=== PATIENT | female | born 1955 | race Caucasian/White ===

== ENCOUNTER → 2017-03-25 | Outpatient (CLI) | payer BC ==
--- NOTE | 2017-03-25 08:15 | US ---
EXAMINATION TYPE: US abdomen complete DATE OF EXAM: 03/25/2017 COMPARISON: NONE CLINICAL HISTORY: Abd pain R10.9. Intermittent RUQ/epigastric pain, worse with fatty food. Nausea and vomiting for 3 months EXAM MEASUREMENTS: Liver Length: 14.0 cm Gallbladder Wall: 0.2 cm CBD: 0.3 cm Spleen: 10.7 cm Right Kidney: 9.9 x 4.6 x 4.9 cm Left Kidney: 11.0 x 4.6 x 4.1 cm *Technical limitations due to large amount of overlying bowel content Pancreas: visualized portions appear wnl Liver: appears wnl Gallbladder: mobile stones Evidence for sonographic Tijerina's sign: No CBD: wnl Spleen: wnl Right Kidney: no evidence of hydronephrosis Left Kidney: no evidence of hydronephrosis Upper IVC: wnl Abd Aorta: wnl The liver is homogenous. The intrahepatic portion of the IVC and proximal abdominal aorta are within normal limits. Common bile duct is unremarkable. The visualized portions of the pancreas are homoge nous. The spleen is unremarkable. Kidneys are symmetric and free of hydronephrosis. No renal lesio ns are seen. IMPRESSION: Cholelithiasis without sonographic evidence of acute cholecystitis. HIDA with CCK scan co uld be performed to evaluate for biliary dyskinesia and/or chronic cholecystitis.
== END | disposition home or self-care (01) ==
LOC: RADUSWWP 06:57
PROVIDERS: ATTEND Internal Medicine Geriatric Medicine
DX: K80.20 Calculus of gallbladder without cholecystitis without obstruction (principal)
CPT/HCPCS: 76700

== ENCOUNTER → 2017-06-23 | Outpatient (CLI) | payer BC ==
--- NOTE | 2017-06-23 16:34 | BD ---
EXAMINATION TYPE: MG DEXA axial skeleton. DATE OF EXAM: 06/23/2017 COMPARISON: NONE CLINICAL HISTORY: 61-year-old female postmenopausal screening without HRT Height: 5 FT 7 1/2 IN Weight: 168 FRAX RISK QUESTIONS: Secondary Osteoporosis: 3. Menopause before 45: AGE 45 Current Tobacco Use: YES RISK FACTORS HISTORY OF: Active: YES Postmenopausal woman: AGE 45 MEDICATIONS: Additional Medications: LISINOPRIL Additional History: EXAM MEASUREMENTS: Bone mineral densitometry was performed using the Revee System. Bone mineral density as measured about the Lumbar spine is: ----- L1-L4(G/cm2): 1.303 T Score Values are as follows: ----- L2: 0.9 ----- L3: 1.6 ----- L4: 0.2 ----- L1-L4: 1.0 BASELINE Bone mineral density about the R hip (g/cm2): 1.085 Bone mineral density about the L hip (g/cm2): 1.171 T Score values are as follows: -----R Neck: 0.3 -----L Neck: 1.0 -----R Total: 0.7 -----L Total: 1.0 BASELINE IMPRESSION: Normal (Values between +1 and -1 indicate normal bone mass). Consider repeating this study in 5 year s or sooner if there is some new clinical indication. NOTE: T-SCORE=SD OF THE YOUNG ADULT MEAN.
--- NOTE | 2017-06-24 11:06 | MM ---
Reason for exam: screening (asymptomatic). History: Patient is postmenopausal. Physical Findings: A clinical breast exam by your physician is recommended on an annual basis and results should be correlated with mammographic findings. MG Screening Mammo w CAD Bilateral CC and MLO view(s) were taken. No prior studies available for comparison. The breast tissue is heterogeneously dense. This may lower the sensitivity of mammography. There are two masses on the left, the first at anterior depth in the upper outer quadrant measuring 4mm. The second in the upper outer quadrant at middle depth measuring 5-6mm. There are regional calcifications in the right upper central, slightly inner breast at 12:30-1:00. There is a 2mm group of calcifications in the upper left breast central or medial on CC view. ASSESSMENT: Incomplete: need additional imaging evaluation, BI-RAD 0 RECOMMENDATION: Special view mammogram of both breasts. If lesion persists on supplemental views, image directed ultrasound is recommended. [facility] will attempt to contact patient to return for supplemental views and ultrasound if indicated.
== END | disposition home or self-care (01) ==
LOC: RADMAMWWP 08:31
PROVIDERS: ATTEND Family Medicine
DX: Z12.31 Encounter for screening mammogram for malignant neoplasm of breast (principal); M89.9 Disorder of bone, unspecified; Z78.0 Asymptomatic menopausal state
CPT/HCPCS: 77067; 77080

== ENCOUNTER → 2017-06-26 | Outpatient (CLI) | payer BC ==
--- NOTE | 2017-06-30 08:52 | MM ---
Reason for exam: additional evaluation requested from abnormal screening. Last mammogram was performed less than 1 month ago. History: Patient is postmenopausal. Physical Findings: Nurse Summary: 1.5cm nodule in the right breast at 1 o'clock and a 0.5cm nodule in the left breast at 1 o'clock (nurse mj). MG Work Up Mamm w CAD BILAT Bilateral ML, CC with magnification, and ML with magnification view(s) were taken. Spot compression MLO and spot compression CC view(s) were taken of the left breast. Prior study comparison: June 23, 2017, bilateral MG screening mammo w CAD. Right: large area of pleomorphic calcifications upper central right breast 10.5cm from nipple. Left: multiple grouped foci of pleomorphic microcalcifications upper central and outer breast. These results were verbally communicated with the patient and result sheet given to the patient on 06/26/17. ASSESSMENT: Incomplete: need additional imaging evaluation, BI-RAD 0 RECOMMENDATION: Ultrasound of both breasts.
--- NOTE | 2017-06-30 08:55 | USB ---
Reason for exam: additional evaluation requested from abnormal screening. History: Patient is postmenopausal. US Breast Workup Limited JERAMIE Left limited breast ultrasound including focal area of concern, retroareolar and axilla demonstrates a 0.3 x 0.4 x 0.4cm cystic, benign lesion at 3 o'clock and a 0.7 x 0.6 x 0.4cm cystic, benign lesion at 3 o'clock. Right limited breast ultrasound including focal area of concern, retroareolar and axilla demonstrates dense tissue is seen at 12 o'clock possibly correlating to the focal asymmetry. These results were verbally communicated with the patient and result sheet given to the patient on 06/26/17. ASSESSMENT: Suspicious, BI-RAD 4 RECOMMENDATION: Stereotactic core biopsy of both breasts. (for calcifications) Called Dr. Asif with mammographic findings and has scheduled an appointment for the patient for 07/07/17 at 3:[address] Love. PRELIMINARY REPORT CALLED AND FAXED TO DR. LOVE ON 06/30/17.
== END | disposition home or self-care (01) ==
LOC: RADMAMWWP 14:56
PROVIDERS: ATTEND Family Medicine
DX: R92.8 Other abnormal and inconclusive findings on diagnostic imaging of breast (principal)
CPT/HCPCS: 77066

== ENCOUNTER → 2017-07-16 | Day surgery (SDC) | payer BC ==
[2017-07-16 09:14] VITALS: RESP 16; BMI 25.4
[2017-07-16 11:28] VITALS: BP 153/83; PULSE 80; TEMP 98
--- NOTE | 2017-07-16 13:51 | MM ---
EXAMINATION TYPE: MG stereo VAD BX LT, MG stereo VAD BX RT DATE OF EXAM: 07/16/2017 COMPARISON: 06/26/2017 CLINICAL HISTORY: Bilateral indeterminate breast calcifications for which stereotactic guided biopsy was recommended. TECHNIQUE: Stereotactic guided core biopsy of both breast. FINDINGS: The procedure of stereotactic guided core biopsy was explained to the patient. Benefits, alternatives, and risks were discussed. An informed consent was then obtained. Preprocedural timeout was performed. Site A (right breast regional calcifications spanning approximately 4.5 cm of the upper inner quadrant): The shortness pathway for biopsy was chosen. Shortness pathway was CC from above approach. Sampling of the most suspicious area within the region of calcifications in the upper inner quadrant was performed. 10 cc of lidocaine without epinephrine was utilized to anesthetize the skin surface and subcutaneous tissues. Prefire images were obtained demonstrating appropriate localization of the targeted calcifications. 10 cc of lidocaine with epinephrine was used to anesthetize the tissues at the site of biopsy after postfire. A vacuum assisted biopsy gun was used to obtain 9 core samples. Postprocedural biopsy marker was placed and appears in appropriate position on post procedural LM and CC mammograms. Site B (left breast loosely grouped calcifications spanning 2 cm upper inner quadrant): The shortness pathway for biopsy was chosen. Shortness pathway was CC from above approach. Sampling of the most suspicious area within the loosely grouped calcifications in the upper inner quadrant was performed. 10 cc of lidocaine without epinephrine was utilized to anesthetize the skin surface and subcutaneous tissues. Prefire images were obtained demonstrating appropriate localization of the targeted calcifications. 10 cc of lidocaine with epinephrine was used to anesthetize the tissues at the site of biopsy after postfire. A vacuum assisted biopsy gun was used to obtain 9 core samples. Postprocedural biopsy marker was placed and appears in appropriate position on post procedural LM and CC mammograms. The patient tolerated the procedure well without any immediate complication. The patient was kept in the radiology department for short stay after the procedure and then discharged home in stable condition. Targeted calcifications are identified in specimen mammogram. IMPRESSION: SUCCESSFUL, UNCOMPLICATED STEREOTACTIC GUIDED CORE BIOPSY OF BILATERAL BREAST CALCIFICATIONS DESCRIBED ABOVE, FULL PATHOLOGY RESULTS TO FOLLOW. RECOMMENDATIONS FOR THE REMAINING CALCIFICATIONS OVERLY MADE ON RADIOLOGIC/ PATHOLOGIC CORRELATION. Pathology Results: High Risk A. BREAST, RIGHT, STEREOTACTIC CORE BIOPSY: Fibrocystic changes including cysts , fibrosis, focal usual type ductal hyperplasia and calcifications. B. BREAST, LEFT, STEREOTACTIC CORE BIOPSY: Focal atypical lobular hyperplasia ( ALH). Fibrocystic changes including cysts, fibrosis, usual type ductal hyperplasia including focal papillary usual ductal hyperplasia, apocrine metaplasia and calcifications. See note. Recommendation Surgical consult. Increased risk left breast. MTDD
== END | disposition home or self-care (01) ==
LOC: RADMAMWWP 08:51
PROVIDERS: ATTEND Surgery
DX: N60.32 Fibrosclerosis of left breast (principal); N60.31 Fibrosclerosis of right breast; N60.02 Solitary cyst of left breast; N60.01 Solitary cyst of right breast; N60.92 Unspecified benign mammary dysplasia of left breast; N60.82 Other benign mammary dysplasias of left breast
CPT/HCPCS: 88305; 88342; 88341; 19081; 19082; A4648; J2001

== ENCOUNTER 2017-08-12 06:32 | Day surgery (SDC) | payer BC ==
[2017-08-07 11:55] VITALS: BMI 24.7
[~2017-08-12 06:32] MED LIST: HEPARIN SODIUM,PORCINE 5,000 UNIT/ML 1 ML VIAL SQ ONE; Pre Op ABX Message 1 EACH MISC MISCELLANE ONE
[2017-08-12] MEDS ORDERED: LIDOCAINE 1% 20 ML VIAL (10MG/ML) FOR IV START INTRADERMA ONE (07:00)
[2017-08-12] MEDS ORDERED: ALPRAZolam 0.5 MG TAB PO ONE (07:05)
[2017-08-12] MEDS ORDERED: SODIUM BICARB 4% 5 ML VIAL (0.48 MEQ/ML) MISCELLANE ONE (08:32)
[2017-08-12] MEDS ORDERED: LIDOCAINE 1% INJ 10MG/ML (20 ML MDV) SQ ONE (08:32)
[2017-08-12] MEDS ORDERED: SUCCINYLCHOLINE CHLORIDE 100 MG/5 ML SYR IV ONE (09:09)
[2017-08-12] MEDS ORDERED: LIDOCAINE 1% INJ 10MG/ML (20 ML MDV) ONE (09:09)
[2017-08-12] MEDS ORDERED: fentaNYL (PF) 50 MCG/ML 2 ML AMP ONE (09:09)
[2017-08-12] MEDS ORDERED: KETOROLAC 30 MG/ML 1 ML VIAL ONE (09:09)
[2017-08-12] MEDS ORDERED: MIDAZOLAM 2 MG/2 ML VIAL ONE (09:09)
[2017-08-12] MEDS ORDERED: PROPOFOL 10 MG/ML 20 ML VIAL IV ONE (09:09)
[2017-08-12] MEDS ORDERED: LACTATED RINGERS 1,000 ML IV ONE (10:48)
[2017-08-12] MEDS ORDERED: DEXAMETHASONE SOD PHOSPHATE 10 MG/ML 1 ML VIAL IV ONE (11:13)
[2017-08-12] MEDS ORDERED: LACTATED RINGERS 1,000 ML IV SCH (11:13)
[2017-08-12] MEDS ORDERED: ALPRAZolam 0.25 MG TAB PO PRN (11:13)
[2017-08-12] MEDS ORDERED: ONDANSETRON 4 MG/2 ML VIAL IVP ONE (11:13)
[2017-08-12] MEDS ORDERED: HYDROmorphone 0.5 MG/0.5 ML SYRINGE IVP PRN (11:13)
[2017-08-12] MEDS ORDERED: HYDROcodone/APAP 7.5-325MG 1 EACH TAB PO ONE (11:35)
[2017-08-12 11:37] VITALS: RESP 16
[2017-08-12] MEDS: LACTATED RINGERS 1,000 ML IV ONE ×2 (11:53→13:25)
[2017-08-12 14:34] VITALS: TEMP 98.2
[2017-08-12 14:42] VITALS: BP 149/80; PULSE 74
--- NOTE | 2017-08-12 15:26 | MM ---
EXAMINATION TYPE: MG pre op needle loc LT, MG surgical specimen LT DATE OF EXAM: 08/12/2017 COMPARISON: Stereotactic guided core biopsies July 16, 2017 and older studies CLINICAL HISTORY: Abnormal left breast biopsy with focal atypical lobular hyperplasia TECHNIQUE: Needle localization with wire placement and surgical excision of area of concern in the left breast. FINDINGS: The procedure of needle localization with wire placement and than surgical excision was explained to the patient. Benefits, alternatives, and risks were discussed. An informed consent was then obtained. The shortest pathway for procedure was chosen. Shortest pathway was medial approach. The overlying skin was prepped and draped in usual sterile fashion. Lidocaine buffered with bicarbonate was used as anesthetic into the skin and subcutaneous tissue up to the level of area of concern. A 7 cm needle was used. It was placed via a medial approach under mammographic guidance. Subsequent 90 degrees mammogram show the needle to be in satisfactory position relative to the targeted area. At this point, wire was placed and the needle was withdrawn. The wire was fixed to patient's skin. Images were marked for surgeon. The patient tolerated the procedure well without any immediate complication. The patient was kept in the radiology department for short stay after the procedure and then taken to surgery for surgical excision. Targeted biopsy clip and wire are identified in specimen mammogram. The patient was kept in hospital for short stay after the procedure and then discharged home in stable condition. IMPRESSION: Successful, uncomplicated needle localization with wire placement and surgical excision of targeted biopsy clip in the left breast, full pathology results to follow. 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 Focal atypical lobular hyperplasia (ALH). Proliferative fibrocystic changes including fibrosis, cysts, florid usual type ductal hyperplasia, columnar cell hyperplasia with focal flat epithelial atypia, and calcifications. Previous biopsy site. Recommendation Surgical consult of the left breast. DEND
--- NOTE | 2017-08-12 16:02 | P.OP ---
Date of Procedure: 08/12/17 Preoperative Diagnosis: Abnormal left mammogram Postoperative Diagnosis: Abnormal left mammogram Defer to pathology Procedure(s) Performed: Left breast biopsy with needle localization Anesthesia: URIEL Surgeon: Nick Love Estimated Blood Loss (ml): 5 Pathology: other (Left breast lumpectomy) Condition: stable Disposition: PACU Description of Procedure: The patient's placed on the operative table in the supine position. She received general anesthesia. Her left breast was prepped and draped in usual sterile fashion. The patient had been previously needle localized. A skin incision was made at the wire site and then using the Harmonic scissors a core of tissue around the wire was excised. There was no bleeding seen. Specimen sent to mammography. The skin was closed interrupted 3-0 Monocryl suture. Dermabond was applied. Patient top procedure well and was sent to recovery in stable condition.
== END 2017-08-12 12:10 | disposition home or self-care (01) ==
LOC: OR 06:32
PROVIDERS: ATTEND Surgery
DX: D05.12 Intraductal carcinoma in situ of left breast (principal); N62 Hypertrophy of breast; N60.32 Fibrosclerosis of left breast; N60.92 Unspecified benign mammary dysplasia of left breast; R92.1 Mammographic calcification found on diagnostic imaging of breast; I10 Essential (primary) hypertension; K21.9 Gastro-esophageal reflux disease without esophagitis; Z79.82 Long term (current) use of aspirin; Z79.899 Other long term (current) drug therapy
CPT/HCPCS: 88342; 88307; 88341; 76098; 19281; 19125; J2250; J2001; J3010; J1885; J0330; J2704

== ENCOUNTER → 2017-12-04 | Outpatient (CLI) | payer BC ==
--- NOTE | 2017-12-14 17:10 | ECHOF ---
Referral Reason:Cardiac Murmur R01.1 MEASUREMENTS -------- HEIGHT: 170.2 cm WEIGHT: 59.0 kg BP: IVSd: 0.9 cm (0.6 - 1.1) LVIDd: 4.5 cm (3.9 - 5.3) LVPWd: 0.9 cm (0.6 - 1.1) IVSs: 1.0 cm LVIDs: 3.1 cm LVPWs: 1.1 cm LAESV Index (A-L): 33.43 ml/m Ao Diam: 3.1 cm (2.0 - 3.7) AV Cusp: 1.7 cm (1.5 - 2.6) LA Diam: 2.9 cm (2.7 - 3.8) MV EXCURSION: 16.399 mm (> 18.000) MV EF SLOPE: 94 mm/s (70 - 150) EPSS: 0.3 cm MV E Jasen: 1.05 m/s MV DecT: 212 ms MV A Jasen: 0.99 m/s MV E/A Ratio: 1.05 RAP: 5.00 mmHg RVSP: 13.80 mmHg FINDINGS -------- Sinus rhythm. This was a technically good study. The left ventricular size is normal. Left ventricular wall thickness is normal. Overall left vent ricular systolic function is normal with, an EF between 55 - 60 %. The right ventricle is normal in size and function. LA is midly dilated 29-33ml/m2. The right atrium is normal in size. Aortic valve is trileaflet and is mildly thickened. There is no evidence of aortic regurgitation. There is no evidence of aortic stenosis. The mitral valve leaflets are mildly thickened. There is trace to mild mitral regurgitation. Trace tricuspid regurgitation present. Right ventricular systolic pressure is normal at < 35 mmHg. There is no evidence of pulmonary hypertension. Trace/mild (physiologic) pulmonic regurgitation. The aortic root size is normal. Normal inferior vena cava with normal inspiratory collapse consistent with estimated right atrial pre ssure of 5 mmHg. There is no pericardial effusion. CONCLUSIONS -------- 1. Sinus rhythm. 2. This was a technically good study. 3. The left ventricular size is normal. 4. Left ventricular wall thickness is normal. 5. Overall left ventricular systolic function is normal with, an EF between 55 - 60 %. 6. LA is midly dilated 29-33ml/m2. 7. Aortic valve is trileaflet and is mildly thickened. 8. The mitral valve leaflets are mildly thickened. 9. There is trace to mild mitral regurgitation. 10. Trace tricuspid regurgitation present. 11. Right ventricular systolic pressure is normal at < 35 mmHg. 12. There is no evidence of pulmonary hypertension. 13. Trace/mild (physiologic) pulmonic regurgitation. 14. The aortic root size is normal. 15. There is no pericardial effusion. BEARING MACHINE OPERATOR: Gómez Lyons RDCS
== END | disposition home or self-care (01) ==
LOC: RADECHMAIN 14:42
PROVIDERS: ATTEND Family Medicine
DX: I34.0 Nonrheumatic mitral (valve) insufficiency (principal); I37.1 Nonrheumatic pulmonary valve insufficiency; I35.8 Other nonrheumatic aortic valve disorders
CPT/HCPCS: 93306

== ENCOUNTER → 2017-12-22 | Outpatient (CLI) | payer BC ==
--- NOTE | 2017-12-22 16:29 | CT ---
EXAMINATION TYPE: CT abdomen pelvis w con DATE OF EXAM: 12/22/2017 HISTORY: recent abnormal colonoscopy, hx of breast ca CT DLP: 388mGycm Automated Exposure Control for Dose Reduction was Utilized. CONTRAST: CT scan of the abdomen and pelvis is performed with oral and with IV Contrast, patient injected with 100 mL of Isovue 300. COMPARISON: None FINDINGS: LUNG BASES: No significant abnormality is appreciated. LIVER/GB: No significant abnormality is appreciated. PANCREAS: No significant abnormality is seen. SPLEEN: No significant abnormality is seen. ADRENALS: Low dense thickening to both adrenal glands is consistent with benign hyperplasia. KIDNEYS: Symmetric cortical medullary uptake and excretion from both kidneys is seen with subcentimet er low dense lesion medial left kidney coronal image 48 consistent with simple cysts noted. There is mild right-sided pyelocaliectasis without obstructing calculus clearly identified. No significant hyd roureter is noted. BOWEL: The oral contrast reaches level of the cecum. There is mild to moderate dilatation of the dist al ileum through terminal ileum measuring up to 3.9 cm diameter coronal image 33. Mild wall thickenin g is present. There is mild wall thickening in the cecum. Normal-appearing appendix from base of cecu m is identified. Evaluation of distal bowel is suboptimal due to lack of enteric contrast. There is e ccentric thickening in the rectum, correlate clinically. UTERUS/ADNEXA: Anteverted uterus is present. Occasional pelvic phleboliths are seen. LYMPH NODES: No greater than 1cm abdominal or pelvic lymph nodes are appreciated. OSSEOUS STRUCTURES: Mild to moderate multilevel spurring in the lumbar spine is present. OTHER: There is 3.8 cm low dense probable cystic lesion in the posterior lower abdominal soft tissue axial image 38 favoring benign dermatologic lesion such as sebaceous cyst. There is mild to moderate calcified plaque of the abdominal aorta extending into branch vessels. IMPRESSION: No suspicious mass or adenopathy to suggest metastatic disease.
== END | disposition home or self-care (01) ==
LOC: RADCTMAIN 14:16
PROVIDERS: ATTEND Internal Medicine Gastroenterology
DX: R19.09 Other intra-abdominal and pelvic swelling, mass and lump (principal)
CPT/HCPCS: 74177; Q9967

== ENCOUNTER → 2017-12-23 | Outpatient (CLI) | payer BC ==
--- NOTE | 2017-12-23 08:39 | XR ---
EXAMINATION TYPE: XR chest 2V DATE OF EXAM: 12/23/2017 COMPARISON: NONE HISTORY: Presurgical study. TECHNIQUE: Frontal and lateral views of the chest are obtained. FINDINGS: There is no focal air space opacity, pleural effusion, or pneumothorax seen. The cardiac silhouette size is within normal limits. Fairly moderate multilevel lateral spurring in the lower tho racic spine is present. IMPRESSION: No acute cardiopulmonary process.
== END | disposition home or self-care (01) ==
LOC: RADXRMAIN 08:17
PROVIDERS: ATTEND Family Medicine
DX: Z01.818 Encounter for other preprocedural examination (principal)
CPT/HCPCS: 71046

== ENCOUNTER → 2018-03-08 | Outpatient (CLI) | payer BC ==
--- NOTE | 2018-03-09 15:26 | MM ---
Reason for exam: follow-up at short interval from prior study. Last mammogram was performed 8 months ago. History: Patient is postmenopausal, has history of breast cancer at age 62, has history of high-risk lesion on a previous biopsy at age 62, and has history of colon cancer at age 62. Family history of breast cancer in paternal grandmother. Malignant MG pre op needle loc LT of the left breast, August 12, 2017. High risk MG stereo VAD BX addl LT of the left breast, July 16, 2017. High risk MG stereo VAD BX RT of the right breast, July 16, 2017. Taking antineoplastic beginning at age 62. Physical Findings: Nurse did not find any significant physical abnormalities on exam. MG Diagnostic Mammo w CAD JERAMIE Bilateral CC and MLO view(s) were taken. Prior study comparison: June 26, 2017, bilateral MG work up mamm w CAD BILAT. June 23, 2017, bilateral MG screening mammo w CAD. The breast tissue is heterogeneously dense. This may lower the sensitivity of mammography. Regional calcifications at biopsy clip redemonstrated on the right . Post surgical changes on the left for path. proven DCIS. Nodular asymmetric density posterior central right MLO view disperses on true lateral. Precautionary 6 month follow up is recommended. These results were verbally communicated with the patient and result sheet given to the patient on 03/08/18. ASSESSMENT: Probably benign, BI-RAD 3 RECOMMENDATION: Follow-up diagnostic mammogram of the right breast in 6 months.
== END | disposition home or self-care (01) ==
LOC: RADMAMWWP 09:18
PROVIDERS: ATTEND Surgery
DX: Z08 Encounter for follow-up examination after completed treatment for malignant neoplasm (principal); Z85.3 Personal history of malignant neoplasm of breast
CPT/HCPCS: 77066

== ENCOUNTER 2018-04-05 11:05 | Inpatient (IN) | payer BC ==
[2018-04-05] MEDS ORDERED: SODIUM CHLORIDE 0.9% 1,000 ML IV STA (11:48)
--- NOTE | 2018-04-05 11:53 | ED ---
General Adult HPI - General Chief complaint: Nausea/Vomiting/Diarrhea Stated complaint: POSS MED REACTION, Ca PATIENT, POSS DEHYDRATION Time Seen by Provider: 04/05/18 11:29 Source: patient, RN notes reviewed, old records reviewed Mode of arrival: ambulatory Limitations: no limitations - History of Present Illness Initial comments: 62-year-old female patient past medical history of hypertension, colon cancer, rest cancer, currently undergoing chemotherapy. Patient just completed her second round of chemotherapy approximately 1 week ago. Patient complains of constant diarrhea, intermittent nausea and vomiting for the last week. Patient was seen by her oncologist on Thursday, who gave her IV fluids and prescribed doxycycline for suspected urinary tract infection. Patient currently denies any dysuria. Patient has been taking Imodium without relief from the diarrhea. Patient has not had any emesis today, had 1 episode of emesis yesterday. Patient denies any blood in her stools. Patient denies any abdominal pain. Patient denies any chest pain or shortness of breath. Patient denies any fevers at home. Systemic: Pt denies myalgia, fever/chills, rash. Pt denies weakness, night sweats, weight loss. Neuro: Pt denies headache, visual disturbances, syncope or pre-syncope. HEENT: Pt denies ocular discharge or irritation, otalgia, rhinorrhea, pharyngitis or notable lymphadenopathy. Cardiopulmonary: Pt denies chest pain, SOB, heart palpitations, dyspnea on exertion. Abdominal/GI: Pt denies abdominal pain. : Pt denies dysuria, burning w/ urination, frequency/urgency. Denies new onset urinary or bowel incontinence. MSK: Pt denies myalgia, loss of strength or function in extremities. Neuro: Pt denies new onset weakness, paresthesias. - Related Data Home Medications Medication Instructions Recorded Confirmed Aspirin [Adult Low Dose Aspirin EC] 81 mg PO DAILY 07/10/17 04/05/18 Cholecalciferol (Vitamin D3) 2,000 unit PO DAILY 07/10/17 04/05/18 [Vitamin D3] Cyanocobalamin [Vitamin B-12] 500 mcg PO DAILY 07/10/17 04/05/18 Lisinopril [Zestril] 10 mg PO DAILY 07/10/17 04/05/18 Multivitamins, Thera [Multivitamin 1 tab PO DAILY 07/10/17 04/05/18 (formulary)] Tamoxifen Citrate 20 mg PO DAILY 12/16/17 04/05/18 Biotin 5 mg PO DAILY 04/05/18 04/05/18 Capecitabine [Xeloda] 750 mg PO BID 04/05/18 04/05/18 Doxycycline Hyclate [Vibramycin] 100 mg PO BID 04/05/18 04/05/18 Ferrous Sulfate [Feosol] 325 mg PO DAILY 04/05/18 04/05/18 Loperamide [Imodium] 2 mg PO QID PRN 04/05/18 04/05/18 Prochlorperazine [Compazine] 10 mg PO Q6H PRN 04/05/18 04/05/18 Allergies Allergy/AdvReac Type Severity Reaction Status Date / Time No Known Allergies Allergy Verified 04/05/18 11:30 Review of Systems ROS Statement: Those systems with pertinent positive or pertinent negative responses have been documented in the HPI. ROS Other: All systems not noted in ROS Statement are negative. Past Medical History Past Medical History: Cancer, GERD/Reflux, Hypertension Additional Past Medical History / Comment(s): LT BREAST CANCER History of Any Multi-Drug Resistant Organisms: None Reported Past Surgical History: No Surgical Hx Reported Additional Past Surgical History / Comment(s): LT BREAST LUMPECTOMY-RADIATION Past Anesthesia/Blood Transfusion Reactions: No Reported Reaction Past Psychological History: No Psychological Hx Reported Smoking Status: Current every day smoker - Past Family History Mother Family Medical History: No Reported History General Exam - General Exam Comments Initial Comments: Constitutional: NAD, AOX3, Pt has pleasant affect. HEENT: NC/AT, trachea midline, neck supple, no lymphadenopathy. Posterior pharynx non erythematous, without exudates. External ears appear normal, without discharge. Mucous membranes moist. Eyes PERRLA, EOM intact. There is no scleral icterus. No pallor noted. Cardiopulmonary: RRR, no murmurs, rubs or gallops, no JVD noted. Lungs CTAB in anterior and posterior ferreira. No peripheral edema. Abdominal exam: Abdomen soft and non-distended. Abdomen non-tender to palpation in all 4 quadrants. Bowel sounds active in LLQ. No hepatosplenomegaly. No ecchymosis Neuro: CN II-XII grossly intact. No nuchal rigidity. MSK: No posterior calf tenderness bilaterally, homans sign negative bilaterally. Posterior tibialis and radial pulse +2 bilaterally. Sensation intact in upper and lower extremities. Full active ROM in upper and lower extremities, 5/5 stregnth. Limitations: no limitations Course Vital Signs 04/05/18 04/05/18 04/05/18 11:19 12:44 13:19 Temperature 97.7 F Pulse Rate 128 H 101 H 108 H Respiratory 22 Rate Blood Pressure 119/86 O2 Sat by Pulse 97 99 100 Oximetry 04/05/18 04/05/18 15:28 16:51 Temperature 97.1 F L 97.1 F L Pulse Rate 99 101 H Respiratory 18 18 Rate Blood Pressure 125/94 135/84 O2 Sat by Pulse 100 100 Oximetry Medical Decision Making - Medical Decision Making 62-year-old female patient past medical history of hypertension, colon cancer, rest cancer, currently undergoing chemotherapy. Patient just completed her second round of chemotherapy approximately 1 week ago. Patient complains of constant diarrhea, intermittent nausea and vomiting for the last week. Patient was seen by her oncologist on Thursday, who gave her IV fluids and prescribed doxycycline for suspected urinary tract infection. Patient currently denies any dysuria. Patient has been taking Imodium without relief from the diarrhea. Patient has not had any emesis today, had 1 episode of emesis yesterday. Patient denies any abdominal pain. Patient denies any chest pain or shortness of breath. Pt vital signs displayed mild tachycardia with imprved with fluids. Pt blood pressure stable, afebrile. Physical exam displayed a nontender abdomen , no other pathologic findings noted. Laboratory was gave revealed non- impressive CBC. CMP revealed mild hyponatremia, mild RUKHSANA of 1.48. KUB displayed no evidence of bowel obstruction or free intraperitoneal air. Generalized colonic air fluid levels suggest colonic ileus or liquid stools related to colitis/enteritis. Case discussed in depth with Dr. Galaviz. Pt to be admitted for rukhsana and further evaluation of diarrhea. Stool samples pending. - Lab Data Result diagrams: 04/05/18 11:32 04/05/18 11:32 Lab Results 04/05/18 04/05/18 04/05/18 Range/Units 11:32 11:32 11:55 WBC 8.6 (3.8-10.6) k/uL RBC 4.12 (3.80-5.40) m/uL Hgb 14.1 (11.4-16.0) gm/dL Hct 40.5 (34.0-46.0) % MCV 98.2 (80.0-100.0) fL MCH 34.2 (25.0-35.0) pg MCHC 34.8 (31.0-37.0) g/dL RDW 18.7 H (11.5-15.5) % Plt Count 432 (150-450) k/uL Neutrophils % (Manual) 18 % Band Neutrophils % 51 % Lymphocytes % (Manual) 18 % Monocytes % (Manual) 14 % Neutrophils # (Manual) 5.90 (1.3-7.7) k/uL Lymphocytes # (Manual) 1.55 (1.0-4.8) k/uL Monocytes # (Manual) 1.20 H (0-1.0) k/uL Nucleated RBCs 0 (0-0) /100 WBC Poikilocytosis (manual Present Anisocytosis Slight Macrocytosis Slight Sodium 128 L (137-145) mmol/L Potassium 3.9 (3.5-5.1) mmol/L Chloride 95 L (98-107) mmol/L Carbon Dioxide 20 L (22-30) mmol/L Anion Gap 13 mmol/L BUN 34 H (7-17) mg/dL Creatinine 1.48 H (0.52-1.04) mg/dL Est GFR (CKD-EPI)AfAm 44 (>60 ml/min/1.73 sqM) Est GFR (CKD-EPI)NonAf 38 (>60 ml/min/1.73 sqM) Glucose 134 H (74-99) mg/dL Calcium 9.5 (8.4-10.2) mg/dL Total Bilirubin 0.6 (0.2-1.3) mg/dL AST 18 (14-36) U/L ALT 19 (9-52) U/L Alkaline Phosphatase 62 (38-126) U/L Total Protein 5.5 L (6.3-8.2) g/dL Albumin 2.9 L (3.5-5.0) g/dL Stool Occult Blood Positive H (Negative) Disposition Clinical Impression: Diarrhea, Breast cancer, Colon cancer Disposition: ADMITTED IP TO THIS HOSP Condition: Serious Is patient prescribed a controlled substance at d/c from ED?: No
[2018-04-05 12:14] LABS: Anisocytosis Slight; HCT 40.5 % (34.0-46.0); HGB 14.1 gm/dL (11.4-16.0); MCH 34.2 pg (25.0-35.0); MCHC 34.8 g/dL (31.0-37.0); MCV 98.2 fL (80.0-100.0); Macrocytosis Slight; Mean Platelet Volume 6.8; Platelet Count 432 k/uL (150-450); RBC 4.12 m/uL (3.80-5.40); RDW 18.7 % (11.5-15.5); WBC 8.6 k/uL (3.8-10.6)
[2018-04-05 12:15] LABS: Albumin 2.9 g/dL (3.5-5.0); Calcium 9.5 mg/dL (8.4-10.2); Potassium 3.9 mmol/L (3.5-5.1); Total Bilirubin 0.6 mg/dL (0.2-1.3); Total Protein 5.5 g/dL (6.3-8.2)
[2018-04-05 12:50] LABS: Band Neutrophils % 51 %; Lymphocytes # (M) 1.55 k/uL (1.0-4.8); Neutrophils % (M) 18 %; Nucleated Red Blood Cells 0 /100 WBC (0-0); Total Cells Counted 200
[2018-04-05 12:52] LABS: Poikilocytosis (M) Present
[2018-04-05] MEDS ORDERED: SODIUM CHLORIDE 0.9% 500 ML 500 ML IV STA (13:13)
--- NOTE | 2018-04-05 13:47 | XR ---
EXAMINATION TYPE: XR KUB DATE OF EXAM: 04/05/2018 CLINICAL DATA: 62-year-old female nausea, vomiting, diarrhea, pain, PHH COMPARISON: None FINDINGS: Lung bases are clear. No evidence for free intraperitoneal air. No dilated small bowel or small bowel air-fluid levels. Numerous air-fluid levels throughout the colo n without significant stool material seen. Air-fluid levels extending distally to the rectum. No suspicious calcifications identified. IMPRESSION: 1. No evidence of bowel obstruction or free intraperitoneal air. 2. Generalized colonic air-fluid levels suggest colonic ileus or liquid stool related to colitis/ente ritis.
[2018-04-05] MEDS ORDERED: NALOXONE 0.4 MG/ML 1 ML VIAL IV PRN (15:17)
[2018-04-05] MEDS ORDERED: IBUPROFEN 400 MG TAB PO PRN (15:17)
[2018-04-05] MEDS: ONDANSETRON 4 MG/2 ML VIAL IVP PRN (19:45)
[2018-04-05] MEDS: SODIUM CHLORIDE 0.9% 1,000 ML IV SCH (19:50)
[2018-04-05] MEDS: LOPERAMIDE 2 MG CAP PO PRN (19:51)
[2018-04-05 22:10] LABS: Appearance,Urine Cloudy (Clear); Bacteria,Urine Rare /hpf; Bilirubin,Urine Negative (Negative); Blood,Urine Small (Negative); Color,Urine Yellow; Glucose,Urine (UA) Negative (Negative); Hyaline Casts,Urine 68 /lpf (0-2); Ketones,Urine 1+ (Negative); Leukocyte Esterase,Urine Large (Negative); Mucus,Urine Few /hpf; Nitrite,Urine Negative (Negative); PH, Urine 5.5 (5.0-8.0); Protein,Urine 2+ (Negative); RBC,Urine 4 /hpf (0-5); Specific Gravity,Urine 1.021 (1.001-1.035); Squamous Epithelial Cell,Urine 5 /hpf (0-4); Urobilinogen,Urine <2.0 mg/dL (<2.0)
[2018-04-06] MEDS: ONDANSETRON 4 MG/2 ML VIAL IVP PRN ×4 (01:44→21:16)
[2018-04-06] MEDS: LOPERAMIDE 2 MG CAP PO PRN ×4 (01:47→21:16)
[2018-04-06] MEDS: SODIUM CHLORIDE 0.9% 1,000 ML IV SCH ×3 (03:50→12:51)
[2018-04-06] MEDS ORDERED: LISINOPRIL 10 MG TAB PO SCH (09:00)
[2018-04-06 09:11] LABS: Albumin 2.2 g/dL (3.5-5.0); Calcium 8.2 mg/dL (8.4-10.2); Potassium 3.2 mmol/L (3.5-5.1); Total Bilirubin 0.4 mg/dL (0.2-1.3); Total Protein 4.4 g/dL (6.3-8.2)
[2018-04-06 09:19] LABS: Anisocytosis Slight; HCT 32.3 % (34.0-46.0); HGB 11.3 gm/dL (11.4-16.0); MCH 34.9 pg (25.0-35.0); MCHC 34.9 g/dL (31.0-37.0); MCV 100.1 fL (80.0-100.0); Macrocytosis Moderate; Mean Platelet Volume 6.5; Platelet Count 321 k/uL (150-450); RBC 3.23 m/uL (3.80-5.40); RDW 18.8 % (11.5-15.5); WBC 6.4 k/uL (3.8-10.6)
[2018-04-06] MEDS: CHOLESTYRAMINE (WITH SUGAR) 4 GM PACKET PO SCH ×3 (10:07→18:00)
[2018-04-06] MEDS: ASPIRIN 81 MG PO SCH (10:37)
[2018-04-06] MEDS: TAMOXIFEN 10 MG TAB PO SCH (10:37)
[2018-04-06 10:45] LABS: Band Neutrophils % 11 %; Lymphocytes # (M) 1.28 k/uL (1.0-4.8); Monocytes # (M) 2.05 k/uL (0-1.0); Neutrophils % (M) 39 %; Nucleated Red Blood Cells 0 /100 WBC (0-0); Total Cells Counted 200
--- NOTE | 2018-04-06 11:34 | P.HPIM ---
History of Present Illness H&P Date: 04/06/18 Chief Complaint: Vomiting and diarrhea This is a 62-year-old female patient of Dr. Asif with past medical history of hypertension, breast cancer, colon cancer. Regarding colon cancer, patient underwent a right colectomy done with Dr. Kulkarni on 12/31/2017, she has now completed her second round of chemotherapy and developed severe diarrhea, vomiting and couldn't keep anything down. She has had loose diarrhea almost every half hour up to 20 times per day. She denies having any history of DVT since diagnosed with cancer. She has had weight loss over the past year both intentional and from the colon cancer. She states she saw Dr. James on Thursday and there is concern that it could be related to a urinary tract infection and she was started on doxycycline. Patient tried taking Imodium without any improvement of her loose stools. She is currently on Xeloda orally twice daily for colon cancer and tamoxifen 20 mg daily for breast cancer. She is status post left breast lumpectomy and radiation treatment. Patient came into [facility] emergency center for evaluation. Patient was afebrile, heart rate in the low 100s. WBD, hemoglobin and platelets within normal limits. Sodium 128, potassium 3.9, chloride 95, CO2 20 , BUN 34 and creatinine 1.48, blood sugar 134. Patient denies history of diabetes. Liver function tests within normal limits, albumin 2.9. Stool for occult blood and WBC positive. C. difficile toxin negative. Urinalysis was cloudy, leukoesterase large, nitrate negative, bacteria rare, squamous cell 5, hyalin casts 68. Urine and stool cultures in progress. KUB reveals no evidence of bowel obstruction or free intraperitoneal air. Generalized colonic air-fluid levels suggest colonic ileus or liquid stool related to colitis or enteritis Review of Systems All systems: negative Constitutional: Reports fatigue, Reports poor appetite, Reports weight loss, Denies anorexia, Denies chills, Denies fever, Denies weakness Eyes: denies blurred vision, denies pain Ears, nose, mouth and throat: Denies dysphagia, Denies headache, Denies hoarseness, Denies sore throat, Denies vertigo Cardiovascular: Denies chest pain, Denies dyspnea on exertion, Denies edema, Denies leg edema, Denies lightheadedness, Denies shortness of breath, Denies syncope Respiratory: Denies cough, Denies cough with sputum, Denies dyspnea, Denies excessive sputum, Denies hemoptysis, Denies home oxygen, Denies wheezing Gastrointestinal: Reports abdominal pain, Reports diarrhea, Reports loss of appetite, Reports nausea, Reports vomiting Genitourinary: Denies dysuria, Denies hematuria Musculoskeletal: Denies frequent falls, Denies gait dysfunction, Denies myalgias Integumentary: Denies pruritus, Denies rash, Denies wounds Neurological: Denies aphasia, Denies change in mentation, Denies change in smell /taste, Denies gait dysfunction, Denies head injury, Denies headaches, Denies numbness, Denies seizures, Denies vertigo, Denies weakness Psychiatric: Denies anxiety, Denies depression Endocrine: Denies fatigue, Denies weight change Past Medical History Past Medical History: Cancer, GERD/Reflux, Hypertension Additional Past Medical History / Comment(s): LT BREAST CANCER, colon cancer stage II status post right colectomy History of Any Multi-Drug Resistant Organisms: None Reported Past Surgical History: No Surgical Hx Reported Additional Past Surgical History / Comment(s): LT BREAST LUMPECTOMY-RADIATION Past Anesthesia/Blood Transfusion Reactions: No Reported Reaction Past Psychological History: No Psychological Hx Reported Smoking Status: Former smoker Additional Past Alcohol Use History / Comment(s): Patient was a smoker and quit in December 2017. She denies any alcohol use. Patient lives alone, . - Past Family History Mother Family Medical History: No Reported History Additional Family Medical History / Comment(s): Mother is in her 80s with history of COPD and dementia. Father Additional Family Medical History / Comment(s): Father is in his 80s with history of atrial fibrillation. Sister(s) Additional Family Medical History / Comment(s): Patient has 1 sister with no major medical problems. Patient does not have any brothers. Patient has 2 daughters with no major medical problems. Medications and Allergies Home Medications Medication Instructions Recorded Confirmed Type Aspirin [Adult Low Dose Aspirin EC] 81 mg PO DAILY 07/10/17 04/05/18 History Cholecalciferol (Vitamin D3) 2,000 unit PO DAILY 07/10/17 04/05/18 History [Vitamin D3] Cyanocobalamin [Vitamin B-12] 500 mcg PO DAILY 07/10/17 04/05/18 History Lisinopril [Zestril] 10 mg PO DAILY 07/10/17 04/05/18 History Multivitamins, Thera [Multivitamin 1 tab PO DAILY 07/10/17 04/05/18 History (formulary)] Tamoxifen Citrate 20 mg PO DAILY 12/16/17 04/05/18 History Biotin 5 mg PO DAILY 04/05/18 04/05/18 History Capecitabine [Xeloda] 750 mg PO BID 04/05/18 04/05/18 History Doxycycline Hyclate [Vibramycin] 100 mg PO BID 04/05/18 04/05/18 History Ferrous Sulfate [Feosol] 325 mg PO DAILY 04/05/18 04/05/18 History Loperamide [Imodium] 2 mg PO QID PRN 04/05/18 04/05/18 History Prochlorperazine [Compazine] 10 mg PO Q6H PRN 04/05/18 04/05/18 History Allergies Allergy/AdvReac Type Severity Reaction Status Date / Time No Known Allergies Allergy Verified 04/05/18 11:30 Physical Exam Vitals: Vital Signs Temp Pulse Pulse Resp BP BP Pulse Ox 04/06/18 08:00 109 H 04/06/18 07:44 98.0 F 109 H 15 112/62 97 04/06/18 05:00 97.6 F 103 H 18 133/73 97 04/05/18 23:30 102 H 17 04/05/18 20:53 97.6 F 102 H 17 146/78 100 04/05/18 16:51 97.1 F L 101 H 18 135/84 100 04/05/18 15:28 97.1 F L 99 18 125/94 100 04/05/18 13:19 108 H 100 04/05/18 12:44 101 H 99 04/05/18 11:19 97.7 F 128 H 22 119/86 97 Intake and Output 04/05/18 04/06/18 04/06/18 22:59 06:59 14:59 Intake Total 1600 Output Total 250 Balance 1350 Intake: Intake, IV Titration 400 Amount Sodium Chloride 0.9% 1, 400 000 ml @ 100 mls/hr IV . Q10H [facility]ME Rx#:[id number] Oral 1200 Output: Oral Regurgitation 250 Other: # Voids 3 2 # Bowel Movements 5 3 Gen: This is a thin 62-year-old female. She is sitting up in bed and appears to be comfortable and in no acute distress. HEENT: Head is atraumatic, normocephalic. Pupils equal, round. Sclerae is anicteric. NECK: Supple. No JVD. No lymphadenopathy. No thyromegaly. LUNGS: Clear to auscultation. No wheezes or rhonchi. No intercostal retractions. HEART: Regular rate and rhythm. No murmur. ABDOMEN: Soft. Bowel sounds are present. No masses. No tenderness. No hepatosplenomegaly. EXTREMITIES: No pedal edema. No calf tenderness. Dorsalis pedis +2 bilaterally. NEUROLOGICAL: Patient is awake, alert and oriented x3. Cranial nerves 2 through 12 are grossly intact. Results CBC & Chem 7: 04/06/18 08:20 04/06/18 08:20 Labs: Abnormal Lab Results - Last 24 Hours (Table) 04/05/18 04/05/18 04/05/18 Range/Units 11:32 11:32 11:55 RBC (3.80-5.40) m/uL Hgb (11.4-16.0) gm/dL Hct (34.0-46.0) % MCV (80.0-100.0) fL RDW 18.7 H (11.5-15.5) % Monocytes # (Manual) 1.20 H (0-1.0) k/uL Sodium 128 L (137-145) mmol/L Potassium (3.5-5.1) mmol/L Chloride 95 L (98-107) mmol/L Carbon Dioxide 20 L (22-30) mmol/L BUN 34 H (7-17) mg/dL Creatinine 1.48 H (0.52-1.04) mg/dL Glucose 134 H (74-99) mg/dL Calcium (8.4-10.2) mg/dL Total Protein 5.5 L (6.3-8.2) g/dL Albumin 2.9 L (3.5-5.0) g/dL Urine Appearance (Clear) Urine Protein (Negative) Urine Ketones (Negative) Urine Blood (Negative) Ur Leukocyte Esterase (Negative) Urine WBC (0-5) /hpf Ur Squamous Epith Cells (0-4) /hpf Urine Bacteria (None) /hpf Hyaline Casts (0-2) /lpf Urine Mucus (None) /hpf Stool Occult Blood Positive H (Negative) Stool Lactoferrin (NEGATIVE) 04/05/18 04/05/18 04/06/18 Range/Units 11:55 21:40 08:20 RBC 3.23 L (3.80-5.40) m/uL Hgb 11.3 L (11.4-16.0) gm/dL Hct 32.3 L (34.0-46.0) % MCV 100.1 H (80.0-100.0) fL RDW 18.8 H (11.5-15.5) % Monocytes # (Manual) (0-1.0) k/uL Sodium (137-145) mmol/L Potassium (3.5-5.1) mmol/L Chloride (98-107) mmol/L Carbon Dioxide (22-30) mmol/L BUN (7-17) mg/dL Creatinine (0.52-1.04) mg/dL Glucose (74-99) mg/dL Calcium (8.4-10.2) mg/dL Total Protein (6.3-8.2) g/dL Albumin (3.5-5.0) g/dL Urine Appearance Cloudy H (Clear) Urine Protein 2+ H (Negative) Urine Ketones 1+ H (Negative) Urine Blood Small H (Negative) Ur Leukocyte Esterase Large H (Negative) Urine WBC 12 H (0-5) /hpf Ur Squamous Epith Cells 5 H (0-4) /hpf Urine Bacteria Rare H (None) /hpf Hyaline Casts 68 H (0-2) /lpf Urine Mucus Few H (None) /hpf Stool Occult Blood (Negative) Stool Lactoferrin POSITIVE H (NEGATIVE) 04/06/18 Range/Units 08:20 RBC (3.80-5.40) m/uL Hgb (11.4-16.0) gm/dL Hct (34.0-46.0) % MCV (80.0-100.0) fL RDW (11.5-15.5) % Monocytes # (Manual) (0-1.0) k/uL Sodium 129 L (137-145) mmol/L Potassium 3.2 L (3.5-5.1) mmol/L Chloride (98-107) mmol/L Carbon Dioxide 17 L (22-30) mmol/L BUN 38 H (7-17) mg/dL Creatinine 1.15 H (0.52-1.04) mg/dL Glucose 106 H (74-99) mg/dL Calcium 8.2 L (8.4-10.2) mg/dL Total Protein 4.4 L (6.3-8.2) g/dL Albumin 2.2 L (3.5-5.0) g/dL Urine Appearance (Clear) Urine Protein (Negative) Urine Ketones (Negative) Urine Blood (Negative) Ur Leukocyte Esterase (Negative) Urine WBC (0-5) /hpf Ur Squamous Epith Cells (0-4) /hpf Urine Bacteria (None) /hpf Hyaline Casts (0-2) /lpf Urine Mucus (None) /hpf Stool Occult Blood (Negative) Stool Lactoferrin (NEGATIVE) Microbiology - Last 24 Hours (Table) 04/05/18 21:40 Urine Culture - Preliminary Urine,Voided 04/05/18 11:55 Stool Culture - Preliminary Stool Thrombosis Risk Factor Assmnt - DVT/VTE Prophylaxis DVT/VTE Prophylaxis: Pharmacologic Prophylaxis ordered - Choose All That Apply Each Factor Represents 1 point: Age 41-60 years Each Risk Factor Represents 2 Points: Malignancy Thrombosis Risk Factor Assessment Total Risk Factor Score: 3 Thrombosis Risk Factor Assessment Level: Moderate Risk Assessment and Plan Plan: 1. Acute kidney injury and dehydration secondary to nausea, vomiting and diarrhea. Patient is status post 2 L of IV fluid currently on 100 mL per hour. Continue Imodium for diarrhea, Zofran for nausea. Consult with nephrology. 2. History of colon cancer status post right colectomy and chemotherapy. Consult with Dr. James. Patient has been on Xeloda. 3. History of breast cancer status post lumpectomy and radiation. Continue tamoxifen. 4. Nausea, vomiting, diarrhea secondary to chemotherapy. Consult with Dr. James. Continue IV fluids, Questran, Imodium. 5. Hypertension. Continue lisinopril 10 mg daily will be resumed. 6. Acute urinary tract infection treated with doxycycline as an outpatient. Antibiotics will be switched to ceftriaxone until cultures returned. 7. Hyponatremia secondary to dehydration. Continue IV fluids. 8. DVT prophylaxis. Lovenox daily. 9. GI prophylaxis. Protonix. Patient will be admitted to the hospital for a minimum of 2 night stay. Discharge plan: Return home Impression and plan of care have been directed as dictated by the signing physician. Opal Moreno nurse practitioner acting as scribe for signing physician.
[2018-04-06] MEDS: PANTOPRAZOLE 40 MG/10 ML VIAL IVP SCH (12:42)
[2018-04-06] MEDS ORDERED: SODIUM CHLORIDE 0.9% 1,000 ML with POTASSIUM CHLORIDE 20 MEQ IV SCH ×2 (12:45)
[2018-04-06] MEDS ORDERED: DIPHENOX-ATROP 2.5-0.025 MG 1 EACH TAB PO SCH (13:00)
[2018-04-06] MEDS ORDERED: DIPHENOX-ATROP 2.5-0.025 MG 1 EACH TAB PO PRN (13:00)
[2018-04-06] MEDS: MULTIVITAMINS, THERA 1 EACH TAB PO SCH (13:16)
[2018-04-06] MEDS: CHOLECALCIFEROL 1,000 UNIT TAB PO SCH (13:16)
[2018-04-06] MEDS: CYANOCOBALAMIN 500 MCG TAB PO SCH (13:16)
[2018-04-06] MEDS: LISINOPRIL 10 MG TAB PO SCH (13:22)
[2018-04-06] MEDS: MAG HYDROX/AL HYDROX/SIMETH 30 ML, LIDOCAINE VISCOUS 30 ML, diphenhydrAMINE ELIXIR 75 M... PO SCH ×12 (13:23→22:26)
[2018-04-06] MEDS: HYDROCORTISONE 1% CREAM 454 GM JAR TOPICAL SCH ×3 (13:23→21:16)
[2018-04-06] MEDS: PETROLATUM, WHITE OINT 50 GM TUBE TOPICAL SCH ×3 (13:23→21:16)
--- NOTE | 2018-04-06 13:31 | P.CONS ---
History of Present Illness - Reason for Consult Consult date: 04/06/18 on treatment for colon cancer, chemoprophylaxis for breast cancer Requesting physician: Opal Moreno - Chief Complaint intractable N,V,D - History of Present Illness Carito Friend is a very pleasant female with 2 malignancies who is otherwise healthy. 06/23/17 she had routine mammo, noted to have 2 masses on the left, confirmatory imaging was done on 06/26/17, revealing large area of pleomorphic calcification in the upper central right breast about 10.5 cm from the nipple and multiple foci of pleomorphic microcalcifications in the upper central and outer breast on the left, US of bilateral breasts was felt to be overall benign other then the right breast, focal area of concern in the retro- areolar region. Bilateral stereotactic core biopsies on 07/16/17 showed fibrocystic changes on the right and focal atypical lobular hyperplasia on the left, she proceeded to left breast biopsy with needle localization on 08/12/17. Path positive for low-grade DCIS, 7 mm by direct measurement, less than 1 mm from the inked margin, strongly ER/IA positive. She was treated with XRT, completed on 10/30/17 and then started tamoxifen. She had an elective colonoscopy on 12/18/17 revealing a partially obstructing lesion in the mid ascending colons, beyond which the scope could not be passed, path positive for adenocarcinoma. She had a rt hemicolectomy on 01/06/18, final path 4 cm, grade II, T3 tumor with 0/23 nodes positive. Oncotype colon revealed a score of 22, with a 14% chance of 3 year recurrence and 5 % reduction with 5FU/LV and 7% with 5FU/Oxali. After review of options patient decided to take Xeloda. She started 02/23/17, and is s/p 2 cycles. She was seen in the office for follow-up ate last week. Her symptoms were mild to moderate,she was trying to treat, told if persistent or progressive to go to ER. She had increased oral irritation, progressive soreness of the hands and feet with moderate to severe redness and drying with few cracks, diarrhea progressed to grade 3-4, watery bowel movements about every 15 minutes, patient is having to wear a brief as she is unable to control. Patient's appetite is reduced due to nausea, few episodes of vomiting. She denies fevers, painful swallowing, indigestion, heartburn, difficulty in breathing, cough, she has mild abdominal discomfort which is generalized, mild perirectal irritation, denies visible blood in the stool but, stool was positive for occult. The skin on her hands and feet is a little less irritated today. Review of Systems 14 point review of systems is negative except as stated in HPI Past Medical History Past Medical History: Cancer, GERD/Reflux, Hypertension Additional Past Medical History / Comment(s): LT BREAST CANCER, colon cancer stage II status post right colectomy History of Any Multi-Drug Resistant Organisms: None Reported Past Surgical History: No Surgical Hx Reported Additional Past Surgical History / Comment(s): LT BREAST LUMPECTOMY-RADIATION Past Anesthesia/Blood Transfusion Reactions: No Reported Reaction Past Psychological History: No Psychological Hx Reported Smoking Status: Former smoker Past Alcohol Use History: None Reported Additional Past Alcohol Use History / Comment(s): Patient was a smoker and quit in December 2017. She denies any alcohol use. Patient lives alone, . Past Drug Use History: None Reported - Past Family History Mother Family Medical History: No Reported History Additional Family Medical History / Comment(s): Mother is in her 80s with history of COPD and dementia. Father Additional Family Medical History / Comment(s): Father is in his 80s with history of atrial fibrillation. Sister(s) Additional Family Medical History / Comment(s): Patient has 1 sister with no major medical problems. Patient does not have any brothers. Patient has 2 daughters with no major medical problems. Medications and Allergies Home Medications Medication Instructions Recorded Confirmed Type Aspirin [Adult Low Dose Aspirin EC] 81 mg PO DAILY 07/10/17 04/05/18 History Cholecalciferol (Vitamin D3) 2,000 unit PO DAILY 07/10/17 04/05/18 History [Vitamin D3] Cyanocobalamin [Vitamin B-12] 500 mcg PO DAILY 07/10/17 04/05/18 History Lisinopril [Zestril] 10 mg PO DAILY 07/10/17 04/05/18 History Multivitamins, Thera [Multivitamin 1 tab PO DAILY 07/10/17 04/05/18 History (formulary)] Tamoxifen Citrate 20 mg PO DAILY 12/16/17 04/05/18 History Biotin 5 mg PO DAILY 04/05/18 04/05/18 History Capecitabine [Xeloda] 750 mg PO BID 04/05/18 04/05/18 History Doxycycline Hyclate [Vibramycin] 100 mg PO BID 04/05/18 04/05/18 History Ferrous Sulfate [Feosol] 325 mg PO DAILY 04/05/18 04/05/18 History Loperamide [Imodium] 2 mg PO QID PRN 04/05/18 04/05/18 History Prochlorperazine [Compazine] 10 mg PO Q6H PRN 04/05/18 04/05/18 History Allergies Allergy/AdvReac Type Severity Reaction Status Date / Time No Known Allergies Allergy Verified 04/05/18 11:30 Physical Exam Vitals: Vital Signs Temp Pulse Pulse Resp BP BP Pulse Ox 04/06/18 11:02 97.8 F 104 H 18 142/67 99 04/06/18 08:00 109 H 04/06/18 07:44 98.0 F 109 H 15 112/62 97 04/06/18 05:00 97.6 F 103 H 18 133/73 97 04/05/18 23:30 102 H 17 04/05/18 20:53 97.6 F 102 H 17 146/78 100 04/05/18 16:51 97.1 F L 101 H 18 135/84 100 04/05/18 15:28 97.1 F L 99 18 125/94 100 04/05/18 13:19 108 H 100 04/05/18 12:44 101 H 99 Intake and Output 04/05/18 04/06/18 04/06/18 22:59 06:59 14:59 Intake Total 1600 Output Total 250 Balance 1350 Intake: Intake, IV Titration 400 Amount Sodium Chloride 0.9% 1, 400 000 ml @ 100 mls/hr IV . Q10H [facility] Rx#:[id number] Oral 1200 Output: Oral Regurgitation 250 Other: # Voids 3 2 # Bowel Movements 5 3 - Constitutional General appearance: average body habitus, cooperative, no acute distress - EENT ulcerations noted on tongue, bilaterally, tongue is smooth, reddened Eyes: anicteric sclerae, EOMI ENT: no hard of hearing, hearing grossly normal, no NA/AT, no other, no pharyngeal erythema, no thrush, no tonsillar exudates, no tonsillar swelling - Neck Neck: no lymphadenopathy - Respiratory Respiratory: bilateral: CTA - Cardiovascular Rhythm: regular Heart sounds: normal: S1, S2 Abnormal Heart Sounds: no systolic murmur, no diastolic murmur, no rub, no S3 Gallop, no S4 Gallop, no click, no other leg Peripheral Edema: bilateral: None - Gastrointestinal slightly hyperactive BS, mild generalized tenderness with deeper palpation, no mass, organomegaly General gastrointestinal: no absent bowel sounds, no decreased bowel sounds, no distended, no hepatomegaly, no hyperactive bowel sounds, normal bowel sounds, no organomegaly, no rigid, no scaphoid, soft, no splenomegaly, tenderness, no umbilical hernia, no ventral hernia - Integumentary Grade 2 PPE on hands, feet 0-1 - Neurologic Neurologic: CNII-XII intact - Musculoskeletal Musculoskeletal: strength equal bilaterally - Psychiatric Psychiatric: A&O x's 3, appropriate affect, intact judgment & insight Results CBC & Chem 7: 04/06/18 08:20 04/06/18 08:20 Labs: Abnormal Lab Results - Last 24 Hours (Table) 04/05/18 04/05/18 04/05/18 Range/Units 11:32 11:55 11:55 RBC (3.80-5.40) m/uL Hgb (11.4-16.0) gm/dL Hct (34.0-46.0) % MCV (80.0-100.0) fL RDW (11.5-15.5) % Monocytes # (Manual) 1.20 H (0-1.0) k/uL Sodium (137-145) mmol/L Potassium (3.5-5.1) mmol/L Carbon Dioxide (22-30) mmol/L BUN (7-17) mg/dL Creatinine (0.52-1.04) mg/dL Glucose (74-99) mg/dL Calcium (8.4-10.2) mg/dL Total Protein (6.3-8.2) g/dL Albumin (3.5-5.0) g/dL Urine Appearance (Clear) Urine Protein (Negative) Urine Ketones (Negative) Urine Blood (Negative) Ur Leukocyte Esterase (Negative) Urine WBC (0-5) /hpf Ur Squamous Epith Cells (0-4) /hpf Urine Bacteria (None) /hpf Hyaline Casts (0-2) /lpf Urine Mucus (None) /hpf Stool Occult Blood Positive H (Negative) Stool Lactoferrin POSITIVE H (NEGATIVE) 04/05/18 04/06/18 04/06/18 Range/Units 21:40 08:20 08:20 RBC 3.23 L (3.80-5.40) m/uL Hgb 11.3 L (11.4-16.0) gm/dL Hct 32.3 L (34.0-46.0) % MCV 100.1 H (80.0-100.0) fL RDW 18.8 H (11.5-15.5) % Monocytes # (Manual) 2.05 H (0-1.0) k/uL Sodium 129 L (137-145) mmol/L Potassium 3.2 L (3.5-5.1) mmol/L Carbon Dioxide 17 L (22-30) mmol/L BUN 38 H (7-17) mg/dL Creatinine 1.15 H (0.52-1.04) mg/dL Glucose 106 H (74-99) mg/dL Calcium 8.2 L (8.4-10.2) mg/dL Total Protein 4.4 L (6.3-8.2) g/dL Albumin 2.2 L (3.5-5.0) g/dL Urine Appearance Cloudy H (Clear) Urine Protein 2+ H (Negative) Urine Ketones 1+ H (Negative) Urine Blood Small H (Negative) Ur Leukocyte Esterase Large H (Negative) Urine WBC 12 H (0-5) /hpf Ur Squamous Epith Cells 5 H (0-4) /hpf Urine Bacteria Rare H (None) /hpf Hyaline Casts 68 H (0-2) /lpf Urine Mucus Few H (None) /hpf Stool Occult Blood (Negative) Stool Lactoferrin (NEGATIVE) Microbiology - Last 24 Hours (Table) 04/05/18 21:40 Urine Culture - Preliminary Urine,Voided 04/05/18 11:55 Stool Culture - Preliminary Stool Abdominal x-ray: report reviewed Assessment and Plan (1) Drug-induced diarrhea Narrative/Plan: Cont IV fluids, added potassium. Clear liquids for now, diet will be advanced based on pt symptoms C-diff negative. Pt on imodium, had trouble tolerating questran so added lomotil. Added probiotic Current Visit: Yes Status: Acute Priority: High Code(s): K52.1 - TOXIC GASTROENTERITIS AND COLITIS SNOMED Code(s): 700146798 (2) Drug-induced mucositis Narrative/Plan: Kools solution and salt and soda Current Visit: Yes Status: Acute Priority: High Code(s): K12.32 - ORAL MUCOSITIS (ULCERATIVE) DUE TO OTHER DRUGS SNOMED Code(s): 573149710 (3) Palmar plantar erythrodysaesthesia due to cytotoxic therapy Narrative/Plan: Aquaphor with topical steroid Current Visit: Yes Status: Acute Priority: High Code(s): L27.1 - LOC SKIN ERUPTION DUE TO DRUGS AND MEDS TAKEN INTERNALLY; T45.1X5A - ADVERSE EFFECT OF ANTINEOPLASTIC AND IMMUNOSUP DRUGS, INIT SNOMED Code(s): 819821481 (4) Breast cancer Narrative/Plan: Cont tamoxifen Current Visit: No Status: Chronic Priority: Medium Code(s): C50.919 - MALIGNANT NEOPLASM OF UNSP SITE OF UNSPECIFIED FEMALE BREAST SNOMED Code(s): 963747567 (5) Colon cancer Narrative/Plan: Pt is s/p 2nd 14 day cycle of Xeloda with drug toxicities diarrhea, mucositis and PPE. Drug will be held until resolution of SE to grade 1. Dose will be reduced for cycle 3. Typically, it can take at least 3-5 days on discontinuation of xeloda for SE to resolve. Supportive treatments ordered Current Visit: Yes Status: Acute Priority: High Code(s): C18.9 - MALIGNANT NEOPLASM OF COLON, UNSPECIFIED SNOMED Code(s): 550032953 (6) Dehydration Narrative/Plan: IVF and clear liquids ordered for now, K+ added to IVF. Current Visit: Yes Status: Acute Priority: High Code(s): E86.0 - DEHYDRATION SNOMED Code(s): 32593020 (7) Electrolyte depletion Current Visit: Yes Status: Acute Code(s): E87.8 - OTH DISORDERS OF ELECTROLYTE AND FLUID BALANCE, NEC SNOMED Code(s): 00820869
[2018-04-06] MEDS: DIPHENOX-ATROP 2.5-0.025 MG 1 EACH TAB PO SCH ×2 (13:49→18:01)
[2018-04-06] MEDS: 0.9% NACL WITH KCL 20 MEQ/L 1,000 ML IV SCH ×2 (13:49→22:27)
[2018-04-06] MEDS: LACTATED RINGERS 1,000 ML IV SCH (18:01)
--- NOTE | 2018-04-06 23:51 | CONS ---
CONSULTATION REASON FOR CONSULT: Renal failure, hyponatremia. HISTORY OF PRESENT ILLNESS: The patient is a 62-year-old female who was admitted to the hospital with complaints of nausea, vomiting and diarrhea after recent chemotherapy. Patient was recently diagnosed with colon cancer and is status post right colectomy in December. This is her second round of chemotherapy. Patient denies any prior history of kidney diseases. Her serum creatinine was 1.4. It is down to 1.15. Patient is maintained on IV fluids. She also stated that she has been voiding much more than previously. PAST MEDICAL HISTORY: 1. Colon cancer. 2. Gastroesophageal reflux disease. 3. Hypertension. 4. History of left breast cancer. PAST SURGICAL HISTORY: 1. Left breast lumpectomy. 2. Radiation therapy. 3. Right colectomy. SOCIAL HISTORY: Patient is a former smoker. No history of drug abuse or alcohol abuse. MEDICATIONS: Medications prior to admission included: 1. Aspirin. 2. Vitamin D3. 3. Zestril. 4. Xeloda. 5. Biotene. 6. Tamoxifen. 7. Vibramycin. 8. Iron. 9. Imodium. 10.Compazine. ALLERGIES: NONE. REVIEW OF SYSTEMS: As per HPI. Other systems negative. PHYSICAL EXAMINATION: Patient is comfortable, awake, alert, oriented x3. She is not in any acute distress. Blood pressure is 142/67, heart rate 104 per minute. Patient is afebrile. EXAMINATION OF THE HEART: S1 and S2. EXAMINATION OF LUNGS: Bilateral breath sounds are heard. ABDOMEN: Soft, non-tender. Examination of lower extremities shows no evidence of edema. [employer] exam is grossly intact. LABS: Sodium 129, potassium 3.2, BUN 38, serum creatinine 1.15. UA shows 2+ protein, small ketone, blood small, bacteria rare, WBCs 12. C difficile toxin was negative. ASSESSMENT: 1. Acute kidney injury, prerenal, currently significantly improved with IV hydration. 2. Pyuria. Doubt significant urinary tract infection. However, patient does have 2+ protein. This will need to be repeated to rule out any underlying GN. 3. Hyponatremia which was mainly hypovolemic, currently improving with IV normal saline, which I will continue. 4. Hypokalemia associated with gastrointestinal fluid loss. Continue to replace. 5. Non-gap metabolic acidosis secondary to diarrhea and gastrointestinal fluid loss. Will continue with the fluids and repeat labs in a.m. 6. History of colon cancer, status post chemotherapy. PLAN: Continue with aggressive IV hydration. Avoid NSAIDs. Hold off on HOLDEN inhibitors, particularly if blood pressure remains low. Continue with empiric antibiotics. Thank you for this consultation. Will continue to follow the patient with you during her hospitalization. MMODL / IJN: [id number] /
[2018-04-07] MEDS: LACTATED RINGERS 1,000 ML IV SCH ×3 (00:05→23:29)
[2018-04-07] MEDS: DIPHENOX-ATROP 2.5-0.025 MG 1 EACH TAB PO SCH ×4 (00:05→17:45)
[2018-04-07] MEDS: LOPERAMIDE 2 MG CAP PO PRN ×4 (03:17→21:19)
[2018-04-07] MEDS: ONDANSETRON 4 MG/2 ML VIAL IVP PRN ×4 (03:18→21:19)
[2018-04-07] MEDS: 0.9% NACL WITH KCL 20 MEQ/L 1,000 ML IV SCH (07:24)
[2018-04-07] MEDS: PANTOPRAZOLE 40 MG/10 ML VIAL IVP SCH (08:56)
[2018-04-07] MEDS: CHOLESTYRAMINE (WITH SUGAR) 4 GM PACKET PO SCH ×3 (08:59→17:45)
[2018-04-07] MEDS: TAMOXIFEN 10 MG TAB PO SCH (09:00)
[2018-04-07] MEDS: ASPIRIN 81 MG PO SCH (09:00)
[2018-04-07] MEDS: FERROUS SULFATE 325 MG TAB PO SCH (09:00)
[2018-04-07] MEDS: ENOXAPARIN 40 MG/0.4 ML SYRINGE SQ SCH (09:00)
[2018-04-07] MEDS: LISINOPRIL 10 MG TAB PO SCH (09:00)
[2018-04-07] MEDS: MAG HYDROX/AL HYDROX/SIMETH 30 ML, LIDOCAINE VISCOUS 30 ML, diphenhydrAMINE ELIXIR 75 M... PO SCH ×12 (09:00→21:56)
[2018-04-07] MEDS: PETROLATUM, WHITE OINT 50 GM TUBE TOPICAL SCH ×4 (09:01→21:56)
[2018-04-07] MEDS: HYDROCORTISONE 1% CREAM 454 GM JAR TOPICAL SCH ×4 (09:01→21:56)
[2018-04-07 10:24] LABS: Calcium 8.2 mg/dL (8.4-10.2); Potassium 2.8 mmol/L (3.5-5.1)
[2018-04-07] MEDS: CYANOCOBALAMIN 500 MCG TAB PO SCH (11:55)
[2018-04-07] MEDS: CHOLECALCIFEROL 1,000 UNIT TAB PO SCH (11:55)
[2018-04-07] MEDS: MULTIVITAMINS, THERA 1 EACH TAB PO SCH (11:55)
--- NOTE | 2018-04-07 14:51 | P.PN ---
Subjective Progress Note Date: 04/07/18 This is a 62-year-old female patient of Dr. Asif with past medical history of hypertension, breast cancer, colon cancer. Regarding colon cancer, patient underwent a right colectomy done with Dr. Kulkarni on 12/31/2017, she has now completed her second round of chemotherapy and developed severe diarrhea, vomiting and couldn't keep anything down. She has had loose diarrhea almost every half hour up to 20 times per day. She denies having any history of DVT since diagnosed with cancer. She has had weight loss over the past year both intentional and from the colon cancer. She states she saw Dr. James on Thursday and there is concern that it could be related to a urinary tract infection and she was started on doxycycline. Patient tried taking Imodium without any improvement of her loose stools. She is currently on Xeloda orally twice daily for colon cancer and tamoxifen 20 mg daily for breast cancer. She is status post left breast lumpectomy and radiation treatment. Patient came into [facility] emergency center for evaluation. Patient was afebrile, heart rate in the low 100s. WBD, hemoglobin and platelets within normal limits. Sodium 128, potassium 3.9, chloride 95, CO2 20 , BUN 34 and creatinine 1.48, blood sugar 134. Patient denies history of diabetes. Liver function tests within normal limits, albumin 2.9. Stool for occult blood and WBC positive. C. difficile toxin negative. Urinalysis was cloudy, leukoesterase large, nitrate negative, bacteria rare, squamous cell 5, hyalin casts 68. Urine and stool cultures in progress. KUB reveals no evidence of bowel obstruction or free intraperitoneal air. Generalized colonic air-fluid levels suggest colonic ileus or liquid stool related to colitis or enteritis 04/07: Patient is followed by nephrology and oncology. She states she is finally feeling improved from yesterday. Case discussed with Dr. James and he recommends monitoring for another day and have not significantly improved, consider nothing by mouth and TPN for bowel rest. No antibiotics are recommended at this time. She has been afebrile, heart rate running in the 70s and 80s, blood pressure 103/63 and pulse ox 99% on room air. Sodium is up to 120, potassium 2.8, chloride 105 and CO2 18, BUN 26 and creatinine 0.97. Patient is currently on a clear liquid diet. Review of Systems All systems: negative Constitutional: Reports fatigue, Reports poor appetite, Reports weight loss, Denies anorexia, Denies chills, Denies fever, Denies weakness Eyes: denies blurred vision, denies pain Ears, nose, mouth and throat: Denies dysphagia, Denies headache, Denies hoarseness, Denies sore throat, Denies vertigo Cardiovascular: Denies chest pain, Denies dyspnea on exertion, Denies edema, Denies leg edema, Denies lightheadedness, Denies shortness of breath, Denies syncope Respiratory: Denies cough, Denies cough with sputum, Denies dyspnea, Denies excessive sputum, Denies hemoptysis, Denies home oxygen, Denies wheezing Gastrointestinal: Reports abdominal pain, Reports diarrhea, Reports loss of appetite, Reports nausea, Reports vomiting Genitourinary: Denies dysuria, Denies hematuria Musculoskeletal: Denies frequent falls, Denies gait dysfunction, Denies myalgias Integumentary: Denies pruritus, Denies rash, Denies wounds Neurological: Denies aphasia, Denies change in mentation, Denies change in smell /taste, Denies gait dysfunction, Denies head injury, Denies headaches, Denies numbness, Denies seizures, Denies vertigo, Denies weakness Psychiatric: Denies anxiety, Denies depression Endocrine: Denies fatigue, Denies weight change Objective - Vital Signs Vital signs: Vital Signs Temp 97.5 F L 04/07/18 07:21 Pulse 85 04/07/18 07:21 Resp 16 04/07/18 07:21 BP 112/63 04/07/18 07:21 Pulse Ox 97 04/07/18 07:21 Intake & Output 04/06/18 04/07/18 04/07/18 18:59 06:59 18:59 Intake Total 800 2210 Balance 800 2210 Intake: Intake, IV Titration 800 1200 Amount 0.9% NaCl with KCl 20 Meq 800 /l 1,000 ml @ 100 mls/hr IV .Q10H [facility] Rx#: [id number] Lactated Ringers 1,000 ml 1200 @ 100 mls/hr IV .Q10H [facility] Rx#:[id number] Oral 1010 Other: # Voids 2 - Exam Gen: This is a thin 62-year-old female. She is sitting up in bed in no acute distress. HEENT: Head is atraumatic, normocephalic. Pupils equal, round. Sclerae is anicteric. NECK: Supple. No JVD. No lymphadenopathy. No thyromegaly. LUNGS: Clear to auscultation. No wheezes or rhonchi. No intercostal retractions. HEART: Regular rate and rhythm. No murmur. ABDOMEN: Soft. Bowel sounds are present. No masses. No tenderness. No hepatosplenomegaly. EXTREMITIES: No pedal edema. No calf tenderness. Dorsalis pedis +2 bilaterally. NEUROLOGICAL: Patient is awake, alert and oriented x3. Cranial nerves 2 through 12 are grossly intact. - Labs CBC & Chem 7: 04/06/18 08:20 04/07/18 09:56 Labs: Abnormal Lab Results - Last 24 Hours (Table) 04/06/18 04/06/18 Range/Units 08:20 08:20 RBC 3.23 L (3.80-5.40) m/uL Hgb 11.3 L (11.4-16.0) gm/dL Hct 32.3 L (34.0-46.0) % MCV 100.1 H (80.0-100.0) fL RDW 18.8 H (11.5-15.5) % Monocytes # (Manual) 2.05 H (0-1.0) k/uL Sodium 129 L (137-145) mmol/L Potassium 3.2 L (3.5-5.1) mmol/L Carbon Dioxide 17 L (22-30) mmol/L BUN 38 H (7-17) mg/dL Creatinine 1.15 H (0.52-1.04) mg/dL Glucose 106 H (74-99) mg/dL Calcium 8.2 L (8.4-10.2) mg/dL Total Protein 4.4 L (6.3-8.2) g/dL Albumin 2.2 L (3.5-5.0) g/dL Assessment and Plan Plan: 1. Acute kidney injury and dehydration secondary to nausea, vomiting and diarrhea. Patient is status post 2 L of IV fluid currently on 100 mL per hour. Continue Imodium for diarrhea, Zofran for nausea. Consult with nephrology. 2. History of colon cancer status post right colectomy and chemotherapy. Consult with Dr. James. Patient has been on Xeloda. 3. History of breast cancer status post lumpectomy and radiation. Continue tamoxifen. 4. Nausea, vomiting, diarrhea secondary to colitis from Xeloda. Consult with Dr. James. Continue IV fluids, Questran, Imodium. 5. Hypertension. Continue lisinopril 10 mg daily will be resumed. 6. Acute urinary tract infection treated with doxycycline as an outpatient. Antibiotics will be switched to ceftriaxone until cultures returned. 7. Hyponatremia secondary to dehydration. Continue IV fluids. 8. DVT prophylaxis. Lovenox daily. 9. GI prophylaxis. Protonix. Discharge plan: Return home Impression and plan of care have been directed as dictated by the signing physician. Opal Moreno nurse practitioner acting as scribe for signing physician.
--- NOTE | 2018-04-07 17:36 | P.PN ---
Subjective Progress Note Date: 04/07/18 Principal diagnosis: Diarrhea on Xeloda She feels the diarrhea has mildly improved, although still greater than 4-5 times overnight, could not tolerate Questran, emesis after Objective - Vital Signs Vital signs: Vital Signs Temp 97.5 F L 04/07/18 12:15 Pulse 78 04/07/18 12:15 Resp 16 04/07/18 12:15 BP 104/63 04/07/18 12:15 Pulse Ox 99 04/07/18 12:15 Intake & Output 04/06/18 04/07/18 04/07/18 18:59 06:59 18:59 Intake Total 800 2210 Balance 800 2210 Intake: Intake, IV Titration 800 1200 Amount 0.9% NaCl with KCl 20 Meq 800 /l 1,000 ml @ 100 mls/hr IV .Q10H [facility] Rx#: [id number] Lactated Ringers 1,000 ml 1200 @ 100 mls/hr IV .Q10H [facility] Rx#:[id number] Oral 1010 Other: # Voids 2 3 - Exam - Constitutional General appearance: average body habitus, cooperative, no acute distress - EENT ulcerations noted on tongue, bilaterally, tongue is smooth, reddened Eyes: anicteric sclerae, EOMI ENT: no hard of hearing, hearing grossly normal, no NA/AT, no other, no pharyngeal erythema, no thrush, no tonsillar exudates, no tonsillar swelling - Neck Neck: no lymphadenopathy - Respiratory Respiratory: bilateral: CTA - Cardiovascular Rhythm: regular Heart sounds: normal: S1, S2 Abnormal Heart Sounds: no systolic murmur, no diastolic murmur, no rub, no S3 Gallop, no S4 Gallop, no click, no other leg Peripheral Edema: bilateral: None - Gastrointestinal slightly hyperactive BS, mild generalized tenderness with deeper palpation, no mass, organomegaly General gastrointestinal: no absent bowel sounds, no decreased bowel sounds, no distended, no hepatomegaly, no hyperactive bowel sounds, normal bowel sounds, no organomegaly, no rigid, no scaphoid, soft, no splenomegaly, tenderness, no umbilical hernia, no ventral hernia - Integumentary Grade 2 PPE on hands, feet 0-1 - Neurologic Neurologic: CNII-XII intact - Musculoskeletal Musculoskeletal: strength equal bilaterally - Psychiatric Psychiatric: A&O x's 3, appropriate affect, intact judgment & insight - Labs CBC & Chem 7: 04/06/18 08:20 04/07/18 09:56 Labs: Abnormal Lab Results - Last 24 Hours (Table) 04/07/18 Range/Units 09:56 Sodium 130 L (137-145) mmol/L Potassium 2.8 L (3.5-5.1) mmol/L Carbon Dioxide 18 L (22-30) mmol/L BUN 26 H (7-17) mg/dL Calcium 8.2 L (8.4-10.2) mg/dL Assessment and Plan Plan: Assessment and Plan (1) Drug-induced diarrhea - Cont IV fluids, with added potassium. - Clear liquids for now, diet will be advanced based on pt symptoms - If no improvements tomorrow will add PPM or TPN for short interval and NPO to allow complete bowel rest, discussed with Dr. Garza - C-diff negative. 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 Drug will be held until resolution of SE to grade 1. Dose will be reduced for cycle 3. Typically, it can take at least 3-5 days on discontinuation of xeloda for SE to resolve. Supportive treatments ordered - Likely will need to switch therapy as not tolerating (6) Dehydration - IVF and clear liquids ordered for now, K+ added to IVF. (7) Electrolyte depletion - Potassium decreased more today 2.8, Check Mag, Check and supp both daily. May require more than the protocol, will recheck today - [facility] Physician Attestation: I have completed the fullhistory and physical and devloped the complete impression and plan and agree with above by Mia Colmenares NP, Dictated as a scribe
[2018-04-07 18:50] LABS: Albumin 2.1 g/dL (3.5-5.0); Calcium 8.5 mg/dL (8.4-10.2); Total Bilirubin 0.3 mg/dL (0.2-1.3); Total Protein 4.2 g/dL (6.3-8.2)
[2018-04-07 18:59] LABS: Potassium 2.7 mmol/L (3.5-5.1)
[2018-04-07] MEDS ORDERED: Potassium Replacement Protocol 1 EACH MISC MISCELLANE PRN ×2 (19:23→21:12)
[2018-04-07] MEDS: POTASSIUM CHLORIDE ER 20 MEQ TAB.ER PO SCH ×2 (21:55→23:31)
--- NOTE | 2018-04-07 23:29 | PN ---
PROGRESS NOTE Patient is seen for followup for acute kidney injury which was mainly prerenal. She is currently maintained on IV fluids. Renal function has improved significantly, with serum creatinine down to 0.87 from 1.48 on admission. Patient was also hyponatremic, which was mainly hypovolemic. Serum sodium has improved to 130. Diarrhea has slowed somewhat, although patient is still having quite frequent bowel movements. On examination this morning, blood pressure was 112/63, heart rate 85 per minute. She was afebrile. EXAMINATION OF THE HEART: S1 and S2. EXAMINATION OF LUNGS: Bilateral breath sounds are heard. ABDOMEN: Soft, non-tender. Examination of lower extremities shows no evidence of edema. [employer] exam is grossly intact. Labs show sodium 130, potassium 2.7, chloride 102, BUN of 21, serum creatinine 0.87. ASSESSMENT: 1. Acute kidney injury, prerenal, currently improved. 2. Hypokalemia secondary to gastrointestinal fluid loss, being replaced. 3. Hypovolemic hyponatremia, slowly improving, maintained on normal saline. 4. Non-gap metabolic acidosis secondary to diarrhea and gastrointestinal fluid loss, somewhat improved. 5. Hypertension. Patient is maintained on lisinopril. Her blood pressure is on the lower side. I will hold off on the lisinopril for now, and we can resume if blood pressure is elevated. 6. Diarrhea post chemotherapy, slowly improving. C difficile toxin is negative. 7. Colon cancer, status post right colectomy and maintained on chemotherapy. 8. Pyuria. Urine culture is in progress. PLAN: Replace potassium. Continue current IV fluids. Discontinue lisinopril, as blood pressure remains low. Repeat labs in a.m. MMODL / IJN: [id number] /
[2018-04-08] MEDS: DIPHENOX-ATROP 2.5-0.025 MG 1 EACH TAB PO SCH ×5 (01:26→23:30)
[2018-04-08] MEDS: POTASSIUM CHLORIDE ER 20 MEQ TAB.ER PO SCH ×7 (01:26→23:30)
[2018-04-08 02:02] LABS: Potassium 2.7 mmol/L (3.5-5.1)
[2018-04-08 02:17] LABS: Magnesium 2.1 mg/dL (1.6-2.3)
[2018-04-08] MEDS: ONDANSETRON 4 MG/2 ML VIAL IVP PRN ×3 (03:33→18:18)
[2018-04-08] MEDS: LOPERAMIDE 2 MG CAP PO PRN ×2 (03:33→09:34)
[2018-04-08] MEDS ORDERED: Potassium Replacement Protocol 1 EACH MISC MISCELLANE PRN (03:36)
[2018-04-08 09:02] LABS: Anisocytosis Slight; Basophils % (A) 0 %; Eosinophils # (A) 0.1 k/uL (0-0.7); Eosinophils % (A) 1 %; HCT 32.5 % (34.0-46.0); HGB 10.8 gm/dL (11.4-16.0); Lymphocytes # (A) 1.1 k/uL (1.0-4.8); Lymphocytes % (A) 16 %; MCHC 33.4 g/dL (31.0-37.0); MCV 101.6 fL (80.0-100.0); Macrocytosis Moderate; Mean Platelet Volume 6.5; Monocytes # (A) 0.4 k/uL (0-1.0); Monocytes % (A) 5 %; Neutrophils # (A) 5.2 k/uL (1.3-7.7); Neutrophils % (A) 75 %; Platelet Count 314 k/uL (150-450); RBC 3.19 m/uL (3.80-5.40); RDW 18.4 % (11.5-15.5); WBC 6.9 k/uL (3.8-10.6)
[2018-04-08 09:19] LABS: Albumin 2.1 g/dL (3.5-5.0); Calcium 8.9 mg/dL (8.4-10.2); Potassium 2.7 mmol/L (3.5-5.1); Total Bilirubin 0.5 mg/dL (0.2-1.3); Total Protein 4.2 g/dL (6.3-8.2)
[2018-04-08] MEDS: CHOLECALCIFEROL 1,000 UNIT TAB PO SCH (09:30)
[2018-04-08] MEDS: FERROUS SULFATE 325 MG TAB PO SCH (09:30)
[2018-04-08] MEDS: CYANOCOBALAMIN 500 MCG TAB PO SCH (09:30)
[2018-04-08] MEDS: HYDROCORTISONE 1% CREAM 454 GM JAR TOPICAL SCH ×4 (09:30→21:06)
[2018-04-08] MEDS: MULTIVITAMINS, THERA 1 EACH TAB PO SCH (09:30)
[2018-04-08] MEDS: ASPIRIN 81 MG PO SCH (09:31)
[2018-04-08] MEDS: LISINOPRIL 10 MG TAB PO SCH (09:31)
[2018-04-08] MEDS: PANTOPRAZOLE 40 MG TABLET PO SCH (09:31)
[2018-04-08] MEDS: CHOLESTYRAMINE (WITH SUGAR) 4 GM PACKET PO SCH ×3 (09:31→18:15)
[2018-04-08] MEDS: LACTATED RINGERS 1,000 ML IV SCH (09:31)
[2018-04-08] MEDS: ENOXAPARIN 40 MG/0.4 ML SYRINGE SQ SCH (09:32)
[2018-04-08] MEDS: TAMOXIFEN 10 MG TAB PO SCH (09:32)
[2018-04-08] MEDS: PETROLATUM, WHITE OINT 50 GM TUBE TOPICAL SCH ×4 (09:32→21:06)
[2018-04-08] MEDS: MAG HYDROX/AL HYDROX/SIMETH 30 ML, LIDOCAINE VISCOUS 30 ML, diphenhydrAMINE ELIXIR 75 M... PO SCH ×12 (09:36→21:07)
[2018-04-08 10:38] LABS: Poikilocytosis (M) Present
[2018-04-08] MEDS ORDERED: POTASSIUM CHLORIDE 20 MEQ in WATER FOR INJECTION 1 100ML.BAG IVPB STA (11:10)
--- NOTE | 2018-04-08 11:41 | P.PN ---
Subjective Progress Note Date: 04/08/18 This is a 62-year-old female patient of Dr. Asif with past medical history of hypertension, breast cancer, colon cancer. Regarding colon cancer, patient underwent a right colectomy done with Dr. Kulkarni on 12/31/2017, she has now completed her second round of chemotherapy and developed severe diarrhea, vomiting and couldn't keep anything down. She has had loose diarrhea almost every half hour up to 20 times per day. She denies having any history of DVT since diagnosed with cancer. She has had weight loss over the past year both intentional and from the colon cancer. She states she saw Dr. James on Thursday and there is concern that it could be related to a urinary tract infection and she was started on doxycycline. Patient tried taking Imodium without any improvement of her loose stools. She is currently on Xeloda orally twice daily for colon cancer and tamoxifen 20 mg daily for breast cancer. She is status post left breast lumpectomy and radiation treatment. Patient came into [facility] emergency center for evaluation. Patient was afebrile, heart rate in the low 100s. WBD, hemoglobin and platelets within normal limits. Sodium 128, potassium 3.9, chloride 95, CO2 20 , BUN 34 and creatinine 1.48, blood sugar 134. Patient denies history of diabetes. Liver function tests within normal limits, albumin 2.9. Stool for occult blood and WBC positive. C. difficile toxin negative. Urinalysis was cloudy, leukoesterase large, nitrate negative, bacteria rare, squamous cell 5, hyalin casts 68. Urine and stool cultures in progress. KUB reveals no evidence of bowel obstruction or free intraperitoneal air. Generalized colonic air-fluid levels suggest colonic ileus or liquid stool related to colitis or enteritis 04/07: Patient is followed by nephrology and oncology. She states she is finally feeling improved from yesterday. Case discussed with Dr. James and he recommends monitoring for another day and have not significantly improved, consider nothing by mouth and TPN for bowel rest. No antibiotics are recommended at this time. She has been afebrile, heart rate running in the 70s and 80s, blood pressure 103/63 and pulse ox 99% on room air. Sodium is up to 120, potassium 2.8, chloride 105 and CO2 18, BUN 26 and creatinine 0.97. Patient is currently on a clear liquid diet. 04/08: Patient states that she is feeling better from yesterday but continues to have stools every half to one hour. Her heart rate is improved today. She has had potassium replacement and repeat again today is only at 2.[address] Hickman is provided replacement orders for 140 mEq. Urine culture is positive for Anna only. She has been on ceftriaxone. Await further recommendations from oncology. She is currently eating very little and is on a clear liquid diet Review of Systems Constitutional: Reports fatigue, Reports poor appetite, Reports weight loss, Denies anorexia, Denies chills, Denies fever, Denies weakness Eyes: denies blurred vision, denies pain Ears, nose, mouth and throat: Denies dysphagia, Denies headache, Denies hoarseness, Denies sore throat, Denies vertigo Cardiovascular: Denies chest pain, Denies dyspnea on exertion, Denies edema, Denies leg edema, Denies lightheadedness, Denies shortness of breath, Denies syncope Respiratory: Denies cough, Denies cough with sputum, Denies dyspnea, Denies excessive sputum, Denies hemoptysis, Denies home oxygen, Denies wheezing Gastrointestinal: Reports abdominal pain, Reports diarrhea, Reports loss of appetite, Reports nausea, denies vomiting Genitourinary: Denies dysuria, Denies hematuria Musculoskeletal: Denies frequent falls, Denies gait dysfunction, Denies myalgias Integumentary: Denies pruritus, Denies rash, Denies wounds Neurological: Denies aphasia, Denies change in mentation, Denies change in smell /taste, Denies gait dysfunction, Denies head injury, Denies headaches, Denies numbness, Denies seizures, Denies vertigo, Denies weakness Psychiatric: Denies anxiety, Denies depression Endocrine: Denies fatigue, Denies weight change Objective - Vital Signs Vital signs: Vital Signs Temp 97.9 F 04/08/18 05:28 Pulse 76 04/08/18 05:28 Resp 16 04/08/18 05:28 BP 124/56 04/08/18 05:28 Pulse Ox 96 04/08/18 05:28 Intake & Output 04/07/18 04/08/18 04/08/18 18:59 06:59 18:59 Intake Total 2790 Balance 2790 Intake: Intake, IV Titration 600 Amount Lactated Ringers 1,000 ml 600 @ 100 mls/hr IV .Q10H [facility] Rx#:[id number] Oral 2190 Other: # Voids 3 2 # Bowel Movements 3 - Exam Gen: This is a thin 62-year-old female. She is sitting up in bed in no acute distress. No respiratory distress noted. HEENT: Head is atraumatic, normocephalic. Pupils equal, round. Sclerae is anicteric. NECK: Supple. No JVD. No lymphadenopathy. No thyromegaly. LUNGS: Clear to auscultation. No wheezes or rhonchi. No intercostal retractions. HEART: Regular rate and rhythm. No murmur. ABDOMEN: Soft. Bowel sounds are present. No masses. No tenderness. No hepatosplenomegaly. EXTREMITIES: No pedal edema. No calf tenderness. Dorsalis pedis +2 bilaterally. NEUROLOGICAL: Patient is awake, alert and oriented x3. Cranial nerves 2 through 12 are grossly intact. - Labs CBC & Chem 7: 04/08/18 08:02 04/08/18 08:02 Labs: Abnormal Lab Results - Last 24 Hours (Table) 04/07/18 04/08/18 04/08/18 Range/Units 18:12 01:44 08:02 RBC (3.80-5.40) m/uL Hgb (11.4-16.0) gm/dL Hct (34.0-46.0) % MCV (80.0-100.0) fL RDW (11.5-15.5) % Sodium 130 L 131 L (137-145) mmol/L Potassium 2.7 L* 2.7 L* 2.7 L* (3.5-5.1) mmol/L Carbon Dioxide 20 L 20 L (22-30) mmol/L BUN 21 H (7-17) mg/dL Total Protein 4.2 L 4.2 L (6.3-8.2) g/dL Albumin 2.1 L 2.1 L (3.5-5.0) g/dL 04/08/18 Range/Units 08:02 RBC 3.19 L (3.80-5.40) m/uL Hgb 10.8 L (11.4-16.0) gm/dL Hct 32.5 L (34.0-46.0) % MCV 101.6 H (80.0-100.0) fL RDW 18.4 H (11.5-15.5) % Sodium (137-145) mmol/L Potassium (3.5-5.1) mmol/L Carbon Dioxide (22-30) mmol/L BUN (7-17) mg/dL Total Protein (6.3-8.2) g/dL Albumin (3.5-5.0) g/dL Microbiology - Last 24 Hours (Table) 04/05/18 21:40 Urine Culture - Final Urine,Voided Anna albicans 04/05/18 11:55 Stool Culture - Preliminary Stool Assessment and Plan Plan: 1. Acute kidney injury and dehydration secondary to nausea, vomiting and diarrhea. Patient is status post 2 L of IV fluid currently on 100 mL per hour. Continue Imodium for diarrhea, Zofran for nausea. Consult with nephrology. 2. History of colon cancer status post right colectomy and chemotherapy. Consult with Dr. James. Patient has been on Xeloda. 3. History of breast cancer status post lumpectomy and radiation. Continue tamoxifen. 4. Nausea, vomiting, diarrhea secondary to colitis from Xeloda. Consult with Dr. James. Continue IV fluids, Questran, Imodium. 5. Hypertension. Continue lisinopril 10 mg daily will be resumed. 6. Acute urinary tract infection treated with doxycycline as an outpatient. Continue ceftriaxone. 7. Hyponatremia secondary to dehydration. Continue IV fluids. 8. DVT prophylaxis. Lovenox daily. 9. GI prophylaxis. Protonix. 10. Hypokalemia secondary to diarrhea. Replacement Discharge plan: Return home Impression and plan of care have been directed as dictated by the signing physician. Opal Moreno nurse practitioner acting as scribe for signing physician.
--- NOTE | 2018-04-08 13:16 | P.PN ---
Subjective Progress Note Date: 04/08/18 Principal diagnosis: Diarrhea on Xeloda She feels the diarrhea is every 20 minutes, unable to keep potassium greater than 3 after 120meq supp yesterday. We will place picc line, NPO, bowel rest, IV Supp and Start TPN oliverio Objective - Vital Signs Vital signs: Vital Signs Temp 97.5 F L 04/08/18 12:05 Pulse 72 04/08/18 12:05 Resp 16 04/08/18 12:05 BP 125/68 04/08/18 12:05 Pulse Ox 100 04/08/18 12:05 Intake & Output 04/07/18 04/08/18 04/08/18 18:59 06:59 18:59 Intake Total 2790 Balance 2790 Intake: Intake, IV Titration 600 Amount Lactated Ringers 1,000 ml 600 @ 100 mls/hr IV .Q10H [facility] Rx#:[id number] Oral 2190 Other: # Voids 3 2 # Bowel Movements 3 - Exam - Constitutional General appearance: average body habitus, cooperative, no acute distress - EENT ulcerations noted on tongue, bilaterally, tongue is smooth, reddened Eyes: anicteric sclerae, EOMI ENT: no hard of hearing, hearing grossly normal, no NA/AT, no other, no pharyngeal erythema, no thrush, no tonsillar exudates, no tonsillar swelling - Neck Neck: no lymphadenopathy - Respiratory Respiratory: bilateral: CTA - Cardiovascular Rhythm: regular Heart sounds: normal: S1, S2 Abnormal Heart Sounds: no systolic murmur, no diastolic murmur, no rub, no S3 Gallop, no S4 Gallop, no click, no other leg Peripheral Edema: bilateral: None - Gastrointestinal slightly hyperactive BS, mild generalized tenderness with deeper palpation, no mass, organomegaly General gastrointestinal: no absent bowel sounds, no decreased bowel sounds, no distended, no hepatomegaly, no hyperactive bowel sounds, normal bowel sounds, no organomegaly, no rigid, no scaphoid, soft, no splenomegaly, tenderness, no umbilical hernia, no ventral hernia - Integumentary Grade 2 PPE on hands, feet 0-1 - Neurologic Neurologic: CNII-XII intact - Musculoskeletal Musculoskeletal: strength equal bilaterally - Psychiatric Psychiatric: A&O x's 3, appropriate affect, intact judgment & insight - Labs CBC & Chem 7: 04/08/18 08:02 04/08/18 08:02 Labs: Abnormal Lab Results - Last 24 Hours (Table) 04/07/18 04/08/18 04/08/18 Range/Units 18:12 01:44 08:02 RBC (3.80-5.40) m/uL Hgb (11.4-16.0) gm/dL Hct (34.0-46.0) % MCV (80.0-100.0) fL RDW (11.5-15.5) % Sodium 130 L 131 L (137-145) mmol/L Potassium 2.7 L* 2.7 L* 2.7 L* (3.5-5.1) mmol/L Carbon Dioxide 20 L 20 L (22-30) mmol/L BUN 21 H (7-17) mg/dL Total Protein 4.2 L 4.2 L (6.3-8.2) g/dL Albumin 2.1 L 2.1 L (3.5-5.0) g/dL 04/08/18 Range/Units 08:02 RBC 3.19 L (3.80-5.40) m/uL Hgb 10.8 L (11.4-16.0) gm/dL Hct 32.5 L (34.0-46.0) % MCV 101.6 H (80.0-100.0) fL RDW 18.4 H (11.5-15.5) % Sodium (137-145) mmol/L Potassium (3.5-5.1) mmol/L Carbon Dioxide (22-30) mmol/L BUN (7-17) mg/dL Total Protein (6.3-8.2) g/dL Albumin (3.5-5.0) g/dL Microbiology - Last 24 Hours (Table) 04/05/18 21:40 Urine Culture - Final Urine,Voided Anna albicans 04/05/18 11:55 Stool Culture - Preliminary Stool Assessment and Plan Plan: Assessment and Plan (1) Drug-induced diarrhea - Cont IV fluids, with added potassium. - Clear liquids for now, diet will be advanced based on pt symptoms - If no improvements tomorrow will add PPM or TPN for short interval and NPO to allow complete bowel rest, discussed with Dr. Garza - C-diff negative. 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 Drug will be held until resolution of SE to grade 1. Dose will be reduced for cycle 3. Typically, it can take at least 3-5 days on discontinuation of xeloda for SE to resolve. Supportive treatments ordered - Likely will need to switch therapy as not tolerating (6) Dehydration - IVF and clear liquids ordered for now, K+ added to IVF. (7) Electrolyte depletion Severe Hypokalemia - Potassium decreased more today 2.7, despite 120meq supp 04/07/18 Check Mag, Check and supp both daily. May require more than the protocol, will recheck today - TMS (8) Moderate Protein Malnutrition from persistent Diarrhea and inability to absorb - Picc line today - TPN - NPO to allow bowel rest - Daily and close monitoring CMP, Mg, and Phos. Physician Attestation: I have completed the fullhistory and physical and devloped the complete impression and plan and agree with above by Mia Colmenares NP, Dictated as a scribe
[2018-04-08] MEDS: 0.9% NACL WITH KCL 20 MEQ/L 1,000 ML IV SCH (13:57)
[2018-04-08] MEDS ORDERED: POTASSIUM CHLORIDE 20 MEQ in WATER FOR INJECTION 1 100ML.BAG IVPB ONE (14:00)
[2018-04-08] MEDS ORDERED: MVI, ADULT NO.4 WITH VIT K 10 ML, TRACE (CONC-1ML/DOSE) 1 ML in AMINO ACID 5%-D15W+LYTE... IV SCH ×3 (18:00)
[2018-04-08 18:27] LABS: Ionized Calcium 5.9 mg/dL (4.5-5.3)
[2018-04-08 18:32] LABS: Phosphorus 2.4 mg/dL (2.5-4.5)
[2018-04-08 19:19] LABS: Albumin 1.9 g/dL (3.5-5.0); Calcium 8.6 mg/dL (8.4-10.2); Potassium 3.7 mmol/L (3.5-5.1); Total Bilirubin 0.4 mg/dL (0.2-1.3); Total Protein 3.9 g/dL (6.3-8.2)
[2018-04-08] MEDS: FAT EMULSION 20% 250 ML IV SCH (20:55)
[2018-04-08] MEDS: SODIUM BICARBONATE TAB 650 MG TAB PO SCH (21:06)
--- NOTE | 2018-04-08 23:12 | PN ---
PROGRESS NOTE Patient is seen for followup for acute kidney injury. Her renal function has improved significantly. The patient, however, remains hypokalemic. Diarrhea is somewhat better but still persists. PHYSICAL EXAMINATION: This morning blood pressure was 124/56, heart rate 76 per minute. Patient is afebrile. Examination of the heart S1, S2. Examination lungs bilateral breath sounds are heard. Abdomen is soft, nontender. Examination lower extremities shows no evidence of edema. LAB: Show sodium 130, potassium 3.7, BUN 14, serum creatinine 0.82. ASSESSMENT: 1. Hypokalemia secondary to gastrointestinal fluid loss, diarrhea and decreased oral intake. Will replace aggressively. Patient is magnesium replete. 2. Hyponatremia which was hypovolemic, improved. Sodium staying at 130-131. 3. Acute kidney injury, prerenal, currently improved. 4. Non-gap metabolic acidosis secondary to gastrointestinal fluid loss and diarrhea. I will add oral sodium bicarb. PLAN: Add oral sodium bicarb and replace potassium aggressively. MMODL / IJN: [id number] /
[2018-04-09] MEDS: INSULIN ASPART (NovoLOG) 100 UNIT/ML VIAL SQ SCH ×5 (00:08→23:28)
[2018-04-09] MEDS: ONDANSETRON 4 MG/2 ML VIAL IVP PRN ×2 (00:11→12:39)
[2018-04-09] MEDS: 0.9% NACL WITH KCL 20 MEQ/L 1,000 ML IV SCH ×3 (00:11→19:27)
[2018-04-09 00:15] LABS: Glucose,Whole Blood 109 mg/dL (75-99)
[2018-04-09] MEDS: LOPERAMIDE 2 MG CAP PO PRN ×4 (03:06→20:43)
[2018-04-09] MEDS: POTASSIUM CHLORIDE ER 20 MEQ TAB.ER PO SCH ×2 (03:07→12:38)
[2018-04-09] MEDS ORDERED: DIPHENOX-ATROP 2.5-0.025 MG 1 EACH TAB ONE (06:01)
[2018-04-09] MEDS ORDERED: ONDANSETRON 4 MG/2 ML VIAL ONE (06:01)
[2018-04-09] MEDS: DIPHENOX-ATROP 2.5-0.025 MG 1 EACH TAB PO SCH ×6 (07:48→23:27)
[2018-04-09] MEDS: FERROUS SULFATE 325 MG TAB PO SCH (08:11)
[2018-04-09] MEDS: SODIUM BICARBONATE TAB 650 MG TAB PO SCH ×2 (08:11→20:43)
[2018-04-09] MEDS: ASPIRIN 81 MG PO SCH (08:11)
[2018-04-09] MEDS: LISINOPRIL 10 MG TAB PO SCH (08:11)
[2018-04-09] MEDS: PANTOPRAZOLE 40 MG TABLET PO SCH (08:11)
[2018-04-09] MEDS: ENOXAPARIN 40 MG/0.4 ML SYRINGE SQ SCH (08:11)
[2018-04-09] MEDS: TAMOXIFEN 10 MG TAB PO SCH (08:11)
[2018-04-09] MEDS: MAG HYDROX/AL HYDROX/SIMETH 30 ML, LIDOCAINE VISCOUS 30 ML, diphenhydrAMINE ELIXIR 75 M... PO SCH ×12 (08:12→23:26)
[2018-04-09] MEDS: CHOLESTYRAMINE (WITH SUGAR) 4 GM PACKET PO SCH ×3 (08:12→19:16)
[2018-04-09] MEDS: PETROLATUM, WHITE OINT 50 GM TUBE TOPICAL SCH ×4 (08:13→23:25)
[2018-04-09] MEDS: HYDROCORTISONE 1% CREAM 454 GM JAR TOPICAL SCH ×4 (08:13→23:25)
[2018-04-09] MEDS: CHOLECALCIFEROL 1,000 UNIT TAB PO SCH (08:15)
[2018-04-09] MEDS: CYANOCOBALAMIN 500 MCG TAB PO SCH (08:15)
[2018-04-09 09:05] LABS: Potassium 4.3 mmol/L (3.5-5.1)
[2018-04-09 09:07] LABS: ALT 27 U/L (9-52); AST 11 U/L (14-36); Albumin 1.8 g/dL (3.5-5.0); Alkaline Phosphatase 43 U/L (38-126); Anion Gap 3 mmol/L; Blood Urea Nitrogen 11 mg/dL (7-17); Calcium 8.5 mg/dL (8.4-10.2); Carbon Dioxide 16 mmol/L (22-30); Chloride 115 mmol/L (98-107); Glucose 115 mg/dL (74-99); Magnesium 1.9 mg/dL (1.6-2.3); Phosphorus 1.6 mg/dL (2.5-4.5); Sodium 134 mmol/L (137-145); Total Bilirubin 0.3 mg/dL (0.2-1.3); Total Protein 3.7 g/dL (6.3-8.2)
--- NOTE | 2018-04-09 10:55 | IR ---
PICC LINE PLACEMENT: HISTORY: Infection requiring long-term antibiotic therapy PROCEDURE: Ultrasound and fluoroscopic guidance of PICC line placement. COMPLICATIONS: None ANESTHESIA: 1. 1% Lidocaine locally. FINDINGS/TECHNIQUE: The procedure was explained to the patient. The risks, complications, benefits and alternatives were discussed and any questions were answered. Informed consent was obtained. The patient was placed supine on the fluoroscopic table and prepped and draped in the usual sterile fash ion. Utilizing a 21 gauge needle and sonographic and fluoroscopic guidance, access in the left basi lic vein was achieved and there is placement of a 0.018 guidewire. The vein is patent. A 4-F sheath was placed over the guidewire. The guidewire and dilator were removed and a 4-F. PICC line was plac ed through the sheath with the tip at the level of the SVC. The sheath was removed, the catheter was flushed and sutured into position. The patient was stable throughout the procedure and remained sta ble upon discharge from the Department of Radiology. The vein puncture was patent under ultrasound. A marion scale image was obtained to document patency of the vein punctured. All elements of the maximal barrier technique were utilized. FLUOROSCOPY TIME: 0.5 minutes and one image submitted IMPRESSION: Successful PICC line placement under ultrasound and fluoroscopic guidance.
--- NOTE | 2018-04-09 11:19 | P.PN ---
Subjective Progress Note Date: 04/09/18 Principal diagnosis: Patient is seen for follow-up for acute kidney injury and the severe hypokalemia. She was admitted with intractable diarrhea nausea and vomiting. Patient has underlying history of for newly diagnosed colon cancer status post right colectomy in December and currently maintained on chemotherapy. Serum creatinine has improved from 1.48 on admission to 0.7 now. Serum potassium remains significantly low at about 2.7-3.1. This has been aggressively replaced and it is up to 4.3 today. Diarrhea seems to be improving. C. diff toxin was negative Objective - Vital Signs Vital signs: Vital Signs Temp 98.1 F 04/09/18 04:34 Pulse 94 04/09/18 04:34 Resp 16 04/09/18 04:34 BP 113/65 04/09/18 04:34 Pulse Ox 99 04/09/18 04:34 Intake & Output 04/08/18 04/09/18 04/09/18 18:59 06:59 18:59 Intake Total 1307 Output Total 3 Balance -3 1307 Weight 58.967 kg 61.5 kg Intake: Intake, IV Titration 1257 Amount 0.9% NaCl with KCl 20 Meq 900 /l 1,000 ml @ 100 mls/hr IV .Q10H [facility] Rx#: [id number] Fat Emulsion 20% 250 ml @ 147 21 mls/hr IV Q24H [facility] Rx #:[id number] Mvi, Adult No.4 with Vit 210 K 10 ml Trace (Conc-1Ml/ Dose) 1 ml In Amino Acid 5%-D15w+Lytes*E* 1,000 ml @ 30 mls/hr IV .Q24H [facility] Rx#:[id number] Oral 50 Output: Urine 3 Other: Voiding Method Toilet Toilet # Voids 2 # Bowel Movements 10 1 - Exam On examination patient is comfortable blood pressure is 113/65 heart rate 94/m she is afebrile Examination of the heart S1 and S2 Examination lungs bilateral breath sounds are heard Abdomen is soft nontender Exertion lower extremity shows no evidence of edema [employer] exam is grossly intact. - Labs CBC & Chem 7: 04/08/18 08:02 04/09/18 07:52 Labs: Abnormal Lab Results - Last 24 Hours (Table) 04/08/18 04/08/18 04/09/18 Range/Units 18:10 18:10 00:07 Sodium 130 L (137-145) mmol/L Chloride 108 H (98-107) mmol/L Carbon Dioxide 17 L (22-30) mmol/L Glucose (74-99) mg/dL POC Glucose (mg/dL) 109 H (75-99) mg/dL Ionized Calcium Live 5.9 H (4.5-5.3) mg/dL Phosphorus 2.4 L (2.5-4.5) mg/dL AST 13 L (14-36) U/L Total Protein 3.9 L (6.3-8.2) g/dL Albumin 1.9 L (3.5-5.0) g/dL 04/09/18 Range/Units 07:52 Sodium 134 L (137-145) mmol/L Chloride 115 H (98-107) mmol/L Carbon Dioxide 16 L (22-30) mmol/L Glucose 115 H (74-99) mg/dL POC Glucose (mg/dL) (75-99) mg/dL Ionized Calcium Live 6.0 H* (4.5-5.3) mg/dL Phosphorus 1.6 L (2.5-4.5) mg/dL AST 11 L (14-36) U/L Total Protein 3.7 L (6.3-8.2) g/dL Albumin 1.8 L (3.5-5.0) g/dL Microbiology - Last 24 Hours (Table) 04/05/18 11:55 Stool Culture - Final Stool Assessment and Plan Plan: Assessment 1. Acute kidney injury prerenal currently improved and resolved with IV hydration 2. Severe hypokalemia associated with GI fluid loss currently being replaced and improved. 3. Elevated ionized calcium secondary to metabolic acidosis. Total calcium reported was 8.5. Albumin also is low. Therefore, corrected calcium was at 10.3 4. Hypophosphatemia secondary to decreased oral intake currently being replaced 5. Recent diagnosis of colon cancer status post right colectomy and maintained on chemotherapy Plan Continue potassium replacement repeat labs this evening and adjust TPN for phosphorus and calcium. Decrease calcium in TPN
[2018-04-09 11:51] LABS: Glucose,Whole Blood 112 mg/dL (75-99)
[2018-04-09 11:56] LABS: Glucose,Whole Blood 116 mg/dL (75-99)
--- NOTE | 2018-04-09 13:38 | P.PN ---
Subjective Progress Note Date: 04/09/18 This is a 62-year-old female patient of Dr. Asif with past medical history of hypertension, breast cancer, colon cancer. Regarding colon cancer, patient underwent a right colectomy done with Dr. Kulkarni on 12/31/2017, she has now completed her second round of chemotherapy and developed severe diarrhea, vomiting and couldn't keep anything down. She has had loose diarrhea almost every half hour up to 20 times per day. She denies having any history of DVT since diagnosed with cancer. She has had weight loss over the past year both intentional and from the colon cancer. She states she saw Dr. James on Thursday and there is concern that it could be related to a urinary tract infection and she was started on doxycycline. Patient tried taking Imodium without any improvement of her loose stools. She is currently on Xeloda orally twice daily for colon cancer and tamoxifen 20 mg daily for breast cancer. She is status post left breast lumpectomy and radiation treatment. Patient came into [facility] emergency center for evaluation. Patient was afebrile, heart rate in the low 100s. WBD, hemoglobin and platelets within normal limits. Sodium 128, potassium 3.9, chloride 95, CO2 20 , BUN 34 and creatinine 1.48, blood sugar 134. Patient denies history of diabetes. Liver function tests within normal limits, albumin 2.9. Stool for occult blood and WBC positive. C. difficile toxin negative. Urinalysis was cloudy, leukoesterase large, nitrate negative, bacteria rare, squamous cell 5, hyalin casts 68. Urine and stool cultures in progress. KUB reveals no evidence of bowel obstruction or free intraperitoneal air. Generalized colonic air-fluid levels suggest colonic ileus or liquid stool related to colitis or enteritis 04/07: Patient is followed by nephrology and oncology. She states she is finally feeling improved from yesterday. Case discussed with Dr. James and he recommends monitoring for another day and have not significantly improved, consider nothing by mouth and TPN for bowel rest. No antibiotics are recommended at this time. She has been afebrile, heart rate running in the 70s and 80s, blood pressure 103/63 and pulse ox 99% on room air. Sodium is up to 120, potassium 2.8, chloride 105 and CO2 18, BUN 26 and creatinine 0.97. Patient is currently on a clear liquid diet. 04/08: Patient states that she is feeling better from yesterday but continues to have stools every half to one hour. Her heart rate is improved today. She has had potassium replacement and repeat again today is only at 2.[address] Hickman is provided replacement orders for 140 mEq. Urine culture is positive for Anna only. She has been on ceftriaxone. Await further recommendations from oncology. She is currently eating very little and is on a clear liquid diet 04/09: Patient is status post potassium replacement currently at 4.3, sodium 134 , chloride 115, CO2 16, creatinine 0.71. Ionized calcium 6, phosphorus 1.6, AST 11, albumin 1.8. H. pylori came back not detected. Urine positive for Anna only. Patient had PICC line placed and was started on TPN yesterday afternoon and is nothing by mouth except for ice chips, medications, popsicles and gum. Diarrhea is slowly improving. She is continued on IV hydration. Review of Systems Constitutional: Reports fatigue, Reports poor appetite, Reports weight loss, Denies anorexia, Denies chills, Denies fever, Denies weakness Eyes: denies blurred vision, denies pain Ears, nose, mouth and throat: Denies dysphagia, Denies headache, Denies hoarseness, Denies sore throat, Denies vertigo Cardiovascular: Denies chest pain, Denies dyspnea on exertion, Denies edema, Denies leg edema, Denies lightheadedness, Denies shortness of breath, Denies syncope Respiratory: Denies cough, Denies cough with sputum, Denies dyspnea, Denies excessive sputum, Denies hemoptysis, Denies home oxygen, Denies wheezing Gastrointestinal: Reports abdominal pain, Reports diarrhea, Reports loss of appetite, Reports nausea, denies vomiting Genitourinary: Denies dysuria, Denies hematuria Musculoskeletal: Denies frequent falls, Denies gait dysfunction, Denies myalgias Integumentary: Denies pruritus, Denies rash, Denies wounds Neurological: Denies aphasia, Denies change in mentation, Denies change in smell /taste, Denies gait dysfunction, Denies head injury, Denies headaches, Denies numbness, Denies seizures, Denies vertigo, Denies weakness Psychiatric: Denies anxiety, Denies depression Endocrine: Denies fatigue, Denies weight change Objective - Vital Signs Vital signs: Vital Signs Temp 98.1 F 04/09/18 04:34 Pulse 94 04/09/18 04:34 Resp 16 04/09/18 04:34 BP 113/65 04/09/18 04:34 Pulse Ox 99 04/09/18 04:34 Intake & Output 04/08/18 04/09/18 04/09/18 18:59 06:59 18:59 Intake Total 1307 Output Total 3 Balance -3 1307 Weight 58.967 kg 61.5 kg Intake: Intake, IV Titration 1257 Amount 0.9% NaCl with KCl 20 Meq 900 /l 1,000 ml @ 100 mls/hr IV .Q10H [facility] Rx#: [id number] Fat Emulsion 20% 250 ml @ 147 21 mls/hr IV Q24H [facility] Rx #:[id number] Mvi, Adult No.4 with Vit 210 K 10 ml Trace (Conc-1Ml/ Dose) 1 ml In Amino Acid 5%-D15w+Lytes*E* 1,000 ml @ 30 mls/hr IV .Q24H [facility] Rx#:[id number] Oral 50 Output: Urine 3 Other: Voiding Method Toilet Toilet # Voids 2 # Bowel Movements 10 1 - Labs CBC & Chem 7: 04/08/18 08:02 04/09/18 07:52 Labs: Abnormal Lab Results - Last 24 Hours (Table) 04/08/18 04/08/18 04/08/18 Range/Units 08:02 18:10 18:10 RBC 3.19 L (3.80-5.40) m/uL Hgb 10.8 L (11.4-16.0) gm/dL Hct 32.5 L (34.0-46.0) % MCV 101.6 H (80.0-100.0) fL RDW 18.4 H (11.5-15.5) % Sodium 130 L (137-145) mmol/L Chloride 108 H (98-107) mmol/L Carbon Dioxide 17 L (22-30) mmol/L Glucose (74-99) mg/dL POC Glucose (mg/dL) (75-99) mg/dL Ionized Calcium Live 5.9 H (4.5-5.3) mg/dL Phosphorus 2.4 L (2.5-4.5) mg/dL AST 13 L (14-36) U/L Total Protein 3.9 L (6.3-8.2) g/dL Albumin 1.9 L (3.5-5.0) g/dL 04/09/18 04/09/18 Range/Units 00:07 07:52 RBC (3.80-5.40) m/uL Hgb (11.4-16.0) gm/dL Hct (34.0-46.0) % MCV (80.0-100.0) fL RDW (11.5-15.5) % Sodium 134 L (137-145) mmol/L Chloride 115 H (98-107) mmol/L Carbon Dioxide 16 L (22-30) mmol/L Glucose 115 H (74-99) mg/dL POC Glucose (mg/dL) 109 H (75-99) mg/dL Ionized Calcium Live 6.0 H* (4.5-5.3) mg/dL Phosphorus 1.6 L (2.5-4.5) mg/dL AST 11 L (14-36) U/L Total Protein 3.7 L (6.3-8.2) g/dL Albumin 1.8 L (3.5-5.0) g/dL Microbiology - Last 24 Hours (Table) 04/05/18 11:55 Stool Culture - Final Stool Assessment and Plan Plan: 1. Acute kidney injury and dehydration secondary to nausea, vomiting and diarrhea. Patient is status post 2 L of IV fluid currently on 100 mL per hour. Continue Imodium for diarrhea, Zofran for nausea. Consult with nephrology. 2. History of colon cancer status post right colectomy and chemotherapy. Consult with Dr. James. Patient has been on Xeloda. 3. History of breast cancer status post lumpectomy and radiation. Continue tamoxifen. 4. Nausea, vomiting, diarrhea secondary to colitis from Xeloda. Consult with Dr. James. Continue IV fluids, Questran, Imodium. 5. Hypertension. Continue lisinopril 10 mg daily will be resumed. 6. Acute urinary tract infection treated with doxycycline as an outpatient. Continue ceftriaxone. 7. Hyponatremia secondary to dehydration. Continue IV fluids. 8. DVT prophylaxis. Lovenox daily. 9. GI prophylaxis. Protonix. 10. Hypokalemia secondary to diarrhea. Replaced 11. Hypercalcemia secondary to metabolic acidosis. 12. Hypophosphatemia secondary to decreased oral intake. Replaced Discharge plan: Return home most likely early next week Impression and plan of care have been directed as dictated by the signing physician. Opal Moreno nurse practitioner acting as scribe for signing physician.
[2018-04-09] MEDS ORDERED: FLUCONAZOLE 100 MG TAB PO ONE (13:41)
[2018-04-09] MEDS: SODIUM PHOSPHATE 10 MMOL in SODIUM CHLORIDE 0.9% 100 ML IVPB SCH ×2 (13:53→16:37)
[2018-04-09 18:00] LABS: Glucose,Whole Blood 136 mg/dL (75-99)
[2018-04-09] MEDS ORDERED: 1: MVI, ADULT NO.4 WITH VIT K 10 ML, TRACE (CONC-1ML/DOSE) 1 ML in AMINO ACID 5%-D15W+LY IV SCH ×3 (18:00)
--- NOTE | 2018-04-09 18:38 | P.PN ---
Subjective Progress Note Date: 04/09/18 Principal diagnosis: Diarrhea on Xeloda Diarrhea has improved today. TPN and electrolyte replacement to continue. Urine culture positive for lidia and diflucan 200mgpo ordered. Objective - Vital Signs Vital signs: Vital Signs Temp 97.7 F 04/09/18 11:55 Pulse 85 04/09/18 11:55 Resp 18 04/09/18 11:55 BP 92/60 04/09/18 11:55 Pulse Ox 100 04/09/18 11:55 Intake & Output 04/08/18 04/09/18 04/09/18 18:59 06:59 18:59 Intake Total 1307 Output Total 3 Balance -3 1307 Weight 58.967 kg 61.5 kg Intake: Intake, IV Titration 1257 Amount 0.9% NaCl with KCl 20 Meq 900 /l 1,000 ml @ 100 mls/hr IV .Q10H [facility] Rx#: [id number] Fat Emulsion 20% 250 ml @ 147 21 mls/hr IV Q24H [facility] Rx #:[id number] Mvi, Adult No.4 with Vit 210 K 10 ml Trace (Conc-1Ml/ Dose) 1 ml In Amino Acid 5%-D15w+Lytes*E* 1,000 ml @ 30 mls/hr IV .Q24H [facility] Rx#:[id number] Oral 50 Output: Urine 3 Other: Voiding Method Toilet Toilet # Voids 2 # Bowel Movements 10 1 - Exam - Constitutional General appearance: average body habitus, cooperative, no acute distress - EENT ulcerations noted on tongue, bilaterally, tongue is smooth, reddened Eyes: anicteric sclerae, EOMI ENT: no hard of hearing, hearing grossly normal, no NA/AT, no other, no pharyngeal erythema, no thrush, no tonsillar exudates, no tonsillar swelling - Neck Neck: no lymphadenopathy - Respiratory Respiratory: bilateral: CTA - Cardiovascular Rhythm: regular Heart sounds: normal: S1, S2 Abnormal Heart Sounds: no systolic murmur, no diastolic murmur, no rub, no S3 Gallop, no S4 Gallop, no click, no other leg Peripheral Edema: bilateral: None - Gastrointestinal slightly hyperactive BS, mild generalized tenderness with deeper palpation, no mass, organomegaly General gastrointestinal: no absent bowel sounds, no decreased bowel sounds, no distended, no hepatomegaly, no hyperactive bowel sounds, normal bowel sounds, no organomegaly, no rigid, no scaphoid, soft, no splenomegaly, tenderness, no umbilical hernia, no ventral hernia - Integumentary Grade 2 PPE on hands, feet 0-1 - Neurologic Neurologic: CNII-XII intact - Musculoskeletal Musculoskeletal: strength equal bilaterally - Psychiatric Psychiatric: A&O x's 3, appropriate affect, intact judgment & insight - Labs CBC & Chem 7: 04/08/18 08:02 04/09/18 07:52 Labs: Abnormal Lab Results - Last 24 Hours (Table) 04/08/18 04/08/18 04/09/18 Range/Units 18:10 18:10 00:07 Sodium 130 L (137-145) mmol/L Chloride 108 H (98-107) mmol/L Carbon Dioxide 17 L (22-30) mmol/L Glucose (74-99) mg/dL POC Glucose (mg/dL) 109 H (75-99) mg/dL Ionized Calcium Live 5.9 H (4.5-5.3) mg/dL Phosphorus 2.4 L (2.5-4.5) mg/dL AST 13 L (14-36) U/L Total Protein 3.9 L (6.3-8.2) g/dL Albumin 1.9 L (3.5-5.0) g/dL 04/09/18 04/09/18 04/09/18 Range/Units 05:55 07:52 11:55 Sodium 134 L (137-145) mmol/L Chloride 115 H (98-107) mmol/L Carbon Dioxide 16 L (22-30) mmol/L Glucose 115 H (74-99) mg/dL POC Glucose (mg/dL) 112 H 116 H (75-99) mg/dL Ionized Calcium Live 6.0 H* (4.5-5.3) mg/dL Phosphorus 1.6 L (2.5-4.5) mg/dL AST 11 L (14-36) U/L Total Protein 3.7 L (6.3-8.2) g/dL Albumin 1.8 L (3.5-5.0) g/dL Microbiology - Last 24 Hours (Table) 04/05/18 11:55 Stool Culture - Final Stool Assessment and Plan Plan: Assessment and Plan Drug-induced diarrhea - Cont IV fluids, with added potassium. - Clear liquids for now, diet will be advanced based on pt symptoms - If no improvements tomorrow will add PPM or TPN for short interval and NPO to allow complete bowel rest, discussed with Dr. Garza - C-diff negative. 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 Drug will be held until resolution of SE to grade 1. Dose will be reduced for cycle 3. Typically, it can take at least 3-5 days on discontinuation of xeloda for SE to resolve. Supportive treatments ordered - Likely will need to switch therapy as not tolerating Dehydration - IVF and clear liquids ordered for now, K+ added to IVF. Electrolyte depletion Severe Hypokalemia, Hypophosphatemia, Hypercalcemia - Potassium improved supp for phos given Moderate Protein Malnutrition from persistent Diarrhea and inability to absorb - Status Post Picc - TPN - NPO to allow bowel rest - Daily and close monitoring CMP, Mg, and Phos. Urine Culture Positive for Lidia - Diflucan 200mg po x1 ordered, interaction with tamoxifen and zofran, therefore zofran and tamoxifen will be held till Thursday Plan: - Continue supportive care, if diarrhea has not improved more by weekend will consider addition of sandostatin - Monitor CBC and ELectrolytes daily and supp prn - COntinue TPN and will start to advance diet slowly when diarrhea improves, hopefully over weekend - Encouraged to get out of bed, walk and sit in chair Physician Attestation: I have completed the fullhistory and physical and devloped the complete impression and plan and agree with above by Mia Colmenares NP, Dictated as a scribe
[2018-04-09 19:15] LABS: Anion Gap 4 mmol/L; Blood Urea Nitrogen 12 mg/dL (7-17); Calcium 8.7 mg/dL (8.4-10.2); Carbon Dioxide 18 mmol/L (22-30); Chloride 114 mmol/L (98-107); Glucose 118 mg/dL (74-99); Potassium 4.1 mmol/L (3.5-5.1); Sodium 136 mmol/L (137-145)
[2018-04-09] MEDS: FAT EMULSION 20% 250 ML IV SCH (19:27)
[2018-04-09 23:29] LABS: Glucose,Whole Blood 127 mg/dL (75-99)
[2018-04-10] MEDS: 0.9% NACL WITH KCL 20 MEQ/L 1,000 ML IV SCH ×3 (00:30→23:42)
[2018-04-10] MEDS: LOPERAMIDE 2 MG CAP PO PRN ×4 (03:41→20:45)
[2018-04-10 05:45] LABS: Glucose,Whole Blood 131 mg/dL (75-99)
[2018-04-10] MEDS: DIPHENOX-ATROP 2.5-0.025 MG 1 EACH TAB PO SCH ×4 (05:46→23:42)
[2018-04-10] MEDS: INSULIN ASPART (NovoLOG) 100 UNIT/ML VIAL SQ SCH ×4 (05:47→23:42)
[2018-04-10 07:17] LABS: Anisocytosis Slight; Basophils % (A) 0 %; Eosinophils # (A) 0.2 k/uL (0-0.7); Eosinophils % (A) 4 %; HCT 27.4 % (34.0-46.0); Lymphocytes # (A) 1.5 k/uL (1.0-4.8); Lymphocytes % (A) 35 %; MCH 34.1 pg (25.0-35.0); MCHC 32.9 g/dL (31.0-37.0); MCV 103.8 fL (80.0-100.0); Macrocytosis Moderate; Monocytes # (A) 0.3 k/uL (0-1.0); Monocytes % (A) 8 %; Neutrophils # (A) 2.2 k/uL (1.3-7.7); Neutrophils % (A) 51 %; Platelet Count 209 k/uL (150-450); RBC 2.64 m/uL (3.80-5.40); RDW 17.8 % (11.5-15.5); WBC 4.2 k/uL (3.8-10.6)
[2018-04-10 07:21] LABS: ALT 24 U/L (9-52); AST 10 U/L (14-36); Albumin 1.6 g/dL (3.5-5.0); Alkaline Phosphatase 35 U/L (38-126); Anion Gap 2 mmol/L; Blood Urea Nitrogen 13 mg/dL (7-17); Calcium 7.7 mg/dL (8.4-10.2); Carbon Dioxide 16 mmol/L (22-30); Chloride 116 mmol/L (98-107); Glucose 126 mg/dL (74-99); Magnesium 1.8 mg/dL (1.6-2.3); Phosphorus 2.5 mg/dL (2.5-4.5); Sodium 134 mmol/L (137-145); Total Bilirubin 0.2 mg/dL (0.2-1.3); Total Protein 3.4 g/dL (6.3-8.2)
[2018-04-10] MEDS: LISINOPRIL 10 MG TAB PO SCH (08:39)
[2018-04-10] MEDS: SODIUM BICARBONATE TAB 650 MG TAB PO SCH ×4 (08:40→23:44)
[2018-04-10] MEDS: CHOLECALCIFEROL 1,000 UNIT TAB PO SCH ×2 (08:40→08:48)
[2018-04-10] MEDS: POTASSIUM CHLORIDE ER 20 MEQ TAB.ER PO SCH (08:40)
[2018-04-10] MEDS: CYANOCOBALAMIN 500 MCG TAB PO SCH ×2 (08:40→08:48)
[2018-04-10] MEDS: ENOXAPARIN 40 MG/0.4 ML SYRINGE SQ SCH (08:40)
[2018-04-10] MEDS: ASPIRIN 81 MG PO SCH (08:40)
[2018-04-10] MEDS: FERROUS SULFATE 325 MG TAB PO SCH (08:40)
[2018-04-10] MEDS: PANTOPRAZOLE 40 MG TABLET PO SCH (08:40)
[2018-04-10] MEDS: MAG HYDROX/AL HYDROX/SIMETH 30 ML, LIDOCAINE VISCOUS 30 ML, diphenhydrAMINE ELIXIR 75 M... PO SCH ×12 (08:41→23:43)
[2018-04-10] MEDS: PETROLATUM, WHITE OINT 50 GM TUBE TOPICAL SCH ×4 (08:42→23:43)
[2018-04-10] MEDS: HYDROCORTISONE 1% CREAM 454 GM JAR TOPICAL SCH ×4 (08:42→23:43)
[2018-04-10] MEDS: CHOLESTYRAMINE (WITH SUGAR) 4 GM PACKET PO SCH ×3 (08:44→17:36)
--- NOTE | 2018-04-10 11:26 | P.PN ---
Subjective Progress Note Date: 04/10/18 This is a 62-year-old female patient of Dr. Asif with past medical history of hypertension, breast cancer, colon cancer. Regarding colon cancer, patient underwent a right colectomy done with Dr. Kulkarni on 12/31/2017, she has now completed her second round of chemotherapy and developed severe diarrhea, vomiting and couldn't keep anything down. She has had loose diarrhea almost every half hour up to 20 times per day. She denies having any history of DVT since diagnosed with cancer. She has had weight loss over the past year both intentional and from the colon cancer. She states she saw Dr. James on Thursday and there is concern that it could be related to a urinary tract infection and she was started on doxycycline. Patient tried taking Imodium without any improvement of her loose stools. She is currently on Xeloda orally twice daily for colon cancer and tamoxifen 20 mg daily for breast cancer. She is status post left breast lumpectomy and radiation treatment. Patient came into [facility] emergency center for evaluation. Patient was afebrile, heart rate in the low 100s. WBD, hemoglobin and platelets within normal limits. Sodium 128, potassium 3.9, chloride 95, CO2 20 , BUN 34 and creatinine 1.48, blood sugar 134. Patient denies history of diabetes. Liver function tests within normal limits, albumin 2.9. Stool for occult blood and WBC positive. C. difficile toxin negative. Urinalysis was cloudy, leukoesterase large, nitrate negative, bacteria rare, squamous cell 5, hyalin casts 68. Urine and stool cultures in progress. KUB reveals no evidence of bowel obstruction or free intraperitoneal air. Generalized colonic air-fluid levels suggest colonic ileus or liquid stool related to colitis or enteritis 04/07: Patient is followed by nephrology and oncology. She states she is finally feeling improved from yesterday. Case discussed with Dr. James and he recommends monitoring for another day and have not significantly improved, consider nothing by mouth and TPN for bowel rest. No antibiotics are recommended at this time. She has been afebrile, heart rate running in the 70s and 80s, blood pressure 103/63 and pulse ox 99% on room air. Sodium is up to 120, potassium 2.8, chloride 105 and CO2 18, BUN 26 and creatinine 0.97. Patient is currently on a clear liquid diet. 04/08: Patient states that she is feeling better from yesterday but continues to have stools every half to one hour. Her heart rate is improved today. She has had potassium replacement and repeat again today is only at 2.[address] Hickman is provided replacement orders for 140 mEq. Urine culture is positive for Anna only. She has been on ceftriaxone. Await further recommendations from oncology. She is currently eating very little and is on a clear liquid diet 04/09: Patient is status post potassium replacement currently at 4.3, sodium 134 , chloride 115, CO2 16, creatinine 0.71. Ionized calcium 6, phosphorus 1.6, AST 11, albumin 1.8. H. pylori came back not detected. Urine positive for Anna only. Patient had PICC line placed and was started on TPN yesterday afternoon and is nothing by mouth except for ice chips, medications, popsicles and gum. Diarrhea is slowly improving. She is continued on IV hydration. 04/10: Patient is resting comfortably in bed. Patient states that bowel movements are occurring about every 2-2-1/2 hours and she is able to make it to the bathroom now. Patient was able to get up and perform personal hygiene without any difficulties. Still experiencing some tenderness to the incisional site. Denies any pain or discomfort at this time. Patient was seen by gastroenterology and at this time we will continue to monitor diarrhea. Really C4.2, hemoglobin 9, sodium 134, potassium 4.0, BUN 13, creatinine 0.52, albumin is low as 1.6. Review of Systems Constitutional: Reports fatigue, Reports poor appetite, Reports weight loss, Denies anorexia, Denies chills, Denies fever, Denies weakness Eyes: denies blurred vision, denies pain Ears, nose, mouth and throat: Denies dysphagia, Denies headache, Denies hoarseness, Denies sore throat, Denies vertigo Cardiovascular: Denies chest pain, Denies dyspnea on exertion, Denies edema, Denies leg edema, Denies lightheadedness, Denies shortness of breath, Denies syncope Respiratory: Denies cough, Denies cough with sputum, Denies dyspnea, Denies excessive sputum, Denies hemoptysis, Denies home oxygen, Denies wheezing Gastrointestinal: Denies abdominal pain, Reports diarrhea, Reports loss of appetite, Reports nausea, denies vomiting Genitourinary: Denies dysuria, Denies hematuria Musculoskeletal: Denies frequent falls, Denies gait dysfunction, Denies myalgias Integumentary: Denies pruritus, Denies rash, Denies wounds Neurological: Denies aphasia, Denies change in mentation, Denies change in smell /taste, Denies gait dysfunction, Denies head injury, Denies headaches, Denies numbness, Denies seizures, Denies vertigo, Denies weakness Psychiatric: Denies anxiety, Denies depression Endocrine: Denies fatigue, Denies weight change Objective - Vital Signs Vital signs: Vital Signs Temp 98.4 F 04/10/18 04:50 Pulse 92 04/10/18 04:50 Resp 16 04/10/18 04:50 BP 116/67 04/10/18 04:50 Pulse Ox 99 04/10/18 04:50 Intake & Output 04/09/18 04/10/18 04/10/18 18:59 06:59 18:59 Intake Total 800 2442 0 Balance 800 2442 0 Weight 61.5 kg 61.5 kg Intake: Intake, IV Titration 800 2322 Amount 0.9% NaCl with KCl 20 Meq 1200 /l 1,000 ml @ 100 mls/hr IV .Q10H [facility] Rx#: [id number] Fat Emulsion 20% 250 ml @ 228 21 mls/hr IV Q24H [facility] Rx #:[id number] Mvi, Adult No.4 with Vit 230 K 10 ml Trace (Conc-1Ml/ Dose) 1 ml In Amino Acid 5%-D15w+Lytes*E* 1,000 ml @ 83 mls/hr IV .BY DURATION [facility] Rx#: [id number] Mvi, Adult No.4 with Vit 800 664 K 10 ml Trace (Conc-1Ml/ Dose) 1 ml Sodium Acetate 35 meq Potassium Phosphate 20 mmol Magnesium Sulfate gm 0.5 gm In Amino Acid 5%-D15w 1,000 ml @ 83 mls/hr IV . BY DURATION [facility] Rx#: [id number] Oral 120 0 Other: Voiding Method Toilet Toilet # Voids 1 1 # Bowel Movements 1 1 - Exam Gen: This is a thin 62-year-old female. She is sitting up in bed in no acute distress. HEENT: Head is atraumatic, normocephalic. Pupils equal, round. Sclerae is anicteric. NECK: Supple. No JVD. No lymphadenopathy. No thyromegaly. LUNGS: Clear to auscultation. No wheezes or rhonchi. No intercostal retractions. HEART: Regular rate and rhythm. No murmur. ABDOMEN: Soft. Bowel sounds are present. No masses. + tenderness to incision. No hepatosplenomegaly. EXTREMITIES: No pedal edema. No calf tenderness. Dorsalis pedis +2 bilaterally. NEUROLOGICAL: Patient is awake, alert and oriented x3. Cranial nerves 2 through 12 are grossly intact. - Labs CBC & Chem 7: 04/10/18 07:00 04/10/18 07:00 Labs: Abnormal Lab Results - Last 24 Hours (Table) 04/09/18 04/09/18 04/09/18 Range/Units 05:55 11:55 17:59 RBC (3.80-5.40) m/uL Hgb (11.4-16.0) gm/dL Hct (34.0-46.0) % MCV (80.0-100.0) fL RDW (11.5-15.5) % Sodium (137-145) mmol/L Chloride (98-107) mmol/L Carbon Dioxide (22-30) mmol/L Glucose (74-99) mg/dL POC Glucose (mg/dL) 112 H 116 H 136 H (75-99) mg/dL Calcium (8.4-10.2) mg/dL AST (14-36) U/L Alkaline Phosphatase (38-126) U/L Total Protein (6.3-8.2) g/dL Albumin (3.5-5.0) g/dL 04/09/18 04/09/18 04/10/18 Range/Units 18:56 23:24 05:43 RBC (3.80-5.40) m/uL Hgb (11.4-16.0) gm/dL Hct (34.0-46.0) % MCV (80.0-100.0) fL RDW (11.5-15.5) % Sodium 136 L (137-145) mmol/L Chloride 114 H (98-107) mmol/L Carbon Dioxide 18 L (22-30) mmol/L Glucose 118 H (74-99) mg/dL POC Glucose (mg/dL) 127 H 131 H (75-99) mg/dL Calcium (8.4-10.2) mg/dL AST (14-36) U/L Alkaline Phosphatase (38-126) U/L Total Protein (6.3-8.2) g/dL Albumin (3.5-5.0) g/dL 04/10/18 04/10/18 Range/Units 07:00 07:00 RBC 2.64 L (3.80-5.40) m/uL Hgb 9.0 L D (11.4-16.0) gm/dL Hct 27.4 L (34.0-46.0) % MCV 103.8 H (80.0-100.0) fL RDW 17.8 H (11.5-15.5) % Sodium 134 L (137-145) mmol/L Chloride 116 H (98-107) mmol/L Carbon Dioxide 16 L (22-30) mmol/L Glucose 126 H (74-99) mg/dL POC Glucose (mg/dL) (75-99) mg/dL Calcium 7.7 L (8.4-10.2) mg/dL AST 10 L (14-36) U/L Alkaline Phosphatase 35 L (38-126) U/L Total Protein 3.4 L (6.3-8.2) g/dL Albumin 1.6 L (3.5-5.0) g/dL Microbiology - Last 24 Hours (Table) 04/05/18 11:55 Stool Culture - Final Stool Assessment and Plan Plan: 1. Acute kidney injury and dehydration secondary to nausea, vomiting and diarrhea. Patient is status post 2 L of IV fluid currently on 100 mL per hour. Continue Imodium for diarrhea, Zofran for nausea. Consult with nephrology appreciated. 2. Colitis. Same as #1. Consult with gastroenterology appreciated. 3. History of colon cancer status post right colectomy and chemotherapy. Consult with Dr. James appreciated. Patient has been on Xeloda. 4. History of breast cancer status post lumpectomy and radiation. Continue tamoxifen. 5. Nausea, vomiting, diarrhea secondary to colitis from Xeloda. Consult with Dr. James appreciated. Continue IV fluids, Questran, Imodium. 6. Hypertension. Continue lisinopril 10 mg daily will be resumed. 7. Acute urinary tract infection treated with doxycycline as an outpatient. Continue ceftriaxone. 8. Hyponatremia secondary to dehydration. Continue IV fluids. 9. DVT prophylaxis. Lovenox daily. 10. GI prophylaxis. Protonix. 11. Hypokalemia secondary to diarrhea. Replaced 12. Hypercalcemia secondary to metabolic acidosis. 13. Hypophosphatemia secondary to decreased oral intake. Replaced Discharge plan: Return home most likely Thursday Impression and plan of care have been directed as dictated by the signing physician. Kimberly Mike nurse practitioner acting as scribe for signing physician
[2018-04-10 11:57] LABS: Glucose,Whole Blood 117 mg/dL (75-99)
[2018-04-10] MEDS: MAGNESIUM SULFATE-D5W PMX 1 GM in DEXTROSE/WATER 1 100ML.BAG IVPB SCH ×2 (12:15→13:32)
--- NOTE | 2018-04-10 12:17 | P.PN ---
Subjective Progress Note Date: 04/10/18 Principal diagnosis: 62-year-old female seen in consultation because of profuse nausea vomiting diarrhea and acute kidney injury with hypokalemia and metabolic acidosis. She is on by mouth sodium bicarbonate 650 twice a day as well as potassium acetate in the IV with IV amino acids. No nausea vomiting she is nothing by mouth because of the profuse diarrhea. So far over the last 6 hours and then maybe for loose stools of moderate amount. Other than this she is not having any fever chills abdominal pain known headache dizziness. Objective - Vital Signs Vital signs: Vital Signs Temp 98.4 F 04/10/18 04:50 Pulse 92 04/10/18 04:50 Resp 16 04/10/18 04:50 BP 116/67 04/10/18 04:50 Pulse Ox 99 04/10/18 04:50 Intake & Output 04/09/18 04/10/18 04/10/18 18:59 06:59 18:59 Intake Total 800 2442 0 Balance 800 2442 0 Weight 61.5 kg 61.5 kg Intake: Intake, IV Titration 800 2322 Amount 0.9% NaCl with KCl 20 Meq 1200 /l 1,000 ml @ 100 mls/hr IV .Q10H [facility] Rx#: [id number] Fat Emulsion 20% 250 ml @ 228 21 mls/hr IV Q24H [facility] Rx #:[id number] Mvi, Adult No.4 with Vit 230 K 10 ml Trace (Conc-1Ml/ Dose) 1 ml In Amino Acid 5%-D15w+Lytes*E* 1,000 ml @ 83 mls/hr IV .BY DURATION [facility] Rx#: [id number] Mvi, Adult No.4 with Vit 800 664 K 10 ml Trace (Conc-1Ml/ Dose) 1 ml Sodium Acetate 35 meq Potassium Phosphate 20 mmol Magnesium Sulfate gm 0.5 gm In Amino Acid 5%-D15w 1,000 ml @ 83 mls/hr IV . BY DURATION [facility] Rx#: [id number] Oral 120 0 Other: Voiding Method Toilet Toilet # Voids 1 1 # Bowel Movements 1 1 On examination awake alert oriented cheerful. Vital signs are stable. HEENT exam no JVP neck is supple no facial asymmetry Lungs are clear to auscultation good air entry bilaterally Heart sounds are unremarkable for any murmur rub gallop Abdomen soft nontender nondistended no masses felt Extremity exam was no edema Neurologically awake alert oriented - Labs CBC & Chem 7: 04/10/18 07:00 04/10/18 07:00 Labs: Abnormal Lab Results - Last 24 Hours (Table) 04/09/18 04/09/18 04/09/18 Range/Units 17:59 18:56 23:24 RBC (3.80-5.40) m/uL Hgb (11.4-16.0) gm/dL Hct (34.0-46.0) % MCV (80.0-100.0) fL RDW (11.5-15.5) % Sodium 136 L (137-145) mmol/L Chloride 114 H (98-107) mmol/L Carbon Dioxide 18 L (22-30) mmol/L Glucose 118 H (74-99) mg/dL POC Glucose (mg/dL) 136 H 127 H (75-99) mg/dL Calcium (8.4-10.2) mg/dL AST (14-36) U/L Alkaline Phosphatase (38-126) U/L Total Protein (6.3-8.2) g/dL Albumin (3.5-5.0) g/dL 04/10/18 04/10/18 04/10/18 Range/Units 05:43 07:00 07:00 RBC 2.64 L (3.80-5.40) m/uL Hgb 9.0 L D (11.4-16.0) gm/dL Hct 27.4 L (34.0-46.0) % MCV 103.8 H (80.0-100.0) fL RDW 17.8 H (11.5-15.5) % Sodium 134 L (137-145) mmol/L Chloride 116 H (98-107) mmol/L Carbon Dioxide 16 L (22-30) mmol/L Glucose 126 H (74-99) mg/dL POC Glucose (mg/dL) 131 H (75-99) mg/dL Calcium 7.7 L (8.4-10.2) mg/dL AST 10 L (14-36) U/L Alkaline Phosphatase 35 L (38-126) U/L Total Protein 3.4 L (6.3-8.2) g/dL Albumin 1.6 L (3.5-5.0) g/dL 04/10/18 Range/Units 11:56 RBC (3.80-5.40) m/uL Hgb (11.4-16.0) gm/dL Hct (34.0-46.0) % MCV (80.0-100.0) fL RDW (11.5-15.5) % Sodium (137-145) mmol/L Chloride (98-107) mmol/L Carbon Dioxide (22-30) mmol/L Glucose (74-99) mg/dL POC Glucose (mg/dL) 117 H (75-99) mg/dL Calcium (8.4-10.2) mg/dL AST (14-36) U/L Alkaline Phosphatase (38-126) U/L Total Protein (6.3-8.2) g/dL Albumin (3.5-5.0) g/dL Microbiology - Last 24 Hours (Table) 04/05/18 11:55 Stool Culture - Final Stool Assessment and Plan Assessment: Impression 1. Acute kidney injury secondary to volume depletion from nausea vomiting diarrhea resolved creatinine is down to 0.52. Peak creatinine was 1.48. 2. Hypokalemia secondary to GI losses resolved with potassium 4 currently on replacement both IV and by mouth 3. Hypophosphatemia and hypomagnesemia corrected 4. Mild degree of non-gap acidosis with bicarb going down from 20 mmol to 16. In spite of being on potassium acetate IV as well as sodium bicarb 650 twice a day 5. CA colon Recommendation 1. Increase in bicarb to 6 and 50 4 times a day. 2. If bicarb continues to go down will increase the IV acetate
--- NOTE | 2018-04-10 15:09 | P.PN ---
Subjective Progress Note Date: 04/10/18 Principal diagnosis: Diarrhea on Xeloda Diarrhea has improved today. TPN and electrolyte replacement to continue. Urine culture positive for lidia and diflucan 200mgpo and given 04/09/18. She is up walking in hallway, bowel movements are less frequent 2-3 hour intervals rather than 20-30minute intervals. Objective - Vital Signs Vital signs: Vital Signs Temp 98.0 F 04/10/18 12:35 Pulse 88 04/10/18 12:35 Resp 18 04/10/18 12:35 BP 100/63 04/10/18 12:35 Pulse Ox 100 04/10/18 12:35 Intake & Output 04/09/18 04/10/18 04/10/18 18:59 06:59 18:59 Intake Total 800 2442 0 Balance 800 2442 0 Weight 61.5 kg 61.5 kg Intake: Intake, IV Titration 800 2322 Amount 0.9% NaCl with KCl 20 Meq 1200 /l 1,000 ml @ 100 mls/hr IV .Q10H [facility] Rx#: [id number] Fat Emulsion 20% 250 ml @ 228 21 mls/hr IV Q24H [facility] Rx #:[id number] Mvi, Adult No.4 with Vit 230 K 10 ml Trace (Conc-1Ml/ Dose) 1 ml In Amino Acid 5%-D15w+Lytes*E* 1,000 ml @ 83 mls/hr IV .BY DURATION [facility] Rx#: [id number] Mvi, Adult No.4 with Vit 800 664 K 10 ml Trace (Conc-1Ml/ Dose) 1 ml Sodium Acetate 35 meq Potassium Phosphate 20 mmol Magnesium Sulfate gm 0.5 gm In Amino Acid 5%-D15w 1,000 ml @ 83 mls/hr IV . BY DURATION [facility] Rx#: [id number] Oral 120 0 Other: Voiding Method Toilet Toilet # Voids 1 2 # Bowel Movements 1 1 - Exam - Constitutional General appearance: average body habitus, cooperative, no acute distress - EENT ulcerations noted on tongue, bilaterally, tongue is smooth, reddened Eyes: anicteric sclerae, EOMI ENT: no hard of hearing, hearing grossly normal, no NA/AT, no other, no pharyngeal erythema, no thrush, no tonsillar exudates, no tonsillar swelling - Neck Neck: no lymphadenopathy - Respiratory Respiratory: bilateral: CTA - Cardiovascular Rhythm: regular Heart sounds: normal: S1, S2 Abnormal Heart Sounds: no systolic murmur, no diastolic murmur, no rub, no S3 Gallop, no S4 Gallop, no click, no other leg Peripheral Edema: bilateral: None - Gastrointestinal slightly hyperactive BS, mild generalized tenderness with deeper palpation, no mass, organomegaly General gastrointestinal: no absent bowel sounds, no decreased bowel sounds, no distended, no hepatomegaly, no hyperactive bowel sounds, normal bowel sounds, no organomegaly, no rigid, no scaphoid, soft, no splenomegaly, tenderness, no umbilical hernia, no ventral hernia - Integumentary Grade 2 PPE on hands, feet 0-1 - Neurologic Neurologic: CNII-XII intact - Musculoskeletal Musculoskeletal: strength equal bilaterally - Psychiatric Psychiatric: A&O x's 3, appropriate affect, intact judgment & insight - Labs CBC & Chem 7: 04/10/18 07:00 04/10/18 07:00 Labs: Abnormal Lab Results - Last 24 Hours (Table) 04/09/18 04/09/18 04/09/18 Range/Units 17:59 18:56 23:24 RBC (3.80-5.40) m/uL Hgb (11.4-16.0) gm/dL Hct (34.0-46.0) % MCV (80.0-100.0) fL RDW (11.5-15.5) % Sodium 136 L (137-145) mmol/L Chloride 114 H (98-107) mmol/L Carbon Dioxide 18 L (22-30) mmol/L Glucose 118 H (74-99) mg/dL POC Glucose (mg/dL) 136 H 127 H (75-99) mg/dL Calcium (8.4-10.2) mg/dL AST (14-36) U/L Alkaline Phosphatase (38-126) U/L Total Protein (6.3-8.2) g/dL Albumin (3.5-5.0) g/dL 04/10/18 04/10/18 04/10/18 Range/Units 05:43 07:00 07:00 RBC 2.64 L (3.80-5.40) m/uL Hgb 9.0 L D (11.4-16.0) gm/dL Hct 27.4 L (34.0-46.0) % MCV 103.8 H (80.0-100.0) fL RDW 17.8 H (11.5-15.5) % Sodium 134 L (137-145) mmol/L Chloride 116 H (98-107) mmol/L Carbon Dioxide 16 L (22-30) mmol/L Glucose 126 H (74-99) mg/dL POC Glucose (mg/dL) 131 H (75-99) mg/dL Calcium 7.7 L (8.4-10.2) mg/dL AST 10 L (14-36) U/L Alkaline Phosphatase 35 L (38-126) U/L Total Protein 3.4 L (6.3-8.2) g/dL Albumin 1.6 L (3.5-5.0) g/dL 04/10/18 Range/Units 11:56 RBC (3.80-5.40) m/uL Hgb (11.4-16.0) gm/dL Hct (34.0-46.0) % MCV (80.0-100.0) fL RDW (11.5-15.5) % Sodium (137-145) mmol/L Chloride (98-107) mmol/L Carbon Dioxide (22-30) mmol/L Glucose (74-99) mg/dL POC Glucose (mg/dL) 117 H (75-99) mg/dL Calcium (8.4-10.2) mg/dL AST (14-36) U/L Alkaline Phosphatase (38-126) U/L Total Protein (6.3-8.2) g/dL Albumin (3.5-5.0) g/dL Assessment and Plan Plan: Assessment and Plan Drug-induced diarrhea - Cont IV fluids, with added potassium. - Clear liquids for now, diet will be advanced based on pt symptoms - If no improvements tomorrow will add PPM or TPN for short interval and NPO to allow complete bowel rest, discussed with Dr. Garza - aMylin-diff negative. 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 Drug will be held until resolution of SE to grade 1. Dose will be reduced for cycle 3. Typically, it can take at least 3-5 days on discontinuation of xeloda for SE to resolve. Supportive treatments ordered - Likely will need to switch therapy as not tolerating Dehydration - IVF and clear liquids ordered for now, K+ added to IVF. Electrolyte depletion Severe Hypokalemia, Hypophosphatemia, Hypercalcemia - Potassium improved supp for phos given Moderate Protein Malnutrition from persistent Diarrhea and inability to absorb - Status Post Picc - TPN - NPO to allow bowel rest - Daily and close monitoring CMP, Mg, and Phos. Urine Culture Positive for Lidia - Diflucan 200mg po x1 ordered, interaction with tamoxifen and zofran, therefore zofran and tamoxifen will be held till Thursday Plan: - Continue supportive care, if diarrhea has not improved more by weekend will consider addition of sandostatin - Monitor CBC and ELectrolytes daily and supp prn - COntinue TPN and will start to advance diet slowly when diarrhea improves, hopefully over weekend - Encouraged to get out of bed, walk and sit in chair - She has been walking and tolerating well - She is continueing to show improvement daily. - Plan to advance diet tomorrow as long as continued improvements - Check Iron studies today Physician Attestation: I have completed the full history and physical and devloped the complete impression and plan and agree with above by Mia Colmenares NP, Dictated as a scribe
--- NOTE | 2018-04-10 15:30 | P.CONS ---
History of Present Illness - Reason for Consult Consult date: 04/10/18 Diarrhea Requesting physician: Eddie James - Chief Complaint Diarrhea, nausea and vomiting, rash - History of Present Illness The patient is a pleasant 62-year-old female with a medical history of breast cancer, stage II colon cancer status post right hemicolectomy and hypertension who presented to the hospital with multiple complaints. The patient had been started on Xeloda and received 2 cycles of treatment. She subsequently reports developing decreased appetite, nausea and vomiting and frequent diarrhea as well as irritated skin on her hands bilaterally. The patient had reported that the bowel movements or so frequent that they were occurring every 15 minutes. Described as watery without blood or melena reported. The patient had subsequently become dehydrated and presented to the hospital for her constellation of symptoms. In the hospital the patient was started on a treatment regimen including cholestyramine, Lomotil, and Imodium around-the- clock. When seen lying in bed the patient was reporting feeling much better. Bowel movements had slowed down and she reports that they haven't been occurring every 1-1/2-2 hours. She is denying any abdominal pain presently. But does report intermittent lower cramping abdominal pain. She was previously reporting urgency with bowel movements but states that this has improved as he bowel movements have become less frequent. Patient had testing for Helicobacter pylori which was negative, Clostridium difficile which was negative , lactoferrin which was positive and stool for occult blood which was positive. Liver enzymes were significant for a total bilirubin 0.3, alkaline phosphatase 43, AST 11 and ALT 27. Hemoglobin 10.8 with MCV 101.6. Review of Systems REVIEW OF SYSTEMS: CONSTITUTIONAL: Denies any fevers, chills, but did report fatigue on presentation which is improved. CARDIOVASCULAR: Denies any chest pain, palpitations high or low blood pressures RESPIRATORY: Denies any shortness of breath, hemoptysis or cough. GENITOURINARY: No dysuria or hematuria. MUSCULOSKELETAL: Positive for weakness. SKIN: Denies any new rashes or lesions, jaundice or pallor. PSYCHIATRIC: Denies any depression or anxiety. NEUROLOGY: Denies headache, denies any new focal deficits. EARS/NOSE/THROAT: No recent hearing change, congestion, nasal discharge or sore throat. EYES: No pain in eyes, discharge or change in vision. GASTROINTESTINAL: As per HPI. Past Medical History Past Medical History: Cancer, GERD/Reflux, Hypertension Additional Past Medical History / Comment(s): LT BREAST CANCER, colon cancer stage II status post right colectomy History of Any Multi-Drug Resistant Organisms: None Reported Past Surgical History: No Surgical Hx Reported Additional Past Surgical History / Comment(s): LT BREAST LUMPECTOMY-RADIATION Past Anesthesia/Blood Transfusion Reactions: No Reported Reaction Past Psychological History: No Psychological Hx Reported Smoking Status: Former smoker Past Alcohol Use History: None Reported Additional Past Alcohol Use History / Comment(s): Patient was a smoker and quit in December 2017. She denies any alcohol use. Patient lives alone, . Past Drug Use History: None Reported - Past Family History Mother Family Medical History: No Reported History Additional Family Medical History / Comment(s): Mother is in her 80s with history of COPD and dementia. Father Additional Family Medical History / Comment(s): Father is in his 80s with history of atrial fibrillation. Sister(s) Additional Family Medical History / Comment(s): Patient has 1 sister with no major medical problems. Patient does not have any brothers. Patient has 2 daughters with no major medical problems. Medications and Allergies Home Medications Medication Instructions Recorded Confirmed Type Aspirin [Adult Low Dose Aspirin EC] 81 mg PO DAILY 07/10/17 04/05/18 History Cholecalciferol (Vitamin D3) 2,000 unit PO DAILY 07/10/17 04/05/18 History [Vitamin D3] Cyanocobalamin [Vitamin B-12] 500 mcg PO DAILY 07/10/17 04/05/18 History Lisinopril [Zestril] 10 mg PO DAILY 07/10/17 04/05/18 History Multivitamins, Thera [Multivitamin 1 tab PO DAILY 07/10/17 04/05/18 History (formulary)] Tamoxifen Citrate 20 mg PO DAILY 12/16/17 04/05/18 History Biotin 5 mg PO DAILY 04/05/18 04/05/18 History Capecitabine [Xeloda] 750 mg PO BID 04/05/18 04/05/18 History Doxycycline Hyclate [Vibramycin] 100 mg PO BID 04/05/18 04/05/18 History Ferrous Sulfate [Feosol] 325 mg PO DAILY 04/05/18 04/05/18 History Loperamide [Imodium] 2 mg PO QID PRN 04/05/18 04/05/18 History Prochlorperazine [Compazine] 10 mg PO Q6H PRN 04/05/18 04/05/18 History Allergies Allergy/AdvReac Type Severity Reaction Status Date / Time No Known Allergies Allergy Verified 04/05/18 11:30 Physical Exam Vitals: Vital Signs Temp Pulse Pulse Resp BP Pulse Ox 04/10/18 12:35 98.0 F 88 18 100/63 100 04/10/18 04:50 98.4 F 92 16 116/67 99 04/09/18 23:50 16 04/09/18 21:00 97.8 F 87 16 124/75 100 Intake and Output 04/10/18 04/10/18 04/10/18 06:59 14:59 22:59 Intake Total 1692 0 Balance 1692 0 Intake: Intake, IV Titration 1632 Amount 0.9% NaCl with KCl 20 Meq 800 /l 1,000 ml @ 100 mls/hr IV .Q10H [facility] Rx#: [id number] Fat Emulsion 20% 250 ml @ 168 21 mls/hr IV Q24H [facility] Rx #:[id number] Mvi, Adult No.4 with Vit 664 K 10 ml Trace (Conc-1Ml/ Dose) 1 ml Sodium Acetate 35 meq Potassium Phosphate 20 mmol Magnesium Sulfate gm 0.5 gm In Amino Acid 5%-D15w 1,000 ml @ 83 mls/hr IV . BY DURATION [facility] Rx#: [id number] Oral 60 0 Other: Voiding Method Toilet # Voids 1 2 # Bowel Movements 1 1 Weight 61.5 kg On physical examination, patient appears comfortable in no apparent distress. HEAD: Normocephalic, atraumatic. EYES: No scleral icterus. No conjunctival injection. MOUTH: No lesions, tongue midline. NECK: Trachea midline, no gross abnormalities. CHEST: Clear to auscultation with no wheezing or rhonchi appreciated. HEART: Regular rate and rhythm. ABDOMEN: Soft. Bowel sounds are positive. No organomegaly. No guarding or rigidity. EXTREMITIES: No pedal edema. SKIN: Bilateral dryness and cracking of her hands. NEUROLOGIC: Alert and oriented x3. No focal deficits. Results CBC & Chem 7: 04/10/18 07:00 04/10/18 07:00 Labs: Abnormal Lab Results - Last 24 Hours (Table) 04/09/18 04/09/18 04/09/18 Range/Units 17:59 18:56 23:24 RBC (3.80-5.40) m/uL Hgb (11.4-16.0) gm/dL Hct (34.0-46.0) % MCV (80.0-100.0) fL RDW (11.5-15.5) % Sodium 136 L (137-145) mmol/L Chloride 114 H (98-107) mmol/L Carbon Dioxide 18 L (22-30) mmol/L Glucose 118 H (74-99) mg/dL POC Glucose (mg/dL) 136 H 127 H (75-99) mg/dL Calcium (8.4-10.2) mg/dL AST (14-36) U/L Alkaline Phosphatase (38-126) U/L Total Protein (6.3-8.2) g/dL Albumin (3.5-5.0) g/dL 04/10/18 04/10/18 04/10/18 Range/Units 05:43 07:00 07:00 RBC 2.64 L (3.80-5.40) m/uL Hgb 9.0 L D (11.4-16.0) gm/dL Hct 27.4 L (34.0-46.0) % MCV 103.8 H (80.0-100.0) fL RDW 17.8 H (11.5-15.5) % Sodium 134 L (137-145) mmol/L Chloride 116 H (98-107) mmol/L Carbon Dioxide 16 L (22-30) mmol/L Glucose 126 H (74-99) mg/dL POC Glucose (mg/dL) 131 H (75-99) mg/dL Calcium 7.7 L (8.4-10.2) mg/dL AST 10 L (14-36) U/L Alkaline Phosphatase 35 L (38-126) U/L Total Protein 3.4 L (6.3-8.2) g/dL Albumin 1.6 L (3.5-5.0) g/dL 04/10/18 Range/Units 11:56 RBC (3.80-5.40) m/uL Hgb (11.4-16.0) gm/dL Hct (34.0-46.0) % MCV (80.0-100.0) fL RDW (11.5-15.5) % Sodium (137-145) mmol/L Chloride (98-107) mmol/L Carbon Dioxide (22-30) mmol/L Glucose (74-99) mg/dL POC Glucose (mg/dL) 117 H (75-99) mg/dL Calcium (8.4-10.2) mg/dL AST (14-36) U/L Alkaline Phosphatase (38-126) U/L Total Protein (6.3-8.2) g/dL Albumin (3.5-5.0) g/dL Abdominal x-ray: report reviewed (KUB x-ray negative for bowel obstruction but with findings of generalized air fluid levels.) Assessment and Plan (1) Diarrhea Narrative/Plan: Patient with intractable loose stool after 2 doses of Xeloda, suspicion is for drug-induced effect with stool studies negative for Clostridium difficile. Patient symptoms have improved since presentation with [id number] antidiarrheal medicines. Current Visit: Yes Status: Acute Code(s): R19.7 - DIARRHEA, UNSPECIFIED SNOMED Code(s): 30077498 (2) Colon cancer Narrative/Plan: The patient is status post right hemicolectomy for stage II colon cancer. Current Visit: Yes Status: Acute Priority: High Code(s): C18.9 - MALIGNANT NEOPLASM OF COLON, UNSPECIFIED SNOMED Code(s): 257040165 Plan: Supportive care Continue liquids as tolerated Continue treatment with antidiarrheals Will add Bentyl 10 mg 3 times a day as needed for abdominal pain Continue to monitor stool output Continue antiemetics as needed for nausea Continue cholestyramine Thank you for allowing us to participate in the care of the patient we will continue to follow
[2018-04-10] MEDS: FAT EMULSION 20% 250 ML IV SCH (17:35)
[2018-04-10 17:38] LABS: Glucose,Whole Blood 113 mg/dL (75-99)
[2018-04-10 17:39] LABS: Folate, Serum 18.9 ng/mL; Iron Saturation 22.22 (12.00-45.00); Vitamin B12 >4000.0 pg/mL (211-911)
[2018-04-10 23:49] LABS: Glucose,Whole Blood 147 mg/dL (75-99)
[2018-04-11] MEDS: LOPERAMIDE 2 MG CAP PO PRN (03:36)
[2018-04-11 06:18] LABS: Glucose,Whole Blood 131 mg/dL (75-99)
[2018-04-11] MEDS: INSULIN ASPART (NovoLOG) 100 UNIT/ML VIAL SQ SCH ×3 (06:20→17:45)
[2018-04-11] MEDS: DIPHENOX-ATROP 2.5-0.025 MG 1 EACH TAB PO SCH ×4 (06:21→23:37)
[2018-04-11 07:07] LABS: Anisocytosis Slight; Basophils % (A) 0 %; Eosinophils # (A) 0.2 k/uL (0-0.7); Eosinophils % (A) 4 %; HCT 27.4 % (34.0-46.0); HGB 9.3 gm/dL (11.4-16.0); Lymphocytes # (A) 1.9 k/uL (1.0-4.8); Lymphocytes % (A) 43 %; MCH 34.6 pg (25.0-35.0); MCHC 33.8 g/dL (31.0-37.0); MCV 102.4 fL (80.0-100.0); Macrocytosis Moderate; Mean Platelet Volume 6.6; Monocytes # (A) 0.3 k/uL (0-1.0); Monocytes % (A) 7 %; Neutrophils % (A) 45 %; Platelet Count 213 k/uL (150-450); RBC 2.68 m/uL (3.80-5.40); RDW 18.6 % (11.5-15.5); WBC 4.5 k/uL (3.8-10.6)
[2018-04-11 07:20] LABS: ALT 22 U/L (9-52); AST 9 U/L (14-36); Albumin 1.7 g/dL (3.5-5.0); Alkaline Phosphatase 39 U/L (38-126); Anion Gap 1 mmol/L; Blood Urea Nitrogen 13 mg/dL (7-17); Calcium 7.5 mg/dL (8.4-10.2); Carbon Dioxide 22 mmol/L (22-30); Chloride 113 mmol/L (98-107); Glucose 104 mg/dL (74-99); Magnesium 2.1 mg/dL (1.6-2.3); Phosphorus 2.6 mg/dL (2.5-4.5); Potassium 3.8 mmol/L (3.5-5.1); Sodium 136 mmol/L (137-145); Total Bilirubin 0.3 mg/dL (0.2-1.3); Total Protein 3.7 g/dL (6.3-8.2)
[2018-04-11] MEDS: FERROUS SULFATE 325 MG TAB PO SCH (08:48)
[2018-04-11] MEDS: POTASSIUM CHLORIDE ER 20 MEQ TAB.ER PO SCH (08:48)
[2018-04-11] MEDS: SODIUM BICARBONATE TAB 650 MG TAB PO SCH ×4 (08:48→23:37)
[2018-04-11] MEDS: LISINOPRIL 10 MG TAB PO SCH (08:48)
[2018-04-11] MEDS: ASPIRIN 81 MG PO SCH (08:48)
[2018-04-11] MEDS: PANTOPRAZOLE 40 MG TABLET PO SCH (08:48)
[2018-04-11] MEDS: ENOXAPARIN 40 MG/0.4 ML SYRINGE SQ SCH (08:49)
[2018-04-11] MEDS: TAMOXIFEN 10 MG TAB PO SCH (08:50)
[2018-04-11] MEDS: MAG HYDROX/AL HYDROX/SIMETH 30 ML, LIDOCAINE VISCOUS 30 ML, diphenhydrAMINE ELIXIR 75 M... PO SCH ×12 (08:51→23:37)
[2018-04-11] MEDS: HYDROCORTISONE 1% CREAM 454 GM JAR TOPICAL SCH ×4 (08:51→23:44)
[2018-04-11] MEDS: PETROLATUM, WHITE OINT 50 GM TUBE TOPICAL SCH ×4 (08:51→23:43)
[2018-04-11] MEDS: 0.9% NACL WITH KCL 20 MEQ/L 1,000 ML IV SCH (09:09)
[2018-04-11] MEDS: CHOLESTYRAMINE (WITH SUGAR) 4 GM PACKET PO SCH ×3 (09:09→17:27)
[2018-04-11] MEDS: CYANOCOBALAMIN 500 MCG TAB PO SCH (09:10)
[2018-04-11] MEDS: CHOLECALCIFEROL 1,000 UNIT TAB PO SCH (09:10)
[2018-04-11] MEDS ORDERED: ALBUMIN HUMAN 25% 50 ML in EMPTY BAG 1 BAG IVPB ONE (09:15)
[2018-04-11] MEDS ORDERED: POTASSIUM CHLORIDE ER 20 MEQ TAB.ER PO ONE (10:15)
--- NOTE | 2018-04-11 11:18 | P.PN ---
Subjective Progress Note Date: 04/11/18 This is a 62-year-old female patient of Dr. Asif with past medical history of hypertension, breast cancer, colon cancer. Regarding colon cancer, patient underwent a right colectomy done with Dr. Kulkarni on 12/31/2017, she has now completed her second round of chemotherapy and developed severe diarrhea, vomiting and couldn't keep anything down. She has had loose diarrhea almost every half hour up to 20 times per day. She denies having any history of DVT since diagnosed with cancer. She has had weight loss over the past year both intentional and from the colon cancer. She states she saw Dr. James on Thursday and there is concern that it could be related to a urinary tract infection and she was started on doxycycline. Patient tried taking Imodium without any improvement of her loose stools. She is currently on Xeloda orally twice daily for colon cancer and tamoxifen 20 mg daily for breast cancer. She is status post left breast lumpectomy and radiation treatment. Patient came into [facility] emergency [facility] for evaluation. Patient was afebrile, heart rate in the low 100s. WBD, hemoglobin and platelets within normal limits. Sodium 128, potassium 3.9, chloride 95, CO2 20 , BUN 34 and creatinine 1.48, blood sugar 134. Patient denies history of diabetes. Liver function tests within normal limits, albumin 2.9. Stool for occult blood and WBC positive. C. difficile toxin negative. Urinalysis was cloudy, leukoesterase large, nitrate negative, bacteria rare, squamous cell 5, hyalin casts 68. Urine and stool cultures in progress. KUB reveals no evidence of bowel obstruction or free intraperitoneal air. Generalized colonic air-fluid levels suggest colonic ileus or liquid stool related to colitis or enteritis 04/07: Patient is followed by nephrology and oncology. She states she is finally feeling improved from yesterday. Case discussed with Dr. James and he recommends monitoring for another day and have not significantly improved, consider nothing by mouth and TPN for bowel rest. No antibiotics are recommended at this time. She has been afebrile, heart rate running in the 70s and 80s, blood pressure 103/63 and pulse ox 99% on room air. Sodium is up to 120, potassium 2.8, chloride 105 and CO2 18, BUN 26 and creatinine 0.97. Patient is currently on a clear liquid diet. 04/08: Patient states that she is feeling better from yesterday but continues to have stools every half to one hour. Her heart rate is improved today. She has had potassium replacement and repeat again today is only at 2.[address] Hickman is provided replacement orders for 140 mEq. Urine culture is positive for Anna only. She has been on ceftriaxone. Await further recommendations from oncology. She is currently eating very little and is on a clear liquid diet 04/09: Patient is status post potassium replacement currently at 4.3, sodium 134 , chloride 115, CO2 16, creatinine 0.71. Ionized calcium 6, phosphorus 1.6, AST 11, albumin 1.8. H. pylori came back not detected. Urine positive for Anna only. Patient had PICC line placed and was started on TPN yesterday afternoon and is nothing by mouth except for ice chips, medications, popsicles and gum. Diarrhea is slowly improving. She is continued on IV hydration. 04/10: Patient is resting comfortably in bed. Patient states that bowel movements are occurring about every 2-2-1/2 hours and she is able to make it to the bathroom now. Patient was able to get up and perform personal hygiene without any difficulties. Still experiencing some tenderness to the incisional site. Denies any pain or discomfort at this time. Patient was seen by gastroenterology and at this time we will continue to monitor diarrhea. Really C4.2, hemoglobin 9, sodium 134, potassium 4.0, BUN 13, creatinine 0.52, albumin is low as 1.6. 03/20 23: Patient is resting comfortable in bed. Patient states that she had approximately 5 episodes of diarrhea in a 24 hour period. She is able to make it to the bathroom at each time. Her last episode of diarrhea was around 4:30 this morning. Patient is not complaining of abdominal discomfort she still experiencing some tenderness to the incisional site. She has not had any nausea or vomiting. Albumin continues to be low. We will start her on a clear liquid diet to see if she is able to tolerate it if cleared by GI/oncology. We will also set up social work to assess her home care needs. Review of Systems Constitutional: Reports fatigue, Reports poor appetite, Reports weight loss, Denies anorexia, Denies chills, Denies fever, Denies weakness Eyes: denies blurred vision, denies pain Ears, nose, mouth and throat: Denies dysphagia, Denies headache, Denies hoarseness, Denies sore throat, Denies vertigo Cardiovascular: Denies chest pain, Denies dyspnea on exertion, Denies edema, Denies leg edema, Denies lightheadedness, Denies shortness of breath, Denies syncope Respiratory: Denies cough, Denies cough with sputum, Denies dyspnea, Denies excessive sputum, Denies hemoptysis, Denies home oxygen, Denies wheezing Gastrointestinal: Denies abdominal pain, Reports diarrheaimproved, Reports loss of appetite, Reports nausea, denies vomiting Genitourinary: Denies dysuria, Denies hematuria Musculoskeletal: Denies frequent falls, Denies gait dysfunction, Denies myalgias Integumentary: Denies pruritus, Denies rash, Denies wounds Neurological: Denies aphasia, Denies change in mentation, Denies change in smell /taste, Denies gait dysfunction, Denies head injury, Denies headaches, Denies numbness, Denies seizures, Denies vertigo, Denies weakness Psychiatric: Denies anxiety, Denies depression Endocrine: Denies fatigue, Denies weight change Objective - Vital Signs Vital signs: Vital Signs Temp 98.2 F 04/11/18 04:51 Pulse 104 H 04/11/18 04:51 Resp 16 04/11/18 04:51 BP 115/69 04/11/18 04:51 Pulse Ox 98 04/11/18 04:51 Intake & Output 04/10/18 04/11/18 04/11/18 18:59 06:59 18:59 Intake Total 1096.1667 2380 Output Total 3 Balance 1093.1667 2380 Weight 62.5 kg Intake: Intake, IV Titration 1036.1667 2200 Amount 0.9% NaCl with KCl 20 Meq 1200 /l 1,000 ml @ 100 mls/hr IV .Q10H [facility] Rx#: [id number] Fat Emulsion 20% 250 ml @ 160 21 mls/hr IV Q24H [facility] Rx #:[id number] Mvi, Adult No.4 with Vit 520 K 10 ml Trace (Conc-1Ml/ Dose) 1 ml In Amino Acid 5%-D15w+Lytes*E* 1,000 ml @ 83 mls/hr IV .BY [facility] Rx#: [id number] Mvi, Adult No.4 with Vit 1036.1667 K 10 ml Trace (Conc-1Ml/ Dose) 1 ml Sodium Acetate 35 meq Potassium Phosphate 20 mmol Magnesium Sulfate gm 0.5 gm In Amino Acid 5%-D15w 1,000 ml @ 83 mls/hr IV . BY DURATION [facility] Rx#: [id number] Sodium Acetate 35 meq 320 Potassium Phosphate 20 mmol Magnesium Sulfate gm 0.5 gm In Amino Acid 5%- D15w 1,000 ml @ 83 mls/hr IV .BY DURATION [facility] Rx#: [id number] Oral 60 180 Output: Urine 3 Other: Voiding Method Toilet Toilet # Voids 2 2 # Bowel Movements 1 1 - Exam Gen: This is a thin 62-year-old female. She is sitting up in bed in no acute distress. Appears younger than stated age HEENT: Head is atraumatic, normocephalic. Pupils equal, round. Sclerae is anicteric. NECK: Supple. No JVD. No lymphadenopathy. No thyromegaly. LUNGS: Clear to auscultation. No wheezes or rhonchi. No intercostal retractions. HEART: Regular rate and rhythm. No murmur. ABDOMEN: Soft. Bowel sounds are present. No masses. + tenderness to incision. No hepatosplenomegaly. EXTREMITIES: No pedal edema. No calf tenderness. Dorsalis pedis +2 bilaterally. NEUROLOGICAL: Patient is awake, alert and oriented x3. Cranial nerves 2 through 12 are grossly intact. - Labs CBC & Chem 7: 04/11/18 06:30 04/11/18 06:30 Labs: Abnormal Lab Results - Last 24 Hours (Table) 04/10/18 04/10/18 04/10/18 Range/Units 07:00 11:56 17:37 RBC (3.80-5.40) m/uL Hgb (11.4-16.0) gm/dL Hct (34.0-46.0) % MCV (80.0-100.0) fL RDW (11.5-15.5) % Sodium (137-145) mmol/L Chloride (98-107) mmol/L Glucose (74-99) mg/dL POC Glucose (mg/dL) 117 H 113 H (75-99) mg/dL Calcium (8.4-10.2) mg/dL Iron 40 L (50-170) ug/dL TIBC 180 L (228-460) ug/dL AST (14-36) U/L Total Protein (6.3-8.2) g/dL Albumin (3.5-5.0) g/dL Vitamin B12 >4000.0 H (211-911) pg/mL 04/10/18 04/11/18 04/11/18 Range/Units 23:37 06:16 06:30 RBC (3.80-5.40) m/uL Hgb (11.4-16.0) gm/dL Hct (34.0-46.0) % MCV (80.0-100.0) fL RDW (11.5-15.5) % Sodium 136 L (137-145) mmol/L Chloride 113 H (98-107) mmol/L Glucose 104 H (74-99) mg/dL POC Glucose (mg/dL) 147 H 131 H (75-99) mg/dL Calcium 7.5 L (8.4-10.2) mg/dL Iron (50-170) ug/dL TIBC (228-460) ug/dL AST 9 L (14-36) U/L Total Protein 3.7 L (6.3-8.2) g/dL Albumin 1.7 L (3.5-5.0) g/dL Vitamin B12 (211-911) pg/mL 04/11/18 Range/Units 06:30 RBC 2.68 L (3.80-5.40) m/uL Hgb 9.3 L (11.4-16.0) gm/dL Hct 27.4 L (34.0-46.0) % MCV 102.4 H (80.0-100.0) fL RDW 18.6 H (11.5-15.5) % Sodium (137-145) mmol/L Chloride (98-107) mmol/L Glucose (74-99) mg/dL POC Glucose (mg/dL) (75-99) mg/dL Calcium (8.4-10.2) mg/dL Iron (50-170) ug/dL TIBC (228-460) ug/dL AST (14-36) U/L Total Protein (6.3-8.2) g/dL Albumin (3.5-5.0) g/dL Vitamin B12 (211-911) pg/mL Assessment and Plan Plan: 1. Acute kidney injury and dehydration secondary to nausea, vomiting and diarrhea. Patient is status post 2 L of IV fluid currently on 100 mL per hour. Continue Imodium for diarrhea, Zofran for nausea. Consult with nephrology appreciated. We'll consult social work for possible home care needs. 2. Colitis. Same as #1. Consult with gastroenterology appreciated. Increase to a full liquid diet if tolerated will increase to a soft diet. 3. History of colon cancer status post right colectomy and chemotherapy. Consult with Dr. James appreciated. Patient has been on Xeloda. 4. History of breast cancer status post lumpectomy and radiation. Continue tamoxifen. 5. Nausea, vomiting, diarrhea secondary to colitis from Xeloda. Consult with Dr. James appreciated. Continue IV fluids, Questran, Imodium. 6. Hypertension. Continue lisinopril 10 mg daily will be resumed. 7. Acute urinary tract infection treated with doxycycline as an outpatient. Continue ceftriaxone. 8. Hyponatremia secondary to dehydration. Continue IV fluids. 9. DVT prophylaxis. Lovenox daily. 10. GI prophylaxis. Protonix. 11. Hypokalemia secondary to diarrhea. Replaced 12. Hypercalcemia secondary to metabolic acidosis. 13. Hypophosphatemia secondary to decreased oral intake. Replaced Discharge plan: Return home most likely Thursday possibly with home care Impression and plan of care have been directed as dictated by the signing physician. Kimberly Mike nurse practitioner acting as scribe for signing physician
[2018-04-11 12:35] LABS: Glucose,Whole Blood 118 mg/dL (75-99)
--- NOTE | 2018-04-11 17:04 | P.PN ---
Subjective Progress Note Date: 04/11/18 Principal diagnosis: Diarrhea on Xeloda No BM since 4am, improving and will increase advance diet today Objective - Vital Signs Vital signs: Vital Signs Temp 97.9 F 04/11/18 11:30 Pulse 104 H 04/11/18 15:53 Resp 18 04/11/18 15:53 BP 115/71 04/11/18 11:30 Pulse Ox 100 04/11/18 11:30 Intake & Output 04/10/18 04/11/18 04/11/18 18:59 06:59 18:59 Intake Total 1096.1667 3405.1667 2866 Output Total 3 3 Balance 1093.1667 3405.1667 2863 Weight 62.5 kg Intake: Intake, IV Titration 1036.1667 3225.1667 2146 Amount 0.9% NaCl with KCl 20 Meq 1200 800 /l 1,000 ml @ 100 mls/hr IV .Q10H [facility] Rx#: [id number] Albumin Human 25% 50 ml 50 In Empty Bag 1 bag @ 50 mls/hr IVPB ONCE ONE Rx#: [id number] Amino Acid 5%-D15w+Lytes* 332 E* 1,000 ml @ 83 mls/hr IV .BY DURATION [facility] Rx#: [id number] Fat Emulsion 20% 250 ml @ 160 250 21 mls/hr IV Q24H [facility] Rx #:[id number] Mvi, Adult No.4 with Vit 520 664 K 10 ml Trace (Conc-1Ml/ Dose) 1 ml In Amino Acid 5%-D15w+Lytes*E* 1,000 ml @ 83 mls/hr IV .BY DURATION [facility] Rx#: [id number] Mvi, Adult No.4 with Vit 1036.1667 K 10 ml Trace (Conc-1Ml/ Dose) 1 ml Sodium Acetate 35 meq Potassium Phosphate 20 mmol Magnesium Sulfate gm 0.5 gm In Amino Acid 5%-D15w 1,000 ml @ 83 mls/hr IV . BY DURATION [facility] Rx#: [id number] Sodium Acetate 35 meq 1345.1667 Potassium Phosphate 20 mmol Magnesium Sulfate gm 0.5 gm In Amino Acid 5%- D15w 1,000 ml @ 83 mls/hr IV .BY DURATION [facility] Rx#: [id number] cefTRIAXone 2 gm In 50 Sodium Chloride 0.9% 50 ml @ 100 mls/hr IVPB Q24HR [facility] Rx#:[id number] Oral 60 180 720 Output: Urine 3 3 Other: Voiding Method Toilet Toilet Toilet # Voids 2 2 5 # Bowel Movements 1 1 - Exam - Constitutional General appearance: average body habitus, cooperative, no acute distress - EENT ulcerations noted on tongue, bilaterally, tongue is smooth, reddened Eyes: anicteric sclerae, EOMI ENT: no hard of hearing, hearing grossly normal, no NA/AT, no other, no pharyngeal erythema, no thrush, no tonsillar exudates, no tonsillar swelling - Neck Neck: no lymphadenopathy - Respiratory Respiratory: bilateral: CTA - Cardiovascular Rhythm: regular Heart sounds: normal: S1, S2 Abnormal Heart Sounds: no systolic murmur, no diastolic murmur, no rub, no S3 Gallop, no S4 Gallop, no click, no other leg Peripheral Edema: bilateral: None - Gastrointestinal slightly hyperactive BS, mild generalized tenderness with deeper palpation, no mass, organomegaly General gastrointestinal: no absent bowel sounds, no decreased bowel sounds, no distended, no hepatomegaly, no hyperactive bowel sounds, normal bowel sounds, no organomegaly, no rigid, no scaphoid, soft, no splenomegaly, tenderness, no umbilical hernia, no ventral hernia - Integumentary Grade 2 PPE on hands, feet 0-1 - Neurologic Neurologic: CNII-XII intact - Musculoskeletal Musculoskeletal: strength equal bilaterally - Psychiatric Psychiatric: A&O x's 3, appropriate affect, intact judgment & insight - Labs CBC & Chem 7: 04/11/18 06:30 04/11/18 06:30 Labs: Abnormal Lab Results - Last 24 Hours (Table) 04/10/18 04/10/18 04/10/18 Range/Units 07:00 17:37 23:37 RBC (3.80-5.40) m/uL Hgb (11.4-16.0) gm/dL Hct (34.0-46.0) % MCV (80.0-100.0) fL RDW (11.5-15.5) % Sodium (137-145) mmol/L Chloride (98-107) mmol/L Glucose (74-99) mg/dL POC Glucose (mg/dL) 113 H 147 H (75-99) mg/dL Calcium (8.4-10.2) mg/dL Iron 40 L (50-170) ug/dL TIBC 180 L (228-460) ug/dL AST (14-36) U/L Total Protein (6.3-8.2) g/dL Albumin (3.5-5.0) g/dL Vitamin B12 >4000.0 H (211-911) pg/mL 04/11/18 04/11/18 04/11/18 Range/Units 06:16 06:30 06:30 RBC 2.68 L (3.80-5.40) m/uL Hgb 9.3 L (11.4-16.0) gm/dL Hct 27.4 L (34.0-46.0) % MCV 102.4 H (80.0-100.0) fL RDW 18.6 H (11.5-15.5) % Sodium 136 L (137-145) mmol/L Chloride 113 H (98-107) mmol/L Glucose 104 H (74-99) mg/dL POC Glucose (mg/dL) 131 H (75-99) mg/dL Calcium 7.5 L (8.4-10.2) mg/dL Iron (50-170) ug/dL TIBC (228-460) ug/dL AST 9 L (14-36) U/L Total Protein 3.7 L (6.3-8.2) g/dL Albumin 1.7 L (3.5-5.0) g/dL Vitamin B12 (211-911) pg/mL 04/11/18 Range/Units 12:32 RBC (3.80-5.40) m/uL Hgb (11.4-16.0) gm/dL Hct (34.0-46.0) % MCV (80.0-100.0) fL RDW (11.5-15.5) % Sodium (137-145) mmol/L Chloride (98-107) mmol/L Glucose (74-99) mg/dL POC Glucose (mg/dL) 118 H (75-99) mg/dL Calcium (8.4-10.2) mg/dL Iron (50-170) ug/dL TIBC (228-460) ug/dL AST (14-36) U/L Total Protein (6.3-8.2) g/dL Albumin (3.5-5.0) g/dL Vitamin B12 (211-911) pg/mL Assessment and Plan Plan: Assessment and Plan Drug-induced diarrhea - Cont IV fluids, with added potassium. - Clear liquids for now, diet will be advanced based on pt symptoms - If no improvements tomorrow will add PPM or TPN for short interval and NPO to allow complete bowel rest, discussed with Dr. Garza - C-diff negative. Pt on imodium, cont to alternate with lomotil, attempt Questran when able to tolerate - Improving since Thursday, advance to full liquids today Drug-induced mucositis - Kools solution and salt and soda - Improving Palmar plantar erythrodysaesthesia due to cytotoxic therapy - Aquaphor with topical steroid - Improving Breast cancer - Cont tamoxifen Colon cancer - Pt is s/p 2nd 14 day cycle of Xeloda with drug toxicities diarrhea, mucositis and PPE. Drug will be held until resolution of SE to grade 1. Dose will be reduced for cycle 3. Typically, it can take at least 3-5 days on discontinuation of xeloda for SE to resolve. Supportive treatments ordered - Likely will need to switch therapy as not tolerating Dehydration - IVF and clear liquids ordered for now, K+ added to IVF. Electrolyte depletion Severe Hypokalemia, Hypophosphatemia, Hypercalcemia - Potassium improved supp for phos given Moderate Protein Malnutrition from persistent Diarrhea and inability to absorb - Status Post Picc - TPN - Advance today - Daily and close monitoring CMP, Mg, and Phos. Urine Culture Positive for Anna - Diflucan 200mg po x1 ordered Plan: - Advance diet to full liquids, discussed with Dr. Garza. - Continue to monitor Physician Attestation: I have completed the full history and physical and devloped the complete impression and plan and agree with above by Mia Colmenares NP, Dictated as a scribe
[2018-04-11] MEDS: FAT EMULSION 20% 250 ML IV SCH (17:29)
[2018-04-11 17:40] LABS: Glucose,Whole Blood 106 mg/dL (75-99)
[2018-04-11] MEDS: DICYCLOMINE 10 MG CAP PO PRN (17:45)
[2018-04-11] MEDS: ONDANSETRON 4 MG/2 ML VIAL IVP PRN ×2 (18:10→23:40)
--- NOTE | 2018-04-11 19:40 | P.PN ---
Subjective Progress Note Date: 04/11/18 Principal diagnosis: diarrhea on Xeloda Patient seen this morning sitting in bed. Reports only 2 bowel movements since last night. No blood per rectum reported. She has tolerated liquids. Objective - Vital Signs Vital signs: Vital Signs Temp 97.9 F 04/11/18 11:30 Pulse 104 H 04/11/18 15:53 Resp 18 04/11/18 15:53 BP 115/71 04/11/18 11:30 Pulse Ox 100 04/11/18 11:30 Intake & Output 04/11/18 04/11/18 04/12/18 06:59 18:59 06:59 Intake Total 3405.1667 2926 Output Total 3 Balance 3405.1667 2923 Weight 62.5 kg Intake: Intake, IV Titration 3225.1667 2146 Amount 0.9% NaCl with KCl 20 Meq 1200 800 /l 1,000 ml @ 100 mls/hr IV .Q10H [facility] Rx#: [id number] Albumin Human 25% 50 ml 50 In Empty Bag 1 bag @ 50 mls/hr IVPB ONCE ONE Rx#: [id number] Amino Acid 5%-D15w+Lytes* 332 E* 1,000 ml @ 83 mls/hr IV .BY DURATION [facility] Rx#: [id number] Fat Emulsion 20% 250 ml @ 160 250 21 mls/hr IV Q24H [facility] Rx #:[id number] Mvi, Adult No.4 with Vit 520 664 K 10 ml Trace (Conc-1Ml/ Dose) 1 ml In Amino Acid 5%-D15w+Lytes*E* 1,000 ml @ 83 mls/hr IV .BY DURATION [facility] Rx#: [id number] Sodium Acetate 35 meq 1345.1667 Potassium Phosphate 20 mmol Magnesium Sulfate gm 0.5 gm In Amino Acid 5%- D15w 1,000 ml @ 83 mls/hr IV .BY DURATION [facility] Rx#: [id number] cefTRIAXone 2 gm In 50 Sodium Chloride 0.9% 50 ml @ 100 mls/hr IVPB Q24HR [facility] Rx#:[id number] Oral 180 780 Output: Urine 3 Other: Voiding Method Toilet Toilet # Voids 2 5 # Bowel Movements 1 - Exam On physical examination, patient appears comfortable in no apparent distress. HEAD: Normocephalic, atraumatic. EYES: No scleral icterus. No conjunctival injection. MOUTH: No lesions, tongue midline. NECK: Trachea midline, no gross abnormalities. CHEST: Clear to auscultation with no wheezing or rhonchi appreciated. HEART: Regular rate and rhythm. ABDOMEN: Soft, obese. Bowel sounds are positive. No organomegaly. No guarding or rigidity. EXTREMITIES: No pedal edema. SKIN: No rashes, no jaundice. NEUROLOGIC: Alert and oriented x3. No focal deficits. - Labs CBC & Chem 7: 04/11/18 06:30 04/11/18 06:30 Labs: Abnormal Lab Results - Last 24 Hours (Table) 04/10/18 04/11/18 04/11/18 Range/Units 23:37 06:16 06:30 RBC (3.80-5.40) m/uL Hgb (11.4-16.0) gm/dL Hct (34.0-46.0) % MCV (80.0-100.0) fL RDW (11.5-15.5) % Sodium 136 L (137-145) mmol/L Chloride 113 H (98-107) mmol/L Glucose 104 H (74-99) mg/dL POC Glucose (mg/dL) 147 H 131 H (75-99) mg/dL Calcium 7.5 L (8.4-10.2) mg/dL AST 9 L (14-36) U/L Total Protein 3.7 L (6.3-8.2) g/dL Albumin 1.7 L (3.5-5.0) g/dL 04/11/18 04/11/18 04/11/18 Range/Units 06:30 12:32 17:38 RBC 2.68 L (3.80-5.40) m/uL Hgb 9.3 L (11.4-16.0) gm/dL Hct 27.4 L (34.0-46.0) % MCV 102.4 H (80.0-100.0) fL RDW 18.6 H (11.5-15.5) % Sodium (137-145) mmol/L Chloride (98-107) mmol/L Glucose (74-99) mg/dL POC Glucose (mg/dL) 118 H 106 H (75-99) mg/dL Calcium (8.4-10.2) mg/dL AST (14-36) U/L Total Protein (6.3-8.2) g/dL Albumin (3.5-5.0) g/dL Assessment and Plan (1) Diarrhea Narrative/Plan: Patient with intractable loose stool after 2 doses of Xeloda, suspicion is for drug-induced effect with stool studies negative for Clostridium difficile. Patient symptoms have improved since presentation with [id number] antidiarrheal medicines. Current Visit: Yes Status: Acute Code(s): R19.7 - DIARRHEA, UNSPECIFIED SNOMED Code(s): 37417623 (2) Colon cancer Narrative/Plan: The patient is status post right hemicolectomy for stage II colon cancer. Current Visit: Yes Status: Acute Priority: High Code(s): C18.9 - MALIGNANT NEOPLASM OF COLON, UNSPECIFIED SNOMED Code(s): 073403684 Plan: Supportive care Diet to be advanced to full liquids as tolerated Continue treatment with antidiarrheals Bentyl 10 mg 3 times a day as needed for abdominal pain Continue to monitor stool output Continue antiemetics as needed for nausea Continue cholestyramine Thank you for allowing us to participate in the care of the patient we will continue to follow
[2018-04-11 23:37] LABS: Glucose,Whole Blood 119 mg/dL (75-99)
[2018-04-12] MEDS: 0.9% NACL WITH KCL 20 MEQ/L 1,000 ML IV SCH ×4 (00:29→22:00)
[2018-04-12] MEDS: INSULIN ASPART (NovoLOG) 100 UNIT/ML VIAL SQ SCH ×4 (00:30→17:38)
[2018-04-12] MEDS: LOPERAMIDE 2 MG CAP PO PRN ×3 (02:03→21:41)
[2018-04-12 06:19] LABS: Glucose,Whole Blood 115 mg/dL (75-99)
[2018-04-12] MEDS: DIPHENOX-ATROP 2.5-0.025 MG 1 EACH TAB PO SCH ×3 (06:20→17:41)
[2018-04-12] MEDS: ONDANSETRON 4 MG/2 ML VIAL IVP PRN ×3 (07:13→21:38)
[2018-04-12 07:41] LABS: Anisocytosis Slight; Basophils % (A) 0 %; Eosinophils # (A) 0.2 k/uL (0-0.7); Eosinophils % (A) 3 %; HCT 28.7 % (34.0-46.0); HGB 9.4 gm/dL (11.4-16.0); Lymphocytes # (A) 1.8 k/uL (1.0-4.8); Lymphocytes % (A) 39 %; MCH 33.7 pg (25.0-35.0); MCHC 32.7 g/dL (31.0-37.0); MCV 103.2 fL (80.0-100.0); Macrocytosis Moderate; Mean Platelet Volume 7.1; Monocytes # (A) 0.4 k/uL (0-1.0); Monocytes % (A) 9 %; Neutrophils # (A) 2.3 k/uL (1.3-7.7); Neutrophils % (A) 47 %; Platelet Count 204 k/uL (150-450); RBC 2.78 m/uL (3.80-5.40); RDW 17.5 % (11.5-15.5); WBC 4.8 k/uL (3.8-10.6)
[2018-04-12 08:14] LABS: Ionized Calcium 5.3 mg/dL (4.5-5.3)
[2018-04-12 08:24] LABS: Anion Gap 3 mmol/L; Blood Urea Nitrogen 13 mg/dL (7-17); Carbon Dioxide 21 mmol/L (22-30); Chloride 114 mmol/L (98-107); Glucose 98 mg/dL (74-99); Potassium 4.3 mmol/L (3.5-5.1); Sodium 138 mmol/L (137-145)
[2018-04-12 08:25] LABS: ALT 26 U/L (9-52); AST 14 U/L (14-36); Alkaline Phosphatase 44 U/L (38-126); Magnesium 1.9 mg/dL (1.6-2.3); Phosphorus 2.7 mg/dL (2.5-4.5); Total Bilirubin 0.4 mg/dL (0.2-1.3); Total Protein 4.1 g/dL (6.3-8.2)
--- NOTE | 2018-04-12 08:28 | P.PN ---
Subjective Patient is seen in follow-up for acute kidney injury which has resolved. She tried full liquid diet yesterday and developed diarrhea again. She is now nothing by mouth. Admits to good urine output. She is maintained on TPN. She is also on IV fluids running at 100 mL an hour. No chest pain or shortness of breath. Vital signs are stable. General: The patient appeared well nourished and normally developed. HEENT: Head exam is unremarkable. Neck is without jugular venous distension. LUNGS: Lungs are clear to auscultation and percussion. Breath sounds decreased. HEART: Rate and Rhythm are regular. First and second heart sounds normal. No murmurs, rubs or gallops. ABDOMEN: Abdominal exam reveals normal bowel sounds. Non-tender and non- distended. No evidence of peritonitis. EXTREMITITES: No clubbing, cyanosis, or edema. Objective - Vital Signs Vital signs: Vital Signs Temp 97.6 F 04/12/18 05:00 Pulse 82 04/12/18 05:00 Resp 16 04/12/18 05:00 BP 106/67 04/12/18 05:00 Pulse Ox 99 04/12/18 05:00 Intake & Output 04/11/18 04/12/18 04/12/18 18:59 06:59 18:59 Intake Total 3962.1667 940 Output Total 3 Balance 3959.1667 940 Weight 62.6 kg Intake: Intake, IV Titration 3182.1667 820 Amount 0.9% NaCl with KCl 20 Meq 800 400 /l 1,000 ml @ 100 mls/hr IV .Q10H [facility] Rx#: [id number] Albumin Human 25% 50 ml 50 In Empty Bag 1 bag @ 50 mls/hr IVPB ONCE ONE Rx#: [id number] Amino Acid 5%-D15w+Lytes* 332 340 E* 1,000 ml @ 83 mls/hr IV .BY DURATION [facility] Rx#: [id number] Fat Emulsion 20% 250 ml @ 250 80 21 mls/hr IV Q24H [facility] Rx #:[id number] Mvi, Adult No.4 with Vit 664 K 10 ml Trace (Conc-1Ml/ Dose) 1 ml In Amino Acid 5%-D15w+Lytes*E* 1,000 ml @ 83 mls/hr IV .BY DURATION [facility] Rx#: [id number] Mvi, Adult No.4 with Vit 1036.1667 K 10 ml Trace (Conc-1Ml/ Dose) 1 ml Sodium Acetate 35 meq Potassium Phosphate 20 mmol Magnesium Sulfate gm 0.5 gm In Amino Acid 5%-D15w 1,000 ml @ 83 mls/hr IV . BY DURATION [facility] Rx#: [id number] cefTRIAXone 2 gm In 50 Sodium Chloride 0.9% 50 ml @ 100 mls/hr IVPB Q24HR [facility] Rx#:[id number] Oral 780 120 Output: Urine 3 Other: Voiding Method Toilet Toilet # Voids 5 2 # Bowel Movements 2 - Labs CBC & Chem 7: 04/12/18 07:21 04/11/18 06:30 Labs: Abnormal Lab Results - Last 24 Hours (Table) 04/11/18 04/11/18 04/11/18 Range/Units 12:32 17:38 23:36 RBC (3.80-5.40) m/uL Hgb (11.4-16.0) gm/dL Hct (34.0-46.0) % MCV (80.0-100.0) fL RDW (11.5-15.5) % POC Glucose (mg/dL) 118 H 106 H 119 H (75-99) mg/dL 04/12/18 04/12/18 Range/Units 06:17 07:21 RBC 2.78 L (3.80-5.40) m/uL Hgb 9.4 L (11.4-16.0) gm/dL Hct 28.7 L (34.0-46.0) % MCV 103.2 H (80.0-100.0) fL RDW 17.5 H (11.5-15.5) % POC Glucose (mg/dL) 115 H (75-99) mg/dL Assessment and Plan Plan: Assessment: 1. Acute kidney injury mostly prerenal secondary to intravascular volume depletion from diarrhea improved with IV hydration. GFR back to baseline. 2. Colon cancer status post right hemicolectomy. 3. Metabolic acidosis secondary to IV fluids and GI losses maintain on oral sodium bicarbonate. 4. Hypokalemia from poor oral intake maintained on potassium supplementation. 5. Hypophosphatemia and hypomagnesemia status post placement. Plan: Maintain TPN. Decreased rate of normal saline to 50 mL an hour. Repeat electrolytes in the morning.
[2018-04-12] MEDS: ENOXAPARIN 40 MG/0.4 ML SYRINGE SQ SCH (08:57)
[2018-04-12] MEDS: PANTOPRAZOLE 40 MG TABLET PO SCH (08:57)
[2018-04-12] MEDS: LISINOPRIL 10 MG TAB PO SCH (08:57)
[2018-04-12] MEDS: MAG HYDROX/AL HYDROX/SIMETH 30 ML, LIDOCAINE VISCOUS 30 ML, diphenhydrAMINE ELIXIR 75 M... PO SCH ×12 (08:57→21:41)
[2018-04-12] MEDS: SODIUM BICARBONATE TAB 650 MG TAB PO SCH ×4 (08:57→21:38)
[2018-04-12] MEDS: POTASSIUM CHLORIDE ER 20 MEQ TAB.ER PO SCH (08:57)
[2018-04-12] MEDS: FERROUS SULFATE 325 MG TAB PO SCH (08:57)
[2018-04-12] MEDS: ASPIRIN 81 MG PO SCH (08:58)
[2018-04-12] MEDS: TAMOXIFEN 10 MG TAB PO SCH (08:58)
[2018-04-12] MEDS: PETROLATUM, WHITE OINT 50 GM TUBE TOPICAL SCH ×4 (08:58→21:38)
[2018-04-12] MEDS: CHOLESTYRAMINE (WITH SUGAR) 4 GM PACKET PO SCH ×3 (08:58→17:41)
[2018-04-12] MEDS: HYDROCORTISONE 1% CREAM 454 GM JAR TOPICAL SCH ×4 (08:59→21:38)
[2018-04-12] MEDS ORDERED: ONDANSETRON 4 MG/2 ML VIAL IVP PRN (09:00)
--- NOTE | 2018-04-12 11:06 | P.PN ---
Subjective Progress Note Date: 04/12/18 Principal diagnosis: Dehydration, intractable diarrhea. Secondary to cytotoxic drugs In follow-up today patient states inability to tolerate full liquid diet, she had diarrhea recur within 15-20 minutes of consuming some pudding, she has been placed back on nothing by mouth. She states her stomach feels much better now. We will possibly attempt to clear liquid diet with dinner. Patient has not had any fevers, vomiting, cough, abdominal pain or cramping, dysuria, she is fully ambulatory. Skin on her hands has progressively worsened since admission but, is now stable and peeling, moderate discomfort. She denies any symptoms of the same on her feet. Her oral mucosa is stable and slightly improved. Objective - Vital Signs Vital signs: Vital Signs Temp 97.6 F 04/12/18 05:00 Pulse 82 04/12/18 05:00 Resp 16 04/12/18 05:00 BP 106/67 04/12/18 05:00 Pulse Ox 99 04/12/18 05:00 Intake & Output 04/11/18 04/12/18 04/12/18 18:59 06:59 18:59 Intake Total 3962.1667 940 Output Total 3 Balance 3959.1667 940 Weight 62.6 kg Intake: Intake, IV Titration 3182.1667 820 Amount 0.9% NaCl with KCl 20 Meq 800 400 /l 1,000 ml @ 100 mls/hr IV .Q10H [facility] Rx#: [id number] Albumin Human 25% 50 ml 50 In Empty Bag 1 bag @ 50 mls/hr IVPB ONCE ONE Rx#: [id number] Amino Acid 5%-D15w+Lytes* 332 340 E* 1,000 ml @ 83 mls/hr IV .BY DURATION [facility] Rx#: [id number] Fat Emulsion 20% 250 ml @ 250 80 21 mls/hr IV Q24H [facility] Rx #:[id number] Mvi, Adult No.4 with Vit 664 K 10 ml Trace (Conc-1Ml/ Dose) 1 ml In Amino Acid 5%-D15w+Lytes*E* 1,000 ml @ 83 mls/hr IV .BY DURATION [facility] Rx#: [id number] Mvi, Adult No.4 with Vit 1036.1667 K 10 ml Trace (Conc-1Ml/ Dose) 1 ml Sodium Acetate 35 meq Potassium Phosphate 20 mmol Magnesium Sulfate gm 0.5 gm In Amino Acid 5%-D15w 1,000 ml @ 83 mls/hr IV . BY DURATION [facility] Rx#: [id number] cefTRIAXone 2 gm In 50 Sodium Chloride 0.9% 50 ml @ 100 mls/hr IVPB Q24HR [facility] Rx#:[id number] Oral 780 120 Output: Urine 3 Other: Voiding Method Toilet Toilet # Voids 5 2 # Bowel Movements 2 - Constitutional General appearance: Present: average body habitus, cooperative, no acute distress - EENT EENT Comment(s): Mild left buccal erythema, no thrush or ulcers Eyes: Present: anicteric sclerae, EOMI ENT: Present: hearing grossly normal - Respiratory Respiratory: bilateral: CTA - Cardiovascular Heart sounds: normal: S1, S2 - Peripheral edema leg Peripheral Edema: bilateral: None - Gastrointestinal General gastrointestinal: Present: normal bowel sounds, soft Localized gastrointestinal: tender: diffuse (Mild, no rebound) - Integumentary Integumentary Comment(s): Moderate PPE on the hands, no nail toxicities apparent at this time - Neurologic Neurologic: Present: CNII-XII intact - Musculoskeletal Musculoskeletal: Present: strength equal bilaterally - Psychiatric Psychiatric: Present: A&O x's 3, appropriate affect, intact judgment & insight - Labs CBC & Chem 7: 04/12/18 07:21 04/12/18 07:21 Labs: Abnormal Lab Results - Last 24 Hours (Table) 04/11/18 04/11/18 04/11/18 Range/Units 12:32 17:38 23:36 RBC (3.80-5.40) m/uL Hgb (11.4-16.0) gm/dL Hct (34.0-46.0) % MCV (80.0-100.0) fL RDW (11.5-15.5) % Chloride (98-107) mmol/L Carbon Dioxide (22-30) mmol/L Creatinine (0.52-1.04) mg/dL POC Glucose (mg/dL) 118 H 106 H 119 H (75-99) mg/dL Calcium (8.4-10.2) mg/dL Total Protein (6.3-8.2) g/dL Albumin (3.5-5.0) g/dL 04/12/18 04/12/18 04/12/18 Range/Units 06:17 07:21 07:21 RBC 2.78 L (3.80-5.40) m/uL Hgb 9.4 L (11.4-16.0) gm/dL Hct 28.7 L (34.0-46.0) % MCV 103.2 H (80.0-100.0) fL RDW 17.5 H (11.5-15.5) % Chloride 114 H (98-107) mmol/L Carbon Dioxide 21 L (22-30) mmol/L Creatinine 0.50 L (0.52-1.04) mg/dL POC Glucose (mg/dL) 115 H (75-99) mg/dL Calcium 8.0 L (8.4-10.2) mg/dL Total Protein 4.1 L (6.3-8.2) g/dL Albumin 2.0 L (3.5-5.0) g/dL Assessment and Plan (1) Drug-induced diarrhea Narrative/Plan: Cont IV fluids, TPN. Patient placed back on nothing by mouth, will attempt clear liquids only with dinner C-diff negative, antidiarrheals ordered Topicals for skin toxicities Supportive care for mucous membranes. 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 Continue topical treatments. Current Visit: Yes Status: Acute Priority: High Code(s): L27.1 - LOC SKIN ERUPTION DUE TO DRUGS AND MEDS TAKEN INTERNALLY; T45.1X5A - ADVERSE EFFECT OF ANTINEOPLASTIC AND IMMUNOSUP DRUGS, INIT SNOMED Code(s): 858976254 (4) Breast cancer Narrative/Plan: Xeloda was prescribed for patient. Dose adjustments or a change in therapy will be considered. No treatment until current condition has resolved satisfactorily Current Visit: No Status: Chronic Priority: Medium Code(s): C50.919 - MALIGNANT NEOPLASM OF UNSP SITE OF UNSPECIFIED FEMALE BREAST SNOMED Code(s): 765385652 (5) Colon cancer Current Visit: Yes Status: Acute Priority: High Code(s): C18.9 - MALIGNANT NEOPLASM OF COLON, UNSPECIFIED SNOMED Code(s): 369169814 (6) Dehydration Narrative/Plan: Patient is being hydrated and being supported nutritionally with TPN. This is not felt to be necessary long-term. Once patient's gastrointestinal toxicities have resolved patient should have no difficulties resuming her regular diet Current Visit: Yes Status: Acute Priority: High Code(s): E86.0 - DEHYDRATION SNOMED Code(s): 74909901 (7) Electrolyte depletion Narrative/Plan: Supplementation as needed. Patient is on TPN. Current Visit: Yes Status: Acute Priority: Medium Code(s): E87.8 - OTH DISORDERS OF ELECTROLYTE AND FLUID BALANCE, NEC SNOMED Code(s): 96870497 (8) Antineoplastic chemotherapy induced anemia Narrative/Plan: Iron studies suggestive of reactive/inflammation condition as ferritin is >200. No supplement at this time. Transfuse for hemoglobin less than 7. No transfusion needed today. Current Visit: Yes Status: Acute Priority: Medium Code(s): D64.81 - ANEMIA DUE TO ANTINEOPLASTIC CHEMOTHERAPY; T45.1X5A - ADVERSE EFFECT OF ANTINEOPLASTIC AND IMMUNOSUP DRUGS, INIT SNOMED Code(s): 804978343 (9) Diarrhea Narrative/Plan: Secondary to Xeloda. Patient is slow to recover but, her white blood cell count is starting to improve and this should help the diarrhea. Patient was placed back on nothing by mouth, planning for slow dietary advancement, clear liquids with dinner will be attempted. Current Visit: Yes Status: Acute Priority: High Code(s): R19.7 - DIARRHEA , UNSPECIFIED SNOMED Code(s): 08443241 Plan: Doctor attests: I performed a history and physical examination of this patient with dictator, developed impression and plan of care of patient. I agree with dictators note, documented as a scribe
[2018-04-12 11:12] LABS: Glucose,Whole Blood 114 mg/dL (75-99)
[2018-04-12] MEDS: CHOLECALCIFEROL 1,000 UNIT TAB PO SCH (11:22)
[2018-04-12] MEDS: CYANOCOBALAMIN 500 MCG TAB PO SCH (11:22)
[2018-04-12] MEDS: MAGNESIUM SULFATE-D5W PMX 1 GM in DEXTROSE/WATER 1 100ML.BAG IVPB SCH ×2 (11:23→13:06)
[2018-04-12] MEDS: DICYCLOMINE 10 MG CAP PO PRN ×2 (15:17→22:45)
[2018-04-12 17:22] LABS: Glucose,Whole Blood 129 mg/dL (75-99)
[2018-04-12] MEDS: FAT EMULSION 20% 250 ML IV SCH (17:41)
[2018-04-12] MEDS: ACETAMINOPHEN TAB 325 MG TAB PO PRN (19:07)
[2018-04-13 00:15] LABS: Glucose,Whole Blood 138 mg/dL (75-99)
[2018-04-13] MEDS: INSULIN ASPART (NovoLOG) 100 UNIT/ML VIAL SQ SCH ×4 (00:24→19:41)
[2018-04-13] MEDS: DIPHENOX-ATROP 2.5-0.025 MG 1 EACH TAB PO SCH ×5 (00:27→23:53)
[2018-04-13] MEDS: LOPERAMIDE 2 MG CAP PO PRN ×3 (04:47→15:01)
[2018-04-13] MEDS: ONDANSETRON 4 MG/2 ML VIAL IVP PRN (04:47)
[2018-04-13 06:06] LABS: Glucose,Whole Blood 128 mg/dL (75-99)
[2018-04-13 09:01] LABS: Anisocytosis Slight; Basophils % (A) 0 %; Eosinophils # (A) 0.1 k/uL (0-0.7); Eosinophils % (A) 2 %; HCT 29.3 % (34.0-46.0); HGB 9.7 gm/dL (11.4-16.0); Lymphocytes # (A) 1.3 k/uL (1.0-4.8); Lymphocytes % (A) 25 %; MCH 34.2 pg (25.0-35.0); MCV 103.5 fL (80.0-100.0); Macrocytosis Moderate; Mean Platelet Volume 6.7; Monocytes # (A) 0.5 k/uL (0-1.0); Monocytes % (A) 9 %; Neutrophils # (A) 3.3 k/uL (1.3-7.7); Neutrophils % (A) 62 %; Platelet Count 184 k/uL (150-450); RBC 2.83 m/uL (3.80-5.40); RDW 18.2 % (11.5-15.5); WBC 5.3 k/uL (3.8-10.6)
[2018-04-13 09:31] LABS: ALT 29 U/L (9-52); AST 18 U/L (14-36); Alkaline Phosphatase 50 U/L (38-126); Anion Gap 2 mmol/L; Blood Urea Nitrogen 16 mg/dL (7-17); Calcium 7.9 mg/dL (8.4-10.2); Carbon Dioxide 24 mmol/L (22-30); Chloride 109 mmol/L (98-107); Glucose 107 mg/dL (74-99); Phosphorus 3.3 mg/dL (2.5-4.5); Potassium 4.4 mmol/L (3.5-5.1); Sodium 135 mmol/L (137-145); Total Bilirubin 0.4 mg/dL (0.2-1.3); Total Protein 4.2 g/dL (6.3-8.2)
--- NOTE | 2018-04-13 09:39 | P.PN ---
Subjective Progress Note Date: 04/12/18 This is a 62-year-old female patient of Dr. Asif with past medical history of hypertension, breast cancer, colon cancer. Regarding colon cancer, patient underwent a right colectomy done with Dr. Kulkarni on 12/31/2017, she has now completed her second round of chemotherapy and developed severe diarrhea, vomiting and couldn't keep anything down. She has had loose diarrhea almost every half hour up to 20 times per day. She denies having any history of DVT since diagnosed with cancer. She has had weight loss over the past year both intentional and from the colon cancer. She states she saw Dr. James on Thursday and there is concern that it could be related to a urinary tract infection and she was started on doxycycline. Patient tried taking Imodium without any improvement of her loose stools. She is currently on Xeloda orally twice daily for colon cancer and tamoxifen 20 mg daily for breast cancer. She is status post left breast lumpectomy and radiation treatment. Patient came into [facility] emergency center for evaluation. Patient was afebrile, heart rate in the low 100s. WBD, hemoglobin and platelets within normal limits. Sodium 128, potassium 3.9, chloride 95, CO2 20 , BUN 34 and creatinine 1.48, blood sugar 134. Patient denies history of diabetes. Liver function tests within normal limits, albumin 2.9. Stool for occult blood and WBC positive. C. difficile toxin negative. Urinalysis was cloudy, leukoesterase large, nitrate negative, bacteria rare, squamous cell 5, hyalin casts 68. Urine and stool cultures in progress. KUB reveals no evidence of bowel obstruction or free intraperitoneal air. Generalized colonic air-fluid levels suggest colonic ileus or liquid stool related to colitis or enteritis 04/07: Patient is followed by nephrology and oncology. She states she is finally feeling improved from yesterday. Case discussed with Dr. James and he recommends monitoring for another day and have not significantly improved, consider nothing by mouth and TPN for bowel rest. No antibiotics are recommended at this time. She has been afebrile, heart rate running in the 70s and 80s, blood pressure 103/63 and pulse ox 99% on room air. Sodium is up to 120, potassium 2.8, chloride 105 and CO2 18, BUN 26 and creatinine 0.97. Patient is currently on a clear liquid diet. 04/08: Patient states that she is feeling better from yesterday but continues to have stools every half to one hour. Her heart rate is improved today. She has had potassium replacement and repeat again today is only at 2.[address] Hickman is provided replacement orders for 140 mEq. Urine culture is positive for Anna only. She has been on ceftriaxone. Await further recommendations from oncology. She is currently eating very little and is on a clear liquid diet 04/09: Patient is status post potassium replacement currently at 4.3, sodium 134 , chloride 115, CO2 16, creatinine 0.71. Ionized calcium 6, phosphorus 1.6, AST 11, albumin 1.8. H. pylori came back not detected. Urine positive for Anna only. Patient had PICC line placed and was started on TPN yesterday afternoon and is nothing by mouth except for ice chips, medications, popsicles and gum. Diarrhea is slowly improving. She is continued on IV hydration. 04/10: Patient is resting comfortably in bed. Patient states that bowel movements are occurring about every 2-2-1/2 hours and she is able to make it to the bathroom now. Patient was able to get up and perform personal hygiene without any difficulties. Still experiencing some tenderness to the incisional site. Denies any pain or discomfort at this time. Patient was seen by gastroenterology and at this time we will continue to monitor diarrhea. Really C4.2, hemoglobin 9, sodium 134, potassium 4.0, BUN 13, creatinine 0.52, albumin is low as 1.6. 04/11: Patient is resting comfortable in bed. Patient states that she had approximately 5 episodes of diarrhea in a 24 hour period. She is able to make it to the bathroom at each time. Her last episode of diarrhea was around 4:30 this morning. Patient is not complaining of abdominal discomfort she still experiencing some tenderness to the incisional site. She has not had any nausea or vomiting. Albumin continues to be low. We will start her on a clear liquid diet to see if she is able to tolerate it if cleared by GI/oncology. We will also set up social work to assess her home care needs. 04/12: Patient will complete a course of Rocephin and we will discontinue. She states she had sudden onset of diarrhea after eating last evening along with nausea without vomiting. She is back to nothing by mouth status and just try clears for tonight. She's had no diarrhea since 6 AM. She is continued on TPN Review of Systems Constitutional: Reports fatigue, Reports poor appetite, Reports weight loss, reports anorexia, Denies chills, Denies fever, Denies weakness Eyes: denies blurred vision, denies pain Ears, nose, mouth and throat: Denies dysphagia, Denies headache, Denies hoarseness, Denies sore throat, Denies vertigo Cardiovascular: Denies chest pain, Denies dyspnea on exertion, Denies edema, Denies leg edema, Denies lightheadedness, Denies shortness of breath, Denies syncope Respiratory: Denies cough, Denies cough with sputum, Denies dyspnea, Denies excessive sputum, Denies hemoptysis, Denies home oxygen, Denies wheezing Gastrointestinal: Reports abdominal pain, Reports diarrhea, Reports loss of appetite, Reports nausea, denies vomiting Genitourinary: Denies dysuria, Denies hematuria Musculoskeletal: Denies frequent falls, Denies gait dysfunction, Denies myalgias Integumentary: Denies pruritus, Denies rash, Denies wounds Neurological: Denies aphasia, Denies change in mentation, Denies change in smell /taste, Denies gait dysfunction, Denies head injury, Denies headaches, Denies numbness, Denies seizures, Denies vertigo, Denies weakness Psychiatric: Denies anxiety, Denies depression Endocrine: Denies fatigue, Denies weight change Objective - Vital Signs Vital signs: Vital Signs Temp 97.6 F 04/12/18 05:00 Pulse 82 04/12/18 05:00 Resp 16 04/12/18 05:00 BP 106/67 04/12/18 05:00 Pulse Ox 99 04/12/18 05:00 Intake & Output 04/11/18 04/12/18 04/12/18 18:59 06:59 18:59 Intake Total 3962.1667 940 Output Total 3 Balance 2639.1667 940 Weight 62.6 kg Intake: Intake, IV Titration 2621.2677 820 Amount 0.9% NaCl with KCl 20 Meq 800 400 /l 1,000 ml @ 100 mls/hr IV .Q10H [facility] Rx#: [id number] Albumin Human 25% 50 ml 50 In Empty Bag 1 bag @ 50 mls/hr IVPB ONCE ONE Rx#: [id number] Amino Acid 5%-D15w+Lytes* 332 340 E* 1,000 ml @ 83 mls/hr IV .BY DURATION [facility] Rx#: [id number] Fat Emulsion 20% 250 ml @ 250 80 21 mls/hr IV Q24H [facility] Rx #:[id number] Mvi, Adult No.4 with Vit 664 K 10 ml Trace (Conc-1Ml/ Dose) 1 ml In Amino Acid 5%-D15w+Lytes*E* 1,000 ml @ 83 mls/hr IV .BY DURATION [facility] Rx#: [id number] Mvi, Adult No.4 with Vit 1036.1667 K 10 ml Trace (Conc-1Ml/ Dose) 1 ml Sodium Acetate 35 meq Potassium Phosphate 20 mmol Magnesium Sulfate gm 0.5 gm In Amino Acid 5%-D15w 1,000 ml @ 83 mls/hr IV . BY DURATION [facility] Rx#: [id number] cefTRIAXone 2 gm In 50 Sodium Chloride 0.9% 50 ml @ 100 mls/hr IVPB Q24HR [facility] Rx#:[id number] Oral 780 120 Output: Urine 3 Other: Voiding Method Toilet Toilet # Voids 5 2 # Bowel Movements 2 - Exam Gen: This is a thin 62-year-old female. She is sitting up in bed in no acute distress. HEENT: Head is atraumatic, normocephalic. Pupils equal, round. Sclerae is anicteric. NECK: Supple. No JVD. No lymphadenopathy. No thyromegaly. LUNGS: Clear to auscultation. No wheezes or rhonchi. No intercostal retractions. HEART: Regular rate and rhythm. No murmur. ABDOMEN: Soft. Bowel sounds are present. No masses. No tenderness. No hepatosplenomegaly. EXTREMITIES: No pedal edema. No calf tenderness. Dorsalis pedis +2 bilaterally. NEUROLOGICAL: Patient is awake, alert and oriented x3. Cranial nerves 2 through 12 are grossly intact. - Labs CBC & Chem 7: 04/13/18 08:36 04/13/18 08:36 Labs: Abnormal Lab Results - Last 24 Hours (Table) 02/24/19 02/24/19 02/24/19 Range/Units 12:32 17:38 23:36 RBC (3.80-5.40) m/uL Hgb (11.4-16.0) gm/dL Hct (34.0-46.0) % MCV (80.0-100.0) fL RDW (11.5-15.5) % Chloride (98-107) mmol/L Carbon Dioxide (22-30) mmol/L Creatinine (0.52-1.04) mg/dL POC Glucose (mg/dL) 118 H 106 H 119 H (75-99) mg/dL Calcium (8.4-10.2) mg/dL Total Protein (6.3-8.2) g/dL Albumin (3.5-5.0) g/dL 04/12/18 04/12/18 04/12/18 Range/Units 06:17 07:21 07:21 RBC 2.78 L (3.80-5.40) m/uL Hgb 9.4 L (11.4-16.0) gm/dL Hct 28.7 L (34.0-46.0) % MCV 103.2 H (80.0-100.0) fL RDW 17.5 H (11.5-15.5) % Chloride 114 H (98-107) mmol/L Carbon Dioxide 21 L (22-30) mmol/L Creatinine 0.50 L (0.52-1.04) mg/dL POC Glucose (mg/dL) 115 H (75-99) mg/dL Calcium 8.0 L (8.4-10.2) mg/dL Total Protein 4.1 L (6.3-8.2) g/dL Albumin 2.0 L (3.5-5.0) g/dL Assessment and Plan Plan: 1. Acute kidney injury and dehydration secondary to nausea, vomiting and diarrhea. Patient is status post 2 L, continue IV fluids. Continue Imodium for diarrhea, Zofran for nausea. Consult with nephrology appreciated. 2. History of colon cancer status post right colectomy and chemotherapy. Consult with Dr. James. Patient has been on Xeloda. 3. History of breast cancer status post lumpectomy and radiation. Continue tamoxifen. 4. Nausea, vomiting, diarrhea secondary to colitis from Xeloda. Consult with Dr. Erika. Continue IV fluids, Questran, Imodium. 5. Hypertension. Continue lisinopril 10 mg daily will be resumed. 6. Acute urinary tract infection treated with doxycycline as an outpatient. Discontinue ceftriaxone. Patient treated with IV Diflucan. 7. Hyponatremia secondary to dehydration. Continue IV fluids. 8. DVT prophylaxis. Lovenox daily. 9. GI prophylaxis. Protonix. 10. Hypokalemia secondary to diarrhea. Replaced 11. Hypercalcemia secondary to metabolic acidosis. 12. Hypophosphatemia secondary to decreased oral intake. Replaced. 13. Severe protein calorie malnutrition requiring TPN. Patient is on bowel rest. Discharge plan: Return home with home care Impression and plan of care have been directed as dictated by the signing physician. Opal Moreno nurse practitioner acting as scribe for signing physician.
[2018-04-13] MEDS: ASPIRIN 81 MG PO SCH (10:09)
[2018-04-13] MEDS: PANTOPRAZOLE 40 MG TABLET PO SCH (10:09)
[2018-04-13] MEDS: FERROUS SULFATE 325 MG TAB PO SCH (10:09)
[2018-04-13] MEDS: LISINOPRIL 10 MG TAB PO SCH (10:09)
[2018-04-13] MEDS: ENOXAPARIN 40 MG/0.4 ML SYRINGE SQ SCH (10:09)
[2018-04-13] MEDS: HYDROCORTISONE 1% CREAM 454 GM JAR TOPICAL SCH ×4 (10:10→21:50)
[2018-04-13] MEDS: SODIUM BICARBONATE TAB 650 MG TAB PO SCH ×4 (10:10→21:37)
[2018-04-13] MEDS: PETROLATUM, WHITE OINT 50 GM TUBE TOPICAL SCH ×4 (10:10→21:50)
[2018-04-13] MEDS: POTASSIUM CHLORIDE ER 20 MEQ TAB.ER PO SCH (10:10)
[2018-04-13] MEDS: CHOLESTYRAMINE (WITH SUGAR) 4 GM PACKET PO SCH ×5 (10:11→21:52)
[2018-04-13] MEDS: TAMOXIFEN 10 MG TAB PO SCH (10:11)
[2018-04-13] MEDS: MAG HYDROX/AL HYDROX/SIMETH 30 ML, LIDOCAINE VISCOUS 30 ML, diphenhydrAMINE ELIXIR 75 M... PO SCH ×12 (10:12→22:50)
--- NOTE | 2018-04-13 10:52 | P.PN ---
Subjective Patient is seen in follow-up for acute kidney injury which has resolved. Currently on clear liquid diet but not able to tolerate. Admits to good urine output. She is maintained on TPN. She is also on IV fluids running at 50 mL an hour. No chest pain or shortness of breath. Vital signs are stable. General: The patient appeared well nourished and normally developed. HEENT: Head exam is unremarkable. Neck is without jugular venous distension. LUNGS: Lungs are clear to auscultation and percussion. Breath sounds decreased. HEART: Rate and Rhythm are regular. First and second heart sounds normal. No murmurs, rubs or gallops. ABDOMEN: Abdominal exam reveals normal bowel sounds. Non-tender and non- distended. No evidence of peritonitis. EXTREMITITES: No clubbing, cyanosis, or edema. Objective - Vital Signs Vital signs: Vital Signs Temp 98.9 F 04/13/18 05:00 Pulse 89 04/13/18 05:00 Resp 16 04/13/18 05:00 BP 117/71 04/13/18 05:00 Pulse Ox 99 04/13/18 05:00 Intake & Output 04/12/18 04/13/18 04/13/18 18:59 06:59 18:59 Intake Total 2099.1667 2386 Balance 2386 Weight 60.9 kg 60.9 kg Intake: IV 415 Sodium Acetate 35 meq 415 Potassium Phosphate 20 mmol Magnesium Sulfate gm 0.5 gm In Amino Acid 5%- D15w 1,000 ml @ 83 mls/hr IV .BY DURATION [facility] Rx#: [id number] Intake, IV Titration 2099.1666 971 Amount 0.9% NaCl with KCl 20 Meq 300 450 /l 1,000 ml @ 50 mls/hr IV .Q20H [facility] Rx#: [id number] Amino Acid 5%-D15w+Lytes* 664 E* 1,000 ml @ 83 mls/hr IV .BY DURATION [facility] Rx#: [id number] Fat Emulsion 20% 250 ml @ 189 21 mls/hr IV Q24H [facility] Rx #:[id number] Magnesium Sulfate-D5w Pmx 100 1 gm In Dextrose/Water 1 100ml.bag @ 100 mls/hr IVPB Q1H [facility] Rx#: [id number] Mvi, Adult No.4 with Vit 332 K 10 ml Trace (Conc-1Ml/ Dose) 1 ml In Amino Acid 5%-D15w+Lytes*E* 1,000 ml @ 83 mls/hr IV .BY DURATION [facility] Rx#: [id number] Mvi, Adult No.4 with Vit 1036.1667 K 10 ml Trace (Conc-1Ml/ Dose) 1 ml Sodium Acetate 35 meq Potassium Phosphate 20 mmol Magnesium Sulfate gm 0.5 gm In Amino Acid 5%-D15w 1,000 ml @ 83 mls/hr IV . BY DURATION [facility] Rx#: [id number] Oral 1000 Other: Voiding Method Toilet Toilet # Voids 2 # Bowel Movements 1 - Labs CBC & Chem 7: 04/13/18 08:36 04/13/18 08:36 Labs: Abnormal Lab Results - Last 24 Hours (Table) 04/12/18 04/12/18 04/13/18 Range/Units 11:11 17:20 00:13 RBC (3.80-5.40) m/uL Hgb (11.4-16.0) gm/dL Hct (34.0-46.0) % MCV (80.0-100.0) fL RDW (11.5-15.5) % Sodium (137-145) mmol/L Chloride (98-107) mmol/L Glucose (74-99) mg/dL POC Glucose (mg/dL) 114 H 129 H 138 H (75-99) mg/dL Calcium (8.4-10.2) mg/dL Total Protein (6.3-8.2) g/dL Albumin (3.5-5.0) g/dL 04/13/18 04/13/18 04/13/18 Range/Units 06:05 08:36 08:36 RBC 2.83 L (3.80-5.40) m/uL Hgb 9.7 L (11.4-16.0) gm/dL Hct 29.3 L (34.0-46.0) % MCV 103.5 H (80.0-100.0) fL RDW 18.2 H (11.5-15.5) % Sodium 135 L (137-145) mmol/L Chloride 109 H (98-107) mmol/L Glucose 107 H (74-99) mg/dL POC Glucose (mg/dL) 128 H (75-99) mg/dL Calcium 7.9 L (8.4-10.2) mg/dL Total Protein 4.2 L (6.3-8.2) g/dL Albumin 2.0 L (3.5-5.0) g/dL Assessment and Plan Plan: Assessment: 1. Acute kidney injury mostly prerenal secondary to intravascular volume depletion from diarrhea improved with IV hydration. GFR back to baseline. 2. Colon cancer status post right hemicolectomy. 3. Metabolic acidosis secondary to IV fluids and GI losses maintain on oral sodium bicarbonate. 4. Hypokalemia from poor oral intake maintained on potassium supplementation. Better. 5. Hypophosphatemia and hypomagnesemia status post placement. Better. Plan: Maintain TPN. Maintain normal saline at 50 mL an hour. Repeat electrolytes in the morning.
[2018-04-13 11:30] LABS: Glucose,Whole Blood 120 mg/dL (75-99)
[2018-04-13] MEDS: CYANOCOBALAMIN 500 MCG TAB PO SCH (12:12)
[2018-04-13] MEDS: CHOLECALCIFEROL 1,000 UNIT TAB PO SCH (12:12)
--- NOTE | 2018-04-13 12:16 | P.PN ---
Subjective Progress Note Date: 04/13/18 Principal diagnosis: diarrhea Diarrhea has improved but not functional she's passed 5 bowel movements since 6 AM. Intermittent abdominal cramping. Receiving alternating doses of Imodium and Lomotil. Stool culture no growth. C. diff negative. Hemoglobin 9.7. White count 5.3. Lactoferrin positive. Objective - Vital Signs Vital signs: Vital Signs Temp 98.9 F 04/13/18 05:00 Pulse 89 04/13/18 05:00 Resp 16 04/13/18 05:00 BP 117/71 04/13/18 05:00 Pulse Ox 99 04/13/18 05:00 Intake & Output 04/12/18 04/13/18 04/13/18 18:59 06:59 18:59 Intake Total 2099.1667 2386 Balance 2099.1666 2386 Weight 60.9 kg 60.9 kg Intake: IV 415 Sodium Acetate 35 meq 415 Potassium Phosphate 20 mmol Magnesium Sulfate gm 0.5 gm In Amino Acid 5%- D15w 1,000 ml @ 83 mls/hr IV .BY DURATION [facility] Rx#: [id number] Intake, IV Titration 2099.1666 971 Amount 0.9% NaCl with KCl 20 Meq 300 450 /l 1,000 ml @ 50 mls/hr IV .Q20H [facility] Rx#: [id number] Amino Acid 5%-D15w+Lytes* 664 E* 1,000 ml @ 83 mls/hr IV .BY DURATION [facility] Rx#: [id number] Fat Emulsion 20% 250 ml @ 189 21 mls/hr IV Q24H [facility] Rx #:[id number] Magnesium Sulfate-D5w Pmx 100 1 gm In Dextrose/Water 1 100ml.bag @ 100 mls/hr IVPB Q1H [facility] Rx#: [id number] Mvi, Adult No.4 with Vit 332 K 10 ml Trace (Conc-1Ml/ Dose) 1 ml In Amino Acid 5%-D15w+Lytes*E* 1,000 ml @ 83 mls/hr IV .BY DURATION [facility] Rx#: [id number] Mvi, Adult No.4 with Vit 1036.1667 K 10 ml Trace (Conc-1Ml/ Dose) 1 ml Sodium Acetate 35 meq Potassium Phosphate 20 mmol Magnesium Sulfate gm 0.5 gm In Amino Acid 5%-D15w 1,000 ml @ 83 mls/hr IV . BY DURATION [facility] Rx#: [id number] Oral 1000 Other: Voiding Method Toilet Toilet # Voids 2 # Bowel Movements 1 - Exam General appearance: The patient is alert, oriented, in no acute distress. HET: Head is normocephalic and atraumatic. Pupils are equal and reactive. Oropharynx is clear without lesions. Neck: Supple without lymphadenopathy. Trachea midline. Heart: S1 S2. Regular rate and rhythm. Lungs: No crackles or wheezes are heard. Abdomen: Soft, mild diffuse tenderness across mid abdomen, nondistended with bowel sounds. No peritoneal signs. No palpable organomegaly or masses. Extremities: Normal skin color and turgor. No cyanosis, rash, ulceration, clubbing, or edema. Radial and pedal pulses are 2/4 bilaterally. Neurological: No focal deficits. Strength and sensation are grossly intact. - Labs CBC & Chem 7: 04/13/18 08:36 04/13/18 08:36 Labs: Abnormal Lab Results - Last 24 Hours (Table) 04/12/18 04/13/18 04/13/18 Range/Units 17:20 00:13 06:05 RBC (3.80-5.40) m/uL Hgb (11.4-16.0) gm/dL Hct (34.0-46.0) % MCV (80.0-100.0) fL RDW (11.5-15.5) % Sodium (137-145) mmol/L Chloride (98-107) mmol/L Glucose (74-99) mg/dL POC Glucose (mg/dL) 129 H 138 H 128 H (75-99) mg/dL Calcium (8.4-10.2) mg/dL Total Protein (6.3-8.2) g/dL Albumin (3.5-5.0) g/dL 04/13/18 04/13/18 04/13/18 Range/Units 08:36 08:36 11:28 RBC 2.83 L (3.80-5.40) m/uL Hgb 9.7 L (11.4-16.0) gm/dL Hct 29.3 L (34.0-46.0) % MCV 103.5 H (80.0-100.0) fL RDW 18.2 H (11.5-15.5) % Sodium 135 L (137-145) mmol/L Chloride 109 H (98-107) mmol/L Glucose 107 H (74-99) mg/dL POC Glucose (mg/dL) 120 H (75-99) mg/dL Calcium 7.9 L (8.4-10.2) mg/dL Total Protein 4.2 L (6.3-8.2) g/dL Albumin 2.0 L (3.5-5.0) g/dL Assessment and Plan (1) Diarrhea Current Visit: Yes Status: Acute Priority: High Code(s): R19.7 - DIARRHEA , UNSPECIFIED SNOMED Code(s): 80738627 (2) Colon cancer Current Visit: Yes Status: Acute Priority: High Code(s): C18.9 - MALIGNANT NEOPLASM OF COLON, UNSPECIFIED SNOMED Code(s): 057710599 Plan: 1. Diet as tolerated. 2. Change Bentyl 10 mg scheduled for times a day. 3. Emissions Engineer to discuss alternate dosing of Imodium and Bentyl. Continue with present medical therapy. We'll continue to follow closely. Assessment and plan a care discussed with Dr. Villagomez
[2018-04-13] MEDS ORDERED: DICYCLOMINE 10 MG CAP PO SCH (13:00)
[2018-04-13] MEDS: 0.9% NACL WITH KCL 20 MEQ/L 1,000 ML IV SCH (15:01)
--- NOTE | 2018-04-13 15:23 | P.PN ---
Subjective Progress Note Date: 04/13/18 This is a 62-year-old female patient of Dr. Asif with past medical history of hypertension, breast cancer, colon cancer. Regarding colon cancer, patient underwent a right colectomy done with Dr. Kulkarni on 12/31/2017, she has now completed her second round of chemotherapy and developed severe diarrhea, vomiting and couldn't keep anything down. She has had loose diarrhea almost every half hour up to 20 times per day. She denies having any history of DVT since diagnosed with cancer. She has had weight loss over the past year both intentional and from the colon cancer. She states she saw Dr. James on Thursday and there is concern that it could be related to a urinary tract infection and she was started on doxycycline. Patient tried taking Imodium without any improvement of her loose stools. She is currently on Xeloda orally twice daily for colon cancer and tamoxifen 20 mg daily for breast cancer. She is status post left breast lumpectomy and radiation treatment. Patient came into [facility] emergency center for evaluation. Patient was afebrile, heart rate in the low 100s. WBD, hemoglobin and platelets within normal limits. Sodium 128, potassium 3.9, chloride 95, CO2 20 , BUN 34 and creatinine 1.48, blood sugar 134. Patient denies history of diabetes. Liver function tests within normal limits, albumin 2.9. Stool for occult blood and WBC positive. C. difficile toxin negative. Urinalysis was cloudy, leukoesterase large, nitrate negative, bacteria rare, squamous cell 5, hyalin casts 68. Urine and stool cultures in progress. KUB reveals no evidence of bowel obstruction or free intraperitoneal air. Generalized colonic air-fluid levels suggest colonic ileus or liquid stool related to colitis or enteritis 04/07: Patient is followed by nephrology and oncology. She states she is finally feeling improved from yesterday. Case discussed with Dr. James and he recommends monitoring for another day and have not significantly improved, consider nothing by mouth and TPN for bowel rest. No antibiotics are recommended at this time. She has been afebrile, heart rate running in the 70s and 80s, blood pressure 103/63 and pulse ox 99% on room air. Sodium is up to 120, potassium 2.8, chloride 105 and CO2 18, BUN 26 and creatinine 0.97. Patient is currently on a clear liquid diet. 04/08: Patient states that she is feeling better from yesterday but continues to have stools every half to one hour. Her heart rate is improved today. She has had potassium replacement and repeat again today is only at 2.[address] Hickman is provided replacement orders for 140 mEq. Urine culture is positive for Anna only. She has been on ceftriaxone. Await further recommendations from oncology. She is currently eating very little and is on a clear liquid diet 04/09: Patient is status post potassium replacement currently at 4.3, sodium 134 , chloride 115, CO2 16, creatinine 0.71. Ionized calcium 6, phosphorus 1.6, AST 11, albumin 1.8. H. pylori came back not detected. Urine positive for Anna only. Patient had PICC line placed and was started on TPN yesterday afternoon and is nothing by mouth except for ice chips, medications, popsicles and gum. Diarrhea is slowly improving. She is continued on IV hydration. 04/10: Patient is resting comfortably in bed. Patient states that bowel movements are occurring about every 2-2-1/2 hours and she is able to make it to the bathroom now. Patient was able to get up and perform personal hygiene without any difficulties. Still experiencing some tenderness to the incisional site. Denies any pain or discomfort at this time. Patient was seen by gastroenterology and at this time we will continue to monitor diarrhea. Really C4.2, hemoglobin 9, sodium 134, potassium 4.0, BUN 13, creatinine 0.52, albumin is low as 1.6. 04/11: Patient is resting comfortable in bed. Patient states that she had approximately 5 episodes of diarrhea in a 24 hour period. She is able to make it to the bathroom at each time. Her last episode of diarrhea was around 4:30 this morning. Patient is not complaining of abdominal discomfort she still experiencing some tenderness to the incisional site. She has not had any nausea or vomiting. Albumin continues to be low. We will start her on a clear liquid diet to see if she is able to tolerate it if cleared by GI/oncology. We will also set up social work to assess her home care needs. 04/12: Patient will complete a course of Rocephin and we will discontinue. She states she had sudden onset of diarrhea after eating last evening along with nausea without vomiting. She is back to nothing by mouth status and just try clears for tonight. She's had no diarrhea since 6 AM. She is continued on TPN 04/13: Patient states she is feeling better but continues to have diarrhea starting about half hour after she eats and then about 3 more episodes after that. She is on Questran and Imodium. Plan is to continue TPN until patient is stable for discharge and patient may continue clear liquid diet at home. Plan to continue monitoring. She has been afebrile, heart rate in the 70s and 80s, blood pressure 117/72, pulse ox is 100% on room air. White count is 5.3, hemoglobin 9.7, platelet count 184, creatinine 0.55. Blood sugars run between 120 and 138. Review of Systems Constitutional: Reports fatigue, Reports poor appetite, Reports weight loss, Denies chills, Denies fever, Denies weakness Eyes: denies blurred vision, denies pain Ears, nose, mouth and throat: Denies dysphagia, Denies headache, Denies hoarseness, Denies sore throat, Denies vertigo Cardiovascular: Denies chest pain, Denies dyspnea on exertion, Denies edema, Denies leg edema, Denies lightheadedness, Denies shortness of breath, Denies syncope Respiratory: Denies cough, Denies cough with sputum, Denies dyspnea, Denies excessive sputum, Denies hemoptysis, Denies home oxygen, Denies wheezing Gastrointestinal: Reports abdominal pain, Reports diarrhea, Reports loss of appetite, Reports nausea, denies vomiting Genitourinary: Denies dysuria, Denies hematuria Musculoskeletal: Denies frequent falls, Denies gait dysfunction, Denies myalgias Integumentary: Denies pruritus, Denies rash, Denies wounds Neurological: Denies aphasia, Denies change in mentation, Denies change in smell /taste, Denies gait dysfunction, Denies head injury, Denies headaches, Denies numbness, Denies seizures, Denies vertigo, Denies weakness Psychiatric: Denies anxiety, Denies depression Endocrine: Denies fatigue, Denies weight change Objective - Vital Signs Vital signs: Vital Signs Temp 98.9 F 04/13/18 05:00 Pulse 89 04/13/18 05:00 Resp 16 04/13/18 05:00 BP 117/71 04/13/18 05:00 Pulse Ox 99 04/13/18 05:00 Intake & Output 04/12/18 04/13/18 04/13/18 18:59 06:59 18:59 Intake Total 2385 Balance 2385 Weight 60.9 kg 60.9 kg Intake: IV 415 Sodium Acetate 35 meq 415 Potassium Phosphate 20 mmol Magnesium Sulfate gm 0.5 gm In Amino Acid 5%- D15w 1,000 ml @ 83 mls/hr IV .BY DURATION [facility] Rx#: [id number] Intake, IV Titration 97 Amount 0.9% NaCl with KCl 20 Meq 300 450 /l 1,000 ml @ 50 mls/hr IV .Q20H [facility] Rx#: [id number] Amino Acid 5%-D15w+Lytes* 664 E* 1,000 ml @ 83 mls/hr IV .BY DURATION [facility] Rx#: [id number] Fat Emulsion 20% 250 ml @ 189 21 mls/hr IV Q24H [facility] Rx #:[id number] Magnesium Sulfate-D5w Pmx 100 1 gm In Dextrose/Water 1 100ml.bag @ 100 mls/hr IVPB Q1H [facility] Rx#: [id number] Mvi, Adult No.4 with Vit 332 K 10 ml Trace (Conc-1Ml/ Dose) 1 ml In Amino Acid 5%-D15w+Lytes*E* 1,000 ml @ 83 mls/hr IV .BY DURATION [facility] Rx#: [id number] Mvi, Adult No.4 with Vit 1036.1667 K 10 ml Trace (Conc-1Ml/ Dose) 1 ml Sodium Acetate 35 meq Potassium Phosphate 20 mmol Magnesium Sulfate gm 0.5 gm In Amino Acid 5%-D15w 1,000 ml @ 83 mls/hr IV . BY DURATION [facility] Rx#: [id number] Oral 1000 Other: Voiding Method Toilet # Voids 2 # Bowel Movements 1 - Exam Gen: This is a thin 62-year-old female. She is sitting up in bed in no acute distress. Family members at bedside HEENT: Head is atraumatic, normocephalic. Pupils equal, round. Sclerae is anicteric. NECK: Supple. No JVD. No lymphadenopathy. No thyromegaly. LUNGS: Clear to auscultation. No wheezes or rhonchi. No intercostal retractions. HEART: Regular rate and rhythm. No murmur. ABDOMEN: Soft. Bowel sounds are present. No masses. No tenderness. No hepatosplenomegaly. EXTREMITIES: No pedal edema. No calf tenderness. Dorsalis pedis +2 bilaterally. NEUROLOGICAL: Patient is awake, alert and oriented x3. Cranial nerves 2 through 12 are grossly intact. - Labs CBC & Chem 7: 04/13/18 08:36 04/13/18 08:36 Labs: Abnormal Lab Results - Last 24 Hours (Table) 04/12/18 04/12/18 04/13/18 Range/Units 11:11 17:20 00:13 RBC (3.80-5.40) m/uL Hgb (11.4-16.0) gm/dL Hct (34.0-46.0) % MCV (80.0-100.0) fL RDW (11.5-15.5) % Sodium (137-145) mmol/L Chloride (98-107) mmol/L Glucose (74-99) mg/dL POC Glucose (mg/dL) 114 H 129 H 138 H (75-99) mg/dL Calcium (8.4-10.2) mg/dL Total Protein (6.3-8.2) g/dL Albumin (3.5-5.0) g/dL 04/13/18 04/13/18 04/13/18 Range/Units 06:05 08:36 08:36 RBC 2.83 L (3.80-5.40) m/uL Hgb 9.7 L (11.4-16.0) gm/dL Hct 29.3 L (34.0-46.0) % MCV 103.5 H (80.0-100.0) fL RDW 18.2 H (11.5-15.5) % Sodium 135 L (137-145) mmol/L Chloride 109 H (98-107) mmol/L Glucose 107 H (74-99) mg/dL POC Glucose (mg/dL) 128 H (75-99) mg/dL Calcium 7.9 L (8.4-10.2) mg/dL Total Protein 4.2 L (6.3-8.2) g/dL Albumin 2.0 L (3.5-5.0) g/dL Assessment and Plan Plan: 1. Acute kidney injury and dehydration secondary to nausea, vomiting and diarrhea. Patient is status post 2 L, continue IV fluids. Continue Imodium for diarrhea, Zofran for nausea. Consult with nephrology appreciated. 2. History of colon cancer status post right colectomy and chemotherapy. Consult with Dr. James. Patient has been on Xeloda. 3. History of breast cancer status post lumpectomy and radiation. Continue tamoxifen. 4. Nausea, vomiting, diarrhea secondary to colitis from Xeloda. Consult with Dr. James. Continue IV fluids, Questran, Imodium. 5. Hypertension. Continue lisinopril 10 mg daily will be resumed. 6. Acute urinary tract infection treated with doxycycline as an outpatient. Discontinue ceftriaxone. Patient treated with IV Diflucan. 7. Hyponatremia secondary to dehydration. Continue IV fluids. 8. DVT prophylaxis. Lovenox daily. 9. GI prophylaxis. Protonix. 10. Hypokalemia secondary to diarrhea. Replaced 11. Hypercalcemia secondary to metabolic acidosis. 12. Hypophosphatemia secondary to decreased oral intake. Replaced. 13. Severe protein calorie malnutrition requiring TPN. Patient is on bowel rest. Patient started on clear liquid diet. Discharge plan: Return home with home care Impression and plan of care have been directed as dictated by the signing physician. Opal Moreno nurse practitioner acting as scribe for signing physician.
--- NOTE | 2018-04-13 16:34 | P.PN ---
Subjective Progress Note Date: 04/13/18 Principal diagnosis: Dehydration, PPE, intractable diarrhea secondary to cytotoxic drugs In follow-up today patient's mucositis is resolved, patient's PPE on the hands is stable, improving, there is still skin peeling no open lesions or blisters. Patient had clear liquids for breakfast, 3 episodes of diarrhea since eating. She denies mucus or blood in the stool, mild cramping Objective - Vital Signs Vital signs: Vital Signs Temp 98.1 F 04/13/18 12:53 Pulse 76 04/13/18 12:53 Resp 16 04/13/18 12:53 BP 117/72 04/13/18 12:53 Pulse Ox 100 04/13/18 12:53 Intake & Output 04/12/18 04/13/18 04/13/18 18:59 06:59 18:59 Intake Total 2100.1667 2386 1036.1667 Balance 2100.1667 2386 1036.1667 Weight 60.9 kg 60.9 kg Intake: IV 415 Sodium Acetate 35 meq 415 Potassium Phosphate 20 mmol Magnesium Sulfate gm 0.5 gm In Amino Acid 5%- D15w 1,000 ml @ 83 mls/hr IV .BY DURATION [facility] Rx#: [id number] Intake, IV Titration 2100.3489 328 0275.1667 Amount 0.9% NaCl with KCl 20 Meq 300 450 /l 1,000 ml @ 50 mls/hr IV .Q20H [facility] Rx#: [id number] Amino Acid 5%-D15w+Lytes* 664 E* 1,000 ml @ 83 mls/hr IV .BY DURATION [facility] Rx#: [id number] Fat Emulsion 20% 250 ml @ 189 21 mls/hr IV Q24H [facility] Rx #:[id number] Magnesium Sulfate-D5w Pmx 100 1 gm In Dextrose/Water 1 100ml.bag @ 100 mls/hr IVPB Q1H [facility] Rx#: [id number] Mvi, Adult No.4 with Vit 332 K 10 ml Trace (Conc-1Ml/ Dose) 1 ml In Amino Acid 5%-D15w+Lytes*E* 1,000 ml @ 83 mls/hr IV .BY DURATION [facility] Rx#: [id number] Mvi, Adult No.4 with Vit 1036.1667 1036.1667 K 10 ml Trace (Conc-1Ml/ Dose) 1 ml Sodium Acetate 35 meq Potassium Phosphate 20 mmol Magnesium Sulfate gm 0.5 gm In Amino Acid 5%-D15w 1,000 ml @ 83 mls/hr IV . BY DURATION [facility] Rx#: [id number] Oral 1000 Other: Voiding Method Toilet Toilet # Voids 2 2 # Bowel Movements 1 - Constitutional General appearance: Present: average body habitus, cooperative, no acute distress - EENT Eyes: Present: anicteric sclerae, EOMI ENT: Present: normal oropharynx - Respiratory Respiratory: bilateral: CTA - Cardiovascular Rhythm: regular Heart sounds: normal: S1, S2 Abnormal Heart Sounds: Absent: systolic murmur, diastolic murmur, rub, S3 Gallop , S4 Gallop, click, other - Peripheral edema leg Peripheral Edema: bilateral: None - Gastrointestinal Gastrointestinal Comment(s): loud bowel sounds General gastrointestinal: Present: soft - Integumentary Integumentary Comment(s): The thenar eminence crease of both hands has grade 2-3 PPE, no blisters or open areas - Neurologic Neurologic: Present: CNII-XII intact - Musculoskeletal Musculoskeletal: Present: strength equal bilaterally - Psychiatric Psychiatric: Present: A&O x's 3, appropriate affect, intact judgment & insight - Labs CBC & Chem 7: 04/13/18 08:36 04/13/18 08:36 Labs: Abnormal Lab Results - Last 24 Hours (Table) 04/12/18 04/13/18 04/13/18 Range/Units 17:20 00:13 06:05 RBC (3.80-5.40) m/uL Hgb (11.4-16.0) gm/dL Hct (34.0-46.0) % MCV (80.0-100.0) fL RDW (11.5-15.5) % Sodium (137-145) mmol/L Chloride (98-107) mmol/L Glucose (74-99) mg/dL POC Glucose (mg/dL) 129 H 138 H 128 H (75-99) mg/dL Calcium (8.4-10.2) mg/dL Total Protein (6.3-8.2) g/dL Albumin (3.5-5.0) g/dL 04/13/18 04/13/18 04/13/18 Range/Units 08:36 08:36 11:28 RBC 2.83 L (3.80-5.40) m/uL Hgb 9.7 L (11.4-16.0) gm/dL Hct 29.3 L (34.0-46.0) % MCV 103.5 H (80.0-100.0) fL RDW 18.2 H (11.5-15.5) % Sodium 135 L (137-145) mmol/L Chloride 109 H (98-107) mmol/L Glucose 107 H (74-99) mg/dL POC Glucose (mg/dL) 120 H (75-99) mg/dL Calcium 7.9 L (8.4-10.2) mg/dL Total Protein 4.2 L (6.3-8.2) g/dL Albumin 2.0 L (3.5-5.0) g/dL Assessment and Plan (1) Drug-induced diarrhea Narrative/Plan: Cont IV fluids, TPN. Gastroenterology following. Discussed case with GI ROBOTICS APPLICATION ENGINEER. They're going to make some adjustments to the patient's antidiarrheal medications to optimize. Current Visit: Yes Status: Acute Priority: High Code(s): K52.1 - TOXIC GASTROENTERITIS AND COLITIS SNOMED Code(s): 513344798 (2) Drug-induced mucositis Current Visit: Yes Status: Resolved Priority: High Code(s): K12.32 - ORAL MUCOSITIS (ULCERATIVE) DUE TO OTHER DRUGS SNOMED Code(s): 525878686 (3) Palmar plantar erythrodysaesthesia due to cytotoxic therapy Narrative/Plan: continue topical therapies Current Visit: Yes Status: Acute Priority: High Code(s): L27.1 - LOC SKIN ERUPTION DUE TO DRUGS AND MEDS TAKEN INTERNALLY; T45.1X5A - ADVERSE EFFECT OF ANTINEOPLASTIC AND IMMUNOSUP DRUGS, INIT SNOMED Code(s): 173162052 (4) Breast cancer Narrative/Plan: Pt will continue tamoxifen as prescribed Current Visit: No Status: Chronic Priority: Medium Code(s): C50.919 - MALIGNANT NEOPLASM OF UNSP SITE OF UNSPECIFIED FEMALE BREAST SNOMED Code(s): 777125481 (5) Colon cancer Narrative/Plan: Pt is s/p 2nd 14 day cycle of Xeloda with grade 3-4 drug toxicity of diarrhea, persistent, but maybe grade 2-3 now. Grade 2-3 mucositis and PPE, which have resolved to grade 0-1. Did discuss with pharmacy utilizing antidote for capcetabine toxicity. Unfortunately, recommendation is for the drug to be used within 96 Hours of the last dose, pt is nearly 10 days out from last dose. It is also not available in the [place]. Patient's persistent diarrhea is very concerning. Gastroenterology has been consulted. We will follow with them and see patient daily. Continue current treatments as ordered and scheduled. Encouraged patient to continue clear liquids for now. Strict I's and O's Current Visit: Yes Status: Acute Priority: High Code(s): C18.9 - MALIGNANT NEOPLASM OF COLON, UNSPECIFIED SNOMED Code(s): 087212222 (6) Dehydration Narrative/Plan: Patient is being hydrated and being supported nutritionally with TPN. Current Visit: Yes Status: Acute Priority: High Code(s): E86.0 - DEHYDRATION SNOMED Code(s): 21936791 (7) Electrolyte depletion Narrative/Plan: Supplementation as needed. Patient is on TPN. Current Visit: Yes Status: Acute Priority: Medium Code(s): E87.8 - OTH DISORDERS OF ELECTROLYTE AND FLUID BALANCE, NEC SNOMED Code(s): 23196600 (8) Antineoplastic chemotherapy induced anemia Narrative/Plan: Iron studies suggestive of reactive/inflammation condition as ferritin is >200. No supplement at this time. Transfuse for hemoglobin less than 7. No transfusion needed today, Hgb stable. Current Visit: Yes Status: Acute Priority: Medium Code(s): D64.81 - ANEMIA DUE TO ANTINEOPLASTIC CHEMOTHERAPY; T45.1X5A - ADVERSE EFFECT OF ANTINEOPLASTIC AND IMMUNOSUP DRUGS, INIT SNOMED Code(s): 159507513
[2018-04-13 17:22] LABS: Glucose,Whole Blood 108 mg/dL (75-99)
[2018-04-13] MEDS: FAT EMULSION 20% 250 ML IV SCH (17:53)
[2018-04-13] MEDS: ACETAMINOPHEN TAB 325 MG TAB PO PRN (17:54)
[2018-04-13] MEDS: DICYCLOMINE 10 MG CAP PO SCH ×2 (18:39→23:47)
[2018-04-13] MEDS: LOPERAMIDE 2 MG CAP PO SCH ×2 (18:51→23:48)
[2018-04-13 23:36] LABS: Glucose,Whole Blood 142 mg/dL (75-99)
[2018-04-14] MEDS: INSULIN ASPART (NovoLOG) 100 UNIT/ML VIAL SQ SCH ×5 (01:14→23:50)
[2018-04-14] MEDS: LOPERAMIDE 2 MG CAP PO SCH ×5 (03:00→21:14)
[2018-04-14 06:11] LABS: Glucose,Whole Blood 93 mg/dL (75-99)
[2018-04-14] MEDS: DIPHENOX-ATROP 2.5-0.025 MG 1 EACH TAB PO SCH ×5 (06:17→23:50)
[2018-04-14] MEDS: POTASSIUM CHLORIDE ER 20 MEQ TAB.ER PO SCH (08:28)
[2018-04-14] MEDS: MAG HYDROX/AL HYDROX/SIMETH 30 ML, LIDOCAINE VISCOUS 30 ML, diphenhydrAMINE ELIXIR 75 M... PO SCH ×12 (08:28→21:14)
[2018-04-14] MEDS: DICYCLOMINE 10 MG CAP PO SCH ×3 (08:29→21:14)
[2018-04-14] MEDS: LISINOPRIL 10 MG TAB PO SCH (08:29)
[2018-04-14] MEDS: FERROUS SULFATE 325 MG TAB PO SCH (08:29)
[2018-04-14] MEDS: ENOXAPARIN 40 MG/0.4 ML SYRINGE SQ SCH (08:29)
[2018-04-14] MEDS: PANTOPRAZOLE 40 MG TABLET PO SCH (08:29)
[2018-04-14] MEDS: ASPIRIN 81 MG PO SCH (08:29)
[2018-04-14] MEDS: TAMOXIFEN 10 MG TAB PO SCH (08:29)
[2018-04-14] MEDS: SODIUM BICARBONATE TAB 650 MG TAB PO SCH ×4 (08:29→21:14)
[2018-04-14] MEDS: HYDROCORTISONE 1% CREAM 454 GM JAR TOPICAL SCH ×4 (08:30→21:15)
[2018-04-14] MEDS: PETROLATUM, WHITE OINT 50 GM TUBE TOPICAL SCH ×4 (08:30→21:15)
[2018-04-14 09:03] LABS: Anisocytosis Slight; Basophils % (A) 0 %; Eosinophils # (A) 0.1 k/uL (0-0.7); Eosinophils % (A) 2 %; HCT 27.9 % (34.0-46.0); HGB 9.6 gm/dL (11.4-16.0); Lymphocytes # (A) 1.3 k/uL (1.0-4.8); Lymphocytes % (A) 27 %; MCH 35.6 pg (25.0-35.0); MCHC 34.3 g/dL (31.0-37.0); MCV 103.9 fL (80.0-100.0); Macrocytosis Moderate; Mean Platelet Volume 6.7; Monocytes # (A) 0.4 k/uL (0-1.0); Monocytes % (A) 7 %; Neutrophils % (A) 61 %; Platelet Count 178 k/uL (150-450); RBC 2.68 m/uL (3.80-5.40); RDW 18.2 % (11.5-15.5); WBC 4.9 k/uL (3.8-10.6)
[2018-04-14 09:35] LABS: Anion Gap 3 mmol/L; Blood Urea Nitrogen 13 mg/dL (7-17); Calcium 8.4 mg/dL (8.4-10.2); Carbon Dioxide 25 mmol/L (22-30); Chloride 108 mmol/L (98-107); Glucose 101 mg/dL (74-99); Magnesium 1.8 mg/dL (1.6-2.3); Phosphorus 3.2 mg/dL (2.5-4.5); Potassium 4.9 mmol/L (3.5-5.1); Sodium 136 mmol/L (137-145)
--- NOTE | 2018-04-14 10:45 | P.PN ---
Subjective Progress Note Date: 04/14/18 Principal diagnosis: diarrhea Diarrhea has improved but not functional she's passed 7 bowel movements since 6 PM. Abdominal cramping improved. Receiving alternating doses of Imodium and Lomotil. No fever or bleeding Objective - Vital Signs Vital signs: Vital Signs Temp 98 F 04/14/18 05:00 Pulse 83 04/14/18 05:00 Resp 18 04/14/18 05:00 BP 109/69 04/14/18 05:00 Pulse Ox 99 04/14/18 05:00 Intake & Output 04/13/18 04/14/18 04/14/18 18:59 06:59 18:59 Intake Total 1036.1667 960 Balance 1036.1667 960 Weight 60.9 kg 60 kg Intake: Intake, IV Titration 1036.1667 300 Amount Mvi, Adult No.4 with Vit 1036.1667 K 10 ml Trace (Conc-1Ml/ Dose) 1 ml Sodium Acetate 35 meq Potassium Phosphate 20 mmol Magnesium Sulfate gm 0.5 gm In Amino Acid 5%-D15w 1,000 ml @ 83 mls/hr IV . BY DURATION [facility] Rx#: [id number] cefTRIAXone 2 gm In 300 Sodium Chloride 0.9% 50 ml @ 100 mls/hr IVPB Q24HR [facility] Rx#:[id number] Oral 250 TPN/PPN 320 Sodium Acetate 35 meq 320 Potassium Phosphate 20 mmol Magnesium Sulfate gm 0.5 gm In Amino Acid 5%- D15w 1,000 ml @ 83 mls/hr IV .BY DURATION [facility] Rx#: [id number] Lipid 90 Sodium Acetate 35 meq 90 Potassium Phosphate 20 mmol Magnesium Sulfate gm 0.5 gm In Amino Acid 5%- D15w 1,000 ml @ 83 mls/hr IV .BY DURATION [facility] Rx#: [id number] Other: Voiding Method Toilet Toilet # Voids 2 4 - Exam General appearance: The patient is alert, oriented, in no acute distress. HET: Head is normocephalic and atraumatic. Pupils are equal and reactive. Oropharynx is clear without lesions. Neck: Supple without lymphadenopathy. Trachea midline. Heart: S1 S2. Regular rate and rhythm. Lungs: No crackles or wheezes are heard. Abdomen: Soft, mild diffuse tenderness across mid abdomen, nondistended with bowel sounds. No peritoneal signs. No palpable organomegaly or masses. Extremities: Normal skin color and turgor. No cyanosis, rash, ulceration, clubbing, or edema. Radial and pedal pulses are 2/4 bilaterally. Neurological: No focal deficits. Strength and sensation are grossly intact. - Labs CBC & Chem 7: 04/14/18 08:19 04/14/18 08:19 Labs: Abnormal Lab Results - Last 24 Hours (Table) 04/13/18 04/13/18 04/13/18 Range/Units 11:28 17:19 23:34 RBC (3.80-5.40) m/uL Hgb (11.4-16.0) gm/dL Hct (34.0-46.0) % MCV (80.0-100.0) fL MCH (25.0-35.0) pg RDW (11.5-15.5) % Sodium (137-145) mmol/L Chloride (98-107) mmol/L Glucose (74-99) mg/dL POC Glucose (mg/dL) 120 H 108 H 142 H (75-99) mg/dL 04/14/18 04/14/18 Range/Units 08:19 08:19 RBC 2.68 L (3.80-5.40) m/uL Hgb 9.6 L (11.4-16.0) gm/dL Hct 27.9 L (34.0-46.0) % MCV 103.9 H (80.0-100.0) fL MCH 35.6 H (25.0-35.0) pg RDW 18.2 H (11.5-15.5) % Sodium 136 L (137-145) mmol/L Chloride 108 H (98-107) mmol/L Glucose 101 H (74-99) mg/dL POC Glucose (mg/dL) (75-99) mg/dL Assessment and Plan (1) Diarrhea Current Visit: Yes Status: Acute Priority: High Code(s): R19.7 - DIARRHEA , UNSPECIFIED SNOMED Code(s): 52115016 (2) Colon cancer Current Visit: Yes Status: Acute Priority: High Code(s): C18.9 - MALIGNANT NEOPLASM OF COLON, UNSPECIFIED SNOMED Code(s): 900837525 Plan: 1. Diet as tolerated will advance to low residue. 2. Change Bentyl 20 mg scheduled TID. 3. Continue Imodium 4 mg 4 times a day will increase Lomotil every 4 hours total of 6 doses in 24 hours. We'll continue to follow closely. Assessment and plan a care discussed with Dr. Villagomez
--- NOTE | 2018-04-14 11:13 | P.PN ---
Subjective Patient is seen in follow-up for acute kidney injury which has resolved. Currently on clear liquid diet but still having diarrhea. Admits to good urine output. She is maintained on TPN. She is also on IV fluids running at 50 mL an hour. No chest pain or shortness of breath. Vital signs are stable. General: The patient appeared well nourished and normally developed. HEENT: Head exam is unremarkable. Neck is without jugular venous distension. LUNGS: Lungs are clear to auscultation and percussion. Breath sounds decreased. HEART: Rate and Rhythm are regular. First and second heart sounds normal. No murmurs, rubs or gallops. ABDOMEN: Abdominal exam reveals normal bowel sounds. Non-tender and non- distended. No evidence of peritonitis. EXTREMITITES: No clubbing, cyanosis, or edema. Objective - Vital Signs Vital signs: Vital Signs Temp 98 F 04/14/18 05:00 Pulse 83 04/14/18 05:00 Resp 18 04/14/18 05:00 BP 109/69 04/14/18 05:00 Pulse Ox 99 04/14/18 05:00 Intake & Output 04/13/18 04/14/18 04/14/18 18:59 06:59 18:59 Intake Total 1036.1667 960 Balance 1036.1667 960 Weight 60.9 kg 60 kg Intake: Intake, IV Titration 1036.1667 300 Amount Mvi, Adult No.4 with Vit 1036.1667 K 10 ml Trace (Conc-1Ml/ Dose) 1 ml Sodium Acetate 35 meq Potassium Phosphate 20 mmol Magnesium Sulfate gm 0.5 gm In Amino Acid 5%-D15w 1,000 ml @ 83 mls/hr IV . BY DURATION [facility] Rx#: [id number] cefTRIAXone 2 gm In 300 Sodium Chloride 0.9% 50 ml @ 100 mls/hr IVPB Q24HR [facility] Rx#:[id number] Oral 250 TPN/PPN 320 Sodium Acetate 35 meq 320 Potassium Phosphate 20 mmol Magnesium Sulfate gm 0.5 gm In Amino Acid 5%- D15w 1,000 ml @ 83 mls/hr IV .BY DURATION [facility] Rx#: [id number] Lipid 90 Sodium Acetate 35 meq 90 Potassium Phosphate 20 mmol Magnesium Sulfate gm 0.5 gm In Amino Acid 5%- D15w 1,000 ml @ 83 mls/hr IV .BY DURATION [facility] Rx#: [id number] Other: Voiding Method Toilet Toilet # Voids 2 4 - Labs CBC & Chem 7: 04/14/18 08:19 04/14/18 08:19 Labs: Abnormal Lab Results - Last 24 Hours (Table) 04/13/18 04/13/18 04/13/18 Range/Units 11:28 17:19 23:34 RBC (3.80-5.40) m/uL Hgb (11.4-16.0) gm/dL Hct (34.0-46.0) % MCV (80.0-100.0) fL MCH (25.0-35.0) pg RDW (11.5-15.5) % Sodium (137-145) mmol/L Chloride (98-107) mmol/L Glucose (74-99) mg/dL POC Glucose (mg/dL) 120 H 108 H 142 H (75-99) mg/dL 04/14/18 04/14/18 Range/Units 08:19 08:19 RBC 2.68 L (3.80-5.40) m/uL Hgb 9.6 L (11.4-16.0) gm/dL Hct 27.9 L (34.0-46.0) % MCV 103.9 H (80.0-100.0) fL MCH 35.6 H (25.0-35.0) pg RDW 18.2 H (11.5-15.5) % Sodium 136 L (137-145) mmol/L Chloride 108 H (98-107) mmol/L Glucose 101 H (74-99) mg/dL POC Glucose (mg/dL) (75-99) mg/dL Assessment and Plan Plan: Assessment: 1. Acute kidney injury mostly prerenal secondary to intravascular volume depletion from diarrhea improved with IV hydration. GFR back to baseline. 2. Colon cancer status post right hemicolectomy. 3. Metabolic acidosis secondary to IV fluids and GI losses maintain on oral sodium bicarbonate. 4. Hypokalemia from poor oral intake maintained on potassium supplementation. Better. 5. Hypophosphatemia and hypomagnesemia status post placement. Better. Plan: Maintain TPN. Maintain normal saline at 50 mL an hour. Repeat electrolytes in the morning. Discontinue potassium supplementation.
[2018-04-14] MEDS: CHOLECALCIFEROL 1,000 UNIT TAB PO SCH (12:02)
[2018-04-14] MEDS: CYANOCOBALAMIN 500 MCG TAB PO SCH (12:10)
--- NOTE | 2018-04-14 13:13 | P.PN ---
Subjective Progress Note Date: 04/14/18 Principal diagnosis: Dehydration, PPE, intractable diarrhea secondary to cytotoxic drugs In f/u pt has had 4 diarrhea stools since midnight, cramping is better, no blood or mucus, nausea, skin on hands is improving. Objective - Vital Signs Vital signs: Vital Signs Temp 97.9 F 04/14/18 11:44 Pulse 66 04/14/18 11:44 Resp 16 04/14/18 11:44 BP 97/58 04/14/18 11:44 Pulse Ox 99 04/14/18 11:44 Intake & Output 04/13/18 04/14/18 04/14/18 18:59 06:59 18:59 Intake Total 1036.1667 960 Balance 1036.1667 960 Weight 60.9 kg 60 kg Intake: Intake, IV Titration 1036.1667 300 Amount Mvi, Adult No.4 with Vit 1036.1667 K 10 ml Trace (Conc-1Ml/ Dose) 1 ml Sodium Acetate 35 meq Potassium Phosphate 20 mmol Magnesium Sulfate gm 0.5 gm In Amino Acid 5%-D15w 1,000 ml @ 83 mls/hr IV . BY DURATION [facility] Rx#: [id number] cefTRIAXone 2 gm In 300 Sodium Chloride 0.9% 50 ml @ 100 mls/hr IVPB Q24HR [facility] Rx#:[id number] Oral 250 TPN/PPN 320 Sodium Acetate 35 meq 320 Potassium Phosphate 20 mmol Magnesium Sulfate gm 0.5 gm In Amino Acid 5%- D15w 1,000 ml @ 83 mls/hr IV .BY DURATION [facility] Rx#: [id number] Lipid 90 Sodium Acetate 35 meq 90 Potassium Phosphate 20 mmol Magnesium Sulfate gm 0.5 gm In Amino Acid 5%- D15w 1,000 ml @ 83 mls/hr IV .BY DURATION [facility] Rx#: [id number] Other: Voiding Method Toilet Toilet # Voids 2 4 - Constitutional General appearance: Present: cooperative, no acute distress, thin - EENT Eyes: Present: anicteric sclerae, EOMI ENT: Present: hearing grossly normal - Respiratory Respiratory: bilateral: CTA - Cardiovascular Heart sounds: normal: S1, S2 - Peripheral edema leg Peripheral Edema: bilateral: None - Gastrointestinal General gastrointestinal: Present: soft, tenderness Localized gastrointestinal: tender: diffuse (mild, no rebound) - Integumentary Integumentary: Present: pale - Neurologic Neurologic: Present: CNII-XII intact - Musculoskeletal Musculoskeletal: Present: strength equal bilaterally - Psychiatric Psychiatric: Present: A&O x's 3, appropriate affect, intact judgment & insight - Labs CBC & Chem 7: 04/14/18 08:19 04/14/18 08:19 Labs: Abnormal Lab Results - Last 24 Hours (Table) 04/13/18 04/13/18 04/14/18 Range/Units 17:19 23:34 08:19 RBC 2.68 L (3.80-5.40) m/uL Hgb 9.6 L (11.4-16.0) gm/dL Hct 27.9 L (34.0-46.0) % MCV 103.9 H (80.0-100.0) fL MCH 35.6 H (25.0-35.0) pg RDW 18.2 H (11.5-15.5) % Sodium (137-145) mmol/L Chloride (98-107) mmol/L Glucose (74-99) mg/dL POC Glucose (mg/dL) 108 H 142 H (75-99) mg/dL 04/14/18 Range/Units 08:19 RBC (3.80-5.40) m/uL Hgb (11.4-16.0) gm/dL Hct (34.0-46.0) % MCV (80.0-100.0) fL MCH (25.0-35.0) pg RDW (11.5-15.5) % Sodium 136 L (137-145) mmol/L Chloride 108 H (98-107) mmol/L Glucose 101 H (74-99) mg/dL POC Glucose (mg/dL) (75-99) mg/dL Assessment and Plan (1) Drug-induced diarrhea Narrative/Plan: Cont IV fluids, TPN. Gastroenterology following and making adjustment to medications. Fewer episodes compared to onset. Discussed case with GI EDUCATION DIAGNOSTICIAN. Current Visit: Yes Status: Acute Priority: High Code(s): K52.1 - TOXIC GASTROENTERITIS AND COLITIS SNOMED Code(s): 479505349 (2) Drug-induced mucositis Current Visit: Yes Status: Resolved Priority: High Code(s): K12.32 - ORAL MUCOSITIS (ULCERATIVE) DUE TO OTHER DRUGS SNOMED Code(s): 853045287 (3) Palmar plantar erythrodysaesthesia due to cytotoxic therapy Narrative/Plan: Continues to improve, no new symptoms Current Visit: Yes Status: Acute Priority: High Code(s): L27.1 - LOC SKIN ERUPTION DUE TO DRUGS AND MEDS TAKEN INTERNALLY; T45.1X5A - ADVERSE EFFECT OF ANTINEOPLASTIC AND IMMUNOSUP DRUGS, INIT SNOMED Code(s): 903486956 (4) Breast cancer Narrative/Plan: Pt will continue tamoxifen as prescribed Current Visit: No Status: Chronic Priority: Medium Code(s): C50.919 - MALIGNANT NEOPLASM OF UNSP SITE OF UNSPECIFIED FEMALE BREAST SNOMED Code(s): 682359808 (5) Colon cancer Narrative/Plan: Pt is s/p 2nd 14 day cycle of Xeloda with grade 3-4 drug toxicity of diarrhea, persistent, but maybe grade 2-3 now. Grade 2-3 mucositis and PPE, which have resolved to grade 0-1. Pt was being treated adjuvantly for a IIA colon adencarcinoma. There are other options to reduce the risk of recurrence in this group stage but, 5FU is typically the backbone to all the regimens. Dr. James will meet with pt to discuss other options for treatment, prognosis if no other treatment is done and follow up. Cont Strict I's and O's Current Visit: Yes Status: Acute Priority: High Code(s): C18.9 - MALIGNANT NEOPLASM OF COLON, UNSPECIFIED SNOMED Code(s): 493149529 (6) Dehydration Narrative/Plan: Improving Current Visit: Yes Status: Acute Priority: High Code(s): E86.0 - DEHYDRATION SNOMED Code(s): 83879332 (7) Electrolyte depletion Narrative/Plan: Nephrology following, being managed with supplements and TPN Current Visit: Yes Status: Acute Priority: Medium Code(s): E87.8 - OTH DISORDERS OF ELECTROLYTE AND FLUID BALANCE, NEC SNOMED Code(s): 99176218 (8) Antineoplastic chemotherapy induced anemia Narrative/Plan: Stable Current Visit: Yes Status: Acute Priority: Medium Code(s): D64.81 - ANEMIA DUE TO ANTINEOPLASTIC CHEMOTHERAPY; T45.1X5A - ADVERSE EFFECT OF ANTINEOPLASTIC AND IMMUNOSUP DRUGS, INIT SNOMED Code(s): 731218821
[2018-04-14 13:28] LABS: Glucose,Whole Blood 106 mg/dL (75-99)
--- NOTE | 2018-04-14 14:06 | P.PN ---
Subjective Progress Note Date: 04/14/18 This is a 62-year-old female patient of Dr. Asif with past medical history of hypertension, breast cancer, colon cancer. Regarding colon cancer, patient underwent a right colectomy done with Dr. Kulkarni on 12/31/2017, she has now completed her second round of chemotherapy and developed severe diarrhea, vomiting and couldn't keep anything down. She has had loose diarrhea almost every half hour up to 20 times per day. She denies having any history of DVT since diagnosed with cancer. She has had weight loss over the past year both intentional and from the colon cancer. She states she saw Dr. James on Thursday and there is concern that it could be related to a urinary tract infection and she was started on doxycycline. Patient tried taking Imodium without any improvement of her loose stools. She is currently on Xeloda orally twice daily for colon cancer and tamoxifen 20 mg daily for breast cancer. She is status post left breast lumpectomy and radiation treatment. Patient came into [facility] for evaluation. Patient was afebrile, heart rate in the low 100s. WBD, hemoglobin and platelets within normal limits. Sodium 128, potassium 3.9, chloride 95, CO2 20 , BUN 34 and creatinine 1.48, blood sugar 134. Patient denies history of diabetes. Liver function tests within normal limits, albumin 2.9. Stool for occult blood and WBC positive. C. difficile toxin negative. Urinalysis was cloudy, leukoesterase large, nitrate negative, bacteria rare, squamous cell 5, hyalin casts 68. Urine and stool cultures in progress. KUB reveals no evidence of bowel obstruction or free intraperitoneal air. Generalized colonic air-fluid levels suggest colonic ileus or liquid stool related to colitis or enteritis 04/07: Patient is followed by nephrology and oncology. She states she is finally feeling improved from yesterday. Case discussed with Dr. James and he recommends monitoring for another day and have not significantly improved, consider nothing by mouth and TPN for bowel rest. No antibiotics are recommended at this time. She has been afebrile, heart rate running in the 70s and 80s, blood pressure 103/63 and pulse ox 99% on room air. Sodium is up to 120, potassium 2.8, chloride 105 and CO2 18, BUN 26 and creatinine 0.97. Patient is currently on a clear liquid diet. 04/08: Patient states that she is feeling better from yesterday but continues to have stools every half to one hour. Her heart rate is improved today. She has had potassium replacement and repeat again today is only at 2.[address] Hickman is provided replacement orders for 140 mEq. Urine culture is positive for Anna only. She has been on ceftriaxone. Await further recommendations from oncology. She is currently eating very little and is on a clear liquid diet 04/09: Patient is status post potassium replacement currently at 4.3, sodium 134 , chloride 115, CO2 16, creatinine 0.71. Ionized calcium 6, phosphorus 1.6, AST 11, albumin 1.8. H. pylori came back not detected. Urine positive for Anna only. Patient had PICC line placed and was started on TPN yesterday afternoon and is nothing by mouth except for ice chips, medications, popsicles and gum. Diarrhea is slowly improving. She is continued on IV hydration. 04/10: Patient is resting comfortably in bed. Patient states that bowel movements are occurring about every 2-2-1/2 hours and she is able to make it to the bathroom now. Patient was able to get up and perform personal hygiene without any difficulties. Still experiencing some tenderness to the incisional site. Denies any pain or discomfort at this time. Patient was seen by gastroenterology and at this time we will continue to monitor diarrhea. Really C4.2, hemoglobin 9, sodium 134, potassium 4.0, BUN 13, creatinine 0.52, albumin is low as 1.6. 04/11: Patient is resting comfortable in bed. Patient states that she had approximately 5 episodes of diarrhea in a 24 hour period. She is able to make it to the bathroom at each time. Her last episode of diarrhea was around 4:30 this morning. Patient is not complaining of abdominal discomfort she still experiencing some tenderness to the incisional site. She has not had any nausea or vomiting. Albumin continues to be low. We will start her on a clear liquid diet to see if she is able to tolerate it if cleared by GI/oncology. We will also set up social work to assess her home care needs. 04/12: Patient will complete a course of Rocephin and we will discontinue. She states she had sudden onset of diarrhea after eating last evening along with nausea without vomiting. She is back to nothing by mouth status and just try clears for tonight. She's had no diarrhea since 6 AM. She is continued on TPN 04/13: Patient states she is feeling better but continues to have diarrhea starting about half hour after she eats and then about 3 more episodes after that. She is on Questran and Imodium. Plan is to continue TPN until patient is stable for discharge and patient may continue clear liquid diet at home. Plan to continue monitoring. She has been afebrile, heart rate in the 70s and 80s, blood pressure 117/72, pulse ox is 100% on room air. White count is 5.3, hemoglobin 9.7, platelet count 184, creatinine 0.55. Blood sugars run between 120 and 138. 04/14: Patient states she is still having diarrhea but is less frequent. She is going every couple hours between episodes. She is currently on a low residue diet and also on TPN. Imodium has been increased alternating with Lomotil. She is having some abdominal pain but mostly controlled. Bentyl is a 20 mg 3 times daily. White count is 4.9, hemoglobin 9.6, platelet count 178. Sodium 136, potassium 4.9, chloride 108, CO2 25. BUN 13 creatinine 0.56. Capillary blood glucose running between 93 and 106. Patient has been afebrile, blood pressure 97/58, heart rate 60s to 80s. Pulse ox is 99% on room air. Review of Systems Constitutional: Reports fatigue, Reports poor appetite, Reports weight loss, Denies chills, Denies fever, Denies weakness Eyes: denies blurred vision, denies pain Ears, nose, mouth and throat: Denies dysphagia, Denies headache, Denies hoarseness, Denies sore throat, Denies vertigo Cardiovascular: Denies chest pain, Denies dyspnea on exertion, Denies edema, Denies leg edema, Denies lightheadedness, Denies shortness of breath, Denies syncope Respiratory: Denies cough, Denies cough with sputum, Denies dyspnea, Denies excessive sputum, Denies hemoptysis, Denies home oxygen, Denies wheezing Gastrointestinal: Reports abdominal pain, Reports less frequent diarrhea, Reports loss of appetite, Reports nausea, denies vomiting Genitourinary: Denies dysuria, Denies hematuria Musculoskeletal: Denies frequent falls, Denies gait dysfunction, Denies myalgias Integumentary: Denies pruritus, Denies rash, Denies wounds Neurological: Denies aphasia, Denies change in mentation, Denies change in smell /taste, Denies gait dysfunction, Denies head injury, Denies headaches, Denies numbness, Denies seizures, Denies vertigo, Denies weakness Psychiatric: Denies anxiety, Denies depression Endocrine: Denies fatigue, Denies weight change Objective - Vital Signs Vital signs: Vital Signs Temp 97.9 F 04/14/18 11:44 Pulse 66 04/14/18 11:44 Resp 16 04/14/18 11:44 BP 97/58 04/14/18 11:44 Pulse Ox 99 04/14/18 11:44 Intake & Output 04/13/18 04/14/18 04/14/18 18:59 06:59 18:59 Intake Total 1036.1667 960 Balance 1036.1667 960 Weight 60.9 kg 60 kg Intake: Intake, IV Titration 1036.1667 300 Amount Mvi, Adult No.4 with Vit 1036.1667 K 10 ml Trace (Conc-1Ml/ Dose) 1 ml Sodium Acetate 35 meq Potassium Phosphate 20 mmol Magnesium Sulfate gm 0.5 gm In Amino Acid 5%-D15w 1,000 ml @ 83 mls/hr IV . BY DURATION [facility] Rx#: [id number] cefTRIAXone 2 gm In 300 Sodium Chloride 0.9% 50 ml @ 100 mls/hr IVPB Q24HR [facility] Rx#:[id number] Oral 250 TPN/PPN 320 Sodium Acetate 35 meq 320 Potassium Phosphate 20 mmol Magnesium Sulfate gm 0.5 gm In Amino Acid 5%- D15w 1,000 ml @ 83 mls/hr IV .BY DURATION [facility] Rx#: [id number] Lipid 90 Sodium Acetate 35 meq 90 Potassium Phosphate 20 mmol Magnesium Sulfate gm 0.5 gm In Amino Acid 5%- D15w 1,000 ml @ 83 mls/hr IV .BY DURATION [facility] Rx#: [id number] Other: Voiding Method Toilet Toilet # Voids 2 4 - Exam Gen: This is a thin 62-year-old female. She is sitting up in bed in no acute distress. HEENT: Head is atraumatic, normocephalic. Pupils equal, round. Sclerae is anicteric. NECK: Supple. No JVD. No lymphadenopathy. No thyromegaly. LUNGS: Clear to auscultation. No wheezes or rhonchi. No intercostal retractions. HEART: Regular rate and rhythm. No murmur. ABDOMEN: Soft. Bowel sounds are present. No masses. No tenderness. No hepatosplenomegaly. EXTREMITIES: No pedal edema. No calf tenderness. Dorsalis pedis +2 bilaterally. NEUROLOGICAL: Patient is awake, alert and oriented x3. Cranial nerves 2 through 12 are grossly intact. - Labs CBC & Chem 7: 04/14/18 08:19 04/14/18 08:19 Labs: Abnormal Lab Results - Last 24 Hours (Table) 04/13/18 04/13/18 04/14/18 Range/Units 17:19 23:34 08:19 RBC 2.68 L (3.80-5.40) m/uL Hgb 9.6 L (11.4-16.0) gm/dL Hct 27.9 L (34.0-46.0) % MCV 103.9 H (80.0-100.0) fL MCH 35.6 H (25.0-35.0) pg RDW 18.2 H (11.5-15.5) % Sodium (137-145) mmol/L Chloride (98-107) mmol/L Glucose (74-99) mg/dL POC Glucose (mg/dL) 108 H 142 H (75-99) mg/dL 04/14/18 Range/Units 08:19 RBC (3.80-5.40) m/uL Hgb (11.4-16.0) gm/dL Hct (34.0-46.0) % MCV (80.0-100.0) fL MCH (25.0-35.0) pg RDW (11.5-15.5) % Sodium 136 L (137-145) mmol/L Chloride 108 H (98-107) mmol/L Glucose 101 H (74-99) mg/dL POC Glucose (mg/dL) (75-99) mg/dL Assessment and Plan Plan: 1. Acute kidney injury and dehydration secondary to nausea, vomiting and diarrhea. Patient is status post 2 L, continue IV fluids. Continue Imodium for diarrhea, Zofran for nausea. Consult with nephrology appreciated. 2. History of colon cancer status post right colectomy and chemotherapy. Consult with Dr. James. Patient has been on Xeloda. 3. History of breast cancer status post lumpectomy and radiation. Continue tamoxifen. 4. Nausea, vomiting, diarrhea secondary to colitis from Xeloda. Consult with Dr. James. Continue IV fluids, Questran, Imodium. 5. Hypertension. Continue lisinopril 10 mg daily will be resumed. 6. Acute urinary tract infection treated with doxycycline as an outpatient. Discontinue ceftriaxone. Patient treated with IV Diflucan. 7. Hyponatremia secondary to dehydration. Continue IV fluids. 8. DVT prophylaxis. Lovenox daily. 9. GI prophylaxis. Protonix. 10. Hypokalemia secondary to diarrhea. Replaced 11. Hypercalcemia secondary to metabolic acidosis. 12. Hypophosphatemia secondary to decreased oral intake. Replaced. 13. Severe protein calorie malnutrition requiring TPN. Low residue diet. Discharge plan: Return home with home care Impression and plan of care have been directed as dictated by the signing physician. Opal Moreno nurse practitioner acting as scribe for signing physician.
[2018-04-14] MEDS: CHOLESTYRAMINE (WITH SUGAR) 4 GM PACKET PO SCH ×2 (15:21→17:06)
[2018-04-14] MEDS: FAT EMULSION 20% 250 ML IV SCH (17:06)
[2018-04-14 17:44] LABS: Glucose,Whole Blood 117 mg/dL (75-99)
[2018-04-14 23:50] LABS: Glucose,Whole Blood 123 mg/dL (75-99)
[2018-04-15] MEDS: LOPERAMIDE 2 MG CAP PO SCH ×4 (04:02→20:11)
[2018-04-15] MEDS: DIPHENOX-ATROP 2.5-0.025 MG 1 EACH TAB PO SCH ×5 (04:02→19:45)
[2018-04-15] MEDS: 0.9% NACL WITH KCL 20 MEQ/L 1,000 ML IV SCH ×2 (04:03→21:48)
[2018-04-15 06:12] LABS: Glucose,Whole Blood 109 mg/dL (75-99)
[2018-04-15] MEDS: INSULIN ASPART (NovoLOG) 100 UNIT/ML VIAL SQ SCH ×3 (06:13→17:44)
[2018-04-15 07:20] LABS: Anion Gap 2 mmol/L; Blood Urea Nitrogen 16 mg/dL (7-17); Calcium 8.3 mg/dL (8.4-10.2); Carbon Dioxide 27 mmol/L (22-30); Chloride 109 mmol/L (98-107); Glucose 101 mg/dL (74-99); Magnesium 1.8 mg/dL (1.6-2.3); Phosphorus 3.7 mg/dL (2.5-4.5); Potassium 4.5 mmol/L (3.5-5.1); Sodium 138 mmol/L (137-145)
[2018-04-15] MEDS: LISINOPRIL 10 MG TAB PO SCH (08:42)
[2018-04-15] MEDS: SODIUM BICARBONATE TAB 650 MG TAB PO SCH ×4 (08:42→23:04)
[2018-04-15] MEDS: CHOLECALCIFEROL 1,000 UNIT TAB PO SCH (08:42)
[2018-04-15] MEDS: PANTOPRAZOLE 40 MG TABLET PO SCH (08:42)
[2018-04-15] MEDS: ASPIRIN 81 MG PO SCH (08:43)
[2018-04-15] MEDS: ENOXAPARIN 40 MG/0.4 ML SYRINGE SQ SCH (08:43)
[2018-04-15] MEDS: FERROUS SULFATE 325 MG TAB PO SCH (08:43)
[2018-04-15] MEDS: DICYCLOMINE 10 MG CAP PO SCH ×3 (08:43→22:36)
[2018-04-15] MEDS: HYDROCORTISONE 1% CREAM 454 GM JAR TOPICAL SCH ×4 (08:44→23:03)
[2018-04-15] MEDS: PETROLATUM, WHITE OINT 50 GM TUBE TOPICAL SCH ×4 (08:44→23:03)
[2018-04-15] MEDS: TAMOXIFEN 10 MG TAB PO SCH (08:44)
[2018-04-15] MEDS: MAG HYDROX/AL HYDROX/SIMETH 30 ML, LIDOCAINE VISCOUS 30 ML, diphenhydrAMINE ELIXIR 75 M... PO SCH ×12 (08:45→23:03)
[2018-04-15] MEDS: CHOLESTYRAMINE (WITH SUGAR) 4 GM PACKET PO SCH ×2 (08:46→14:01)
--- NOTE | 2018-04-15 10:12 | P.PN ---
Subjective Patient is seen in follow-up for acute kidney injury which has resolved. Currently on low fiber diet and had no episodes of diarrhea overnight. Admits to good urine output. She is maintained on TPN. She is also on IV fluids running at 50 mL an hour. No chest pain or shortness of breath. Vital signs are stable. General: The patient appeared well nourished and normally developed. HEENT: Head exam is unremarkable. Neck is without jugular venous distension. LUNGS: Lungs are clear to auscultation and percussion. Breath sounds decreased. HEART: Rate and Rhythm are regular. First and second heart sounds normal. No murmurs, rubs or gallops. ABDOMEN: Abdominal exam reveals normal bowel sounds. Non-tender and non- distended. No evidence of peritonitis. EXTREMITITES: No clubbing, cyanosis, or edema. Objective - Vital Signs Vital signs: Vital Signs Temp 98.7 F 04/15/18 04:37 Pulse 75 04/15/18 04:37 Resp 18 04/15/18 04:37 BP 93/60 04/15/18 04:37 Pulse Ox 100 04/15/18 04:37 Intake & Output 04/14/18 04/15/18 04/15/18 18:59 06:59 18:59 Intake Total 1904 1368.1667 Balance 1904 1368.1667 Weight 60.1 kg Intake: IV 332 Mvi, Adult No.4 with Vit 332 K 10 ml Trace (Conc-1Ml/ Dose) 1 ml Sodium Acetate 35 meq Potassium Phosphate 20 mmol Magnesium Sulfate gm 0.5 gm In Amino Acid 5%-D15w 1,000 ml @ 83 mls/hr IV . BY DURATION [facility] Rx#: [id number] Intake, IV Titration 400 1036.1667 Amount 0.9% NaCl with KCl 20 Meq 400 /l 1,000 ml @ 50 mls/hr IV .Q20H [facility] Rx#: [id number] Mvi, Adult No.4 with Vit 1036.1667 K 10 ml Trace (Conc-1Ml/ Dose) 1 ml Sodium Acetate 35 meq Potassium Phosphate 20 mmol Magnesium Sulfate gm 0.5 gm In Amino Acid 5%-D15w 1,000 ml @ 83 mls/hr IV . BY DURATION [facility] Rx#: [id number] Oral 840 TPN/PPN 664 Sodium Acetate 35 meq 664 Potassium Phosphate 20 mmol Magnesium Sulfate gm 0.5 gm In Amino Acid 5%- D15w 1,000 ml @ 83 mls/hr IV .BY DURATION [facility] Rx#: [id number] Other: Voiding Method Toilet Toilet # Voids 3 - Labs CBC & Chem 7: 04/14/18 08:19 04/15/18 06:44 Labs: Abnormal Lab Results - Last 24 Hours (Table) 04/14/18 04/14/18 04/14/18 Range/Units 13:26 17:42 23:49 Chloride (98-107) mmol/L Glucose (74-99) mg/dL POC Glucose (mg/dL) 106 H 117 H 123 H (75-99) mg/dL Calcium (8.4-10.2) mg/dL 04/15/18 04/15/18 Range/Units 06:10 06:44 Chloride 109 H (98-107) mmol/L Glucose 101 H (74-99) mg/dL POC Glucose (mg/dL) 109 H (75-99) mg/dL Calcium 8.3 L (8.4-10.2) mg/dL Assessment and Plan Plan: Assessment: 1. Acute kidney injury mostly prerenal secondary to intravascular volume depletion from diarrhea improved with IV hydration. GFR back to baseline. 2. Colon cancer status post right hemicolectomy. 3. Metabolic acidosis secondary to IV fluids and GI losses maintained on oral sodium bicarbonate. 4. Hypokalemia from poor oral intake maintained on potassium supplementation. Better. 5. Hypophosphatemia and hypomagnesemia status post placement. Better. Plan: Maintain TPN. Maintain normal saline at 50 mL an hour - can likely Hep-Lock tomorrow as long as she is able to tolerate oral intake. Repeat electrolytes in the morning. Discontinued potassium supplementation.
[2018-04-15 11:14] LABS: Glucose,Whole Blood 137 mg/dL (75-99)
--- NOTE | 2018-04-15 12:11 | P.PN ---
Subjective Progress Note Date: 04/15/18 Principal diagnosis: diarrhea Diarrhea much improved no BM since 6 PM last night. Denies abdominal pain. Tolerating advance diet. Receiving alternating doses of Imodium and Lomotil. No fever or bleeding. Potassium 4.5. Sodium 138. BUN 16. Creatinine 0.5. Magnesium 1.8. Objective - Vital Signs Vital signs: Vital Signs Temp 98.7 F 04/15/18 04:37 Pulse 75 04/15/18 04:37 Resp 18 04/15/18 04:37 BP 93/60 04/15/18 04:37 Pulse Ox 100 04/15/18 04:37 Intake & Output 04/14/18 04/15/18 04/15/18 18:59 06:59 18:59 Intake Total 1904 1368.1667 Balance 1904 1368.1667 Weight 60.1 kg Intake: IV 332 Mvi, Adult No.4 with Vit 332 K 10 ml Trace (Conc-1Ml/ Dose) 1 ml Sodium Acetate 35 meq Potassium Phosphate 20 mmol Magnesium Sulfate gm 0.5 gm In Amino Acid 5%-D15w 1,000 ml @ 83 mls/hr IV . BY DURATION [facility] Rx#: [id number] Intake, IV Titration 400 1036.1667 Amount 0.9% NaCl with KCl 20 Meq 400 /l 1,000 ml @ 50 mls/hr IV .Q20H [facility] Rx#: [id number] Mvi, Adult No.4 with Vit 1036.1667 K 10 ml Trace (Conc-1Ml/ Dose) 1 ml Sodium Acetate 35 meq Potassium Phosphate 20 mmol Magnesium Sulfate gm 0.5 gm In Amino Acid 5%-D15w 1,000 ml @ 83 mls/hr IV . BY DURATION [facility] Rx#: [id number] Oral 840 TPN/PPN 664 Sodium Acetate 35 meq 664 Potassium Phosphate 20 mmol Magnesium Sulfate gm 0.5 gm In Amino Acid 5%- D15w 1,000 ml @ 83 mls/hr IV .BY DURATION [facility] Rx#: [id number] Other: Voiding Method Toilet Toilet # Voids 3 - Exam General appearance: The patient is alert, oriented, in no acute distress. HET: Head is normocephalic and atraumatic. Pupils are equal and reactive. Oropharynx is clear without lesions. Neck: Supple without lymphadenopathy. Trachea midline. Heart: S1 S2. Regular rate and rhythm. Lungs: No crackles or wheezes are heard. Abdomen: Soft, nontender, nondistended with bowel sounds. No peritoneal signs. No palpable organomegaly or masses. Extremities: Normal skin color and turgor. No cyanosis, rash, ulceration, clubbing, or edema. Radial and pedal pulses are 2/4 bilaterally. Neurological: No focal deficits. Strength and sensation are grossly intact. - Labs CBC & Chem 7: 04/14/18 08:19 04/15/18 06:44 Labs: Abnormal Lab Results - Last 24 Hours (Table) 04/14/18 04/14/18 04/14/18 Range/Units 13:26 17:42 23:49 Chloride (98-107) mmol/L Glucose (74-99) mg/dL POC Glucose (mg/dL) 106 H 117 H 123 H (75-99) mg/dL Calcium (8.4-10.2) mg/dL 04/15/18 04/15/18 04/15/18 Range/Units 06:10 06:44 11:13 Chloride 109 H (98-107) mmol/L Glucose 101 H (74-99) mg/dL POC Glucose (mg/dL) 109 H 137 H (75-99) mg/dL Calcium 8.3 L (8.4-10.2) mg/dL Assessment and Plan (1) Diarrhea Narrative/Plan: Improving with alternating doses of Imodium and Lomotil. Current Visit: Yes Status: Acute Priority: High Code(s): R19.7 - DIARRHEA , UNSPECIFIED SNOMED Code(s): 68095784 (2) Colon cancer Current Visit: Yes Status: Acute Priority: High Code(s): C18.9 - MALIGNANT NEOPLASM OF COLON, UNSPECIFIED SNOMED Code(s): 053837895 Plan: 1. Diet as tolerated. 2. Continue Bentyl 20 mg scheduled TID. 3. Continue Imodium 4 mg 4 times a day continue 2.5 mg Lomotil every 4 hours total of 6 doses in 24 hours. Patient was advised if no BM at 6 PM tonight she can decline doses of Imodium and Lomotil to avoid constipation and titrate as needed through the night. Patient was advised to continue record keeping of her bowel movements and to notify nursing staff if she has increased abdominal pain bloatedness rectal bleeding or fever. Will reevaluate tomorrow and discuss discharge antidiarrheal therapy. Patient states cholestyramine is not palatable increased nausea therefore will discontinue. We'll continue to follow closely. Assessment and plan a care discussed with Dr. Villagomez
--- NOTE | 2018-04-15 15:26 | P.PN ---
Subjective Progress Note Date: 04/15/18 This is a 62-year-old female patient of Dr. Asif with past medical history of hypertension, breast cancer, colon cancer. Regarding colon cancer, patient underwent a right colectomy done with Dr. Kulkarni on 12/31/2017, she has now completed her second round of chemotherapy and developed severe diarrhea, vomiting and couldn't keep anything down. She has had loose diarrhea almost every half hour up to 20 times per day. She denies having any history of DVT since diagnosed with cancer. She has had weight loss over the past year both intentional and from the colon cancer. She states she saw Dr. James on Thursday and there is concern that it could be related to a urinary tract infection and she was started on doxycycline. Patient tried taking Imodium without any improvement of her loose stools. She is currently on Xeloda orally twice daily for colon cancer and tamoxifen 20 mg daily for breast cancer. She is status post left breast lumpectomy and radiation treatment. Patient came into [facility] emergency [facility] for evaluation. Patient was afebrile, heart rate in the low 100s. WBD, hemoglobin and platelets within normal limits. Sodium 128, potassium 3.9, chloride 95, CO2 20 , BUN 34 and creatinine 1.48, blood sugar 134. Patient denies history of diabetes. Liver function tests within normal limits, albumin 2.9. Stool for occult blood and WBC positive. C. difficile toxin negative. Urinalysis was cloudy, leukoesterase large, nitrate negative, bacteria rare, squamous cell 5, hyalin casts 68. Urine and stool cultures in progress. KUB reveals no evidence of bowel obstruction or free intraperitoneal air. Generalized colonic air-fluid levels suggest colonic ileus or liquid stool related to colitis or enteritis 04/07: Patient is followed by nephrology and oncology. She states she is finally feeling improved from yesterday. Case discussed with Dr. James and he recommends monitoring for another day and have not significantly improved, consider nothing by mouth and TPN for bowel rest. No antibiotics are recommended at this time. She has been afebrile, heart rate running in the 70s and 80s, blood pressure 103/63 and pulse ox 99% on room air. Sodium is up to 120, potassium 2.8, chloride 105 and CO2 18, BUN 26 and creatinine 0.97. Patient is currently on a clear liquid diet. 04/08: Patient states that she is feeling better from yesterday but continues to have stools every half to one hour. Her heart rate is improved today. She has had potassium replacement and repeat again today is only at 2.[address] Hickman is provided replacement orders for 140 mEq. Urine culture is positive for Anan only. She has been on ceftriaxone. Await further recommendations from oncology. She is currently eating very little and is on a clear liquid diet 04/09: Patient is status post potassium replacement currently at 4.3, sodium 134 , chloride 115, CO2 16, creatinine 0.71. Ionized calcium 6, phosphorus 1.6, AST 11, albumin 1.8. H. pylori came back not detected. Urine positive for Anna only. Patient had PICC line placed and was started on TPN yesterday afternoon and is nothing by mouth except for ice chips, medications, popsicles and gum. Diarrhea is slowly improving. She is continued on IV hydration. 04/10: Patient is resting comfortably in bed. Patient states that bowel movements are occurring about every 2-2-1/2 hours and she is able to make it to the bathroom now. Patient was able to get up and perform personal hygiene without any difficulties. Still experiencing some tenderness to the incisional site. Denies any pain or discomfort at this time. Patient was seen by gastroenterology and at this time we will continue to monitor diarrhea. Really C4.2, hemoglobin 9, sodium 134, potassium 4.0, BUN 13, creatinine 0.52, albumin is low as 1.6. 04/11: Patient is resting comfortable in bed. Patient states that she had approximately 5 episodes of diarrhea in a 24 hour period. She is able to make it to the bathroom at each time. Her last episode of diarrhea was around 4:30 this morning. Patient is not complaining of abdominal discomfort she still experiencing some tenderness to the incisional site. She has not had any nausea or vomiting. Albumin continues to be low. We will start her on a clear liquid diet to see if she is able to tolerate it if cleared by GI/oncology. We will also set up social work to assess her home care needs. 04/12: Patient will complete a course of Rocephin and we will discontinue. She states she had sudden onset of diarrhea after eating last evening along with nausea without vomiting. She is back to nothing by mouth status and just try clears for tonight. She's had no diarrhea since 6 AM. She is continued on TPN 04/13: Patient states she is feeling better but continues to have diarrhea starting about half hour after she eats and then about 3 more episodes after that. She is on Questran and Imodium. Plan is to continue TPN until patient is stable for discharge and patient may continue clear liquid diet at home. Plan to continue monitoring. She has been afebrile, heart rate in the 70s and 80s, blood pressure 117/72, pulse ox is 100% on room air. White count is 5.3, hemoglobin 9.7, platelet count 184, creatinine 0.55. Blood sugars run between 120 and 138. 04/14: Patient states she is still having diarrhea but is less frequent. She is going every couple hours between episodes. She is currently on a low residue diet and also on TPN. Imodium has been increased alternating with Lomotil. She is having some abdominal pain but mostly controlled. Bentyl is a 20 mg 3 times daily. White count is 4.9, hemoglobin 9.6, platelet count 178. Sodium 136, potassium 4.9, chloride 108, CO2 25. BUN 13 creatinine 0.56. Capillary blood glucose running between 93 and 106. Patient has been afebrile, blood pressure 97/58, heart rate 60s to 80s. Pulse ox is 99% on room air. 04/15: She remains afebrile, blood pressure 93/60, pulse ox 100% on room air, heart rate running in the 60s and 70s. Sodium 138, potassium 4.5, chloride 109 , CO2 27, creatinine 0.57. Blood sugars run between 101-123. Patient states that she has not had a bowel movement since 645 last evening. She states she is not eating very much at this point she remains on TPN. Plan to advance diet and most likely discharge home tomorrow. Review of Systems Constitutional: Reports fatigue, Reports poor appetite, Reports weight loss, Denies chills, Denies fever, Denies weakness Eyes: denies blurred vision, denies pain Ears, nose, mouth and throat: Denies dysphagia, Denies headache, Denies hoarseness, Denies sore throat, Denies vertigo Cardiovascular: Denies chest pain, Denies dyspnea on exertion, Denies edema, Denies leg edema, Denies lightheadedness, Denies shortness of breath, Denies syncope Respiratory: Denies cough, Denies cough with sputum, Denies dyspnea, Denies excessive sputum, Denies hemoptysis, Denies home oxygen, Denies wheezing Gastrointestinal: Reports abdominal pain, improved diarrhea, Reports loss of appetite, Reports nausea, denies vomiting Genitourinary: Denies dysuria, Denies hematuria Musculoskeletal: Denies frequent falls, Denies gait dysfunction, Denies myalgias Integumentary: Denies pruritus, Denies rash, Denies wounds Neurological: Denies aphasia, Denies change in mentation, Denies change in smell /taste, Denies gait dysfunction, Denies head injury, Denies headaches, Denies numbness, Denies seizures, Denies vertigo, Denies weakness Psychiatric: Denies anxiety, Denies depression Endocrine: Denies fatigue, Denies weight change Objective - Vital Signs Vital signs: Vital Signs Temp 98.7 F 04/15/18 04:37 Pulse 75 04/15/18 04:37 Resp 18 04/15/18 04:37 BP 93/60 04/15/18 04:37 Pulse Ox 100 04/15/18 04:37 Intake & Output 04/14/18 04/15/18 04/15/18 18:59 06:59 18:59 Intake Total 1904 1368.1667 Balance 1904 1368.1667 Weight 60.1 kg Intake: IV 332 Mvi, Adult No.4 with Vit 332 K 10 ml Trace (Conc-1Ml/ Dose) 1 ml Sodium Acetate 35 meq Potassium Phosphate 20 mmol Magnesium Sulfate gm 0.5 gm In Amino Acid 5%-D15w 1,000 ml @ 83 mls/hr IV . BY DURATION [facility] Rx#: [id number] Intake, IV Titration 400 1036.1667 Amount 0.9% NaCl with KCl 20 Meq 400 /l 1,000 ml @ 50 mls/hr IV .Q20H [facility] Rx#: [id number] Mvi, Adult No.4 with Vit 1036.1667 K 10 ml Trace (Conc-1Ml/ Dose) 1 ml Sodium Acetate 35 meq Potassium Phosphate 20 mmol Magnesium Sulfate gm 0.5 gm In Amino Acid 5%-D15w 1,000 ml @ 83 mls/hr IV . BY DURATION [facility] Rx#: [id number] Oral 840 TPN/PPN 664 Sodium Acetate 35 meq 664 Potassium Phosphate 20 mmol Magnesium Sulfate gm 0.5 gm In Amino Acid 5%- D15w 1,000 ml @ 83 mls/hr IV .BY DURATION [facility] Rx#: [id number] Other: Voiding Method Toilet Toilet # Voids 3 - Exam Gen: This is a thin 62-year-old female. She is sitting in chair in no acute distress. HEENT: Head is atraumatic, normocephalic. Pupils equal, round. Sclerae is anicteric. NECK: Supple. No JVD. No lymphadenopathy. No thyromegaly. LUNGS: Clear to auscultation. No wheezes or rhonchi. No intercostal retractions. HEART: Regular rate and rhythm. No murmur. ABDOMEN: Soft. Bowel sounds are present. No masses. No tenderness. No hepatosplenomegaly. EXTREMITIES: No pedal edema. No calf tenderness. Dorsalis pedis +2 bilaterally. NEUROLOGICAL: Patient is awake, alert and oriented x3. Cranial nerves 2 through 12 are grossly intact. - Labs CBC & Chem 7: 04/14/18 08:19 04/15/18 06:44 Labs: Abnormal Lab Results - Last 24 Hours (Table) 04/14/18 04/14/18 04/14/18 Range/Units 08:19 08:19 13:26 RBC 2.68 L (3.80-5.40) m/uL Hgb 9.6 L (11.4-16.0) gm/dL Hct 27.9 L (34.0-46.0) % MCV 103.9 H (80.0-100.0) fL MCH 35.6 H (25.0-35.0) pg RDW 18.2 H (11.5-15.5) % Sodium 136 L (137-145) mmol/L Chloride 108 H (98-107) mmol/L Glucose 101 H (74-99) mg/dL POC Glucose (mg/dL) 106 H (75-99) mg/dL Calcium (8.4-10.2) mg/dL 04/14/18 04/14/18 04/15/18 Range/Units 17:42 23:49 06:10 RBC (3.80-5.40) m/uL Hgb (11.4-16.0) gm/dL Hct (34.0-46.0) % MCV (80.0-100.0) fL MCH (25.0-35.0) pg RDW (11.5-15.5) % Sodium (137-145) mmol/L Chloride (98-107) mmol/L Glucose (74-99) mg/dL POC Glucose (mg/dL) 117 H 123 H 109 H (75-99) mg/dL Calcium (8.4-10.2) mg/dL 04/15/18 Range/Units 06:44 RBC (3.80-5.40) m/uL Hgb (11.4-16.0) gm/dL Hct (34.0-46.0) % MCV (80.0-100.0) fL MCH (25.0-35.0) pg RDW (11.5-15.5) % Sodium (137-145) mmol/L Chloride 109 H (98-107) mmol/L Glucose 101 H (74-99) mg/dL POC Glucose (mg/dL) (75-99) mg/dL Calcium 8.3 L (8.4-10.2) mg/dL Assessment and Plan Plan: 1. Acute kidney injury and dehydration secondary to nausea, vomiting and diarrhea. Patient is status post 2 L, continue IV fluids. Continue Imodium for diarrhea, Zofran for nausea. Consult with nephrology appreciated. 2. History of colon cancer status post right colectomy and chemotherapy. Consult with Dr. James. Patient has been on Xeloda. 3. History of breast cancer status post lumpectomy and radiation. Continue tamoxifen. 4. Nausea, vomiting, diarrhea secondary to colitis from Xeloda. Consult with Dr. James. Continue IV fluids, Questran, Imodium. 5. Hypertension. Continue lisinopril 10 mg daily will be resumed. 6. Acute urinary tract infection treated with doxycycline as an outpatient. Discontinue ceftriaxone. Patient treated with IV Diflucan. 7. Hyponatremia secondary to dehydration. Continue IV fluids. 8. DVT prophylaxis. Lovenox daily. 9. GI prophylaxis. Protonix. 10. Hypokalemia secondary to diarrhea. Replaced 11. Hypercalcemia secondary to metabolic acidosis. 12. Hypophosphatemia secondary to decreased oral intake. Replaced. 13. Severe protein calorie malnutrition requiring TPN. Low residue diet. Discharge plan: Return home with home care on Thursday Impression and plan of care have been directed as dictated by the signing physician. Opal Mroeno nurse practitioner acting as scribe for signing physician.
[2018-04-15 17:30] LABS: Glucose,Whole Blood 108 mg/dL (75-99)
[2018-04-15] MEDS: FAT EMULSION 20% 250 ML IV SCH (17:49)
--- NOTE | 2018-04-16 00:17 | P.PN ---
Subjective Progress Note Date: 04/15/18 The patient states that she feels much better today. She has not had any diarrhea since 04/14 evening. She has had some solid foods and tolerated it well. She reports feeling hungry. No nausea/vomiting/abdominal pain. Objective - Vital Signs Vital signs: Vital Signs Temp 96.8 F L 04/15/18 20:28 Pulse 77 04/15/18 23:19 Resp 16 04/15/18 23:19 BP 113/56 04/15/18 20:28 Pulse Ox 100 04/15/18 20:28 Intake & Output 04/15/18 04/15/18 04/16/18 06:59 18:59 06:59 Intake Total 1368.1667 2676 788 Output Total 3 Balance 1368.1667 2673 788 Weight 60.1 kg Intake: IV 332 166 Mvi, Adult No.4 with Vit 332 K 10 ml Trace (Conc-1Ml/ Dose) 1 ml Sodium Acetate 35 meq Potassium Phosphate 20 mmol Magnesium Sulfate gm 0.5 gm In Amino Acid 5%-D15w 1,000 ml @ 83 mls/hr IV . BY DURATION [facility] Rx#: [id number] Sodium Acetate 35 meq 166 Potassium Phosphate 20 mmol Magnesium Sulfate gm 0.5 gm In Amino Acid 5%- D15w 1,000 ml @ 83 mls/hr IV .BY DURATION [facility] Rx#: [id number] Intake, IV Titration 1036.1667 1596 142 Amount 0.9% NaCl with KCl 20 Meq 600 100 /l 1,000 ml @ 50 mls/hr IV .Q20H [facility] Rx#: [id number] Fat Emulsion 20% 250 ml @ 42 21 mls/hr IV Q24H [facility] Rx #:[id number] Mvi, Adult No.4 with Vit 1036.1667 K 10 ml Trace (Conc-1Ml/ Dose) 1 ml Sodium Acetate 35 meq Potassium Phosphate 20 mmol Magnesium Sulfate gm 0.5 gm In Amino Acid 5%-D15w 1,000 ml @ 83 mls/hr IV . BY DURATION [facility] Rx#: [id number] Mvi, Adult No.4 with Vit 166 K 10 ml Trace (Conc-1Ml/ Dose) 1 ml Sodium Acetate 35 meq Potassium Phosphate 20 mmol Magnesium Sulfate gm 0.5 gm In Amino Acid 5%-D15w 1,000 ml @ 83 mls/hr IV . BY DURATION [facility] Rx#: [id number] Sodium Acetate 35 meq 830 Potassium Phosphate 20 mmol Magnesium Sulfate gm 0.5 gm In Amino Acid 5%- D15w 1,000 ml @ 83 mls/hr IV .BY DURATION [facility] Rx#: [id number] Oral 1080 480 Output: Urine 3 Other: Voiding Method Toilet Toilet Toilet # Voids 3 4 1 # Bowel Movements 1 - Constitutional General appearance: Present: no acute distress - EENT Eyes: Present: EOMI ENT: Present: hearing grossly normal - Respiratory Respiratory: bilateral: CTA - Cardiovascular Rhythm: regular Heart sounds: normal: S1, S2 - Gastrointestinal General gastrointestinal: Present: normal bowel sounds, soft - Integumentary Integumentary: Present: normal - Neurologic Neurologic: Present: CNII-XII intact - Musculoskeletal Musculoskeletal: Present: strength equal bilaterally - Psychiatric Psychiatric: Present: A&O x's 3, appropriate affect - Labs CBC & Chem 7: 04/14/18 08:19 04/15/18 06:44 Labs: Abnormal Lab Results - Last 24 Hours (Table) 04/14/18 04/15/18 04/15/18 Range/Units 23:49 06:10 06:44 Chloride 109 H (98-107) mmol/L Glucose 101 H (74-99) mg/dL POC Glucose (mg/dL) 123 H 109 H (75-99) mg/dL Calcium 8.3 L (8.4-10.2) mg/dL 04/15/18 04/15/18 Range/Units 11:13 17:17 Chloride (98-107) mmol/L Glucose (74-99) mg/dL POC Glucose (mg/dL) 137 H 108 H (75-99) mg/dL Calcium (8.4-10.2) mg/dL Assessment and Plan (1) Diarrhea Narrative/Plan: Due to Xeloda toxicity. The patient has slowly improved with supportive care, and time off chemotherapy. She feels distantly better today. Frequency of bowel movements is significantly improved. She has advanced her diet somewhat, and has tolerated it well. She is continuing on antidiarrheals. She is considering backing off as she is worried about constipation. At this time the patient appears to have improved significantly. She can potentially be discharged home on antidiarrheals. We also discussed management of antidiarrheals outpatient, as well as how to advance her diet cautiously. 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 Continue supportive care Current Visit: Yes Status: Acute Priority: High Code(s): L27.1 - LOC SKIN ERUPTION DUE TO DRUGS AND MEDS TAKEN INTERNALLY; T45.1X5A - ADVERSE EFFECT OF ANTINEOPLASTIC AND IMMUNOSUP DRUGS, INIT SNOMED Code(s): 703637998 (3) Antineoplastic chemotherapy induced anemia Narrative/Plan: hemoglobin has remained fairly stable during her admission. Continue to monitor. Expect continued improvement with time off chemotherapy Current Visit: Yes Status: Acute Priority: Medium Code(s): D64.81 - ANEMIA DUE TO ANTINEOPLASTIC CHEMOTHERAPY; T45.1X5A - ADVERSE EFFECT OF ANTINEOPLASTIC AND IMMUNOSUP DRUGS, INIT SNOMED Code(s): 568270950 (4) Colon cancer Narrative/Plan: The patient was on chemotherapy for stage II colon cancer. She has had unusual toxicity , just above DPD deficiency. Therefore continuation of treatment, at least at the current dose is not possible. Once the patient is adequately recovered, she'll follow-up in the office. At that time we will discuss resumption of treatment with drastic dose reduction, versus stopping. The latter is not unreasonable to consider, given increased risk of side effects and the fact that the benefit from chemotherapy for her stage II disease is not very large. Current Visit: Yes Status: Acute Priority: High Code(s): C18.9 - MALIGNANT NEOPLASM OF COLON, UNSPECIFIED SNOMED Code(s): 436873074
[2018-04-16 00:53] LABS: Glucose,Whole Blood 100 mg/dL (75-99)
[2018-04-16] MEDS: INSULIN ASPART (NovoLOG) 100 UNIT/ML VIAL SQ SCH ×3 (02:12→11:10)
[2018-04-16] MEDS: DIPHENOX-ATROP 2.5-0.025 MG 1 EACH TAB PO SCH ×4 (02:13→12:31)
[2018-04-16] MEDS: LOPERAMIDE 2 MG CAP PO SCH ×3 (04:27→13:34)
[2018-04-16 05:51] LABS: Glucose,Whole Blood 115 mg/dL (75-99)
[2018-04-16 07:19] VITALS: BP 100/52; PULSE 78; RESP 18; TEMP 98.6
[2018-04-16] MEDS: TAMOXIFEN 10 MG TAB PO SCH (07:52)
[2018-04-16] MEDS: PANTOPRAZOLE 40 MG TABLET PO SCH (07:52)
[2018-04-16] MEDS: ASPIRIN 81 MG PO SCH (07:52)
[2018-04-16] MEDS: DICYCLOMINE 10 MG CAP PO SCH (07:52)
[2018-04-16] MEDS: SODIUM BICARBONATE TAB 650 MG TAB PO SCH ×2 (07:53→12:30)
[2018-04-16] MEDS: HYDROCORTISONE 1% CREAM 454 GM JAR TOPICAL SCH ×2 (07:53→12:31)
[2018-04-16] MEDS: ENOXAPARIN 40 MG/0.4 ML SYRINGE SQ SCH (07:53)
[2018-04-16] MEDS: LISINOPRIL 10 MG TAB PO SCH (07:53)
[2018-04-16] MEDS: PETROLATUM, WHITE OINT 50 GM TUBE TOPICAL SCH ×2 (07:53→12:31)
[2018-04-16] MEDS: FERROUS SULFATE 325 MG TAB PO SCH (07:53)
[2018-04-16] MEDS: MAG HYDROX/AL HYDROX/SIMETH 30 ML, LIDOCAINE VISCOUS 30 ML, diphenhydrAMINE ELIXIR 75 M... PO SCH ×4 (07:53)
[2018-04-16 08:07] LABS: Anion Gap 1 mmol/L; Blood Urea Nitrogen 20 mg/dL (7-17); Carbon Dioxide 29 mmol/L (22-30); Chloride 107 mmol/L (98-107); Glucose 112 mg/dL (74-99); Magnesium 1.8 mg/dL (1.6-2.3); Phosphorus 3.5 mg/dL (2.5-4.5); Potassium 4.6 mmol/L (3.5-5.1); Sodium 137 mmol/L (137-145)
--- NOTE | 2018-04-16 08:37 | P.PN ---
Subjective Patient is seen in follow-up for acute kidney injury which has resolved. Currently on low fiber diet and had no episodes of diarrhea overnight. Admits to good urine output. She is maintained on TPN. She is also on IV fluids running at 50 mL an hour. No chest pain or shortness of breath. No changes overnight. Overall feeling better. Vital signs are stable. General: The patient appeared well nourished and normally developed. HEENT: Head exam is unremarkable. Neck is without jugular venous distension. LUNGS: Lungs are clear to auscultation and percussion. Breath sounds decreased. HEART: Rate and Rhythm are regular. First and second heart sounds normal. No murmurs, rubs or gallops. ABDOMEN: Abdominal exam reveals normal bowel sounds. Non-tender and non- distended. No evidence of peritonitis. EXTREMITITES: No clubbing, cyanosis, or edema. Objective - Vital Signs Vital signs: Vital Signs Temp 98.6 F 04/16/18 07:18 Pulse 78 04/16/18 07:18 Resp 18 04/16/18 07:18 BP 100/52 04/16/18 07:18 Pulse Ox 98 04/16/18 07:18 Intake & Output 04/15/18 04/16/18 04/16/18 18:59 06:59 18:59 Intake Total 2676 2981.95 Output Total 3 Balance 2673 2981.95 Weight 60 kg Intake: IV 664 Sodium Acetate 35 meq 664 Potassium Phosphate 20 mmol Magnesium Sulfate gm 0.5 gm In Amino Acid 5%- D15w 1,000 ml @ 83 mls/hr IV .BY DURATION [facility] Rx#: [id number] Intake, IV Titration 1596 1597.95 Amount 0.9% NaCl with KCl 20 Meq 600 400 /l 1,000 ml @ 50 mls/hr IV .Q20H [facility] Rx#: [id number] Fat Emulsion 20% 250 ml @ 231 21 mls/hr IV Q24H [facility] Rx #:[id number] Mvi, Adult No.4 with Vit 166 966.95 K 10 ml Trace (Conc-1Ml/ Dose) 1 ml Sodium Acetate 35 meq Potassium Phosphate 20 mmol Magnesium Sulfate gm 0.5 gm In Amino Acid 5%-D15w 1,000 ml @ 83 mls/hr IV . BY DURATION [facility] Rx#: [id number] Sodium Acetate 35 meq 830 Potassium Phosphate 20 mmol Magnesium Sulfate gm 0.5 gm In Amino Acid 5%- D15w 1,000 ml @ 83 mls/hr IV .BY DURATION [facility] Rx#: [id number] Oral 1080 720 Output: Urine 3 Other: Voiding Method Toilet Toilet # Voids 4 2 # Bowel Movements 1 - Labs CBC & Chem 7: 04/14/18 08:19 04/16/18 07:04 Labs: Abnormal Lab Results - Last 24 Hours (Table) 04/15/18 04/15/18 04/16/18 Range/Units 11:13 17:17 00:51 BUN (7-17) mg/dL Glucose (74-99) mg/dL POC Glucose (mg/dL) 137 H 108 H 100 H (75-99) mg/dL Calcium (8.4-10.2) mg/dL 04/16/18 04/16/18 Range/Units 05:48 07:04 BUN 20 H (7-17) mg/dL Glucose 112 H (74-99) mg/dL POC Glucose (mg/dL) 115 H (75-99) mg/dL Calcium 8.0 L (8.4-10.2) mg/dL Assessment and Plan Plan: Assessment: 1. Acute kidney injury mostly prerenal secondary to intravascular volume depletion from diarrhea improved with IV hydration. GFR back to baseline. 2. Colon cancer status post right hemicolectomy. 3. Metabolic acidosis secondary to IV fluids and GI losses maintained on oral sodium bicarbonate. 4. Hypokalemia from poor oral intake maintained on potassium supplementation in IV fluids. Better. 5. Hypophosphatemia and hypomagnesemia status post placement. Better. Plan: Hep-Lock IV fluids. Repeat electrolytes in the morning. Discontinued potassium supplementation. Stable to be discharged home from nephrology standpoint.
--- NOTE | 2018-04-16 10:31 | P.PN ---
Subjective Progress Note Date: 04/16/18 Principal diagnosis: diarrhea Diarrhea continues to improve. She had 2 bowel movements yesterday afternoon that were small and a small formed bowel movement this morning. Minimal abdominal discomfort. Afebrile. Tolerating regular diet. Objective - Vital Signs Vital signs: Vital Signs Temp 98.6 F 04/16/18 07:18 Pulse 78 04/16/18 07:18 Resp 18 04/16/18 07:18 BP 100/52 04/16/18 07:18 Pulse Ox 98 04/16/18 07:18 Intake & Output 04/15/18 04/16/18 04/16/18 18:59 06:59 18:59 Intake Total 2676 2981.95 Output Total 3 Balance 2673 2981.95 Weight 60 kg Intake: IV 664 Sodium Acetate 35 meq 664 Potassium Phosphate 20 mmol Magnesium Sulfate gm 0.5 gm In Amino Acid 5%- D15w 1,000 ml @ 83 mls/hr IV .BY DURATION [facility] Rx#: [id number] Intake, IV Titration 1596 1597.95 Amount 0.9% NaCl with KCl 20 Meq 600 400 /l 1,000 ml @ 50 mls/hr IV .Q20H [facility] Rx#: [id number] Fat Emulsion 20% 250 ml @ 231 21 mls/hr IV Q24H [facility] Rx #:[id number] Mvi, Adult No.4 with Vit 166 966.95 K 10 ml Trace (Conc-1Ml/ Dose) 1 ml Sodium Acetate 35 meq Potassium Phosphate 20 mmol Magnesium Sulfate gm 0.5 gm In Amino Acid 5%-D15w 1,000 ml @ 83 mls/hr IV . BY DURATION [facility] Rx#: [id number] Sodium Acetate 35 meq 830 Potassium Phosphate 20 mmol Magnesium Sulfate gm 0.5 gm In Amino Acid 5%- D15w 1,000 ml @ 83 mls/hr IV .BY DURATION [facility] Rx#: [id number] Oral 1080 720 Output: Urine 3 Other: Voiding Method Toilet Toilet # Voids 4 2 # Bowel Movements 1 - Exam General appearance: The patient is alert, oriented, in no acute distress. HET: Head is normocephalic and atraumatic. Pupils are equal and reactive. Oropharynx is clear without lesions. Neck: Supple without lymphadenopathy. Trachea midline. Heart: S1 S2. Regular rate and rhythm. Lungs: No crackles or wheezes are heard. Abdomen: Soft, nontender, nondistended with bowel sounds. No peritoneal signs. No palpable organomegaly or masses. Extremities: Normal skin color and turgor. No cyanosis, rash, ulceration, clubbing, or edema. Radial and pedal pulses are 2/4 bilaterally. Neurological: No focal deficits. Strength and sensation are grossly intact. - Labs CBC & Chem 7: 04/14/18 08:19 04/16/18 07:04 Labs: Abnormal Lab Results - Last 24 Hours (Table) 04/15/18 04/15/18 04/16/18 Range/Units 11:13 17:17 00:51 BUN (7-17) mg/dL Glucose (74-99) mg/dL POC Glucose (mg/dL) 137 H 108 H 100 H (75-99) mg/dL Calcium (8.4-10.2) mg/dL 04/16/18 04/16/18 Range/Units 05:48 07:04 BUN 20 H (7-17) mg/dL Glucose 112 H (74-99) mg/dL POC Glucose (mg/dL) 115 H (75-99) mg/dL Calcium 8.0 L (8.4-10.2) mg/dL Assessment and Plan (1) Diarrhea Narrative/Plan: Improving with alternating doses of Imodium and Lomotil. Current Visit: Yes Status: Acute Priority: High Code(s): R19.7 - DIARRHEA , UNSPECIFIED SNOMED Code(s): 69560874 (2) Colon cancer Current Visit: Yes Status: Acute Priority: High Code(s): C18.9 - MALIGNANT NEOPLASM OF COLON, UNSPECIFIED SNOMED Code(s): 113702378 Plan: 1. Diet as tolerated. Agreeable for discharge. 2. Continue Bentyl 20 mg scheduled TID. 3. Patient was advised to continue Lomotil 1 tablet every 4 hours as needed for diarrhea. If patient has increased/excessive bowel movements in between Lomotil doses she may take 4 mg of Imodium as needed. She was advised to notify practitioner or return to the emergency room she developed rectal bleeding fever or worsening abdominal pain and to discontinue the antidiarrheals. Return to office in 2-3 weeks for reevaluation. Assessment and plan a care discussed with Dr. Villagomez
[2018-04-16 11:00] LABS: Glucose,Whole Blood 108 mg/dL (75-99)
[2018-04-16] MEDS: CHOLECALCIFEROL 1,000 UNIT TAB PO SCH (12:31)
[2018-04-16 13:02] VITALS: BMI 20.7
--- NOTE | 2018-04-16 14:50 | P.DS ---
Providers Date of admission: 04/05/18 17:02 Expected date of discharge: 04/16/18 Attending physician: Josefa Asif Consults: 04/05/18 15:17 Consult Physician Stat Consulting Provider: Vandaan Hickman Consult Reason/Comments: crispin, intractable diarrhea Do you want consulting provider notified?: Yes 04/06/18 11:26 Consult Physician Routine Consulting Provider: Eddie James Consult Reason/Comments: colon ca, Do you want consulting provider notified?: Yes 04/09/18 09:54 Consult Physician Routine Consulting Provider: Kartik Villagomez Consult Reason/Comments: colitis Do you want consulting provider notified?: Yes Primary care physician: Josefa Asif [facility] Course: This is a 62-year-old female patient of Dr. Asif with past medical history of hypertension, breast cancer, colon cancer. Regarding colon cancer, patient underwent a right colectomy done with Dr. Kulkarni on 12/31/2017, she has now completed her second round of chemotherapy and developed severe diarrhea, vomiting and couldn't keep anything down. She has had loose diarrhea almost every half hour up to 20 times per day. She denies having any history of DVT since diagnosed with cancer. She has had weight loss over the past year both intentional and from the colon cancer. She states she saw Dr. James on Thursday and there is concern that it could be related to a urinary tract infection and she was started on doxycycline. Patient tried taking Imodium without any improvement of her loose stools. She is currently on Xeloda orally twice daily for colon cancer and tamoxifen 20 mg daily for breast cancer. She is status post left breast lumpectomy and radiation treatment. Patient came into [facility] emergency center for evaluation. Patient was afebrile, heart rate in the low 100s. WBD, hemoglobin and platelets within normal limits. Sodium 128, potassium 3.9, chloride 95, CO2 20 , BUN 34 and creatinine 1.48, blood sugar 134. Patient denies history of diabetes. Liver function tests within normal limits, albumin 2.9. Stool for occult blood and WBC positive. C. difficile toxin negative. Urinalysis was cloudy, leukoesterase large, nitrate negative, bacteria rare, squamous cell 5, hyalin casts 68. Urine and stool cultures in progress. KUB reveals no evidence of bowel obstruction or free intraperitoneal air. Generalized colonic air-fluid levels suggest colonic ileus or liquid stool related to colitis or enteritis 04/07: Patient is followed by nephrology and oncology. She states she is finally feeling improved from yesterday. Case discussed with Dr. James and he recommends monitoring for another day and have not significantly improved, consider nothing by mouth and TPN for bowel rest. No antibiotics are recommended at this time. She has been afebrile, heart rate running in the 70s and 80s, blood pressure 103/63 and pulse ox 99% on room air. Sodium is up to 120, potassium 2.8, chloride 105 and CO2 18, BUN 26 and creatinine 0.97. Patient is currently on a clear liquid diet. 04/08: Patient states that she is feeling better from yesterday but continues to have stools every half to one hour. Her heart rate is improved today. She has had potassium replacement and repeat again today is only at 2.[address] Hickman is provided replacement orders for 140 mEq. Urine culture is positive for Anna only. She has been on ceftriaxone. Await further recommendations from oncology. She is currently eating very little and is on a clear liquid diet 04/09: Patient is status post potassium replacement currently at 4.3, sodium 134 , chloride 115, CO2 16, creatinine 0.71. Ionized calcium 6, phosphorus 1.6, AST 11, albumin 1.8. H. pylori came back not detected. Urine positive for Anna only. Patient had PICC line placed and was started on TPN yesterday afternoon and is nothing by mouth except for ice chips, medications, popsicles and gum. Diarrhea is slowly improving. She is continued on IV hydration. 04/10: Patient is resting comfortably in bed. Patient states that bowel movements are occurring about every 2-2-1/2 hours and she is able to make it to the bathroom now. Patient was able to get up and perform personal hygiene without any difficulties. Still experiencing some tenderness to the incisional site. Denies any pain or discomfort at this time. Patient was seen by gastroenterology and at this time we will continue to monitor diarrhea. Really C4.2, hemoglobin 9, sodium 134, potassium 4.0, BUN 13, creatinine 0.52, albumin is low as 1.6. 04/11: Patient is resting comfortable in bed. Patient states that she had approximately 5 episodes of diarrhea in a 24 hour period. She is able to make it to the bathroom at each time. Her last episode of diarrhea was around 4:30 this morning. Patient is not complaining of abdominal discomfort she still experiencing some tenderness to the incisional site. She has not had any nausea or vomiting. Albumin continues to be low. We will start her on a clear liquid diet to see if she is able to tolerate it if cleared by GI/oncology. We will also set up social work to assess her home care needs. 04/12: Patient will complete a course of Rocephin and we will discontinue. She states she had sudden onset of diarrhea after eating last evening along with nausea without vomiting. She is back to nothing by mouth status and just try clears for tonight. She's had no diarrhea since 6 AM. She is continued on TPN 04/13: Patient states she is feeling better but continues to have diarrhea starting about half hour after she eats and then about 3 more episodes after that. She is on Questran and Imodium. Plan is to continue TPN until patient is stable for discharge and patient may continue clear liquid diet at home. Plan to continue monitoring. She has been afebrile, heart rate in the 70s and 80s, blood pressure 117/72, pulse ox is 100% on room air. White count is 5.3, hemoglobin 9.7, platelet count 184, creatinine 0.55. Blood sugars run between 120 and 138. 04/14: Patient states she is still having diarrhea but is less frequent. She is going every couple hours between episodes. She is currently on a low residue diet and also on TPN. Imodium has been increased alternating with Lomotil. She is having some abdominal pain but mostly controlled. Bentyl is a 20 mg 3 times daily. White count is 4.9, hemoglobin 9.6, platelet count 178. Sodium 136, potassium 4.9, chloride 108, CO2 25. BUN 13 creatinine 0.56. Capillary blood glucose running between 93 and 106. Patient has been afebrile, blood pressure 97/58, heart rate 60s to 80s. Pulse ox is 99% on room air. 04/15: She remains afebrile, blood pressure 93/60, pulse ox 100% on room air, heart rate running in the 60s and 70s. Sodium 138, potassium 4.5, chloride 109 , CO2 27, creatinine 0.57. Blood sugars run between 101-123. Patient states that she has not had a bowel movement since 645 last evening. She states she is not eating very much at this point she remains on TPN. Plan to advance diet and most likely discharge home tomorrow. 04/16: The patient continues to tolerate low fiber diet. She has had no episodes of diarrhea overnight. She is had good urine output. She has been on TPN which will be discontinued. She has been afebrile, heart rate in the 70s and 80s, blood pressure 100/52, pulse ox 98% on room air. Repeat BUN 20 creatinine 0.53. Electrolytes within normal limits. Magnesium 1.8. Patient has been cleared for discharge by Dr. Garcia. Patient will be discharged home today in stable condition. Discharge diagnoses: 1. Acute kidney injury and dehydration secondary to nausea, vomiting and diarrhea. 2. History of colon cancer status post right colectomy and chemotherapy. 3. History of breast cancer status post lumpectomy and radiation. 4. Nausea, vomiting, diarrhea secondary to colitis from Xeloda. 5. Hypertension. 6. Acute urinary tract infection 7. Hyponatremia secondary to dehydration. 8. Hypokalemia secondary to diarrhea. 9. Hypercalcemia secondary to metabolic acidosis. 10. Hypophosphatemia secondary to decreased oral intake. 11. Severe protein calorie malnutrition requiring TPN. Discharge plan: Return home Impression and plan of care have been directed as dictated by the signing physician. Opal Moreno nurse practitioner acting as scribe for signing physician. Patient Condition at Discharge: Good Plan - Discharge Summary Discharge Rx Participant: No New Discharge Prescriptions: New Diphenoxylate HCl/Atropine [Lomotil 2.5-0.025 mg Tablet] 2 tab PO QID PRN 3 Days #24 tab PRN Reason: Diarrhea Loperamide [Imodium] 4 mg PO QID PRN #112 capsule PRN Reason: Diarrhea Dicyclomine [Bentyl] 20 mg PO TID #90 tablet Nystatin 100,000 Unit/ml Susp [Mycostatin Oral Susp] 3,000,000 unit PO TID # 15 cup Continue Cyanocobalamin [Vitamin B-12] 500 mcg PO DAILY Cholecalciferol (Vitamin D3) [Vitamin D3] 2,000 unit PO DAILY Multivitamins, Thera [Multivitamin (formulary)] 1 tab PO DAILY Aspirin [Adult Low Dose Aspirin EC] 81 mg PO DAILY Lisinopril [Zestril] 10 mg PO DAILY Tamoxifen Citrate 20 mg PO DAILY Biotin 5 mg PO DAILY Prochlorperazine [Compazine] 10 mg PO Q6H PRN PRN Reason: Nausea Loperamide [Imodium] 2 mg PO QID PRN PRN Reason: Loose Stool Ferrous Sulfate [Iron (65 MG Elemental)] 325 mg PO DAILY Discontinued Capecitabine [Xeloda] 750 mg PO BID Doxycycline Hyclate [Vibramycin] 100 mg PO BID Discharge Medication List Aspirin [Adult Low Dose Aspirin EC] 81 mg PO DAILY 07/10/17 [History] Cholecalciferol (Vitamin D3) [Vitamin D3] 2,000 unit PO DAILY 07/10/17 [History] Cyanocobalamin [Vitamin B-12] 500 mcg PO DAILY 07/10/17 [History] Lisinopril [Zestril] 10 mg PO DAILY 07/10/17 [History] Multivitamins, Thera [Multivitamin (formulary)] 1 tab PO DAILY 07/10/17 [History ] Tamoxifen Citrate 20 mg PO DAILY 12/16/17 [History] Biotin 5 mg PO DAILY 04/05/18 [History] Ferrous Sulfate [Iron (65 MG Elemental)] 325 mg PO DAILY 04/05/18 [History] Loperamide [Imodium] 2 mg PO QID PRN 04/05/18 [History] Prochlorperazine [Compazine] 10 mg PO Q6H PRN 04/05/18 [History] Dicyclomine [Bentyl] 20 mg PO TID #90 tablet 04/16/18 [Rx] Diphenoxylate HCl/Atropine [Lomotil 2.5-0.025 mg Tablet] 2 tab PO QID PRN 3 Days #24 tab 04/16/18 [Rx] Loperamide [Imodium] 4 mg PO QID PRN #112 capsule 04/16/18 [Rx] Nystatin 100,000 Unit/ml Susp [Mycostatin Oral Susp] 3,000,000 unit PO TID #15 cup 04/16/18 [Rx] Follow up Appointment(s)/Referral(s): Josefa Asif MD [Primary Care Provider] - 04/19/18 3:15 pm (With [facility]) Mia Colmenares ANPBC [Nurse Practitioner] - 04/27/18 10:30 am (With Sabrina at [facility]) Rama Rosas MD [STAFF PHYSICIAN] - 05/17/18 12:45 pm Activity/Diet/Wound Care/Special Instructions: Antidiarrheal dosin. Lomotil 2.5 mg 1 tablet every 4 hours as needed for diarrhea. Patient may titrate dosing according to bowel movements daily. Goal for bowel movements is to have less than 5 bowel movements daily. If patient developed excessive diarrhea in between Lomotil dosing she may take 4 mg tablet of Imodium and alternate the Lomotil and Imodium on an alternating schedule every 4-6 hour as needed not to exceed 16 mg of Imodium 24 hours and 20 mg of Lomotil 24 hours. Patient verbalized understanding of titrating her antidiarrheals according to her daily bowel was. She was advised to notify her practitioner and/or return to the emergency room if fever, rectal bleeding, or increased abdominal pain distention occurs and to immediately discontinue her antidiarrheals. Regular diet as tolerated. Discharge Disposition: HOME SELF-CARE
== END 2018-04-16 14:44 | disposition home or self-care (01) | DRG 682 ==
LOC: EC 11:05 → 3NMEDONC 17:02
PROVIDERS: ADMIT Family Medicine; ATTEND Family Medicine
PROC: 02HV33Z Insertion of Infusion Device into Superior Vena Cava, Percutaneous Approach (ICD-10-PCS; principal; 2018-04-08 10:20)
DX: N17.9 Acute kidney failure, unspecified (principal); E43 Unspecified severe protein-calorie malnutrition; B37.49 Other urogenital candidiasis; C18.9 Malignant neoplasm of colon, unspecified; E87.1 Hypo-osmolality and hyponatremia; E87.2 Acidosis; K52.1 Toxic gastroenteritis and colitis; C50.919 Malignant neoplasm of unspecified site of unspecified female breast; D64.81 Anemia due to antineoplastic chemotherapy; Z68.20 Body mass index [BMI] 20.0-20.9, adult; E83.39 Other disorders of phosphorus metabolism; E83.42 Hypomagnesemia; E83.52 Hypercalcemia; E86.0 Dehydration; E86.1 Hypovolemia; E87.6 Hypokalemia; Z87.891 Personal history of nicotine dependence; I10 Essential (primary) hypertension; K12.30 Oral mucositis (ulcerative), unspecified; K21.9 Gastro-esophageal reflux disease without esophagitis; T45.1X5A Adverse effect of antineoplastic and immunosuppressive drugs, initial encounter; Z17.0 Estrogen receptor positive status [ER+]; Z79.810 Long term (current) use of selective estrogen receptor modulators (SERMs); Z79.82 Long term (current) use of aspirin; Z79.899 Other long term (current) drug therapy; Z82.5 Family history of asthma and other chronic lower respiratory diseases; Z90.49 Acquired absence of other specified parts of digestive tract; Z92.3 Personal history of irradiation; L27.1 Localized skin eruption due to drugs and medicaments taken internally; Z82.49 Family history of ischemic heart disease and other diseases of the circulatory system; Z82.0 Family history of epilepsy and other diseases of the nervous system; Z60.2 Problems related to living alone
CPT/HCPCS: 36415; 36573; 74018; 80048; 80053; 81001; 82272; 82330; 82607; 82728; 82746; 83540; 83550; 83630; 83735; 84100; 84132; 84478; 85025; 87045; 87046; 87086; 87324; 87338; 96360; 96361; 99285

== ENCOUNTER → 2018-04-27 | Outpatient (CLI) | payer BC ==
--- NOTE | 2018-04-27 13:57 | US ---
EXAMINATION TYPE: US transvaginal DATE OF EXAM: 04/27/2018 COMPARISON: NONE CLINICAL HISTORY: R19.00 Pelvic swelling with mass. Pelvic swelling TECHNIQUE: Transvaginal (TV). Date of LMP: unknown EXAM MEASUREMENTS: Uterus: 8.4 x 3.6 x 3.9 cm Endometrial Stripe: 1.3 cm Right Ovary: unable to visualize Left Ovary: unable to visualize 1. Uterus: Anteverted Nabothian cysts noted. Heterogeneous myometrium 2. Endometrium: heterogeneous 3. Right Ovary: Obscured by overlying bowel gas 4. Left Ovary: Obscured by overlying bowel gas 5. Bilateral Adnexa: appears wnl 6. Posterior cul-de-sac: wnl IMPRESSION: 1. Nonspecific heterogeneity of the uterine myometrium. 2. Cervical nabothian cysts.
== END | disposition home or self-care (01) ==
LOC: RADUSWWP 12:40
PROVIDERS: ATTEND Family Medicine
DX: N88.8 Other specified noninflammatory disorders of cervix uteri (principal)
CPT/HCPCS: 76830

== ENCOUNTER → 2018-09-16 | Outpatient (CLI) | payer BC ==
--- NOTE | 2018-09-16 12:18 | MM ---
Reason for exam: follow-up at short interval from prior study. Last mammogram was performed 6 months ago. History: Patient is postmenopausal, has history of breast cancer at age 62, has history of high-risk lesion on a previous biopsy at age 62, and has history of colon cancer at age 62. Family history of breast cancer in paternal grandmother at age 50. Malignant MG pre op needle loc LT of the left breast, August 12, 2017. High risk MG stereo VAD BX addl LT of the left breast, July 16, 2017. High risk MG stereo VAD BX RT of the right breast, July 16, 2017. Taking antineoplastic beginning at age 62. Physical Findings: Nurse did not find any significant physical abnormalities on exam. MG 3D Diag Mammo W/Cad JERAMIE Bilateral CC and MLO view(s) were taken. Prior study comparison: March 08, 2018, bilateral MG diagnostic mammo w CAD JERAMIE. June 26, 2017, bilateral MG work up mamm w CAD BILAT. The breast tissue is heterogeneously dense. This may lower the sensitivity of mammography. Post biopsy change on the right. Post therapy change. Rounded mass at lumpectomy site is likely either fat necrosis or a seroma, ultrasound will be done. These results were verbally communicated with the patient and result sheet given to the patient on 09/16/18. ASSESSMENT: Incomplete: need additional imaging evaluation, BI-RAD 0 RECOMMENDATION: Ultrasound of the left breast.
--- NOTE | 2018-09-16 12:20 | USB ---
Reason for exam: additional evaluation requested from abnormal screening. History: Patient is postmenopausal, has history of breast cancer at age 62, has history of high-risk lesion on a previous biopsy at age 62, and has history of colon cancer at age 62. Family history of breast cancer in paternal grandmother at age 50. Malignant MG pre op needle loc LT of the left breast, August 12, 2017. High risk MG stereo VAD BX addl LT of the left breast, July 16, 2017. High risk MG stereo VAD BX RT of the right breast, July 16, 2017. Taking antineoplastic beginning at age 62. US Breast Limited LT Left limited breast ultrasound including focal area of concern, retroareolar and axilla demonstrates a 1.7 x 0.6 x 2.1cm mixed lesion at 9 o'clock, a vascular retracted clot within a post operative seroma. These results were verbally communicated with the patient and result sheet given to the patient on 09/16/18. ASSESSMENT: Benign, BI-RAD 2 RECOMMENDATION: Follow-up diagnostic mammogram of both breasts in 1 year.
== END | disposition home or self-care (01) ==
LOC: RADMAMWWP 09:26
PROVIDERS: ATTEND Radiology Radiation Oncology
DX: D05.12 Intraductal carcinoma in situ of left breast (principal); C18.9 Malignant neoplasm of colon, unspecified; R92.8 Other abnormal and inconclusive findings on diagnostic imaging of breast; Z92.3 Personal history of irradiation; Z17.0 Estrogen receptor positive status [ER+]
CPT/HCPCS: 77062; 77066

== ENCOUNTER → 2018-10-01 | Outpatient (CLI) | payer BC ==
--- NOTE | 2018-10-01 12:01 | CT ---
EXAMINATION TYPE: CT ChestAbdPelvis w con DATE OF EXAM: 10/01/2018 COMPARISON: 12/22/2017 and ultrasound dated 09/16/2018 HISTORY: Colon cancer, Breast Cancer CT DLP: 746.00 mGycm Automated exposure control for dose reduction was used. CONTRAST: CT scan of the chest, abdomen and pelvis is performed with Oral Contrast and without and with IV Cont rast, patient injected with 100 ml mL of Isovue 300. FINDINGS: LUNGS: Mild emphysema. The lungs are grossly clear, there is no concerning parenchymal mass or nodule identified. There is no pleural effusion or pneumothorax seen. The tracheobronchial tree is paten t. MEDIASTINUM: There are no greater than 1 cm hilar or mediastinal lymph nodes. No pericardial effusi on is seen. OTHER: Small fluid collection the medial left breast measuring up to 2.2 cm on axial image 33. No axi llary lymphadenopathy. LIVER/GB: No significant abnormality is appreciated. PANCREAS: No significant abnormality is seen. SPLEEN: No significant abnormality is seen. ADRENALS: No significant abnormality is seen. KIDNEYS: No significant abnormality is seen. BOWEL: No significant abnormality is seen. REPRODUCTIVE ORGANS: No gross abnormality seen. LYMPH NODES: No greater than 1 cm abdominal or pelvic lymph nodes are appreciated. OSSEOUS STRUCTURES: No significant abnormality is seen. IMPRESSION: Medial left breast fluid collection measuring up to 2.2 cm. Findings are seen on ultrasound the prost ate 09/16/2018. Please refer to that report for further evaluation. Otherwise, no evidence of metastatic disease within the chest, abdomen or pelvis.
== END | disposition home or self-care (01) ==
LOC: RADCTMAIN 08:52
PROVIDERS: ATTEND Internal Medicine Hematology & Oncology
DX: N64.89 Other specified disorders of breast (principal); D05.12 Intraductal carcinoma in situ of left breast
CPT/HCPCS: 71260; 74177; Q9967

== ENCOUNTER → 2018-11-05 | Outpatient (CLI) | payer BC | END | disposition home or self-care (01) | LOC: LABPAT 14:53 | PROVIDERS: ATTEND Obstetrics & Gynecology | DX: Z01.818 Encounter for other preprocedural examination (principal) | CPT/HCPCS: 93005 ==

== ENCOUNTER 2018-11-22 05:56 | Day surgery (SDC) | payer BC ==
[2018-11-17 12:07] VITALS: BMI 24.2
--- NOTE | 2018-11-19 08:10 | P.HPOB ---
History of Present Illness H&P Date: 11/19/18 Chief Complaint: Endometrial thickening on Tamoxifen This patient is a pleasant 63 yr female who was referred to me by Dr. Gaviria for evaluation of abnormal endometrial thickening on pelvic ultrasound while on Tamoxifen for breast cancer. Her history is such that she was diagnosed with breast cancer in July of 2017 and had a left breast lumpectomy. Postoperatively placed on Tamoxifen. She also was found to have colon cancer in February 2018 and had a colectomy. Her PCP ordered an ultrasound in April for uterine enlargement and the endometrium was found to be abnormally thickened to 1.3cm. She now presents for further evaluation. Review of Systems Constitutional: Denies chills, Denies fever Past Medical History Past Medical History: Cancer, GERD/Reflux, Hypertension Additional Past Medical History / Comment(s): Hx LEFT BREAST CANCER, treated with radiation and lumpectomy. Last radiation July 2017. Hx colon cancer treated with chemo and Colectomy, last chemo August 2018. History of Any Multi-Drug Resistant Organisms: None Reported Past Surgical History: Breast Surgery Additional Past Surgical History / Comment(s): LEFT BREAST LUMPECTOMY, colectomy. Past Anesthesia/Blood Transfusion Reactions: Motion Sickness Past Psychological History: No Psychological Hx Reported Smoking Status: Former smoker Past Alcohol Use History: Occasional Additional Past Alcohol Use History / Comment(s): Quit smoking in December 2017. Past Drug Use History: None Reported - Past Family History Mother Family Medical History: No Reported History, COPD, Dementia Additional Family Medical History / Comment(s): Mother is in her 80s with history of COPD and dementia. Father Family Medical History: AFIB, Cancer Additional Family Medical History / Comment(s): Lung cancer. Sister(s) Family Medical History: No Reported History Additional Family Medical History / Comment(s): Patient has 1 sister with no major medical problems. Patient does not have any brothers. Patient has 2 daughters with no major medical problems. Medications and Allergies Home Medications Medication Instructions Recorded Confirmed Type Aspirin [Adult Low Dose Aspirin EC] 81 mg PO DAILY 07/10/17 11/17/18 History Cholecalciferol (Vitamin D3) 2,000 unit PO DAILY 07/10/17 11/17/18 History [Vitamin D3] Cyanocobalamin [Vitamin B-12] 500 mcg PO DAILY 07/10/17 11/17/18 History Lisinopril [Zestril] 10 mg PO QAM 07/10/17 11/17/18 History Multivitamins, Thera [Multivitamin 1 tab PO DAILY 07/10/17 11/17/18 History (formulary)] Tamoxifen Citrate 20 mg PO DAILY 12/16/17 11/17/18 History Biotin 5 mg PO DAILY 04/05/18 11/17/18 History Ferrous Sulfate [Iron (65 MG 325 mg PO DAILY 04/05/18 11/17/18 History Elemental)] Allergies Allergy/AdvReac Type Severity Reaction Status Date / Time No Known Allergies Allergy Verified 11/17/18 12:09 Results Transvaginal ultrasound on April 27 showed endometrial thickening to 1.3 cm. Assessment and Plan Assessment: This patient is a 63 yr with abnormal endometrial thickening on Tamoxifen. I discussed that most of the time this abnormality is benign, however unfortunately there is a significant increase risk of endometrial carcinoma with this medication. Plan is hysteroscopy and D&C for further evaluation. I discussed the risks of this surgery: infection, bleeding, and possible uterine perforation. All of the patients questions were answered and a written consent obtained. (1) Endometrial thickening on ultrasound Status: Acute Code(s): R93.89 - ABNORMAL FINDINGS ON DX IMAGING OF OTH BODY STRUCTURES SNOMED Code(s): 371148899 (2) Use of tamoxifen (Nolvadex) Status: Acute Code(s): Z79.810 - LNG TRM (CRNT) USE OF SLCTV ESTROG RECEPTOR MODULATORS SNOMED Code(s): 473024260
[~2018-11-22 05:56] MED LIST changes: +DEXAMETHASONE SOD PHOSPHATE 10 MG/ML 1 ML VIAL IV ONE; -HEPARIN SODIUM,PORCINE 5,000 UNIT/ML 1 ML VIAL SQ ONE; +LACTATED RINGERS 1,000 ML IV SCH; +LIDOCAINE 1% 20 ML VIAL (10MG/ML) FOR IV START INTRADERMA PRN; +MIDAZOLAM 2 MG/2 ML VIAL IV PRN; +fentaNYL (PF) 50 MCG/ML 2 ML AMP IV PRN
[2018-11-22] MEDS ORDERED: fentaNYL (PF) 50 MCG/ML 2 ML AMP ONE (06:51)
[2018-11-22] MEDS ORDERED: LIDOCAINE 1% INJ 10MG/ML (20 ML MDV) ONE (06:51)
[2018-11-22] MEDS ORDERED: PROPOFOL 10 MG/ML 20 ML VIAL IV ONE (06:51)
[2018-11-22] MEDS ORDERED: KETOROLAC 30 MG/ML 1 ML VIAL ONE (06:51)
[2018-11-22] MEDS ORDERED: MIDAZOLAM 2 MG/2 ML VIAL ONE (06:51)
[2018-11-22 07:32] VITALS: TEMP 98.3
--- NOTE | 2018-11-22 07:40 | P.OP ---
Date of Procedure: 11/22/18 Preoperative Diagnosis: Endometrial thickening on tamoxifen Postoperative Diagnosis: Same, benign appearing endometrial growths Procedure(s) Performed: Hysteroscopy and dilation and curettage. Anesthesia: MAC Surgeon: Jovon Valladares Estimated Blood Loss (ml): 15 IV fluids (ml): 300 Urine output (ml): 50 Pathology: other (Uterine curettings) Condition: stable Disposition: PACU Indications for Procedure: Please see dictated H&P for intimate details of this patient's admission. Brief summary this pleasant 63-year-old 2 para 2 female who was referred to [facility] for abnormal endometrial thickening on pelvic ultrasound that was found during surveillance of tamoxifen therapy. Patient understands this surgery and risks including risks of infection, bleeding, possible uterine perforation. All the patient's questions are answered written consent is obtained. Operative Findings: This patient had 2 benign appearing endometrial growths most likely polyps or submucosal fibroids. There was no concerning endometrial lesions Description of Procedure: This patient is taken to the operating room where she is laid in supine position. She subsequently undergoes general mask anesthesia without incident. With an adequate level of anesthesia she is placed in dorsal lithotomy position. She has a vaginal perineal prep and drape. Examination under anesthesia shows a mid position uterus of normal size. I first drain the bladder for approximately 50 mL of clear urine. Weighted speculum was placed in the posterior vagina. The anterior lip of cervix is gravid and Allis clamp. I gently dilate the cervix with a hemostat. Uterus is then sounded to 9 cm. With this done I gently dilate the cervix to allow the hysteroscope into the uterine cavity. Using saline solution hysteroscopy is performed uterine cavity is completely visualized. There are 2 benign-appearing growths in the uterine cavity. One is approximately 1 cm the other is about a half a centimeter. T hese appear to be polyps or old submucosal fibroids. They do have a broad bases. With this done the hysteroscope was removed. Dilate the cervix more to allow a polyp forceps and the uterine cavity and multiple attempts were made at removing these growths however the 's obvious that they are adherent to the uterine wall. I do remove several small pieces of the growths. Once again these do appear benign. At this point I take a large curette and vigorously curettaged all 4 quadrants. Adequate sampling is done. This point the procedure is ended. The Allis clamp and weighted speculum removed. All counts are correct 3. There are no complications. Is awakened from anesthesia and taken recovery room satisfactory condition.
[2018-11-22 08:41] VITALS: BP 145/78; PULSE 67; RESP 18
== END 2018-11-22 08:44 | disposition home or self-care (01) ==
LOC: OR 05:56
PROVIDERS: ATTEND Obstetrics & Gynecology
DX: R93.89 Abnormal findings on diagnostic imaging of other specified body structures (principal); Z79.810 Long term (current) use of selective estrogen receptor modulators (SERMs); Z85.3 Personal history of malignant neoplasm of breast; Z85.038 Personal history of other malignant neoplasm of large intestine; Z92.21 Personal history of antineoplastic chemotherapy; Z87.891 Personal history of nicotine dependence; Z83.6 Family history of other diseases of the respiratory system; Z82.0 Family history of epilepsy and other diseases of the nervous system; Z80.1 Family history of malignant neoplasm of trachea, bronchus and lung; Z82.49 Family history of ischemic heart disease and other diseases of the circulatory system; Z79.82 Long term (current) use of aspirin; Z79.899 Other long term (current) drug therapy; K21.9 Gastro-esophageal reflux disease without esophagitis
CPT/HCPCS: 88305; 58558; J2250; J1100; J2001; J3010; J1885; J2704

== ENCOUNTER 2018-12-29 08:36 | Day surgery (SDC) | payer BC ==
[2018-12-27 16:45] VITALS: BMI 25.0
[~2018-12-29 08:36] MED LIST changes: -DEXAMETHASONE SOD PHOSPHATE 10 MG/ML 1 ML VIAL IV ONE; -MIDAZOLAM 2 MG/2 ML VIAL IV PRN; -Pre Op ABX Message 1 EACH MISC MISCELLANE ONE; -fentaNYL (PF) 50 MCG/ML 2 ML AMP IV PRN
[2018-12-29 09:17] VITALS: RESP 16; TEMP 98.4
[2018-12-29] MEDS ORDERED: PROPOFOL 10 MG/ML 20 ML VIAL IV ONE (09:56)
--- NOTE | 2018-12-29 10:14 | P.PCN ---
Date of Procedure: 12/29/18 Procedure(s) Performed: BRIEF HISTORY: Patient is a 63-year-old [place] [employer] female scheduled for an elective colonoscopy as a part of evaluation of prior history of colon cancer diagnosed in December 2017 for which she underwent right hemicolectomy followed by chemotherapy. She is scheduled for surveillance colonoscopy today. PROCEDURE PERFORMED: Colonoscopy snare polypectomy . PREOPERATIVE DIAGNOSIS: History of colon cancer diagnosed in December 2017 status post right hemicolectomy IV sedation per Anesthesia. PROCEDURE: After informed consent was obtained, the patient, was brought into the endoscopy unit. IV sedation was administered by Anesthesia under continuous monitoring. Digital rectal examination was normal. Initially the Olympus CF-160 flexible video colonoscope was then inserted in the rectum, gradually advanced into the right colon with ileocolic anastomosis was visualized and appeared normal. In the proximal transverse colon there was a 7-8 mm broad-based polyp that was removed by snare polypectomy. Rest of the transverse colon, descending colon, sigmoid colon, and rectum appeared normal. the proximal rectum there was a 5 limited polyp removed by snare polypectomy,. Retroflexion was performed in the rectum and no lesions were seen. The patient tolerated the procedure well. IMPRESSION: 7 mm proximal transverse colon polyp status post polypectomy 5 mm proximal rectal polyp status post polypectomy RECOMMENDATIONS: Findings of this examination were discussed with the patient as well as a family. She was advised to follow with the biopsy results. She can have a repeat surveillance coloscopy in 2 years
[2018-12-29 10:37] VITALS: BP 122/79; PULSE 64
== END 2018-12-29 10:53 | disposition home or self-care (01) ==
LOC: ORWHC2ENDO 08:36
PROVIDERS: ATTEND Internal Medicine Gastroenterology
DX: Z12.11 Encounter for screening for malignant neoplasm of colon (principal); D12.3 Benign neoplasm of transverse colon; K62.1 Rectal polyp; C50.919 Malignant neoplasm of unspecified site of unspecified female breast; I10 Essential (primary) hypertension; K21.9 Gastro-esophageal reflux disease without esophagitis; Z85.038 Personal history of other malignant neoplasm of large intestine; Z92.21 Personal history of antineoplastic chemotherapy; Z87.891 Personal history of nicotine dependence; Z90.49 Acquired absence of other specified parts of digestive tract; Z79.82 Long term (current) use of aspirin; Z79.899 Other long term (current) drug therapy; Z79.810 Long term (current) use of selective estrogen receptor modulators (SERMs)
CPT/HCPCS: 88305; 45385; J2704

== ENCOUNTER → 2018-12-31 | Outpatient (CLI) | payer BC ==
--- NOTE | 2018-12-31 15:31 | CT ---
EXAMINATION TYPE: CT ChestAbdPelvis w con DATE OF EXAM: 12/31/2018 COMPARISON: HISTORY: Follow up colon/breast CA CT DLP: 649 mGycm CONTRAST: CT scan of the chest, abdomen and pelvis is performed with Oral Contrast and with IV Contrast, patien t injected with 100 mL of Isovue 300. CT Chest: LUNGS: The lungs are clear and free of infiltrate or atelectasis. 3 mm nodular density right lower lo be image 39 is unchanged. No concerning pulmonary nodules are evident. Mild upper lobe emphysematous change appreciated. No pleural effusion or CT evidence of interstitial lung disease. MEDIASTINUM: Thoracic aorta is of normal caliber. The heart is not enlarged. No evidence for media stinal mass or adenopathy. HILAR STRUCTURES: No evidence for mass. No hilar adenopathy is appreciated. OTHER: No significant abnormality. CONTRAST CT ABDOMEN AND PELVIS FINDINGS: LIVER/GB: Stable cholelithiasis noted. No space occupying hepatic lesion. Biliary tree is of normal c aliber. PANCREAS: No inflammation. No distinct mass. SPLEEN: No splenic enlargement. No lesion seen. ADRENALS: No nodule. No thickening. KIDNEYS/BLADDER: No hydronephrosis. No nephrolithiasis. No disctinct renal mass. BOWEL: Initial right hemicolectomy changes noted. Moderate fecal stasis. Normal bowel caliber. No in flammation. GENITAL ORGANS: No gross abnormality. LYMPH NODES: No greater than 1cm abdominal or pelvic lymph nodes are appreciated. AORTA: No significant abnormality. OSSEOUS STRUCTURES: No significant abnormality is seen. OTHER: Large left buttock sebaceous cyst is again noted. IMPRESSION: 1. No evidence for metastatic disease or recurrent disease at this time.
== END | disposition home or self-care (01) ==
LOC: RADCTMAIN 07:59
PROVIDERS: ATTEND Internal Medicine Hematology & Oncology
DX: C18.2 Malignant neoplasm of ascending colon (principal); D05.12 Intraductal carcinoma in situ of left breast
CPT/HCPCS: 71260; 74177; Q9967

== ENCOUNTER → 2019-01-04 | Outpatient (CLI) | payer BC ==
[2019-01-04 09:15] LABS: Basophils % (A) 1 %; Eosinophils # (A) 0.1 k/uL (0-0.7); Eosinophils % (A) 3 %; HCT 35.8 % (34.0-46.0); Lymphocytes # (A) 1.6 k/uL (1.0-4.8); Lymphocytes % (A) 38 %; MCH 32.5 pg (25.0-35.0); MCHC 33.4 g/dL (31.0-37.0); MCV 97.2 fL (80.0-100.0); Mean Platelet Volume 6.5; Monocytes # (A) 0.2 k/uL (0-1.0); Monocytes % (A) 4 %; Neutrophils # (A) 2.2 k/uL (1.3-7.7); Neutrophils % (A) 53 %; Platelet Count 198 k/uL (150-450); RBC 3.69 m/uL (3.80-5.40); RDW 11.9 % (11.5-15.5); WBC 4.2 k/uL (3.8-10.6)
[2019-01-04 16:01] LABS: African American GFR (CKD) 90.9 (60.0-200.0); Albumin 3.8 g/dL (3.80-4.90); Albumin/Globulin Ratio 1.73 (1.60-3.17); Anion Gap 7.1 mmol/L (4.00-12.00); BUN/Creat Ratio 22.5 Ratio (12.00-20.00); Carbon Dioxide 27.9 mmol/L (21.6-31.8); Chol/HDL Ratio 1.98; Globulin 2.2 g/dL (1.6-3.3); LDL Cholesterol,Calculated 73.6 mg/dL (0.0-131.0); Potassium 4.5 mmol/L (3.5-5.5); Total Bilirubin 0.4 mg/dL (0.3-1.2); VLDL Calculation 11.4 mg/dL (5.00-40.00)
== END | disposition home or self-care (01) ==
LOC: LABWHC1 08:04
PROVIDERS: ATTEND Nurse Practitioner Family
DX: N17.9 Acute kidney failure, unspecified (principal); E78.2 Mixed hyperlipidemia
CPT/HCPCS: 36415; 80053; 80061; 84439; 84443; 85025

== ENCOUNTER → 2019-04-15 | Outpatient (CLI) | payer BC ==
[2019-04-15 13:07] LABS: African American GFR (CKD) >90 (>60 ml/min/1.73 sqM); Blood Urea Nitrogen 23 mg/dL (7-17); Non-African American GFR(CKD) 82 (>60 ml/min/1.73 sqM)
--- NOTE | 2019-04-15 17:24 | CT ---
EXAMINATION TYPE: CT ChestAbdPelvis w con DATE OF EXAM: 04/15/2019 COMPARISON: 12/31/2018 and 10/01/2018 HISTORY: 63-year-old female follow up colon cancer. Patient also with history of left breast DCIS. TECHNIQUE: Contiguous axial scanning of the chest, abdomen, and pelvis performed with IV Contrast, pa tient injected with 100 mL of Isovue 300. Delayed images through the kidneys were obtained. Coronal/s agittal reconstructions performed. CT DLP: 818 mGycm Automated exposure control for dose reduction was used. FINDINGS: CHEST: Heart normal size without pericardial effusion. Aorta normal caliber with conventional arch was a branching anatomy. No thoracic lymphadenopathy by CT size criteria. Generalized skin and trabecular thickening throughout the left breast with lumpectomy scar medial asp ect of the left breast redemonstrated. 5 mm posterior right lower lobe pulmonary nodule is now more defined previously measuring 3 mm. Refer to axial image 43. 1.0 cm anterior basilar left lower lobe pulmonary nodule, axial image 40 previously measured 8 mm. Reticular changes within the subpleural region of the anterior left midlung compatible with post radi ation therapy change. Mild to moderate upper lung centrilobular emphysema. No consolidation or pleural effusion. ABDOMEN: No focal liver lesion or biliary ductal dilatation. Portal venous system is patent. Multiple gallstones are present measuring up to 1 cm. No abnormal gallbladder distention. Adrenal glands, right kidney, spleen, and pancreas appear within normal limits. Stable 8 mm cortical cyst medial left kidney. No dilated small bowel, free fluid, or free air. No mesenteric or retroperitoneal lymphadenopathy patricia ntified. Patient is status post partial right hemicolectomy with ileocolonic anastomosis at the upper ascendin g colon. Scattered [id number] stool. Sigmoid diverticulosis. No pericolonic inflammatory change . PELVIS: Bladder urine distended. Uterus anteverted. Both ovaries are visualized. Multiple pelvic phleboliths. No abnormal fluid collection in the pelvis or pelvic lymphadenopathy. BONES: A 2.8 x 1.3 cm cyst just deep to the skin surface left lower back versus 4.4 x 2.9 cm, previously. Mi ld degenerative disc disease lower thoracic spine. No osseous destructive process. IMPRESSION: 1. Previous medial left breast lumpectomy and radiation therapy change. Additional previous partial r ight hemicolectomy with ileocolonic anastomosis. 2. A 1 cm left lower lobe pulmonary nodule and a 5 mm right lower lobe pulmonary nodule are minimally larger from prior exams (previously measuring 8 mm and 3 mm, respectively, previously). Continued fo llow-up recommended. 3. Incidental: COPD with mild emphysema, cholelithiasis, sigmoid diverticulosis, and a probable 2.8 c m sebaceous cyst posterior lower left back (previously measuring 4.4 cm).
== END | disposition home or self-care (01) ==
LOC: RADCTMAIN 12:26
PROVIDERS: ATTEND Internal Medicine Hematology & Oncology
DX: R91.1 Solitary pulmonary nodule (principal); C18.2 Malignant neoplasm of ascending colon; D05.12 Intraductal carcinoma in situ of left breast; K63.89 Other specified diseases of intestine; Z90.12 Acquired absence of left breast and nipple; Z90.49 Acquired absence of other specified parts of digestive tract
CPT/HCPCS: 82565; 84520; 71260; 74177; 36415; Q9967

== ENCOUNTER → 2019-08-05 | Outpatient (CLI) | payer BC ==
--- NOTE | 2019-08-05 13:09 | CT ---
EXAMINATION TYPE: CT ChestAbdPelvis w con DATE OF EXAM: 08/05/2019 COMPARISON: April 15, 2019 HISTORY: Follow up scan for colon cancer. CT DLP: 883.7 mGycm CONTRAST: CT scan of the chest, abdomen and pelvis is performed with Oral Contrast and with IV Contrast, patien t injected with 100 mL of Isovue 300. CT Chest: LUNGS: The lungs are clear and free of infiltrate or atelectasis. 5 mm right lower lobe pulmonary nod ule image 42 is stable. 1 cm pulmonary nodule in the region of the lingula is also unchanged image 40 . Mild subpleural fibrosis overlying the region of the left chest likely related to prior radiation t herapy change. No new nodules seen. No pleural effusion or CT evidence of interstitial lung disease. MEDIASTINUM: Thoracic aorta is of normal caliber. The heart is not enlarged. No evidence for media stinal mass or adenopathy. HILAR STRUCTURES: No evidence for mass. No hilar adenopathy is appreciated. OTHER: Lumpectomy changes left breast. CONTRAST CT ABDOMEN AND PELVIS FINDINGS: LIVER/GB: Cholesterol gallstones noted. No space occupying hepatic lesion. Biliary tree is of normal caliber. PANCREAS: No inflammation. No distinct mass. SPLEEN: No splenic enlargement. No lesion seen. ADRENALS: No nodule. There is thickening of the adrenal glands may reflect hyperplasia. KIDNEYS/BLADDER: No hydronephrosis. No nephrolithiasis. No disctinct renal mass. BOWEL: Partial right hemicolectomy with ileocolonic anastomosis unchanged from prior study. No eviden ce for recurrent or residual disease. Normal bowel caliber. No inflammation. GENITAL ORGANS: New solid left ovarian mass measures approximately 5.2 cm in maximal dimension. Ovari an neoplasm is not excluded and pelvic ultrasound is advised for further characterization. The right ovary is unremarkable as is the uterus. LYMPH NODES: No greater than 1cm abdominal or pelvic lymph nodes are appreciated. AORTA: No significant abnormality. OSSEOUS STRUCTURES: No significant abnormality is seen. OTHER: No significant additional abnormality is seen. IMPRESSION: 1. Solid mass within the left ovary requires further evaluation to exclude malignancy. 2. Stable pulmonary nodules require continued follow-up. 3. Stable changes of right-sided hemicolectomy and ileocolonic anastomosis. No hepatic lesions seen.
== END | disposition home or self-care (01) ==
LOC: RADCTMAIN 08:47
PROVIDERS: ATTEND Internal Medicine Hematology & Oncology
DX: N83.8 Other noninflammatory disorders of ovary, fallopian tube and broad ligament (principal); Z90.49 Acquired absence of other specified parts of digestive tract; R91.8 Other nonspecific abnormal finding of lung field; C18.2 Malignant neoplasm of ascending colon; D05.12 Intraductal carcinoma in situ of left breast
CPT/HCPCS: 71260; 74177; Q9967

== ENCOUNTER → 2019-08-15 | Outpatient (CLI) | payer BC ==
--- NOTE | 2019-08-15 12:09 | US ---
EXAMINATION TYPE: US transvaginal DATE OF EXAM: 08/15/2019 COMPARISON: CT 08/05/2019, and 04/15/2019 CLINICAL HISTORY: 64-year-old female D39.12 L ovary ca, C18.2 Colon CA,Z03.89 Obs mets. TECHNIQUE: Transvaginal sonographic images of the pelvis were acquired. Date of LMP: Age 47 FINDINGS: EXAM MEASUREMENTS: Uterus: 9.4 x 4.2 x 4.0 cm Endometrial Stripe: 1.3 cm Right Ovary: 2.4 x 1.2 x 1.3 cm Left Ovary: Not visualized with certainty 1. Uterus: Anteverted, myometrium displays heterogeneous echotexture 2. Endometrium: Thickened and complex 3. Right Ovary: wnl as visualized 4. Left Ovary: Vascular, echogenic area visualized within the left adnexa measuring 5.4 x 4.7 x 5.1. ? Left ovary with solid mass vs other 5. Bilateral Adnexa: See above 6. Posterior cul-de-sac: wnl IMPRESSION: 1. A 5.4 cm solid left adnexal mass probably of ovarian origin, new from the CT of 04/15/2019. Neoplas m should be excluded. 2. Heterogeneous thickened fundal endometrium measuring up to 1.3 cm. [employer] referral recommended for further assessment.
== END | disposition home or self-care (01) ==
LOC: RADUSWWP 10:52
PROVIDERS: ATTEND Internal Medicine Hematology & Oncology
DX: C18.2 Malignant neoplasm of ascending colon (principal); N83.9 Noninflammatory disorder of ovary, fallopian tube and broad ligament, unspecified
CPT/HCPCS: 76830

== ENCOUNTER → 2019-09-20 | Outpatient (CLI) | payer BC ==
--- NOTE | 2019-09-20 10:28 | MM ---
Reason for exam: additional evaluation requested from prior study. Last mammogram was performed 1 year ago. History: Patient is postmenopausal, has history of ovarian cancer at age 64, has history of breast cancer at age 62, has history of high-risk lesion on a previous biopsy at age 62, and has history of colon cancer at age 62. Family history of breast cancer in paternal aunt at age 50 and breast cancer in paternal grandmother at age 50. Malignant MG pre op needle loc LT of the left breast, August 12, 2017. High risk MG stereo VAD BX addl LT of the left breast, July 16, 2017. High risk MG stereo VAD BX RT of the right breast, July 16, 2017. Took hormonal contraceptives for 1 year. Taking antineoplastic for 2 years beginning at age 62. Physical Findings: Nurse did not find any significant physical abnormalities on exam. MG 3D Diag Mammo W/Cad JERAMIE Bilateral CC and MLO view(s) were taken. Prior study comparison: September 16, 2018, bilateral MG 3d diag mammo w/cad JERAMIE. March 08, 2018, bilateral MG diagnostic mammo w CAD JERAMIE. The breast tissue is heterogeneously dense. This may lower the sensitivity of mammography. There is no discrete abnormality. Stable post operative changes left breast. No significant new findings when compared with previous films. These results were verbally communicated with the patient and result sheet given to the patient on 09/20/19. ASSESSMENT: Benign, BI-RAD 2 RECOMMENDATION: Follow-up diagnostic mammogram of both breasts in 1 year.
== END | disposition home or self-care (01) ==
LOC: RADMAMWWP 09:25
PROVIDERS: ATTEND Radiology Radiation Oncology
DX: C18.9 Malignant neoplasm of colon, unspecified (principal); D05.12 Intraductal carcinoma in situ of left breast; Z17.0 Estrogen receptor positive status [ER+]; Z92.3 Personal history of irradiation; Z79.811 Long term (current) use of aromatase inhibitors
CPT/HCPCS: 77062; 77066

== ENCOUNTER → 2019-10-07 | Outpatient (CLI) | payer BC ==
--- NOTE | 2019-10-09 12:20 | PE ---
EXAMINATION TYPE: PET CT fusion skull to thigh DATE OF EXAM: 10/07/2019 COMPARISON: 08/05/2019 CT chest abdomen pelvis Prior PET/CT: None at this location HISTORY: Colon cancer, left breast cancer TECHNIQUE: Following the intravenous administration of 11.23 mCi of F-18 FDG, whole body images are performed from the skull base to the midthigh. Images are reviewed on the computer in the coronal, a xial, and sagittal planes. Reconstructed rotating images are created on independent workstation and reviewed on the computer. A localization and attenuation correction CT is performed in conjunction with the PET scan. DLP: 441.39 mGycm SCAN: Subsequent Blood glucose: 93 mg/dL Average Mediastinum SUV: 1.27 Average Liver SUV: 1.87 FINDINGS: NECK: No abnormal uptake THORAX: There is a 1.0 cm nodularity along the major fissure within the left lower lobe. Series 3 elham ge 109. SUV value however is not elevated measuring 0.75. A posterior right lower lobe nodule measuri ng 0.4 cm, series 3 image 109 does not have elevated SUV and measures 0.67. ABDOMEN: No abnormal uptake PELVIS: No abnormal uptake OSSEOUS STRUCTURES: No abnormal uptake LOCALIZATION CT: There is a port in the right chest. Postsurgical changes are in the ascending colon. No obstruction is evident. Fecal debris is within the colon. COMPARISON: Previous density in the posterior lateral left apex has nearly resolved. A very subtle pu nctate nodularity is present. Series 3 image 74. Some pleural nodularity within the anterior lateral lingula does not have abnormal uptake. Previous left ovarian masslike area has resolved. IMPRESSION: 1. No suspicious uptake to suggest metastatic disease. 2. Nodules within the chest do not have elevated uptake, monitoring is recommended. Some of these can be early and below the threshold of detectability. Repeat PET scan would be recommended for changing size of the nodules.
== END | disposition home or self-care (01) ==
LOC: RADPETMAIN 09:37
PROVIDERS: ATTEND Internal Medicine Hematology & Oncology
DX: R91.8 Other nonspecific abnormal finding of lung field (principal); C18.2 Malignant neoplasm of ascending colon
CPT/HCPCS: 78815; A9552

== ENCOUNTER 2020-01-20 13:13 | Inpatient (IN) | payer BC ==
[2020-01-20] MEDS ORDERED: MORPHINE SULFATE 4 MG/ML SYRINGE IV STA (14:16)
[2020-01-20] MEDS ORDERED: SODIUM CHLORIDE 0.9% 1,000 ML IV STA (14:16)
[2020-01-20] MEDS ORDERED: ONDANSETRON 4 MG/2 ML VIAL IVP STA (14:16)
[2020-01-20 14:52] LABS: Anisocytosis Slight; Basophils % (A) 0 %; Eosinophils # (A) 0.1 k/uL (0-0.7); Eosinophils % (A) 0 %; HCT 33.4 % (34.0-46.0); HGB 11.1 gm/dL (11.4-16.0); Lymphocytes # (A) 2.7 k/uL (1.0-4.8); Lymphocytes % (A) 16 %; MCH 33.1 pg (25.0-35.0); MCHC 33.3 g/dL (31.0-37.0); MCV 99.3 fL (80.0-100.0); Macrocytosis Slight; Mean Platelet Volume 9.7; Monocytes # (A) 0.9 k/uL (0-1.0); Monocytes % (A) 5 %; Neutrophils % (A) 77 %; Platelet Count 119 k/uL (150-450); RBC 3.36 m/uL (3.80-5.40); RDW 16.7 % (11.5-15.5); WBC 16.9 k/uL (3.8-10.6)
[2020-01-20 14:56] LABS: Appearance,Urine Cloudy (Clear); Bacteria,Urine Rare /hpf; Bilirubin,Urine Negative (Negative); Blood,Urine Small (Negative); Color,Urine Yellow; Glucose,Urine (UA) Negative (Negative); Hyaline Casts,Urine 19 /lpf (0-2); Ketones,Urine Negative (Negative); Leukocyte Esterase,Urine Large (Negative); Mucus,Urine Many /hpf; Nitrite,Urine Negative (Negative); PH, Urine 5.5 (5.0-8.0); Protein,Urine Trace (Negative); RBC,Urine 6 /hpf (0-5); Specific Gravity,Urine 1.013 (1.001-1.035); Squamous Epithelial Cell,Urine 3 /hpf (0-4); Urobilinogen,Urine <2.0 mg/dL (<2.0); WBC,Urine 34 /hpf (0-5)
[2020-01-20 15:07] LABS: Albumin 3.8 g/dL (3.5-5.0); Calcium 9.8 mg/dL (8.4-10.2); Potassium 3.6 mmol/L (3.5-5.1); Total Bilirubin 0.3 mg/dL (0.2-1.3)
--- NOTE | 2020-01-20 15:11 | ED ---
Abdominal Pain HPI - General Source: patient Mode of arrival: wheelchair Limitations: no limitations <Leatha Keyes - Last Filed: 01/20/20 18:23> <Jenniffer Jung - Last Filed: 01/21/20 22:58> - General Chief Complaint: Abdominal Pain Stated Complaint: abd pain Time Seen by Provider: 01/20/20 14:02 - History of Present Illness Initial Comments: Patient is a 64-year-old female, currently being treated for colon cancer with metastases, presenting to the emergency Department with complaints of right upper quadrant pain that is been increasing over the past 3 days. Patient states this pain is different than her normal abdominal discomfort. She describes it mostly in the right upper quadrant, constant and at times severe. Patient states 2 days ago she rated the pain about a 5/10, today it about an 8/10. She has had intermittent nausea but she does get this after her chemo treatments. She is currently taking chemo every other week. She is due for her next round Week. She does admit to some mild nausea, she did have bouts of vomiting 3 days ago when the pain started which is unusual for her. She does admit to some mild diarrhea yesterday but states she occasionally has this. She admits to history of hysterectomy, small colon resection, no other abdominal surgeries. She denies any fever, chills. She denies any cough or chest pain or shortness of breath. She states she has been urinating a little bit less but also feels like she has not been eating and drinking very much. Patient has no further complaints at this time. Upon arrival to the ER, slightly tachycardia at 107, afebrile, rest of vitals normal. (Leatha Keyes) - Related Data Home Medications Medication Instructions Recorded Confirmed Aspirin [Adult Low Dose Aspirin EC] 81 mg PO DAILY 07/10/17 01/20/20 Cholecalciferol (Vitamin D3) 2,000 unit PO DAILY 07/10/17 01/20/20 [Vitamin D3] Cyanocobalamin [Vitamin B-12] 500 mcg PO DAILY 07/10/17 01/20/20 Multivitamins, Thera [Multivitamin 1 tab PO DAILY 07/10/17 01/20/20 (formulary)] Tamoxifen Citrate 20 mg PO DAILY 12/16/17 01/20/20 Calcium And Magnesium Oral Tab 1 tab PO DAILY 01/20/20 01/20/20 (Unknown Strength) Cholestyramine (with Sugar) 4 gm PO BID 01/20/20 01/20/20 [Cholestyramine Packet] Escitalopram Oxalate [Lexapro] 10 mg PO DAILY 01/20/20 01/20/20 Ondansetron Odt [Zofran ODT] 4 mg PO Q4-6H PRN 01/20/20 01/20/20 Thiamine [Vitamin B-1] 100 mg PO DAILY 01/20/20 01/20/20 lisinopriL [Prinivil] 20 mg PO BID 01/20/20 01/20/20 Allergies Allergy/AdvReac Type Severity Reaction Status Date / Time No Known Allergies Allergy Verified 12/29/18 09:22 Review of Systems ROS Other: All systems not noted in ROS Statement are negative. <Leatha Keyes - Last Filed: 01/20/20 18:23> ROS Other: All systems not noted in ROS Statement are negative. <Jenniffer Jung - Last Filed: 01/21/20 22:58> ROS Statement: Those systems with pertinent positive or pertinent negative responses have been documented in the HPI. Past Medical History Past Medical History: Cancer, GERD/Reflux, Hypertension Additional Past Medical History / Comment(s): LT BREAST CANCER, colon cancer stage II History of Any Multi-Drug Resistant Organisms: None Reported Past Surgical History: No Surgical Hx Reported, Bowel Resection Additional Past Surgical History / Comment(s): LT BREAST LUMPECTOMY-RADIATION, Past Anesthesia/Blood Transfusion Reactions: No Reported Reaction Past Psychological History: No Psychological Hx Reported Past Alcohol Use History: Occasional Past Drug Use History: None Reported - Past Family History Mother Family Medical History: COPD, Dementia Father Family Medical History: AFIB, Cancer Additional Family Medical History / Comment(s): Lung cancer. Sister(s) Family Medical History: Cancer Additional Family Medical History / Comment(s): VOCAL CORD CANCER <Leatha Keyes - Last Filed: 01/20/20 18:23> General Exam Limitations: no limitations <Leatha Keyes - Last Filed: 01/20/20 18:23> - General Exam Comments Initial Comments: GENERAL: Patient is well-developed and well-nourished. Patient is nontoxic and in mild distress. HEAD: Atraumatic, normocephalic. EYES: Pupils equal round and reactive to light, extraocular movements intact, sclera anicteric, conjunctiva are normal. Eyelids were unremarkable. ENT: TMs normal, nares patent, oropharynx clear without exudates. Moist mucous membranes. NECK: Normal range of motion, supple without lymphadenopathy or JVD. LUNGS: Unlabored respirations. Breath sounds clear to auscultation bilaterally and equal. No wheezes rales or rhonchi. HEART: Regular rate and rhythm without murmurs, rubs or gallops. ABDOMEN: Tenderness to palpation of the right upper quadrant, epigastric area. Soft, normoactive bowel sounds. No guarding, no rebound. No masses appreciated. : Deferred MUSCULOSKELETAL: Normal extremities with adequate strength and normal range of motion, no pitting or edema. No clubbing or cyanosis. NEUROLOGICAL: Patient is alert and oriented x 3. Motor and sensory are also intact. Cranial nerves II through XII grossly intact. Symmetrical smile. Normal speech, normal gait. PSYCH: Normal mood, normal affect. SKIN: Warm, Dry, normal turgor, no rashes or lesions noted. Port present in upper right chest. (Leatha Keyes) Course Vital Signs 01/20/20 01/20/20 01/20/20 13:23 16:45 17:52 Temperature 98.4 F 98.6 F Pulse Rate 107 H 75 79 Pulse Rate [ Pulse Oximetery ] Respiratory 16 18 18 Rate Blood Pressure 101/65 154/83 122/71 Blood Pressure [Left Arm] O2 Sat by Pulse 97 97 98 Oximetry 01/20/20 17:58 Temperature 98.2 F Pulse Rate Pulse Rate [ 82 Pulse Oximetery ] Respiratory 18 Rate Blood Pressure Blood Pressure 142/77 [Left Arm] O2 Sat by Pulse 100 Oximetry Medical Decision Making - Lab Data Result diagrams: 01/20/20 14:22 01/20/20 14:22 <Leatha Keyes - Last Filed: 01/20/20 18:23> - Lab Data Result diagrams: 01/20/20 14:22 01/20/20 14:22 <Jenniffer Jung - Last Filed: 01/21/20 22:58> - Medical Decision Making Patient is a 64-year-old female, currently undergoing chemo for colon cancer, presenting with right upper quadrant pain 3 days. She did have one day of vomiting which is unusual for her. She did arrive slightly tachycardia, afebrile. She does have a lot of discomfort in the right upper quadrant, epigastric area. Labs show a elevated white count 16.9, stable hemoglobin 11.1. Creatinine is also elevated from baseline at 1.19, BUN is 25, liver enzymes are elevated, lipase is normal. Urine does show evidence for UTI. Urine culture is pending. I did do a CT of the abdomen and pelvis shows a left flank subcutaneous density, postsurgical changes within the ascending colon, no morton spicious changes for metastatic disease, possible mid ileus small bowel loops within the pelvis. Patient received fluids, morphine for her pain. She states her pain did decrease some but she is still uncomfortable. Given patient's UTI, dehydration, and elevated liver enzymes, and will admit the patient for further consult and workup. I did order an ultrasound of the gallbladder, reveals gallstones, dilated gallbladder measures 5 cm in diameter, this could relate to cholecystitis. Patient was accepted by Dr. Garza, with onc and surgery consults. Patient is in agreement with this plan of care. She'll be continued on fluids, antibiotics. Case discussed with Dr. Jung. (Leatha Keyes) I was available for consultation in the emergency department. The history and physical exam were done by the midlevel provider. I was consulted for this patients care. I reviewed the case with the midlevel provider and based on their presentation of the patient, I agree with the assessment, medical decision making and plan of care as documented. Chart was dictated using [employer] dictation software. Attempts were made to correct any dictation errors however some typographical errors may persist. (Jenniffer Jung) - Lab Data Lab Results 01/20/20 01/20/20 01/20/20 Range/Units 14:22 14:22 14:22 WBC 16.9 H (3.8-10.6) k/uL RBC 3.36 L (3.80-5.40) m/uL Hgb 11.1 L (11.4-16.0) gm/dL Hct 33.4 L (34.0-46.0) % MCV 99.3 (80.0-100.0) fL MCH 33.1 (25.0-35.0) pg MCHC 33.3 (31.0-37.0) g/dL RDW 16.7 H (11.5-15.5) % Plt Count 119 L (150-450) k/uL MPV 9.7 Neutrophils % 77 % Lymphocytes % 16 % Monocytes % 5 % Eosinophils % 0 % Basophils % 0 % Neutrophils # 13.0 H (1.3-7.7) k/uL Lymphocytes # 2.7 (1.0-4.8) k/uL Monocytes # 0.9 (0-1.0) k/uL Eosinophils # 0.1 (0-0.7) k/uL Basophils # 0.0 (0-0.2) k/uL Anisocytosis Slight Macrocytosis Slight PT 9.4 (9.0-12.0) sec INR 0.9 (<1.2) APTT 20.1 L (22.0-30.0) sec Sodium (137-145) mmol/L Potassium (3.5-5.1) mmol/L Chloride (98-107) mmol/L Carbon Dioxide (22-30) mmol/L Anion Gap mmol/L BUN (7-17) mg/dL Creatinine (0.52-1.04) mg/dL Est GFR (CKD-EPI)AfAm (>60 ml/min/1.73 sqM) Est GFR (CKD-EPI)NonAf (>60 ml/min/1.73 sqM) Glucose (74-99) mg/dL Plasma Lactic Acid Bradley (0.7-2.0) mmol/L Calcium (8.4-10.2) mg/dL Total Bilirubin (0.2-1.3) mg/dL AST (14-36) U/L ALT (4-34) U/L Alkaline Phosphatase (38-126) U/L Total Protein (6.3-8.2) g/dL Albumin (3.5-5.0) g/dL Amylase (30-110) U/L Lipase (23-300) U/L Urine Color Yellow Urine Appearance Cloudy H (Clear) Urine pH 5.5 (5.0-8.0) Ur Specific [place] 1.013 (1.001-1.035) Urine Protein Trace H (Negative) Urine Glucose (UA) Negative (Negative) Urine Ketones Negative (Negative) Urine Blood Small H (Negative) Urine Nitrite Negative (Negative) Urine Bilirubin Negative (Negative) Urine Urobilinogen <2.0 (<2.0) mg/dL Ur Leukocyte Esterase Large H (Negative) Urine RBC 6 H (0-5) /hpf Urine WBC 34 H (0-5) /hpf Ur Squamous Epith Cells 3 (0-4) /hpf Urine Bacteria Rare H (None) /hpf Hyaline Casts 19 H (0-2) /lpf Urine Mucus Many H (None) /hpf 01/20/20 01/20/20 Range/Units 14:22 14:22 WBC (3.8-10.6) k/uL RBC (3.80-5.40) m/uL Hgb (11.4-16.0) gm/dL Hct (34.0-46.0) % MCV (80.0-100.0) fL MCH (25.0-35.0) pg MCHC (31.0-37.0) g/dL RDW (11.5-15.5) % Plt Count (150-450) k/uL MPV Neutrophils % % Lymphocytes % % Monocytes % % Eosinophils % % Basophils % % Neutrophils # (1.3-7.7) k/uL Lymphocytes # (1.0-4.8) k/uL Monocytes # (0-1.0) k/uL Eosinophils # (0-0.7) k/uL Basophils # (0-0.2) k/uL Anisocytosis Macrocytosis PT (9.0-12.0) sec INR (<1.2) APTT (22.0-30.0) sec Sodium 137 (137-145) mmol/L Potassium 3.6 (3.5-5.1) mmol/L Chloride 103 (98-107) mmol/L Carbon Dioxide 29 (22-30) mmol/L Anion Gap 5 mmol/L BUN 25 H (7-17) mg/dL Creatinine 1.19 H (0.52-1.04) mg/dL Est GFR (CKD-EPI)AfAm 56 (>60 ml/min/1.73 sqM) Est GFR (CKD-EPI)NonAf 48 (>60 ml/min/1.73 sqM) Glucose 111 H (74-99) mg/dL Plasma Lactic Acid Bradley 1.6 (0.7-2.0) mmol/L Calcium 9.8 (8.4-10.2) mg/dL Total Bilirubin 0.3 (0.2-1.3) mg/dL AST 137 H (14-36) U/L ALT 234 H (4-34) U/L Alkaline Phosphatase 205 H (38-126) U/L Total Protein 7.0 (6.3-8.2) g/dL Albumin 3.8 (3.5-5.0) g/dL Amylase 62 (30-110) U/L Lipase 212 (23-300) U/L Urine Color Urine Appearance (Clear) Urine pH (5.0-8.0) Ur Specific [place] (1.001-1.035) Urine Protein (Negative) Urine Glucose (UA) (Negative) Urine Ketones (Negative) Urine Blood (Negative) Urine Nitrite (Negative) Urine Bilirubin (Negative) Urine Urobilinogen (<2.0) mg/dL Ur Leukocyte Esterase (Negative) Urine RBC (0-5) /hpf Urine WBC (0-5) /hpf Ur Squamous Epith Cells (0-4) /hpf Urine Bacteria (None) /hpf Hyaline Casts (0-2) /lpf Urine Mucus (None) /hpf Disposition Decision Date: 01/20/20 Decision Time: 17:14 <Leatha Keyes - Last Filed: 01/20/20 18:23> <Jenniffer Jung - Last Filed: 01/21/20 22:58> Clinical Impression: Right upper quadrant abdominal pain, RUKHSANA (acute kidney injury), Dehydration, UTI (urinary tract infection), Cholecystitis Disposition: ADMITTED IP TO THIS HOSP Condition: Stable
[2020-01-20 15:18] LABS: INR 0.9 (<1.2); Partial Thromboplastin Time 20.1 sec (22.0-30.0); Prothrombin Time 9.4 sec (9.0-12.0)
--- NOTE | 2020-01-20 16:19 | CT ---
EXAMINATION TYPE: CT abdomen pelvis w con DATE OF EXAM: 01/20/2020 COMPARISON: 08/05/2019 INDICATION: RUQ pain x 3 days, history of colon cancer. DLP: 959.3 mGycm, Automated exposure control for dose reduction was used. CONTRAST: 80 mL of Isovue 300. Study performed without Oral Contrast TECHNIQUE: Axial images were obtained from above the diaphragm to the pubic rami in the axial plane a t 5 mm thick sections. Reconstructed images are reviewed on the computer in the coronal plane. FINDINGS: Limited CT sections are obtained the lung bases. The lung bases are clear. CT ABDOMEN: Liver: Normal Spleen: Normal Pancreas: Normal Adrenal glands: The adrenal glands are normal. Gallbladder: Distended. No gallstones are identified. Kidneys: No masses are evident. No hydronephrosis is present. No cysts are present. Delayed images were obtained through the kidneys, which remain unremarkable. Aorta: Vascular calcification is within the aorta. Inferior vena cava: Normal. CT PELVIS: Postsurgical changes are within the ascending colon region. There is some fluid-filled small bowel lo ops within the pelvis could be some mild ileus. Study is without oral contrast limiting bowel evaluat ion. Appendix: Not identified. Urinary bladder: Normal. Genitourinary structures: Uterus and ovaries are not identified. No free fluid is within the pelvis. Osseous structures: No suspicious lytic or sclerotic lesions. There is a subcutaneous area of increased density within the posterior left flank region. Series 201 image 42. This measures 2.4 cm in length and extends from the subcutaneous tissue. Correlate for seba ceous cyst, small hematoma, metastatic lesion. IMPRESSIONS: 1. Left flank subcutaneous density. 2. Postsurgical changes within the ascending colon region. 3. No suspicious changes for metastatic disease. 4. Possible mild ileus small bowel loops within the pelvis.
[2020-01-20] MEDS ORDERED: NALOXONE 0.4 MG/ML 1 ML VIAL IV PRN (17:09)
[2020-01-20] MEDS ORDERED: ONDANSETRON 4 MG/2 ML VIAL IVP PRN (17:09)
[2020-01-20] MEDS ORDERED: MORPHINE SULFATE 4 MG/ML SYRINGE IV PRN (17:09)
[2020-01-20] MEDS ORDERED: cefTRIAXone IN SWFI 1,000 MG/10 ML SYRINGE IVP STA (17:14)
[2020-01-20] MEDS: SODIUM CHLORIDE 0.9% 1,000 ML IV SCH (17:49)
--- NOTE | 2020-01-20 17:50 | US ---
EXAMINATION TYPE: US gallbladder DATE OF EXAM: 01/20/2020 COMPARISON: CT 01/20/2020 CLINICAL HISTORY: RUQ pain, elevated liver enzymes. History of colon, breast, and ovarian cancer. Dif ficult exam due to overlying bowel gas EXAM MEASUREMENTS: Liver Length: 13.9 cm Gallbladder Wall: 0.9 cm CBD: 0.6 cm Right Kidney: 8.9 x 3.9 x 4.5 cm Pancreas: Tail obscured by overlying bowel gas, duct visualized measuring 0.3 cm Liver: Heterogeneous Gallbladder: Stones visualized. Wall thickened with pericholecystic fluid Evidence for sonographic Tijerina's sign: Yes CBD: Measuring upper limits of normal Right Kidney: Measuring small. No hydronephrosis. IMPRESSION: There are gallstones. There is dilated gallbladder that measures 5 cm in diameter. This c ould relate to cholecystitis. Bile ducts are not dilated.
[2020-01-20] MEDS ORDERED: PIPERACILLIN-TAZOBACTAM 3.375 GM in SODIUM CHLORIDE 0.9% 100 ML IVPB STA (17:57)
[2020-01-20] MEDS ORDERED: ONDANSETRON ODT 4 MG TAB PO PRN (21:41)
[2020-01-20] MEDS ORDERED: ALPRAZolam 0.25 MG TAB PO PRN (21:45)
--- NOTE | 2020-01-20 22:16 | P.CONS ---
History of Present Illness - Reason for Consult Consult date: 01/20/20 Metastatic Colon Cancer Requesting physician: Leatha Keyes - Chief Complaint Abdominal Pain - History of Present Illness Ms Friend is a pleasant white female with overall minor medical problems. On routine mammogram done on 06/23/17, the patient was noted to have 2 masses on the left, the first at anterior depth in the upper outer quadrant measuring 4 mm and the second also in the upper outer quadrant in the middle left measuring 5-6 L. Regional calcifications are also seen in the right upper central, slightly inner breast at 12:30-1 o'clock position. Additional confirmatory imaging was done on 06/26/17, revealing large area of pleomorphic calcification in the upper central right breast about 10.5 cm from the nipple, and multiple foci of pleomorphic microcalcifications in the upper central and outer breast on the left. Ultrasound was done on the same day, revealing a 0.3 x 0.4 x 0.4 cm cystic benign appearing lesion at 3:00 a 0.7 x 0.6 x 0.4 cm cystic benign lesion at 3:00 on the left. Right breast ultrasound showed a focal area of concern in the retro-areolar region. The patient had bilateral stereotactic core biopsy showing fibrocystic changes on the right, and focal atypical lobular hyperplasia on the left, on 07/16/17. She then proceeded to left breast biopsy with needle localization on 08/12/17. This revealed a low-grade DCIS, 7 mm by direct measurement, less than 1 mm from the inked margin. the tumor was strongly ER/IL positive. the patient was thus referred here for further evaluation and recommendations. She denied any prior breast biopsies. Her last mammogram before this one had been several years before. We discussed having additional excision per protocol, or proceeding straight to RT , based on the small size and low risk profile. She ultimately decided on the latter. She completed RT on 10/30/17. She then started Tamoxifen She had an elective colonoscopy on 12/18/17, revealing a partially obstructing lesion in the mid ascending colons, beyond which the scope could not be passed. The pathology was positive for adenoca. She had a rt hemicolectomy on 01/06/18 , revealing a 4 cm , grade II, T 3 tumor with 0/23/nodes positive. She had an Oncotype colon done, which revealed a score of 22, with a 14% chance of 3 year recurrence, and 5 % reduction with 5FU/LV, and an additional 2 % with 5FU/Oxali. Ultimately decided on Xeloda. 02/23/17, and is s/p 2 cycles 04/27/18-Pt here today for f/u after prolonged hospitailzation after C 2, 03/26/18-04/16/18 for grade 4 SE of diarrhea, PPE and mucositis that developed after completion of her 2nd cycle of adjuvant xeloda (8 planned). Her SE were pro gressive during admit, she did require TPN briefly. Post discharge she has been doing well, 1 episode of diarrhea yesterday, taking antidiarrheals PRN, skin and mouth are healed, she has an appetite again, feels much better, no other c/o on a 14 point ROS. As above. The pt was started back on Xeloda with 50% dose reduction , 1000 mg BID and is s/p 3 cycles Dose was increased to 1300 mg BID at her visit on 07/01/18. She is s/p 3cycles She thus completed a total of 8 cycles, with the above, on 08/30/18. Based on the pattern of her side effects, she did not futher dose increase beyond the 13 00 BID Colonoscopy in 01/04 revealed 2 polyps which were remioved, with 2 yr f/u recommended. 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 In July 2019 - CT in 08/05 showed a new 5.2 cm ovarian mass on the left the patient was referred to [facility] oncology, Dr. Barakat at [facility]. She underwent resection with bilateral salpingo-oophorectomy and total abdominal hysterectomy laparoscopically on 09/01/19. Final pathology revealed the left ova francisco mass to be consistent with colon primary, PET scan subsequently from 10/05 was negative for any residual uptake. She was PD-1 < 1% She was started on FOLFOX with 50% 5 FU dose reduction, on 10/26/19, and is s/p 4 cycles Additional biomarker testing revealed MSI stable, KRAS wild type and BRAF V 600E positive She was seen at [facility], and it was recommended to change her regimen to FOLFOXIRI + jack. She is status post cycle 6 on 01/11/20. Dilma was seen in office this week, new complaints of RUQ pain, Radiating from back. Her last few CMP have shown increased LFTs. Initially felt to be secondary to chemotherapy, although appears to be persistent. Urinalysis was ordered on 01/17 which did not show significant abnormality, although urine culture resulted positive today. 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 CT abdomen and pelvis performed and no significant abnormality noted. Ultrasound gallbladder did reveal dilation and gallstones. She states she does not notice worsening symptoms with eating. She was given abx in ER and zosyn was continued. Review of Systems All systems: negative Constitutional: Reports as per HPI Past Medical History Past Medical History: Cancer, GERD/Reflux, Hypertension Additional Past Medical History / Comment(s): LT BREAST CANCER, colon cancer stage II History of Any Multi-Drug Resistant Organisms: None Reported Past Surgical History: No Surgical Hx Reported, Bowel Resection Additional Past Surgical History / Comment(s): LT BREAST LUMPECTOMY-RADIATION, Past Anesthesia/Blood Transfusion Reactions: No Reported Reaction Past Psychological History: No Psychological Hx Reported Past Alcohol Use History: Occasional Past Drug Use History: None Reported - Past Family History Mother Family Medical History: COPD, Dementia Father Family Medical History: AFIB, Cancer Additional Family Medical History / Comment(s): Lung cancer. Sister(s) Family Medical History: Cancer Additional Family Medical History / Comment(s): VOCAL CORD CANCER Medications and Allergies Home Medications Medication Instructions Recorded Confirmed Type Aspirin [Adult Low Dose Aspirin EC] 81 mg PO DAILY 07/10/17 01/20/20 History Cholecalciferol (Vitamin D3) 2,000 unit PO DAILY 07/10/17 01/20/20 History [Vitamin D3] Cyanocobalamin [Vitamin B-12] 500 mcg PO DAILY 07/10/17 01/20/20 History Multivitamins, Thera [Multivitamin 1 tab PO DAILY 07/10/17 01/20/20 History (formulary)] Tamoxifen Citrate 20 mg PO DAILY 12/16/17 01/20/20 History Calcium And Magnesium Oral Tab 1 tab PO DAILY 01/20/20 01/20/20 History (Unknown Strength) Cholestyramine (with Sugar) 4 gm PO BID 01/20/20 01/20/20 History [Cholestyramine Packet] Escitalopram Oxalate [Lexapro] 10 mg PO DAILY 01/20/20 01/20/20 History Ondansetron Odt [Zofran ODT] 4 mg PO Q4-6H PRN 01/20/20 01/20/20 History Thiamine [Vitamin B-1] 100 mg PO DAILY 01/20/20 01/20/20 History lisinopriL [Prinivil] 20 mg PO BID 01/20/20 01/20/20 History Allergies Allergy/AdvReac Type Severity Reaction Status Date / Time No Known Allergies Allergy Verified 12/29/18 09:22 Physical Exam Vitals: Vital Signs Temp Pulse Pulse Resp BP BP Pulse Ox 01/20/20 21:32 98.7 F 81 18 116/76 98 01/20/20 19:11 82 18 01/20/20 17:58 98.2 F 82 18 142/77 100 01/20/20 17:52 79 18 122/71 98 01/20/20 16:45 98.6 F 75 18 154/83 97 01/20/20 13:23 98.4 F 107 H 16 101/65 97 Intake and Output 01/20/20 01/20/20 01/20/20 06:59 14:59 22:59 Other: Weight 78.018 kg 78.018 kg Telemedicine Visit. With patients consent. Audio Results CBC & Chem 7: 01/20/20 14:22 01/20/20 14:22 Labs: Abnormal Lab Results - Last 24 Hours (Table) 01/20/20 01/20/20 01/20/20 Range/Units 14:22 14:22 14:22 WBC 16.9 H (3.8-10.6) k/uL RBC 3.36 L (3.80-5.40) m/uL Hgb 11.1 L (11.4-16.0) gm/dL Hct 33.4 L (34.0-46.0) % RDW 16.7 H (11.5-15.5) % Plt Count 119 L (150-450) k/uL Neutrophils # 13.0 H (1.3-7.7) k/uL APTT 20.1 L (22.0-30.0) sec BUN (7-17) mg/dL Creatinine (0.52-1.04) mg/dL Glucose (74-99) mg/dL AST (14-36) U/L ALT (4-34) U/L Alkaline Phosphatase (38-126) U/L Urine Appearance Cloudy H (Clear) Urine Protein Trace H (Negative) Urine Blood Small H (Negative) Ur Leukocyte Esterase Large H (Negative) Urine RBC 6 H (0-5) /hpf Urine WBC 34 H (0-5) /hpf Urine Bacteria Rare H (None) /hpf Hyaline Casts 19 H (0-2) /lpf Urine Mucus Many H (None) /hpf 01/20/20 Range/Units 14:22 WBC (3.8-10.6) k/uL RBC (3.80-5.40) m/uL Hgb (11.4-16.0) gm/dL Hct (34.0-46.0) % RDW (11.5-15.5) % Plt Count (150-450) k/uL Neutrophils # (1.3-7.7) k/uL APTT (22.0-30.0) sec BUN 25 H (7-17) mg/dL Creatinine 1.19 H (0.52-1.04) mg/dL Glucose 111 H (74-99) mg/dL AST 137 H (14-36) U/L ALT 234 H (4-34) U/L Alkaline Phosphatase 205 H (38-126) U/L Urine Appearance (Clear) Urine Protein (Negative) Urine Blood (Negative) Ur Leukocyte Esterase (Negative) Urine RBC (0-5) /hpf Urine WBC (0-5) /hpf Urine Bacteria (None) /hpf Hyaline Casts (0-2) /lpf Urine Mucus (None) /hpf Comments: Gallbladder Ultrasound. CT scan - abdomen: report reviewed CT scan - pelvis: report reviewed Assessment and Plan (1) Metastatic colon cancer in female Current Visit: Yes Status: Acute Code(s): C18.9 - MALIGNANT NEOPLASM OF COLON, UNSPECIFIED SNOMED Code(s): 160896060 (2) History of breast cancer Current Visit: Yes Status: Acute Code(s): Z85.3 - PERSONAL HISTORY OF MALIGNANT NEOPLASM OF BREAST SNOMED Code(s): 941759787 (3) RUKHSANA (acute kidney injury) Current Visit: Yes Status: Acute Code(s): N17.9 - ACUTE KIDNEY FAILURE, UNSPECIFIED SNOMED Code(s): 95688121 (4) Cholecystitis Current Visit: Yes Status: Acute Code(s): K81.9 - CHOLECYSTITIS, UNSPECIFIED SNOMED Code(s): 33243004 (5) Right upper quadrant abdominal pain Current Visit: Yes Status: Acute Code(s): R10.11 - RIGHT UPPER QUADRANT PAIN SNOMED Code(s): 600417556 (6) UTI (urinary tract infection) Current Visit: Yes Status: Acute Code(s): N39.0 - URINARY TRACT INFECTION, S ITE NOT SPECIFIED SNOMED Code(s): 66950827 Plan: Patient is on anti-angiogenesis and surgical intervention is NOT recommended unl ess absolutely emergent at this time as delayed wound healing is high risk with Zirabev. - If surgical intervention is needed and safe to hold off 2-3 weeks with conservative treatment of abx and pain medication this would be in best interest. If emergent surgical intervention needed, patient and family adamant to have choice surgeon as Dr. Tang. They understand if emergent this may not be possible, although will pass along info. Also very close monitoring of wound healing - Continue Treatment for UTI - Will hold anti-angiogenesis in anticipation of possible eventual surgical intervention
[2020-01-20] MEDS: HYDROmorphone 0.5 MG/0.5 ML SYRINGE IVP PRN (22:31)
[2020-01-20] MEDS: lisinopriL 20 MG TAB PO SCH (22:31)
[2020-01-20] MEDS: ESCITALOPRAM 20 MG TAB PO SCH (23:10)
[2020-01-21] MEDS: SODIUM CHLORIDE 0.9% 1,000 ML IV SCH ×2 (06:22→12:28)
[2020-01-21] MEDS: HYDROmorphone 0.5 MG/0.5 ML SYRINGE IVP PRN ×3 (08:05→19:48)
[2020-01-21] MEDS: CHOLECALCIFEROL 1,000 UNIT TAB PO SCH (09:12)
[2020-01-21] MEDS: MULTIVITAMINS, THERA 1 EACH TAB PO SCH (09:12)
[2020-01-21] MEDS: lisinopriL 20 MG TAB PO SCH ×2 (09:12→19:48)
[2020-01-21] MEDS: ASPIRIN 81 MG PO SCH (09:13)
[2020-01-21] MEDS: TAMOXIFEN 10 MG TAB PO SCH (09:13)
[2020-01-21] MEDS: ESCITALOPRAM 20 MG TAB PO SCH ×2 (09:26→19:48)
[2020-01-21] MEDS ORDERED: ACETAMINOPHEN TAB 325 MG TAB PO PRN (10:23)
--- NOTE | 2020-01-21 10:34 | P.HPIM ---
History of Present Illness H&P Date: 01/21/20 HISTORY OF PRESENT ILLNESS This is a 62-year-old female patient of Dr. Asif with past medical history of hypertension, left-sided breast cancer status post radiation therapy, colon cancer status post hemicolectomy in December 2017. Please see oncology note regarding history. Patient underwent a CAT scan in July of this year finding ovarian mass on the left side down at [facility] status post hysterectomy and bilateral salpingo-oophorectomy in August of this year. Pathology confirmed: As primary site. Patient was started on FOLFOX and 5-FU initially and changed to FOLFOXIRI + jack. She is status post cycle 6 on 01/11/20. Patient complains of epigastric pain right upper and lower quadrant pain with right upper quadrant tenderness. She has had some decreased appetite with minimal weight loss. She's had a little nausea without vomiting. Her last bowel movement was small yesterday, no diarrhea. Patient states abdominal pain continued to worsen and on Thursday night she vomited all night as well as had diarrhea. She was in contact with her oncology [employer] and was advised come in the hospital for further evaluation and treatment. CAT scan of the abdomen and pelvis with contrast revealed left flank subcutaneous density. Postsurgical changes within the ascending colon region. No suspicious changes for metastatic disease. Possible mild ileus small bowel loops within the pelvis. Ultrasound of the gallbladder reveals gallstones, dilated gallbladder measures 5 cm in diameter. This could relate to cholecystitis. Bile ducts are not dilated. Pat ient was afebrile, heart rate currently 76, blood pressure 126/75, pulse ox 97% on room air. WBC 16.9, hemoglobin 1.1, platelet count 119. Electrolytes were normal. Renal function slightly elevated at BUN 25 and creatinine 1.19. Liver function tests elevated with AST 137, ALT 234, alkaline phosphatase 205. Urinalysis cloudy, blood small, leukoesterase large, WBCs 34, bacteria rare. Patient was given a dose of ceftriaxone, started on IV fluids and morphine for pain, Zofran for nausea and admitted to the observation unit. REVIEW OF SYSTEMS Constitutional: No fever, no chills, no night sweats. Minimal weight loss. No weakness, fatigue or lethargy. No daytime sleepiness. EENT: No headache. No blurred vision or double vision, no loss of vision. No loss of Hearing, no ringing in the ears, no dizziness. No nasal drainage or congestion. No epistaxis. No sore throat. Lungs: No shortness of breath, cough, no sputum production. No wheezing. Cardiovascular: No chest pain, no lower extremity edema. No palpitations. No paroxysmal nocturnal dyspnea. No orthopnea. No lightheadedness or dizziness. No syncopal episodes. Abdominal: Reports abdominal pain. Reports nausea, reports vomiting. Reports diarrhea. No constipation. No bloody or tarry stools reports loss of appetite. Genitourinary: No dysuria, increased frequency, urgency. No urinary retention. Musculoskeletal: No myalgias. No muscle weakness, no gait dysfunction, no frequent falls. No back pain. No neck pain. Integumentary: No wounds, no lesions. No rash or pruritus. No unusual b ruising. No change in hair or nails. Neurologic: No aphasia. No facial droop. No change in mentation. No head injury. No headache. No paralysis. No paresthesia. Psychiatric: No depression. No anxiety. No mood swings. Endocrine: No abnormal blood sugars. SOCIAL HISTORY Patient was a smoker and quit in December 2017. No alcohol use. No marijuana or illicit drug use. Patient lives alone and is a . Patient's daughter has been helping her at home. FAMILY HISTORY Mother is in her 80s with history of COPD and dementia. Father is in his 80s with history of atrial fibrillation. Patient has 1 sister with no major medical problems. Patient does not have any brothers. Patient has 2 daughters with no major medical problems. PHYSICAL EXAMINATION Gen: This is a 64-year-old female. She is sitting up in bed and appears to be comfortable and in no acute distress. HEENT: Head is atraumatic, normocephalic. Pupils equal, round. Sclerae is anicteric. NECK: Supple. No JVD. No lymphadenopathy. No thyromegaly. LUNGS: Clear to auscultation. No wheezes or rhonchi. No intercostal retractions. HEART: Regular rate and rhythm. No murmur. ABDOMEN: Soft. Bowel sounds are present. No masses. Right upper quadrant tenderness. EXTREMITIES: No pedal edema. No calf tenderness. Dorsalis pedis +2 bila terally. NEUROLOGICAL: Patient is awake, alert and oriented x3. Cranial nerves 2 through 12 are grossly intact. ASSESSMENT AND PLAN 1. Acute right upper quadrant pain and elevated liver function tests, mostly secondary to acute cholecystitis. Consult with general surgery. Patient is adamant that Dr. Tang would perform surgery which would not be arranged for several weeks. Patient has discussed this with oncology already and patient will need to be off chemotherapy. Continue Zofran as needed for nausea, morphine as needed for pain. We will also add in [place] and Tylenol as patient's pain improves. Consult in place with general surgery. Repeat CMP tomorrow 2. Metastatic colon cancer status post hysterectomy and bilateral salpingo- oophorectomy in August and currently undergoing chemotherapy. Consult with oncology appreciated. 3. History of colon cancer status post hemicolectomy in December [address] Kulkarni. 4. Nausea, vomiting, diarrhea secondary to chemotherapy. Consult with Dr. oncology. Continue IV fluids. Diarrhea seems to have resolved. 5. Acute urinary tract infection suspected. Patient denies dysuria. Patient will be on ceftriaxone until cultures finalized. 6. Acute kidney injury. Baseline creatinine 0.5. Continue IV fluids. 7. Hypertension. Continue lisinopril 20 mg twice daily. 8. Thrombocytopenia secondary to chemotherapy. Monitor. 9. History of breast cancer status post lumpectomy and radiation. Continue tamoxifen. 10. DVT prophylaxis. Lovenox daily. 11. GI prophylaxis. Protonix. Patient will be admitted to the hospital for a minimum of 2 night stay. DISCHARGE PLAN Home. Impression and plan of care have been directed as dictated by the signing physician. Opal Moreno nurse practitioner acting as scribe for signing physician. Past Medical History Past Medical History: Cancer, GERD/Reflux, Hypertension Additional Past Medical History / Comment(s): LT BREAST CANCER, colon cancer stage II History of Any Multi-Drug Resistant Organisms: None Reported Past Surgical History: No Surgical Hx Reported, Bowel Resection Additional Past Surgical History / Comment(s): LT BREAST LUMPECTOMY-RADIATION, Past Anesthesia/Blood Transfusion Reactions: No Reported Reaction Past Psychological History: No Psychological Hx Reported Past Alcohol Use History: Occasional Past Drug Use History: None Reported - Past Family History Mother Family Medical History: COPD, Dementia Father Family Medical History: AFIB, Cancer Additional Family Medical History / Comment(s): Lung cancer. Sister(s) Family Medical History: Cancer Additional Family Medical History / Comment(s): VOCAL CORD CANCER Medications and Allergies Home Medications Medication Instructions Recorded Confirmed Type Aspirin [Adult Low Dose Aspirin EC] 81 mg PO DAILY 07/10/17 01/20/20 History Cholecalciferol (Vitamin D3) 2,000 unit PO DAILY 07/10/17 01/20/20 History [Vitamin D3] Cyanocobalamin [Vitamin B-12] 500 mcg PO DAILY 07/10/17 01/20/20 History Multivitamins, Thera [Multivitamin 1 tab PO DAILY 07/10/17 01/20/20 History (formulary)] Tamoxifen Citrate 20 mg PO DAILY 12/16/17 01/20/20 History Calcium And Magnesium Oral Tab 1 tab PO DAILY 01/20/20 01/20/20 History (Unknown Strength) Cholestyramine (with Sugar) 4 gm PO BID 01/20/20 01/20/20 History [Cholestyramine Packet] Escitalopram Oxalate [Lexapro] 10 mg PO DAILY 01/20/20 01/20/20 History Ondansetron Odt [Zofran ODT] 4 mg PO Q4-6H PRN 01/20/20 01/20/20 History Thiamine [Vitamin B-1] 100 mg PO DAILY 01/20/20 01/20/20 History lisinopriL [Prinivil] 20 mg PO BID 01/20/20 01/20/20 History Allergies Allergy/AdvReac Type Severity Reaction Status Date / Time No Known Allergies Allergy Verified 12/29/18 09:22 Physical Exam Vitals: Vital Signs Temp Pulse Pulse Resp BP BP BP 01/21/20 07:58 98.1 F 76 16 126/75 01/21/20 03:20 98.4 F 92 18 117/63 01/20/20 22:38 81 18 01/20/20 21:32 98.7 F 81 18 116/76 01/20/20 19:11 82 18 01/20/20 17:58 98.2 F 82 18 142/77 01/20/20 17:52 79 18 122/71 01/20/20 16:45 98.6 F 75 18 154/83 01/20/20 13:23 98.4 F 107 H 16 101/65 Pulse Ox 01/21/20 07:58 97 01/21/20 03:20 99 01/20/20 22:38 12/04/20 21:32 98 01/20/20 19:11 01/20/20 17:58 100 01/20/20 17:52 98 01/20/20 16:45 97 01/20/20 13:23 97 Intake and Output 01/20/20 01/21/20 01/21/20 22:59 06:59 14:59 Other: Voiding Method Toilet Toilet # Voids 1 # Bowel Movements 3 Weight 78.018 kg Results CBC & Chem 7: 01/20/20 14:22 01/20/20 14:22 Labs: Abnormal Lab Results - Last 24 Hours (Table) 01/20/20 01/20/20 01/20/20 Range/Units 14:22 14:22 14:22 WBC 16.9 H (3.8-10.6) k/uL RBC 3.36 L (3.80-5.40) m/uL Hgb 11.1 L (11.4-16.0) gm/dL Hct 33.4 L (34.0-46.0) % RDW 16.7 H (11.5-15.5) % Plt Count 119 L (150-450) k/uL Neutrophils # 13.0 H (1.3-7.7) k/uL APTT 20.1 L (22.0-30.0) sec BUN (7-17) mg/dL Creatinine (0.52-1.04) mg/dL Glucose (74-99) mg/dL AST (14-36) U/L ALT (4-34) U/L Alkaline Phosphatase (38-126) U/L Urine Appearance Cloudy H (Clear) Urine Protein Trace H (Negative) Urine Blood Small H (Negative) Ur Leukocyte Esterase Large H (Negative) Urine RBC 6 H (0-5) /hpf Urine WBC 34 H (0-5) /hpf Urine Bacteria Rare H (None) /hpf Hyaline Casts 19 H (0-2) /lpf Urine Mucus Many H (None) /hpf 01/20/20 Range/Units 14:22 WBC (3.8-10.6) k/uL RBC (3.80-5.40) m/uL Hgb (11.4-16.0) gm/dL Hct (34.0-46.0) % RDW (11.5-15.5) % Plt Count (150-450) k/uL Neutrophils # (1.3-7.7) k/uL APTT (22.0-30.0) sec BUN 25 H (7-17) mg/dL Creatinine 1.19 H (0.52-1.04) mg/dL Glucose 111 H (74-99) mg/dL AST 137 H (14-36) U/L ALT 234 H (4-34) U/L Alkaline Phosphatase 205 H (38-126) U/L Urine Appearance (Clear) Urine Protein (Negative) Urine Blood (Negative) Ur Leukocyte Esterase (Negative) Urine RBC (0-5) /hpf Urine WBC (0-5) /hpf Urine Bacteria (None) /hpf Hyaline Casts (0-2) /lpf Urine Mucus (None) /hpf Microbiology - Last 24 Hours (Table) 01/20/20 14:22 Urine Culture - Preliminary Urine,Voided Thrombosis Risk Factor Assmnt - Choose All That Apply Any of the Below Risk Factors Present?: No Each Risk Factor Represents 2 Points: Age 61-74 years Thrombosis Risk Factor Assessment Total Risk Factor Score: 2 Thrombosis Risk Factor Assessment Level: Low Risk
--- NOTE | 2020-01-21 11:02 | P.GSCN ---
History of Present Illness Consult date: 01/21/20 Reason for Consult: Cholecystitis History of present illness: This a 64-year-old female who was admitted to the hospital complaints of right quadrant pain. Patient has history of metastatic colon cancer. Patient is currently undergoing chemotherapy. Patient developed pain this week. Pain is mainly upper quadrant. Her ultrasound shows evidence of pericholecystic fluid thickened gallbladder wall and cholelithiasis. Past Medical History Past Medical History: Cancer, GERD/Reflux, Hypertension Additional Past Medical History / Comment(s): LT BREAST CANCER, colon cancer st age II History of Any Multi-Drug Resistant Organisms: None Reported Past Surgical History: No Surgical Hx Reported, Bowel Resection Additional Past Surgical History / Comment(s): LT BREAST LUMPECTOMY-RADIATION, Past Anesthesia/Blood Transfusion Reactions: No Reported Reaction Past Psychological History: No Psychological Hx Reported Past Alcohol Use History: Occasional Past Drug Use History: None Reported - Past Family History Mother Family Medical History: COPD, Dementia Father Family Medical History: AFIB, Cancer Additional Family Medical History / Comment(s): Lung cancer. Sister(s) Family Medical History: Cancer Additional Family Medical History / Comment(s): VOCAL CORD CANCER Medications and Allergies Home Medications Medication Instructions Recorded Confirmed Type Aspirin [Adult Low Dose Aspirin EC] 81 mg PO DAILY 07/10/17 01/20/20 History Cholecalciferol (Vitamin D3) 2,000 unit PO DAILY 07/10/17 01/20/20 History [Vitamin D3] Cyanocobalamin [Vitamin B-12] 500 mcg PO DAILY 07/10/17 01/20/20 History Multivitamins, Thera [Multivitamin 1 tab PO DAILY 07/10/17 01/20/20 History (formulary)] Tamoxifen Citrate 20 mg PO DAILY 12/16/17 01/20/20 History Calcium And Magnesium Oral Tab 1 tab PO DAILY 01/20/20 01/20/20 History (Unknown Strength) Cholestyramine (with Sugar) 4 gm PO BID 01/20/20 01/20/20 History [Cholestyramine Packet] Escitalopram Oxalate [Lexapro] 10 mg PO DAILY 01/20/20 01/20/20 History Ondansetron Odt [Zofran ODT] 4 mg PO Q4-6H PRN 01/20/20 01/20/20 History Thiamine [Vitamin B-1] 100 mg PO DAILY 01/20/20 01/20/20 History lisinopriL [Prinivil] 20 mg PO BID 01/20/20 01/20/20 History Allergies Allergy/AdvReac Type Severity Reaction Status Date / Time No Known Allergies Allergy Verified 12/29/18 09:22 Surgical - Exam Vital Signs Temp Pulse Resp BP Pulse Ox 98.4 F 107 H 16 101/65 97 01/20/20 13:23 01/20/20 13:23 01/20/20 13:23 01/20/20 13:23 01/20/20 13:23 - General well developed, well nourished, no distress - Eyes PERRL - ENT normal pinna - Neck no masses - Respiratory normal expansion - Cardiovascular Rhythm: regular - Abdomen Mild right quadrant tenderness Abdomen: soft Results - Labs 01/20/20 14:22 01/20/20 14:22 Abnormal Lab Results - Last 24 Hours (Table) 01/20/20 01/20/20 01/20/20 Range/Units 14:22 14:22 14:22 WBC 16.9 H (3.8-10.6) k/uL RBC 3.36 L (3.80-5.40) m/uL Hgb 11.1 L (11.4-16.0) gm/dL Hct 33.4 L (34.0-46.0) % RDW 16.7 H (11.5-15.5) % Plt Count 119 L (150-450) k/uL Neutrophils # 13.0 H (1.3-7.7) k/uL APTT 20.1 L (22.0-30.0) sec BUN (7-17) mg/dL Creatinine (0.52-1.04) mg/dL Glucose (74-99) mg/dL AST (14-36) U/L ALT (4-34) U/L Alkaline Phosphatase (38-126) U/L Urine Appearance Cloudy H (Clear) Urine Protein Trace H (Negative) Urine Blood Small H (Negative) Ur Leukocyte Esterase Large H (Negative) Urine RBC 6 H (0-5) /hpf Urine WBC 34 H (0-5) /hpf Urine Bacteria Rare H (None) /hpf Hyaline Casts 19 H (0-2) /lpf Urine Mucus Many H (None) /hpf 01/20/20 Range/Units 14:22 WBC (3.8-10.6) k/uL RBC (3.80-5.40) m/uL Hgb (11.4-16.0) gm/dL Hct (34.0-46.0) % RDW (11.5-15.5) % Plt Count (150-450) k/uL Neutrophils # (1.3-7.7) k/uL APTT (22.0-30.0) sec BUN 25 H (7-17) mg/dL Creatinine 1.19 H (0.52-1.04) mg/dL Glucose 111 H (74-99) mg/dL AST 137 H (14-36) U/L ALT 234 H (4-34) U/L Alkaline Phosphatase 205 H (38-126) U/L Urine Appearance (Clear) Urine Protein (Negative) Urine Blood (Negative) Ur Leukocyte Esterase (Negative) Urine RBC (0-5) /hpf Urine WBC (0-5) /hpf Urine Bacteria (None) /hpf Hyaline Casts (0-2) /lpf Urine Mucus (None) /hpf Microbiology - Last 24 Hours (Table) 01/20/20 14:22 Urine Culture - Preliminary Urine,Voided Diabetes panel 01/20/20 Range/Units 14:22 Sodium 137 (137-145) mmol/L Potassium 3.6 (3.5-5.1) mmol/L Chloride 103 (98-107) mmol/L Carbon Dioxide 29 (22-30) mmol/L BUN 25 H (7-17) mg/dL Creatinine 1.19 H (0.52-1.04) mg/dL Glucose 111 H (74-99) mg/dL Calcium 9.8 (8.4-10.2) mg/dL AST 137 H (14-36) U/L ALT 234 H (4-34) U/L Alkaline Phosphatase 205 H (38-126) U/L Total Protein 7.0 (6.3-8.2) g/dL Albumin 3.8 (3.5-5.0) g/dL Calcium panel 01/20/20 Range/Units 14:22 Calcium 9.8 (8.4-10.2) mg/dL Albumin 3.8 (3.5-5.0) g/dL Pituitary panel 01/20/20 Range/Units 14:22 Sodium 137 (137-145) mmol/L Potassium 3.6 (3.5-5.1) mmol/L Chloride 103 (98-107) mmol/L Carbon Dioxide 29 (22-30) mmol/L BUN 25 H (7-17) mg/dL Creatinine 1.19 H (0.52-1.04) mg/dL Glucose 111 H (74-99) mg/dL Calcium 9.8 (8.4-10.2) mg/dL Adrenal panel 01/20/20 Range/Units 14:22 Sodium 137 (137-145) mmol/L Potassium 3.6 (3.5-5.1) mmol/L Chloride 103 (98-107) mmol/L Carbon Dioxide 29 (22-30) mmol/L BUN 25 H (7-17) mg/dL Creatinine 1.19 H (0.52-1.04) mg/dL Glucose 111 H (74-99) mg/dL Calcium 9.8 (8.4-10.2) mg/dL Total Bilirubin 0.3 (0.2-1.3) mg/dL AST 137 H (14-36) U/L ALT 234 H (4-34) U/L Alkaline Phosphatase 205 H (38-126) U/L Total Protein 7.0 (6.3-8.2) g/dL Albumin 3.8 (3.5-5.0) g/dL Assessment and Plan Assessment: Acute cholecystitis Metastatic colon cancer with recent chemotherapy. Patient will receive IV antibiotic. We will try to treat her conservatively this point.
[2020-01-21] MEDS: PANTOPRAZOLE 40 MG/10 ML VIAL IVP SCH (12:26)
--- NOTE | 2020-01-21 14:03 | P.CONS ---
History of Present Illness - Reason for Consult Consult date: 01/21/20 Abdominal pain, liver enzyme elevation, colon cancer - History of Present Illness The patient is a 64-year-old white female with overall minor medical problems at baseline. She has a fairly complicated oncologic history as follows: On routine mammogram done on 06/23/17, the patient was noted to have 2 masses on the left, the first at anterior depth in the upper outer quadrant measuring 4 mm and the second also in the upper outer quadrant in the middle left measuring 5-6 L. Regional calcifications are also seen in the right upper central, slightly inner breast at 12:30-1 o'clock position. Additional confirmatory imaging was done on 06/26/17, revealing large area of pleomorphic calcification in the upper central right breast about 10.5 cm from the nipple, and multiple foci of pleomorphic microcalcifications in the upper central and outer breast on the left. Ultrasound was done on the same day, revealing a 0.3 x 0.4 x 0.4 cm cystic benign appearing lesion at 3:00 a 0.7 x 0.6 x 0.4 cm cystic benign lesion at 3:00 on the left. Right breast ultrasound showed a focal area of concern in the retro-areolar region. The patient had bilateral stereotactic core biopsy showing fibrocystic changes on the right, and focal atypical lobular hyperplasia on the left, on 07/16/17. She then proceeded to left breast biopsy with needle localization on 08/12/17. This revealed a low-grade DCIS, 7 mm by direct measurement, less than 1 mm from the inked margin. the tumor was strongly ER/CT positive. the patient was thus referred for further evaluation and recommendations. She denied any prior breast biopsies. Her last mammogram before this one had been several years before. We discussed having additional excision per protocol, or proceeding straight to RT , based on the small size and low risk profile. She ultimately decided on the latter. She completed RT on 10/30/17. She then started Tamoxifen. She had an elective colonoscopy on 12/18/17, revealing a partially obstructing lesion in the mid ascending colons, beyond which the scope could not be passed. The pathology was positive for adenoca. She had a rt hemicolectomy on 01/06/18 , revealing a 4 cm , grade II, T 3 tumor with 0/23/nodes positive. She had an Oncotype colon done, which revealed a score of 22, with a 14% chance of 3 year recurrence, and 5 % reduction with 5FU/LV, and an additional 2 % with 5FU/Oxali. After detailed discussion, she decided to take Xeloda. SHe started the same on 02/23/17. She had a prolonged hospitailzation after C 2, 03/26/18-04/16/18 for grade 4 SE of diarrhea, PPE and mucositis that developed after completion of her 2nd cycle of adjuvant xeloda (8 planned). Her SE were progressive during admit, she did require TPN briefly. 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 The pt was started back on Xeloda with 50% dose reduction , 1000 mg BID for 3 cycles. Dose was then increased to 1300 mg BID at her visit on 07/01/18. She completed 3cycles at this dose. She thus completed a total of 8 cycles, with the above, on 08/30/18. Based on the pattern of her side effects, she did not futher dose increase beyond the 1300 BID Colonoscopy in 01/04 revealed 2 polyps which were remioved, with 2 yr f/u recommended. She had a heel seam rubber exam with D & C in 10/04 for thickened uterine lining, which was negative. CT in 08/05 showed a new 5.2 cm ovarian mass on the left the patient was referred to [facility], Dr. Barakat at [facility]. She underwent resection with bilateral salpingo-oophorectomy and total abdominal hysterectomy laparoscopically on 09/01/19. Final pathology revealed the left ovarian mass to be consistent with colon primary. PET scan subsequently from 10/05 was negative for any residual uptake. She was PD-1 < 1% She was started on FOLFOX with 50% 5 FU dose reduction, on 10/26/19, and completed 4 cycles.Additional biomarker testing revealed MSI stable, KRAS wild type and BRAF V600E positive She was seen at [facility], and it was recommended to change her regimen to FOLFOXIRI + jack. She is status post 2 cycle of the same (total 6) completing her most recent treatment on 01/11/20. Labs in the office at follow-up on 01/05/20 showed new elevation of liver enzymes with 108 AST, 157 ALT. the patient was quite asymptomatic, with no increase in CEA. It was therefore decided to follow this with monitoring. The patient however developed new onset of right-sided abdominal pain radiating into the epigastrium around 01/17/20. She had a visit in the office on 01/18/20 at this time the pain was still manageable. She did report some nausea, and new onset diarrhea. She had a urinalysis done which was mildly suspicious but not definitive. She refused to go to the ER at that time. However her symptoms persisted and actually worsen over the next 2 days, she contacted the office again and was advised again to go to the ER on 01/20/20. She was agreeable to the same On presentation she had CT of the abdomen and pelvis as well as abdominal ultrasound on. The computed tomography scan was negative for any evidence of metastatic disease in the abdomen or pelvis. Interestingly he did not mention any significant abnormality in the gallbladder any gallstones. However ultrasound did show evidence of gallstones, and cholecystitis. Labs revealed increase in liver enzymes compared to 01/05/20, more prominent with ALT, as well as increase in alkaline phosphatase. She was admitted for further management. Review of Systems Constitutional: Reports fatigue Eyes: denies blurred vision, denies pain Ears: deny: decreased hearing, ear discharge, earache, tinnitus Ears, nose, mouth and throat: Denies headache, Denies sore throat Cardiovascular: Denies chest pain, Denies shortness of breath Respiratory: Denies cough Gastrointestinal: Reports abdominal pain, Reports diarrhea, Reports nausea, Reports vomiting Genitourinary: Denies dysuria, Denies hematuria Menstruation: Reports postmenopausal Musculoskeletal: Denies myalgias Integumentary: Denies pruritus, Denies rash Neurological: Denies numbness, Denies weakness Psychiatric: Denies anxiety, Denies depression Endocrine: Denies fatigue, Denies weight change Hematologic/Lymphatic: Reports as per HPI Past Medical History Past Medical History: Cancer, GERD/Reflux, Hypertension Additional Past Medical History / Comment(s): LT BREAST CANCER, colon cancer stage II History of Any Multi-Drug Resistant Organisms: None Reported Past Surgical History: No Surgical Hx Reported, Bowel Resection Additional Past Surgical History / Comment(s): LT BREAST LUMPECTOMY-RADIATION, Past Anesthesia/Blood Transfusion Reactions: No Reported Reaction Past Psychological History: No Psychological Hx Reported Past Alcohol Use History: Occasional Past Drug Use History: None Reported - Past Family History Mother Family Medical History: COPD, Dementia Father Family Medical History: AFIB, Cancer Additional Family Medical History / Comment(s): Lung cancer. Sister(s) Family Medical History: Cancer Additional Family Medical History / Comment(s): VOCAL CORD CANCER Medications and Allergies Home Medications Medication Instructions Recorded Confirmed Type Aspirin [Adult Low Dose Aspirin EC] 81 mg PO DAILY 07/10/17 01/20/20 History Cholecalciferol (Vitamin D3) 2,000 unit PO DAILY 07/10/17 01/20/20 History [Vitamin D3] Cyanocobalamin [Vitamin B-12] 500 mcg PO DAILY 07/10/17 01/20/20 History Multivitamins, Thera [Multivitamin 1 tab PO DAILY 07/10/17 01/20/20 History (formulary)] Tamoxifen Citrate 20 mg PO DAILY 12/16/17 01/20/20 History Calcium And Magnesium Oral Tab 1 tab PO DAILY 01/20/20 01/20/20 History (Unknown Strength) Cholestyramine (with Sugar) 4 gm PO BID 01/20/20 01/20/20 History [Cholestyramine Packet] Escitalopram Oxalate [Lexapro] 10 mg PO DAILY 01/20/20 01/20/20 History Ondansetron Odt [Zofran ODT] 4 mg PO Q4-6H PRN 01/20/20 01/20/20 History Thiamine [Vitamin B-1] 100 mg PO DAILY 01/20/20 01/20/20 History lisinopriL [Prinivil] 20 mg PO BID 01/20/20 01/20/20 History Allergies Allergy/AdvReac Type Severity Reaction Status Date / Time No Known Allergies Allergy Verified 12/29/18 09:22 Physical Exam Vitals: Vital Signs Temp Pulse Pulse Resp BP BP BP 01/21/20 07:58 98.1 F 76 16 126/75 01/21/20 03:20 98.4 F 92 18 117/63 01/20/20 22:38 81 18 01/20/20 21:32 98.7 F 81 18 116/76 01/20/20 19:11 82 18 01/20/20 17:58 98.2 F 82 18 142/77 01/20/20 17:52 79 18 122/71 01/20/20 16:45 98.6 F 75 18 154/83 01/20/20 13:23 98.4 F 107 H 16 101/65 Pulse Ox 01/21/20 07:58 97 01/21/20 03:20 99 01/20/20 22:38 01/20/20 21:32 98 01/20/20 19:11 01/20/20 17:58 100 01/20/20 17:52 98 01/20/20 16:45 97 01/20/20 13:23 97 Intake and Output 01/20/20 01/21/20 01/21/20 22:59 06:59 14:59 Other: Voiding Method Toilet Toilet # Voids 1 # Bowel Movements 3 Weight 78.018 kg - Constitutional General appearance: no acute distress - EENT Eyes: EOMI, PERRLA ENT: hearing grossly normal, normal oropharynx - Neck Neck: no lymphadenopathy Thyroid: bilateral: normal size - Respiratory Respiratory: bilateral: CTA - Cardiovascular Rhythm: regular Heart sounds: normal: S1, S2 - Gastrointestinal General gastrointestinal: normal bowel sounds, soft Localized gastrointestinal: tender: RUQ - Integumentary Integumentary: normal - Neurologic Neurologic: CNII-XII intact - Musculoskeletal Musculoskeletal: strength equal bilaterally - Psychiatric Psychiatric: A&O x's 3, appropriate affect Results CBC & Chem 7: 01/20/20 14:22 01/20/20 14:22 Labs: Abnormal Lab Results - Last 24 Hours (Table) 01/20/20 01/20/20 01/20/20 Range/Units 14:22 14:22 14:22 WBC 16.9 H (3.8-10.6) k/uL RBC 3.36 L (3.80-5.40) m/uL Hgb 11.1 L (11.4-16.0) gm/dL Hct 33.4 L (34.0-46.0) % RDW 16.7 H (11.5-15.5) % Plt Count 119 L (150-450) k/uL Neutrophils # 13.0 H (1.3-7.7) k/uL APTT 20.1 L (22.0-30.0) sec BUN (7-17) mg/dL Creatinine (0.52-1.04) mg/dL Glucose (74-99) mg/dL AST (14-36) U/L ALT (4-34) U/L Alkaline Phosphatase (38-126) U/L Urine Appearance Cloudy H (Clear) Urine Protein Trace H (Negative) Urine Blood Small H (Negative) Ur Leukocyte Esterase Large H (Negative) Urine RBC 6 H (0-5) /hpf Urine WBC 34 H (0-5) /hpf Urine Bacteria Rare H (None) /hpf Hyaline Casts 19 H (0-2) /lpf Urine Mucus Many H (None) /hpf 01/20/20 Range/Units 14:22 WBC (3.8-10.6) k/uL RBC (3.80-5.40) m/uL Hgb (11.4-16.0) gm/dL Hct (34.0-46.0) % RDW (11.5-15.5) % Plt Count (150-450) k/uL Neutrophils # (1.3-7.7) k/uL APTT (22.0-30.0) sec BUN 25 H (7-17) mg/dL Creatinine 1.19 H (0.52-1.04) mg/dL Glucose 111 H (74-99) mg/dL AST 137 H (14-36) U/L ALT 234 H (4-34) U/L Alkaline Phosphatase 205 H (38-126) U/L Urine Appearance (Clear) Urine Protein (Negative) Urine Blood (Negative) Ur Leukocyte Esterase (Negative) Urine RBC (0-5) /hpf Urine WBC (0-5) /hpf Urine Bacteria (None) /hpf Hyaline Casts (0-2) /lpf Urine Mucus (None) /hpf Microbiology - Last 24 Hours (Table) 01/20/20 14:22 Urine Culture - Preliminary Urine,Voided CT scan - abdomen: report reviewed CT scan - pelvis: report reviewed US - abdomen: report reviewed Assessment and Plan (1) Cholecystitis Narrative/Plan: This is a new onset, with no prior history of the same. The patient has been evaluated by Gen. surgery. At this time she has been started on antibiotics, and IV fluids with the plan for conservative management of possible - For you agree with the above plan. The patient is actively on chemotherapy, and Anti VEGF MoAb with her last dose about 10 days ago.. She will therefore be at increased risk of postoperative obligations including wound dehiscence, bleeding and healing issues, if she had surgery now. Ideally we would recommend at least a 3-4 week interval after the last dose of VEGF MoAb prior to any elective surgery. - Therefore, from the oncology standpoint, unless there is an emergency conservative management would certainly be most preferable. - The patient was advised that if this episode was able to be managed conservatively, but she had recurrence , then it would be reasonable to hold treatment for the required interval, and proceed to surgical management Current Visit: Yes Status: Acute Code(s): K81.9 - CHOLECYSTITIS, UNSPECIFIED SNOMED Code(s): 42573457 (2) Metastatic colon cancer in female Narrative/Plan: Diagnostic and therapeutic circumstances as above. Overall patient has been t olerating treatment well. She is close to her next cycle of chemotherapy next week. This will be placed on hold and delayed by at least 1 week. Follow counts while in hospital Current Visit: Yes Status: Acute Code(s): C18.9 - MALIGNANT NEOPLASM OF COLON, UNSPECIFIED SNOMED Code(s): 731565995 (3) History of breast cancer Narrative/Plan: No evidence of recurrence. Continue tamoxifen Current Visit: Yes Status: Acute Code(s): Z85.3 - PERSONAL HISTORY OF MALIGNANT NEOPLASM OF BREAST SNOMED Code(s): 967831722 Plan: DVT prophylaxis
[2020-01-22] MEDS: HYDROmorphone 0.5 MG/0.5 ML SYRINGE IVP PRN ×4 (02:20→23:52)
[2020-01-22 06:35] LABS: Anisocytosis Slight; HCT 25.6 % (34.0-46.0); MCHC 34.3 g/dL (31.0-37.0); MCV 102.1 fL (80.0-100.0); Macrocytosis Moderate; Mean Platelet Volume 9.5; RDW 16.3 % (11.5-15.5); WBC 12.4 k/uL (3.8-10.6)
[2020-01-22 06:36] LABS: HGB 8.8 gm/dL (11.4-16.0)
[2020-01-22 06:49] LABS: Albumin 2.6 g/dL (3.5-5.0); Calcium 8.2 mg/dL (8.4-10.2); Potassium 3.8 mmol/L (3.5-5.1); Total Bilirubin 0.2 mg/dL (0.2-1.3); Total Protein 5.2 g/dL (6.3-8.2)
[2020-01-22 06:54] LABS: Platelet Count 97 k/uL (150-450)
[2020-01-22] MEDS: lisinopriL 20 MG TAB PO SCH ×2 (09:12→22:30)
[2020-01-22] MEDS: ENOXAPARIN 40 MG/0.4 ML SYRINGE SQ SCH (09:12)
[2020-01-22] MEDS: ASPIRIN 81 MG PO SCH (09:13)
[2020-01-22] MEDS: PANTOPRAZOLE 40 MG/10 ML VIAL IVP SCH (09:13)
[2020-01-22] MEDS: TAMOXIFEN 10 MG TAB PO SCH (09:13)
[2020-01-22] MEDS: MULTIVITAMINS, THERA 1 EACH TAB PO SCH (09:13)
[2020-01-22] MEDS: CHOLECALCIFEROL 1,000 UNIT TAB PO SCH (09:13)
--- NOTE | 2020-01-22 10:14 | P.PN ---
Subjective Progress Note Date: 01/22/20 HISTORY OF PRESENT ILLNESS This is a 62-year-old female patient of Dr. Asif with past medical history of hypertension, left-sided breast cancer status post radiation therapy, colon cancer status post hemicolectomy in December 2017. Please see oncology note regarding history. Patient underwent a CAT scan in July of this year finding ovarian mass on the left side down at [facility] status post hysterectomy and bilateral salpingo-oophorectomy in August of this year. P athology confirmed: As primary site. Patient was started on FOLFOX and 5-FU initially and changed to FOLFOXIRI + jack. She is status post cycle 6 on 01/11/20. Patient complains of epigastric pain right upper and lower quadrant pain with right upper quadrant tenderness. She has had some decreased appetite with minimal weight loss. She's had a little nausea without vomiting. Her last bowel movement was small yesterday, no diarrhea. Patient states abdominal pain continued to worsen and on Thursday night she vomited all night as well as had diarrhea. 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 CAT scan of the abdomen and pelvis with contrast revealed left flank subcutaneous density. Postsurgical changes within the ascending colon region. No suspicious changes for metastatic disease. Possible mild ileus small bowel loops within the pelvis. Ultrasound of the gallbladder reveals gallstones, dilated gallbladder measures 5 cm in diameter. This could relate to cholecystitis. Bile ducts are not dilated. Patient was afebrile, heart rate currently 76, blood pressure 126/75, pulse ox 97% on room air. WBC 16.9, hemoglobin 1.1, platelet count 119. Electrolytes were normal. Renal function slightly elevated at BUN 25 and creatinine 1.19. Liver function tests elevated with AST 137, ALT 234, alkaline phosphatase 205. Urinalysis cloudy, blood small, leukoesterase large, WBCs 34, bacteria rare. Patient was given a dose of ceftriaxone, started on IV fluids and morphine for pain, Zofran for nausea and admitted to the observation unit. 01/21: [facility] waiting for an inpatient bed. She states her abdominal pain is about the same as yesterday and not better. Dilaudid seems to be helping. She denies having any diarrhea last bowel movement was last evening it was green but formed. Ceftriaxone will be changed to Zosyn. Patient is at increased risk for postop complications due to recent chemotherapy and oncology is recommended at least 3-4 week interval after the last dose of chemotherapy prior to any elective surgery. She is able to tolerate diet. Incentive spirometry will be added. Patient has been afebrile, heart rate 85, blood pressure 135/73, pulse ox 97% on room air. Repeat blood work reveals improvement of leukocytosis to 12.4, hemoglobin is 8.8, platelet count 97. Electrolytes unremarkable. Creatinine 0.85. Total bilirubin 0.2, AST 104, ALT 184, alkaline phosphatase 146. Urine culture finalized with skin duc. Blood cultures in progress. REVIEW OF SYSTEMS Constitutional: No fever, no chills, no night sweats. Minimal weight loss. No weakness, fatigue or lethargy. No daytime sleepiness. EENT: No headache. No blurred vision or double vision, no loss of vision. No loss of Hearing, no ringing in the ears, no dizziness. No nasal drainage or c ongestion. No epistaxis. No sore throat. Lungs: No shortness of breath, cough, no sputum production. No wheezing. Cardiovascular: No chest pain, no lower extremity edema. No palpitations. No paroxysmal nocturnal dyspnea. No orthopnea. No lightheadedness or dizziness. No syncopal episodes. Abdominal: Reports continued abdominal pain. Reports nausea, denies vomiting. Denies diarrhea. No constipation. No bloody or tarry stools reports loss of appetite. Genitourinary: No dysuria, increased frequency, urgency. No urinary retention. Musculoskeletal: No myalgias. No muscle weakness, no gait dysfunction, no frequent falls. No back pain. No neck pain. Integumentary: No wounds, no lesions. No rash or pruritus. No unusual bruising. No change in hair or nails. Neurologic: No aphasia. No facial droop. No change in mentation. No head injury. No headache. No paralysis. No paresthesia. Psychiatric: No depression. No anxiety. No mood swings. Endocrine: No abnormal blood sugars. PHYSICAL EXAMINATION Gen: This is a 64-year-old female. She is sitting up in bed and appears to be comfortable and in no acute distress. HEENT: Head is atraumatic, normocephalic. Pupils equal, round. Sclerae is anicteric. NECK: Supple. No JVD. No lymphadenopathy. No thyromegaly. LUNGS: Clear to auscultation. No wheezes or rhonchi. No intercostal retractions . HEART: Regular rate and rhythm. No murmur. ABDOMEN: Soft. Bowel sounds are present. No masses. Right upper quadrant tenderness present. EXTREMITIES: No pedal edema. No calf tenderness. Dorsalis pedis +2 bilaterally. NEUROLOGICAL: Patient is awake, alert and oriented x3. Cranial nerves 2 through 12 are grossly intact. ASSESSMENT AND PLAN 1. Acute right upper quadrant pain and elevated liver function tests, mostly secondary to acute cholecystitis. Consult with general surgery. Patient is adamant that Dr. Tang would perform surgery which would not be arranged for several weeks. Patient has discussed this with oncology already and patient will need to be off chemotherapy. Continue Zofran as needed for nausea, morphine as needed for pain. We will also add in [place] and Tylenol as patient's pain improves. Consult in place with general surgery. IV antibiotics with Zosyn. 2. Metastatic colon cancer status post hysterectomy and bilateral salpingo-oo phorectomy in August and currently undergoing chemotherapy. Consult with oncology appreciated. 3. History of colon cancer status post hemicolectomy in December [address] Kulkarni. 4. Nausea, vomiting, diarrhea secondary to chemotherapy. Consult with Dr. oncology. Continue IV fluids. Diarrhea seems to have resolved. 5. Acute urinary tract infection ruled out. Ceftriaxone discontinued. 6. Acute kidney injury. Baseline creatinine 0.5. Continue IV fluids. 7. Hypertension. Continue lisinopril 20 mg twice daily. 8. Thrombocytopenia secondary to chemotherapy. Monitor. 9. History of breast cancer status post lumpectomy and radiation. Continue tamoxifen. 10. DVT prophylaxis. Lovenox daily. 11. GI prophylaxis. Protonix. DISCHARGE PLAN Home. Impression and plan of care have been directed as dictated by the signing physician. Opal Moreno nurse practitioner acting as scribe for signing physician. Objective - Vital Signs Vital signs: Vital Signs Temp 98.5 F 01/22/20 09:00 Pulse 85 01/22/20 09:00 Resp 16 01/22/20 09:00 BP 135/73 01/22/20 09:00 Pulse Ox 97 01/22/20 09:00 Intake & Output 01/21/20 01/22/20 01/22/20 18:59 06:59 18:59 Intake Total 1950 Balance 1950 Intake: IV 1550 Sodium Chloride 0.9% 1, 1500 000 ml @ 75 mls/hr IV . [id number] [facility] Rx#:[id number] cefTRIAXone 1 gm In 50 Sodium Chloride 0.9% 50 ml @ 100 mls/hr IVPB Q24HR [facility] Rx#:[id number] Oral 400 Other: Voiding Method Toilet Toilet # Voids 1 2 - Labs CBC & Chem 7: 01/22/20 06:05 01/22/20 06:05 Labs: Abnormal Lab Results - Last 24 Hours (Table) 01/22/20 01/22/20 Range/Units 06:05 06:05 WBC 12.4 H (3.8-10.6) k/uL RBC 2.50 L (3.80-5.40) m/uL Hgb 8.8 L D (11.4-16.0) gm/dL Hct 25.6 L (34.0-46.0) % MCV 102.1 H (80.0-100.0) fL RDW 16.3 H (11.5-15.5) % Plt Count 97 L (150-450) k/uL Chloride 110 H (98-107) mmol/L Glucose 102 H (74-99) mg/dL Calcium 8.2 L (8.4-10.2) mg/dL AST 104 H (14-36) U/L ALT 184 H (4-34) U/L Alkaline Phosphatase 146 H (38-126) U/L Total Protein 5.2 L (6.3-8.2) g/dL Albumin 2.6 L (3.5-5.0) g/dL Microbiology - Last 24 Hours (Table) 01/20/20 14:22 Urine Culture - Final Urine,Voided 01/20/20 17:40 Blood Culture - Preliminary Blood No Growth after 24 hours
--- NOTE | 2020-01-22 10:57 | P.PN ---
Progress Note - Text Progress Note Date: 01/22/20 Patient still states she has some right upper quadrant pain. Has improved since yesterday. Her white count and liver function tests multiple improved. On exam vital signs are stable. Abdomen soft. There is mild tenderness right upper quadrant. Lithiasis with was incised. Patient he received IV antibiotics and conservative therapy for now.
[2020-01-22] MEDS: HYDROcodone/APAP 5-325MG 1 EACH TAB PO PRN ×3 (11:20→22:30)
[2020-01-22] MEDS: SODIUM CHLORIDE 0.9% 1,000 ML IV SCH ×2 (14:07→23:56)
[2020-01-22] MEDS: PIPERACILLIN-TAZOBACTAM 3.375 GM in SODIUM CHLORIDE 0.9% 100 ML IVPB SCH ×2 (14:07→22:30)
[2020-01-22] MEDS: ESCITALOPRAM 20 MG TAB PO SCH (22:30)
[2020-01-23] MEDS: PIPERACILLIN-TAZOBACTAM 3.375 GM in SODIUM CHLORIDE 0.9% 100 ML IVPB SCH ×3 (03:02→18:32)
[2020-01-23] MEDS: TAMOXIFEN 10 MG TAB PO SCH (08:27)
[2020-01-23] MEDS: ENOXAPARIN 40 MG/0.4 ML SYRINGE SQ SCH (08:27)
[2020-01-23] MEDS: MULTIVITAMINS, THERA 1 EACH TAB PO SCH (08:27)
[2020-01-23] MEDS: ASPIRIN 81 MG PO SCH (08:27)
[2020-01-23] MEDS: CHOLECALCIFEROL 1,000 UNIT TAB PO SCH (08:27)
[2020-01-23] MEDS: lisinopriL 20 MG TAB PO SCH ×2 (08:27→21:40)
[2020-01-23] MEDS: HYDROcodone/APAP 5-325MG 1 EACH TAB PO PRN ×3 (08:35→22:31)
[2020-01-23 09:34] LABS: Anisocytosis Slight; Basophils # (A) 0.1 k/uL (0-0.2); Basophils % (A) 1 %; Eosinophils # (A) 0.1 k/uL (0-0.7); Eosinophils % (A) 1 %; HCT 26.6 % (34.0-46.0); Lymphocytes # (A) 1.5 k/uL (1.0-4.8); Lymphocytes % (A) 16 %; MCH 35.2 pg (25.0-35.0); MCV 103.5 fL (80.0-100.0); Macrocytosis Moderate; Monocytes # (A) 0.4 k/uL (0-1.0); Monocytes % (A) 4 %; Neutrophils # (A) 7.4 k/uL (1.3-7.7); Neutrophils % (A) 77 %; Platelet Count 103 k/uL (150-450); RBC 2.57 m/uL (3.80-5.40); RDW 16.1 % (11.5-15.5); WBC 9.7 k/uL (3.8-10.6)
[2020-01-23 09:38] LABS: Albumin 2.8 g/dL (3.5-5.0); Calcium 8.4 mg/dL (8.4-10.2); Potassium 3.6 mmol/L (3.5-5.1); Total Bilirubin 0.3 mg/dL (0.2-1.3); Total Protein 5.4 g/dL (6.3-8.2)
[2020-01-23] MEDS: HYDROmorphone 0.5 MG/0.5 ML SYRINGE IVP PRN ×3 (09:47→21:40)
[2020-01-23] MEDS: PANTOPRAZOLE 40 MG TABLET PO SCH (09:47)
--- NOTE | 2020-01-23 11:12 | P.PN ---
<Chelsey Romero - Last Filed: 01/23/20 11:00> Subjective Progress Note Date: 01/23/20 CHIEF COMPLAINT: Right upper quadrant abdominal pain HISTORY OF PRESENT ILLNESS: Patient is being followed for acute cholecystitis. She is currently being treated conservatively. She has a known history of metastatic colon cancer and is status post hemicolectomy in December [address] Kulkarni. Also has history of left breast cancer status post radiation therapy and lumpectomy. Patient's chemotherapy currently on hold. Patient is still complaining of right upper quadrant abdominal pain. She is requiring IV pain medication. She is on IV antibiotics. She is on a low-fat diet. Denies any nausea or vomiting. She is having bowel movements. Afebrile. WBC has normalized to 9.7 hemoglobin 9.0 AST 103 ALT 161 and alk phos 164 total bili 0.3 Abdominal ultrasound from 01/20/2020 shows gallstones. Dilated gallbladder that measures 5 cm in diameter. Gallbladder wall thickened with pericholecystic fluid Today's repeat abdominal ultrasound pending PHYSICAL EXAM: VITAL SIGNS: Reviewed. GENERAL: Well-developed in no acute distress. HEENT: No sclera icterus. Extraocular movements grossly intact. Moist buccal mucosa. Head is atraumatic, normocephalic. ABDOMEN: Soft. Nondistended. Right upper quadrant tenderness with palpation NEUROLOGIC: Alert and oriented. Cranial nerves II through XII grossly intact. ASSESSMENT: 1. Acute cholecystitis 2. History of metastatic colon cancer status post right hemicolectomy in December [address] Kulkarni 3. History of left ovarian mass status post hysterectomy and bilateral salpingo-oophorectomy in August 2019 4. History of breast cancer status post radiation treatment and lumpectomy PLAN: -Continue IV antibiotics -Continue pain medication as needed -Continue IV fluids -Case discussed with Dr. James -Continue GI and DVT prophylaxis Physician Teacher Lip Reading note has been reviewed by physician. Signing provider agrees with the documented findings, assessment, and plan of care. Objective - Vital Signs Vital signs: Vital Signs Temp 98 F 01/23/20 09:00 Pulse 74 01/23/20 09:00 Resp 16 01/23/20 09:00 BP 159/76 01/23/20 09:00 Pulse Ox 98 01/23/20 09:00 Intake & Output 01/22/20 01/23/2001/22/20 18:59 06:59 18:59 Intake Total 600 Balance 600 Intake: Oral 600 Other: Voiding Method Toilet Toilet # Voids 2 1 - Labs CBC & Chem 7: 01/23/20 09:03 01/23/20 09:03 Labs: Abnormal Lab Results - Last 24 Hours (Table) 01/23/20 01/23/20 Range/Units 09:03 09:03 RBC 2.57 L (3.80-5.40) m/uL Hgb 9.0 L (11.4-16.0) gm/dL Hct 26.6 L (34.0-46.0) % MCV 103.5 H (80.0-100.0) fL MCH 35.2 H (25.0-35.0) pg RDW 16.1 H (11.5-15.5) % Plt Count 103 L (150-450) k/uL Chloride 113 H (98-107) mmol/L Glucose 134 H (74-99) mg/dL AST 103 H (14-36) U/L ALT 161 H (4-34) U/L Alkaline Phosphatase 164 H (38-126) U/L Total Protein 5.4 L (6.3-8.2) g/dL Albumin 2.8 L (3.5-5.0) g/dL Microbiology - Last 24 Hours (Table) 01/20/20 17:40 Blood Culture - Preliminary Blood No Growth after 48 hours <Markus Tang - Last Filed: 01/23/20 13:42> Subjective As above. Chart reviewed. Patient with recent chemotherapy for metastatic colon cancer. Continue IV antibiotics. Check ultrasound ordered for today. Will discuss further with oncology regarding appropriate timing of laparoscopic/possible open cholecystectomy. Objective - Vital Signs Vital signs: Vital Signs Temp 98 F 01/23/20 09:00 Pulse 74 01/23/20 09:00 Resp 16 01/23/20 09:00 BP 159/76 01/23/20 09:00 Pulse Ox 98 01/23/20 09:00 Intake & Output 01/22/20 01/23/20 01/23/20 18:59 06:59 18:59 Intake Total 600 Balance 600 Intake: Oral 600 Other: Voiding Method Toilet Toilet # Voids 2 1 - Labs CBC & Chem 7: 01/23/20 09:03 01/23/20 09:03 Labs: Abnormal Lab Results - Last 24 Hours (Table) 01/23/20 01/23/20 Range/Units 09:03 09:03 RBC 2.57 L (3.80-5.40) m/uL Hgb 9.0 L (11.4-16.0) gm/dL Hct 26.6 L (34.0-46.0) % MCV 103.5 H (80.0-100.0) fL MCH 35.2 H (25.0-35.0) pg RDW 16.1 H (11.5-15.5) % Plt Count 103 L (150-450) k/uL Chloride 113 H (98-107) mmol/L Glucose 134 H (74-99) mg/dL AST 103 H (14-36) U/L ALT 161 H (4-34) U/L Alkaline Phosphatase 164 H (38-126) U/L Total Protein 5.4 L (6.3-8.2) g/dL Albumin 2.8 L (3.5-5.0) g/dL Microbiology - Last 24 Hours (Table) 01/20/20 17:40 Blood Culture - Preliminary Blood No Growth after 48 hours
--- NOTE | 2020-01-23 11:36 | P.PN ---
Subjective Progress Note Date: 01/23/20 Principal diagnosis: Cholecystitis She still complains of pain, although controlled on [place]. She is now a week out of treatment of her anti-angiogenesis. Therefore, we can plan to continue holding treatment for her known metastatic cancer and plan outpatient surgical intervention in 1-2 weeks. Objective - Vital Signs Vital signs: Vital Signs Temp 98 F 01/23/20 09:00 Pulse 74 01/23/20 09:00 Resp 16 01/23/20 09:00 BP 159/76 01/23/20 09:00 Pulse Ox 98 01/23/20 09:00 Intake & Output 01/22/20 01/23/20 01/23/20 18:59 06:59 18:59 Intake Total 600 Balance 600 Intake: Oral 600 Other: Voiding Method Toilet Toilet # Voids 2 1 - Exam - Constitutional General appearance: no acute distress - EENT Eyes: EOMI, PERRLA ENT: hearing grossly normal, normal oropharynx - Neck Neck: no lymphadenopathy Thyroid: bilateral: normal size - Respiratory Respiratory: bilateral: CTA - Cardiovascular Rhythm: regular Heart sounds: normal: S1, S2 - Gastrointestinal General gastrointestinal: normal bowel sounds, soft Localized gastrointestinal: tender: RUQ - Integumentary Integumentary: normal - Neurologic Neurologic: CNII-XII intact - Musculoskeletal Musculoskeletal: strength equal bilaterally - Psychiatric Psychiatric: A&O x's 3, appropriate affect - Labs CBC & Chem 7: 01/23/20 09:03 01/23/20 09:03 Labs: Abnormal Lab Results - Last 24 Hours (Table) 01/23/20 01/23/20 Range/Units 09:03 09:03 RBC 2.57 L (3.80-5.40) m/uL Hgb 9.0 L (11.4-16.0) gm/dL Hct 26.6 L (34.0-46.0) % MCV 103.5 H (80.0-100.0) fL MCH 35.2 H (25.0-35.0) pg RDW 16.1 H (11.5-15.5) % Plt Count 103 L (150-450) k/uL Chloride 113 H (98-107) mmol/L Glucose 134 H (74-99) mg/dL AST 103 H (14-36) U/L ALT 161 H (4-34) U/L Alkaline Phosphatase 164 H (38-126) U/L Total Protein 5.4 L (6.3-8.2) g/dL Albumin 2.8 L (3.5-5.0) g/dL Microbiology - Last 24 Hours (Table) 01/20/20 17:40 Blood Culture - Preliminary Blood No Growth after 48 hours Assessment and Plan (1) Metastatic colon cancer in female Current Visit: Yes Status: Acute Code(s): C18.9 - MALIGNANT NEOPLASM OF COLON, UNSPECIFIED SNOMED Code(s): 956475902 (2) History of breast cancer Current Visit: Yes Status: Acute Code(s): Z85.3 - PERSONAL HISTORY OF MALIGNANT NEOPLASM OF BREAST SNOMED Code(s): 120004388 (3) RUKHSANA (acute kidney injury) Current Visit: Yes Status: Acute Code(s): N17.9 - ACUTE KIDNEY FAILURE, UNSPECIFIED SNOMED Code(s): 46789488 (4) Cholecystitis Current Visit: Yes Status: Acute Code(s): K81.9 - CHOLECYSTITIS, UNSPECIFIED SNOMED Code(s): 85551122 (5) Right upper quadrant abdominal pain Current Visit: Yes Status: Acute Code(s): R10.11 - RIGHT UPPER QUADRANT PAIN SNOMED Code(s): 277450075 (6) UTI (urinary tract infection) Current Visit: Yes Status: Acute Code(s): N39.0 - URINARY TRACT INFECTION, SITE NOT SPECIFIED SNOMED Code(s): 84165734 Plan: Patient is on anti-angiogenesis and surgical intervention is NOT recommended unless absolutely emergent at this time as delayed wound healing is high risk with Zirabev. - If surgical intervention is needed and safe to hold off 2-3 weeks with conservative treatment of abx and pain medication this would be in best interest. If emergent surgical intervention needed, patient and family adamant to have choice surgeon as Dr. Tang. They understand if emergent this may not be possible, although will pass along info. Also very close monitoring of wound healing - Continue Treatment for UTI - Will hold anti-angiogenesis in anticipation of possible eventual surgical intervention, plan to schedule outpatient with Dr. Tang in 1-2 weeks. In the interim will continue supportive care of symptoms. Physician Attest: I have completed the full history and physical and agree with above dictation, dictated as a ascribe.
--- NOTE | 2020-01-23 13:07 | P.PN ---
Subjective Progress Note Date: 01/23/20 HISTORY OF PRESENT ILLNESS This is a 62-year-old female patient of Dr. Asif with past medical history of hypertension, left-sided breast cancer status post radiation therapy, colon cancer status post hemicolectomy in December 2017. Please see oncology note regarding history. Patient underwent a CAT scan in July of this year finding ovarian mass on the left side down at [facility] status post hysterectomy and bilateral salpingo-oophorectomy in August of this year. P athology confirmed: As primary site. Patient was started on FOLFOX and 5-FU initially and changed to FOLFOXIRI + jack. She is status post cycle 6 on 01/11/20. Patient complains of epigastric pain right upper and lower quadrant pain with right upper quadrant tenderness. She has had some decreased appetite with minimal weight loss. She's had a little nausea without vomiting. Her last bowel movement was small yesterday, no diarrhea. Patient states abdominal pain continued to worsen and on Thursday night she vomited all night as well as had diarrhea. 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 CAT scan of the abdomen and pelvis with contrast revealed left flank subcutaneous density. Postsurgical changes within the ascending colon region. No suspicious changes for metastatic disease. Possible mild ileus small bowel loops within the pelvis. Ultrasound of the gallbladder reveals gallstones, dilated gallbladder measures 5 cm in diameter. This could relate to cholecystitis. Bile ducts are not dilated. Patient was afebrile, heart rate currently 76, blood pressure 126/75, pulse ox 97% on room air. WBC 16.9, hemoglobin 1.1, platelet count 119. Electrolytes were normal. Renal function slightly elevated at BUN 25 and creatinine 1.19. Liver function tests elevated with AST 137, ALT 234, alkaline phosphatase 205. Urinalysis cloudy, blood small, leukoesterase large, WBCs 34, bacteria rare. Patient was given a dose of ceftriaxone, started on IV fluids and morphine for pain, Zofran for nausea and admitted to the observation unit. 01/21: [facility] waiting for an inpatient bed. She states her abdominal pain is about the same as yesterday and not better. Dilaudid seems to be helping. She denies having any diarrhea last bowel movement was last evening it was green but formed. Ceftriaxone will be changed to Zosyn. Patient is at increased risk for postop complications due to recent chemotherapy and oncology is recommended at least 3-4 week interval after the last dose of chemotherapy prior to any elective surgery. She is able to tolerate diet. Incentive spirometry will be added. Patient has been afebrile, heart rate 85, blood pressure 135/73, pulse ox 97% on room air. Repeat blood work reveals improvement of leukocytosis to 12.4, hemoglobin is 8.8, platelet count 97. Electrolytes unremarkable. Creatinine 0.85. Total bilirubin 0.2, AST 104, ALT 184, alkaline phosphatase 146. Urine culture finalized with skin duc. Blood cultures in progress. 01/22: Patient continues to have abdominal pain, able to tolerate food. Discussed with Dr. James patient's bedside and plan to reevaluate gallbladder with ultrasound. Surgeon will be changed to Dr. Tang. Repeat blood work reveals WBC 9.7, hemoglobin 9.0, platelet count 103. Other joints unremarkable, creatinine 0.86. Total bilirubin 0.3, AST 103, ALT 161, alkaline phosphatase 164. REVIEW OF SYSTEMS Constitutional: No fever, no chills, no night sweats. Minimal weight loss. No weakness, fatigue or lethargy. No daytime sleepiness. EENT: No headache. No blurred vision or double vision, no loss of vision. No loss of Hearing, no ringing in the ears, no dizziness. No nasal drainage or congestion. No epistaxis. No sore throat. Lungs: No shortness of breath, cough, no sputum production. No wheezing. Cardiovascular: No chest pain, no lower extremity edema. No palpitations. No paroxysmal nocturnal dyspnea. No orthopnea. No lightheadedness or dizziness. No syncopal episodes. Abdominal: Reports continued abdominal pain. Reports nausea, denies vomiting. Denies diarrhea. No constipation. No bloody or tarry stools reports loss of appetite. Genitourinary: No dysuria, increased frequency, urgency. No urinary retention. Musculoskeletal: No myalgias. No muscle weakness, no gait dysfunction, no frequent falls. No back pain. No neck pain. Integumentary: No wounds, no lesions. No rash or pruritus. No unusual bruising. No change in hair or nails. Neurologic: No aphasia. No facial droop. No change in mentation. No head injury. No headache. No paralysis. No paresthesia. Psychiatric: No depression. No anxiety. No mood swings. Endocrine: No abnormal blood sugars. PHYSICAL EXAMINATION Gen: This is a 64-year-old female. She is sitting up in bed and appears to be comfortable and in no acute distress. HEENT: Head is atraumatic, normocephalic. Pupils equal, round. Sclerae is anicteric. NECK: Supple. No JVD. No lymphadenopathy. No thyromegaly. LUNGS: Clear to auscultation. No wheezes or rhonchi. No intercostal retractions. HEART: Regular rate and rhythm. No murmur. ABDOMEN: Soft. Bowel sounds are present. No masses. Right upper quadrant tenderness. EXTREMITIES: No pedal edema. No calf tenderness. Dorsalis pedis +2 bilateral ly. NEUROLOGICAL: Patient is awake, alert and oriented x3. Cranial nerves 2 through 12 are grossly intact. ASSESSMENT AND PLAN 1. Acute right upper quadrant pain and elevated liver function tests, mostly secondary to acute cholecystitis. Consult with general surgery. Patient is adamant that Dr. Tang would perform surgery which would not be arranged for several weeks. Patient has discussed this with oncology already and patient will need to be off chemotherapy. Continue Zofran as needed for nausea, morphine as needed for pain. We will also add in [place] and Tylenol as patient's pain improves. Consult in place with general surgery. IV antibiotics with Zosyn. Repeat gallbladder ultrasound. 2. Metastatic colon cancer status post hysterectomy and bilateral salpingo- oophorectomy in August and currently undergoing chemotherapy. Consult with oncology appreciated. 3. History of colon cancer status post hemicolectomy in December [address] Kulkarni. 4. Nausea, vomiting, diarrhea secondary to chemotherapy. Consult with Dr. oncology. Continue IV fluids. Diarrhea seems to have resolved. 5. Acute urinary tract infection ruled out. Ceftriaxone discontinued. 6. Acute kidney injury. Baseline creatinine 0.5. Continue IV fluids. 7. Hypertension. Continue lisinopril 20 mg twice daily. 8. Thrombocytopenia secondary to chemotherapy. Monitor. 9. History of breast cancer status post lumpectomy and radiation. Continue tamoxifen. 10. DVT prophylaxis. Lovenox daily. 11. GI prophylaxis. Protonix. DISCHARGE PLAN Home. Impression and plan of care have been directed as dictated by the signing physician. Opal Moreno nurse practitioner acting as scribe for signing physician. Objective - Vital Signs Vital signs: Vital Signs Temp 98 F 01/23/20 09:00 Pulse 74 01/23/20 09:00 Resp 16 01/23/20 09:00 BP 159/76 01/23/20 09:00 Pulse Ox 98 01/23/20 09:00 Intake & Output 01/22/20 01/23/20 01/23/20 18:59 06:59 18:59 Intake Total 600 Balance 600 Intake: Oral 600 Other: Voiding Method Toilet Toilet # Voids 2 1 - Labs CBC & Chem 7: 01/23/20 09:03 01/23/20 09:03 Labs: Microbiology - Last 24 Hours (Table) 01/20/20 17:40 Blood Culture - Preliminary Blood No Growth after 48 hours
--- NOTE | 2020-01-23 14:15 | US ---
EXAMINATION TYPE: US abdomen limited DATE OF EXAM: 01/23/2020 COMPARISON: Ultrasound and CT 01/20/2020. CLINICAL HISTORY: 64-year-old female cholecystitis. Patient on chemotherapy for ovarian CA with colon involvement. TECHNIQUE: Multiple sonographic images of the right upper quadrant are obtained. FINDINGS: EXAM MEASUREMENTS: Liver Length: 13.1 cm Gallbladder Wall: 0.2 cm CBD: 0.86 cm Right Kidney: 9.4 x 5.2 x 4.3 cm Pancreas: No gross anomaly. Liver: Overall homogeneous appearance. No focal lesion seen. Gallbladder: multiple, mobile shadowing stones seen with largest = 1.3 x 1.2 x 0.5cm; sludge seen in fundus. Gallbladder is borderline hydropic measuring 9.6 x 4.1 cm. No wall thickening or surrounding fluid seen. Evidence for sonographic Tijerina's sign: no CBD: 8.6 mm, dilated versus 6 mm previously. Right Kidney: No hydronephrosis or masses seen IMPRESSION: 1. Bile duct caliber appears increased at 8.6 mm versus 6 mm, previously. Correlate with alkaline marquise sphatase and bilirubin levels to exclude early biliary obstruction. 2. Cholelithiasis and borderline hydropic change of the gallbladder. No radha wall thickening or surr ounding fluid. Sonographic Tijerina sign is also reported absent. If persistent concern, consider HIDA scan.
[2020-01-23] MEDS: SODIUM CHLORIDE 0.9% 1,000 ML IV SCH (16:58)
[2020-01-23] MEDS: ESCITALOPRAM 20 MG TAB PO SCH (21:42)
[2020-01-24] MEDS: HYDROmorphone 0.5 MG/0.5 ML SYRINGE IVP PRN ×5 (00:58→21:06)
[2020-01-24] MEDS: HYDROcodone/APAP 5-325MG 1 EACH TAB PO PRN ×2 (02:13→09:40)
[2020-01-24] MEDS: PIPERACILLIN-TAZOBACTAM 3.375 GM in SODIUM CHLORIDE 0.9% 100 ML IVPB SCH ×3 (02:14→17:30)
[2020-01-24] MEDS: SODIUM CHLORIDE 0.9% 1,000 ML IV SCH ×2 (02:19→15:31)
[2020-01-24] MEDS: PANTOPRAZOLE 40 MG TABLET PO SCH (07:01)
[2020-01-24] MEDS: ENOXAPARIN 40 MG/0.4 ML SYRINGE SQ SCH (08:00)
[2020-01-24] MEDS: ASPIRIN 81 MG PO SCH (08:00)
[2020-01-24] MEDS: lisinopriL 20 MG TAB PO SCH ×2 (08:00→21:06)
[2020-01-24] MEDS: MULTIVITAMINS, THERA 1 EACH TAB PO SCH (08:00)
[2020-01-24] MEDS: CHOLECALCIFEROL 1,000 UNIT TAB PO SCH (08:00)
[2020-01-24] MEDS: TAMOXIFEN 10 MG TAB PO SCH (08:01)
--- NOTE | 2020-01-24 10:22 | P.PN ---
<NickChelsey - Last Filed: 01/24/20 10:16> Subjective Progress Note Date: 01/24/20 CHIEF COMPLAINT: Right upper quadrant abdominal pain HISTORY OF PRESENT ILLNESS: Patient is being followed for acute cholecystitis. Patient is still complaining of right upper quadrant abdominal pain. She is requiring pain medication. Patient reports she cannot go without the pain medication. She is on IV antibiotics. She is on a low-fat diet. Denies any nausea or vomiting. She is having bowel movements. Abdominal ultrasound shows bile ducts caliber appears increased at 8.6 mm versus 6 mm previously. Cholelithiasis and borderline hydropic change of the gallbladder. No radha wall thickening or surrounding fluid. Tijerina sign absent. PHYSICAL EXAM: VITAL SIGNS: Reviewed. GENERAL: Well-developed in no acute distress. HEENT: No sclera icterus. Extraocular movements grossly intact. Moist buccal mucosa. Head is atraumatic, normocephalic. ABDOMEN: Soft. Nondistended. Right upper quadrant tenderness with palpation NEUROLOGIC: Alert and oriented. Cranial nerves II through XII grossly intact. ASSESSMENT: 1. Acute cholecystitis 2. History of metastatic colon cancer status post right hemicolectomy in Dec with Dr. Kulkarni. Chemotherapy currently on hold 3. History of left ovarian mass status post hysterectomy and bilateral salpingo-oophorectomy in August 2019 4. History of breast cancer status post radiation treatment and lumpectomy PLAN: -MRCP ordered for today -Continue IV antibiotics -Continue pain medication as needed -Dr. Tang to discuss further with oncology regarding appropriate time of laparoscopic/possible open cholecystectomy -Continue GI and DVT prophylaxis Physician Dredge Lever Operator note has been reviewed by physician. Signing provider agrees with the documented findings, assessment, and plan of care. Objective - Vital Signs Vital signs: Vital Signs Temp 97.9 F 01/24/20 02:10 Pulse 67 01/24/20 02:10 Resp 16 01/24/20 02:10 BP 150/71 01/24/20 02:10 Pulse Ox 97 01/24/20 02:10 Intake & Output 01/23/20 01/24/20 01/24/20 18:59 06:59 18:59 Output Total 1000 Balance -1000 Output: Urine 1000 Other: Voiding Method Toilet Toilet # Voids 3 - Labs CBC & Chem 7: 01/23/20 09:03 01/23/20 09:03 Labs: Microbiology - Last 24 Hours (Table) 01/20/20 17:40 Blood Culture - Preliminary Blood No Growth after 72 hours <IvettMarkus sanchez - Last Filed: 01/24/20 18:35> Subjective As above. Ultrasound showed increased biliary distention. For that reason MRI was ordered. 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 Patient otherwise feels somewhat better than yesterday. She believes that she probably could tolerate this pain at home on oral pain medications if cleared. We'll recheck labs tomorrow. She is tentatively scheduled for next at 1 PM to have laparoscopic cholecystectomy. We'll reevaluate in a.m. Continue antibiotics. Objective - Vital Signs Vital signs: Vital Signs Temp 98.0 F 01/24/20 15:15 Pulse 70 01/24/20 15:15 Resp 16 01/24/20 15:15 BP 159/77 01/24/20 17:32 Pulse Ox 97 01/24/20 15:15 Intake & Output 01/23/20 01/24/20 01/24/20 18:59 06:59 18:59 Intake Total 600 Output Total 1000 Balance -1000 600 Intake: Oral 600 Output: Urine 1000 Other: Voiding Method Toilet Toilet Toilet # Voids 3 3 - Labs CBC & Chem 7: 01/24/20 10:41 01/24/20 10:41 Labs: Abnormal Lab Results - Last 24 Hours (Table) 01/24/20 01/24/20 Range/Units 10:41 10:41 WBC 12.7 H (3.8-10.6) k/uL RBC 2.56 L (3.80-5.40) m/uL Hgb 8.7 L (11.4-16.0) gm/dL Hct 26.4 L (34.0-46.0) % MCV 103.4 H (80.0-100.0) fL RDW 16.9 H (11.5-15.5) % Plt Count 128 L (150-450) k/uL Neutrophils # 10.3 H (1.3-7.7) k/uL Chloride 110 H (98-107) mmol/L Glucose 105 H (74-99) mg/dL Calcium 8.3 L (8.4-10.2) mg/dL AST 113 H (14-36) U/L ALT 178 H (4-34) U/L Alkaline Phosphatase 168 H (38-126) U/L Total Protein 5.4 L (6.3-8.2) g/dL Albumin 2.8 L (3.5-5.0) g/dL Microbiology - Last 24 Hours (Table) 01/20/20 17:40 Blood Culture - Preliminary Blood No Growth after 72 hours
--- NOTE | 2020-01-24 10:52 | P.PN ---
Subjective Progress Note Date: 01/24/20 HISTORY OF PRESENT ILLNESS This is a 62-year-old female patient of Dr. Asif with past medical history of hypertension, left-sided breast cancer status post radiation therapy, colon cancer status post hemicolectomy in December 2017. Please see oncology note regarding history. Patient underwent a CAT scan in July of this year finding ovarian mass on the left side down at [facility] status post hysterectomy and bilateral salpingo-oophorectomy in August of this year. P athology confirmed: As primary site. Patient was started on FOLFOX and 5-FU initially and changed to FOLFOXIRI + jack. She is status post cycle 6 on 01/11/20. Patient complains of epigastric pain right upper and lower quadrant pain with right upper quadrant tenderness. She has had some decreased appetite with minimal weight loss. She's had a little nausea without vomiting. Her last bowel movement was small yesterday, no diarrhea. Patient states abdominal pain continued to worsen and on Thursday night she vomited all night as well as had diarrhea. She was in contact with her oncology BOW MACHINE OPERATOR and was advised come in the hospital for further evaluation and treatment. CAT scan of the abdomen and pelvis with contrast revealed left flank subcutaneous density. Postsurgical changes within the ascending colon region. No suspicious changes for metastatic disease. Possible mild ileus small bowel loops within the pelvis. Ultrasound of the gallbladder reveals gallstones, dilated gallbladder measures 5 cm in diameter. This could relate to cholecystitis. Bile ducts are not dilated. Patient was afebrile, heart rate currently 76, blood pressure 126/75, pulse ox 97% on room air. WBC 16.9, hemoglobin 1.1, platelet count 119. Electrolytes were normal. Renal function slightly elevated at BUN 25 and creatinine 1.19. Liver function tests elevated with AST 137, ALT 234, alkaline phosphatase 205. Urinalysis cloudy, blood small, leukoesterase large, WBCs 34, bacteria rare. Patient was given a dose of ceftriaxone, started on IV fluids and morphine for pain, Zofran for nausea and admitted to the observation unit. 01/21: [facility] waiting for an inpatient bed. She states her abdominal pain is about the same as yesterday and not better. Dilaudid seems to be helping. She denies having any diarrhea last bowel movement was last evening it was green but formed. Ceftriaxone will be changed to Zosyn. Patient is at increased risk for postop complications due to recent chemotherapy and oncology is recommended at least 3-4 week interval after the last dose of chemotherapy prior to any elective surgery. She is able to tolerate diet. Incentive spirometry will be added. Patient has been afebrile, heart rate 85, blood pressure 135/73, pulse ox 97% on room air. Repeat blood work reveals improvement of leukocytosis to 12.4, hemoglobin is 8.8, platelet count 97. Electrolytes unremarkable. Creatinine 0.85. Total bilirubin 0.2, AST 104, ALT 184, alkaline phosphatase 146. Urine culture finalized with skin duc. Blood cultures in progress. 01/22: Patient continues to have abdominal pain, able to tolerate food. Discussed with Dr. James patient's bedside and plan to reevaluate gallbladder with ultrasound. Surgeon will be changed to Dr. Tang. Repeat blood work reveals WBC 9.7, hemoglobin 9.0, platelet count 103. Other joints unremarkable, creatinine 0.86. Total bilirubin 0.3, AST 103, ALT 161, alkaline phosphatase 164. 01/23: [facility] continues to have significant abdominal pain. She tried to back off on pain medication yesterday and it became uncontrolled. She was able to easily little bit of food. Dr. James in Dr. Tang will discuss option of surgery since patient is not receiving any relief from pain. Ultrasound of the abdomen was repeated yesterday which revealed bile duct caliber appears increased at 8.6 mm versus 6 mm previously. Correlate with alkaline phosphatase and bilirubin levels to exclude early biliary obstruction. Cholelithiasis and borderline hypertrophic change of the gallbladder. No radha wall thickening or surrounding fluid. No Tijerina sign. She has been afebrile, heart rate 77, blood pressure 155/79, pulse ox 94% on room air. REVIEW OF SYSTEMS Constitutional: No fever, no chills, no night sweats. Minimal weight loss. No weakness, fatigue or lethargy. No daytime sleepiness. EENT: No headache. No blurred vision or double vision, no loss of vision. No loss of Hearing, no ringing in the ears, no dizziness. No nasal drainage or congestion. No epistaxis. No sore throat. Lungs: No shortness of breath, cough, no sputum production. No wheezing. Cardiovascular: No chest pain, no lower extremity edema. No palpitations. No orthopnea. No lightheadedness or dizziness. No syncopal episodes. Abdominal: Reports continued abdominal pain. Reports nausea, denies vomiting. Denies diarrhea. No constipation. No bloody or tarry stools reports loss of appetite. Genitourinary: No dysuria, increased frequency, urgency. No urinary retention. Musculoskeletal: No myalgias. No muscle weakness, no gait dysfunction, no frequent falls. No back pain. No neck pain. Integumentary: No wounds, no lesions. No rash or pruritus. No unusual bruising. No change in hair or nails. Neurologic: No aphasia. No facial droop. No change in mentation. No head injury. No headache. No paralysis. No paresthesia. Psychiatric: No depression. No anxiety. No mood swings. Endocrine: No abnormal blood sugars. PHYSICAL EXAMINATION Gen: This is a 64-year-old female. She is sitting up in bed and appears to be comfortable and in no acute distress. HEENT: Head is atraumatic, normocephalic. Pupils equal, round. Sclerae is anicteric. NECK: Supple. No JVD. No lymphadenopathy. No thyromegaly. LUNGS: Clear to auscultation. No wheezes or rhonchi. No intercostal retractions. HEART: Regular rate and rhythm. No murmur. ABDOMEN: Soft. Bowel sounds are present. Right upper quadrant tenderness. EXTREMITIES: No pedal edema. No calf tenderness. Dorsalis pedis +2 bilaterall y. NEUROLOGICAL: Patient is awake, alert and oriented x3. Cranial nerves 2 through 12 are grossly intact. ASSESSMENT AND PLAN 1. Acute right upper quadrant pain and elevated liver function tests, mostly secondary to acute cholecystitis. Oncology and general surgery to discuss surgery options. Continue Zofran as needed for nausea, morphine as needed for pain. We will also add in [place] and Tylenol as patient's pain improves. IV antibiotics with Zosyn. Repeat gallbladder ultrasound as above. 2. Metastatic colon cancer status post hysterectomy and bilateral salpingo- oophorectomy in August and currently undergoing chemotherapy. Consult with oncology appreciated. 3. History of colon cancer status post hemicolectomy in December [address] Kulkarni. 4. Nausea, vomiting, diarrhea secondary to chemotherapy. Consult with Dr. oncology. Continue IV fluids. Diarrhea seems to have resolved. 5. Acute urinary tract infection ruled out. Ceftriaxone discontinued. 6. Acute kidney injury. Baseline creatinine 0.5. Continue IV fluids. 7. Hypertension. Continue lisinopril 20 mg twice daily. 8. Thrombocytopenia secondary to chemotherapy. Monitor. 9. History of breast cancer status post lumpectomy and radiation. Continue tamoxifen. 10. DVT prophylaxis. Lovenox daily. 11. GI prophylaxis. Protonix. DISCHARGE PLAN Home. Impression and plan of care have been directed as dictated by the signing physician. Opal Moreno nurse practitioner acting as scribe for signing physician. Objective - Vital Signs Vital signs: Vital Signs Temp 97.9 F 01/24/20 02:10 Pulse 67 01/24/20 02:10 Resp 16 01/24/20 02:10 BP 150/71 01/24/20 02:10 Pulse Ox 97 01/24/20 02:10 Intake & Output 01/23/20 01/24/20 01/24/20 18:59 06:59 18:59 Output Total 1000 Balance -1000 Output: Urine 1000 Other: Voiding Method Toilet Toilet # Voids 3 - Labs CBC & Chem 7: 01/23/20 09:03 01/23/20 09:03 Labs: Abnormal Lab Results - Last 24 Hours (Table) 01/23/20 01/23/20 Range/Units 09:03 09:03 RBC 2.57 L (3.80-5.40) m/uL Hgb 9.0 L (11.4-16.0) gm/dL Hct 26.6 L (34.0-46.0) % MCV 103.5 H (80.0-100.0) fL MCH 35.2 H (25.0-35.0) pg RDW 16.1 H (11.5-15.5) % Plt Count 103 L (150-450) k/uL Chloride 113 H (98-107) mmol/L Glucose 134 H (74-99) mg/dL AST 103 H (14-36) U/L ALT 161 H (4-34) U/L Alkaline Phosphatase 164 H (38-126) U/L Total Protein 5.4 L (6.3-8.2) g/dL Albumin 2.8 L (3.5-5.0) g/dL Microbiology - Last 24 Hours (Table) 01/20/20 17:40 Blood Culture - Preliminary Blood No Growth after 72 hours
[2020-01-24 11:10] LABS: Anisocytosis Slight; Basophils # (A) 0.1 k/uL (0-0.2); Basophils % (A) 0 %; Eosinophils # (A) 0.1 k/uL (0-0.7); Eosinophils % (A) 1 %; HCT 26.4 % (34.0-46.0); HGB 8.7 gm/dL (11.4-16.0); Lymphocytes # (A) 1.6 k/uL (1.0-4.8); Lymphocytes % (A) 13 %; MCH 33.9 pg (25.0-35.0); MCHC 32.8 g/dL (31.0-37.0); MCV 103.4 fL (80.0-100.0); Macrocytosis Moderate; Mean Platelet Volume 9.6; Monocytes # (A) 0.4 k/uL (0-1.0); Monocytes % (A) 3 %; Neutrophils # (A) 10.3 k/uL (1.3-7.7); Neutrophils % (A) 81 %; Platelet Count 128 k/uL (150-450); RBC 2.56 m/uL (3.80-5.40); RDW 16.9 % (11.5-15.5); WBC 12.7 k/uL (3.8-10.6)
[2020-01-24 11:21] LABS: ALT 178 U/L (4-34); AST 113 U/L (14-36); African American GFR (CKD) >90 (>60 ml/min/1.73 sqM); Albumin 2.8 g/dL (3.5-5.0); Alkaline Phosphatase 168 U/L (38-126); Anion Gap 3 mmol/L; Blood Urea Nitrogen 9 mg/dL (7-17); Calcium 8.3 mg/dL (8.4-10.2); Carbon Dioxide 27 mmol/L (22-30); Chloride 110 mmol/L (98-107); Glucose 105 mg/dL (74-99); Non-African American GFR(CKD) 81 (>60 ml/min/1.73 sqM); Potassium 3.9 mmol/L (3.5-5.1); Sodium 140 mmol/L (137-145); Total Bilirubin 0.4 mg/dL (0.2-1.3); Total Protein 5.4 g/dL (6.3-8.2)
--- NOTE | 2020-01-24 15:16 | MR ---
EXAMINATION TYPE: MR MRCP DATE OF EXAM: 01/24/2020 COMPARISON: CT abdomen and pelvis 4 days ago and older studies back to December 22, 2017 HISTORY: RUQ pain, dilated CBD. History of colon cancer. Standard multiplanar, multisequence MRI departmental protocol Multiplanar, multisequence images of the abdomen were acquired. Thin and thick slice MRCP imaging per formed on the MRI scanner. FINDINGS: Liver/gallbladder/pancreas/biliary system: Corresponding to most recent CT gallbladder has distended margins. There are several scattered calculi of varying size throughout the gallbladder. There is a 1 1 mm nondependent calculus inferiorly along the anterior gallbladder wall axial image 11 gallbladder wall shows mild to moderate wall thickening greatest superiorly with mild perinephric fluid. In addit ion there is 12 mm calculus in the gallbladder neck presumed large coronal image 16. There is mild ex trahepatic biliary dilatation extending from this level towards the duodenal ampulla measuring up to 7 to 8 mm. There is no significant intrahepatic or extrahepatic biliary dilatation. Liver remains nor mal in size without concerning solid or cystic mass. Pancreatic duct is visualized but not suspicious ly dilated. Findings more prominent from older studies. Other: Lung bases are clear. Low dense thickening through both adrenal glands with signal dropout con sistent with benign lipid rich hyperplasia. No renal masses or hydronephrosis. Spleen stable and uppe r limits of normal in size. Stomach poorly distended. No suspicious small or large bowel dilatation. Enterocolic anastomosis right mid to lower abdomen redemonstrated. Visualized osseous structures are intact. No intra-abdominal ascites. IMPRESSION: MRCP findings consistent with acute cholecystitis as detailed above relative to an obstru cting or lodged 12 mm calculus in the gallbladder neck. This is causing mild central extra hepatic bi liary dilatation both related to inflammatory change and mild new prominence of the pancreatic duct. No obstructing CBD calculus noted. A Yellow level critical message alert has been initiated for Markus Tang MD~[id number] via the [employer] Critical Results System on 01/24/2020 3:13 PM. This message alert has been sent to Markus Tang MD~[id number] via the preferences provided by the clinician for the receipt of Radiology Critical F indings. Message ID [id number].
--- NOTE | 2020-01-24 17:34 | P.PN ---
Subjective Progress Note Date: 01/24/20 Principal diagnosis: Cholecystitis Still with significant pain, despite pain medication. Ultrasound shows further dilation, she is 15 days out from anti-angiogenesis, therefore discussion and plan for surgical intervention is resonable at this time especially with patients clinical symptoms and imaging. Objective - Vital Signs Vital signs: Vital Signs Temp 98.0 F 01/24/20 15:15 Pulse 70 01/24/20 15:15 Resp 16 01/24/20 15:15 BP 159/77 01/24/20 17:32 Pulse Ox 97 01/24/20 15:15 Intake & Output 01/23/20 01/24/20 01/24/20 18:59 06:59 18:59 Intake Total 300 Output Total 1000 Balance -1000 300 Intake: Oral 300 Output: Urine 1000 Other: Voiding Method Toilet Toilet Toilet # Voids 3 3 - Exam - Constitutional General appearance: no acute distress - EENT Eyes: EOMI, PERRLA ENT: hearing grossly normal, normal oropharynx - Neck Neck: no lymphadenopathy Thyroid: bilateral: normal size - Respiratory Respiratory: bilateral: CTA - Cardiovascular Rhythm: regular Heart sounds: normal: S1, S2 - Gastrointestinal General gastrointestinal: normal bowel sounds, soft Localized gastrointestinal: tender: RUQ - Integumentary Integumentary: normal - Neurologic Neurologic: CNII-XII intact - Musculoskeletal Musculoskeletal: strength equal bilaterally - Psychiatric Psychiatric: A&O x's 3, appropriate affect - Labs CBC & Chem 7: 01/24/20 10:41 01/24/20 10:41 Labs: Abnormal Lab Results - Last 24 Hours (Table) 01/24/20 01/24/20 Range/Units 10:41 10:41 WBC 12.7 H (3.8-10.6) k/uL RBC 2.56 L (3.80-5.40) m/uL Hgb 8.7 L (11.4-16.0) gm/dL Hct 26.4 L (34.0-46.0) % MCV 103.4 H (80.0-100.0) fL RDW 16.9 H (11.5-15.5) % Plt Count 128 L (150-450) k/uL Neutrophils # 10.3 H (1.3-7.7) k/uL Chloride 110 H (98-107) mmol/L Glucose 105 H (74-99) mg/dL Calcium 8.3 L (8.4-10.2) mg/dL AST 113 H (14-36) U/L ALT 178 H (4-34) U/L Alkaline Phosphatase 168 H (38-126) U/L Total Protein 5.4 L (6.3-8.2) g/dL Albumin 2.8 L (3.5-5.0) g/dL Microbiology - Last 24 Hours (Table) 01/20/20 17:40 Blood Culture - Preliminary Blood No Growth after 72 hours Assessment and Plan (1) Metastatic colon cancer in female Current Visit: Yes Status: Acute Code(s): C18.9 - MALIGNANT NEOPLASM OF COLON, UNSPECIFIED SNOMED Code(s): 403859456 (2) History of breast cancer Current Visit: Yes Status: Acute Code(s): Z85.3 - PERSONAL HISTORY OF MALIGNANT NEOPLASM OF BREAST SNOMED Code(s): 069234246 (3) RUKHSANA (acute kidney injury) Current Visit: Yes Status: Acute Code(s): N17.9 - ACUTE KIDNEY FAILURE, UNSPECIFIED SNOMED Code(s): 35293413 (4) Cholecystitis Current Visit: Yes Status: Acute Code(s): K81.9 - CHOLECYSTITIS, UNSPECIFIED SNOMED Code(s): 95839500 (5) Right upper quadrant abdominal pain Current Visit: Yes Status: Acute Code(s): R10.11 - RIGHT UPPER QUADRANT PAIN SNOMED Code(s): 481598936 (6) UTI (urinary tract infection) Current Visit: Yes Status: Acute Code(s): N39.0 - URINARY TRACT INFECTION, SITE NOT SPECIFIED SNOMED Code(s): 41836189 Plan: Patient is on anti-angiogenesis and surgical intervention is NOT recommended unless absolutely emergent at this time as delayed wound healing is high risk with Zirabev. - If surgical intervention is needed and safe to hold off 2-3 weeks with conservative treatment of abx and pain medication this would be in best interest. If emergent surgical intervention needed, patient and family adamant to have choice surgeon as Dr. Tang. They understand if emergent this may not be possible, although will pass along info. Also very close monitoring of wound healing - Continue Treatment for UTI - Will hold anti-angiogenesis in anticipation of possible eventual surgical intervention, plan to schedule outpatient with Dr. Tang in 1-2 weeks. In the interim will continue supportive care of symptoms. Worsening symptoms if backing of pain medications, 15 days from last treatment with anti-angiogenesis, will need to schedule surgical intervention.
[2020-01-24] MEDS: HYDROcodone/APAP 7.5-325MG 1 EACH TAB PO PRN ×2 (18:54→23:20)
[2020-01-24] MEDS: ESCITALOPRAM 20 MG TAB PO SCH (21:06)
[2020-01-25] MEDS: PIPERACILLIN-TAZOBACTAM 3.375 GM in SODIUM CHLORIDE 0.9% 100 ML IVPB SCH ×2 (02:42→10:29)
[2020-01-25 05:50] VITALS: PULSE 85
[2020-01-25] MEDS: PANTOPRAZOLE 40 MG TABLET PO SCH (06:51)
[2020-01-25] MEDS: lisinopriL 20 MG TAB PO SCH (06:52)
[2020-01-25] MEDS: SODIUM CHLORIDE 0.9% 1,000 ML IV SCH (06:55)
[2020-01-25 07:43] LABS: Anisocytosis Slight; HCT 27.1 % (34.0-46.0); MCH 33.8 pg (25.0-35.0); MCHC 33.2 g/dL (31.0-37.0); MCV 101.8 fL (80.0-100.0); Macrocytosis Slight; Mean Platelet Volume 9.1; Platelet Count 145 k/uL (150-450); RBC 2.66 m/uL (3.80-5.40); RDW 16.4 % (11.5-15.5); WBC 14.4 k/uL (3.8-10.6)
[2020-01-25 07:50] LABS: ALT 160 U/L (4-34); AST 86 U/L (14-36); African American GFR (CKD) >90 (>60 ml/min/1.73 sqM); Albumin 2.9 g/dL (3.5-5.0); Alkaline Phosphatase 170 U/L (38-126); Anion Gap 1 mmol/L; Blood Urea Nitrogen 10 mg/dL (7-17); Calcium 8.5 mg/dL (8.4-10.2); Carbon Dioxide 31 mmol/L (22-30); Chloride 109 mmol/L (98-107); Glucose 96 mg/dL (74-99); Non-African American GFR(CKD) 78 (>60 ml/min/1.73 sqM); Potassium 3.8 mmol/L (3.5-5.1); Sodium 141 mmol/L (137-145); Total Bilirubin 0.4 mg/dL (0.2-1.3); Total Protein 5.7 g/dL (6.3-8.2)
[2020-01-25 08:20] VITALS: BP 171/88; RESP 18; TEMP 97.8
[2020-01-25] MEDS: TAMOXIFEN 10 MG TAB PO SCH (08:27)
[2020-01-25] MEDS: ASPIRIN 81 MG PO SCH (08:28)
[2020-01-25] MEDS: CHOLECALCIFEROL 1,000 UNIT TAB PO SCH (08:28)
[2020-01-25] MEDS: MULTIVITAMINS, THERA 1 EACH TAB PO SCH (08:28)
[2020-01-25] MEDS: ENOXAPARIN 40 MG/0.4 ML SYRINGE SQ SCH (08:28)
[2020-01-25] MEDS: HYDROcodone/APAP 7.5-325MG 1 EACH TAB PO PRN (08:32)
--- NOTE | 2020-01-25 09:01 | P.DS ---
Providers Date of admission: 01/21/20 10:37 Expected date of discharge: 01/25/20 Attending physician: Gama Garza Consults: 01/20/20 17:12 Consult Physician Urgent Consulting Provider: Eddie James Consult Reason/Comments: RUQ pain, leukocytosis, elevated liver enzymes, dehydration Do you want consulting provider notified?: Yes 01/23/20 10:09 Consult Physician Routine Consulting Provider: Markus Tang Consult Reason/Comments: RUQ pain Do you want consulting provider notified?: Already Contacted Primary care physician: Josefa Asif [facility] Course: HISTORY OF PRESENT ILLNESS This is a 62-year-old female patient of Dr. Asif with past medical history of hypertension, left-sided breast cancer status post radiation therapy, colon cancer status post hemicolectomy in December 2017. Please see oncology note regarding history. Patient underwent a CAT scan in July of this year finding ovarian mass on the left side down at [facility] status post hysterectomy and bilateral salpingo-oophorectomy in August of this year. Pathology confirmed: As primary site. Patient was started on FOLFOX and 5-FU initially and changed to FOLFOXIRI + jack. She is status post cycle 6 on 01/11/20. Patient complains of epigastric pain right upper and lower quadrant pain with right upper quadrant tenderness. She has had some decreased appetite with minimal weight loss. She's had a little nausea without vomiting. Her last bowel movement was small yesterday, no diarrhea. Patient states abdominal pain continued to worsen and on Thursday night she vomited all night as well as had diarrhea. She was in contact with her oncology [employer] and was advised come in the hospital for further evaluation and treatment. CAT scan of the abdomen and pelvis with contrast revealed left flank subcutaneous density. Postsurgical changes within the ascending colon region. No suspicious changes for metastatic disease. Possible mild ileus small bowel loops within the pelvis. Ultrasound of the gallbladder reveals gallstones, dilated gallbladder measures 5 cm in diameter. This could relate to cholecystitis. Bile ducts are not dilated. Patient was afebrile, heart rate currently 76, blood pressure 126/75, pulse ox 97% on room air. WBC 16.9, hemoglobin 1.1, platelet count 119. Electrolytes were normal. Renal function slightly elevated at BUN 25 and creatinine 1.19. Liver function tests elevated with AST 137, ALT 234, alkaline phosphatase 205. Urinalysis cloudy, blood small, leukoesterase large, WBCs 34, bacteria rare. Patient was given a dose of ceftriaxone, started on IV fluids and morphine for pain, Zofran for nausea and admitted to the observation unit. 01/21: [facility] waiting for an inpatient bed. She states her abdominal pain is about the same as yesterday and not better. Dilaudid seems to be helping. She denies having any diarrhea last bowel movement was last evening it was green but formed. Ceftriaxone will be changed to Zosyn. Patient is at increased risk for postop complications due to recent chemotherapy and oncology is recommended at least 3-4 week interval after the last dose of chemotherapy prior to any elective surgery. She is able to tolerate diet. Incentive spirometry will be added. Patient has been afebrile, heart rate 85, blood pressure 135/73, pulse ox 97% on room air. Repeat blood work reveals improvement of leukocytosis to 12.4, hemoglobin is 8.8, platelet count 97. Electrolytes unremarkable. Creatinine 0.85. Total bilirubin 0.2, AST 104, ALT 184, alkaline phosphatase 146. Urine culture finalized with skin duc. Blood cultures in progress. 01/22: Patient continues to have abdominal pain, able to tolerate food. Discussed with Dr. James patient's bedside and plan to reevaluate gallbladder with ultrasound. Surgeon will be changed to Dr. Tang. Repeat blood work reveals WBC 9.7, hemoglobin 9.0, platelet count 103. Other joints unremarkable, creatinine 0.86. Total bilirubin 0.3, AST 103, ALT 161, alkaline phosphatase 164. 01/23: Vision continues to have significant abdominal pain. She tried to back off on pain medication yesterday and it became uncontrolled. She was able to easily little bit of food. Dr. James in Dr. Tang will discuss option of surgery since patient is not receiving any relief from pain. Ultrasound of the abdomen was repeated yesterday which revealed bile duct caliber appears increased at 8.6 mm versus 6 mm previously. Correlate with alkaline phosphatase and bilirubin levels to exclude early biliary obstruction. Cholelithiasis and borderline hypertrophic change of the gallbladder. No radha wall thickening or surrounding fluid. No [place] sign. She has been afebrile, heart rate 77, blood pressure 155/79, pulse ox 94% on room air. 01/24: Patient continues to have difficulty with pain control but seemed to do better with Percocet that was ordered by oncology. We will send an prescription from the office for Percocet. Dr. Tang is planning for cholecystectomy a week from and plan to discuss this with Dr. James. Blood pressure has remained on the high side and prescription for clonidine as needed will be sent to her pharmacy. Otherwise, patient has been afebrile, heart rate 60, blood pressure 147/71, pulse ox 93% on room air. WBC 6.4, hemoglobin 8.6. Potassium 3.1 and will be replaced, blood sugars running between 112 and 241. Patient will be discharged home today in stable condition with plan to return next for laparoscopic cholecystectomy under Dr. Tang. ASSESSMENT AND PLAN 1. Acute cholecystitis. 2. Metastatic colon cancer status post hysterectomy and bilateral salpingo- oophorectomy in August and currently undergoing chemotherapy. 3. History of colon cancer status post hemicolectomy in December [address] Kulkarni. 4. Nausea, vomiting, diarrhea secondary to chemotherapy. 5. Acute urinary tract infection ruled out. 6. Acute kidney injury. 7. Hypertension. 8. Bicytopenia with thrombocytopenia and anemia secondary to chemotherapy. 9. History of breast cancer status post lumpectomy and radiation. DISCHARGE PLAN Home. Impression and plan of care have been directed as dictated by the signing physician. Opal Moreno nurse practitioner acting as scribe for signing physician. Patient Condition at Discharge: Stable Plan - Discharge Summary Discharge Rx Participant: No New Discharge Prescriptions: New cloNIDine HCL [Catapres] 0.1 mg PO TID #90 tab Levofloxacin [Levaquin] 500 mg PO DAILY 8 Days #8 tab Continue Cyanocobalamin [Vitamin B-12] 500 mcg PO DAILY Cholecalciferol (Vitamin D3) [Vitamin D3] 2,000 unit PO DAILY Multivitamins, Thera [Multivitamin (formulary)] 1 tab PO DAILY Aspirin [Adult Low Dose Aspirin EC] 81 mg PO DAILY Tamoxifen Citrate 20 mg PO DAILY Thiamine [Vitamin B-1] 100 mg PO DAILY Calcium And Magnesium Oral Tab (Unknown Strength) 1 tab PO DAILY Ondansetron Odt [Zofran ODT] 4 mg PO Q4-6H PRN PRN Reason: Nausea And Vomiting Cholestyramine (with Sugar) [Cholestyramine Packet] 4 gm PO BID lisinopriL [Prinivil] 20 mg PO BID Escitalopram Oxalate [Lexapro] 10 mg PO DAILY Discharge Medication List Aspirin [Adult Low Dose Aspirin EC] 81 mg PO DAILY 07/10/17 [History] Cholecalciferol (Vitamin D3) [Vitamin D3] 2,000 unit PO DAILY 07/10/17 [History] Cyanocobalamin [Vitamin B-12] 500 mcg PO DAILY 07/10/17 [History] Multivitamins, Thera [Multivitamin (formulary)] 1 tab PO DAILY 07/10/17 [History] Tamoxifen Citrate 20 mg PO DAILY 12/16/17 [History] Calcium And Magnesium Oral Tab (Unknown Strength) 1 tab PO DAILY 01/20/20 [History] Cholestyramine (with Sugar) [Cholestyramine Packet] 4 gm PO BID 01/20/20 [History] Escitalopram Oxalate [Lexapro] 10 mg PO DAILY 01/20/20 [History] Ondansetron Odt [Zofran ODT] 4 mg PO Q4-6H PRN 01/20/20 [History] Thiamine [Vitamin B-1] 100 mg PO DAILY 01/20/20 [History] lisinopriL [Prinivil] 20 mg PO BID 01/20/20 [History] Levofloxacin [Levaquin] 500 mg PO DAILY 8 Days #8 tab 01/25/20 [Rx] cloNIDine HCL [Catapres] 0.1 mg PO TID #90 tab 01/25/20 [Rx] Follow up Appointment(s)/Referral(s): Josefa Asif MD [Primary Care Provider] - 1 Week Discharge Disposition: HOME SELF-CARE
[2020-01-25] MEDS: HYDROmorphone 0.5 MG/0.5 ML SYRINGE IVP PRN (09:24)
[2020-01-25] MEDS ORDERED: oxyCODONE-APAP 7.5-325MG 1 EACH TAB PO STA (09:32)
--- NOTE | 2020-01-25 11:53 | P.PN ---
Subjective Progress Note Date: 01/25/20 Principal diagnosis: Acute cholecystitis Patient says she is doing about the same as yesterday. Still having mild discomfort but controlled with analgesics. She is trying to hold off on using the IV form of pain medicine. Tolerating diet. No nausea or vomiting. White blood cell count slightly elevated. Liver enzymes trending down. Objective - Vital Signs Vital signs: Vital Signs Temp 97.8 F 01/25/20 08:17 Pulse 85 01/25/20 08:17 Resp 18 01/25/20 08:17 BP 171/88 01/25/20 08:17 Pulse Ox 97 01/25/20 08:17 Intake & Output 01/24/20 01/25/20 01/25/20 18:59 06:59 18:59 Intake Total 600 Balance 600 Intake: Oral 600 Other: Voiding Method Toilet Toilet Toilet # Voids 3 1 # Bowel Movements 2 - Exam Abdomen: Soft, nondistended, mild right upper quadrant tenderness - Labs CBC & Chem 7: 01/25/20 07:12 01/25/20 07:12 Labs: Abnormal Lab Results - Last 24 Hours (Table) 01/25/20 01/25/20 Range/Units 07:12 07:12 WBC 14.4 H (3.8-10.6) k/uL RBC 2.66 L (3.80-5.40) m/uL Hgb 9.0 L (11.4-16.0) gm/dL Hct 27.1 L (34.0-46.0) % MCV 101.8 H (80.0-100.0) fL RDW 16.4 H (11.5-15.5) % Plt Count 145 L (150-450) k/uL Chloride 109 H (98-107) mmol/L Carbon Dioxide 31 H (22-30) mmol/L AST 86 H (14-36) U/L ALT 160 H (4-34) U/L Alkaline Phosphatase 170 H (38-126) U/L Total Protein 5.7 L (6.3-8.2) g/dL Albumin 2.9 L (3.5-5.0) g/dL Microbiology - Last 24 Hours (Table) 01/20/20 17:40 Blood Culture - Preliminary Blood No Growth after 96 hours Assessment and Plan (1) Cholecystitis Narrative/Plan: 64-year-old female with acute cholecystitis. Continue antibiotics and analgesics. Await appropriate timing for cholecystectomy. Will discuss further with oncology but currently scheduled for next . Current Visit: Yes Status: Acute Code(s): K81.9 - CHOLECYSTITIS, UNSPECIFIED SNOMED Code(s): 71440983
--- NOTE | 2020-01-25 22:47 | P.PN ---
Subjective Progress Note Date: 01/25/20 Principal diagnosis: Cholecystitis Patient seen and examined this am, massiel was not controlling pain, she is 15 days from avastin Objective - Vital Signs Vital signs: Vital Signs Temp 97.8 F 01/25/20 08:17 Pulse 85 01/25/20 08:17 Resp 18 01/25/20 08:17 BP 171/88 01/25/20 08:17 Pulse Ox 97 01/25/20 08:17 Intake & Output 01/25/20 01/25/20 01/26/20 06:59 18:59 06:59 Other: Voiding Method Toilet Toilet # Voids 1 # Bowel Movements 2 - Exam - Constitutional General appearance: no acute distress - EENT Eyes: EOMI, PERRLA ENT: hearing grossly normal, normal oropharynx - Neck Neck: no lymphadenopathy Thyroid: bilateral: normal size - Respiratory Respiratory: bilateral: CTA - Cardiovascular Rhythm: regular Heart sounds: normal: S1, S2 - Gastrointestinal General gastrointestinal: normal bowel sounds, soft Localized gastrointestinal: tender: RUQ - Integumentary Integumentary: normal - Neurologic Neurologic: CNII-XII intact - Musculoskeletal Musculoskeletal: strength equal bilaterally - Psychiatric Psychiatric: A&O x's 3, appropriate affect - Labs CBC & Chem 7: 01/25/20 07:12 01/25/20 07:12 Labs: Abnormal Lab Results - Last 24 Hours (Table) 01/25/20 01/25/20 Range/Units 07:12 07:12 WBC 14.4 H (3.8-10.6) k/uL RBC 2.66 L (3.80-5.40) m/uL Hgb 9.0 L (11.4-16.0) gm/dL Hct 27.1 L (34.0-46.0) % MCV 101.8 H (80.0-100.0) fL RDW 16.4 H (11.5-15.5) % Plt Count 145 L (150-450) k/uL Chloride 109 H (98-107) mmol/L Carbon Dioxide 31 H (22-30) mmol/L AST 86 H (14-36) U/L ALT 160 H (4-34) U/L Alkaline Phosphatase 170 H (38-126) U/L Total Protein 5.7 L (6.3-8.2) g/dL Albumin 2.9 L (3.5-5.0) g/dL Microbiology - Last 24 Hours (Table) 01/20/20 17:40 Blood Culture - Preliminary Blood No Growth after 120 hours Assessment and Plan (1) Metastatic colon cancer in female Status: Acute Code(s): C18.9 - MALIGNANT NEOPLASM OF COLON, UNSPECIFIED SN OMED Code(s): 162014087 (2) History of breast cancer Status: Acute Code(s): Z85.3 - PERSONAL HISTORY OF MALIGNANT NEOPLASM OF BREAST SNOMED Code(s): 888437410 (3) RUKHSANA (acute kidney injury) Status: Acute Code(s): N17.9 - ACUTE KIDNEY FAILURE, UNSPECIFIED SNOMED Code(s): 19627525 (4) Cholecystitis Status: Acute Code(s): K81.9 - CHOLECYSTITIS, UNSPECIFIED SNOMED Code(s): 36983448 (5) Right upper quadrant abdominal pain Status: Acute Code(s): R10.11 - RIGHT UPPER QUADRANT PAIN SNOMED Code(s): 340546264 (6) UTI (urinary tract infection) Status: Acute Code(s): N39.0 - URINARY TRACT INFECTION, SITE NOT SPECIFIED SNOMED Code(s): 61628902 Plan: Patient is on anti-angiogenesis and surgical intervention is NOT recommended unless absolutely emergent at this time as delayed wound healing is high risk with Zirabev. - If surgical intervention is needed and safe to hold off 2-3 weeks with conservative treatment of abx and pain medication this would be in best interest. If emergent surgical intervention needed, patient and family adamant to have choice surgeon as Dr. Tang. They understand if emergent this may not be possible, although will pass along info. Also very close monitoring of wound healing - Continue Treatment for UTI - Will hold anti-angiogenesis in anticipation of next surgical intervention Pain not controlled on norco, trial percocet if improved discharged with percocet 3 day and follow-up outpatient. Physician Attest: I have completed the full history and physical and agree with above dictation dictated as a scribe.
== END 2020-01-25 15:24 | disposition home or self-care (01) | DRG 445 ==
LOC: EC 13:13 → 1SOBS 16:52 → OBSVTOIN 01-21 10:37
PROVIDERS: ADMIT Internal Medicine Geriatric Medicine; ATTEND Internal Medicine Geriatric Medicine
DX: K80.13 Calculus of gallbladder with acute and chronic cholecystitis with obstruction (principal); C18.9 Malignant neoplasm of colon, unspecified; N39.0 Urinary tract infection, site not specified; N17.9 Acute kidney failure, unspecified; K52.1 Toxic gastroenteritis and colitis; C79.9 Secondary malignant neoplasm of unspecified site; D69.59 Other secondary thrombocytopenia; E86.0 Dehydration; K21.9 Gastro-esophageal reflux disease without esophagitis; T45.1X5A Adverse effect of antineoplastic and immunosuppressive drugs, initial encounter; I10 Essential (primary) hypertension; Z17.0 Estrogen receptor positive status [ER+]; Z79.82 Long term (current) use of aspirin; Z79.899 Other long term (current) drug therapy; Z90.710 Acquired absence of both cervix and uterus; Z90.49 Acquired absence of other specified parts of digestive tract; Z85.3 Personal history of malignant neoplasm of breast; Z92.3 Personal history of irradiation; Z90.12 Acquired absence of left breast and nipple; Z90.79 Acquired absence of other genital organ(s); Z90.722 Acquired absence of ovaries, bilateral; Z98.890 Other specified postprocedural states; Z82.5 Family history of asthma and other chronic lower respiratory diseases; Z81.8 Family history of other mental and behavioral disorders; Z80.1 Family history of malignant neoplasm of trachea, bronchus and lung; Z80.2 Family history of malignant neoplasm of other respiratory and intrathoracic organs; D64.81 Anemia due to antineoplastic chemotherapy; Z87.891 Personal history of nicotine dependence
CPT/HCPCS: 36415; 74177; 74181; 76705; 80053; 81001; 82150; 83605; 83690; 85025; 85027; 85610; 85730; 87040; 87086; 96361; 96374; 96375; 99285

== ENCOUNTER 2020-02-02 11:20 | Day surgery (SDC) | payer BC ==
[2020-01-30 16:09] VITALS: BMI 27.3
[~2020-02-02 11:20] MED LIST changes: +ACETAMINOPHEN TAB 500 MG TAB PO PRN; +DEXAMETHASONE SOD PHOSPHATE 4 MG/ML 1 ML VIAL IV ONE; +HEPARIN SODIUM,PORCINE 5,000 UNIT/ML 1 ML VIAL SQ PRN; +HYDROmorphone 0.5 MG/0.5 ML SYRINGE IVP PRN; -LACTATED RINGERS 1,000 ML IV SCH; +LIDOCAINE 1% (10MG/ML) FOR IV START INTRADERMA PRN; -LIDOCAINE 1% 20 ML VIAL (10MG/ML) FOR IV START INTRADERMA PRN; +MIDAZOLAM 2 MG/2 ML VIAL IV PRN; +ONDANSETRON 4 MG/2 ML VIAL IVP ONE
--- NOTE | 2020-02-02 12:15 | P.GSHP ---
History of Present Illness H&P Date: 02/02/20 Chief Complaint: acute cholecystitis 64-year-old female recently hospitalized for acute cholecystitis. Patient is undergoing chemotherapy for metastatic colon cancer to the ovary. Patient's liver enzymes were elevated during her recent hospital stay. MRI was obtained which showed impacted stone at the gallbladder neck compressing slightly on the common hepatic duct. Patient's symptoms gradually improved during her hospital stay with bowel rest followed by low fat diet and concurrent antibiotics. She was sent home on antibiotics. Surgery was postponed given her recent chemotherapy medications per the advice of oncology. She is here today for cholecystectomy. Past Medical History Past Medical History: Cancer, GERD/Reflux, Hypertension Additional Past Medical History / Comment(s): LT BREAST CANCER, colon cancer stage II-METS TO OVARIES-CHEMO ON HOLD UNITL AFTER PROCEDURE, GALLBLADDER DISORDER, History of Any Multi-Drug Resistant Organisms: None Reported Past Surgical History: Bowel Resection, Breast Surgery, Hysterectomy Additional Past Surgical History / Comment(s): LT BREAST LUMPECTOMY-RADIATION, COLONOSCOPY, HAS PORT A CATH Past Anesthesia/Blood Transfusion Reactions: No Reported Reaction Smoking Status: Former smoker - Past Family History Mother Family Medical History: COPD, Dementia Father Family Medical History: AFIB, Cancer Additional Family Medical History / Comment(s): Lung cancer. Sister(s) Family Medical History: Cancer Additional Family Medical History / Comment(s): VOCAL CORD CANCER Medications and Allergies Home Medications Medication Instructions Recorded Confirmed Type Aspirin [Adult Low Dose Aspirin EC] 81 mg PO DAILY 07/10/17 02/02/20 History Cholecalciferol (Vitamin D3) 2,000 unit PO DAILY 07/10/17 02/02/20 History [Vitamin D3] Cyanocobalamin [Vitamin B-12] 500 mcg PO DAILY 07/10/17 02/02/20 History Multivitamins, Thera [Multivitamin 1 tab PO DAILY 07/10/17 02/02/20 History (formulary)] Tamoxifen Citrate 20 mg PO DAILY 12/16/17 02/02/20 History Calcium And Magnesium Oral Tab 1 tab PO DAILY 01/20/20 02/02/20 History (Unknown Strength) Cholestyramine (with Sugar) 4 gm PO BID 01/20/20 02/02/20 History [Cholestyramine Packet] Escitalopram Oxalate [Lexapro] 10 mg PO DAILY 01/20/20 02/02/20 History Ondansetron Odt [Zofran ODT] 4 mg PO Q4-6H PRN 01/20/20 02/02/20 History Thiamine [Vitamin B-1] 100 mg PO DAILY 01/20/20 02/02/20 History lisinopriL [Prinivil] 20 mg PO BID 01/20/20 02/02/20 History cloNIDine HCL [Catapres] 0.1 mg PO TID #90 tab 01/25/20 02/02/20 Rx oxyCODONE-APAP 7.5-325MG [Percocet 1 tab PO Q6HR PRN 01/30/20 02/02/20 History 7.5-325 mg] Allergies Allergy/AdvReac Type Severity Reaction Status Date / Time No Known Allergies Allergy Verified 02/02/20 11:48 Surgical - Exam Vital Signs Temp Pulse BP Pulse Ox 97.9 F 93 159/83 98 02/02/20 11:53 02/02/20 11:53 02/02/20 11:53 02/02/20 11:53 Physical exam: General: Well-developed, well-nourished HEENT: Normocephalic, sclerae nonicteric Abdomen: Mild right upper quadrant tenderness, nondistended Extremities: No edema Neuro: Alert and oriented Assessment and Plan (1) Cholecystitis Narrative/Plan: 64-year-old female with acute cholecystitis. We'll proceed with laparoscopic, possible open cholecystectomy at this time. Risks of bleeding, infection, bile leak, bile duct injury, retained common bile duct stone, trocar injury, conversion to an open procedure, hernia, anesthesia related complications were reviewed. The patient understands and wishes to proceed. Current Visit: No Status: Acute Code(s): K81.9 - CHOLECYSTITIS, UNSPECIFIED SNOMED Code(s): 26073060
[2020-02-02] MEDS: LACTATED RINGERS 1,000 ML IV SCH ×2 (12:18→16:01)
[2020-02-02] MEDS ORDERED: ROCURONIUM 10 MG/ML (10 ML VIAL) IV ONE (12:31)
[2020-02-02] MEDS ORDERED: fentaNYL (PF) 50 MCG/ML 2 ML AMP ONE (12:31)
[2020-02-02] MEDS ORDERED: NEOSTIGMINE 1 MG/ML 10 ML VIAL ONE (12:31)
[2020-02-02] MEDS ORDERED: GLYCOPYRROLATE 0.2 MG/ML 2 ML VIAL ONE (12:31)
[2020-02-02] MEDS ORDERED: PROPOFOL 10 MG/ML 20 ML VIAL IV ONE (12:31)
[2020-02-02] MEDS ORDERED: ONDANSETRON 4 MG/2 ML VIAL ONE (12:31)
[2020-02-02] MEDS ORDERED: HYDROmorphone (PF) 1 MG/ML ONE (12:31)
[2020-02-02] MEDS ORDERED: SUCCINYLCHOLINE CHLORIDE 100 MG/5 ML SYR IV ONE (12:31)
[2020-02-02] MEDS ORDERED: MIDAZOLAM 2 MG/2 ML VIAL ONE (12:31)
[2020-02-02] MEDS ORDERED: LIDOCAINE 1% INJ 10MG/ML (20 ML MDV) ONE (12:31)
[2020-02-02] MEDS ORDERED: BUPIVACAIN-EPI 0.5%-1:200,000 30 ML VIAL SQ ONE (12:58)
[2020-02-02] MEDS ORDERED: LACTATED RINGERS 1,000 ML IV ONE (14:16)
[2020-02-02] MEDS ORDERED: NALOXONE 0.4 MG/ML 1 ML VIAL IV PRN (14:19)
[2020-02-02] MEDS ORDERED: HYDROcodone/APAP 5-325MG 1 EACH TAB PO PRN (14:19)
[2020-02-02] MEDS: hydrALAZINE HCL 20 MG/ML 1 ML VIAL IVP ONE ×3 (14:22→15:08)
[2020-02-02 14:29] VITALS: RESP 16; TEMP 97.2
--- NOTE | 2020-02-02 14:31 | P.OP ---
Date of Procedure: 02/02/20 Procedure(s) Performed: PREOPERATIVE DIAGNOSIS: Acute cholecystitis with hydrops POSTOPERATIVE DIAGNOSIS: Same PROCEDURE: Laparoscopic cholecystectomy SURGEON: Kitty EBL: Minimal see anesthesia record ANESTHESIA: Gen. COMPLICATIONS: None OPERATIVE PROCEDURE: The patient was brought and placed on the operating room table in the supine position. The patient was placed under general anesthesia at that time. The abdomen was prepped and draped in the usual sterile fashion. The patient had a previous transverse right upper quadrant incision from open colectomy. A 5 mm optical trocar was used to enter the perineal cavity in the left upper quadrant. Full insufflation took place up to 15 mmHg. They fully the patient had no adhesions to the abdominal wall. A 5 mm trocar was then placed at the infraumbilical location as well as 2 additional 5 mm trochars in the right upper quadrant under direct visualization. A 12 mm trocar was advanced into the epigastric incision site. The camera was then inserted through the umbilical site. The gallbladder was acutely inflamed. The omentum was adherent densely to the gallbladder. The duodenal sweep was also adherent. Blunt dissection were used to sweep the adhesions away. No significant bleeding was seen except for one small area on the omentum that was clipped using the 12 mm clip ribbon blockmaker. In order to grasp the gallbladder we had to aspirate it. A small opening was made. Clear fluid was evacuated. The gallbladder was retracted superiorly and laterally. The peritoneum overlying the infundibulum was bluntly dissected. The patient's cystic duct was visualized. The junction between the cystic duct common and hepatic duct was identified. The cystic duct was then divided after placement of 3 12 mm clips on the patient's side and one on the specimen side. The cystic artery was identified and clipped as well. A small vessel was seen along the gallbladder fossa and clipped as well. It should be noted that ICG was used for this procedure. This is a new modality for this particular camera system. The dose was apparently more than we would use for our robotic procedures. Because of that the amount of dye picked up by the camera was excessive and it was difficult to delineate the biliary system initially. As the ICG wore off we were able to see better. The course of the common hepatic and common bile duct was seen. The gallbladder was then removed from the liver bed using electrocautery. The gallbladder was then removed from the epigastric trocar site with an Endo Catch bag. This required lengthening of the incision in the fascia. The gallbladder fossa was irrigated with saline. There was no evidence of any bleeding or biliary drainage seen. The fascia at the 12 millimeter site was closed using a running 0 Vicryl stitch. The trochars were then removed. The skin at all 5 sites was closed using a 4-0 Monocryl stitch. Skin glue was utilized on the incision sites. At the end of this procedure the sponge and needle counts were correct. DISPOSITION: Stable to the recovery room
[2020-02-02] MEDS: HYDROmorphone 1 MG/ML 1 ML SYRINGE IVP ONE ×3 (14:42→15:08)
[2020-02-02] MEDS ORDERED: oxyCODONE-APAP 7.5-325MG 1 EACH TAB ONE (15:41)
[2020-02-02] MEDS ORDERED: oxyCODONE-APAP 7.5-325MG 1 EACH TAB PO ONE (15:55)
[2020-02-02 16:20] VITALS: BP 158/75; PULSE 86
== END 2020-02-02 16:59 | disposition home or self-care (01) ==
LOC: OR 11:20
PROVIDERS: ATTEND Surgery
DX: K80.12 Calculus of gallbladder with acute and chronic cholecystitis without obstruction (principal); K82.1 Hydrops of gallbladder; I10 Essential (primary) hypertension; K21.9 Gastro-esophageal reflux disease without esophagitis; Z79.82 Long term (current) use of aspirin; Z79.899 Other long term (current) drug therapy; Z85.3 Personal history of malignant neoplasm of breast; Z85.038 Personal history of other malignant neoplasm of large intestine; C79.60 Secondary malignant neoplasm of unspecified ovary; Z90.710 Acquired absence of both cervix and uterus; Z90.49 Acquired absence of other specified parts of digestive tract; Z98.890 Other specified postprocedural states; Z87.891 Personal history of nicotine dependence; Z82.5 Family history of asthma and other chronic lower respiratory diseases; Z80.1 Family history of malignant neoplasm of trachea, bronchus and lung; Z82.49 Family history of ischemic heart disease and other diseases of the circulatory system; Z81.8 Family history of other mental and behavioral disorders; Z80.8 Family history of malignant neoplasm of other organs or systems
CPT/HCPCS: 88304; 47563; J2250; J0360; J1644; J1100; J2710; J0690; J2405; J2001; J3010; J1170; J0330; J2704

== ENCOUNTER 2020-05-02 16:38 | Inpatient (IN) | payer BC ==
[2020-05-02] MEDS ORDERED: SODIUM CHLORIDE 0.9% 1,000 ML IV STA (17:23)
[2020-05-02] MEDS ORDERED: LORazepam 2 MG/ML INJ IV STA (17:33)
--- NOTE | 2020-05-02 17:50 | ED ---
General Adult HPI - General Chief complaint: Weakness Stated complaint: Weakness Time Seen by Provider: 05/02/20 17:13 Source: patient, RN notes reviewed, old records reviewed Mode of arrival: wheelchair Limitations: no limitations - History of Present Illness Initial comments: 64-year-old female with metastatic colon cancer presenting for evaluation of nausea vomiting and diarrhea. Patient has had symptoms for approximately one month. She received chemotherapy one week ago. She's had multiple episodes of vomiting and his had very poor oral intake. She received IV hydration this morning at the cancer [facility] and was told to come to the emergency department with abnormal laboratory testing. She was told that she had abnormal kidney and liver labs. She reports some minimal upper abdominal pain. No reported fever. No cough. She does have some exertional dyspnea. No lower extremity pain or swelling. - Related Data Home Medications Medication Instructions Recorded Confirmed Cyanocobalamin [Vitamin B-12] 500 mcg PO DAILY 07/10/17 05/02/20 Multivitamins, Thera [Multivitamin 1 tab PO DAILY 07/10/17 05/02/20 (formulary)] Tamoxifen Citrate 20 mg PO DAILY 12/16/17 05/02/20 Calcium And Magnesium Oral Tab 1 tab PO DAILY 01/20/20 05/02/20 (Unknown Strength) Escitalopram Oxalate [Lexapro] 10 mg PO DAILY 01/20/20 05/02/20 lisinopriL [Prinivil] 20 mg PO BID@0900,1800 01/20/20 05/02/20 Cholecalciferol [Vitamin D3 (25 50 mcg PO DAILY 05/02/20 05/02/20 Mcg = 1000 Iu)] Cyanocobalamin [Vitamin B-12] 500 mcg PO DAILY 05/02/20 05/02/20 Diphenox-Atrop 2.5-0.025 mg 1 tab PO Q3H 05/02/20 05/02/20 [Lomotil] Loperamide [Imodium] 2 mg PO Q3H 05/02/20 05/02/20 Prochlorperazine [Compazine] 10 mg PO TID PRN 05/02/20 05/02/20 Vitamin B Complex 1 cap PO DAILY 05/02/20 05/02/20 Allergies Allergy/AdvReac Type Severity Reaction Status Date / Time No Known Allergies Allergy Verified 05/02/20 18:35 Review of Systems ROS Statement: Those systems with pertinent positive or pertinent negative responses have been documented in the HPI. ROS Other: All systems not noted in ROS Statement are negative. Past Medical History Past Medical History: Cancer, GERD/Reflux, Hypertension Additional Past Medical History / Comment(s): LT BREAST CANCER, colon cancer stage II-METS TO OVARIES-CHEMO ON HOLD UNITL AFTER PROCEDURE, GALLBLADDER DISORDER, History of Any Multi-Drug Resistant Organisms: None Reported Past Surgical History: Bowel Resection, Breast Surgery, Hysterectomy Additional Past Surgical History / Comment(s): LT BREAST LUMPECTOMY-RADIATION, COLONOSCOPY, HAS PORT A CATH Past Anesthesia/Blood Transfusion Reactions: No Reported Reaction Past Psychological History: No Psychological Hx Reported Smoking Status: Former smoker Past Alcohol Use History: None Reported Past Drug Use History: None Reported - Past Family History Mother Family Medical History: COPD, Dementia Father Family Medical History: AFIB, Cancer Additional Family Medical History / Comment(s): Lung cancer. Sister(s) Family Medical History: Cancer Additional Family Medical History / Comment(s): VOCAL CORD CANCER General Exam Limitations: no limitations General appearance: alert, in no apparent distress Head exam: Present: atraumatic, normocephalic Eye exam: Present: normal appearance, PERRL ENT exam: Present: mucous membranes dry Neck exam: Present: normal inspection. Absent: tenderness, meningismus Respiratory exam: Present: normal lung sounds bilaterally. Absent: respiratory distress, wheezes Cardiovascular Exam: Present: normal rhythm, tachycardia GI/Abdominal exam: Present: soft. Absent: distended, tenderness, guarding, rebound Extremities exam: Present: normal inspection, normal capillary refill Neurological exam: Present: alert, oriented X3, CN II-XII intact. Absent: motor sensory deficit Psychiatric exam: Present: normal affect, normal mood Skin exam: Present: warm, dry, intact. Absent: cyanosis, diaphoretic Course Vital Signs 05/02/20 05/02/20 16:53 18:41 Temperature 98.1 F Pulse Rate 105 H 76 Respiratory 18 18 Rate Blood Pressure 112/68 137/66 O2 Sat by Pulse 99 94 L Oximetry EKG Findings - EKG Comments: EKG Findings:: EKG: Normal sinus rhythm, rate of 81 IL interval 172, QRS duration 82, QTC [address] segment elevation. Medical Decision Making - Medical Decision Making 64-year-old female with nausea vomiting diarrhea. Patient sent in for IV hydration and likely replacement. Laboratory studies are repeated, she does have an acute kidney injury with a doubling of her baseline creatinine. Normal CBC. She has a potassium 2.7 which is replaced both with IV and oral potassium. She is maintained on continuous IV hydration case discussed with Dr. Garza who will admit. - Lab Data Result diagrams: 05/02/20 17:52 05/02/20 17:52 Lab Results 05/02/20 05/02/20 05/02/20 Range/Units 17:52 17:52 17:52 WBC 7.4 (3.8-10.6) k/uL RBC 2.85 L (3.80-5.40) m/uL Hgb 9.6 L (11.4-16.0) gm/dL Hct 28.3 L (34.0-46.0) % MCV 99.1 (80.0-100.0) fL MCH 33.7 (25.0-35.0) pg MCHC 34.0 (31.0-37.0) g/dL RDW 16.8 H (11.5-15.5) % Plt Count 30 L (150-450) k/uL MPV 13.1 Neutrophils % 81 % Lymphocytes % 15 % Monocytes % 2 % Eosinophils % 0 % Basophils % 0 % Neutrophils # 6.0 (1.3-7.7) k/uL Lymphocytes # 1.2 (1.0-4.8) k/uL Monocytes # 0.2 (0-1.0) k/uL Eosinophils # 0.0 (0-0.7) k/uL Basophils # 0.0 (0-0.2) k/uL Manual Slide Review Performed Large Platelets Present Anisocytosis Slight Macrocytosis Slight PT 12.2 H (9.0-12.0) sec INR 1.2 H (<1.2) APTT 20.0 L (22.0-30.0) sec Sodium 135 L (137-145) mmol/L Potassium 2.7 L* (3.5-5.1) mmol/L Chloride 102 (98-107) mmol/L Carbon Dioxide 22 (22-30) mmol/L Anion Gap 11 mmol/L BUN 43 H (7-17) mg/dL Creatinine 1.69 H (0.52-1.04) mg/dL Est GFR (CKD-EPI)AfAm 37 (>60 ml/min/1.73 sqM) Est GFR (CKD-EPI)NonAf 32 (>60 ml/min/1.73 sqM) Glucose 148 H (74-99) mg/dL Plasma Lactic Acid Bradley (0.7-2.0) mmol/L Calcium 8.8 (8.4-10.2) mg/dL Magnesium 1.8 (1.6-2.3) mg/dL Total Bilirubin 0.6 (0.2-1.3) mg/dL AST 114 H (14-36) U/L ALT 139 H (4-34) U/L Alkaline Phosphatase 231 H (38-126) U/L Total Protein 6.4 (6.3-8.2) g/dL Albumin 3.7 (3.5-5.0) g/dL Amylase 88 (30-110) U/L Lipase 274 (23-300) U/L / Range/Units 17:52 WBC (3.8-10.6) k/uL RBC (3.80-5.40) m/uL Hgb (11.4-16.0) gm/dL Hct (34.0-46.0) % MCV (80.0-100.0) fL MCH (25.0-35.0) pg MCHC (31.0-37.0) g/dL RDW (11.5-15.5) % Plt Count (150-450) k/uL MPV Neutrophils % % Lymphocytes % % Monocytes % % Eosinophils % % Basophils % % Neutrophils # (1.3-7.7) k/uL Lymphocytes # (1.0-4.8) k/uL Monocytes # (0-1.0) k/uL Eosinophils # (0-0.7) k/uL Basophils # (0-0.2) k/uL Manual Slide Review Large Platelets Anisocytosis Macrocytosis PT (9.0-12.0) sec INR (<1.2) APTT (22.0-30.0) sec Sodium (137-145) mmol/L Potassium (3.5-5.1) mmol/L Chloride (98-107) mmol/L Carbon Dioxide (22-30) mmol/L Anion Gap mmol/L BUN (7-17) mg/dL Creatinine (0.52-1.04) mg/dL Est GFR (CKD-EPI)AfAm (>60 ml/min/1.73 sqM) Est GFR (CKD-EPI)NonAf (>60 ml/min/1.73 sqM) Glucose (74-99) mg/dL Plasma Lactic Acid Bradley 1.7 (0.7-2.0) mmol/L Calcium (8.4-10.2) mg/dL Magnesium (1.6-2.3) mg/dL Total Bilirubin (0.2-1.3) mg/dL AST (14-36) U/L ALT (4-34) U/L Alkaline Phosphatase (38-126) U/L Total Protein (6.3-8.2) g/dL Albumin (3.5-5.0) g/dL Amylase (30-110) U/L Lipase (23-300) U/L Disposition Clinical Impression: RUKHSANA (acute kidney injury), Dehydration, Hypokalemia Disposition: ADMITTED IP TO THIS [facility] Condition: Stable Is patient prescribed a controlled substance at d/c from ED?: No Referrals: Josefa Asif MD [Primary Care Provider] - 1-2 days Decision to Admit Reason: Admit from EC Decision Date: 05/02/20 Decision Time: 19:53
[2020-05-02 18:18] LABS: Albumin 3.7 g/dL (3.5-5.0); Calcium 8.8 mg/dL (8.4-10.2); Magnesium 1.8 mg/dL (1.6-2.3); Total Bilirubin 0.6 mg/dL (0.2-1.3); Total Protein 6.4 g/dL (6.3-8.2)
[2020-05-02 18:36] LABS: Potassium 2.7 mmol/L (3.5-5.1)
[2020-05-02 18:37] LABS: Anisocytosis Slight; Basophils % (A) 0 %; Eosinophils % (A) 0 %; HCT 28.3 % (34.0-46.0); HGB 9.6 gm/dL (11.4-16.0); Lymphocytes # (A) 1.2 k/uL (1.0-4.8); Lymphocytes % (A) 15 %; MCH 33.7 pg (25.0-35.0); MCV 99.1 fL (80.0-100.0); Macrocytosis Slight; Mean Platelet Volume 13.1; Monocytes # (A) 0.2 k/uL (0-1.0); Monocytes % (A) 2 %; Neutrophils % (A) 81 %; RBC 2.85 m/uL (3.80-5.40); RDW 16.8 % (11.5-15.5); WBC 7.4 k/uL (3.8-10.6)
[2020-05-02 18:46] LABS: Platelet Count 30 k/uL (150-450)
[2020-05-02 18:47] LABS: Large Platelets Present
[2020-05-02 18:48] LABS: INR 1.2 (<1.2); Prothrombin Time 12.2 sec (9.0-12.0)
[2020-05-02] MEDS ORDERED: POTASSIUM BICARBONATE/CIT AC 20 MEQ TABLET.EFF PO ONE (19:19)
[2020-05-02] MEDS ORDERED: ACETAMINOPHEN TAB 325 MG TAB PO PRN (19:50)
[2020-05-02] MEDS ORDERED: NALOXONE 0.4 MG/ML 1 ML VIAL IV PRN (19:50)
[2020-05-02] MEDS ORDERED: LORazepam 2 MG/ML INJ IV PRN (19:50)
[2020-05-02] MEDS: POTASSIUM CHLORIDE 10 MEQ in WATER FOR INJECTION 1 100ML.BAG IVPB SCH ×2 (20:07→21:23)
[2020-05-02] MEDS: SODIUM CHLORIDE 0.9% 1,000 ML IV SCH (20:08)
[2020-05-02 21:54] LABS: Appearance,Urine Cloudy (Clear); Bilirubin,Urine Negative (Negative); Blood,Urine Trace (Negative); Color,Urine Yellow; Glucose,Urine (UA) Negative (Negative); Hyaline Casts,Urine 14 /lpf (0-2); Ketones,Urine Negative (Negative); Leukocyte Esterase,Urine Large (Negative); Mucus,Urine Rare /hpf; Nitrite,Urine Negative (Negative); Protein,Urine 1+ (Negative); RBC,Urine 1 /hpf (0-5); Specific Gravity,Urine 1.016 (1.001-1.035); Squamous Epithelial Cell,Urine 1 /hpf (0-4); Urobilinogen,Urine <2.0 mg/dL (<2.0); WBC,Urine 61 /hpf (0-5)
[2020-05-02] MEDS: OLANZapine 5 MG TAB PO SCH (22:18)
[2020-05-02] MEDS ORDERED: PROCHLORPERAZINE 10 MG TAB PO PRN (22:47)
[2020-05-02] MEDS ORDERED: LOPERAMIDE 2 MG CAP PO SCH (23:00)
[2020-05-03] MEDS: DIPHENOX-ATROP 2.5-0.025 MG 1 EACH TAB PO SCH ×8 (00:29→21:35)
[2020-05-03] MEDS: POTASSIUM CHLORIDE 10 MEQ in WATER FOR INJECTION 1 100ML.BAG IVPB SCH ×2 (00:30→01:00)
[2020-05-03] MEDS: LOPERAMIDE 2 MG CAP PO SCH ×7 (04:45→21:30)
[2020-05-03] MEDS: SODIUM CHLORIDE 0.9% 1,000 ML IV SCH (05:43)
[2020-05-03 08:03] LABS: INR 1.2 (<1.2)
[2020-05-03 08:19] LABS: Partial Thromboplastin Time 21.1 sec (22.0-30.0)
[2020-05-03] MEDS: TAMOXIFEN 10 MG TAB PO SCH (08:27)
[2020-05-03] MEDS: ESCITALOPRAM 10 MG TAB PO SCH (08:29)
[2020-05-03] MEDS: MULTIVITAMINS, THERA 1 EACH TAB PO SCH (08:29)
[2020-05-03] MEDS: FOLIC ACID-VIT B COMPLEX-VIT C 1 CAP PO SCH (08:29)
[2020-05-03] MEDS: CHOLECALCIFEROL 25 MCG (1000 IU) TABLET PO SCH (08:30)
[2020-05-03] MEDS: CYANOCOBALAMIN 500 MCG TAB PO SCH (08:31)
[2020-05-03] MEDS ORDERED: MAGNESIUM PO SCH (09:00)
[2020-05-03] MEDS ORDERED: CALCIUM PO SCH (09:00)
[2020-05-03] MEDS ORDERED: PANTOPRAZOLE 40 MG/10 ML VIAL IV SCH (09:00)
[2020-05-03 12:16] LABS: African American GFR (CKD) 50.2 (60.0-200.0); Albumin 3.8 g/dL (3.80-4.90); Albumin/Globulin Ratio 1.9 (1.60-3.17); Anion Gap 10.6 mmol/L (4.00-12.00); BUN/Creat Ratio 26.92 Ratio (12.00-20.00); Calcium 8.6 mg/dL (8.7-10.3); Carbon Dioxide 22.4 mmol/L (21.6-31.8); Magnesium 1.6 mg/dL (1.5-2.4); Non-African American GFR(CKD) 43.3 (60.0-200.0); Potassium 2.9 mmol/L (3.5-5.5); Total Bilirubin 0.9 mg/dL (0.3-1.2); Total Protein 5.8 g/dL (6.2-8.2)
--- NOTE | 2020-05-03 12:36 | P.CONS ---
History of Present Illness - Reason for Consult Consult date: 05/02/20 Metastatic Colon Cancer Requesting physician: Conor Landon - Chief Complaint Nausea, Vomiting, Diarrhea - History of Present Illness Dilma is a very pleasant female well known to our practice, primary oncologist Dr. Eddie James. Most recently she has been undergoing chemotherapy with FOLFOXIRI and Zirabev. The past couple cycles she has been experiencing worsening nausea and vomiting and diarrhea. Recently requiring hospitalization. She states she has persistent nausea the past 4 weeks, then after chemo the persistent vomiting and diarrhea starts. She is unable to control the nausea and/or vomiting with PO antiemetics at home (zofran and compazine) Oncologic History On routine mammogram done on 06/23/17, the patient was noted to have 2 masses on the left, the first at anterior depth in the upper outer quadrant measuring 4 mm and the second also in the upper outer quadrant in the middle left measuring 5-6 L. Regional calcifications are also seen in the right upper central, slightly inner breast at 12:30-1 o'clock position. Additional confirmatory imaging was done on 06/26/17, revealing large area of pleomorphic calcification in the upper central right breast about 10.5 cm from the nipple, and multiple foci of pleomorphic microcalcifications in the upper central and outer breast on the left. Ultrasound was done on the same day, revealing a 0.3 x 0.4 x 0.4 cm cystic benign appearing lesion at 3:00 a 0.7 x 0.6 x 0.4 cm cystic benign lesion at 3:00 on the left. Right breast ultrasound showed a focal area of concern in the retro-areolar region. The patient had bilateral stereotactic core biopsy showing fibrocystic changes on the right, and focal atypical lobular hyperplasia on the left, on 07/16/17. She then proceeded to left breast biopsy with needle localization on 08/12/17. This revealed a low-grade DCIS, 7 mm by direct measurement, less than 1 mm from the inked margin. the tumor was strongly ER/ND positive. the patient was thus referred here for further evaluation and recommendations. She denied any prior breast biopsies. Her last mammogram before this one had been several years before. We discussed having additional excision per protocol, or proceeding straight to RT , based on the small size and low risk profile. She ultimately decided on the latter. She completed RT on 10/30/17. She then started Tamoxifen She had an elective colonoscopy on 12/18/17, revealing a partially obstructing lesion in the mid ascending colons, beyond which the scope could not be passed. The pathology was positive for adenoca. She had a rt hemicolectomy on 01/06/18 , revealing a 4 cm , grade II, T 3 tumor with 0/23/nodes positive. She had an Oncotype colon done, which revealed a score of 22, with a 14% chance of 3 year recurrence, and 5 % reduction with 5FU/LV, and an additional 2 % with 5FU/Oxali. After detailed discussion, she decided to take Xeloda. SHe started the same on 02/23/17, and is s/p 2 cycles 04/27/18-Pt here today for f/u after prolonged hospitailzation after C 2, 03/26/18-04/16/18 for grade 4 SE of diarrhea, PPE and mucositis that developed after completion of her 2nd cycle of adjuvant xeloda (8 planned). Her SE were progressive during admit, she did require TPN briefly. Post discharge she has been doing well, 1 episode of diarrhea yesterday, taking antidiarrheals PRN, skin and mouth are healed, she has an appetite again, feels much better, no other c/o on a 14 point ROS. As above. The pt was started back on Xeloda with 50% dose reduction , 1000 mg BID and is s/p 3 cycles Dose was increased to 1300 mg BID at her visit on 07/01/18. She is s/p 3cycles She thus completed a total of 8 cycles, with the above, on 08/30/18. Based on the pattern of her side effects, she did not futher dose increase beyond the 1300 BID Colonoscopy in 01/04 revealed 2 polyps which were remioved, with 2 yr f/u recommended. She had a senior field engineer exam with D & C in 10/04 for thickened uterine lining, which was negative. CT in 08/05 showed a new 5.2 cm ovarian mass on the left the patient was referred to [employer]ISTING [employer]INE [employer]PER[employer] oncology, Dr. Barakat at [facility]. She underwent resection with bilateral salpingo-oophorectomy and total abdominal hysterectomy laparoscopically on 09/01/19. Final pathology revealed the left ovarian mass to be consistent with colon primary. PET scan subsequently from 10/05 was negative for any residual uptake. She was PD-1 < 1% She was started on FOLFOX with 50% 5 FU dose reduction, on 10/26/19, and is s/p 4 cycles Additional biomarker testing revealed MSI stable, KRAS wild type and BRAF V600E positive She was seen at [facility], and it was recommended to change her regimen to FOLFOXIRI + jack. She is status post 6 cycles of the same (total 10) She was admitted with acute choloecystitis on 01/21/20. She was initially treated conservatively, and then had laparoscopic cholecystectomy on 02/02/20 ( appropriate delay due to VEGF MoAB use) she then resumed chemotherapy after her visit in the office on 03/04/20. Past Medical History Past Medical History: Cancer, GERD/Reflux, Hypertension Additional Past Medical History / Comment(s): LT BREAST CANCER, colon cancer stage II-METS TO OVARIES-CHEMO ON HOLD UNITL AFTER PROCEDURE, GALLBLADDER DISORDER, History of Any Multi-Drug Resistant Organisms: None Reported Past Surgical History: Bowel Resection, Breast Surgery, Hysterectomy Additional Past Surgical History / Comment(s): LT BREAST LUMPECTOMY-RADIATION, COLONOSCOPY, HAS PORT A CATH Past Anesthesia/Blood Transfusion Reactions: No Reported Reaction Past Psychological History: No Psychological Hx Reported Smoking Status: Former smoker Past Alcohol Use History: None Reported Past Drug Use History: None Reported - Past Family History Mother Family Medical History: COPD, Dementia Father Family Medical History: AFIB, Cancer Additional Family Medical History / Comment(s): Lung cancer. Sister(s) Family Medical History: Cancer Additional Family Medical History / Comment(s): VOCAL CORD CANCER Medications and Allergies Home Medications Medication Instructions Recorded Confirmed Type Cyanocobalamin [Vitamin B-12] 500 mcg PO DAILY 07/10/17 05/02/20 History Multivitamins, Thera [Multivitamin 1 tab PO DAILY 07/10/17 05/02/20 History (formulary)] Tamoxifen Citrate 20 mg PO DAILY 12/16/17 05/02/20 History Calcium And Magnesium Oral Tab 1 tab PO DAILY 01/20/20 05/02/20 History (Unknown Strength) Escitalopram Oxalate [Lexapro] 10 mg PO DAILY 01/20/20 05/02/20 History lisinopriL [Prinivil] 20 mg PO BID@0900,1800 01/20/20 05/02/20 History Cholecalciferol [Vitamin D3 (25 50 mcg PO DAILY 05/02/20 05/02/20 History Mcg = 1000 Iu)] Cyanocobalamin [Vitamin B-12] 500 mcg PO DAILY 05/02/20 05/02/20 History Diphenox-Atrop 2.5-0.025 mg 1 tab PO Q3H 05/02/20 05/02/20 History [Lomotil] Loperamide [Imodium] 2 mg PO Q3H 05/02/20 05/02/20 History Prochlorperazine [Compazine] 10 mg PO TID PRN 05/02/20 05/02/20 History Vitamin B Complex 1 cap PO DAILY 05/02/20 05/02/20 History Allergies Allergy/AdvReac Type Severity Reaction Status Date / Time No Known Allergies Allergy Verified 05/02/20 18:35 Physical Exam Vitals: Vital Signs Temp Pulse Resp BP Pulse Ox 05/02/20 18:41 76 18 137/66 94 L 05/02/20 16:53 98.1 F 105 H 18 112/68 99 Intake and Output 05/02/20 05/02/20 05/02/20 06:59 14:59 22:59 Other: Weight 69.853 kg - Constitutional General appearance: no acute distress - EENT Eyes: EOMI, PERRLA ENT: hearing grossly normal, normal oropharynx - Neck Neck: no lymphadenopathy Thyroid: bilateral: normal size - Respiratory Respiratory: bilateral: CTA - Cardiovascular Rhythm: regular Heart sounds: normal: S1, S2 - Gastrointestinal General gastrointestinal: normal bowel sounds, soft Localized gastrointestinal: tender: RUQ - Integumentary Integumentary: normal - Neurologic Neurologic: CNII-XII intact - Musculoskeletal Musculoskeletal: strength equal bilaterally - Psychiatric Psychiatric: A&O x's 3, appropriate affect Results CBC & Chem 7: 05/03/20 06:43 05/04/20 06:14 Labs: Abnormal Lab Results - Last 24 Hours (Table) 05/02/20 05/02/20 05/02/20 Range/Units 17:52 17:52 17:52 RBC 2.85 L (3.80-5.40) m/uL Hgb 9.6 L (11.4-16.0) gm/dL Hct 28.3 L (34.0-46.0) % RDW 16.8 H (11.5-15.5) % Plt Count 30 L (150-450) k/uL PT 12.2 H (9.0-12.0) sec INR 1.2 H (<1.2) APTT 20.0 L (22.0-30.0) sec Sodium 135 L (137-145) mmol/L Potassium 2.7 L* (3.5-5.1) mmol/L BUN 43 H (7-17) mg/dL Creatinine 1.69 H (0.52-1.04) mg/dL Glucose 148 H (74-99) mg/dL AST 114 H (14-36) U/L ALT 139 H (4-34) U/L Alkaline Phosphatase 231 H (38-126) U/L Chest x-ray: report reviewed Assessment and Plan (1) RUKHSANA (acute kidney injury) Current Visit: Yes Status: Acute Code(s): N17.9 - ACUTE KIDNEY FAILURE, UNSPECIFIED SNOMED Code(s): 60926274 (2) Dehydration Current Visit: Yes Status: Acute Priority: High Code(s): E86.0 - DEHYDRATION SNOMED Code(s): 38772666 (3) Hypokalemia Current Visit: Yes Status: Acute Code(s): E87.6 - HYPOKALEMIA SNOMED Code(s): 76560095 (4) Antineoplastic chemotherapy induced anemia Current Visit: No Status: Acute Priority: Medium Code(s): D64.81 - ANEMIA DUE TO ANTINEOPLASTIC CHEMOTHERAPY; T45.1X5A - ADVERSE EFFECT OF ANTINEOPLASTIC AND IMMUNOSUP DRUGS, INIT SNOMED Code(s): 910589946 (5) Colon cancer Current Visit: No Status: Acute Priority: High Code(s): C18.9 - MALIGNANT NEOPLASM OF COLON, UNSPECIFIED SNOMED Code(s): 160130832 (6) Drug-induced diarrhea Current Visit: No Status: Acute Priority: High Code(s): K52.1 - TOXIC GASTROENTERITIS AND COLITIS SNOMED Code(s): 149021415 (7) Breast cancer Current Visit: No Status: Chronic Priority: Medium Code(s): C50.919 - MALIGNANT NEOPLASM OF UNSP SITE OF UNSPECIFIED FEMALE BREAST SNOMED Code(s): 310846339 Plan: Assessment and Recommendations: Please keep NPO for now Add Questran Change Fluids to D5.9 Physician Attest: I have completed the full history and physical and agree with above dictation, dictated as a scribe
[2020-05-03 12:44] LABS: Basophils # (A) 0.06 X 10*3/uL (0.00-0.10); Eosinophils # (A) 0.03 X 10*3/uL (0.04-0.35); Eosinophils % (A) 0.5 %; HCT 25.4 % (37.2-46.3); HGB 8.4 g/dL (12.0-15.0); Lymphocytes # (A) 1.33 X 10*3/uL (0.90-5.00); Lymphocytes % (A) 22.1 %; MCH 33.7 pg (27.0-32.0); MCHC 33.1 g/dL (32.0-37.0); Mean Platelet Volume 13.3 fL (9.5-12.2); Monocytes # (A) 0.49 X 10*3/uL (0.20-1.00); Monocytes % (A) 8.1 %; Neutrophils # (A) 4.04 X 10*3/uL (1.80-7.70); Neutrophils % (A) 67.1 %; Platelet Count 17 X 10*3/uL (140-440); RBC 2.49 X 10*6/uL (4.10-5.20); RDW 16.9 % (11.5-14.5); WBC 6.02 X 10*3/uL (4.50-10.00)
[2020-05-03] MEDS ORDERED: DEXTROSE 5%-0.9% NACL 1,000 ML with POTASSIUM CHLORIDE 20 MEQ IV SCH ×2 (12:45)
--- NOTE | 2020-05-03 12:48 | P.HPIM ---
History of Present Illness H&P Date: 05/03/20 Chief Complaint: Nausea, vomiting, diarrhea HISTORY OF PRESENT ILLNESS This is a 62-year-old female patient of Dr. Asif with past medical h istory of hypertension, left-sided breast cancer status post radiation therapy, colon cancer status post hemicolectomy in December 2017. Please see oncology note regarding history. Status post bowel resection with bilateral salpingo- oophorectomy and total abdominal hysterectomy laparoscopically on 09/01/19, pathology consistent with colon primary. He is status post left scalp cholecystectomy in January 2020. Patient has had nausea, vomiting and diarrhea for the past month. Last chemotherapy 1 week ago. Patient received IV hydration at [facility] and was discharged home but she went home and continued to have vomiting and feeling sick. She received a call from Mia Colmenares [employer] and w as instructed to come into the hospital for further evaluation and treatment due to abnormal kidney and liver labs. Patient presented to [facility] emergency center. Patient was afebrile, heart rate 105, blood pressure 112/60, pulse ox 99% on room air. EKG was in normal sinus with no acute ST changes. W BC 7.4, hemoglobin 9.6, platelet count 30. Sodium 135, potassium 2.7 chloride 102, CO2 22, BUN 43 and creatinine 1.69. Blood sugar 148. Magnesium 1.8. Total bilirubin 0.6, AST 114, ALT 139, alkaline phosphatase 231. Amylase and lipase normal. Lactic acid 1.2. A C. difficile toxin negative. Coronavirus not detected. Patient was started on Lomotil, potassium was replaced and patient received 1 L of IV fluid, admitted to the oncology unit and consult with oncology. REVIEW OF SYSTEMS Constitutional: No fever, no chills, no night sweats. Minimal weight loss. No weakness, fatigue or lethargy. No daytime sleepiness. EENT: No headache. No blurred vision or double vision, no loss of vision. No loss of Hearing, no ringing in the ears, no dizziness. No nasal drainage or congestion. No epistaxis. No sore throat. Lungs: No shortness of breath, cough, no sputum production. No wheezing. Cardiovascular: No chest pain, no lower extremity edema. No palpitations. No paroxysmal nocturnal dyspnea. No orthopnea. No lightheadedness or dizziness. No syncopal episodes. Abdominal: Reports abdominal pain. Reports nausea, reports vomiting. Reports diarrhea. No constipation. No bloody or tarry stools reports loss of appetite. Genitourinary: No dysuria, increased frequency, urgency. No urinary retention. Musculoskeletal: No myalgias. No muscle weakness, no gait dysfunction, no frequent falls. No back pain. No neck pain. Integumentary: No wounds, no lesions. No rash or pruritus. No unusual bruising. No change in hair or nails. Neurologic: No aphasia. No facial droop. No change in mentation. No head injury. No headache. No paralysis. No paresthesia. Psychiatric: No depression. No anxiety. No mood swings. Endocrine: No abnormal blood sugars. SOCIAL HISTORY Patient was a smoker and quit in December 2017. No alcohol use. No marijuana or illicit drug use. Patient lives alone and is a . Patient's daughter has been helping her at home. FAMILY HISTORY Mother is in her 80s with history of COPD and dementia. Father is in his 80s with history of atrial fibrillation. Patient has 1 sister with no major medical problems. Patient does not have any brothers. Patient has 2 daughters with no major medical problems. PHYSICAL EXAMINATION Gen: This is a 64-year-old female. She is sitting up in bed and appears to be comfortable and in no acute distress. HEENT: Head is atraumatic, normocephalic. Pupils equal, round. Sclerae is anicteric. NECK: Supple. No JVD. No lymphadenopathy. No thyromegaly. LUNGS: Clear to auscultation. No wheezes or rhonchi. No intercostal retractions. HEART: Regular rate and rhythm. No murmur. ABDOMEN: Soft. Bowel sounds are present. No masses. No tenderness. EXTREMITIES: No pedal edema. No calf tenderness. Dorsalis pedis +2 bilaterally. NEUROLOGICAL: Patient is awake, alert and oriented x3. Cranial nerves 2 through 12 are grossly intact. ASSESSMENT AND PLAN 1. Acute kidney injury secondary to poor oral intake, vomiting or diarrhea most likely secondary to chemotherapy. Continue IV fluids at 125 mL per hour, recheck renal function. 2. Severe hypokalemia secondary to dehydration, status post replacement. Continue to monitor 3. Bicytopenia with anemia and thrombocytopenia secondary to chemotherapy. 4. Acute urinary tract infection suspected. Patient denies dysuria. Patient will be on ceftriaxone until cultures finalized. 5. Elevated liver function tests. 6. Metastatic colon cancer status post hysterectomy and bilateral salpingo- oophorectomy in August and currently undergoing chemotherapy. Consult with oncology. 7. History of colon cancer status post hemicolectomy in December [address] Kulkarni. 8. Hypertension. Hold lisinopril 20 mg twice daily. 9. History of breast cancer status post lumpectomy and radiation. Continue tamoxifen. 10. DVT prophylaxis. Hold heparin secondary to thrombocytopenia. 11. GI prophylaxis. Protonix. Patient will be admitted to the hospital for a minimum of 2 night stay. DISCHARGE PLAN Home. Impression and plan of care have been directed as dictated by the signing physician. Opal Moreno nurse practitioner acting as scribe for signing physician. Past Medical History Past Medical History: Cancer, GERD/Reflux, Hypertension Additional Past Medical History / Comment(s): LT BREAST CANCER, colon cancer stage II-METS TO OVARIES-CHEMO ON HOLD UNITL AFTER PROCEDURE, GALLBLADDER DIS ORDER, History of Any Multi-Drug Resistant Organisms: None Reported Past Surgical History: Bowel Resection, Breast Surgery, Hysterectomy Additional Past Surgical History / Comment(s): LT BREAST LUMPECTOMY-RADIATION, COLONOSCOPY, HAS PORT A CATH Past Anesthesia/Blood Transfusion Reactions: No Reported Reaction Past Psychological History: No Psychological Hx Reported Smoking Status: Former smoker Past Alcohol Use History: None Reported Past Drug Use History: None Reported - Past Family History Mother Family Medical History: COPD, Dementia Father Family Medical History: AFIB, Cancer Additional Family Medical History / Comment(s): Lung cancer. Sister(s) Family Medical History: Cancer Additional Family Medical History / Comment(s): VOCAL CORD CANCER Medications and Allergies Home Medications Medication Instructions Recorded Confirmed Type Cyanocobalamin [Vitamin B-12] 500 mcg PO DAILY 07/10/17 05/02/20 History Multivitamins, Thera [Multivitamin 1 tab PO DAILY 07/10/17 05/02/20 History (formulary)] Tamoxifen Citrate 20 mg PO DAILY 12/16/17 05/02/20 History Calcium And Magnesium Oral Tab 1 tab PO DAILY 01/20/20 05/02/20 History (Unknown Strength) Escitalopram Oxalate [Lexapro] 10 mg PO DAILY 01/20/20 05/02/20 History lisinopriL [Prinivil] 20 mg PO BID@0900,1800 01/20/20 05/02/20 History Cholecalciferol [Vitamin D3 (25 50 mcg PO DAILY 05/02/20 05/02/20 History Mcg = 1000 Iu)] Cyanocobalamin [Vitamin B-12] 500 mcg PO DAILY 05/02/20 05/02/20 History Diphenox-Atrop 2.5-0.025 mg 1 tab PO Q3H 05/02/20 05/02/20 History [Lomotil] Loperamide [Imodium] 2 mg PO Q3H 05/02/20 05/02/20 History Prochlorperazine [Compazine] 10 mg PO TID PRN 05/02/20 05/02/20 History Vitamin B Complex 1 cap PO DAILY 05/02/20 05/02/20 History Allergies Allergy/AdvReac Type Severity Reaction Status Date / Time No Known Allergies Allergy Verified 05/02/20 18:35 Physical Exam Vitals: Vital Signs Temp Pulse Pulse Resp BP BP Pulse Ox 05/03/20 04:59 98.0 F 87 16 135/76 99 05/03/20 00:11 98.0 F 92 16 147/73 100 05/02/20 23:27 92 16 05/02/20 21:07 80 18 149/73 99 05/02/20 18:41 76 18 137/66 94 L 05/02/20 16:53 98.1 F 105 H 18 112/68 99 Intake and Output 05/02/20 05/03/20 05/03/20 22:59 06:59 14:59 Intake Total 1000 Balance 1000 Intake: Intake, IV Titration 1000 Amount Potassium Chloride 10 meq 100 In Water For Injection 1 100ml.bag @ 100 mls/hr IVPB Q1HR [facility] Rx#: [id number] Sodium Chloride 0.9% 1, 900 000 ml @ 100 mls/hr IV . Q10H [facility] Rx#:[id number] Other: # Bowel Movements 1 # Em[place] 0 Weight 69.853 kg Results CBC & Chem 7: 05/02/20 17:52 05/03/20 06:43 Labs: Abnormal Lab Results - Last 24 Hours (Table) 05/02/20 05/02/20 05/02/20 Range/Units 17:52 17:52 17:52 RBC 2.85 L (3.80-5.40) m/uL Hgb 9.6 L (11.4-16.0) gm/dL Hct 28.3 L (34.0-46.0) % RDW 16.8 H (11.5-15.5) % Plt Count 30 L (150-450) k/uL PT 12.2 H (9.0-12.0) sec INR 1.2 H (<1.2) APTT 20.0 L (22.0-30.0) sec Sodium 135 L (137-145) mmol/L Potassium 2.7 L* (3.5-5.1) mmol/L BUN 43 H (7-17) mg/dL Creatinine 1.69 H (0.52-1.04) mg/dL Glucose 148 H (74-99) mg/dL AST 114 H (14-36) U/L ALT 139 H (4-34) U/L Alkaline Phosphatase 231 H (38-126) U/L Urine Appearance (Clear) Urine Protein (Negative) Urine Blood (Negative) Ur Leukocyte Esterase (Negative) Urine WBC (0-5) /hpf Hyaline Casts (0-2) /lpf Urine Mucus (None) /hpf 05/02/20 Range/Units 21:27 RBC (3.80-5.40) m/uL Hgb (11.4-16.0) gm/dL Hct (34.0-46.0) % RDW (11.5-15.5) % Plt Count (150-450) k/uL PT (9.0-12.0) sec INR (<1.2) APTT (22.0-30.0) sec Sodium (137-145) mmol/L Potassium (3.5-5.1) mmol/L BUN (7-17) mg/dL Creatinine (0.52-1.04) mg/dL Glucose (74-99) mg/dL AST (14-36) U/L ALT (4-34) U/L Alkaline Phosphatase (38-126) U/L Urine Appearance Cloudy H (Clear) Urine Protein 1+ H (Negative) Urine Blood Trace H (Negative) Ur Leukocyte Esterase Large H (Negative) Urine WBC 61 H (0-5) /hpf Hyaline Casts 14 H (0-2) /lpf Urine Mucus Rare H (None) /hpf Microbiology - Last 24 Hours (Table) 05/02/20 21:27 Urine Culture - Preliminary Urine,Voided Thrombosis Risk Factor Assmnt - Choose All That Apply Any of the Below Risk Factors Present?: No Other Risk Factors: Yes Each Risk Factor Represents 2 Points: Age 61-74 years Thrombosis Risk Factor Assessment Total Risk Factor Score: 2 Thrombosis Risk Factor Assessment Level: Low Risk
--- NOTE | 2020-05-03 13:08 | US ---
EXAMINATION TYPE: US kidneys/renal and bladder DATE OF EXAM: 05/03/2020 COMPARISON: NONE CLINICAL HISTORY: 64 year-old female acute kidney injury TECHNIQUE: Multiple sonographic images of the kidneys and bladder are obtained. FINDINGS: EXAM MEASUREMENTS: Right Kidney: 9.1 x 4.0 x 3.7 cm Left Kidney: 8.6 x 4.0 x 4.1 cm Web Development Consultant notes: Limited visualization due to overlying bowel. Right Kidney: similar size to left, limited views, no evident hydronephrosis. Left Kidney: measures small, partially obscured by bowel gas . No evident hydronephrosis. Bladder: Underdistention limits its evaluation. IMPRESSION: Limited detailed visualization of the kidneys. Slightly small size suggesting a component of chronic medical renal disease. No evident hydronephrosis.
[2020-05-03] MEDS: D5-0.9% NACL WITH KCL 20 MEQ/L 1,000 ML IV SCH ×2 (15:06→21:34)
--- NOTE | 2020-05-03 15:55 | MR ---
EXAMINATION TYPE: MR brain wo/w con DATE OF EXAM: 05/03/2020 COMPARISON: None HISTORY: Assess for mets. CONTRAST: Performed utilizing 7 mL intravenous Gadavist gadolinium contrast. TECHNIQUE: Multiplanar, multiecho imaging on a 3.0 [place] magnet is performed through the brain. Stud y is performed within 24 hours of arrival to the hospital. The craniovertebral junction is normal. The pituitary is normal. Diffusion-weighted imaging is performed. No abnormal hyperintensity is present to suggest an acute i ntracranial infarct or acute ischemic change. Some mild periventricular white matter hyperintensities present on inversion recovery weighted sequen idris, likely related to some chronic white matter ischemic change. Ventricles and sulci are appropriate for the patient age. No suspicious masses are evident. No abnormal enhancing lesions are evident. IMPRESSIONS: 1. No suspicious changes to suggest metastatic disease. 2. Mild chronic appearing periventricular white matter ischemic changes
[2020-05-03] MEDS: CHOLESTYRAMINE (WITH SUGAR) 4 GM PACKET PO SCH ×2 (16:23→17:57)
[2020-05-03] MEDS: MAG HYDROX/AL HYDROX/SIMETH 30 ML, diphenhydrAMINE ELIXIR 75 MG, LIDOCAINE VISCOUS 30 ML PO SCH ×6 (16:24→21:39)
[2020-05-03] MEDS ORDERED: Potassium Replacement Protocol 1 EACH MISC MISCELLANE PRN (17:54)
[2020-05-03] MEDS: POTASSIUM CHLORIDE 20 MEQ in WATER FOR INJECTION 1 100ML.BAG IVPB SCH ×2 (20:25→22:33)
[2020-05-03] MEDS: OLANZapine 5 MG TAB PO SCH (21:38)
[2020-05-04] MEDS: POTASSIUM CHLORIDE 20 MEQ in WATER FOR INJECTION 1 100ML.BAG IVPB SCH (00:44)
[2020-05-04] MEDS: DIPHENOX-ATROP 2.5-0.025 MG 1 EACH TAB PO SCH ×9 (00:54→22:42)
[2020-05-04] MEDS: LOPERAMIDE 2 MG CAP PO SCH ×8 (00:55→22:42)
[2020-05-04] MEDS: D5-0.9% NACL WITH KCL 20 MEQ/L 1,000 ML IV SCH ×3 (02:22→22:45)
[2020-05-04 07:18] LABS: Potassium 3.5 mmol/L (3.5-5.1)
[2020-05-04] MEDS: CHOLECALCIFEROL 25 MCG (1000 IU) TABLET PO SCH (08:59)
[2020-05-04] MEDS: PANTOPRAZOLE 40 MG/10 ML VIAL IVP SCH (08:59)
[2020-05-04] MEDS: MULTIVITAMINS, THERA 1 EACH TAB PO SCH (09:00)
[2020-05-04] MEDS: ESCITALOPRAM 10 MG TAB PO SCH (09:00)
[2020-05-04] MEDS: CYANOCOBALAMIN 500 MCG TAB PO SCH (09:00)
[2020-05-04] MEDS: FOLIC ACID-VIT B COMPLEX-VIT C 1 CAP PO SCH (09:00)
[2020-05-04] MEDS: MAG HYDROX/AL HYDROX/SIMETH 30 ML, diphenhydrAMINE ELIXIR 75 MG, LIDOCAINE VISCOUS 30 ML PO SCH ×9 (09:01→22:47)
[2020-05-04] MEDS: TAMOXIFEN 10 MG TAB PO SCH (09:01)
[2020-05-04] MEDS: CHOLESTYRAMINE (WITH SUGAR) 4 GM PACKET PO SCH ×3 (09:01→18:03)
[2020-05-04 09:20] LABS: ALT 143 U/L (4-34); AST 117 U/L (14-36); African American GFR (CKD) 71 (>60 ml/min/1.73 sqM); Albumin 2.4 g/dL (3.5-5.0); Alkaline Phosphatase 153 U/L (38-126); Anion Gap 3 mmol/L; Blood Urea Nitrogen 16 mg/dL (7-17); Carbon Dioxide 22 mmol/L (22-30); Chloride 115 mmol/L (98-107); Globulin 2.3 g/dL; Glucose 112 mg/dL (74-99); Non-African American GFR(CKD) 61 (>60 ml/min/1.73 sqM); Sodium 140 mmol/L (137-145); Total Bilirubin 0.6 mg/dL (0.2-1.3); Total Protein 4.7 g/dL (6.3-8.2)
[2020-05-04 09:27] LABS: Anisocytosis Slight; HCT 20.7 % (34.0-46.0); MCH 34.1 pg (25.0-35.0); MCHC 33.2 g/dL (31.0-37.0); MCV 102.7 fL (80.0-100.0); Macrocytosis Moderate; Mean Platelet Volume 12.8; RBC 2.02 m/uL (3.80-5.40); RDW 17.3 % (11.5-15.5); WBC 3.2 k/uL (3.8-10.6)
[2020-05-04 09:31] LABS: HGB 6.9 gm/dL (11.4-16.0); Platelet Count 9 k/uL (150-450)
--- NOTE | 2020-05-04 10:05 | US ---
EXAMINATION TYPE: US liver DATE OF EXAM: 05/04/2020 COMPARISON: NONE CLINICAL HISTORY: increased lft - ? progression. EXAM MEASUREMENTS: Liver Length: 12.6 cm Gallbladder Wall: Surgically absent CBD: 0.5 cm Right Kidney: 9.6 x 4.3 x 3.8 cm Pancreas: wnl Liver: wnl Gallbladder: Surgically absent Evidence for sonographic Tijerina's sign: no CBD: wnl Right Kidney: No hydronephrosis or masses seen Left Kidney: No hydronephrosis or masses seen IMPRESSION: 1. Normal post cholecystectomy right upper quadrant ultrasound
--- NOTE | 2020-05-04 10:27 | P.PN ---
Subjective Progress Note Date: 05/04/20 HISTORY OF PRESENT ILLNESS This is a 62-year-old female patient of Dr. Asif with past medical history of hypertension, left-sided breast cancer status post radiation therapy, colon cancer status post hemicolectomy in December 2017. Please see oncology note regarding history. Status post bowel resection with bilateral salpingo- oophorectomy and total abdominal hysterectomy laparoscopically on 09/01/19, pathology consistent with colon primary. He is status post left scalp cholecystectomy in January 2020. Patient has had nausea, vomiting and diarrhea for the past month. Last chemotherapy 1 week ago. Patient received IV hydration at [facility] and was discharged home but she went home and continued to have vomiting and feeling sick. She received a call from Mia Colmenares NP and was instructed to come into the hospital for further evaluation and treatment due to abnormal kidney and liver labs. Patient presented to [facility] emergency center. Patient was afebrile, heart rate 105, blood pressure 112/60, pulse ox 99% on room air. EKG was in normal sinus with no acute ST changes. W BC 7.4, hemoglobin 9.6, platelet count 30. Sodium 135, potassium 2.7 chloride 102, CO2 22, BUN 43 and creatinine 1.69. Blood sugar 148. Magnesium 1.8. Total bilirubin 0.6, AST 114, ALT 139, alkaline phosphatase 231. Amylase and lipase normal. Lactic acid 1.2. A C. difficile toxin negative. Coronavirus not detected. Patient was started on Lomotil, potassium was replaced and patient received 1 L of IV fluid, admitted to the oncology unit and consult with oncology. 05/04: Renal ultrasound revealed limited visualization of the kidneys. Slightly small size suggestive of chronic medical renal disease. No hydronephrosis. MRI of the brain revealed no suspicious change suggestive of metastatic disease. Mild chronic appearing periventricular white matter ischemic change. Liver ultrasound was normal post cholecystectomy. The patient states that she was still vomiting until this morning. She feels that the nausea is a little bit be tter. We did recommend trying a scopolamine patch next if she would like but wouldn't prefer to hold. We will try to advance her diet to clear liquids. She has been afebrile, heart rate 81, blood pressure 109/53, pulse ox 100% on room air. Repeat blood work reveals WBC 3.2, hemoglobin 6.9, platelet count 9. Sodium 140, potassium 3.5, chloride 115, CO2 22, BUN and creatinine 0.98. Blood sugar 112. Calcium 8.0. Total bilirubin 0.6, AST 117, ALT 143, alkaline phosphatase 153. URine culture no growth at 18 hours and ceftriaxone will be discontinued. REVIEW OF SYSTEMS Constitutional: No fever, no chills, no night sweats. Minimal weight loss. No weakness, fatigue or lethargy. No daytime sleepiness. EENT: No headache. No blurred vision or double vision, no loss of vision. No loss of Hearing, no ringing in the ears, no dizziness. No nasal drainage or congestion. No epistaxis. No sore throat. Lungs: No shortness of breath, cough, no sputum production. No wheezing. Cardiovascular: No chest pain, no lower extremity edema. No palpitations. No paroxysmal nocturnal dyspnea. No orthopnea. No lightheadedness or dizziness. No syncopal episodes. Abdominal: Reports abdominal pain. Reports nausea, improved vomiting. Reports diarrhea. No constipation. No bloody or tarry stools reports loss of appetite. Genitourinary: No dysuria, increased frequency, urgency. No urinary retention. Musculoskeletal: No myalgias. Reports muscle weakness, no gait dysfunction, no frequent falls. No back pain. No neck pain. Integumentary: No wounds, no lesions. No rash or pruritus. No unusual bruising. No change in hair or nails. Neurologic: No aphasia. No facial droop. No change in mentation. No head injury. No headache. No paralysis. No paresthesia. Psychiatric: No depression. No anxiety. No mood swings. Endocrine: No abnormal blood sugars. PHYSICAL EXAMINATION Gen: This is a 64-year-old female. She is sitting up in bed and appears to be comfortable and in no acute distress. HEENT: Head is atraumatic, normocephalic. Pupils equal, round. Sclerae is anicteric. NECK: Supple. No JVD. No lymphadenopathy. No thyromegaly. LUNGS: Clear to auscultation. No wheezes or rhonchi. No intercostal retractions. HEART: Regular rate and rhythm. No murmur. ABDOMEN: Soft. Bowel sounds are present. No masses. No tenderness. EXTREMITIES: No pedal edema. No calf tenderness. Dorsalis pedis +2 bilaterally. NEUROLOGICAL: Patient is awake, alert and oriented x3. Cranial nerves 2 through 12 are grossly intact. ASSESSMENT AND PLAN 1. Acute kidney injury secondary to poor oral intake, vomiting or diarrhea most likely secondary to chemotherapy. Continue IV fluids at 125 mL per hour, rec heck renal function. 2. Severe hypokalemia secondary to dehydration, status post replacement. Con tinue to monitor 3. Bicytopenia with anemia and thrombocytopenia secondary to chemotherapy. Oncology has ordered transfusion of platelets and packed RBCs. 4. Acute urinary tract infection ruled out. 5. Elevated liver function tests. 6. Metastatic colon cancer status post hysterectomy and bilateral salpingo- oophorectomy in August and currently undergoing chemotherapy. Consult with oncology. 7. History of colon cancer status post hemicolectomy in December [address] Kulkarni. 8. Hypertension. Hold lisinopril 20 mg twice daily. 9. History of breast cancer status post lumpectomy and radiation. Continue tamoxifen. 10. DVT prophylaxis. Hold heparin secondary to thrombocytopenia. 11. GI prophylaxis. Protonix. DISCHARGE PLAN Home most likely early next week. Impression and plan of care have been directed as dictated by the signing physician. Opal Moreno nurse practitioner acting as scribe for signing physician. Objective - Vital Signs Vital signs: Vital Signs Temp 97.9 F 05/04/20 05:14 Pulse 81 05/04/20 05:14 Resp 14 05/04/20 05:14 BP 109/53 05/04/20 05:14 Pulse Ox 100 05/04/20 05:14 Intake & Output 05/03/20 05/04/20 05/04/20 18:59 06:59 18:59 Intake Total 1275 1550 Balance 1275 1550 Intake: Intake, IV Titration 1275 1550 Amount D5-0.9% NaCl with KCl 20 375 1250 Meq/l 1,000 ml @ 125 mls/ hr IV .Q8H [facility] Rx#: [id number] Potassium Chloride 20 meq 300 In Water For Injection 1 100ml.bag @ 50 mls/hr IVPB Q2H [facility] Rx#: [id number] Sodium Chloride 0.9% 1, 900 000 ml @ 100 mls/hr IV . Q10H [facility] Rx#:[id number] Other: # Voids 4 # Bowel Movements 4 - Labs CBC & Chem 7: 05/04/20 06:15 05/04/20 06:14 Labs: Abnormal Lab Results - Last 24 Hours (Table) 05/03/20 05/03/20 05/03/20 Range/Units 06:43 06:43 06:43 RBC 2.49 L (4.10-5.20) X 10*6/uL Hgb 8.4 L (12.0-15.0) g/dL Hct 25.4 L (37.2-46.3) % MCV 102.0 H (80.0-97.0) fL MCH 33.7 H (27.0-32.0) pg RDW 16.9 H (11.5-14.5) % Plt Count 17 L* (140-440) X 10*3/uL Plt Count Comment A MPV 13.3 H (9.5-12.2) fL Immature Gran # 0.07 H (0.00-0.04) X 10*3/uL Eosinophils # 0.03 L (0.04-0.35) X 10*3/uL Immature Plt Fraction 18.9 H (1.1-6.1) % INR 1.2 H (<1.2) APTT 21.1 L (22.0-30.0) sec Potassium 2.9 L (3.5-5.5) mmol/L BUN 35.0 H (9.0-27.0) mg/dL Est GFR (CKD-EPI)AfAm 50.2 L (60.0-200.0) Est GFR (CKD-EPI)NonAf 43.3 L (60.0-200.0) BUN/Creatinine Ratio 26.92 H (12.00-20.00) Ratio Calcium 8.6 L (8.7-10.3) mg/dL AST 122 H (13-35) U/L ALT 169 H (8-44) U/L Alkaline Phosphatase 238 H (41-126) U/L Total Protein 5.8 L (6.2-8.2) g/dL Microbiology - Last 24 Hours (Table) 05/02/20 21:27 Urine Culture - Final Urine,Voided 05/02/20 22:22 Blood Culture - Preliminary Blood No Growth after 24 hours 05/02/20 17:30 Blood Culture - Preliminary Blood No Growth after 24 hours 05/02/20 01:15 Stool Culture - Preliminary Stool
[2020-05-04] MEDS: BUDESONIDE ER 3 MG CAPSULE.ER PO SCH (12:36)
--- NOTE | 2020-05-04 18:03 | P.PN ---
Subjective Progress Note Date: 05/04/20 Principal diagnosis: metastatic colon Platelet and PRBC transfusion today. Tolerating clears, mild diarrhea today. Unable to tolerate questran. Objective - Vital Signs Vital signs: Vital Signs Temp 97.9 F 05/04/20 05:14 Pulse 81 05/04/20 05:14 Resp 14 05/04/20 05:14 BP 109/53 05/04/20 05:14 Pulse Ox 100 05/04/20 05:14 Intake & Output 05/03/20 05/04/20 05/04/20 18:59 06:59 18:59 Intake Total 1275 1550 Balance 1275 1550 Intake: Intake, IV Titration 1275 1550 Amount D5-0.9% NaCl with KCl 20 375 1250 Meq/l 1,000 ml @ 125 mls/ hr IV .Q8H [facility] Rx#: [id number] Potassium Chloride 20 meq 300 In Water For Injection 1 100ml.bag @ 50 mls/hr IVPB Q2H [facility] Rx#: [id number] Sodium Chloride 0.9% 1, 900 000 ml @ 100 mls/hr IV . Q10H [facility] Rx#:[id number] Other: # Voids 4 # Bowel Movements 4 - Exam - Constitutional General appearance: no acute distress - EENT Eyes: EOMI, PERRLA ENT: hearing grossly normal, normal oropharynx - Neck Neck: no lymphadenopathy Thyroid: bilateral: normal size - Respiratory Respiratory: bilateral: CTA - Cardiovascular Rhythm: regular Heart sounds: normal: S1, S2 - Gastrointestinal General gastrointestinal: normal bowel sounds, soft Localized gastrointestinal: tender: RUQ - Integumentary Integumentary: normal - Neurologic Neurologic: CNII-XII intact - Musculoskeletal Musculoskeletal: strength equal bilaterally - Psychiatric Psychiatric: A&O x's 3, appropriate affect - Labs CBC & Chem 7: 05/04/20 06:15 05/04/20 06:14 Labs: Abnormal Lab Results - Last 24 Hours (Table) 05/03/20 05/03/20 05/03/20 Range/Units 06:43 06:43 06:43 RBC 2.49 L (4.10-5.20) X 10*6/uL Hgb 8.4 L (12.0-15.0) g/dL Hct 25.4 L (37.2-46.3) % MCV 102.0 H (80.0-97.0) fL MCH 33.7 H (27.0-32.0) pg RDW 16.9 H (11.5-14.5) % Plt Count 17 L* (140-440) X 10*3/uL Plt Count Comment A MPV 13.3 H (9.5-12.2) fL Immature Gran # 0.07 H (0.00-0.04) X 10*3/uL Eosinophils # 0.03 L (0.04-0.35) X 10*3/uL Immature Plt Fraction 18.9 H (1.1-6.1) % INR 1.2 H (<1.2) APTT 21.1 L (22.0-30.0) sec Potassium 2.9 L (3.5-5.5) mmol/L BUN 35.0 H (9.0-27.0) mg/dL Est GFR (CKD-EPI)AfAm 50.2 L (60.0-200.0) Est GFR (CKD-EPI)NonAf 43.3 L (60.0-200.0) BUN/Creatinine Ratio 26.92 H (12.00-20.00) Ratio Calcium 8.6 L (8.7-10.3) mg/dL AST 122 H (13-35) U/L ALT 169 H (8-44) U/L Alkaline Phosphatase 238 H (41-126) U/L Total Protein 5.8 L (6.2-8.2) g/dL Microbiology - Last 24 Hours (Table) 05/02/20 21:27 Urine Culture - Final Urine,Voided 05/02/20 22:22 Blood Culture - Preliminary Blood No Growth after 24 hours 05/02/20 17:30 Blood Culture - Preliminary Blood No Growth after 24 hours 05/02/20 01:15 Stool Culture - Preliminary Stool Assessment and Plan (1) RUKHSANA (acute kidney injury) Current Visit: Yes Status: Acute Code(s): N17.9 - ACUTE KIDNEY FAILURE, UNSPECIFIED SNOMED Code(s): 14465375 (2) Dehydration Current Visit: Yes Status: Acute Priority: High Code(s): E86.0 - DEHYDRATION SNOMED Code(s): 81995904 (3) Hypokalemia Current Visit: Yes Status: Acute Code(s): E87.6 - HYPOKALEMIA SNOMED Code(s): 51844751 (4) Antineoplastic chemotherapy induced anemia Current Visit: No Status: Acute Priority: Medium Code(s): D64.81 - ANEMIA DUE TO ANTINEOPLASTIC CHEMOTHERAPY; T45.1X5A - ADVERSE EFFECT OF ANTINEOPLASTIC AND IMMUNOSUP DRUGS, INIT SNOMED Code(s): 716099304 (5) Colon cancer Current Visit: No Status: Acute Priority: High Code(s): C18.9 - MALIGNANT NEOPLASM OF COLON, UNSPECIFIED SNOMED Code(s): 613205530 (6) Drug-induced diarrhea Current Visit: No Status: Acute Priority: High Code(s): K52.1 - TOXIC DENYS ROENTERITIS AND COLITIS SNOMED Code(s): 273564119 (7) Breast cancer Current Visit: No Status: Chronic Priority: Medium Code(s): C50.919 - MALIGNANT NEOPLASM OF UNSP SITE OF UNSPECIFIED FEMALE BREAST SNOMED Code(s): 122757079 Plan: Assessment and Recommendations: Please keep NPO for now Unable to tolerate Questran, will add budesomide Continue Fluids to D5.9 Monitor electrolytes Physician Attest: I have completed the full history and physical and agree with above dictation, dictated as a scribe
[2020-05-04] MEDS: OLANZapine 5 MG TAB PO SCH (22:43)
[2020-05-05] MEDS: LOPERAMIDE 2 MG CAP PO SCH ×9 (02:19→23:50)
[2020-05-05] MEDS: DIPHENOX-ATROP 2.5-0.025 MG 1 EACH TAB PO SCH ×8 (02:19→23:49)
[2020-05-05] MEDS: D5-0.9% NACL WITH KCL 20 MEQ/L 1,000 ML IV SCH ×3 (05:41→20:45)
[2020-05-05] MEDS: BUDESONIDE ER 3 MG CAPSULE.ER PO SCH (08:43)
[2020-05-05] MEDS: CYANOCOBALAMIN 500 MCG TAB PO SCH (08:44)
[2020-05-05] MEDS: CHOLECALCIFEROL 25 MCG (1000 IU) TABLET PO SCH (08:44)
[2020-05-05] MEDS: ESCITALOPRAM 10 MG TAB PO SCH (08:45)
[2020-05-05] MEDS: FOLIC ACID-VIT B COMPLEX-VIT C 1 CAP PO SCH (08:46)
[2020-05-05] MEDS: MULTIVITAMINS, THERA 1 EACH TAB PO SCH (08:47)
[2020-05-05] MEDS: CHOLESTYRAMINE (WITH SUGAR) 4 GM PACKET PO SCH ×3 (08:48→16:09)
[2020-05-05] MEDS: TAMOXIFEN 10 MG TAB PO SCH (08:51)
[2020-05-05 09:42] LABS: HCT 23.3 % (37.2-46.3); HGB 7.6 g/dL (12.0-15.0); MCH 33.3 pg (27.0-32.0); MCHC 32.6 g/dL (32.0-37.0); MCV 102.2 fL (80.0-97.0); Platelet Count 20 X 10*3/uL (140-440); RBC 2.28 X 10*6/uL (4.10-5.20); RDW 18.1 % (11.5-14.5); WBC 3.95 X 10*3/uL (4.50-10.00)
[2020-05-05] MEDS: PANTOPRAZOLE 40 MG/10 ML VIAL IVP SCH (10:19)
[2020-05-05] MEDS: MAG HYDROX/AL HYDROX/SIMETH 30 ML, diphenhydrAMINE ELIXIR 75 MG, LIDOCAINE VISCOUS 30 ML PO SCH ×9 (10:20→20:46)
[2020-05-05 10:33] LABS: African American GFR (CKD) 90.3 (60.0-200.0); Albumin/Globulin Ratio 1.88 (1.60-3.17); Anion Gap 4.8 mmol/L (4.00-12.00); BUN/Creat Ratio 8.75 Ratio (12.00-20.00); Calcium 8.1 mg/dL (8.7-10.3); Carbon Dioxide 23.2 mmol/L (21.6-31.8); Globulin 1.6 g/dL (1.6-3.3); Non-African American GFR(CKD) 77.9 (60.0-200.0); Potassium 3.5 mmol/L (3.5-5.5); Total Bilirubin 0.7 mg/dL (0.3-1.2); Total Protein 4.6 g/dL (6.2-8.2)
[2020-05-05] MEDS: POTASSIUM CHLORIDE ER 20 MEQ TAB.ER PO SCH ×2 (16:03→16:48)
--- NOTE | 2020-05-05 16:03 | P.PN ---
Subjective Progress Note Date: 05/05/20 This is a 62-year-old female patient of Dr. Asif with past medical history of hypertension, left-sided breast cancer status post radiation therapy, colon cancer status post hemicolectomy in December 2017. Please see oncology note regarding history. Status post bowel resection with bilateral salpingo- oophorectomy and total abdominal hysterectomy laparoscopically on 09/01/19, pathology consistent with colon primary. He is status post left scalp cholecystectomy in January 2020. Patient has had nausea, vomiting and diarrhea for the past month. Last chemotherapy 1 week ago. Patient received IV hydration at [facility] and was discharged home but she went home and continued to have vomiting and feeling sick. She received a call from Mia Colmenares NP and was instructed to come into the hospital for further evaluation and treatment due to abnormal kidney and liver labs. Patient presented to [facility] emergency center. Patient was afebrile, heart rate 105, blood pressure 112/60, pulse ox 99% on room air. EKG was in normal sinus with no acute ST changes. W BC 7.4, hemoglobin 9.6, platelet count 30. Sodium 135, potassium 2.7 chloride 102, CO2 22, BUN 43 and creatinine 1.69. Blood sugar 148. Magnesium 1.8. Total bilirubin 0.6, AST 114, ALT 139, alkaline phosphatase 231. Amylase and lipase normal. Lactic acid 1.2. A C. difficile toxin negative. Coronavirus not detected. Patient was started on Lomotil, potassium was replaced and patient received 1 L of IV fluid, admitted to the oncology unit and consult with oncology. 05/04: Renal ultrasound revealed limited visualization of the kidneys. Slightly small size suggestive of chronic medical renal disease. No hydronephrosis. MRI of the brain revealed no suspicious change suggestive of metastatic disease. Mild chronic appearing periventricular white matter ischemic change. Liver ultrasound was normal post cholecystectomy. The patient states that she was still vomiting until this morning. She feels that the nausea is a little bit better. We did recommend trying a scopolamine patch next if she would like but wouldn't prefer to hold. We will try to advance her diet to clear liquids. She has been afebrile, heart rate 81, blood pressure 109/53, pulse ox 100% on room air. Repeat blood work reveals WBC 3.2, hemoglobin 6.9, platelet count 9. Sodium 140, potassium 3.5, chloride 115, CO2 22, BUN and creatinine 0.98. Blood sugar 112. Calcium 8.0. Total bilirubin 0.6, AST 117, ALT 143, alkaline phosphatase 153. URine culture no growth at 18 hours and ceftriaxone will be discontinued. 05/05 patient complains of improving on nausea, no new diarrhea this time, it has settled however whenever patient would eat, Diuril again would restart specially after meals. It is improving specially acid within several days since her last chemotherapy. Patient denies any fever no chills, vitals are stable, creatinine has improved with creatinine of 0.8, T-max of 98.1, nonlabored breathing, blood pressure from 138/74 heart rate of 66, 99% on room air. Hemoglobin currently at 7.6 from a previous of 6.9, platelet is low at 20, without any overt signs of bleeding. Patient denies any chest pain hemoptysis GI bleed and no palpitations. Oncology is following, with a bubble discharge on Thursday. Still unclear liquid diet, which would be advanced tomorrow REVIEW OF SYSTEMS Constitutional: No fever, no chills, no night sweats. Minimal weight loss. No weakness, fatigue or lethargy. No daytime sleepiness. EENT: No headache. No blurred vision or double vision, no loss of vision. No loss of Hearing, no ringing in the ears, no dizziness. No nasal drainage or congestion. No epistaxis. No sore throat. Lungs: No shortness of breath, cough, no sputum production. No wheezing. Cardiovascular: No chest pain, no lower extremity edema. No palpitations. No paroxysmal nocturnal dyspnea. No orthopnea. No lightheadedness or dizziness. No syncopal episodes. Abdominal: Reports abdominal pain. Reports nausea, improved vomiting. Reports diarrhea. No constipation. No bloody or tarry stools reports loss of appetite. Genitourinary: No dysuria, increased frequency, urgency. No urinary retention. Musculoskeletal: No myalgias. Reports muscle weakness, no gait dysfunction, no frequent falls. No back pain. No neck pain. Integumentary: No wounds, no lesions. No rash or pruritus. No unusual bruising. No change in hair or nails. Neurologic: No aphasia. No facial droop. No change in mentation. No head injury. No headache. No paralysis. No paresthesia. Psychiatric: No depression. No anxiety. No mood swings. Endocrine: No abnormal blood sugars. PHYSICAL EXAMINATION Objective - Vital Signs Vital signs: Vital Signs Temp 98.1 F 05/05/20 05:15 Pulse 70 05/05/20 08:00 Resp 20 05/05/20 08:00 BP 103/65 05/05/20 05:15 Pulse Ox 99 05/05/20 05:15 Intake & Output 05/04/20 05/05/20 05/05/20 18:59 06:59 18:59 Intake Total 1310 829 Balance 1310 829 Intake: Intake, IV Titration 1000 Amount D5-0.9% NaCl with KCl 20 1000 Meq/l 1,000 ml @ 125 mls/ hr IV .Q8H [facility] Rx#: [id number] Oral 460 Blood Product 310 369 Platelet Pheresis Pas-C 0 369 Unit [id number] Rc Irr As1 Unit 310 [id number] Other: # Voids 5 1 1 # Bowel Movements 5 5 - Constitutional General appearance: Present: cooperative, mild distress - EENT Eyes: Present: anicteric sclerae, EOMI, PERRLA, dentition normal, normal appearance ENT: Present: NA/AT, normal oropharynx - Neck Neck: Present: normal ROM Thyroid: bilateral: normal size, negative: enlarged, firm - Respiratory Respiratory: bilateral: CTA, negative: diminished, dullness - Cardiovascular Rhythm: regular Heart sounds: normal: S1, S2 Abnormal Heart Sounds: Absent: systolic murmur, diastolic murmur, rub, S3 Gallop, S4 Gallop, click, other - Gastrointestinal General gastrointestinal: Present: normal bowel sounds, soft - Integumentary Integumentary: Present: decreased turgor, normal - Neurologic Neurologic: Present: CNII-XII intact - Musculoskeletal Musculoskeletal: Present: gait normal, generalized weakness, strength equal bilaterally - Psychiatric Psychiatric: Present: A&O x's 3, appropriate affect - Labs CBC & Chem 7: 05/05/20 06:15 05/05/20 06:15 Labs: Abnormal Lab Results - Last 24 Hours (Table) 05/04/20 05/05/20 05/05/20 Range/Units 10:53 06:15 06:15 WBC 3.95 L (4.50-10.00) X 10*3/uL RBC 2.28 L (4.10-5.20) X 10*6/uL Hgb 7.6 L (12.0-15.0) g/dL Hct 23.3 L (37.2-46.3) % MCV 102.2 H (80.0-97.0) fL MCH 33.3 H (27.0-32.0) pg RDW 18.1 H (11.5-14.5) % Plt Count 20 L (140-440) X 10*3/uL Plt Count Comment A Absolute Nucleated RBC 0.04 H (0.00-0.00) X 10*3/uL NRBC/100 WBC Diff 1.0 H (0.0-0.0) /100 WBCS Immature Plt Fraction 9.8 H (1.1-6.1) % Chloride 117 H (96-109) mmol/L BUN 7.0 L (9.0-27.0) mg/dL BUN/Creatinine Ratio 8.75 L (12.00-20.00) Ratio Calcium 8.1 L (8.7-10.3) mg/dL AST 109 H (13-35) U/L ALT 161 H (8-44) U/L Alkaline Phosphatase 170 H (41-126) U/L Total Protein 4.6 L (6.2-8.2) g/dL Albumin 3.00 L (3.80-4.90) g/dL Crossmatch See Detail Microbiology - Last 24 Hours (Table) 05/02/20 01:15 Stool Culture - Preliminary Stool 05/02/20 22:22 Blood Culture - Preliminary Blood No Growth after 48 hours 05/02/20 17:30 Blood Culture - Preliminary Blood No Growth after 48 hours Assessment and Plan Plan: 1. Acute kidney injury secondary to poor oral intake, vomiting or diarrhea most likely secondary to chemotherapy. Continue IV fluids at 125 mL per hour, recheck renal function. 2. Diarrhea secondary to chemotherapy, on Imodium, and Questran 4 g 3 times a day, C. diff negative 2. Severe hypokalemia secondary to dehydration, status post replacement. Improved resolved Continue to monitor 3. Boothe cytopenia with anemia and thrombocytopenia leukopenia secondary to chemotherapy. Oncology has ordered transfusion of platelets and packed RBCs. 4. Acute urinary tract infection ruled out. 5. Elevated liver function tests. 6. Metastatic colon cancer status post hysterectomy and bilateral salpingo- oophorectomy in August and currently undergoing chemotherapy. Consult with oncology. 7. History of colon cancer status post hemicolectomy in December [address] Kulkarni. 8. Hypertension. Hold lisinopril 20 mg twice daily. 9. History of breast cancer status post lumpectomy and radiation. Continue tamoxifen. 10. DVT prophylaxis. Hold heparin secondary to thrombocytopenia. 11. GI prophylaxis. Protonix.
--- NOTE | 2020-05-05 19:34 | P.PN ---
Subjective Progress Note Date: 05/05/20 The patient reports slight increase in diarrhea, with ongoing clear liquid diet. She has not had any vomiting and nausea is improved. No significant oral ulcers. No fever or chills Objective - Vital Signs Vital signs: Vital Signs Temp 97.7 F 05/05/20 14:12 Pulse 66 05/05/20 14:12 Resp 16 05/05/20 14:12 BP 138/74 05/05/20 14:12 Pulse Ox 99 05/05/20 14:12 Intake & Output 05/05/20 05/05/20 05/06/20 06:59 18:59 06:59 Intake Total 829 720 Balance 829 720 Intake: Oral 460 720 Blood Product 369 Platelet Pheresis Pas-C 369 Unit [id number] Other: # Voids 1 4 # Bowel Movements 5 - Constitutional General appearance: Present: no acute distress - EENT Eyes: Present: EOMI ENT: Present: hearing grossly normal, pharyngeal erythema (Mild residual pharyngeal erythema posterior and lateral) - Neck Thyroid: bilateral: normal size - Respiratory Respiratory: bilateral: CTA - Cardiovascular Rhythm: regular Heart sounds: normal: S1, S2 - Gastrointestinal General gastrointestinal: Present: normal bowel sounds, soft - Integumentary Integumentary: Present: normal - Neurologic Neurologic: Present: CNII-XII intact - Musculoskeletal Musculoskeletal: Present: strength equal bilaterally - Psychiatric Psychiatric: Present: A&O x's 3, appropriate affect - Labs CBC & Chem 7: 05/05/20 06:15 05/05/20 06:15 Labs: Abnormal Lab Results - Last 24 Hours (Table) 05/05/20 05/05/20 Range/Units 06:15 06:15 WBC 3.95 L (4.50-10.00) X 10*3/uL RBC 2.28 L (4.10-5.20) X 10*6/uL Hgb 7.6 L (12.0-15.0) g/dL Hct 23.3 L (37.2-46.3) % MCV 102.2 H (80.0-97.0) fL MCH 33.3 H (27.0-32.0) pg RDW 18.1 H (11.5-14.5) % Plt Count 20 L (140-440) X 10*3/uL Plt Count Comment A Absolute Nucleated RBC 0.04 H (0.00-0.00) X 10*3/uL NRBC/100 WBC Diff 1.0 H (0.0-0.0) /100 WBCS Immature Plt Fraction 9.8 H (1.1-6.1) % Chloride 117 H (96-109) mmol/L BUN 7.0 L (9.0-27.0) mg/dL BUN/Creatinine Ratio 8.75 L (12.00-20.00) Ratio Calcium 8.1 L (8.7-10.3) mg/dL AST 109 H (13-35) U/L ALT 161 H (8-44) U/L Alkaline Phosphatase 170 H (41-126) U/L Total Protein 4.6 L (6.2-8.2) g/dL Albumin 3.00 L (3.80-4.90) g/dL Microbiology - Last 24 Hours (Table) 05/02/20 01:15 Stool Culture - Preliminary Stool 05/02/20 22:22 Blood Culture - Preliminary Blood No Growth after 48 hours 05/02/20 17:30 Blood Culture - Preliminary Blood No Growth after 48 hours Assessment and Plan (1) Drug-induced diarrhea Narrative/Plan: The patient came in with intractable diarrhea due to chemotherapy, most likely 5-FU effect. Diarrhea is improved since admission, but is still persistent. She notes slight increased with ongoing clear liquids. - Continue Imodium, Lomotil and oral budesonide. - Continue clear liquids today. We need to be very cautious advancing her diet. If patient is stable to improved tomorrow we will try full liquids. Current Visit: No Status: Acute Priority: High Code(s): K52.1 - TOXIC GASTROENTERITIS AND COLITIS SNOMED Code(s): 295672430 (2) Dehydration Narrative/Plan: The same, and HPI, improved with ongoing IV hydration. Continue same as the patient is still having diarrhea. Continue to monitor Current Visit: Yes Status: Acute Priority: High Code(s): E86.0 - DEHYDRATION SNOMED Code(s): 51900300 (3) Pancytopenia due to antineoplastic chemotherapy Narrative/Plan: Patient's received PRBC and platelets essentially. Today hemoglobin and platelets are in a safe range. WBC slightly improved and also in a safe range. Continue to monitor with additional supportive transfusions if needed. Current Visit: Yes Status: Acute Code(s): D61.810 - ANTINEOPLASTIC CHEMOTHERAPY INDUCED PANCYTOPENIA; T45.1X5A - ADVERSE EFFECT OF ANTINEOPLASTIC AND IMMUNOSUP DRUGS, INIT SNOMED Code(s): 970101010775363 (4) Colon cancer Narrative/Plan: Which and had 1 more cycle of chemotherapy planned. We will evaluate for proceeding with the same with further dose reduction, versus affecting it, depending on how well the patient recovers, as well as her wishes. Current Visit: No Status: Acute Priority: High Code(s): C18.9 - MALIGNANT NEOPLASM OF COLON, UNSPECIFIED SNOMED Code(s): 062507049
[2020-05-05] MEDS: OLANZapine 5 MG TAB PO SCH (20:43)
[2020-05-05] MEDS: lisinopriL 20 MG TAB PO SCH (20:45)
[2020-05-06] MEDS: DIPHENOX-ATROP 2.5-0.025 MG 1 EACH TAB PO SCH ×7 (02:07→20:43)
[2020-05-06] MEDS: LOPERAMIDE 2 MG CAP PO SCH ×7 (02:07→20:43)
[2020-05-06] MEDS: D5-0.9% NACL WITH KCL 20 MEQ/L 1,000 ML IV SCH ×3 (05:51→20:48)
[2020-05-06] MEDS: PANTOPRAZOLE 40 MG/10 ML VIAL IVP SCH (08:19)
[2020-05-06] MEDS: CYANOCOBALAMIN 500 MCG TAB PO SCH (08:19)
[2020-05-06] MEDS: TAMOXIFEN 10 MG TAB PO SCH (08:19)
[2020-05-06] MEDS: ESCITALOPRAM 10 MG TAB PO SCH (08:19)
[2020-05-06] MEDS: CHOLECALCIFEROL 25 MCG (1000 IU) TABLET PO SCH (08:19)
[2020-05-06] MEDS: FOLIC ACID-VIT B COMPLEX-VIT C 1 CAP PO SCH (08:19)
[2020-05-06] MEDS: BUDESONIDE ER 3 MG CAPSULE.ER PO SCH (08:19)
[2020-05-06] MEDS: MULTIVITAMINS, THERA 1 EACH TAB PO SCH (08:19)
[2020-05-06] MEDS: lisinopriL 20 MG TAB PO SCH ×2 (08:19→20:43)
[2020-05-06] MEDS: MAG HYDROX/AL HYDROX/SIMETH 30 ML, diphenhydrAMINE ELIXIR 75 MG, LIDOCAINE VISCOUS 30 ML PO SCH ×9 (08:20→20:44)
[2020-05-06 09:45] LABS: HCT 21.8 % (37.2-46.3); HGB 7.5 g/dL (12.0-15.0); MCH 34.6 pg (27.0-32.0); MCHC 34.4 g/dL (32.0-37.0); MCV 100.5 fL (80.0-97.0); Platelet Count 12 X 10*3/uL (140-440); RBC 2.17 X 10*6/uL (4.10-5.20); RDW 18.2 % (11.5-14.5); WBC 4.66 X 10*3/uL (4.50-10.00)
[2020-05-06 09:46] LABS: Tear Drop Cells 2+
[2020-05-06 09:54] LABS: ALT 154 U/L (8-44); AST 91 U/L (13-35); African American GFR (CKD) 106.1 (60.0-200.0); Albumin/Globulin Ratio 1.75 (1.60-3.17); Alkaline Phosphatase 163 U/L (41-126); Blood Urea Nitrogen <5.0 mg/dL (9.0-27.0); Calcium 7.8 mg/dL (8.7-10.3); Chloride 119 mmol/L (96-109); Globulin 1.6 g/dL (1.6-3.3); Glucose 104 mg/dL (70-110); Non-African American GFR(CKD) 91.6 (60.0-200.0); Potassium 3.4 mmol/L (3.5-5.5); Sodium 146 mmol/L (135-145); Total Bilirubin 0.4 mg/dL (0.3-1.2); Total Protein 4.4 g/dL (6.2-8.2)
[2020-05-06] MEDS: CHOLESTYRAMINE (WITH SUGAR) 4 GM PACKET PO SCH ×3 (10:00→14:49)
--- NOTE | 2020-05-06 12:00 | P.PN ---
Subjective Progress Note Date: 05/06/20 The patient states that she still has some diarrhea whenever she eats, but overall the amount appears to be less. She also reports improvement in abdominal discomfort. Nausea appears to have resolved. She is not complaining of any major mouth sores, or obvious bleeding. Objective - Vital Signs Vital signs: Vital Signs Temp 98 F 05/06/20 05:00 Pulse 68 05/06/20 08:00 Resp 20 05/06/20 08:00 BP 145/68 05/06/20 05:00 Pulse Ox 98 05/06/20 05:00 Intake & Output 05/05/20 05/06/20 05/06/20 18:59 06:59 18:59 Intake Total 720 175 Balance 720 175 Intake: Oral 720 175 Other: # Voids 4 1 # Bowel Movements 5 - Constitutional General appearance: Present: no acute distress - EENT Eyes: Present: EOMI ENT: Present: hearing grossly normal, pharyngeal erythema (Now minimal, around the right tonsillar fossa) - Respiratory Respiratory: bilateral: CTA - Cardiovascular Rhythm: regular Heart sounds: normal: S1, S2 - Gastrointestinal General gastrointestinal: Present: normal bowel sounds, soft - Integumentary Integumentary: Present: normal - Neurologic Neurologic: Present: CNII-XII intact - Musculoskeletal Musculoskeletal: Present: strength equal bilaterally - Psychiatric Psychiatric: Present: A&O x's 3, appropriate affect - Labs CBC & Chem 7: 05/06/20 05:51 05/06/20 05:51 Labs: Abnormal Lab Results - Last 24 Hours (Table) 05/06/20 05/06/20 Range/Units 05:51 05:51 RBC 2.17 L (4.10-5.20) X 10*6/uL Hgb 7.5 L (12.0-15.0) g/dL Hct 21.8 L (37.2-46.3) % MCV 100.5 H (80.0-97.0) fL MCH 34.6 H (27.0-32.0) pg RDW 18.2 H (11.5-14.5) % Plt Count 12 L* (140-440) X 10*3/uL Plt Count Comment A Absolute Nucleated RBC 0.06 H (0.00-0.00) X 10*3/uL NRBC/100 WBC Diff 1.3 H (0.0-0.0) /100 WBCS Immature Plt Fraction 19.7 H (1.1-6.1) % Sodium 146 H (135-145) mmol/L Potassium 3.4 L (3.5-5.5) mmol/L Chloride 119 H (96-109) mmol/L Anion Gap 2.00 L (4.00-12.00) mmol/L BUN <5.0 L (9.0-27.0) mg/dL Calcium 7.8 L (8.7-10.3) mg/dL AST 91 H (13-35) U/L ALT 154 H (8-44) U/L Alkaline Phosphatase 163 H (41-126) U/L Total Protein 4.4 L (6.2-8.2) g/dL Albumin 2.80 L (3.80-4.90) g/dL Microbiology - Last 24 Hours (Table) 05/02/20 22:22 Blood Culture - Preliminary Blood No Growth after 72 hours 05/02/20 17:30 Blood Culture - Preliminary Blood No Growth after 72 hours 05/02/20 01:15 Stool Culture - Preliminary Stool Assessment and Plan (1) Drug-induced diarrhea Narrative/Plan: This appears to be possibly slightly improved, on clear liquids. Advanced to full liquids with lunch today. Continue to monitor. Continue oral budesonide and Lomotil/Imodium. Current Visit: No Status: Acute Priority: High Code(s): K52.1 - TOXIC GASTROENTERITIS AND COLITIS SNOMED Code(s): 401217446 (2) Dehydration Narrative/Plan: Resolved Current Visit: Yes Status: Acute Priority: High Code(s): E86.0 - DE HYDRATION SNOMED Code(s): 12341769 (3) Pancytopenia due to antineoplastic chemotherapy Narrative/Plan: WBC is showing signs of recovery. Hemoglobin was 7.5 and platelets 12. Continue to monitor. Transfuse for hemoglobin less than 7 and platelets less than 10. Current Visit: Yes Status: Acute Code(s): D61.810 - ANTINEOPLASTIC CHEMOTHERAPY INDUCED PANCYTOPENIA; T45.1X5A - ADVERSE EFFECT OF ANTINEOPLASTIC AND IMMUNOSUP DRUGS, INIT SNOMED Code(s): 164624074435497 (4) Colon cancer Current Visit: No Status: Acute Priority: High Code(s): C18.9 - MALIGNANT NEOPLASM OF COLON, UNSPECIFIED SNOMED Code(s): 163882569
[2020-05-06] MEDS: POTASSIUM CHLORIDE ER 20 MEQ TAB.ER PO SCH ×2 (13:19→15:24)
--- NOTE | 2020-05-06 14:29 | P.PN ---
Subjective Progress Note Date: 05/06/20 This is a 62-year-old female patient of Dr. Asif with past medical history of hypertension, left-sided breast cancer status post radiation therapy, colon cancer status post hemicolectomy in December 2017. Please see oncology note regarding history. Status post bowel resection with bilateral salpingo- oophorectomy and total abdominal hysterectomy laparoscopically on 09/01/19, pathology consistent with colon primary. He is status post left scalp cholecystectomy in January 2020. Patient has had nausea, vomiting and diarrhea for the past month. Last chemotherapy 1 week ago. Patient received IV hydration at [facility] and was discharged home but she went home and continued to have vomiting and feeling sick. She received a call from Mia Colmenares NP and was instructed to come into the hospital for further evaluation and treatment due to abnormal kidney and liver labs. Patient presented to [facility] emergency center. Patient was afebrile, heart rate 105, blood pressure 112/60, pulse ox 99% on room air. EKG was in normal sinus with no acute ST changes. W BC 7.4, hemoglobin 9.6, platelet count 30. Sodium 135, potassium 2.7 chloride 102, CO2 22, BUN 43 and creatinine 1.69. Blood sugar 148. Magnesium 1.8. Total bilirubin 0.6, AST 114, ALT 139, alkaline phosphatase 231. Amylase and lipase normal. Lactic acid 1.2. A C. difficile toxin negative. Coronavirus not detected. Patient was started on Lomotil, potassium was replaced and patient received 1 L of IV fluid, admitted to the oncology unit and consult with oncology. 05/04: Renal ultrasound revealed limited visualization of the kidneys. Slightly small size suggestive of chronic medical renal disease. No hydronephrosis. MRI of the brain revealed no suspicious change suggestive of metastatic disease. Mild chronic appearing periventricular white matter ischemic change. Liver ultrasound was normal post cholecystectomy. The patient states that she was still vomiting until this morning. She feels that the nausea is a little bit better. We did recommend trying a scopolamine patch next if she would like but wouldn't prefer to hold. We will try to advance her diet to clear liquids. She has been afebrile, heart rate 81, blood pressure 109/53, pulse ox 100% on room air. Repeat blood work reveals WBC 3.2, hemoglobin 6.9, platelet count 9. Sodium 140, potassium 3.5, chloride 115, CO2 22, BUN and creatinine 0.98. Blood sugar 112. Calcium 8.0. Total bilirubin 0.6, AST 117, ALT 143, alkaline phosphatase 153. URine culture no growth at 18 hours and ceftriaxone will be discontinued. 05/05 patient complains of improving on nausea, no new diarrhea this time, it has settled however whenever patient would eat, Diuril again would restart specially after meals. It is improving specially acid within several days since her last chemotherapy. Patient denies any fever no chills, vitals are stable, creatinine has improved with creatinine of 0.8, T-max of 98.1, nonlabored breathing, blood pressure from 138/74 heart rate of 66, 99% on room air. Hemoglobin currently at 7.6 from a previous of 6.9, platelet is low at 20, without any overt signs of bleeding. Patient denies any chest pain hemoptysis GI bleed and no palpitations. Oncology is following, with a bubble discharge on Thursday. Still unclear liquid diet, which would be advanced tomorrow 05/06, patient still has some nausea, however she has tolerated some of the full liquid diet that was initiated, no fever, no chills still has diarrhea, vitals are stable, WBC count 4.6 better, hemoglobin stable 7.5 unchanged, platelet count diminished [address] Dockery notified of the low platelet count, patient denies any overuse bleeding, there is diminution of the mild sore discomfort, however she shows some minor improvement today. She is on oral budesonide and Lomotil to Imodium, Questran he recommends platelet infusion under less than 10, and blood transfusion for hemoglobin less than 7 REVIEW OF SYSTEMS Constitutional: No fever, no chills, no night sweats. Minimal weight loss. No weakness, fatigue or lethargy. No daytime sleepiness. EENT: No headache. No blurred vision or double vision, no loss of vision. No loss of Hearing, no ringing in the ears, no dizziness. No nasal drainage or congestion. No epistaxis. No sore throat. Lungs: No shortness of breath, cough, no sputum production. No wheezing. Cardiovascular: No chest pain, no lower extremity edema. No palpitations. No paroxysmal nocturnal dyspnea. No orthopnea. No lightheadedness or dizziness. No syncopal episodes. Abdominal: Reports abdominal pain. Reports nausea, improved vomiting. Reports diarrhea. No constipation. No bloody or tarry stools reports loss of appetite. Genitourinary: No dysuria, increased frequency, urgency. No urinary retention. Musculoskeletal: No myalgias. Reports muscle weakness, no gait dysfunction, no frequent falls. No back pain. No neck pain. Integumentary: No wounds, no lesions. No rash or pruritus. No unusual bruising. No change in hair or nails. Neurologic: No aphasia. No facial droop. No change in mentation. No head injury. No headache. No paralysis. No paresthesia. Psychiatric: No depression. No anxiety. No mood swings. Endocrine: No abnormal blood sugars. PHYSICAL EXAMINATION Objective - Vital Signs Vital signs: Vital Signs Temp 98 F 05/06/20 05:00 Pulse 68 05/06/20 08:00 Resp 20 05/06/20 08:00 BP 145/68 05/06/20 05:00 Pulse Ox 98 05/06/20 05:00 Intake & Output 05/05/20 05/06/20 05/06/20 18:59 06:59 18:59 Intake Total 720 175 Balance 720 175 Intake: Oral 720 175 Other: # Voids 4 1 # Bowel Movements 5 - Constitutional General appearance: Present: cooperative, no acute distress - EENT Eyes: Present: anicteric sclerae, PERRLA, dentition normal ENT: Present: NA/AT, normal oropharynx - Neck Neck: Present: normal ROM - Respiratory Respiratory: bilateral: CTA, negative: diminished, dullness, rales - Cardiovascular Rhythm: regular Heart sounds: normal: S1, S2 Abnormal Heart Sounds: Absent: systolic murmur, diastolic murmur, rub, S3 Gallop, S4 Gallop, click, other - Gastrointestinal General gastrointestinal: Present: organomegaly, soft - Integumentary Integumentary: Present: normal, normal turgor - Neurologic Neurologic: Present: CNII-XII intact - Psychiatric Psychiatric: Present: A&O x's 3, appropriate affect - Labs CBC & Chem 7: 05/06/20 05:51 05/06/20 05:51 Labs: Abnormal Lab Results - Last 24 Hours (Table) 05/06/20 05/06/20 Range/Units 05:51 05:51 RBC 2.17 L (4.10-5.20) X 10*6/uL Hgb 7.5 L (12.0-15.0) g/dL Hct 21.8 L (37.2-46.3) % MCV 100.5 H (80.0-97.0) fL MCH 34.6 H (27.0-32.0) pg RDW 18.2 H (11.5-14.5) % Plt Count 12 L* (140-440) X 10*3/uL Plt Count Comment A Absolute Nucleated RBC 0.06 H (0.00-0.00) X 10*3/uL NRBC/100 WBC Diff 1.3 H (0.0-0.0) /100 WBCS Immature Plt Fraction 19.7 H (1.1-6.1) % Sodium 146 H (135-145) mmol/L Potassium 3.4 L (3.5-5.5) mmol/L Chloride 119 H (96-109) mmol/L Anion Gap 2.00 L (4.00-12.00) mmol/L BUN <5.0 L (9.0-27.0) mg/dL Calcium 7.8 L (8.7-10.3) mg/dL AST 91 H (13-35) U/L ALT 154 H (8-44) U/L Alkaline Phosphatase 163 H (41-126) U/L Total Protein 4.4 L (6.2-8.2) g/dL Albumin 2.80 L (3.80-4.90) g/dL Microbiology - Last 24 Hours (Table) 05/02/20 22:22 Blood Culture - Preliminary Blood No Growth after 72 hours 05/02/20 17:30 Blood Culture - Preliminary Blood No Growth after 72 hours 05/02/20 01:15 Stool Culture - Preliminary Stool Assessment and Plan Plan: 1. Acute kidney injury secondary to poor oral intake, vomiting or diarrhea most likely secondary to chemotherapy improved. Continue IV fluids at 125 mL per hour, recheck renal function. 2. Diarrhea secondary to chemotherapy, on Imodium, and Questran 4 g 3 times a day, C. diff negative possible Sandostatin 2. Severe hypokalemia secondary to dehydration, status post replacement. Improved resolved Continue to monitor 3. Boothe cytopenia with anemia and thrombocytopenia leukopenia secondary to chemotherapy. Oncology has ordered transfusion of platelets and packed RBCs. 4. Acute urinary tract infection ruled out. 5. Elevated liver function tests. 6. Metastatic colon cancer status post hysterectomy and bilateral salpingo- oophorectomy in August and currently undergoing chemotherapy. Consult with oncology. 7. History of colon cancer status post hemicolectomy in December [address] Kulkarni. 8. Hypertension. Hold lisinopril 20 mg twice daily. 9. History of breast cancer status post lumpectomy and radiation. Continue tamoxifen. 10. DVT prophylaxis. Hold heparin secondary to thrombocytopenia. 11. GI prophylaxis. Protonix.
[2020-05-06] MEDS: hydrALAZINE HCL 20 MG/ML 1 ML VIAL IVP PRN (16:02)
[2020-05-06] MEDS: OLANZapine 5 MG TAB PO SCH (20:44)
[2020-05-07] MEDS: DIPHENOX-ATROP 2.5-0.025 MG 1 EACH TAB PO SCH ×9 (00:13→23:41)
[2020-05-07] MEDS: LOPERAMIDE 2 MG CAP PO SCH ×9 (00:14→23:42)
[2020-05-07] MEDS: D5-0.9% NACL WITH KCL 20 MEQ/L 1,000 ML IV SCH (06:10)
[2020-05-07] MEDS: hydrALAZINE HCL 20 MG/ML 1 ML VIAL IVP PRN ×2 (06:14→10:41)
[2020-05-07] MEDS: FOLIC ACID-VIT B COMPLEX-VIT C 1 CAP PO SCH (08:04)
[2020-05-07] MEDS: CHOLECALCIFEROL 25 MCG (1000 IU) TABLET PO SCH (08:04)
[2020-05-07] MEDS: MULTIVITAMINS, THERA 1 EACH TAB PO SCH (08:04)
[2020-05-07] MEDS: CYANOCOBALAMIN 500 MCG TAB PO SCH (08:04)
[2020-05-07] MEDS: lisinopriL 20 MG TAB PO SCH (08:04)
[2020-05-07] MEDS: BUDESONIDE ER 3 MG CAPSULE.ER PO SCH (08:04)
[2020-05-07] MEDS: ESCITALOPRAM 10 MG TAB PO SCH (08:04)
[2020-05-07] MEDS: TAMOXIFEN 10 MG TAB PO SCH (08:05)
[2020-05-07] MEDS: MAG HYDROX/AL HYDROX/SIMETH 30 ML, diphenhydrAMINE ELIXIR 75 MG, LIDOCAINE VISCOUS 30 ML PO SCH ×9 (08:05→20:58)
[2020-05-07] MEDS: PANTOPRAZOLE 40 MG/10 ML VIAL IVP SCH (08:05)
[2020-05-07] MEDS ORDERED: lisinopriL 10 MG TAB PO STA (08:44)
[2020-05-07] MEDS ORDERED: lisinopriL 10 MG TAB PO SCH (09:00)
[2020-05-07] MEDS: CHOLESTYRAMINE (WITH SUGAR) 4 GM PACKET PO SCH ×3 (09:08→17:27)
[2020-05-07] MEDS ORDERED: POTASSIUM CHLORIDE ER 20 MEQ TAB.ER PO STA (09:14)
[2020-05-07 09:20] LABS: ALT 139 U/L (8-44); AST 65 U/L (13-35); African American GFR (CKD) 106.1 (60.0-200.0); Albumin/Globulin Ratio 1.75 (1.60-3.17); Alkaline Phosphatase 173 U/L (41-126); Blood Urea Nitrogen <5.0 mg/dL (9.0-27.0); Calcium 7.9 mg/dL (8.7-10.3); Carbon Dioxide 24.3 mmol/L (21.6-31.8); Chloride 117 mmol/L (96-109); Globulin 1.6 g/dL (1.6-3.3); Glucose 97 mg/dL (70-110); Non-African American GFR(CKD) 91.6 (60.0-200.0); Potassium 3.9 mmol/L (3.5-5.5); Sodium 146 mmol/L (135-145); Total Bilirubin 0.3 mg/dL (0.2-1.2); Total Protein 4.4 g/dL (6.2-8.2)
[2020-05-07] MEDS ORDERED: SCOPOLAMINE 1.5MG/72HR PATCH TRANSDERM SCH (09:30)
[2020-05-07 10:21] LABS: HCT 22.6 % (37.2-46.3); HGB 7.7 g/dL (12.0-15.0); MCH 34.5 pg (27.0-32.0); MCHC 34.1 g/dL (32.0-37.0); MCV 101.3 fL (80.0-97.0); Platelet Count 15 X 10*3/uL (140-440); RBC 2.23 X 10*6/uL (4.10-5.20); RDW 18.2 % (11.5-14.5); WBC 6.81 X 10*3/uL (4.50-10.00)
[2020-05-07] MEDS: D5-0.45% NACL WITH KCL 20MEQ/L 1,000 ML IV SCH ×2 (10:45→17:46)
--- NOTE | 2020-05-07 10:56 | P.PN ---
Subjective Progress Note Date: 05/07/20 HISTORY OF PRESENT ILLNESS This is a 62-year-old female patient of Dr. Asif with past medical history of hypertension, left-sided breast cancer status post radiation therapy, colon cancer status post hemicolectomy in December 2017. Please see oncology note regarding history. Status post bowel resection with bilateral salpingo- oophorectomy and total abdominal hysterectomy laparoscopically on 09/01/19, pathology consistent with colon primary. He is status post left scalp cholecystectomy in January 2020. Patient has had nausea, vomiting and diarrhea for the past month. Last chemotherapy 1 week ago. Patient received IV hydration at [facility] and was discharged home but she went home and continued to have vomiting and feeling sick. She received a call from Mia Colmenares NP and was instructed to come into the hospital for further evaluation and treatment due to abnormal kidney and liver labs. Patient presented to [facility] emergency center. Patient was afebrile, heart rate 105, blood pressure 112/60, pulse ox 99% on room air. EKG was in normal sinus with no acute ST changes. W BC 7.4, hemoglobin 9.6, platelet count 30. Sodium 135, potassium 2.7 chloride 102, CO2 22, BUN 43 and creatinine 1.69. Blood sugar 148. Magnesium 1.8. Total bilirubin 0.6, AST 114, ALT 139, alkaline phosphatase 231. Amylase and lipase normal. Lactic acid 1.2. A C. difficile toxin negative. Coronavirus not detected. Patient was started on Lomotil, potassium was replaced and patient received 1 L of IV fluid, admitted to the oncology unit and consult with oncology. 05/04: Renal ultrasound revealed limited visualization of the kidneys. Slightly small size suggestive of chronic medical renal disease. No hydronephrosis. MRI of the brain revealed no suspicious change suggestive of metastatic disease. Mild chronic appearing periventricular white matter ischemic change. Liver ultrasound was normal post cholecystectomy. The patient states that she was still vomiting until this morning. She feels that the nausea is a little bit be tter. We did recommend trying a scopolamine patch next if she would like but wouldn't prefer to hold. We will try to advance her diet to clear liquids. She has been afebrile, heart rate 81, blood pressure 109/53, pulse ox 100% on room air. Repeat blood work reveals WBC 3.2, hemoglobin 6.9, platelet count 9. Sodium 140, potassium 3.5, chloride 115, CO2 22, BUN and creatinine 0.98. Blood sugar 112. Calcium 8.0. Total bilirubin 0.6, AST 117, ALT 143, alkaline phosphatase 153. URine culture no growth at 18 hours and ceftriaxone will be discontinued. 05/05 patient complains of improving on nausea, no new diarrhea this time, it has settled however whenever patient would eat, Diuril again would restart specially after meals. It is improving specially acid within several days since her last chemotherapy. Patient denies any fever no chills, vitals are stable, creatinine has improved with creatinine of 0.8, T-max of 98.1, nonlabored breathing, blood pressure from 138/74 heart rate of 66, 99% on room air. Hemoglobin currently at 7.6 from a previous of 6.9, platelet is low at 20, without any overt signs of bleeding. Patient denies any chest pain hemoptysis GI bleed and no palpita tions. Oncology is following, with a bubble discharge on Thursday. Still unclear liquid diet, which would be advanced tomorrow 05/06, patient still has some nausea, however she has tolerated some of the full liquid diet that was initiated, no fever, no chills still has diarrhea, vitals are stable, WBC count 4.6 better, hemoglobin stable 7.5 unchanged, platelet count diminished [address] Dock[address] notified of the low platelet count, patient denies any overuse bleeding, there is diminution of the mild sore discomfort, however she shows some minor improvement today. She is on oral budesonide and Lomotil to Imodium, Questran he recommends platelet infusion under less than 10, and blood transfusion for hemoglobin less than 7 05/07: Patient has been afebrile, heart rate 83, blood pressure 170/82, pulse ox 99% on room air. Patient has been resumed on lisinopril which will be increased to 30 g twice daily. Repeat blood work reveals CBC of 6.8, hemoglobin 7.7 platelet count 15. Sodium 146, potassium 3.9, chloride 117, CO2 24, BUN less than 5, creatinine 0.7. AST 65, ALT 139, alkaline phosphatase 173. Stool culture showed no Salmonella Shigella Campylobacter, no E. coli 0157, no E. coli Shiga toxin. Urine culture finalized with no growth. Blood cultures negative at 96 hours. Patient is status post transfusion of 1 unit of platelets and 1 unit of packed RBCs on May 04. Patient states that she ate this morning and took her medications and shortly after that she vomited. We have added in a scopolamine patch if she would like to take it. IV fluids will be changed to D5 and half-normal saline with KCl. The patient denies having any abdominal pain but did have some cramping with vomiting. She states she is still having diarrhea 2 times this morning and it usually occurs after meals. Diarrhea is overall improving. Discussed case with Dr. James and if patient remains stable, most likely she'll be cleared for discharge tomorrow. REVIEW OF SYSTEMS Constitutional: No fever, no chills, no night sweats. Minimal weight loss. No weakness, fatigue or lethargy. No daytime sleepiness. EENT: No headache. No blurred vision or double vision, no loss of vision. No loss of Hearing, no ringing in the ears, no dizziness. No nasal drainage or congestion. No epistaxis. No sore throat. Lungs: No shortness of breath, cough, no sputum production. No wheezing. Cardiovascular: No chest pain, no lower extremity edema. No palpitations. No lightheadedness or dizziness. No syncopal episodes. Abdominal: Denies abdominal pain. Reports nausea, improved vomiting. Reports diarrhea. No constipation. No bloody or tarry stools reports loss of appetite. Genitourinary: No dysuria, increased frequency, urgency. No urinary retention. Musculoskeletal: No myalgias. Reports muscle weakness, no gait dysfunction, no frequent falls. No back pain. No neck pain. Integumentary: No wounds, no lesions. No rash or pruritus. No unusual bruising. No change in hair or nails. Neurologic: No aphasia. No facial droop. No change in mentation. No head injury. No headache. No paralysis. No paresthesia. Psychiatric: No depression. No anxiety. No mood swings. Endocrine: No abnormal blood sugars. PHYSICAL EXAMINATION Gen: This is a 64-year-old female. She is sitting up in bed and appears to be comfortable and in no acute distress. HEENT: Head is atraumatic, normocephalic. Pupils equal, round. Sclerae is anicteric. NECK: Supple. No JVD. No lymphadenopathy. No thyromegaly. LUNGS: Clear to auscultation. No wheezes or rhonchi. No intercostal retractions. HEART: Regular rate and rhythm. No murmur. ABDOMEN: Soft. Bowel sounds are present. No masses. No tenderness. EXTREMITIES: No pedal edema. No calf tenderness. Dorsalis pedis +2 bilaterally. NEUROLOGICAL: Patient is awake, alert and oriented x3. Cranial nerves 2 through 12 are grossly intact. ASSESSMENT AND PLAN 1. Acute kidney injury secondary to poor oral intake, vomiting or diarrhea most likely secondary to chemotherapy. Continue IV fluids D5.45 normal saline with 20 of KCl at 125 mL per hour. 2. Severe hypokalemia secondary to dehydration, status post replacement. Continue to monitor 3. Pancytopenia secondary to chemotherapy. Patient is status post transfusion of 1 unit each platelets and packed RBCs. 4. Acute urinary tract infection ruled out. 5. Elevated liver function tests. 6. Metastatic colon cancer status post hysterectomy and bilateral salpingo- oophorectomy in August and currently undergoing chemotherapy. Consult with oncology. 7. History of colon cancer status post hemicolectomy in December [address] Kulkarni. 8. Hypertension. Continue lisinopril increased to 30 mg twice daily, hydralazine IV as needed for systolic blood pressure greater than 160. 9. History of breast cancer status post lumpectomy and radiation. Continue tamoxifen. 10. DVT prophylaxis. Hold heparin secondary to thrombocytopenia. 11. GI prophylaxis. Protonix. DISCHARGE PLAN Home most likely on Thursday. Impression and plan of care have been directed as dictated by the signing physician. Opal Moreno nurse practitioner acting as scribe for signing physician. Objective - Vital Signs Vital signs: Vital Signs Temp 98 F 05/07/20 04:47 Pulse 83 05/07/20 04:47 Resp 18 05/07/20 04:47 BP 170/82 05/07/20 04:47 Pulse Ox 99 05/07/20 04:47 Intake & Output 05/06/20 05/07/20 05/07/20 18:59 06:59 18:59 Intake Total 2770 Balance 2770 Intake: Intake, IV Titration 1550 Amount D5-0.9% NaCl with KCl 20 1500 Meq/l 1,000 ml @ 125 mls/ hr IV .Q8H [facility] Rx#: [id number] cefTRIAXone 1 gm In 50 Sodium Chloride 0.9% 50 ml @ 100 mls/hr IVPB Q24HR [facility] Rx#:[id number] Oral 1220 Other: # Voids 4 1 # Bowel Movements 0 - Labs CBC & Chem 7: 05/07/20 04:18 05/07/20 04:18 Labs: Abnormal Lab Results - Last 24 Hours (Table) 05/06/20 05/06/20 Range/Units 05:51 05:51 RBC 2.17 L (4.10-5.20) X 10*6/uL Hgb 7.5 L (12.0-15.0) g/dL Hct 21.8 L (37.2-46.3) % MCV 100.5 H (80.0-97.0) fL MCH 34.6 H (27.0-32.0) pg RDW 18.2 H (11.5-14.5) % Plt Count 12 L* (140-440) X 10*3/uL Plt Count Comment A Absolute Nucleated RBC 0.06 H (0.00-0.00) X 10*3/uL NRBC/100 WBC Diff 1.3 H (0.0-0.0) /100 WBCS Immature Plt Fraction 19.7 H (1.1-6.1) % Sodium 146 H (135-145) mmol/L Potassium 3.4 L (3.5-5.5) mmol/L Chloride 119 H (96-109) mmol/L Anion Gap 2.00 L (4.00-12.00) mmol/L BUN <5.0 L (9.0-27.0) mg/dL Calcium 7.8 L (8.7-10.3) mg/dL AST 91 H (13-35) U/L ALT 154 H (8-44) U/L Alkaline Phosphatase 163 H (41-126) U/L Total Protein 4.4 L (6.2-8.2) g/dL Albumin 2.80 L (3.80-4.90) g/dL Microbiology - Last 24 Hours (Table) 05/02/20 01:15 Stool Culture - Final Stool 05/02/20 22:22 Blood Culture - Preliminary Blood No Growth after 96 hours 05/02/20 17:30 Blood Culture - Preliminary Blood No Growth after 96 hours
--- NOTE | 2020-05-07 11:05 | XR ---
EXAMINATION TYPE: XR chest 1V portable DATE OF EXAM: 05/07/2020 COMPARISON: 12/23/2017 INDICATION: Short of breath TECHNIQUE: Single frontal view of the chest is obtained. FINDINGS: The heart size is normal. The pulmonary vasculature is normal. The lungs are clear. Port is present on the right with the tip in the superior vena cava region. IMPRESSION: 1. No acute pulmonary process.
--- NOTE | 2020-05-07 14:10 | P.PN ---
Subjective Progress Note Date: 05/07/20 Principal diagnosis: metastatic colon Overall improving, diarrhea improved, however she did have a bout of nausea and vomiting this am. Objective - Vital Signs Vital signs: Vital Signs Temp 98.2 F 05/07/20 12:21 Pulse 78 05/07/20 12:21 Resp 16 05/07/20 12:21 BP 121/67 05/07/20 12:21 Pulse Ox 99 05/07/20 12:21 Intake & Output 05/06/20 05/07/20 05/07/20 18:59 06:59 18:59 Intake Total 2770 Balance 2770 Intake: Intake, IV Titration 1550 Amount D5-0.9% NaCl with KCl 20 1500 Meq/l 1,000 ml @ 125 mls/ hr IV .Q8H [facility] Rx#: [id number] cefTRIAXone 1 gm In 50 Sodium Chloride 0.9% 50 ml @ 100 mls/hr IVPB Q24HR [facility] Rx#:[id number] Oral 1220 Other: # Voids 4 1 # Bowel Movements 0 - Exam - Constitutional General appearance: no acute distress - EENT Eyes: EOMI, PERRLA ENT: hearing grossly normal, normal oropharynx - Neck Neck: no lymphadenopathy Thyroid: bilateral: normal size - Respiratory Respiratory: bilateral: CTA - Cardiovascular Rhythm: regular Heart sounds: normal: S1, S2 - Gastrointestinal General gastrointestinal: normal bowel sounds, soft Localized gastrointestinal: tender: RUQ - Integumentary Integumentary: normal - Neurologic Neurologic: CNII-XII intact - Musculoskeletal Musculoskeletal: strength equal bilaterally - Psychiatric Psychiatric: A&O x's 3, appropriate affect - Labs CBC & Chem 7: 05/07/20 04:18 05/07/20 04:18 Labs: Abnormal Lab Results - Last 24 Hours (Table) 05/07/20 05/07/20 Range/Units 04:18 04:18 RBC 2.23 L (4.10-5.20) X 10*6/uL Hgb 7.7 L (12.0-15.0) g/dL Hct 22.6 L (37.2-46.3) % MCV 101.3 H (80.0-97.0) fL MCH 34.5 H (27.0-32.0) pg RDW 18.2 H (11.5-14.5) % Plt Count 15 L* (140-440) X 10*3/uL Plt Count Comment DECREASED A Absolute Nucleated RBC 0.06 H (0.00-0.00) X 10*3/uL NRBC/100 WBC Diff 0.9 H (0.0-0.0) /100 WBCS Immature Plt Fraction 24.7 H (1.1-6.1) % Sodium 146 H (135-145) mmol/L Chloride 117 H (96-109) mmol/L BUN <5.0 L (9.0-27.0) mg/dL Calcium 7.9 L (8.7-10.3) mg/dL AST 65 H (13-35) U/L ALT 139 H (8-44) U/L Alkaline Phosphatase 173 H (41-126) U/L Total Protein 4.4 L (6.2-8.2) g/dL Albumin 2.80 L (3.80-4.90) g/dL Microbiology - Last 24 Hours (Table) 05/02/20 01:15 Stool Culture - Final Stool 05/02/20 22:22 Blood Culture - Preliminary Blood No Growth after 96 hours 05/02/20 17:30 Blood Culture - Preliminary Blood No Growth after 96 hours Assessment and Plan (1) RUKHSANA (acute kidney injury) Current Visit: Yes Status: Acute Code(s): N17.9 - ACUTE KIDNEY FAILURE, UNSPECIFIED SNOMED Code(s): 41478997 (2) Dehydration Current Visit: Yes Status: Acute Priority: High Code(s): E86.0 - DEH YDRATION SNOMED Code(s): 51979836 (3) Hypokalemia Current Visit: Yes Status: Acute Code(s): E87.6 - HYPOKALEMIA SNOMED Code(s): 67963395 (4) Antineoplastic chemotherapy induced anemia Current Visit: No Status: Acute Priority: Medium Code(s): D64.81 - ANEMIA DUE TO ANTINEOPLASTIC CHEMOTHERAPY; T45.1X5A - ADVERSE EFFECT OF ANTINEOPLASTIC AND IMMUNOSUP DRUGS, INIT SNOMED Code(s): 747895640 (5) Colon cancer Current Visit: No Status: Acute Priority: High Code(s): C18.9 - MALIGNANT NEOPLASM OF COLON, UNSPECIFIED SNOMED Code(s): 796610325 (6) Drug-induced diarrhea Current Visit: No Status: Acute Priority: High Code(s): K52.1 - TOXIC GASTROENTERITIS AND COLITIS SNOMED Code(s): 090193924 (7) Breast cancer Current Visit: No Status: Chronic Priority: Medium Code(s): C50.919 - MALIGNANT NEOPLASM OF UNSP SITE OF UNSPECIFIED FEMALE BREAST SNOMED Code(s): 247694800 Plan: Assessment and Recommendations: Slow advancement of diet Continue bedesomide as questran not tolerated Pancytopenia: - Secondary to chemotherapy Physician Attest: I have completed the full history and physical and agree with above dictation, dictated as a scribe
[2020-05-07] MEDS: lisinopriL 10 MG TAB PO SCH (20:57)
[2020-05-07] MEDS: OLANZapine 5 MG TAB PO SCH (20:58)
[2020-05-08] MEDS: LOPERAMIDE 2 MG CAP PO SCH ×4 (03:01→11:38)
[2020-05-08] MEDS: D5-0.45% NACL WITH KCL 20MEQ/L 1,000 ML IV SCH ×2 (03:01→10:09)
[2020-05-08] MEDS: DIPHENOX-ATROP 2.5-0.025 MG 1 EACH TAB PO SCH ×5 (03:02→14:34)
[2020-05-08] MEDS: ESCITALOPRAM 10 MG TAB PO SCH (08:01)
[2020-05-08] MEDS: TAMOXIFEN 10 MG TAB PO SCH (08:01)
[2020-05-08] MEDS: PANTOPRAZOLE 40 MG/10 ML VIAL IVP SCH (08:01)
[2020-05-08] MEDS: lisinopriL 10 MG TAB PO SCH (08:01)
[2020-05-08] MEDS: CHOLECALCIFEROL 25 MCG (1000 IU) TABLET PO SCH (08:01)
[2020-05-08] MEDS: BUDESONIDE ER 3 MG CAPSULE.ER PO SCH (08:01)
[2020-05-08] MEDS: CYANOCOBALAMIN 500 MCG TAB PO SCH (08:01)
[2020-05-08] MEDS: MULTIVITAMINS, THERA 1 EACH TAB PO SCH (08:01)
[2020-05-08] MEDS: FOLIC ACID-VIT B COMPLEX-VIT C 1 CAP PO SCH (08:02)
[2020-05-08] MEDS: MAG HYDROX/AL HYDROX/SIMETH 30 ML, diphenhydrAMINE ELIXIR 75 MG, LIDOCAINE VISCOUS 30 ML PO SCH ×3 (08:02)
--- NOTE | 2020-05-08 09:00 | P.DS ---
Providers Date of admission: 05/02/20 19:50 Expected date of discharge: 05/08/20 Attending physician: Gama Garza Consults: 05/02/20 19:51 Consult Physician Routine Consulting Provider: Nadeem Barakat Consult Reason/Comments: Dehydration, acute kidney injury, hypokalemia Do you want consulting provider notified?: Yes Primary care physician: Josefa Asif [facility] Course: HISTORY OF PRESENT ILLNESS This is a 62-year-old female patient of Dr. Asif with past medical history of hypertension, left-sided breast cancer status post radiation therapy, colon cancer status post hemicolectomy in December 2017. Please see oncology note regarding history. Status post bowel resection with bilateral salpingo- oophorectomy and total abdominal hysterectomy laparoscopically on 09/01/19, pathology consistent with colon primary. He is status post left scalp cholecystectomy in January 2020. Patient has had nausea, vomiting and diarrhea for the past month. Last chemotherapy 1 week ago. Patient received IV hydration at [facility] and was discharged home but she went home and continued to have vomiting and feeling sick. She received a call from Mia Colmenares NP and was instructed to come into the hospital for further evaluation and treatment due to abnormal kidney and liver labs. Patient presented to [facility] emergency center. Patient was afebrile, heart rate 105, blood pressure 112/60, pulse ox 99% on room air. EKG was in normal sinus with no acute ST changes. W BC 7.4, hemoglobin 9.6, platelet count 30. Sodium 135, potassium 2.7 chloride 102, CO2 22, BUN 43 and creatinine 1.69. Blood sugar 148. Magnesium 1.8. Total bilirubin 0.6, AST 114, ALT 139, alkaline phosphatase 231. Amylase and lipase normal. Lactic acid 1.2. A C. difficile toxin negative. Coronavirus not detected. Patient was started on Lomotil, potassium was replaced and patient received 1 L of IV fluid, admitted to the oncology unit and consult with oncology. 05/04: Renal ultrasound revealed limited visualization of the kidneys. Slightly small size suggestive of chronic medical renal disease. No hydronephrosis. MRI of the brain revealed no suspicious change suggestive of metastatic disease. Mild chronic appearing periventricular white matter ischemic change. Liver ultrasound was normal post cholecystectomy. The patient states that she was still vomiting until this morning. She feels that the nausea is a little bit better. We did recommend trying a scopolamine patch next if she would like but wouldn't prefer to hold. We will try to advance her diet to clear liquids. She has been afebrile, heart rate 81, blood pressure 109/53, pulse ox 100% on room air. Repeat blood work reveals WBC 3.2, hemoglobin 6.9, platelet count 9. Sodium 140, potassium 3.5, chloride 115, CO2 22, BUN and creatinine 0.98. Blood sugar 112. Calcium 8.0. Total bilirubin 0.6, AST 117, ALT 143, alkaline phosphatase 153. URine culture no growth at 18 hours and ceftriaxone will be discontinued. 05/05 patient complains of improving on nausea, no new diarrhea this time, it has settled however whenever patient would eat, Diuril again would restart specially after meals. It is improving specially acid within several days since her last chemotherapy. Patient denies any fever no chills, vitals are stable, creatinine has improved with creatinine of 0.8, T-max of 98.1, nonlabored breathing, blood pressure from 138/74 heart rate of 66, 99% on room air. Hemoglobin currently at 7.6 from a previous of 6.9, platelet is low at 20, without any overt signs of bleeding. Patient denies any chest pain hemoptysis GI bleed and no palpitations. Oncology is following, with a bubble discharge on Thursday. Still unclear liquid diet, which would be advanced tomorrow 05/06, patient still has some nausea, however she has tolerated some of the full liquid diet that was initiated, no fever, no chills still has diarrhea, vitals are stable, WBC count 4.6 better, hemoglobin stable 7.5 unchanged, platelet count diminished [address] Dockery notified of the low platelet count, patient denies any overuse bleeding, there is diminution of the mild sore discomfort, however she shows some minor improvement today. She is on oral budesonide and Lomotil to Imodium, Questran he recommends platelet infusion under less than 10, and blood transfusion for hemoglobin less than 7 05/07: Patient has been afebrile, heart rate 83, blood pressure 170/82, pulse ox 99% on room air. Patient has been resumed on lisinopril which will be increased to 30 g twice daily. Repeat blood work reveals CBC of 6.8, hemoglobin 7.7 platelet count 15. Sodium 146, potassium 3.9, chloride 117, CO2 24, BUN less than 5, creatinine 0.7. AST 65, ALT 139, alkaline phosphatase 173. Stool culture showed no Salmonella Shigella Campylobacter, no E. coli 0157, no E. coli Shiga toxin. Urine culture finalized with no growth. Blood cultures negative at 96 hours. Patient is status post transfusion of 1 unit of platelets and 1 unit of packed RBCs on May 04. Patient states that she ate this morning and took her medications and shortly after that she vomited. We have added in a scopolamine patch if she would like to take it. IV fluids will be changed to D5 and half-normal saline with KCl. The patient denies having any abdominal pain but did have some cramping with vomiting. She states she is still having diarrhea 2 times this morning and it usually occurs after meals. Diarrhea is overall improving. Discussed case with Dr. James and if patient remains stable, most likely she'll be cleared for discharge tomorrow. 05/08: Chest x-ray reveals no acute pulmonary process. Coronavirus not detected. Patient has been afebrile, heart rate 87, blood pressure 130/77, pulse ox 99% on room air. Repeat blood work revealsand CBC 6.6, hemoglobin 8.7, platelet count 19.sodium 140, potassium 3.7, chloride 111, CO2 26, BUN less than 2, creatinine 0.73. Blood sugar 107. Calcium 7.9,magnesium 1.1 and will be replaced prior to discharge. Total bilirubin 0.3, AST 52, ALT 109, alkaline phosphatase 169. Patient has been cleared for discharge by oncology. Patient will be discharged home today in stable condition. DISCHARGE DIAGNOSES 1. Acute kidney injury secondary to poor oral intake, vomiting or diarrhea most likely secondary to chemotherapy. 2. Severe hypokalemia secondary to dehydration, status post replacement. 3. Pancytopenia secondary to chemotherapy. 4. Acute urinary tract infection ruled out. 5. Elevated liver function tests. 6. Metastatic colon cancer status post hysterectomy and bilateral salpingo- oophorectomy in August and currently undergoing chemotherapy. 7. History of colon cancer status post hemicolectomy in December [address] Kulkarni. 8. Hypertension. 9. History of breast cancer status post lumpectomy and radiation. DISCHARGE PLAN Home Impression and plan of care have been directed as dictated by the signing physician. Opal Moreno nurse practitioner acting as scribe for signing physician. Patient Condition at Discharge: Good Plan - Discharge Summary New Discharge Prescriptions: New Budesonide [Budesonide ER] 9 mg PO DAILY #30 tabdr...er Valsartan [Diovan] 160 mg PO DAILY #30 tablet Dicyclomine [Bentyl] 10 mg PO TID #90 capsule Scopolamine 1.5MG/72Hr Patch [TransDerm Scop] 1 patch TRANSDERM Q72H #10 patch OLANZapine [ZyPREXA] 5 mg PO HS tab Continue Cyanocobalamin [Vitamin B-12] 500 mcg PO DAILY Multivitamins, Thera [Multivitamin (formulary)] 1 tab PO DAILY Tamoxifen Citrate 20 mg PO DAILY Calcium And Magnesium Oral Tab (Unknown Strength) 1 tab PO DAILY Escitalopram Oxalate [Lexapro] 10 mg PO DAILY Prochlorperazine [Compazine] 10 mg PO TID PRN PRN Reason: Nausea And Vomiting Loperamide [Imodium] 2 mg PO Q3H Diphenox-Atrop 2.5-0.025 mg [Lomotil] 1 tab PO Q3H Vitamin B Complex 1 cap PO DAILY Cyanocobalamin [Vitamin B-12] 500 mcg PO DAILY Cholecalciferol [Vitamin D3 (25 Mcg = 1000 Iu)] 50 mcg PO DAILY Discontinued lisinopriL [Prinivil] 20 mg PO BID@0900,1800 Discharge Medication List Cyanocobalamin [Vitamin B-12] 500 mcg PO DAILY 07/10/17 [History] Multivitamins, Thera [Multivitamin (formulary)] 1 tab PO DAILY 07/10/17 [History] Tamoxifen Citrate 20 mg PO DAILY 12/16/17 [History] Calcium And Magnesium Oral Tab (Unknown Strength) 1 tab PO DAILY 01/20/20 [History] Escitalopram Oxalate [Lexapro] 10 mg PO DAILY 01/20/20 [History] Cholecalciferol [Vitamin D3 (25 Mcg = 1000 Iu)] 50 mcg PO DAILY 05/02/20 [History] Cyanocobalamin [Vitamin B-12] 500 mcg PO DAILY 05/02/20 [History] Diphenox-Atrop 2.5-0.025 mg [Lomotil] 1 tab PO Q3H 05/02/20 [History] Loperamide [Imodium] 2 mg PO Q3H 05/02/20 [History] Prochlorperazine [Compazine] 10 mg PO TID PRN 05/02/20 [History] Vitamin B Complex 1 cap PO DAILY 05/02/20 [History] Budesonide [Budesonide ER] 9 mg PO DAILY #30 tabdr...er 05/08/20 [Rx] Dicyclomine [Bentyl] 10 mg PO TID #90 capsule 05/08/20 [Rx] OLANZapine [ZyPREXA] 5 mg PO HS tab 05/08/20 [Rx] Scopolamine 1.5MG/72Hr Patch [TransDerm Scop] 1 patch TRANSDERM Q72H #10 patch 05/08/20 [Rx] Valsartan [Diovan] 160 mg PO DAILY #30 tablet 05/08/20 [Rx] Follow up Appointment(s)/Referral(s): Josefa Asif MD [Primary Care Provider] - 05/11/20 10:00 am Patient Instructions/Handouts: Scopolamine (Absorbed through the skin), Dicyclomine (By mouth), Valsartan (By mouth), Budesonide (By mouth), Dehydration (DC), Acute Kidney Injury (DC), Hypokalemia (DC), Pancytopenia (DC)
[2020-05-08 09:05] LABS: ALT 109 U/L (4-34); AST 52 U/L (14-36); African American GFR (CKD) >90 (>60 ml/min/1.73 sqM); Albumin 2.6 g/dL (3.5-5.0); Alkaline Phosphatase 169 U/L (38-126); Anion Gap 3 mmol/L; Blood Urea Nitrogen <2 mg/dL (7-17); Calcium 7.9 mg/dL (8.4-10.2); Carbon Dioxide 26 mmol/L (22-30); Chloride 111 mmol/L (98-107); Globulin 2.5 g/dL; Glucose 107 mg/dL (74-99); Magnesium 1.1 mg/dL (1.6-2.3); Non-African American GFR(CKD) 88 (>60 ml/min/1.73 sqM); Potassium 3.7 mmol/L (3.5-5.1); Sodium 140 mmol/L (137-145); Total Bilirubin 0.3 mg/dL (0.2-1.3); Total Protein 5.1 g/dL (6.3-8.2)
[2020-05-08 09:08] LABS: Anisocytosis Slight; Basophils % (A) 0 %; Eosinophils # (A) 0.1 k/uL (0-0.7); Eosinophils % (A) 1 %; HCT 25.8 % (34.0-46.0); HGB 8.7 gm/dL (11.4-16.0); Lymphocytes # (A) 1.7 k/uL (1.0-4.8); Lymphocytes % (A) 26 %; MCHC 33.7 g/dL (31.0-37.0); MCV 100.7 fL (80.0-100.0); Macrocytosis Moderate; Mean Platelet Volume 16.6; Monocytes # (A) 0.3 k/uL (0-1.0); Monocytes % (A) 5 %; Neutrophils # (A) 4.4 k/uL (1.3-7.7); Neutrophils % (A) 67 %; RBC 2.56 m/uL (3.80-5.40); RDW 18.5 % (11.5-15.5); WBC 6.6 k/uL (3.8-10.6)
[2020-05-08 09:11] LABS: Platelet Count 19 k/uL (150-450)
[2020-05-08 09:28] LABS: Poikilocytosis (M) Present
[2020-05-08] MEDS: CHOLESTYRAMINE (WITH SUGAR) 4 GM PACKET PO SCH (10:09)
[2020-05-08] MEDS ORDERED: Magnesium Replacement Protocol 1 EACH MISC MISCELLANE PRN (10:39)
[2020-05-08] MEDS: MAGNESIUM SULFATE-D5W PMX 1 GM in DEXTROSE/WATER 1 100ML.BAG IVPB SCH ×3 (10:57→13:13)
[2020-05-08 12:38] VITALS: BP 131/76; PULSE 75; RESP 17; TEMP 98
--- NOTE | 2020-05-08 16:55 | P.PN ---
Subjective Progress Note Date: 05/08/20 Principal diagnosis: metastatic colon Improve today planning discharge Objective - Vital Signs Vital signs: Vital Signs Temp 98.0 F 05/08/20 12:37 Pulse 75 05/08/20 12:37 Resp 17 05/08/20 12:37 BP 131/76 05/08/20 12:37 Pulse Ox 97 05/08/20 12:37 Intake & Output 05/07/20 05/08/20 05/08/20 18:59 06:59 18:59 Intake Total 1000 Output Total 1 Balance -1 1000 Intake: Intake, IV Titration 1000 Amount D5-0.45% NaCl with KCl 1000 20Meq/l 1,000 ml @ 125 mls/hr IV .Q8H ESME Rx#: [id number] Output: Emesis 1 Other: Voiding Method Toilet # Voids 1 # Bowel Movements 3 - Exam - Constitutional General appearance: no acute distress - EENT Eyes: EOMI, PERRLA ENT: hearing grossly normal, normal oropharynx - Neck Neck: no lymphadenopathy Thyroid: bilateral: normal size - Respiratory Respiratory: bilateral: CTA - Cardiovascular Rhythm: regular Heart sounds: normal: S1, S2 - Gastrointestinal General gastrointestinal: normal bowel sounds, soft Localized gastrointestinal: tender: RUQ - Integumentary Integumentary: normal - Neurologic Neurologic: CNII-XII intact - Musculoskeletal Musculoskeletal: strength equal bilaterally - Psychiatric Psychiatric: A&O x's 3, appropriate affect - Labs CBC & Chem 7: 05/08/20 08:06 05/08/20 08:06 Labs: Abnormal Lab Results - Last 24 Hours (Table) 05/08/20 05/08/20 Range/Units 08:06 08:06 RBC 2.56 L (3.80-5.40) m/uL Hgb 8.7 L D (11.4-16.0) gm/dL Hct 25.8 L (34.0-46.0) % MCV 100.7 H (80.0-100.0) fL RDW 18.5 H (11.5-15.5) % Plt Count 19 L* D (150-450) k/uL Chloride 111 H (98-107) mmol/L BUN <2 L (7-17) mg/dL Glucose 107 H (74-99) mg/dL Calcium 7.9 L (8.4-10.2) mg/dL Magnesium 1.1 L (1.6-2.3) mg/dL AST 52 H (14-36) U/L ALT 109 H (4-34) U/L Alkaline Phosphatase 169 H (38-126) U/L Total Protein 5.1 L (6.3-8.2) g/dL Albumin 2.6 L (3.5-5.0) g/dL Microbiology - Last 24 Hours (Table) 05/02/20 22:22 Blood Culture - Preliminary Blood No Growth after 120 hours 05/02/20 17:30 Blood Culture - Preliminary Blood No Growth after 120 hours Assessment and Plan (1) RUKHSANA (acute kidney injury) Status: Acute Code(s): N17.9 - ACUTE KIDNEY FAILURE, UNSPECIFIED SNOMED Code(s): 13829791 (2) Dehydration Status: Acute Priority: High Code(s): E86.0 - DEHYDRATION SNOMED Code(s): 11251906 (3) Hypokalemia Status: Acute Code(s): E87.6 - HYPOKALEMIA SNOMED Code(s): 63594855 (4) Antineoplastic chemotherapy induced anemia Status: Acute Priority: Medium Code(s): D64.81 - ANEMIA DUE TO ANTINEOPLASTIC CHEMOTHERAPY; T45.1X5A - ADVERSE EFFECT OF ANTINEOPLASTIC AND IMMUNOSUP DRUGS, INIT SNOMED Code(s): 991750795 (5) Colon cancer Status: Acute Priority: High Code(s): C18.9 - MALIGNANT NEOPLASM OF COLON, UNSPECIFIED SNOMED Code(s): 461433464 (6) Drug-induced diarrhea Status: Acute Priority: High Code(s): K52.1 - TOXIC GASTROENTERITIS AND COLITIS SNOMED Code(s): 414927127 (7) Breast cancer Status: Chronic Priority: Medium Code(s): C50.919 - MALIGNANT NEOPLASM OF UNSP SITE OF UNSPECIFIED FEMALE BREAST SNOMED Code(s): 470269232 Plan: Assessment and Recommendations: Slow advancement of diet Continue bedesomide as questran not tolerated Pancytopenia: - Secondary to chemotherapy Follow-up this week Physician Attest: I have completed the full history and physical and agree with above dictation, dictated as a scribe
== END 2020-05-08 14:56 | disposition home or self-care (01) | DRG 393 ==
LOC: EC 16:38 → 5NMEDONC 19:50
PROVIDERS: ADMIT Internal Medicine Geriatric Medicine; ATTEND Internal Medicine Geriatric Medicine
PROC: 30243R1 Transfusion of Nonautologous Platelets into Central Vein, Percutaneous Approach (ICD-10-PCS; principal; 2020-05-04)
PROC: 30243N1 Transfusion of Nonautologous Red Blood Cells into Central Vein, Percutaneous Approach (ICD-10-PCS; 2020-05-04)
DX: K52.1 Toxic gastroenteritis and colitis (principal); D61.810 Antineoplastic chemotherapy induced pancytopenia; N17.9 Acute kidney failure, unspecified; C79.62 Secondary malignant neoplasm of left ovary; C79.61 Secondary malignant neoplasm of right ovary; Z20.822 Contact with and (suspected) exposure to COVID-19; E86.0 Dehydration; E87.6 Hypokalemia; K21.9 Gastro-esophageal reflux disease without esophagitis; I10 Essential (primary) hypertension; R94.5 Abnormal results of liver function studies; T45.1X5A Adverse effect of antineoplastic and immunosuppressive drugs, initial encounter; Z79.899 Other long term (current) drug therapy; Z85.3 Personal history of malignant neoplasm of breast; Z90.710 Acquired absence of both cervix and uterus; Z98.890 Other specified postprocedural states; Z92.3 Personal history of irradiation; Z95.828 Presence of other vascular implants and grafts; Z87.891 Personal history of nicotine dependence; Z90.49 Acquired absence of other specified parts of digestive tract; Z85.038 Personal history of other malignant neoplasm of large intestine; Z82.5 Family history of asthma and other chronic lower respiratory diseases; Z82.49 Family history of ischemic heart disease and other diseases of the circulatory system; Z80.1 Family history of malignant neoplasm of trachea, bronchus and lung; Z82.0 Family history of epilepsy and other diseases of the nervous system; Z80.2 Family history of malignant neoplasm of other respiratory and intrathoracic organs
CPT/HCPCS: 36415; 70553; 71045; 76705; 76770; 80053; 81001; 82150; 82378; 83605; 83630; 83690; 83735; 84100; 85025; 85027; 85610; 85730; 86850; 86900; 86901; 86920; 87040; 87045; 87046; 87086; 87324; 87635; 93005; 94760; 96361; 96374; 99285

== ENCOUNTER → 2020-06-05 | Outpatient (CLI) | payer BC ==
--- NOTE | 2020-06-05 16:16 | CT ---
EXAMINATION TYPE: CT ChestAbdPelvis w con DATE OF EXAM: 06/05/2020 COMPARISON: CT abdomen and pelvis January 20, 2020 and older studies. HISTORY: Malignant neoplasm of ascending colon. Pt reporting no issues. CT DLP: 770.7 mGycm. Automated Exposure Control for Dose Reduction was Utilized. CONTRAST: CT scan of the thorax, abdomen and pelvis is performed with oral and with IV Contrast, patient inject ed with 100 mL of Isovue 300. FINDINGS: LUNGS: There is stable 9 mm left lower lobulated lobe nodule abutting fissure axial image 36 from mos t recent CT. Anterior reticulation without mid to lower lung from prior radiation treatment redemonst rated. No new or enlarging greater than 6 mm nodules. Background mild underlying emphysematous change in the upper lungs with mild biapical parenchymal scarring. There is no pleural effusion or pneumot horax seen. The tracheobronchial tree is patent. MEDIASTINUM: There are no greater than 1 cm hilar or mediastinal lymph nodes. No pericardial effusi on is seen. Heart size upper limits of normal. Coronary artery calcification is redemonstrated. OTHER: Stable right subclavian Mediport catheter. Lumpectomy changes medially left breast redemonstra rizwan. LIVER/GB: Cholecystectomy clips are now present. PANCREAS: No significant abnormality is seen. SPLEEN: No significant abnormality is seen. ADRENALS: No significant abnormality is seen. KIDNEYS: No significant abnormality is seen. BOWEL: Oral contrast reaches level of rectum. There is prior partial colectomy changes redemonstrated . No suspicious small or large bowel dilatation. GENITAL ORGANS: Uterus is surgically absent. Scattered greater than right bilateral pelvic phleboliths. LYMPH NODES: No greater than 1cm abdominal or pelvic lymph nodes are appreciated. OSSEOUS STRUCTURES: No significant abnormality is seen. OTHER: There is 1.9 cm thin-walled cyst or cystic lesion posterior left gluteal region axial image 79 redemonstrated presumed benign and dermatologic in origin. Mild to moderate calcified plaque of the aorta extends into branch vessels IMPRESSION: No new suspicious mass or adenopathy to suggest active neoplastic recurrence.
== END | disposition home or self-care (01) ==
LOC: RADPROMAIN 13:46
PROVIDERS: ATTEND Internal Medicine Hematology & Oncology
DX: Z03.89 Encounter for observation for other suspected diseases and conditions ruled out (principal); C18.2 Malignant neoplasm of ascending colon
CPT/HCPCS: 82565; 84520; 71260; 74177; 36415; Q9967

== ENCOUNTER → 2020-07-24 | Outpatient (CLI) | payer MEDICARE, BC ==
--- NOTE | 2020-07-24 12:01 | XR ---
EXAMINATION TYPE: XR cervical spine limited DATE OF EXAM: 07/24/2020 Comparison: None Clinical History: 65-year-old female M54.12 CERVICAL RADICULOPATHY Findings: Right anterior chest wall injection port noted with subclavian access. Mild anterior and plate spondy losis C4-C7 levels. No prevertebral soft tissue swelling or predental space widening. Facet arthropat hy lower cervical spine. The cervicothoracic junction is obscured by the patient's shoulders not asse ssed. Remaining cervical alignment is maintained. Impression: 1. Cervicothoracic junction obscured by the patient's shoulders and not assessed. 2. Mild anterior endplate spondylosis C4-C7 levels and facet arthropathy here as well.
== END | disposition home or self-care (01) ==
LOC: RADXRMAIN 08:56
PROVIDERS: ATTEND Family Medicine
DX: M47.22 Other spondylosis with radiculopathy, cervical region (principal)
CPT/HCPCS: 72040

== ENCOUNTER → 2020-08-27 | Outpatient (CLI) | payer MEDICARE, BC ==
[2020-08-27 18:27] LABS: HCT 37.2 % (37.2-46.3); HGB 11.8 g/dL (12.0-15.0); MCH 33.7 pg (27.0-32.0); MCHC 31.7 g/dL (32.0-37.0); MCV 106.3 fL (80.0-97.0); Mean Platelet Volume 10.6 fL (9.5-12.2); Platelet Count 163 X 10*3/uL (140-440); WBC 4.28 X 10*3/uL (4.50-10.00)
[2020-08-27 18:58] LABS: Protein, Total 6.7 g/dL (6.2-8.2)
[2020-08-27 19:06] LABS: ALT 31 U/L (8-44); AST 38 U/L (13-35); African American GFR (CKD) 77.8 (60.0-200.0); Albumin/Globulin Ratio 1.52 (1.60-3.17); Alkaline Phosphatase 106 U/L (41-126); BUN/Creat Ratio 25.56 Ratio (12.00-20.00); C Reactive Protein <0.4 mg/dL (0.0-0.8); Calcium 9.6 mg/dL (8.7-10.3); Carbon Dioxide 27.8 mmol/L (21.6-31.8); Chloride 110 mmol/L (96-109); Chol/HDL Ratio 2.15; Cholesterol 191 mg/dL (0-200); Globulin 2.7 g/dL (1.6-3.3); Glucose 110 mg/dL (70-110); LDL Cholesterol,Calculated 79.4 mg/dL (0.0-131.0); Non-African American GFR(CKD) 67.1 (60.0-200.0); Potassium 4.7 mmol/L (3.5-5.5); Sodium 144 mmol/L (135-145); Total Bilirubin 0.4 mg/dL (0.3-1.2); Total Protein 6.8 g/dL (6.2-8.2)
[2020-08-27 19:10] LABS: Basophils # (A) 0.04 X 10*3/uL (0.00-0.10); Basophils % (A) 0.9 %; Eosinophils # (A) 0.09 X 10*3/uL (0.04-0.35); Eosinophils % (A) 2.1 %; Lymphocytes # (A) 1.82 X 10*3/uL (0.90-5.00); Lymphocytes % (A) 42.5 %; Neutrophils # (A) 2.02 X 10*3/uL (1.80-7.70); Neutrophils % (A) 47.3 %
[2020-08-27 19:15] LABS: Creatine Kinase 57 U/L (26-186); Uric Acid 4.8 mg/dL (2.9-7.7)
[2020-08-27 20:37] LABS: Hepatitis A Antibody IgM Non-Reactive (Non-Reactive); Hepatitis B Core IgM Non-Reactive (Non-Reactive); Hepatitis B Surface Antigen Non-Reactive (Non-Reactive); Hepatitis C IgG Antibody Non-Reactive (Non-Reactive)
[2020-08-27 21:21] LABS: Erythrocyte Sedimentation Rate 12 mm/Hr (0-30)
[2020-08-27 22:06] LABS: Cyclic Citrull Pep IgG Unit <0.5 U/mL; Cyclic Citrullinated Pep IgG NEGATIVE (NEGATIVE)
[2020-08-28 10:38] LABS: HLA B27 POSITIVE
[2020-08-28 14:20] LABS: Albumin 3.89 g/dL (3.80-4.90); Gamma Globulin 1.03 g/dL (0.70-1.50)
== END | disposition home or self-care (01) ==
LOC: LABWHC1 11:00
PROVIDERS: ATTEND Family Medicine
DX: E78.49 Other hyperlipidemia (principal); E55.9 Vitamin D deficiency, unspecified; D51.9 Vitamin B12 deficiency anemia, unspecified; M46.1 Sacroiliitis, not elsewhere classified; M13.0 Polyarthritis, unspecified; M25.552 Pain in left hip; M25.511 Pain in right shoulder; R74.01 Elevation of levels of liver transaminase levels
CPT/HCPCS: 36415; 80053; 80061; 80074; 82306; 82550; 82607; 84165; 84443; 84550; 85025; 85652; 86038; 86039; 86140; 86200; 86334; 86618; 86812

== ENCOUNTER → 2020-09-20 | Outpatient (CLI) | payer MEDICARE, BC ==
--- NOTE | 2020-09-21 07:35 | CT ---
EXAMINATION TYPE: CT ChestAbdPelvis w con DATE OF EXAM: 09/20/2020 INDICATION: colon and breast CA, obs for mets COMPARISON: 06/05/2020 CT DLP: 1043.1 mGycm CONTRAST: Performed with Oral Contrast and with IV Contrast, patient injected with 80 mL of Isovue 300. TECHNIQUE: Axial images at 5 mm thick sections. Reconstructed images in the coronal plane. Delayed images through the kidneys. FINDINGS: CT CHEST: Portion of the thyroid visualized is normal. Some minimal compressive atelectasis may be present within bilateral lung bases. There is a 0.6 cm nodule within the posterior right midlung. Series 5 image 40. This is new. There is a 1.2 cm oval nodule within the left lower lung field, series 5 image 36. This was present p reviously. No enlarged mediastinal or hilar adenopathy is evident. The ascending aorta diameter at the level of the main pulmonary artery is 2.9 cm. The main pulmonary artery diameter at the bifurcation is 2.[address] ABDOMEN: Stable subcutaneous density is present left flank. Series 4 image 47. Additional soft tis rich nodules in the left supragluteal region, series 4 image 81. Liver: Normal Spleen: Normal Pancreas: Normal Adrenal glands: The adrenal glands are normal. Gallbladder: Normal Kidneys: No masses are evident. No hydronephrosis is present. There is a 1.1 cm cortical renal cyst mid medial left kidney. Delayed images were obtained through the kidneys, which remain unremarkable . Aorta: Vascular calcification is within the aorta. Inferior vena cava: Normal. CT PELVIS: Loops of bowel within the abdomen and pelvis are normal. There are loops of bowel which are incom pletely distended or lack oral contrast limiting their evaluation. Appendix: Normal as visualized. Urinary bladder: Decompressed but otherwise unremarkable as visualized. Genitourinary structures: Uterus and ovaries are not identified. Osseous structures: No suspicious lytic or sclerotic lesions evident. IMPRESSIONS: 1. Two nodules, one of which is new in the left lung. 2. Two Stable subcutaneous nodules
== END | disposition home or self-care (01) ==
LOC: RADPROMAIN 13:51
PROVIDERS: ATTEND Internal Medicine Hematology & Oncology
DX: C50.919 Malignant neoplasm of unspecified site of unspecified female breast (principal); C18.9 Malignant neoplasm of colon, unspecified; C79.9 Secondary malignant neoplasm of unspecified site; R91.8 Other nonspecific abnormal finding of lung field
CPT/HCPCS: 82565; 84520; 71260; 74177; 36415; J1642; Q9967

== ENCOUNTER → 2020-10-24 | Outpatient (CLI) | payer MEDICARE, BC ==
--- NOTE | 2020-10-24 11:50 | MM ---
Reason for exam: additional evaluation requested from prior study. Last mammogram was performed 1 year and 1 month ago. History: Patient is postmenopausal, has history of ovarian cancer at age 64, has history of breast cancer at age 62, has history of high-risk lesion on a previous biopsy at age 62, and has history of colon cancer at age 62. Family history of breast cancer in paternal aunt at age 50 and breast cancer in paternal grandmother at age 50. Malignant MG pre op needle loc LT of the left breast, August 12, 2017. Lumpectomy of the left breast, August 12, 2017. High risk MG stereo VAD BX addl LT of the left breast, July 16, 2017. High risk MG stereo VAD BX RT of the right breast, July 16, 2017. Radiation therapy of the left breast, 2018. Took hormonal contraceptives for 1 year. Taking antineoplastic for 2 years beginning at age 62. Physical Findings: Nurse did not find any significant physical abnormalities on exam. MG 3D Diag Mammo W/Cad JERAMIE Bilateral CC and MLO view(s) were taken. Prior study comparison: September 20, 2019, bilateral MG 3d diag mammo w/cad JERAMIE. September 16, 2018, bilateral MG 3d diag mammo w/cad JERAMIE. The breast tissue is heterogeneously dense. This may lower the sensitivity of mammography. Stable post lumpectomy changes left breast. No significant new findings when compared with previous films. These results were verbally communicated with the patient and result sheet given to the patient on 10/24/20. ASSESSMENT: Benign, BI-RAD 2 RECOMMENDATION: Follow-up diagnostic mammogram of both breasts in 1 year.
== END | disposition home or self-care (01) ==
LOC: RADMAMWWP 10:53
PROVIDERS: ATTEND Radiology Radiation Oncology
DX: R92.8 Other abnormal and inconclusive findings on diagnostic imaging of breast (principal); Z78.0 Asymptomatic menopausal state; Z80.3 Family history of malignant neoplasm of breast; Z85.3 Personal history of malignant neoplasm of breast; Z85.43 Personal history of malignant neoplasm of ovary
CPT/HCPCS: 77066; G0279; 77062

== ENCOUNTER → 2020-12-05 | Outpatient (CLI) | payer MEDICARE, BC ==
[2020-12-05 13:11] LABS: African American GFR (CKD) >90 (>60 ml/min/1.73 sqM); Blood Urea Nitrogen 23 mg/dL (7-17); Non-African American GFR(CKD) 83 (>60 ml/min/1.73 sqM)
--- NOTE | 2020-12-05 14:42 | CT ---
EXAMINATION TYPE: CT ChestAbdPelvis w con DATE OF EXAM: 12/05/2020 COMPARISON: 09/20/2020 HISTORY: f/u colon ca CT DLP: 1155 mGycm CONTRAST: CT scan of the chest, abdomen and pelvis is performed with Oral Contrast and with IV Contrast, patien t injected with 100 mL of Isovue 300. CT Chest: LUNGS: The lungs are clear and free of infiltrate or atelectasis stable pulmonary nodule right lower lobe posteriorly measures 7 mm versus 6 mm. Stable lingular nodule measuring 1.1 cm versus 1.2 cm pre viously. No new nodules are seen at this time. No pleural effusion or CT evidence of interstitial roderick g disease. MEDIASTINUM: Thoracic aorta is of normal caliber. The heart is not enlarged. No evidence for media stinal mass or adenopathy. HILAR STRUCTURES: No evidence for mass. No hilar adenopathy is appreciated. OTHER: No significant abnormality. CONTRAST CT ABDOMEN AND PELVIS FINDINGS: LIVER/GB: Cholecystectomy clips are in place. No space occupying hepatic lesion. Biliary tree is of n ormal caliber. PANCREAS: No inflammation. No distinct mass. SPLEEN: No splenic enlargement. No lesion seen. ADRENALS: No nodule. No thickening. KIDNEYS/BLADDER: No hydronephrosis. No nephrolithiasis. No disctinct renal mass. BOWEL: Normal appendix. Normal bowel caliber. No inflammation. GENITAL ORGANS: No gross abnormality. LYMPH NODES: No greater than 1cm abdominal or pelvic lymph nodes are appreciated. AORTA: No significant abnormality. OSSEOUS STRUCTURES: No significant abnormality is seen. OTHER: No significant additional abnormality is seen. IMPRESSION: 1. 2 pulmonary nodules as noted. 2. No evidence for recurrent disease about the colon.
== END | disposition home or self-care (01) ==
LOC: RADCTMAIN 12:23
PROVIDERS: ATTEND Internal Medicine Hematology & Oncology
DX: R91.8 Other nonspecific abnormal finding of lung field (principal); Z85.038 Personal history of other malignant neoplasm of large intestine
CPT/HCPCS: 82565; 84520; 71260; 74177; 36415; Q9967

== ENCOUNTER → 2020-12-13 | Outpatient (CLI) | payer MEDICARE, BC ==
--- NOTE | 2020-12-13 13:00 | XR ---
EXAMINATION TYPE: XR bone survey complete DATE OF EXAM: 12/13/2020 COMPARISON: N 8 days ago ONE HISTORY: Monoclonal gammopathy. Bony calvarium : 2 views of the bony calvarium demonstrate no suspicious focal lytic lesion. Chest x-ray: Stable right subclavian Mediport catheter. No distinct focal lytic rib lesion. Spine: Two views of the cervical, thoracic and lumbar spines are submitted. Moderate multilevel ante rior spurring in the cervical spine. Exaggerated thoracic kyphosis with mild to moderate multilevel a nterior spurring. No distinct focal lytic lesion in the spine. PELVIS: Single view of the pelvis demonstrates no suspicious focal lytic lesion. Scattered bilateral pelvic phleboliths noted. UPPER EXTREMITIES: Two views of the upper extremities. Some demineralization is present. No suspiciou s focal lucent lesion. LOWER EXTREMITIES: 2 views of the lower extremities. No distinct focal lytic lesion in either femur. IMPRESSION: No distinct focal osseous lytic lesion.
== END | disposition home or self-care (01) ==
LOC: RADXRMAIN 12:02
PROVIDERS: ATTEND Internal Medicine Hematology & Oncology
DX: D47.2 Monoclonal gammopathy (principal)
CPT/HCPCS: 77075

== ENCOUNTER → 2021-02-20 | Outpatient (CLI) | payer MEDICARE, BC ==
--- NOTE | 2021-02-20 16:04 | CT ---
EXAMINATION TYPE: CT ChestAbdPelvis w con DATE OF EXAM: 02/20/2021 INDICATION: f/u breast and colon ca COMPARISON: 12/05/2020 CT DLP: 1409.4 mGycm CONTRAST: Performed with Oral Contrast and with IV Contrast, patient injected with 100 mL of Isovue 300. TECHNIQUE: Axial images at 5 mm thick sections. Reconstructed images in the coronal plane. Delayed images through the kidneys. FINDINGS: CT CHEST: Portion of the thyroid visualized is normal. There is a 0.9 cm nodule within the posterior right midlung. Series 4 image 37. This was present prev iously and previously measured 0.7 cm. Nodule within the lingula currently measures 1.3 cm. Prior abdoulaye surement 1.1 cm. Consider additional workup with PET CT. No enlarged mediastinal or hilar adenopathy is evident. The ascending aorta diameter at the level of the main pulmonary artery is 3.0 cm. The main pulmonary artery diameter at the bifurcation is 2.[address] ABDOMEN: Liver: Normal Spleen: Normal Pancreas: Normal Adrenal glands: The adrenal glands are normal. Gallbladder: Surgically absent Kidneys: No masses are evident. No hydronephrosis is present. No cysts are present. Delayed images were obtained through the kidneys, which remain unremarkable. Aorta: Vascular calcification is within the aorta. Inferior vena cava: Normal. CT PELVIS: Loops of bowel within the abdomen and pelvis are normal. There are loops of bowel which are incom pletely distended or lack oral contrast limiting their evaluation. Appendix: Visualized. There may be a prior resection of the ascending colon. Correlate with surgical history Urinary bladder: Normal. Genitourinary structures: Uterus is not identified. Adnexal regions are normal. Osseous structures: No suspicious lytic or sclerotic lesions. IMPRESSIONS: 1. Nodule in the posterior right lung is increased in size from 0.7 to 0.9 cm. Nodule within the ling renetta is increased to 1.3 cm from 1.[address] for additional workup.
== END | disposition home or self-care (01) ==
LOC: RADCTMAIN 10:13
PROVIDERS: ATTEND Internal Medicine Hematology & Oncology
DX: C18.2 Malignant neoplasm of ascending colon (principal); R91.1 Solitary pulmonary nodule
CPT/HCPCS: 82565; 84520; 71260; 74177; 36415; Q9967

== ENCOUNTER 2021-03-08 10:40 | Day surgery (SDC) | payer MEDICARE, BC ==
[2021-03-05 14:02] VITALS: BMI 29.7
[~2021-03-08 10:40] MED LIST changes: -ACETAMINOPHEN TAB 500 MG TAB PO PRN; -DEXAMETHASONE SOD PHOSPHATE 4 MG/ML 1 ML VIAL IV ONE; -HEPARIN SODIUM,PORCINE 5,000 UNIT/ML 1 ML VIAL SQ PRN; -HYDROmorphone 0.5 MG/0.5 ML SYRINGE IVP PRN; +LACTATED RINGERS 1,000 ML IV SCH; -LIDOCAINE 1% (10MG/ML) FOR IV START INTRADERMA PRN; -MIDAZOLAM 2 MG/2 ML VIAL IV PRN; -ONDANSETRON 4 MG/2 ML VIAL IVP ONE
[2021-03-08 11:13] VITALS: RESP 16; TEMP 98
[2021-03-08] MEDS ORDERED: PROPOFOL 10 MG/ML 20 ML VIAL IV ONE (12:43)
[2021-03-08] MEDS ORDERED: LIDOCAINE 1% INJ 10MG/ML (20 ML MDV) ONE (12:43)
--- NOTE | 2021-03-08 12:59 | P.PCN ---
Date of Procedure: 03/08/21 Procedure(s) Performed: BRIEF HISTORY: Patient is a 65-year-old pleasant male scheduled for an elective colonoscopy as a part of surveillance of prior history of colon cancer diagnosed in 2018 for which she underwent right hemicolectomy followed by chemotherapy. Her last surveillance colonoscopy was in December 2018 revealed small colon polyps. PROCEDURE PERFORMED: Colonoscopy. PREOPERATIVE DIAGNOSIS: History of colon cancer in 2018 status post right hemicolectomy. IV sedation per Anesthesia. PROCEDURE: After informed consent was obtained, the patient, was brought into the endoscopy unit. IV sedation was administered by Anesthesia under continuous monitoring. Digital rectal examination was normal. Initially the Olympus CF-160 flexible video colonoscope was then inserted in the rectum, gradually advanced into right colon with the anastomosis was visualized and appeared normal. Prep was excellent. Mucosa of the ascending colon, transverse colon, descending colon, sigmoid colon, and rectum appeared normal. Retroflexion was performed in the rectum and no lesions were seen. The patient tolerated the procedure well. IMPRESSION: Normal-appearing colon from rectum to right colon with normal- appearing ileal colic anastomosis RECOMMENDATIONS: Findings of this examination were discussed with the patient as well as a family. She was advised to have a repeat surveillance colonoscopy in 3 years from now..
[2021-03-08 13:19] VITALS: BP 134/88; PULSE 61
== END 2021-03-08 13:45 | disposition home or self-care (01) ==
LOC: ORWHC2ENDO 10:40
PROVIDERS: ATTEND Internal Medicine Gastroenterology
DX: Z12.11 Encounter for screening for malignant neoplasm of colon (principal); Z85.038 Personal history of other malignant neoplasm of large intestine; Z86.010 Personal history of colon polyps; I10 Essential (primary) hypertension; F32.A Depression, unspecified; K21.9 Gastro-esophageal reflux disease without esophagitis; Z98.890 Other specified postprocedural states; Z92.21 Personal history of antineoplastic chemotherapy; Z90.49 Acquired absence of other specified parts of digestive tract; Z90.710 Acquired absence of both cervix and uterus; Z85.3 Personal history of malignant neoplasm of breast; Z79.82 Long term (current) use of aspirin; Z79.899 Other long term (current) drug therapy
CPT/HCPCS: J2001; J2704; G0105; 45378

== ENCOUNTER → 2021-03-15 | Outpatient (CLI) | payer MEDICARE, BC ==
--- NOTE | 2021-03-15 12:56 | PE ---
EXAMINATION TYPE: PET CT fusion skull to thigh DATE OF EXAM: 03/15/2021 COMPARISON: Most recent whole body CT February 20, 2021 and older studies HISTORY: Colorectal cancer progress study. History of left-sided breast cancer. TECHNIQUE: Following the intravenous administration of 9.86 mCi of F-18 FDG, whole body images are p erformed from the skull base to the midthigh. Images are reviewed on the computer in the coronal, ax ial, and sagittal planes. Reconstructed rotating images are created on independent workstation and r eviewed on the computer. A localization and attenuation correction CT is performed in conjunction w ith the PET scan. Blood glucose level equals 90 SCAN: Subsequent Scan FINDINGS: SKULL BASE AND NECK: No new areas of abnormal hypermetabolic uptake. CHEST, MEDIASTINUM, AND HILAR REGION: Background Mild underlying emphysematous change in the upper natan ngs is redemonstrated. Stable 8 x 6 mm posterior right lower lobe nodule axial image 107 is ametaboli c. Stable 1.2 x 1.0 cm nodule in the anterior left lower lobe abutting the fissure axial image [address] also is noted ametabolic. No areas of abnormal hypermetabolic uptake. ABDOMEN AND PELVIS: Normal excretion. Postsurgical change to the right colon with sutures from partia l proximal colectomy and anastomosis redemonstrated. Mild nonspecific uptake in bowel loops in the pe lvis. No definitive new areas of abnormal hypermetabolic uptake. OSSEOUS STRUCTURES: No definitive new areas of abnormal hypermetabolic uptake. OTHER CT: Stable right subclavian Mediport catheter. Scar tissue medial aspect left breast axial imag e 94 is redemonstrated Cholecystectomy clips are redemonstrated. Scattered bilateral pelvic phleboliths. Uterus is surgicall y absent. IMPRESSION: No areas of abnormal hypermetabolic uptake to suggest active malignancy. Enlarging anteri or superior left lower lobe nodule is concerning, advise repeat contrast-enhanced chest CT in 3-6 mon ths time to reassess.
== END | disposition home or self-care (01) ==
LOC: RADPETMAIN 09:22
PROVIDERS: ATTEND Internal Medicine Hematology & Oncology
DX: C18.2 Malignant neoplasm of ascending colon (principal); R91.1 Solitary pulmonary nodule; Z85.3 Personal history of malignant neoplasm of breast
CPT/HCPCS: 78815; A9552

== ENCOUNTER → 2021-06-07 | Outpatient (CLI) | payer MEDICARE, BC ==
[2021-06-08 01:12] LABS: HCT 36.5 % (37.2-46.3); HGB 11.5 g/dL (12.0-15.0); MCHC 31.5 g/dL (32.0-37.0); MCV 104.6 fL (80.0-97.0); Mean Platelet Volume 11.2 fL (9.5-12.2); NRBC Per 100 WBC 0 /100 WBCS (0.0-0.0); Platelet Count 181 X 10*3/uL (140-440); RBC 3.49 X 10*6/uL (4.10-5.20); RDW 13.3 % (11.5-14.5); WBC 5.61 X 10*3/uL (4.50-10.00)
[2021-06-08 01:55] LABS: African American GFR (CKD) 74.9 (60.0-200.0); BUN/Creat Ratio 31.03 Ratio (12.00-20.00); Blood Urea Nitrogen 28.8 mg/dL (9.0-27.0); Carbon Dioxide 22.8 mmol/L (20.0-27.5); Non-African American GFR(CKD) 64.7 (60.0-200.0); Potassium 4.3 mmol/L (3.5-5.5)
== END | disposition home or self-care (01) ==
LOC: LABWHC1 10:45
DX: Z51.81 Encounter for therapeutic drug level monitoring (principal)
CPT/HCPCS: 36415; 80048; 84450; 84460; 85027

== ENCOUNTER → 2021-06-20 | Outpatient (CLI) | payer MEDICARE, BC ==
--- NOTE | 2021-06-20 14:48 | CT ---
EXAMINATION TYPE: CT ChestAbdPelvis w con DATE OF EXAM: 06/20/2021 COMPARISON: PET scan 03/07/2019, CT scan 02/20/2019 HISTORY: Colon cancer CT DLP: 1253.6 mGycm Automated exposure control for dose reduction was used. CONTRAST: CT scan of the chest, abdomen and pelvis is performed with Oral Contrast and with IV Contrast, patien t injected with 80 mL of Isovue 300. FINDINGS: LUNGS: Emphysematous changes are stable 8 mm nodular density in the subpleural location right lower l obe there is a stable nodule within the left lower lobe measuring 1.2 cm. Apical pleural thickening stable. No new pulmonary nodules. No pleural effusion or pneumothorax. No focal pneumonia. MEDIASTINUM: There are no greater than 1 cm hilar or mediastinal lymph nodes. No pericardial effusi on is seen. OTHER: Mediport catheter noted. Chronic deformity of the left breast. Similar to the recent PET scan . LIVER/GB: Cholecystectomy clips are in place. No space occupying hepatic lesion. Biliary tree is of n ormal caliber. PANCREAS: No significant abnormality is seen. SPLEEN: No significant abnormality is seen. ADRENALS: No significant abnormality is seen. KIDNEYS: Stable 8 mm nodule is medial margin the mid left kidney too small to accurately characterize but unchanged 2015 and Likely benign appearance. BOWEL: Bowel gas pattern is nonspecific with no obstruction. Mild diverticulosis. There is a questio n very mild wall thickening circumferentially in the distal sigmoid colon could be related to incompl ete distention. Correlate clinically. Suggestion of previous surgery involving the right colon. Small hiatal hernia LYMPH NODES: No greater than 1 cm abdominal or pelvic lymph nodes are appreciated. OSSEOUS STRUCTURES: Hypertrophic and degenerative changes spine. OTHER: Atherosclerotic change aorta. There is a subcutaneous soft tissue mass along the left upper gl uteal region measuring 2.3 cm in size from the exam of 2014. Therefore likely benign and possibly rel ated sebaceous cyst. Other etiologies aren't excluded. Numerous calcifications in pelvis are likely vascular. IMPRESSION: 1. Stable pulmonary nodules unchanged from prior exam. 2. COPD. 3. No pathologic adenopathy within the chest, abdomen or pelvis. No intrahepatic lesions. 4. There is mild wall thickening of the distal sigmoid colon. This could be transient. Recommend rex elation clinically and if necessary with colonoscopy to exclude mucosal lesion. 5. Chronic appearing changes involving the left breast unchanged from recent PET scan.
== END | disposition home or self-care (01) ==
LOC: RADPROMAIN 12:27
PROVIDERS: ATTEND Internal Medicine Hematology & Oncology
DX: C18.2 Malignant neoplasm of ascending colon (principal); J44.9 Chronic obstructive pulmonary disease, unspecified; R91.8 Other nonspecific abnormal finding of lung field
CPT/HCPCS: 82565; 84520; 71260; 74177; 36415; Q9967

== ENCOUNTER → 2021-07-08 | Outpatient (CLI) | payer MEDICARE, BC ==
--- NOTE | 2021-07-08 20:52 | CT ---
EXAMINATION TYPE: CT ChestAbdPelvis w con DATE OF EXAM: 07/08/2021 COMPARISON: CT dated 06/20/2021 HISTORY: Colon ca, breast ca CT DLP: 1392.2 mGycm Automated exposure control for dose reduction was used. CONTRAST: CT scan of the chest, abdomen and pelvis is performed with Oral Contrast and with IV Contrast, patien t injected with 80 mL of Isovue 300. FINDINGS: LUNGS: Slightly larger irregular lesion at the anterior aspect of the left lower lobe measuring 17 mm compared to 13 mm previously. Grossly stable remainder of the previously seen smaller pulmonary nodu les measuring up to 9 mm at the posterior aspect of the right lower lobe. Centrilobular emphysematous changes involving the upper lobes. Patent trachea and main bronchi. No pleural effusion. MEDIASTINUM: No gross cardiomegaly. Patent major mediastinal vessels. Arterial atherosclerotic calcif ications. No pericardial effusion. Thin myocardium at the cardiac apex, underlying chronic infarct at that location cannot be excluded, please correlate with echocardiographic results. No pathologically enlarged lymph nodes in the chest. OTHER: Tiny right breast calcifications. Grossly stable chronic changes in the left breast. No aggre ssive bone lesion. LIVER/GB: No definite hepatic focal lesion. Previous cholecystectomy. PANCREAS: No significant abnormality is seen. SPLEEN: No significant abnormality is seen. ADRENALS: No significant abnormality is seen. KIDNEYS: Left renal cyst without suspicious feature, otherwise unremarkable kidneys. BOWEL: Unremarkable stomach and duodenum. Ileocolic anastomosis is seen in the right side of the abd omen, grossly unremarkable. Scattered segments of nonspecific mild colonic wall thickening. Recommend correlation with colonoscopy results. Colonic diverticulosis most evident involving the sigmoid colo n. Unremarkable remainder of the small bowel with no evidence of bowel obstruction. REPRODUCTIVE ORGANS: Previous hysterectomy. No gross adnexal mass. LYMPH NODES: No greater than 1 cm abdominal or pelvic lymph nodes are appreciated. OSSEOUS STRUCTURES: No aggressive bone lesion. OTHER: Arterial atherosclerotic calcifications. No sizable ascites. IMPRESSION: Slightly larger irregular lesion at the anterior aspect of the left lower lung lobe, possibly represe nting progressive metastatic lesion. Further PET scan assessment can be considered. Grossly stable re mainder of the lung nodules. No evidence of metastatic disease seen in the chest, abdomen or the pelvis otherwise. Other interval changes and incidental findings as detailed above.
== END | disposition home or self-care (01) ==
LOC: RADCTMAIN 17:19
PROVIDERS: ATTEND Internal Medicine Hematology & Oncology
DX: C18.9 Malignant neoplasm of colon, unspecified (principal); C50.919 Malignant neoplasm of unspecified site of unspecified female breast; R91.8 Other nonspecific abnormal finding of lung field
CPT/HCPCS: 82565; 84520; 71260; 74177; 36415; Q9967

== ENCOUNTER 2021-08-16 13:04 | Emergency (ER) | payer MEDICARE, BC ==
[2021-08-16 14:17] VITALS: BP 157/85; PULSE 81; RESP 18; TEMP 98.2
--- NOTE | 2021-08-16 18:36 | US ---
EXAMINATION TYPE: US venous doppler duplex LE RT DATE OF EXAM: 08/16/2021 6:04 PM COMPARISON: NONE CLINICAL HISTORY: pain swelling elevated ddimer. Elevated d dimer. SIDE PERFORMED: Right TECHNIQUE: The lower extremity deep venous system is examined utilizing real time linear array sonog mariam with graded compression, doppler sonography and color-flow sonography. VESSELS IMAGED: Common Femoral Vein Deep Femoral Vein Greater Saphenous Vein * Femoral Vein Popliteal Vein Small Saphenous Vein * Proximal Calf Veins (* superficial vessels) Right Leg: Negative for DVT IMPRESSION: No evidence of deep vein thrombosis of the right lower extremity.
--- NOTE | 2021-08-16 18:39 | ED ---
General Adult HPI - General Chief complaint: Recheck/Abnormal Lab/Rx Stated complaint: poss blood clot rt leg Time Seen by Provider: 08/16/21 17:53 Source: patient, RN notes reviewed Mode of arrival: ambulatory Limitations: no limitations - History of Present Illness Initial comments: Patient is a pleasant 66-year-old female presenting to the emergency Department with right lower leg swelling. Onset of symptoms was the past day or 2. Patient states there is some discomfort associated with that. No history of similar symptoms previously. No chest pain or dyspnea. Patient did have elevated outpatient d-dimer and was advised to come for ultrasound. Patient does have history of cancer however no known active disease. patient recently finished medicine - Related Data Home Medications Medication Instructions Recorded Confirmed Multivitamins, Thera [Multivitamin 1 tab PO DAILY 07/10/17 03/05/21 (formulary)] Tamoxifen Citrate 20 mg PO DAILY 12/16/17 03/08/21 Calcium And Magnesium Oral Tab 1 tab PO DAILY 01/20/20 03/05/21 (Unknown Strength) Escitalopram Oxalate [Lexapro] 10 mg PO DAILY 01/20/20 03/08/21 Cholecalciferol [Vitamin D3 (25 50 mcg PO DAILY 05/02/20 03/05/21 Mcg = 1000 Iu)] Cyanocobalamin [Vitamin B-12] 500 mcg PO DAILY 05/02/20 03/05/21 Vitamin B Complex 1 cap PO DAILY 05/02/20 03/05/21 Aspirin [Adult Low Dose Aspirin EC] 81 mg PO DAILY 03/05/21 03/05/21 Celecoxib [CeleBREX] 200 mg PO DAILY 03/05/21 03/08/21 Ferrous Sulfate [Feosol] 325 mg PO DAILY 03/05/21 03/05/21 [place]-3 Fatty Acids/Fish Oil [Fish 1 each PO BID 03/05/21 03/05/21 Oil 1,000 mg Softgel] amLODIPine [Norvasc] 5 mg PO HS 03/05/21 03/08/21 rOPINIRole HCL [Requip] 0.25 mg PO HS 03/05/21 03/05/21 Previous Rx's Medication Instructions Recorded Valsartan [Diovan] 160 mg PO DAILY #30 tablet 05/08/20 Allergies Allergy/AdvReac Type Severity Reaction Status Date / Time No Known Allergies Allergy Verified 08/16/21 14:17 Review of Systems ROS Statement: Those systems with pertinent positive or pertinent negative responses have been documented in the HPI. ROS Other: All systems not noted in ROS Statement are negative. Constitutional: Denies: fever Eyes: Denies: eye pain ENT: Denies: ear pain Respiratory: Denies: cough, dyspnea Cardiovascular: Denies: chest pain Endocrine: Denies: fatigue Gastrointestinal: Denies: abdominal pain Genitourinary: Denies: dysuria Musculoskeletal: Denies: back pain Skin: Denies: rash Neurological: Denies: weakness Past Medical History Past Medical History: Cancer, GERD/Reflux, Hypertension Additional Past Medical History / Comment(s): LT BREAST CANCER, colon cancer stage II-METS TO OVARIES-with chemo. last chemo june 2020, has port and continues to receive zirabev every 3 weeks. History of Any Multi-Drug Resistant Organisms: None Reported Past Surgical History: Bowel Resection, Breast Surgery, Cholecystectomy, Hysterectomy Additional Past Surgical History / Comment(s): LT BREAST LUMPECTOMY-RADIATION, COLONOSCOPY, HAS PORT A CATH Past Anesthesia/Blood Transfusion Reactions: No Reported Reaction Past Psychological History: No Psychological Hx Reported Smoking Status: Former smoker - Past Family History Mother Family Medical History: COPD, Dementia Father Family Medical History: AFIB, Cancer Additional Family Medical History / Comment(s): Lung cancer. Sister(s) Family Medical History: Cancer Additional Family Medical History / Comment(s): VOCAL CORD CANCER General Exam Limitations: no limitations General appearance: alert, in no apparent distress Head exam: Present: normocephalic Eye exam: Present: normal appearance Neck exam: Present: normal inspection Respiratory exam: Present: normal lung sounds bilaterally Cardiovascular Exam: Present: regular rate, normal rhythm Expanded Peripheral pulses: 2+: Posterior Tibialis (R), Posterior Tibialis (L) GI/Abdominal exam: Present: soft, normal bowel sounds. Absent: distended, tenderness, guarding, rebound, rigid, pulsatile mass Extremities exam: Present: normal inspection, other (Mild swelling and tenderne ss right calf) Neurological exam: Present: alert Psychiatric exam: Present: normal affect, normal mood Skin exam: Present: normal color Course Vital Signs 08/16/21 14:14 Temperature 98.2 F Pulse Rate 81 Respiratory 18 Rate Blood Pressure 157/85 O2 Sat by Pulse 97 Oximetry Medical Decision Making - Medical Decision Making Patient reevaluated and updated - Radiology Data Radiology results: report reviewed (Ultrasound negative for DVT) Disposition Clinical Impression: Leg edema Disposition: HOME SELF-CARE Condition: Stable Instructions (If sedation given, give patient instructions): Leg Edema (ED) Additional Instructions: Please follow-up with primary care physician in the next day or 2 for recheck. 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 Return for increased pain, swelling, chest pain or difficulty breathing, worsening symptoms or other concerns. Is patient prescribed a controlled substance at d/c from ED?: No Referrals: Josefa Asif MD [Primary Care Provider] - 1-2 days Time of Disposition: 19:07
== END 2021-08-16 19:29 | disposition home or self-care (01) ==
LOC: EC 13:04
DX: R60.0 Localized edema (principal); Z87.891 Personal history of nicotine dependence
CPT/HCPCS: 99283

== ENCOUNTER → 2021-10-25 | Outpatient (CLI) | payer MEDICARE, BC ==
--- NOTE | 2021-10-25 11:29 | MM ---
Reason for Exam: Follow-up at short interval from prior study. Last screening mammogram was performed 12 month(s) ago. Patient History: Menarche at age 15. First Full-Term at age 24. Left ovary removed at age 64. Right ovary removed at age 64. Hysterectomy at age 64. Postmenopausal. Breast cancer, age 62. Colorectal cancer, age 62. Ovarian cancer, age 64. Patient used Hormonal Contraceptives for 1 year. 08/12/2017, Lumpectomy on the Left side. 08/12/2017, Malignant Core Biopsy on the left side. 07/16/2017, High risk Core Biopsy on the right side. 07/16/2017, High risk Core Biopsy on the left side. 2018, Radiation Therapy on the left side. Paternal grandmother had breast cancer, age 50. Paternal aunt had breast cancer, age 50. Tissue Density: The breast tissue is heterogeneously dense. This may lower the sensitivity of mammography. Findings: Analyzed By CAD. Postoperative distortion left breast is stable. Benign calcifications bilaterally. No new masses or areas of skin thickening. Overall Assessment: Benign, BI-RAD 2 Management: Diagnostic Mammogram of both breasts in 1 year. A clinical breast exam by your physician is recommended on an annual basis and results should be correlated with mammographic findings. This exam should not preclude additional follow-up of suspicious palpable abnormalities. Results were given to the patient verbally at the time of exam. Electronically signed and approved by: Onur Bowling M.D. Radiologis
== END | disposition home or self-care (01) ==
LOC: RADMAMWWP 10:52
PROVIDERS: ATTEND Internal Medicine
DX: D05.12 Intraductal carcinoma in situ of left breast (principal); Z78.0 Asymptomatic menopausal state; Z80.3 Family history of malignant neoplasm of breast; Z98.890 Other specified postprocedural states; Z85.3 Personal history of malignant neoplasm of breast
CPT/HCPCS: 77066; G0279; 77062

== ENCOUNTER → 2021-10-28 | Outpatient (CLI) | payer MEDICARE, BC ==
--- NOTE | 2021-10-30 12:30 | CT ---
EXAMINATION TYPE: CT ChestAbdPelvis w con CT DLP: 1508 mGycm, Automated exposure control for dose reduction was used. DATE OF EXAM: 10/28/2021 9:20 AM COMPARISON: CT 07/08/2021. 03/15/2021 PET CLINICAL INDICATION:Female, 66 years old with history of Z03.89 Obsv for suspected Mets; Technique: Multiple axial images of the chest, abdomen, and pelvis were obtained. Two-dimensional cor onal and sagittal reconstructions were obtained. Contrast used: 100 cc of Isovue 370 Oral contrast used: Yes Findings: CHEST: LUNGS/ PLEURA: The anterior left lower lobe demonstrates increasing size of pulmonary nodule with mor e solid appearance on today's exam measuring up to 17 mm., Larger compared to 03/15/2021 where it ofelia ured approximately 12 mm Similar 9 mm right lower lobe pulmonary nodule. There is mild centrilobular emphysema changes throughout the lungs. AIRWAY: Patent and unremarkable. HEART: The heart is mildly enlarged for size. MEDIASTINUM: No gross evidence of adenopathy. VASCULATURE: No aortic aneurysm. Right chest wall [id number]-s-[id number] with distal tip terminating in the s uperior vena cava. MUSCULOSKELETAL: No acute osseous abnormalities. SOFT TISSUES/LYMPH NODES: Similar left breast medial suspected fat necrosis. LOWER NECK: No significant findings. ABDOMEN: ABDOMEN LIVER: Diffusely hypoattenuating parenchyma. GALLBLADDER AND BILE DUCTS: The gallbladder is surgically absent. PANCREAS: Unremarkable. SPLEEN: Unremarkable. ADRENAL GLANDS: Unremarkable. KIDNEYS AND URETERS: No evidence of hydronephrosis or renal calculus. The ureters are unremarkable. PELVIS BLADDER: Unremarkable REPRODUCTIVE: Unremarkable. ABDOMEN & PELVIS STOMACH AND BOWEL: No evidence of bowel obstruction. PERITONEUM: No evidence of pneumoperitoneum or free fluid. VASCULATURE: Mild atherosclerotic calcifications are present throughout the abdominal aorta and its b ranches. MUSCULOSKELETAL: No acute osseous abnormalities LYMPH NODES: No gross evidence for lymphadenopathy. SOFT TISSUE/ABDOMINAL WALL: Stable left posterior buttock subcutaneous nodule now measuring 25 mm pre viously 12 mm. A more superior left subcutaneous lesion with surrounding fat stranding changes on ser ies 3 image 50 is present measuring up to 2.5 cm with skin thickening. IMPRESSION: 1. Mild increase in size of left lower lobe superior segment pulmonary nodule measuring up to 17 mm. There was mild FDG activity in this lesion and is concerning for malignancy. 2. Right lower lobe pulmonary nodule measuring 9 mm. Stable. 3. Enlarging left posterior subcutaneous soft tissue lesions along with a more inferior stable ovoid opacity which is not FDG avid on prior PET. Correlate with dermatologic examination for sebaceous cys t. 4. Hepatic steatosis.
== END | disposition home or self-care (01) ==
LOC: RADCTMAIN 06:57
PROVIDERS: ATTEND Internal Medicine Hematology & Oncology
DX: C18.2 Malignant neoplasm of ascending colon (principal); R91.8 Other nonspecific abnormal finding of lung field; K76.0 Fatty (change of) liver, not elsewhere classified
CPT/HCPCS: 82565; 84520; 71260; 74177; Q9967

== ENCOUNTER → 2021-11-16 | Outpatient (CLI) | payer MEDICARE, BC ==
--- NOTE | 2021-11-17 08:33 | PE ---
EXAMINATION TYPE: PET CT fusion skull to thigh DATE OF EXAM: 11/16/2021 CLINICAL INDICATION:Female, 66 years old with history of C18.2 Colon CA; TECHNIQUE: Following the intravenous administration of 11.9 mCi of F-18 FDG, whole body images are performed from the skull base to the midthigh. Images are reviewed on the computer in the coronal, a xial, and sagittal planes. Reconstructed rotating images are created on independent workstation and reviewed on the computer. A non-contrast CT is performed in conjunction with the PET scan. Glucose level 104 mg/dL COMPARISON: CT 10/28/2021, PET/CT 03/15/2021, FINDINGS: Mediastinal SUV mean is 1.4. Hepatic parenchyma SUV mean is 2.4. SKULL BASE AND NECK: No suspicious FDG activity. Suspected physiologic uptake within the adenoids an d palatine tonsils. New from prior with max SUV 9.8 at the adenoids. CHEST, MEDIASTINUM, AND HILAR REGION: * Right lower lobe pulmonary nodule Max SUV 1.0 measuring 8 mm. * Left lower lobe nodule changes along the fissure max SUV 2.3, previously 1.0 measuring up to 1.6 c m. ABDOMEN AND PELVIS: No suspicious FDG activity. OSSEOUS STRUCTURES: No suspicious FDG activity. OTHER CT: Right chest wall [id number] with distal tip at the superior cavoatrial junction. Mild co ronary artery atherosclerosis. The bladder surgically absent. Colonic diverticulosis. IMPRESSION: 1. Mild FDG activity within the left lower lobe consolidative change is not significantly above back ground levels. This area did increase in consolidation morphology compared to 07/08/2021 CT examinatio n. Consider continued surveillance with CT chest in 3-6 months and/or tissue sampling. 2. No suspicious FDG activity within the chest abdomen or pelvis.
== END | disposition home or self-care (01) ==
LOC: RADPETMAIN 08:53
PROVIDERS: ATTEND Internal Medicine Hematology & Oncology
DX: C18.2 Malignant neoplasm of ascending colon (principal)
CPT/HCPCS: 78815; A9552

== ENCOUNTER → 2022-02-12 | Outpatient (CLI) | payer MEDICARE, BC ==
[2022-02-12 11:20] LABS: African American GFR (CKD) >90 (>60 ml/min/1.73 sqM); Blood Urea Nitrogen 26 mg/dL (7-17); Non-African American GFR(CKD) 80 (>60 ml/min/1.73 sqM)
--- NOTE | 2022-02-12 14:10 | CT ---
EXAMINATION TYPE: CT ChestAbdPelvis w con DATE OF EXAM: 02/12/2022 INDICATION: h/o breast and colon CA, f/u COMPARISON: 11/16/2021 PET/CT, chest abdomen and pelvis CT 10/28/2021 CT DLP: 1568.5 mGycm CONTRAST: Performed with Oral Contrast and with IV Contrast, patient injected with 80 mL of Isovue 300. TECHNIQUE: Axial images at 5 mm thick sections. Reconstructed images in the coronal plane. Delayed images through the kidneys. FINDINGS: CT CHEST: Portion of the thyroid visualized is normal. There is a 1.0 cm nodule in the posterior right lung. Series 5 image 37. There is a nodule within the left lung base measuring 1.8 cm. Series 5 image 36 Mild emphysematous changes present. No enlarged mediastinal or hilar adenopathy is evident. The ascending aorta diameter at the level of the main pulmonary artery is 3.0 cm. The main pulmonary artery diameter at the bifurcation is 2.[address] ABDOMEN: Liver: Normal Spleen: Normal Pancreas: Normal Adrenal glands: The adrenal glands are normal. Gallbladder: Surgically absent Kidneys: No masses are evident. No hydronephrosis is present. No cysts are present. Delayed images were obtained through the kidneys, small cortical renal cyst on the mid left kidney. Aorta: Vascular calcification is within the aorta. Inferior vena cava: Normal. CT PELVIS: Scattered diverticuli are present. No acute diverticulitis is evident. Small bowel loops distended wi th oral contrast are normal. Oral contrast extends to the distal small bowel loops There are loops of bowel which are incompletely distended or lack oral contrast limiting their evaluation. Appendix: Not visualized Urinary bladder: Normal. Genitourinary structures: Uterus and ovaries are not identified. Osseous structures: No suspicious lytic or sclerotic lesions. IMPRESSIONS: 1. Small bilateral nodules as described above. This appears developmentally normal prominent from the CT of 10/28/2021 although not hypermetabolic on the PET/CT of 11/16/2021. 2. Diverticulosis without acute diverticulitis.
== END | disposition home or self-care (01) ==
LOC: RADCTMAIN 10:26
PROVIDERS: ATTEND Internal Medicine Hematology & Oncology
DX: C18.2 Malignant neoplasm of ascending colon (principal); D05.12 Intraductal carcinoma in situ of left breast; D47.2 Monoclonal gammopathy; R91.8 Other nonspecific abnormal finding of lung field; K57.30 Diverticulosis of large intestine without perforation or abscess without bleeding
CPT/HCPCS: 82565; 84520; 71260; 74177; 36415; Q9967

== ENCOUNTER → 2022-02-25 | Outpatient (CLI) | payer MEDICARE, BC ==
--- NOTE | 2022-02-25 09:20 | USB ---
Reason for Exam: Clinical finding. Patient History: Menarche at age 15. First Full-Term at age 24. Left ovary removed at age 64. Right ovary removed at age 64. Hysterectomy at age 64. Postmenopausal. Breast cancer, left, age 62. Colorectal cancer, age 62. Ovarian cancer, age 64. Patient used Hormonal Contraceptives for 1 year. 08/12/2017, Lumpectomy on the Left side. 08/12/2017, Malignant Core Biopsy on the left side. 07/16/2017, High risk Core Biopsy on the right side. 07/16/2017, High risk Core Biopsy on the left side. 2018, Radiation Therapy on the left side. Paternal grandmother had breast cancer, age 50. Paternal aunt had breast cancer, age 50. Technique: Method: Whole Breast Handheld. Prior Study Comparison: 09/20/2019 Bilateral Diagnostic Mammogram, [facility]. 10/24/2020 Bilateral Diagnostic Mammogram, [facility]. 10/25/2021 Bilateral MG 3D diag mammo w/cad JERAMIE, [facility]. Findings: The whole breast of the right breast, the area of palpable concern of the right breast, the axilla of the right breast and the retroareolar of the right breast were scanned. A complete US of all four quadrants of the breast , axilla, and retro-areolar region were reviewed. No solid or cystic masses are identified. Particular attention to the palpable region 10-11 o'clock. No solid or cystic lesion. No axillary lymphadenopathy. As a precautionary measure, given the patient's personal history of breast cancer and other cancers, 6 month follow-up right breast mammogram is recommended. Overall Assessment: Probably benign, BI-RAD 3 Management: Diagnostic Mammogram of the right breast in 6 months. 1. Patient should continue monthly self breast exams. 2. A clinical breast exam by your physician is recommended on an annual basis. 3. These results should not preclude additional follow-up of suspicious palpable abnormalities. Results were given to the patient verbally at the time of exam. Electronically signed and approved by: Mora Yoder M.D. Radiologist
[2022-02-25 14:14] LABS: Basophils # (A) 0.05 X 10*3/uL (0.00-0.10); Eosinophils # (A) 0.19 X 10*3/uL (0.04-0.35); Eosinophils % (A) 3.7 %; HCT 37.8 % (37.2-46.3); HGB 11.7 g/dL (12.0-15.0); Immature Grans, Automated 0.2 %; Lymphocytes # (A) 1.78 X 10*3/uL (0.90-5.00); Lymphocytes % (A) 34.6 %; MCH 31.3 pg (27.0-32.0); MCV 101.1 fL (80.0-97.0); Mean Platelet Volume 9.8 fL (9.5-12.2); Monocytes # (A) 0.39 X 10*3/uL (0.20-1.00); Monocytes % (A) 7.6 %; NRBC Per 100 WBC 0 /100 WBCS (0.0-0.0); Neutrophils # (A) 2.73 X 10*3/uL (1.80-7.70); Neutrophils % (A) 52.9 %; Platelet Count 197 X 10*3/uL (140-440); RBC 3.74 X 10*6/uL (4.10-5.20); RDW 13.6 % (11.5-14.5); WBC 5.15 X 10*3/uL (4.50-10.00)
[2022-02-25 15:05] LABS: ALT 23 U/L (8-44); AST 24 U/L (13-35); Albumin 4.1 g/dL (3.8-4.9); Albumin/Globulin Ratio 1.58 (1.60-3.17); Alkaline Phosphatase 102 U/L (41-126); Blood Urea Nitrogen 32.9 mg/dL (9.0-27.0); Calcium 9.5 mg/dL (8.7-10.3); Carbon Dioxide 25.1 mmol/L (20.0-27.5); Chloride 107 mmol/L (96-109); Chol/HDL Ratio 2.11 Ratio; Globulin 2.6 g/dL (1.6-3.3); Glucose 113 mg/dL (70-110); LDL Cholesterol,Calculated 78.6 mg/dL (0.0-131.0); Non-African American GFR(CKD) 58.7 (60.0-200.0); Potassium 4.8 mmol/L (3.5-5.5); Sodium 140 mmol/L (135-145); Total Protein 6.7 g/dL (6.2-8.2)
--- NOTE | 2022-03-04 13:37 | MM ---
Reason for Exam: Clinical finding. Last screening mammogram was performed 4 month(s) ago. Indicated Problems: Lump or thickening of the right side for 1 Month(s). Patient History: Menarche at age 15. First Full-Term at age 24. Left ovary removed at age 64. Right ovary removed at age 64. Hysterectomy at age 64. Postmenopausal. Breast cancer, left, age 62. Colorectal cancer, age 62. Ovarian cancer, age 64. Patient used Hormonal Contraceptives for 1 year. 08/12/2017, Lumpectomy on the Left side. 08/12/2017, Malignant Core Biopsy on the left side. 07/16/2017, High risk Core Biopsy on the right side. 07/16/2017, High risk Core Biopsy on the left side. 2017, Radiation Therapy on the left side. Paternal grandmother had breast cancer, age 50. Paternal aunt had breast cancer, age 50. Prior Study Comparison: 06/23/2017 Bilateral Screening Mammogram, [facility]. 06/26/2017 Bilateral Diagnostic Mammogram, [facility]. 03/08/2018 Bilateral Diagnostic Mammogram, [facility]. 09/16/2018 Bilateral Diagnostic Mammogram, [facility]. 09/20/2019 Bilateral Diagnostic Mammogram, [facility]. 10/24/2020 Bilateral Diagnostic Mammogram, [facility]. 10/25/2021 Bilateral MG 3D diag mammo w/cad JERAMIE, [facility]. Tissue Density: Right: The breast tissue is heterogeneously dense. This may lower the sensitivity of mammography. Findings: Analyzed By CAD. Palpable marker along the upper outer quadrant at the physician palpated side. Microclip at the previous 12-1 o'clock biopsy site with regional calcifications here. No significant change from prior exams. Overall Assessment: Incomplete: need additional imaging evaluation, BI-RAD 0 Management: Diagnostic Breast Ultrasound of the right breast. Attention to the patient's palpable site. Electronically signed and approved by: Mora Yoder M.D. Radiologist
== END | disposition home or self-care (01) ==
LOC: RADMAMWWP 08:07
PROVIDERS: ATTEND Family Medicine
DX: Z01.411 Encounter for gynecological examination (general) (routine) with abnormal findings (principal); N63.0 Unspecified lump in unspecified breast; C79.9 Secondary malignant neoplasm of unspecified site; R73.9 Hyperglycemia, unspecified; E78.2 Mixed hyperlipidemia; E53.8 Deficiency of other specified B group vitamins; E55.9 Vitamin D deficiency, unspecified
CPT/HCPCS: 80061; 80053; 82607; 84443; 85025; 82306; 83036; 77065; 76641; G0279; 77061

== ENCOUNTER → 2022-03-05 | Outpatient (CLI) | payer MEDICARE, BC ==
--- NOTE | 2022-03-05 12:22 | BD ---
EXAMINATION TYPE: Axial Bone Density DATE OF EXAM: 03/05/2022 COMPARISON: NONE CLINICAL HISTORY: 66 years year old Female. ICD-10 CODE: N95.1 M89.9 Height: 5 FT 7 1/2 IN Weight: 204 FRAX RISK QUESTIONS: Alcohol (3 or more units per day): NO Family History (Parent hip fracture): YES Glucocorticoids (More than 3mos): NO (Ex: prednisone, prednisolone, methylprednisolone, dexamethasone, and hydrocortisone). History of Fracture in Adulthood: NO Secondary Osteoporosis: 1. Type 1 Diabetes: NO 2. Hyperthyroidism: NO 3. Menopause before 45: NO 4. Malnutrition: NO 5. Chronic liver disease: NO Rheumatoid Arthritis: NO Current Tobacco Use: FORMER RISK FACTORS HISTORY OF: Surgery to Spine/Hip(right/left)/Wrist (right/left): NO Family History of Osteoporosis: NO Active: YES Diet low in dairy products/other sources of calcium: NO Postmenopausal woman: YES Take estrogen and/or progesterone medications: NO Lost more than 2 inches in height since high school: NO Frequent falls: NO Poor Health: GOOD Hyperparathyroidism: NO Adrenal Insufficiency: NO MEDICATIONS: Additional Medications: TAMOXIFEN, VALSARTAN, NAPROXEN,CYMBALTA, Additional History: BREAST CANCER /COLON CANCER/OVARIAN/ CHEMO,RADIATION EXAM MEASUREMENTS: Bone mineral densitometry was performed using the [employer]. Bone mineral density as measured about the Lumbar spine is: ----- L1-L4(G/cm2): 1.322 T Score Values are as follows: ----- L1: 1.7 ----- L2: 1.4 ----- L3: 1.7 ----- L4: 1.5 ----- L1-L4: 1.2 Bone mineral density has: INCREASED 1.4 % since study of: 2018 Bone mineral density about the R hip (g/cm2): 1.066 Bone mineral density about the L hip (g/cm2): 1.124 T Score values are as follows: -----R Neck: 0.2 -----L Neck: 0.6 -----R Total: 0.3 -----L Total: 0.8 Bone mineral density has: DECREASED -3.5 % since study of: 2018 FRAX%s: The graph provided illustrates a 6.3 % chance for a major osteoporotic fx and a 0.2 % chance for the hips probability for fx in 10 years time. IMPRESSION: Normal (Values between +1 and -1 indicate normal bone mass). Consider repeating this study in 5 year s or sooner if there is some new clinical indication. NOTE: T-SCORE=SD OF THE YOUNG ADULT MEAN.
== END | disposition home or self-care (01) ==
LOC: RADBDWWP 10:00
PROVIDERS: ATTEND Family Medicine
DX: Z78.0 Asymptomatic menopausal state (principal)
CPT/HCPCS: 77080

== ENCOUNTER → 2022-05-21 | Outpatient (CLI) | payer MEDICARE, BC ==
--- NOTE | 2022-05-21 14:31 | CT ---
EXAMINATION TYPE: CT ChestAbdPelvis w con DATE OF EXAM: 05/21/2022 INDICATION: Colon cancer COMPARISON: 02/04/2022 CT DLP: 1466.1 mGycm CONTRAST: Performed with Oral Contrast and with IV Contrast, patient injected with 80 mL of Isovue 300. TECHNIQUE: Axial images at 5 mm thick sections. Reconstructed images in the coronal plane. Delayed images through the kidneys. FINDINGS: CT CHEST: Portion of the thyroid visualized is normal. There is a 1.8 x 2.2 cm mass in the left lung base. This has enlarged slightly over the interval. No enlarged mediastinal or hilar adenopathy is evident. The ascending aorta diameter at the level of the main pulmonary artery is 3.1 cm. The main pulmonary artery diameter at the bifurcation is 2.[address] ABDOMEN: There is mild increase density within the mid mesentery near the transverse colon. Liver: Normal Spleen: Normal Pancreas: Normal Adrenal glands: The adrenal glands are normal. Gallbladder: Normal Kidneys: No masses are evident. No hydronephrosis is present. There is prominence of the left ureter. No obstructing ureteral stone is evident. There is asymmetric excretion of contrast with delayed exc retion on the left compared to the right. Mild hydronephrosis and hydroureters present. Is a 1.0 cm left renal cyst midpole left kidney. Aorta: Vascular calcification is within the aorta. Inferior vena cava: Normal. CT PELVIS: Loops of bowel within the abdomen and pelvis are normal. There are loops of bowel which are incom pletely distended or lack oral contrast limiting their evaluation. Appendix: Normal as visualized. Urinary bladder: Normal. Genitourinary structures: Uterus may be small. Adnexa are unremarkable Osseous structures: No suspicious lytic or sclerotic lesions. IMPRESSIONS: 1. Enlarging left lower lobe lung mass. 2. Delayed excretion on the left compared to the right kidney. There is mild left hydronephrosis and hydroureter. No obstructing etiology is identified.
== END | disposition home or self-care (01) ==
LOC: RADCTMAIN 07:40
PROVIDERS: ATTEND Internal Medicine Hematology & Oncology
DX: C18.2 Malignant neoplasm of ascending colon (principal); N13.30 Unspecified hydronephrosis; N13.4 Hydroureter; R91.8 Other nonspecific abnormal finding of lung field
CPT/HCPCS: 82565; 84520; 71260; 74177; 36415; Q9967

== ENCOUNTER → 2022-06-13 | Outpatient (CLI) | payer MEDICARE, BC ==
--- NOTE | 2022-06-15 09:23 | PE ---
EXAMINATION TYPE: PET CT fusion skull to thigh DATE OF EXAM: 06/13/2022 CLINICAL INDICATION:Female, 66 years old with history of C18.2; TECHNIQUE: Following the intravenous administration of 11 mCi of F-18 FDG, whole body images are pe rformed from the skull base to the midthigh. Images are reviewed on the computer in the coronal, axi al, and sagittal planes. Reconstructed rotating images are created on independent workstation and re viewed on the computer. A non-contrast CT is performed in conjunction with the PET scan. Glucose le obdulio 89 mg/dL COMPARISON: CT 05/21/2022, 02/04/2022, PET/CT 11/16/2021 FINDINGS: Mediastinal SUV mean is 1.95. Hepatic parenchyma SUV mean is 2.9. SKULL BASE AND NECK: No suspicious FDG activity. Resolution of tonsillar uptake. CHEST, MEDIASTINUM, AND HILAR REGION: * Right lower lobe pulmonary nodule Max SUV 1.85, previously 1.0 measuring 10 mm, previously 8 mm. S eries 3 image 23 * Right lower lobe nodule measuring 1.0 x 0.9, previously 1.0 x 0.7 and 0.8 x 0.5 Max SUV 2.2 previo usly below background levels. 0.9. * Left lower lobe nodule changes along the fissure max SUV 7.0, previously 2.3, 1.0 measuring up to 2.5 x 1.7 cm previously 2.3 x 1.4 on 05/21/2022 and before that 1.6 x 1.0 cm. * ABDOMEN AND PELVIS: No suspicious FDG activity. OSSEOUS STRUCTURES: No suspicious FDG activity. OTHER CT: Right chest wall [id number] with distal tip at the superior cavoatrial junction. Mild co ronary artery atherosclerosis. The gallbladder is surgically absent. Colonic diverticulosis. IMPRESSION: Progression of disease with interval increase in FDG activity and size of pulmonary nodules dating ba ck to prior PET 11/16/[address] on 05/21/2022.
== END | disposition home or self-care (01) ==
LOC: RADPETMAIN 16:24
PROVIDERS: ATTEND Internal Medicine Hematology & Oncology
DX: C18.2 Malignant neoplasm of ascending colon (principal); R91.8 Other nonspecific abnormal finding of lung field
CPT/HCPCS: 78815; A9552

== ENCOUNTER 2022-07-03 10:36 | Day surgery (SDC) | payer MEDICARE, BC ==
[2022-07-02 09:42] VITALS: BMI 30.5
--- NOTE | 2022-07-03 11:34 | CT ---
EXAMINATION TYPE: CT chest wo con DATE OF EXAM: 07/03/2022 COMPARISON: 05/21/2022 HISTORY: CT for navigation. CT DLP: 393.60 mGycm, Automated exposure control for dose reduction was used. CONTRAST: Performed injected with 0 mL of Isovue 300. TECHNIQUE: Axial images were obtained at 5 mm thick sections. Reconstructed images are reviewed on [employer] computer in the coronal plane. FINDINGS: Portion of the thyroid visualized is normal. There is some mild infiltrate along the anterior lateral left upper lung field. Series 4 image 91. There is a nodular density in the posterior right lung base measuring 1.2 x 1.0 cm. There is a 1.2 cm density at the right lung base. Series 3 image 205. There is a mass within the right lower lobe near the lung base measuring 1.9 x 3.2 cm. Series 3 image 178. No enlarged mediastinal or hilar adenopathy is evident. The ascending aorta diameter at the level o f the main pulmonary artery is 3.3 cm. The main pulmonary artery diameter at the bifurcation is 2.2 cm. Coronary artery calcification is present. Limited CT sections are obtained through the upper abdomen. Some mild left hydronephrosis of uncertai n etiology may be present. IMPRESSIONS: 1. CT for bronchoscopy navigation. 2. Bibasilar nodular densities, larger on the left. 3. Left hydronephrosis.
[2022-07-03] MEDS ORDERED: ONDANSETRON 4 MG/2 ML VIAL ONE (11:43)
[2022-07-03] MEDS ORDERED: ONDANSETRON 4 MG/2 ML VIAL IVP ONE (11:46)
[2022-07-03] MEDS ORDERED: DEXAMETHASONE SOD PHOSPHATE 4 MG/ML 1 ML VIAL IVP ONE (11:47)
[2022-07-03] MEDS ORDERED: ROCURONIUM 10 MG/ML (5 ML VIAL) IV ONE (12:39)
[2022-07-03] MEDS ORDERED: MIDAZOLAM 2 MG/2 ML VIAL ONE (12:39)
[2022-07-03] MEDS ORDERED: fentaNYL (PF) 50 MCG/ML 2 ML AMP ONE (12:39)
[2022-07-03] MEDS ORDERED: SUCCINYLCHOLINE CHLORIDE 200 MG/10 ML VIAL IV ONE (12:39)
[2022-07-03] MEDS ORDERED: ESMOLOL 100 MG/10 ML VIAL ONE (12:39)
[2022-07-03] MEDS ORDERED: PROPOFOL 10 MG/ML 20 ML VIAL IV ONE (12:39)
[2022-07-03] MEDS ORDERED: LIDOCAINE 2% INJ 20 MG/ML (2 ML VIAL) ONE (12:39)
[2022-07-03] MEDS ORDERED: GLYCOPYRROLATE 0.2 MG/ML 2 ML VIAL ONE (12:39)
[2022-07-03] MEDS ORDERED: NEOSTIGMINE 1 MG/ML 10 ML VIAL ONE (12:39)
[2022-07-03] MEDS ORDERED: LACTATED RINGERS 1,000 ML IV ONE ×2 (13:02)
--- NOTE | 2022-07-03 14:06 | P.PCN ---
Date of Procedure: 07/03/22 Operative Findings: Preoperative Diagnosis: Left lower lobe mass, measuring 2.3 cm in size Right lower lobe pulmonary nodule, less than 10 mm in size Postoperative Diagnosis: Left lower lobe mass, measuring 2.3 cm in size Right lower lobe pulmonary nodule, less than 10 mm in size Procedure(s) Performed: Flexible bronchoscopy Robotic-assisted bronchoscopy and addition to radial ultrasound evaluation of the lung mass Robotic-assisted test monitor needle aspirate, transbronchial biopsies, transbronchial brushing of the left lower lobe lobe mass in addition to a bronchioloalveolar lavage Robotic-assisted transbronchial biopsy of the right lower lobe pulmonary nodule Anesthesia: MARQUITAA Surgeon: Fuad Cota Estimated Blood Loss (ml): 0 Pathology: other Condition: stable Disposition: same day Operative Findings: A physical exam was performed. Informed consent was obtained from the patient after explaining all the risks (pneumothorax, life threatening bleeding, infection and adverse effects due to medications), benefits and alternatives to the procedure which the patient appeared to understand and so stated. The patient was connected to the monitoring devices. General anesthesia was induced and the patient was intubated by anesthesia. A final timeout was performed and the procedure confirmed by the attending staff bronchoscopist. The bronchoscope was inserted and the airway examined. The flexible bronchoscope was removed and the robotic bronchoscope was inserted. Registration was completed. I next guided the robotic bronchoscope using the navigation system into left lower lobe lateral segment segment. Once in proper position, the bronchoscope was frozen. The radial EBUS probe was placed through the bronchoscope and confirmed abnormal u/s images vs normal lung. A needle was placed through the working channel and under fluoroscopic guidance, we sampled the area thought to have the mass twice. We then used a cloud biopsy pattern with ultrasound confirmation for 4 additional passes with the needle. U/S evaluation was then used to reconfirm location. Forceps were next introduced through working channel and extended the appropriate distance and 4-6 transbronchial biopsies were performed using fluoroscopic guidance. The u/s probe was then reinserted to confirm location. When confirmed this process was repeated for a total of 6 transbronchial biopsies. After reassessment with EBUS, a brush was placed through the extendable working channel for 1 pass with fluoroscopic guidance. U/S evaluation was then used to confirm location. 20ml of saline was then instilled into the area of the lesion. The robotic bronchoscope was removed and the airway inspected with a flexible bronchoscope and 10 ml of effluent from the BAL was collected. I next guided the robotic bronchoscope using the navigation system into right lower lobe posterior segment segment. Once in proper position, the bronchoscope was frozen. The radial EBUS probe was placed through the bronchoscope and confirmed abnormal u/s images vs normal lung. A total of 2 transbronchial biopsy were obtained from the right lower lobe pulmonary nodule using a forceps. Minimal amount of endobronchial bleeding was encountered. The Olympus IT bronchoscope without difficutly. The airways were inspected and cleared of secretions and blood. Fluoroscopic check for pneumothorax was negative upon completion of the procedur e. There was 0 ml blood loss with the procedure. FINDINGS: 1.The airways appeared normal 2 Successful navigation, ultrasonographic identification, and biopsies of left lower lobe pulmonary mass and right lower lobe pulmonary nodule RECOMMENDATIONS: Await pathology and cytology results The referring physician will be alerted to the results when available. The patient was advised to follow up with the referring physician with the biopsy results Patient will be called with results.
[2022-07-03 14:14] VITALS: TEMP 97
[2022-07-03 15:05] VITALS: RESP 20
--- NOTE | 2022-07-03 15:18 | XR ---
EXAMINATION TYPE: XR chest 1V DATE OF EXAM: 07/03/2022 COMPARISON: None INDICATION: Postbiopsy right lower lobe left lower lobe TECHNIQUE: Single frontal view of the chest is obtained. FINDINGS: The heart size is normal. The pulmonary vasculature is normal. Some mild infiltrate may be in the left lower lobe. No pneumothorax is evident. Right-sided port has the tip in the superior vena cava region IMPRESSION: 1. No pneumothorax post biopsy. 2. Slight increased infiltrate within the left lower lobe can be postbiopsy changes. Follow-up recomm ended
[2022-07-03 15:25] VITALS: BP 151/84; PULSE 58
--- NOTE | 2022-07-03 16:47 | FL ---
Fluoroscopy INDICATION: Pain FINDINGS: Fluoroscopy time: 4 minutes 2 seconds. Total dose area product (DAP) in uGy*m?, mGy*cm? (or similar): 34.158 Images obtained: 9. IMPRESSIONS: 1. Documentation of fluoroscopy.
== END 2022-07-03 15:45 | disposition home or self-care (01) ==
LOC: ORWHC2ENDO 10:36
PROVIDERS: ATTEND Internal Medicine Critical Care Medicine
DX: C34.32 Malignant neoplasm of lower lobe, left bronchus or lung (principal); C78.5 Secondary malignant neoplasm of large intestine and rectum; I10 Essential (primary) hypertension; Z87.891 Personal history of nicotine dependence; K21.9 Gastro-esophageal reflux disease without esophagitis; Z85.3 Personal history of malignant neoplasm of breast; Z85.038 Personal history of other malignant neoplasm of large intestine; Z92.21 Personal history of antineoplastic chemotherapy; Z86.16 Personal history of COVID-19; Z80.1 Family history of malignant neoplasm of trachea, bronchus and lung
CPT/HCPCS: 31629; S2900; 31623; 31624; 31628; 31633; 71045; 71250; 88108; 88173; 88305; 88341; 88342

== ENCOUNTER → 2022-08-21 | Outpatient (CLI) | payer MEDICARE, BC ==
--- NOTE | 2022-08-21 08:49 | MM ---
Reason for Exam: Follow-up at short interval from prior study. Last screening mammogram was performed 10 month(s) ago. Patient History: Menarche at age 15. First Full-Term at age 24. Left ovary removed at age 64. Right ovary removed at age 64. Hysterectomy at age 64. Postmenopausal. Breast cancer, left, age 62. Colorectal cancer, age 62. Previous chest radiation therapy at age 62. Previous chemotherapy. Patient used Hormonal Contraceptives for 1 year. 08/12/2017, Lumpectomy on the Left side. 08/12/2017, Malignant Core Biopsy on the left side. 07/16/2017, High risk Core Biopsy on the right side. 07/16/2017, High risk Core Biopsy on the left side. 2017, Radiation Therapy on the left side. Paternal grandmother had breast cancer, age 50. Paternal aunt had breast cancer, age 50. Prior Study Comparison: 06/26/2017 Bilateral Diagnostic Ultrasound, [facility]. 03/08/2018 Bilateral Diagnostic Mammogram, [facility]. 09/16/2018 Bilateral Diagnostic Mammogram, [facility]. 09/16/2018 Left Diagnostic Ultrasound, [facility]. 09/20/2019 Bilateral Diagnostic Mammogram, [facility]. 10/24/2020 Bilateral Diagnostic Mammogram, [facility]. 10/25/2021 Bilateral MG 3D diag mammo w/cad JERAMIE, [facility]. 02/25/2022 Right MG 3D diag mammo w/cad RT, [facility]. 02/25/2022 Right US breast RT, [facility]. Tissue Density: The breast tissue is heterogeneously dense. This may lower the sensitivity of mammography. Findings: Analyzed By CAD. No new suspicious masses within either breast. Posttreatment changes of the left breast biopsy clip identified. Biopsy clip identified within the right breast. Postbiopsy change of the right breast. Benign-appearing calcifications bilaterally. No new suspicious group of calcifications within either breast. Overall Assessment: Benign, BI-RAD 2 Management: Screening Mammogram of both breasts in 1 year. A clinical breast exam by your physician is recommended on an annual basis and results should be correlated with mammographic findings. This exam should not preclude additional follow-up of suspicious palpable abnormalities. Results were given to the patient verbally at the time of exam. Note on Katelin scores and lifetime risk: 1. A Katelin score greater than 3% is considered moderate risk. If this is the case, consider specialist referral to assess eligibility for a risk reducing agent. If overall lifetime risk for the development of breast cancer is 20% or higher, the patient may qualify for future screening with alternating mammogram and breast MRI. Electronically signed and approved by: Abdoul Neves D.O.
== END | disposition home or self-care (01) ==
LOC: RADMAMWWP 08:10
PROVIDERS: ATTEND Family Medicine
DX: N63.10 Unspecified lump in the right breast, unspecified quadrant (principal); N63.20 Unspecified lump in the left breast, unspecified quadrant; Z78.0 Asymptomatic menopausal state; Z80.3 Family history of malignant neoplasm of breast
CPT/HCPCS: 77066; G0279; 77062

== ENCOUNTER 2022-08-31 06:07 | Emergency (ER) | payer MEDICARE, BC ==
[2022-08-31 06:12] VITALS: TEMP 98.4
[2022-08-31] MEDS ORDERED: SODIUM CHLORIDE 0.9% 500 ML 500 ML IV STA (06:34)
[2022-08-31] MEDS ORDERED: HYDROmorphone 0.5 MG/0.5 ML SYRINGE IVP STA (06:35)
--- NOTE | 2022-08-31 06:44 | ED ---
General Adult HPI - General Chief complaint: Back Pain/Injury Stated complaint: Back pain Time Seen by Provider: 08/31/22 06:17 Source: patient Mode of arrival: ambulatory Limitations: no limitations - History of Present Illness Initial comments: This is a nontoxic, well-appearing 67-year-old female that presents to the emergency room with right mid back pain by her ribs. Patient states that pain started Thursday or Thursday. Recently started taking oral chemo with doses taken Thursday and Thursday. Did have a fever on but did not check her temperature. Has not had fever since. She also developed a rash to her chest which she believes is also related to the chemo. States is scheduled for her first infusion on Thursday. Sees Dr James. Denies any nausea vomiting. No shortness of breath or cough. No bowel or bladder incontinence. Patient has a history of left breast cancer with metastasis to her ovaries and colon. Also has history of hypertension and GERD. Surgical history of hysterectomy, cholecystectomy. -: days(s) (5) Location: back (right mid back) Radiation: non-radiation Severity scale (1-10): 9 Quality: sharp, constant Consistency: constant Improves with: none Worsens with: none Associated Symptoms: fever/chills, rash (chest) - Related Data Home Medications Medication Instructions Recorded Confirmed Multivitamins, Thera [Multivitamin 1 tab PO DAILY 07/10/17 07/02/22 (formulary)] Tamoxifen Citrate 20 mg PO DAILY 12/16/17 07/02/22 Calcium And Magnesium Oral Tab 1 tab PO DAILY 01/20/20 07/02/22 (Unknown Strength) Cholecalciferol [Vitamin D3 (25 50 mcg PO DAILY 05/02/20 07/02/22 Mcg = 1000 Iu)] Cyanocobalamin [Vitamin B-12] 500 mcg PO DAILY 05/02/20 07/02/22 Aspirin [Adult Low Dose Aspirin EC] 81 mg PO DAILY 03/05/21 07/02/22 Ferrous Sulfate [Feosol] 325 mg PO DAILY 03/05/21 07/02/22 [place]-3 Fatty Acids/Fish Oil [Fish 1 each PO BID 03/05/21 07/02/22 Oil 1,000 mg Softgel] Ascorbic Acid [Vitamin C] 1,000 mg PO DAILY 06/05/22 07/02/22 DULoxetine HCL [Cymbalta] 20 mg PO DAILY 06/05/22 07/02/22 Naproxen [Naprosyn] 500 mg PO BID 06/05/22 07/02/22 Valsartan [Diovan] 320 mg PO DAILY 06/05/22 07/02/22 Previous Rx's Medication Instructions Recorded traMADol HCl [Ultram] 50 mg PO Q6H PRN #20 tab 08/31/22 Allergies Allergy/AdvReac Type Severity Reaction Status Date / Time No Known Allergies Allergy Verified 08/31/22 06:12 Review of Systems ROS Statement: Those systems with pertinent positive or pertinent negative responses have been documented in the HPI. ROS Other: All systems not noted in ROS Statement are negative. Past Medical History Past Medical History: Cancer, GERD/Reflux, Hypertension Additional Past Medical History / Comment(s): LT BREAST CANCER, colon cancer stage II-METS TO OVARIES-with chemo. last chemo june 2020. METS to both lungs History of Any Multi-Drug Resistant Organisms: None Reported Past Surgical History: Bowel Resection, Breast Surgery, Cholecystectomy, Hysterectomy Additional Past Surgical History / Comment(s): LT BREAST LUMPECTOMY-RADIATION, COLONOSCOPY, HAS PORT A CATH Past Anesthesia/Blood Transfusion Reactions: No Reported Reaction Past Psychological History: No Psychological Hx Reported Smoking Status: Former smoker Past Alcohol Use History: Occasional Past Drug Use History: None Reported - Past Family History Mother Family Medical History: COPD, Dementia Father Family Medical History: AFIB, Cancer Additional Family Medical History / Comment(s): Lung cancer. Sister(s) Family Medical History: Cancer Additional Family Medical History / Comment(s): VOCAL CORD CANCER General Exam Limitations: no limitations General appearance: alert, in no apparent distress Head exam: Present: atraumatic Eye exam: Present: normal appearance. Absent: scleral icterus, conjunctival injection, periorbital swelling Neck exam: Absent: tenderness, meningismus Respiratory exam: Present: normal lung sounds bilaterally. Absent: respiratory distress, accessory muscle use Cardiovascular Exam: Present: regular rate, tachycardia GI/Abdominal exam: Present: soft Extremities exam: Present: full ROM, normal capillary refill. Absent: pedal edema, calf tenderness Back exam: Present: tenderness, paraspinal tenderness (right thoracic), other (topical pain patch removed). Absent: CVA tenderness (R), CVA tenderness (L), vertebral tenderness Neurological exam: Present: alert, oriented X3 Psychiatric exam: Present: normal affect, normal mood Skin exam: Present: warm, dry, normal color, rash (chest maculopapular). Absent: cyanosis, diaphoretic, pallor Course Vital Signs 08/31/22 08/31/22 08/31/22 06:08 07:30 10:59 Temperature 98.4 F Pulse Rate 102 H 83 75 Respiratory 20 17 20 Rate Blood Pressure 183/102 155/79 154/84 O2 Sat by Pulse 97 93 L 96 Oximetry - Reevaluation(s) Reevaluation #1: 08/31/22 07:29 Patient observed resting comfortably, reports some pain relief after Dilaudid. No dyspnea. States that she did have radiation 3 weeks ago and thinks may be related. D-dimer pending. Also states did not take her morning medications including her antihypertensive Time: 07:29 Reevaluation #2: 08/31/22 08:14 Nurse called with alert d-dimer elevation, CT angiogram ordered Time: 08:14 EKG Findings - EKG Results: EKG: interpreted by ERMD, sinus rhythm (EKG interpreted by me shows sinus rhythm with a ventricular rate of 85, OH interval 0.159, QRS 0.81, QTC 0.427, left axis deviation, no concerning changes compared to old 05/02/2020) Medical Decision Making - Medical Decision Making Was pt. sent in by a medical professional or institution (, [facility], DIESEL TRUCK CRANE OPERATOR, urgent care, hospital, or [facility]...) When possible be specific @ -No Did you speak to anyone other than the patient for history (EMS, parent, family, police, friend...)? What history was obtained from this source @ -No Did you review nursing and triage notes (agree or disagree)? Why? @ -I reviewed and agree with nursing and triage notes Were old charts reviewed (outside hosp., previous admission, EMS record, old EKG, old radiological studies, urgent care reports/EKG's, [facility] records)? Report findings @ Previous imaging, EKG and labs Differential Diagnosis (chest pain, altered mental status, abdominal pain women, abdominal pain men, vaginal bleeding, weakness, fever, dyspnea, syncope, hea dache, dizziness, GI bleed, back pain, seizure, CVA, palpatations, mental health, musculoskeletal)? @ -Differential Back Pain: Strain, zoster, cauda equina syndrome, epidural abscess, vertebral osteomyelitis, discitis, fracture, subluxation, disc herniation, DJD, spinal stenosis, dissection, AAA, pancreatitis, peptic ulcer disease, pyelonephritis, kidney stone, this is not meant to be an all-inclusive list. EKG interpreted by me (3pts min.). @ -yes EKG interpreted by me shows sinus rhythm with a ventricular rate of 85, OH interval 0.159, QRS 0.81, QTC 0.427, left axis deviation, no concerning changes compared to old 05/02/2020 X-rays interpreted by me (1pt min.). @ -yes Chest x-ray interpreted by me shows no evidence of focal consolidation, trachea midline, cardiac silhouette within normal size. CT interpreted by me (1pt min.). @ -no U/S interpreted by me (1pt. min.). @ -None done What testing was considered but not performed or refused? (CT, X-rays, U/S, labs)? Why? @ -None What meds were considered but not given or refused? Why? @ -antibiotics were considered however CT does not reveal any evidence of pneumonia, no fever, no leukocytosis Did you discuss the management of the patient with other professionals (professionals i.e. , PA, DIESEL TRUCK CRANE OPERATOR, lab, RT, psych nurse, drug abuse social worker, scrap handler, te acher, air defense control officer, caseworker intake)? Give summary @ -No Was smoking cessation discussed for >3mins.? @ -No Was critical care preformed (if so, how long)? @ -No Were there social determinants of health that impacted care today? How? (Homelessness, low income, unemployed, alcoholism, drug addiction, transportation, low edu. Level, literacy, decrease access to med. care, long-term, rehab)? @ -No Was there de-escalation of care discussed even if they declined (Discuss DNR or withdrawal of care, Hospice)? DNR status @ -No What co-morbidities impacted this encounter? (DM, HTN, Smoking, COPD, CAD, Cancer, CVA, ARF, Chemo, Hep., AIDS, mental health diagnosis, sleep apnea, morbid obesity)? @ -Lung cancer with metastasis, hypertension, GERD Was patient admitted / discharged? Hospital course, mention meds given and route, prescriptions, significant lab abnormalities, going to OR and other pertinent info. @ -Discharged This is a nontoxic, well-appearing 67-year-old female that presents to the emergency room with right mid back pain by her ribs. Patient states that pain started Thursday or Thursday. Recently started taking oral chemo with doses taken Thursday and Thursday. Did have a fever on but did not check her temperature. Has not had fever since. She also developed a rash to her chest which she believes is also related to the chemo. States is scheduled for her first infusion on Thursday. Sees Dr James. Denies any nausea vomiting. No shortness of breath or cough. No bowel or bladder incontinence. Patient has a history of left breast cancer with metastasis to her ovaries and colon. Also has history of hypertension and GERD. Surgical history of hysterectomy, cholecystectomy. Patient did try a topical pain patch with no relief. PET scan CT perfusion 05/21/[address] James shows progression of disease with interval increase in FDG activity and size of pulmonary nodules dating back to prior PET scan 11/16/[address] on 05/21/2022. No suspicious FDG activity in osseous structures. CT performed on May 21, 2022 showed a mild left hydronephrosis and hydroureter with no obstructing etiology. Chest CT June 2022 shows bibasilar nodular densities larger on the left. Mass within the right lower lobe lung base measuring 1.9 x 3.2 cm. Nodular density posterior right lung base measuring 1.2 x 1.0 cm Pathology from lung biopsy collected by 07/03/22 shows left lower lobe lung non- small cell carcinoma consistent with adenocarcinoma. Biopsy showed metastatic colorectal adenocarcinoma Well's score for PE shows moderate risk. Patient denies dyspnea or cough but complains of sharp mid back pain therefore D-dimer was performed EKG interpreted by va shows sinus rhythm with a ventricular rate of 85, OH interval 0.159, QRS 0.81, QTC 0.427, left axis deviation, no concerning changes compared to old 05/02/2020 Troponin negative at 0.012. CBC and electrolytes show no concerning values compared to February of this year. Chest x-ray interpreted by va shows no evidence of focal consolidation, trachea midline, cardiac silhouette within normal size. Radiologist interpretation chest x-ray and left lung infiltrates consistent with acute process possibly pneumonia. Clinical correlation short-term follow-up to resolution is recommended. D-dimer 1.49, CT was ordered. CT angiogram chest shows no evidence of pulmonary embolism. Bilateral lung masses as described above consistent with history of metastatic disease to lung essentially unchanged compared to previous. Interval development of moderate right hydronephrosis UA ordered no evidence of infection. On physical exam patient in no acute distress. Lungs sounds are clear to auscultation. Vital signs are stable. Pain may be musculoskeletal versus lung cancer. Patient was discharged home to follow up with her primary care doctor. Given ultram for pain. She is agreeable to this plan of care. Case discussed with Dr. Jones. Undiagnosed new problem with uncertain prognosis? @ -No Drug Therapy requiring intensive monitoring for toxicity (Heparin, Nitro, Insulin, Cardizem)? @ -No Were any procedures done? @ -No Diagnosis/symptom? @ -Musculoskeletal back pain, lung cancer Acute, or Chronic, or Acute on Chronic? @ -Acute Uncomplicated (without systemic symptoms) or Complicated (systemic symptoms)? @ -Complicated Side effects of treatment? @ -No Exacerbation, Progression, or Severe Exacerbation? @ -No Poses a threat to life or bodily function? How? (Chest pain, [place], [place], pneumonia, PE, COPD, DKA, ARF, appy, cholecystitis, CVA, Diverticulitis, Homicidal, Suicidal, threat to staff... and all critical care pts) @ -No - Lab Data Result diagrams: 08/31/22 07:01 08/31/22 07:01 Lab Results 08/31/22 08/31/22 08/31/22 Range/Units 07:01 07:01 07:01 WBC 7.3 (3.8-10.6) k/uL RBC 3.42 L (3.80-5.40) m/uL Hgb 11.3 L (11.4-16.0) gm/dL Hct 33.8 L (34.0-46.0) % MCV 98.8 (80.0-100.0) fL MCH 33.1 (25.0-35.0) pg MCHC 33.5 (31.0-37.0) g/dL RDW 13.2 (11.5-15.5) % Plt Count 156 (150-450) k/uL MPV 8.1 Neutrophils % 79 % Lymphocytes % 7 % Monocytes % 7 % Eosinophils % 3 % Basophils % 0 % Neutrophils # 5.8 (1.3-7.7) k/uL Lymphocytes # 0.5 L (1.0-4.8) k/uL Monocytes # 0.5 (0-1.0) k/uL Eosinophils # 0.2 (0-0.7) k/uL Basophils # 0.0 (0-0.2) k/uL PT 9.4 (9.0-12.0) sec INR 0.9 (<1.2) APTT 21.1 L (22.0-30.0) sec D-Dimer 1.49 H (<0.60) mg/L FEU Sodium 141 (137-145) mmol/L Potassium 4.3 (3.5-5.1) mmol/L Chloride 110 H (98-107) mmol/L Carbon Dioxide 21 L (22-30) mmol/L Anion Gap 10 mmol/L BUN 23 H (7-17) mg/dL Creatinine 0.99 (0.52-1.04) mg/dL Est GFR (CKD-EPI)AfAm 68 (>60 ml/min/1.73 sqM) Est GFR (CKD-EPI)NonAf 59 (>60 ml/min/1.73 sqM) Glucose 124 H (74-99) mg/dL Calcium 9.2 (8.4-10.2) mg/dL Magnesium 2.0 (1.6-2.3) mg/dL Total Bilirubin 0.4 (0.2-1.3) mg/dL AST 21 (14-36) U/L ALT 19 (4-34) U/L Alkaline Phosphatase 122 (38-126) U/L Troponin I (0.000-0.034) ng/mL Total Protein 6.8 (6.3-8.2) g/dL Albumin 3.8 (3.5-5.0) g/dL Urine Color Urine Appearance (Clear) Urine pH (5.0-8.0) Ur Specific [place] (1.001-1.035) Urine Protein (Negative) Urine Glucose (UA) (Negative) Urine Ketones (Negative) Urine Blood (Negative) Urine Nitrite (Negative) Urine Bilirubin (Negative) Urine Urobilinogen (<2.0) mg/dL Ur Leukocyte Esterase (Negative) Urine RBC (0-5) /hpf Urine WBC (0-5) /hpf 08/31/22 08/31/22 Range/Units 07:01 10:08 WBC (3.8-10.6) k/uL RBC (3.80-5.40) m/uL Hgb (11.4-16.0) gm/dL Hct (34.0-46.0) % MCV (80.0-100.0) fL MCH (25.0-35.0) pg MCHC (31.0-37.0) g/dL RDW (11.5-15.5) % Plt Count (150-450) k/uL MPV Neutrophils % % Lymphocytes % % Monocytes % % Eosinophils % % Basophils % % Neutrophils # (1.3-7.7) k/uL Lymphocytes # (1.0-4.8) k/uL Monocytes # (0-1.0) k/uL Eosinophils # (0-0.7) k/uL Basophils # (0-0.2) k/uL PT (9.0-12.0) sec INR (<1.2) APTT (22.0-30.0) sec D-Dimer (<0.60) mg/L FEU Sodium (137-145) mmol/L Potassium (3.5-5.1) mmol/L Chloride (98-107) mmol/L Carbon Dioxide (22-30) mmol/L Anion Gap mmol/L BUN (7-17) mg/dL Creatinine (0.52-1.04) mg/dL Est GFR (CKD-EPI)AfAm (>60 ml/min/1.73 sqM) Est GFR (CKD-EPI)NonAf (>60 ml/min/1.73 sqM) Glucose (74-99) mg/dL Calcium (8.4-10.2) mg/dL Magnesium (1.6-2.3) mg/dL Total Bilirubin (0.2-1.3) mg/dL AST (14-36) U/L ALT (4-34) U/L Alkaline Phosphatase (38-126) U/L Troponin I <0.012 (0.000-0.034) ng/mL Total Protein (6.3-8.2) g/dL Albumin (3.5-5.0) g/dL Urine Color Colorless Urine Appearance Clear (Clear) Urine pH 5.0 (5.0-8.0) Ur Specific [place] 1.033 (1.001-1.035) Urine Protein Negative (Negative) Urine Glucose (UA) Negative (Negative) Urine Ketones Negative (Negative) Urine Blood Small H (Negative) Urine Nitrite Negative (Negative) Urine Bilirubin Negative (Negative) Urine Urobilinogen <2.0 (<2.0) mg/dL Ur Leukocyte Esterase Small H (Negative) Urine RBC 1 (0-5) /hpf Urine WBC 3 (0-5) /hpf Disposition Clinical Impression: Acute thoracic back pain, Hydronephrosis, right Disposition: HOME SELF-CARE Condition: Good Instructions (If sedation given, give patient instructions): Hydronephrosis (ED), Back Pain (ED) Additional Instructions: Take pain medication as prescribed. Do not drive, operate heavy machinery or drink alcohol when taking this medication. You can continue using topical pain relievers. Follow-up with your primary care doctor tomorrow. Return to the emergency room with any new or concerning symptoms. Prescriptions: traMADol HCl [Ultram] 50 mg PO Q6H PRN #20 tab PRN Reason: Pain Is patient prescribed a controlled substance at d/c from ED?: Yes When asked, does pt state using other controlled substances?: No Referrals: Josefa Asif MD [Primary Care Provider] - 1-2 days Time of Disposition: 10:32
[2022-08-31 07:10] LABS: Basophils % (A) 0 %; Eosinophils # (A) 0.2 k/uL (0-0.7); Eosinophils % (A) 3 %; HCT 33.8 % (34.0-46.0); HGB 11.3 gm/dL (11.4-16.0); Lymphocytes # (A) 0.5 k/uL (1.0-4.8); Lymphocytes % (A) 7 %; MCH 33.1 pg (25.0-35.0); MCHC 33.5 g/dL (31.0-37.0); MCV 98.8 fL (80.0-100.0); Mean Platelet Volume 8.1; Monocytes # (A) 0.5 k/uL (0-1.0); Monocytes % (A) 7 %; Neutrophils # (A) 5.8 k/uL (1.3-7.7); Neutrophils % (A) 79 %; Platelet Count 156 k/uL (150-450); RBC 3.42 m/uL (3.80-5.40); RDW 13.2 % (11.5-15.5); WBC 7.3 k/uL (3.8-10.6)
[2022-08-31 07:27] LABS: ALT 19 U/L (4-34); AST 21 U/L (14-36); African American GFR (CKD) 68 (>60 ml/min/1.73 sqM); Albumin 3.8 g/dL (3.5-5.0); Alkaline Phosphatase 122 U/L (38-126); Anion Gap 10 mmol/L; Blood Urea Nitrogen 23 mg/dL (7-17); Calcium 9.2 mg/dL (8.4-10.2); Carbon Dioxide 21 mmol/L (22-30); Chloride 110 mmol/L (98-107); Glucose 124 mg/dL (74-99); Non-African American GFR(CKD) 59 (>60 ml/min/1.73 sqM); Potassium 4.3 mmol/L (3.5-5.1); Sodium 141 mmol/L (137-145); Total Bilirubin 0.4 mg/dL (0.2-1.3); Total Protein 6.8 g/dL (6.3-8.2)
[2022-08-31 07:37] LABS: INR 0.9 (<1.2); Prothrombin Time 9.4 sec (9.0-12.0)
[2022-08-31] MEDS ORDERED: HYDROmorphone 0.5 MG/0.5 ML SYRINGE IVP PRN (07:39)
--- NOTE | 2022-08-31 07:54 | XR ---
EXAMINATION TYPE: XR chest 2V DATE OF EXAM: 08/31/2022 COMPARISON: 07/03/2022 HISTORY: Chest pain TECHNIQUE: Frontal and lateral views of the chest are obtained. FINDINGS: There is a small focal opacity in the left upper lung zone and an infiltrate in the left lung base o r not present on the prior study. The cardiac silhouette size is within normal limits. The osseous structures are intact. There is a Mediport catheter on the right terminating in the SVC/RA junction. IMPRESSION: New left lung infiltrates consistent with an acute process, possibly pneumonia. Clinical correlation short-term follow-up to resolution is recommended.
[2022-08-31 08:24] LABS: Partial Thromboplastin Time 21.1 sec (22.0-30.0)
--- NOTE | 2022-08-31 08:52 | CT ---
EXAMINATION TYPE: CT angio chest DATE OF EXAM: 08/31/2022 8:34 AM COMPARISON: CT chest dated 07/03/2022 HISTORY: back pain, elevated dimer, active lung cancer.hx of breast and colon ca with Mets to lung. CT DLP: 404.3 mGycm Automated exposure control for dose reduction was used. CONTRAST: CTA scan of the thorax is performed with IV Contrast, patient injected with 65 mL of Isovue 370, pulm onary embolism protocol. 3-D postprocessing was performed.. FINDINGS: There are mild to moderate emphysematous changes in the lung apices.There is a 18 mm subpleural paren chymal mass in the left upper lobe, a 18 x 22 mm mass in the left lower lobe , and to talk to 15 mm m ass is in the right lung base consistent with the provided history of lung cancer metastatic disease. There are no pleural effusions or pneumothorax. The great vessels chest are normal and there is no mediastinal, hilar or axillary adenopathy. There a re no filling defects within the pulmonary arteries or branches to suggest pulmonary embolism. There are no focal osseous lesions. There is a Mediport catheter on the right terminating in the right brachiocephalic vein. Limited scanning through the upper abdomen reveals moderate hydronephrosis of the right kidney and a ureteral stent in the left kidney. There are surgical absence of the gallbladder. IMPRESSION: 1. No evidence of pulmonary embolism. 2. Bilateral lung masses as described above consistent with the history of metastatic disease to the lung essentially unchanged compared to previous. 3. interval development of moderate right hydronephrosis.
[2022-08-31 10:26] LABS: Appearance,Urine Clear (Clear); Bilirubin,Urine Negative (Negative); Blood,Urine Small (Negative); Color,Urine Colorless; Glucose,Urine (UA) Negative (Negative); Ketones,Urine Negative (Negative); Leukocyte Esterase,Urine Small (Negative); Nitrite,Urine Negative (Negative); Protein,Urine Negative (Negative); RBC,Urine 1 /hpf (0-5); Specific Gravity,Urine 1.033 (1.001-1.035); Urobilinogen,Urine <2.0 mg/dL (<2.0); WBC,Urine 3 /hpf (0-5)
[2022-08-31 11:02] VITALS: BP 154/84; PULSE 75; RESP 20
== END 2022-08-31 11:00 | disposition home or self-care (01) ==
LOC: EC 06:07
DX: N13.30 Unspecified hydronephrosis (principal); C34.90 Malignant neoplasm of unspecified part of unspecified bronchus or lung; I10 Essential (primary) hypertension; Z87.891 Personal history of nicotine dependence; Z79.82 Long term (current) use of aspirin; Z79.899 Other long term (current) drug therapy
CPT/HCPCS: 36415; 93005; 85379; 80053; 83735; 84484; 85025; 85610; 85730; 81001; 71046; 71275; 99284; 96374; 96361; J1170; Q9967

== ENCOUNTER → 2023-01-22 | Outpatient (CLI) | payer MEDICARE, BC ==
[2023-01-22 10:44] LABS: African American GFR (CKD) 82 (>60 ml/min/1.73 sqM); Blood Urea Nitrogen 21 mg/dL (7-17); Non-African American GFR(CKD) 71 (>60 ml/min/1.73 sqM)
--- NOTE | 2023-01-22 15:31 | CT ---
EXAMINATION TYPE: CT ChestAbdPelvis w con DATE OF EXAM: 01/22/2023 COMPARISON: Most recent prior CT November 18, 2022 and older studies HISTORY: follow up colon ca CT DLP: 1757 mGycm. Automated Exposure Control for Dose Reduction was Utilized. CONTRAST: CT scan of the thorax, abdomen and pelvis is performed with oral and with IV Contrast, patient inject ed with 100 mL of Isovue 300. FINDINGS: LUNGS: Mild underlying emphysematous changes redemonstrated. Persistent mild to moderate irregular co nsolidation and/or atelectasis/scarring in the bilateral lower lungs. Prior visualized hypermetabolic pulmonary nodule in the left lower lung on most recent PET/CT is not clearly seen similar to most re cent CT. No significant pleural effusion or pneumothorax seen bilaterally. No obvious new nodules or masses. MEDIASTINUM: There are no greater than 1 cm hilar or mediastinal lymph nodes. No cardiomegaly or pe ricardial effusion is seen. Mild coronary artery calcification is redemonstrated. OTHER: Posttreatment change to the medial left breast axial image 29 is redemonstrated. Stable right subclavian Mediport catheter. LIVER/GB: Cholecystectomy clips are redemonstrated.. PANCREAS: No significant abnormality is seen. SPLEEN: No significant abnormality is seen. ADRENALS: No significant abnormality is seen. KIDNEYS: Incidental measure 1.0 cm simple appearing thin-walled cyst left kidney medially axial image 27 series 8. Left-sided double-J ureter stent redemonstrated. BOWEL: Oral contrast reaches level of the rectum. Surgical changes from partial proximal colectomy an d small bowel anastomosis redemonstrated. GENITAL ORGANS: Uterus surgically absent. Scattered tiny bilateral pelvic phleboliths redemonstrated. LYMPH NODES: No greater than 1cm abdominal or pelvic lymph nodes are appreciated. OSSEOUS STRUCTURES: No significant abnormality is seen. OTHER: No significant additional abnormality is seen. IMPRESSION: Posttreatment changes to the left lower lung pulmonary nodule redemonstrated. No new clotilde picious masses or adenopathy to suggest active neoplastic recurrence. No significant change from most recent prior CT.
== END | disposition home or self-care (01) ==
LOC: RADCTMAIN 09:49
PROVIDERS: ATTEND Internal Medicine Hematology & Oncology
DX: C18.2 Malignant neoplasm of ascending colon (principal); D05.12 Intraductal carcinoma in situ of left breast; D47.2 Monoclonal gammopathy; R91.1 Solitary pulmonary nodule
CPT/HCPCS: 82565; 84520; 71260; 74177; 36415; Q9967

== ENCOUNTER → 2023-01-23 | Outpatient (CLI) | payer MEDICARE, BC ==
[2023-01-23 18:23] LABS: Basophils # (A) 0.12 X 10*3/uL (0.00-0.10); Basophils % (A) 1.3 %; Eosinophils # (A) 0.25 X 10*3/uL (0.04-0.35); Eosinophils % (A) 2.7 %; HCT 41.2 % (37.2-46.3); HGB 12.1 g/dL (12.0-15.0); Lymphocytes # (A) 1.67 X 10*3/uL (0.90-5.00); Lymphocytes % (A) 17.9 %; MCH 29.8 pg (27.0-32.0); MCHC 29.4 g/dL (32.0-37.0); MCV 101.5 FL (80.0-97.0); Mean Platelet Volume 10.2 FL (9.5-12.2); Monocytes # (A) 0.74 X 10*3/uL (0.20-1.00); Monocytes % (A) 7.9 %; NRBC Per 100 WBC 0.05 X 10*3/uL (0.00-0.01); Neutrophils # (A) 6.52 X 10*3/uL (1.80-7.70); Neutrophils % (A) 69.7 %; Platelet Count 218 X 10*3/uL (140-440); RBC 4.06 X 10*6/uL (4.10-5.20); RDW 15.1 % (11.5-14.5); WBC 9.35 X 10*3/uL (4.50-10.00)
[2023-01-23 18:33] LABS: Blood Urea Nitrogen 19.6 mg/dL (9.0-27.0); Calcium 9.4 mg/dL (8.7-10.3); Carbon Dioxide 23.7 mmol/L (21.6-31.8); Chloride 108 mmol/L (96-109); Glucose 94 mg/dL (70-110); Potassium 4.1 mmol/L (3.5-5.5); Sodium 143 mmol/L (135-145)
== END | disposition home or self-care (01) ==
LOC: LABPAT 10:10
PROVIDERS: ATTEND Urology
DX: Z01.812 Encounter for preprocedural laboratory examination (principal); N13.1 Hydronephrosis with ureteral stricture, not elsewhere classified
CPT/HCPCS: 80048; 85025

== ENCOUNTER 2023-01-29 12:39 | Day surgery (SDC) | payer MEDICARE, BC ==
[2023-01-27 10:16] VITALS: BMI 30.8
--- NOTE | 2023-01-28 06:53 | P.GSHP ---
History of Present Illness H&P Date: 01/28/23 Chief Complaint: Hydronephrosis The patient is a 67-year-old white female with a history of multiple malignancies, including breast and colon cancer. She is now receiving systemic chemotherapy. She was found earlier this year to have left hydroureteronephrosis. She underwent cystoscopy with left ureteral stent insertion on 07/16/2022. At that time, she was found to have a left distal ureteral stricture, which was opened with balloon dilation. CT scan in August showed interval development of right hydronephrosis. She underwent left ureteral stent change on 10/22/2022. The removed stent was a 26 cm, 7-Greenlandic double-J ureteral stent which was partially calcified. A right retrograde pyelogram showed no evidence of right hydronephrosis. - Constitutional Constitutional: Denies chills, Denies fever - Genitourinary (Female) Genitourinary: Reports flank pain, Reports hematuria, Denies dysuria Past Medical History Past Medical History: Cancer, Hypertension Additional Past Medical History / Comment(s): LT BREAST CANCER, colon cancer- METS TO OVARIES-with chemo. last chemo june 2020, METS to both lungs currently doing chemo History of Any Multi-Drug Resistant Organisms: None Reported Past Surgical History: Bowel Resection, Breast Surgery, Cholecystectomy, Hysterectomy Additional Past Surgical History / Comment(s): LT BREAST LUMPECTOMY-RADIATION, COLONOSCOPY, HAS PORT A CATH, LUNG BX Past Anesthesia/Blood Transfusion Reactions: No Reported Reaction Past Psychological History: No Psychological Hx Reported Smoking Status: Former smoker Past Alcohol Use History: Occasional Additional Past Alcohol Use History / Comment(s): STARTED SMOKING AT AGE 20 quit December 2017. Past Drug Use History: None Reported - Past Family History Mother Family Medical History: COPD, Dementia Father Family Medical History: AFIB, Cancer Additional Family Medical History / Comment(s): Lung cancer. Sister(s) Family Medical History: Cancer Additional Family Medical History / Comment(s): VOCAL CORD CANCER Medications and Allergies Home Medications Medication Instructions Recorded Confirmed Type Multivitamins, Thera [Multivitamin 1 tab PO DAILY 07/10/17 01/27/23 History (formulary)] Tamoxifen Citrate 20 mg PO DAILY 12/16/17 01/27/23 History Cholecalciferol [Vitamin D3 (25 50 mcg PO DAILY 05/02/20 01/27/23 History Mcg = 1000 Iu)] Cyanocobalamin [Vitamin B-12] 500 mcg PO DAILY 05/02/20 01/27/23 History [place]-3 Fatty Acids/Fish Oil [Fish 1 cap PO DAILY 03/05/21 01/27/23 History Oil 1,000 mg Softgel] Ascorbic Acid [Vitamin C] 1,000 mg PO DAILY 06/05/22 01/27/23 History Cetuximab [Erbitux] 1 dose IV MO 09/04/22 11/10/22 History Diphenoxylate HCl/Atropine 2 tab PO QID PRN 09/04/22 01/27/23 History [Lomotil 2.5-0.025 mg Tablet] Encorafenib [Braftovi] 300 mg PO HS 09/04/22 01/27/23 History Prochlorperazine Maleate 10 mg PO Q6H PRN 09/04/22 01/27/23 History Scopolamine [Scopolamine 1 MG/72 1 patch TRANSDERM Q72H PRN 09/04/22 01/27/23 History HR patch] Valsartan 320 mg PO DAILY 09/04/22 01/27/23 History DULoxetine HCL [Cymbalta] 20 mg PO DAILY 01/27/23 01/27/23 History Metoprolol Succinate [Metoprolol 25 mg PO DAILY 01/27/23 01/27/23 History Succinate ER] Nf-Magnesium/Calcium Combo 1 tab PO DAILY 01/27/23 01/27/23 History predniSONE [Deltasone] 20 mg PO DAILY 01/27/23 01/27/23 History Allergies Allergy/AdvReac Type Severity Reaction Status Date / Time No Known Allergies Allergy Verified 01/27/23 09:45 Surgical - Exam - General well developed, well nourished, no distress - Respiratory normal respiratory effort - Abdomen Abdomen: soft, non tender, no guarding, no rigid, no rebound - Psychiatric oriented to time, oriented to person, oriented to place, speech is normal, memory intact Assessment and Plan (1) Hydronephrosis with ureteral stricture, not elsewhere classified Status: Acute Code(s): N13.1 - HYDRONEPHROSIS W URETERAL STRICTURE, NEC SNOMED Code(s): 92327939 Plan: Cystoscopy, left ureteral stent change. The procedure has been reviewed in detail with the patient. She is aware of potential risks, which include anesthesia, infection, loss of ureteral access, and ureteral injury.renetta
[~2023-01-29 12:39] MED LIST changes: +DEXAMETHASONE SOD PHOSPHATE 4 MG/ML 1 ML VIAL IV ONE; +HYDROmorphone 0.5 MG/0.5 ML SYRINGE IVP PRN; +LIDOCAINE 1% (10MG/ML) FOR IV START INTRADERMA PRN; +ONDANSETRON 4 MG/2 ML VIAL IVP ONE; +droPERidol 5 MG/2 ML VIAL IVP ONE
[2023-01-29 13:20] LABS: Glucose,Whole Blood 85 mg/dL (70-110)
[2023-01-29] MEDS ORDERED: METOCLOPRAMIDE 5 MG/ML 2 ML VIAL ONE (13:26)
[2023-01-29 13:27] VITALS: TEMP 97.6
[2023-01-29] MEDS ORDERED: MIDAZOLAM 2 MG/2 ML VIAL IVP ONE (13:28)
[2023-01-29] MEDS ORDERED: HYDROCORTISONE SUCCINATE 100 MG/2 ML VIAL IVP ONE (13:28)
[2023-01-29] MEDS ORDERED: FAMOTIDINE 20 MG/2 ML VIAL IVP ONE (13:28)
[2023-01-29] MEDS ORDERED: METOCLOPRAMIDE 5 MG/ML 2 ML VIAL IVP ONE (13:29)
[2023-01-29] MEDS ORDERED: KETOROLAC 15 MG/ML 1 ML VIAL ONE (14:44)
[2023-01-29] MEDS ORDERED: fentaNYL (PF) 50 MCG/ML 2 ML AMP ONE (14:44)
[2023-01-29] MEDS ORDERED: PROPOFOL 10 MG/ML 20 ML VIAL IV ONE (14:44)
[2023-01-29] MEDS ORDERED: LIDOCAINE 1% INJ 10MG/ML (20 ML MDV) ONE (14:44)
[2023-01-29] MEDS ORDERED: PHENYLEPHRINE-0.9% NACL SYG 1,000 MCG/10 ML SYRINGE ONE (14:44)
--- NOTE | 2023-01-29 15:19 | P.OP ---
Date of Procedure: 01/29/23 Preoperative Diagnosis: Left Hydronephrosis Postoperative Diagnosis: Same Procedure(s) Performed: Cystoscopy, left ureteral stent change Anesthesia: URIEL Surgeon: Krystian Dunlap Estimated Blood Loss (ml): 0 IV fluids (ml): 500 Pathology: none sent Condition: stable Disposition: PACU Indications for Procedure: The patient is a 67-year-old white female with a history of multiple malignancies, including breast and colon cancer. She is now receiving systemic chemotherapy. She was found earlier this year to have left hydroureteronephrosis. She underwent cystoscopy with left ureteral stent insertion on 07/16/2022. At that time, she was found to have a left distal ureteral stricture, which was opened with balloon dilation. CT scan in August showed interval development of right hydronephrosis. She underwent left ureteral stent change on 10/22/2022. The removed stent was a 26 cm, 7-Ukrainian double-J ureteral stent which was partially calcified. A right retrograde pyelogram showed no evidence of right hydronephrosis. Operative Findings: Successful left ureteral stent change. The removed stent was partially calcified. Description of Procedure: The patient was taken to the operating room and placed in the dorsolithotomy position, with legs supported in Willie stirrups. The external genitalia was prepped and draped sterilely. The 30 lens was used to introduce the 22-Ukrainian Stortz cystoscopic sheath through the urethra and into the bladder under direct vision. The bladder was examined in its entirety. No abnormalities were seen. Grasping forceps were used to grasp the distal end of the left ureteral stent, which was removed along with the cystoscope. A 0.035 inch Glidewire was passed through the stent. However, the distal coil of the stent was occluded. The straight portion of the stent was cut, and it was then possible to pass the Glidewire through the stent and up to the left renal pelvis, were coiled. The Glidewire was then backloaded into the cystoscope, which was replaced into the bladder. A 26 cm, 7-Ukrainian double-J ureteral stent was placed over the wire. Proper stent positioning was verified fluoroscopically and endoscopically. The bladder was emptied and the cystoscope removed. The patient tolerated the procedure well was taken to the recovery room in stable condition.
[2023-01-29 15:40] LABS: Glucose,Whole Blood 92 mg/dL (70-110)
[2023-01-29 16:24] VITALS: BP 117/66; PULSE 73; RESP 18
--- NOTE | 2023-01-29 16:32 | FL ---
Intraoperative/procedural fluoroscopic services were provided. Total fluoroscopy time is 2 seconds se conds with a total of 6 submitted images to PACS. Please see the operative/procedural note for furthe r details. DAP: 113.47 mGym2 Gycm2
== END 2023-01-29 16:45 | disposition home or self-care (01) ==
LOC: OR 12:39
PROVIDERS: ATTEND Urology
DX: N13.1 Hydronephrosis with ureteral stricture, not elsewhere classified (principal); I10 Essential (primary) hypertension; Z79.52 Long term (current) use of systemic steroids; Z85.038 Personal history of other malignant neoplasm of large intestine; Z85.3 Personal history of malignant neoplasm of breast; Z87.891 Personal history of nicotine dependence
CPT/HCPCS: 52332; C2625; C1769; J2250; J2765; J1720; J0690; J2405; J2001; J3010; J3490; J1885; J2704; J2371

== ENCOUNTER → 2023-04-13 | Outpatient (CLI) | payer MEDICARE, BC ==
[2023-04-13 10:31] LABS: African American GFR (CKD) >90 (>60 ml/min/1.73 sqM); Blood Urea Nitrogen 21 mg/dL (7-17); Non-African American GFR(CKD) 79 (>60 ml/min/1.73 sqM)
--- NOTE | 2023-04-13 12:24 | CT ---
EXAMINATION TYPE: CT ChestAbdPelvis w con DATE OF EXAM: 04/13/2023 COMPARISON: 01/22/2023 and 11/18/2022 HISTORY: 67-year-old female C18.2, colon, ovarian, lung ca f/u TECHNIQUE: Contiguous axial scanning of the chest, abdomen, and pelvis performed with IV Contrast, pa tient injected with 100 mL of Isovue 300. Coronal/sagittal reconstructions performed. CT DLP: 1548.7 mGycm Automated exposure control for dose reduction was used. FINDINGS: CHEST: Postsurgical changes right breast with slight interval increase and diffuse skin and trabecular thick ening, probably radiation therapy change. Heart upper limits of normal in size without pericardial effusion. Mild proximal LAD coronary artery calcifications. No thoracic adenopathy by CT size criteria. Focal band like opacities at the bilateral lower lobes appear relatively unchanged compared to 023 but improved from 11/18/2022. Underlying moderate emphysematous change. No pleural effusion. ABDOMEN: No focal liver lesion or biliary ductal dilatation. Portal venous system is patent. Cholecystectomy c lips. Adrenal glands, right kidney, spleen, and pancreas within normal limits. A small 1 cm cortical cyst medial left kidney. Left-sided ureteral stent remains in place. Symmetric uptake and excretion of contrast from both kidneys. Some focal soft tissue haziness within the left and mid anterior abdominal mesentery is showing ongoi ng gradual improvement. No dilated small bowel, free fluid, or free air. No mesenteric or retroperitoneal lymphadenopathy. Oral contrast progressed to the rectum. Proximal to mid sigmoid diverticulosis. No pericolonic inflam matory change. There does appear to be some nodular mural thickening along the mid sigmoid colon, refer to axial elham ge 106. This could be secondary to some internal adherent stool material. Pelvis: Bladder is collapsed. Distal loop of the left ureteral stent is in the bladder lumen. Uterus surgical ly absent. Neither ovary is visualized. Pelvic phleboliths. No abnormal fluid collection in the pelvi s or pelvic lymphadenopathy. Bones: Mild degenerative change of the hips. Zfgi-rv-[id number] degenerative disc disease and facet arthropath y L5-S1. No osseous destructive process. IMPRESSION: 1. POSTSURGICAL AND POSTTREATMENT CHANGES LEFT BREAST. 2. CHRONIC APPEARING BANDLIKE OPACITIES IN THE LOWER LUNGS LIKELY REPRESENTING LARGE AREAS OF SCARRIN G OR POST THERAPY CHANGE, SIMILAR COMPARED TO 01/22/2023. BACKGROUND COPD WITH MODERATE EMPHYSEMA. 3. STATUS POST HYSTERECTOMY AND BILATERAL SALPINGO-OOPHORECTOMY. LEFT URETERAL STENT IN PLACE. 4. SOME MURAL BASED NODULARITY ALONG THE MID SIGMOID COLON MAY RELATE TO ADHERENT STOOL MATERIAL. ATT ENTION ON FOLLOW-UP TO EXCLUDE EARLY RECURRENCE WITH SEROSAL DISEASE.
== END | disposition home or self-care (01) ==
LOC: RADPROMAIN 09:33
PROVIDERS: ATTEND Internal Medicine Hematology & Oncology
DX: C18.2 Malignant neoplasm of ascending colon (principal); J44.9 Chronic obstructive pulmonary disease, unspecified; J43.9 Emphysema, unspecified; K63.89 Other specified diseases of intestine; R91.8 Other nonspecific abnormal finding of lung field; D47.2 Monoclonal gammopathy; D05.12 Intraductal carcinoma in situ of left breast; R91.1 Solitary pulmonary nodule; Z90.722 Acquired absence of ovaries, bilateral; Z90.710 Acquired absence of both cervix and uterus; Z96.0 Presence of urogenital implants; Z98.890 Other specified postprocedural states
CPT/HCPCS: 82565; 84520; 71260; 74177; 36415; Q9967

== ENCOUNTER 2023-04-23 11:07 | Emergency (ER) | payer MEDICARE, BC ==
[2023-04-23 11:21] VITALS: RESP 18
--- NOTE | 2023-04-23 11:28 | ED ---
Fall HPI - General Chief Complaint: Fall Stated Complaint: Fall,Hit Head-Facial Lac Time Seen by Provider: 04/23/23 11:25 Source: patient, RN notes reviewed Mode of arrival: ambulatory Limitations: no limitations - History of Present Illness Initial Comments: Patient is a 67-year-old female presented to the ER with a chief complaint of a fall. Patient states she tripped on a crack in the concrete landing on her face. She does report that she hit her forehead on the concrete as well. Denies loss of consciousness or blood thinner use. Denies any dizziness, nausea, vomiting after event. Patient did report a nosebleed. She states her nose did hit the ground and it started to bleed. Bleeding controlled at this time. She states she also fell on her bilateral knees and hands. Denies any current pain. Tetanus is not up-to-date. - Related Data Home Medications Medication Instructions Recorded Confirmed Multivitamins, Thera [Multivitamin 1 tab PO DAILY 07/10/17 01/29/23 (formulary)] Tamoxifen Citrate 20 mg PO DAILY 12/16/17 01/29/23 Cholecalciferol [Vitamin D3 (25 50 mcg PO DAILY 05/02/20 01/29/23 Mcg = 1000 Iu)] Cyanocobalamin [Vitamin B-12] 500 mcg PO DAILY 05/02/20 01/29/23 [place]-3 Fatty Acids/Fish Oil [Fish 1 cap PO DAILY 03/05/21 01/29/23 Oil 1,000 mg Softgel] Ascorbic Acid [Vitamin C] 1,000 mg PO DAILY 06/05/22 01/29/23 Cetuximab [Erbitux] 1 dose IV MO 09/04/22 01/29/23 Diphenoxylate HCl/Atropine 2 tab PO QID PRN 09/04/22 01/29/23 [Lomotil 2.5-0.025 mg Tablet] Encorafenib [Braftovi] 300 mg PO HS 09/04/22 01/29/23 Prochlorperazine Maleate 10 mg PO Q6H PRN 09/04/22 01/29/23 Scopolamine [Scopolamine 1 MG/72 1 patch TRANSDERM Q72H PRN 09/04/22 01/29/23 HR patch] Valsartan 320 mg PO DAILY 09/04/22 01/29/23 DULoxetine HCL [Cymbalta] 20 mg PO DAILY 01/27/23 01/29/23 Metoprolol Succinate [Metoprolol 25 mg PO DAILY 01/27/23 01/29/23 Succinate ER] Nf-Magnesium/Calcium Combo 1 tab PO DAILY 01/27/23 01/29/23 predniSONE [Deltasone] 20 mg PO DAILY 01/27/23 01/29/23 Allergies Allergy/AdvReac Type Severity Reaction Status Date / Time No Known Allergies Allergy Verified 04/23/23 11:11 Review of Systems ROS Statement: Those systems with pertinent positive or pertinent negative responses have been documented in the HPI. ROS Other: All systems not noted in ROS Statement are negative. Past Medical History Past Medical History: Cancer, GERD/Reflux, Hypertension Additional Past Medical History / Comment(s): LT BREAST CANCER, colon cancer stage II-METS TO OVARIES-with chemo. last chemo june 2020. METS to both lungs History of Any Multi-Drug Resistant Organisms: None Reported Past Surgical History: Bowel Resection, Breast Surgery, Cholecystectomy, Hysterectomy Additional Past Surgical History / Comment(s): LT BREAST LUMPECTOMY-RADIATION, COLONOSCOPY, HAS PORT A CATH Past Anesthesia/Blood Transfusion Reactions: No Reported Reaction Past Psychological History: No Psychological Hx Reported Smoking Status: Former smoker Past Alcohol Use History: Occasional Past Drug Use History: None Reported - Past Family History Mother Family Medical History: COPD, Dementia Father Family Medical History: AFIB, Cancer Additional Family Medical History / Comment(s): Lung cancer. Sister(s) Family Medical History: Cancer Additional Family Medical History / Comment(s): VOCAL CORD CANCER General Exam Limitations: no limitations General appearance: alert, in no apparent distress Head exam: Present: other (1 inch hematoma to right forehead with abrasion) Eye exam: Present: normal appearance, PERRL, EOMI. Absent: scleral icterus, conjunctival injection, periorbital swelling Pupils: Present: normal accommodation ENT exam: Present: normal exam, normal oropharynx, mucous membranes moist, other (Edema and ecchymosis to nasal bone. Multiple abrasions noted. No evidence of septal hematoma. Bleeding controlled at this time. No maxillary or frontal sinus tenderness. Zygomatic arch without tenderness) Neck exam: Present: normal inspection. Absent: tenderness, meningismus, lymphadenopathy Respiratory exam: Present: normal lung sounds bilaterally. Absent: respiratory distress, wheezes, rales, rhonchi, stridor Cardiovascular Exam: Present: regular rate, normal rhythm, normal heart sounds. Absent: systolic murmur, diastolic murmur, rubs, gallop, clicks Extremities exam: Present: normal inspection, full ROM, normal capillary refill. Absent: tenderness, pedal edema, joint swelling, calf tenderness Neurological exam: Present: alert, oriented X3, CN II-XII intact Psychiatric exam: Present: normal affect, normal mood Skin exam: Present: warm, dry, intact, normal color. Absent: rash Course Vital Signs 04/23/23 04/23/23 11:08 13:30 Temperature 97.5 F L 97.7 F Pulse Rate 78 80 Respiratory 18 18 Rate Blood Pressure 168/96 151/84 O2 Sat by Pulse 97 98 Oximetry Medical Decision Making - Medical Decision Making Was pt. sent in by a medical professional or institution (, PA, SENIOR SOFTWARE TESTER, urgent care, hospital, or skilled nursing...) When possible be specific @ -No Did you speak to anyone other than the patient for history (EMS, parent, family, police, friend...)? What history was obtained from this source @ -No Did you review nursing and triage notes (agree or disagree)? Why? @ -I reviewed and agree with nursing and triage notes Were old charts reviewed (outside hosp., previous admission, EMS record, old EKG, old radiological studies, urgent care reports/EKG's, skilled nursing records)? Report findings @ -No old charts were reviewed Differential Diagnosis (chest pain, altered mental status, abdominal pain women, abdominal pain men, vaginal bleeding, weakness, fever, dyspnea, syncope, headache, dizziness, GI bleed, back pain, seizure, CVA, palpatations, mental health, musculoskeletal)? @ -Fracture, dislocation, contusion, hematoma, intracranial hemorrhage, concussion, abrasion, laceration this list does not like to be all-inclusive EKG interpreted by me (3pts min.). @ -None X-rays interpreted by me (1pt min.). @ -Nasal bone x-ray interpreted by me shows a tiny linear lucency near the distal aspect. Could represent a nondisplaced fractures. CT interpreted by me (1pt min.). @ -None done U/S interpreted by me (1pt. min.). @ -None done What testing was considered but not performed or refused? (CT, X-rays, U/S, labs)? Why? @ -CT brain considered but not performed as patient refused. What meds were considered but not given or refused? Why? @ -None Did you discuss the management of the patient with other professionals (professionals i.e. , PA, SENIOR SOFTWARE TESTER, lab, RT, psych nurse, nursing home social worker, intake coordinator, teacher, customs and border protection officer, window caser)? Give summary @ -No Was smoking cessation discussed for >3mins.? @ -No Was critical care preformed (if so, how long)? @ -No Were there social determinants of health that impacted care today? How? (Homelessness, low income, unemployed, alcoholism, drug addiction, tr ansportation, low edu. Level, literacy, decrease access to med. care, custodial, rehab)? @ -No Was there de-escalation of care discussed even if they declined (Discuss DNR or withdrawal of care, Hospice)? DNR status @ -No What co-morbidities impacted this encounter? (DM, HTN, Smoking, COPD, CAD, Cancer, CVA, ARF, Chemo, Hep., AIDS, mental health diagnosis, sleep apnea, morbid obesity)? @ -None Was patient admitted / discharged? Hospital course, mention meds given and route, prescriptions, significant lab abnormalities, going to OR and other pertinent info. @ -Discharge. Patient is a 67-year-old female presented to ER with a chief complaint of a fall. History physical exam completed. Vitals stable. Patient no signs of acute distress and nontoxic-appearing. Hematoma to right forehead with multiple abrasions. Tenderness to nasal bridge with mild swelling and abrasions. No active nosebleed or evidence of septal hematoma. Tetanus updated. X-ray of nasal bones significant for nondisplaced fracture. Patient received Tylenol for pain control. I advised patient to follow-up with ENT. Referral given. Patient discharged stable condition with follow-up to be ENT/PCP. Return parameters discussed. Patient expressed understanding and agreement with care plan. Case discussed with Dr. Jung, ED attending. Undiagnosed new problem with uncertain prognosis? @ -No Drug Therapy requiring intensive monitoring for toxicity (Heparin, Nitro, Insulin, Cardizem)? @ -No Were any procedures done? @ -No Diagnosis/symptom? @ -Hematoma/nasal bone fracture Acute, or Chronic, or Acute on Chronic? @ -Acute Uncomplicated (without systemic symptoms) or Complicated (systemic symptoms)? @ -Uncomplicated Side effects of treatment? @ -No Exacerbation, Progression, or Severe Exacerbation? @ -No Poses a threat to life or bodily function? How? (Chest pain, [place], [place], pneumonia, PE, COPD, DKA, ARF, appy, cholecystitis, CVA, Diverticulitis, Homicidal, Suicidal, threat to staff... and all critical care pts) @ -No - Radiology Data Radiology results: report reviewed, image reviewed Disposition Clinical Impression: Nasal bone fracture, Hematoma Disposition: HOME SELF-CARE Condition: Stable Instructions (If sedation given, give patient instructions): Fall Prevention for Older Adults (ED) Additional Instructions: Please follow-up with ENT. You may take [id number]-cvyddde Tylenol for pain control. Return to the ER for any new or worsening symptoms. Is patient prescribed a controlled substance at d/c from ED?: No Referrals: Josefa Asif MD [Primary Care Provider] - 1-2 days Luciano Lozano DO [Doctor of Osteopathic Medicine] - 1-2 days Time of Disposition: 13:00
[2023-04-23] MEDS: DIPH,PERTUS(ACELL)TETVAC-LF 0.5 ML VIAL IM ONE (12:24)
--- NOTE | 2023-04-23 12:46 | XR ---
Three-view nasal bones. DATE: 04/23/2023. COMPARISON: None available. CLINICAL HISTORY: Fall. IMPRESSION: There is a tiny linear lucency near the distal aspect of the nasal bone which could represent a nondi splaced fracture. No discrete fractures are seen. There is no significant overlying soft tissue swelling.
[2023-04-23] MEDS: ACETAMINOPHEN TAB 325 MG TAB PO STA (13:28)
[2023-04-23 13:59] VITALS: BP 151/84; PULSE 80; TEMP 97.7
== END 2023-04-23 13:31 | disposition home or self-care (01) ==
LOC: EC 11:07
DX: S02.2XXA Fracture of nasal bones, initial encounter for closed fracture (principal); S00.83XA Contusion of other part of head, initial encounter; I10 Essential (primary) hypertension; Z79.899 Other long term (current) drug therapy; Z87.891 Personal history of nicotine dependence; Z90.49 Acquired absence of other specified parts of digestive tract; Z23 Encounter for immunization; W01.198A Fall on same level from slipping, tripping and stumbling with subsequent striking against other object, initial encounter
CPT/HCPCS: 70160; 90471; 90715; 99284

== ENCOUNTER → 2023-04-23 | Outpatient (CLI) | payer MEDICARE, BC ==
[2023-04-23 18:17] LABS: Basophils % (A) 0.8 %; Eosinophils # (A) 0.08 X 10*3/uL (0.04-0.35); Eosinophils % (A) 0.7 %; HCT 38.5 % (37.2-46.3); HGB 12.2 g/dL (12.0-15.0); Lymphocytes # (A) 1.22 X 10*3/uL (0.90-5.00); Lymphocytes % (A) 10.2 %; MCH 29.7 pg (27.0-32.0); MCHC 31.7 g/dL (32.0-37.0); MCV 93.7 FL (80.0-97.0); Mean Platelet Volume 10.4 FL (9.5-12.2); Monocytes # (A) 0.72 X 10*3/uL (0.20-1.00); NRBC Per 100 WBC 0 X 10*3/uL (0.00-0.01); Neutrophils # (A) 9.85 X 10*3/uL (1.80-7.70); Platelet Count 272 X 10*3/uL (140-440); RBC 4.11 X 10*6/uL (4.10-5.20); RDW 13.7 % (11.5-14.5); WBC 12.01 X 10*3/uL (4.50-10.00)
[2023-04-23 18:28] LABS: BUN/Creat Ratio 24.11 Ratio (12.00-20.00); Blood Urea Nitrogen 21.7 mg/dL (9.0-27.0); Calcium 9.7 mg/dL (8.7-10.3); Carbon Dioxide 22.5 mmol/L (21.6-31.8); Chloride 108 mmol/L (96-109); Glucose 113 mg/dL (70-110); Potassium 4.6 mmol/L (3.5-5.5); Sodium 142 mmol/L (135-145)
== END | disposition home or self-care (01) ==
LOC: LABPAT 13:34
PROVIDERS: ATTEND Urology
DX: Z01.812 Encounter for preprocedural laboratory examination (principal); N13.1 Hydronephrosis with ureteral stricture, not elsewhere classified
CPT/HCPCS: 36415; 80048; 85025

== ENCOUNTER 2023-04-30 06:17 | Day surgery (SDC) | payer MEDICARE, BC ==
--- NOTE | 2023-04-28 06:18 | P.GSHP ---
History of Present Illness H&P Date: 04/27/23 Chief Complaint: Left Hydronephrosis The patient is a 67-year-old white female with a history of multiple malignancies, including breast and colon cancer. She is now receiving systemic chemotherapy. She was found earlier this year to have left hydroureteronephrosis. She underwent cystoscopy with left ureteral stent insertion on 07/16/2022. At that time, she was found to have a left distal ureteral stricture, which was opened with balloon dilation. CT scan in August margi thu interval development of right hydronephrosis. A right retrograde pyelogram at that time showed no evidence of right hydronephrosis. She underwent left ureteral stent change most recently on 01/29/2023. The removed stent was a 26 cm, 7-Bulgarian double-J ureteral stent which was partially calcified. - Constitutional Constitutional: Denies chills, Denies fever - Genitourinary (Female) Genitourinary: Reports flank pain, Reports hematuria, Reports urinary frequency, Denies dysuria Past Medical History Past Medical History: Cancer, GERD/Reflux, Hypertension Additional Past Medical History / Comment(s): left hydronephrosis-"not draining well-poss r/t chemo or scar tissue", LT BREAST CANCER-August 2017-tx w/ radiation, Dec 2017colon cancer stage II-METS TO OVARIES-with chemo. last chemo june 2020. METS to both lungs-June 2022-curret tx w/ chemo every TU History of Any Multi-Drug Resistant Organisms: None Reported Past Surgical History: Bowel Resection, Breast Surgery, Cholecystectomy, Hysterectomy Additional Past Surgical History / Comment(s): currently left ureter stent, LT BREAST LUMPECTOMY-RADIATION, COLONOSCOPY, HAS rt PORT A CATH Past Anesthesia/Blood Transfusion Reactions: No Reported Reaction Additional Past Anesthesia/Blood Transfusion Reaction / Comment(s): no hx problems with prior blood transfusion Smoking Status: Former smoker - Past Family History Mother Family Medical History: COPD, Dementia Father Family Medical History: AFIB, Cancer Additional Family Medical History / Comment(s): Lung cancer. Sister(s) Family Medical History: Cancer Additional Family Medical History / Comment(s): VOCAL CORD CANCER Medications and Allergies Home Medications Medication Instructions Recorded Confirmed Type Multivitamins, Thera [Multivitamin 1 tab PO DAILY 07/10/17 04/24/23 History (formulary)] Tamoxifen Citrate 20 mg PO DAILY 12/16/17 04/24/23 History Cholecalciferol [Vitamin D3 (25 50 mcg PO DAILY 05/02/20 04/24/23 History Mcg = 1000 Iu)] Cyanocobalamin [Vitamin B-12] 500 mcg PO DAILY 05/02/20 04/24/23 History [place]-3 Fatty Acids/Fish Oil [Fish 1 cap PO DAILY 03/05/21 04/24/23 History Oil 1,000 mg Softgel] Ascorbic Acid [Vitamin C] 1,000 mg PO DAILY 06/05/22 04/24/23 History Cetuximab [Erbitux] 1 dose IV TU 09/04/22 04/24/23 History Diphenoxylate HCl/Atropine 2 tab PO QID PRN 09/04/22 04/24/23 History [Lomotil 2.5-0.025 mg Tablet] Encorafenib [Braftovi] 300 mg PO HS 09/04/22 04/24/23 History Prochlorperazine Maleate 10 mg PO Q6H PRN 09/04/22 04/24/23 History Scopolamine [Scopolamine 1 MG/72 1 patch TRANSDERM Q72H PRN 09/04/22 04/24/23 History HR patch] Valsartan 320 mg PO QAM 09/04/22 04/24/23 History DULoxetine HCL [Cymbalta] 30 mg PO BID 01/27/23 04/24/23 History Metoprolol Succinate [Metoprolol 150 mg PO QAM 01/27/23 04/24/23 History Succinate ER] Magnesium 400 mg PO DAILY 04/24/23 04/24/23 History Allergies Allergy/AdvReac Type Severity Reaction Status Date / Time No Known Allergies Allergy Verified 04/24/23 12:04 Surgical - Exam - General well developed, well nourished, no distress - Respiratory normal respiratory effort - Abdomen Abdomen: soft, non tender, no guarding, no rigid, no rebound - Genitourinary normal external genitalia - Psychiatric oriented to time, oriented to person, oriented to place, speech is normal, memory intact Assessment and Plan (1) Hydronephrosis with ureteral stricture, not elsewhere classified Status: Acute Code(s): N13.1 - HYDRONEPHROSIS W URETERAL STRICTURE, NEC SNOMED Code(s): 91173677 Plan: Cystoscopy, left ureteral stent change. The procedure has been reviewed in detail with the patient. She is aware of potential risks, which include anesthesia, infection, loss of ureteral access, and ureteral injury.
[2023-04-30] MEDS: LACTATED RINGERS 1,000 ML IV SCH (06:41)
[2023-04-30] MEDS ORDERED: HYDROmorphone 0.5 MG/0.5 ML SYRINGE IVP PRN (07:00)
[2023-04-30] MEDS ORDERED: MIDAZOLAM 2 MG/2 ML VIAL IV PRN (07:00)
[2023-04-30] MEDS: LIDOCAINE 1% (10MG/ML) FOR IV START INTRADERMA PRN (07:00)
[2023-04-30] MEDS: DEXAMETHASONE SOD PHOSPHATE 4 MG/ML 1 ML VIAL IV ONE (07:09)
[2023-04-30] MEDS: ONDANSETRON 4 MG/2 ML VIAL IVP ONE (07:09)
[2023-04-30] MEDS ORDERED: MIDAZOLAM 2 MG/2 ML VIAL ONE (07:26)
[2023-04-30] MEDS ORDERED: LIDOCAINE 1% INJ 10MG/ML (20 ML MDV) ONE (07:26)
[2023-04-30] MEDS ORDERED: fentaNYL (PF) 50 MCG/ML 2 ML AMP ONE (07:26)
[2023-04-30] MEDS ORDERED: PROPOFOL 10 MG/ML 20 ML VIAL IV ONE (07:26)
[2023-04-30 07:40] VITALS: TEMP 97.7
[2023-04-30 08:16] VITALS: PULSE 76
--- NOTE | 2023-04-30 08:32 | P.OP ---
Date of Procedure: 04/30/23 Preoperative Diagnosis: Left hydronephrosis secondary to left ureteral stricture Postoperative Diagnosis: Same Procedure(s) Performed: Cystoscopy, left ureteral stent change Anesthesia: MAC Surgeon: Krystian Dunlap Estimated Blood Loss (ml): 0 IV fluids (ml): 100 Pathology: none sent Condition: stable Disposition: PACU Indications for Procedure: The patient is a 67-year-old white female with a history of multiple malignancies, including breast and colon cancer. She is now receiving systemic chemotherapy. She was found earlier this year to have left hydroureteronephrosis. She underwent cystoscopy with left ureteral stent insertion on 07/16/2022. At that time, she was found to have a left distal ureteral stricture, which was opened with balloon dilation. CT scan in August showed interval development of right hydronephrosis. A right retrograde p yelogram at that time showed no evidence of right hydronephrosis. She underwent left ureteral stent change most recently on 01/29/2023. The removed stent was a 26 cm, 7-Italian double-J ureteral stent which was partially calcified. Operative Findings: Successful left ureteral stent change Description of Procedure: The patient was taken to the operating room and placed in the dorsolithotomy position, with legs supported in Willie stirrups. The external genitalia was prepped and draped sterilely. The 30 lens was used to introduce the 22-Italian Stortz cystoscopic sheath through the urethra and into the bladder under direct vision. The bladder was examined in its entirety. No abnormalities were seen. Grasping forceps were used to grasp the distal end of the left ureteral stent, which was removed along with the cystoscope. A 0.035 inch Glidewire was passed through the stent and up to the left renal pelvis. The stent was removed, and the Glidewire was backloaded into the cystoscope, which was replaced into the bladder. A 26 cm, 7-Italian double-J silicone ureteral stent was placed over the wire. Proper stent positioning was verified fluoroscopically and endoscopically. The bladder was emptied and the cystoscope removed. The patient tolerated the procedure well was taken to the recovery room in stable condition.
[2023-04-30 08:51] VITALS: BP 126/73; RESP 18
--- NOTE | 2023-04-30 09:55 | FL ---
EXAMINATION TYPE: FL guidance operating room Intraoperative/procedural fluoroscopic services were pro vided. Total fluoroscopy time is 10 seconds with a total of 2 submitted images to PACS. Please see th e operative/procedural note for further details. DAP: [id number] mGym2
== END 2023-04-30 08:54 | disposition home or self-care (01) ==
LOC: OR 06:17
PROVIDERS: ATTEND Urology
DX: N13.1 Hydronephrosis with ureteral stricture, not elsewhere classified (principal); K21.9 Gastro-esophageal reflux disease without esophagitis; I10 Essential (primary) hypertension; Z85.038 Personal history of other malignant neoplasm of large intestine; Z85.3 Personal history of malignant neoplasm of breast; Z87.891 Personal history of nicotine dependence; Z90.49 Acquired absence of other specified parts of digestive tract; Z79.899 Other long term (current) drug therapy
CPT/HCPCS: 52332; C1769; J2250; J1100; J2405; J2001; J3010; J2704

== ENCOUNTER 2023-05-27 09:40 | Day surgery (SDC) | payer MEDICARE, BC ==
[2023-05-26 09:07] VITALS: BMI 30.7
[2023-05-27] MEDS: LACTATED RINGERS 1,000 ML IV SCH (10:17)
[2023-05-27] MEDS ORDERED: PROPOFOL 10 MG/ML 20 ML VIAL IV ONE (10:53)
[2023-05-27 10:54] VITALS: TEMP 97
--- NOTE | 2023-05-27 11:21 | P.PCN ---
Date of Procedure: 05/27/23 Procedure(s) Performed: BRIEF HISTORY: Patient is a 67-year-old pleasant White female scheduled for an elective colonoscopy as a part of Surveillance of prior history of colon cancer diagnosed in 2018. She underwent right hemicolectomy.She had CT of abdomen and pelvis done in March of this year which revealed a mural nodularity along the mid Sigmoid colon and hence scheduled for a repeat surveillance colonoscopy today. PROCEDURE PERFORMED: Colonoscopy With biopsy followed by tattooing with Nicole in k. PREOPERATIVE DIAGNOSIS: History of colon cancer and abnormal CAT scan of abdomen and pelvis. IV sedation per Anesthesia. PROCEDURE: After informed consent was obtained, the patient, was brought into the endoscopy unit. IV sedation was administered by Anesthesia under continuous monitoring. Digital rectal examination was normal. Initially the Olympus CF-160 flexible video colonoscope was then inserted in the rectum, gradually advanced into the right colon with the [place] anastomosis was visualized and appeared normal. The prep was fair.Mucosa of the, transverse colon, descending colo n,Appeared normal. In the sigmoid: At 28 cm from the verge there was slightly raised polypoid area with normal overlying mucosa measuring about 2 cm in size And multiple biopsies were done from this area followed by tattooing with Nicole ink.sigmoid colon, and rectum appeared normal. Retroflexion was performed in the rectum and no lesions were seen. The patient tolerated the procedure well. IMPRESSION: 2 cm smooth slightly raised area in the distal sigmoid colon with normal- appearing mucosa at 28 cm from the anal verge status post multiple biopsies followed by tattooing with Nicole ink. Rest of the colon appeared normal RECOMMENDATIONS: Findings of this examination were discussed with the patient As well as a family. She was advised to follow with the biopsy results and she'll be seen in office in one week..
[2023-05-27 11:39] VITALS: BP 113/56; PULSE 81; RESP 14
== END 2023-05-27 12:00 | disposition home or self-care (01) ==
LOC: ORWHC2ENDO 09:40
PROVIDERS: ATTEND Internal Medicine Gastroenterology
DX: R93.5 Abnormal findings on diagnostic imaging of other abdominal regions, including retroperitoneum (principal); K21.9 Gastro-esophageal reflux disease without esophagitis; F17.200 Nicotine dependence, unspecified, uncomplicated; Z85.038 Personal history of other malignant neoplasm of large intestine; Z85.850 Personal history of malignant neoplasm of thyroid; Z85.3 Personal history of malignant neoplasm of breast; Z79.899 Other long term (current) drug therapy; Z98.890 Other specified postprocedural states
CPT/HCPCS: 88305; 45380; 45381; J2704

== ENCOUNTER → 2023-05-28 | Outpatient (CLI) | payer MEDICARE, BC ==
--- NOTE | 2023-05-28 15:36 | XR ---
EXAMINATION TYPE: XR cervical spine comp DATE OF EXAM: 05/28/2023 COMPARISON: None HISTORY: Dorsalgia TECHNIQUE: 5 view cervical spine FINDINGS: Anterior vertebral body spurring is present C4-C6. Mild disc space narrowing is present C5- 6 C6-7. No spinal canal stenosis present. Posterior spinal lamellar line is intact. Some mild foramin al narrowing is present C6-7 on the left. IMPRESSION: 1. Mild left C6-7 foraminal narrowing.
--- NOTE | 2023-05-28 15:36 | XR ---
EXAMINATION TYPE: XR thoracic spine 2V DATE OF EXAM: 05/28/2023 COMPARISON: None HISTORY: Dorsalis Fili TECHNIQUE: 2 view thoracic spine FINDINGS: Vertebral body heights are preserved. Disc heights appear preserved. There are 12 thoracic type vertebral bodies. Pedicles are intact. IMPRESSION: 1. No acute osseous abnormality thoracic spine
== END | disposition home or self-care (01) ==
LOC: RADXRMAIN 13:59
PROVIDERS: ATTEND Family Medicine
DX: M99.71 Connective tissue and disc stenosis of intervertebral foramina of cervical region (principal); M54.6 Pain in thoracic spine
CPT/HCPCS: 72050; 72070

== ENCOUNTER → 2023-07-03 | Outpatient (CLI) | payer MEDICARE, BC ==
--- NOTE | 2023-07-03 13:46 | USB ---
Reason for Exam: Clinical finding. Patient History: Menarche at age 15. First Full-Term at age 24. Left ovary removed at age 64. Right ovary removed at age 64. Hysterectomy at age 64. Postmenopausal. Breast cancer, left, age 62. Colorectal cancer, age 62. Ovarian cancer. Other cancer. Previous chest radiation therapy at age 62. Previous chemotherapy. Patient used Hormonal Contraceptives for 1 year. 08/12/2017, Lumpectomy on the Left side. 08/12/2017, Malignant Core Biopsy on the left side. 07/16/2017, High risk Core Biopsy on the right side. 07/16/2017, High risk Core Biopsy on the left side. 2018, Radiation Therapy on the left side. Paternal grandmother had breast cancer, age 50. Paternal aunt had breast cancer, age 50. Prior Study Comparison: 10/25/2021 Bilateral MG 3D diag mammo w/cad [facility], [facility]. 02/25/2022 Right MG 3D diag mammo w/cad RT, [facility]. 08/21/2022 Bilateral MG 3D diag mammo w/cad [facility], [facility]. Findings: The whole breast of the left breast, the axilla of the left breast and the retroareolar of the left breast were scanned. A complete US of all four quadrants of the breast common axilla, and retro-areolar region were reviewed. Areas of skin thickening and some trabecular thickening in keeping with postradiation therapy change. Focal shadowing area extending to the skin surface at the 9:00 position corresponds to the patient's scar. Otherwise, no other solid or cystic lesion or axillary lymphadenopathy. Overall Assessment: Incomplete: need additional imaging evaluation, BI-RAD 0 Management: Diagnostic Mammogram of the left breast. Electronically signed and approved by: Mora Yoder M.D. Radiologist
--- NOTE | 2023-07-03 20:29 | MM ---
Reason for Exam: Clinical finding. Last screening mammogram was performed 10 month(s) ago. Indicated Problems: Pain of the left side (Global) for 3 Month(s) : lt breast disfigured from radiation/lumpectomy at age 53. Patient History: Menarche at age 15. First Full-Term at age 24. Left ovary removed at age 64. Right ovary removed at age 64. Hysterectomy at age 64. Postmenopausal. Breast cancer, left, age 62. Colorectal cancer, age 62. Ovarian cancer. Other cancer. Previous chest radiation therapy at age 62. Previous chemotherapy. Patient used Hormonal Contraceptives for 1 year. 08/12/2017, Lumpectomy on the Left side. 08/12/2017, Malignant Core Biopsy on the left side. 07/16/2017, High risk Core Biopsy on the right side. 07/16/2017, High risk Core Biopsy on the left side. 2018, Radiation Therapy on the left side. Paternal grandmother had breast cancer, age 50. Paternal aunt had breast cancer, age 50. Prior Study Comparison: 10/25/2021 Bilateral MG 3D diag mammo w/cad [facility]ER[facility], [facility]. 02/25/2022 Right MG 3D diag mammo w/cad [facility], [facility]. 08/21/2022 Bilateral MG 3D diag mammo w/cad [facility], [facility]. Tissue Density: Left: The breasts are heterogeneously dense, which may obscure small masses. Findings: Analyzed By CAD. Redemonstrated are postsurgical and posttreatment changes left breast. The far posterior medial lumpectomy site shows no significant change. No suspicious microcalcification or other discrete abnormality is seen. Overall Assessment: Probably benign, BI-RAD 3 Management: Diagnostic Mammogram of both breasts in 3 months. In time for the patient's annual exam. Results were given to the patient verbally at the time of exam. Patient should continue monthly self-breast exams. A clinical breast exam by your physician is recommended on an annual basis. This exam should not preclude additional follow-up of suspicious palpable abnormalities. Electronically signed and approved by: Mora Yoder M.D. Radiologist
== END | disposition home or self-care (01) ==
LOC: RADUSWWP 12:47
PROVIDERS: ATTEND Internal Medicine Geriatric Medicine
DX: R92.332 Mammographic heterogeneous density, left breast (principal); N64.4 Mastodynia; Z78.0 Asymptomatic menopausal state; Z80.3 Family history of malignant neoplasm of breast
CPT/HCPCS: 77065; 76641; G0279; 77061

== ENCOUNTER → 2023-07-03 | Outpatient (CLI) | payer MEDICARE, BC ==
[2023-07-03 10:42] LABS: African American GFR (CKD) 81 (>60 ml/min/1.73 sqM); Blood Urea Nitrogen 17 mg/dL (7-17); Non-African American GFR(CKD) 70 (>60 ml/min/1.73 sqM)
--- NOTE | 2023-07-03 12:09 | CT ---
EXAMINATION TYPE: CT ChestAbdPelvis w con DATE OF EXAM: 07/03/2023 COMPARISON: 04/13/2023 HISTORY: f/u colon ca CT DLP: 1483.9 mGycm CONTRAST: CT scan of the chest, abdomen and pelvis is performed with Oral Contrast and with IV Contrast, patien t injected with 100 mL of Isovue 300. CT Chest: LUNGS: Stable bandlike areas of increased density within the lower lobes bilaterally as well as the l ingula likely reflect posttreatment change. There is interval development of a small left-sided slive r size pleural effusion. Mild left upper lobe pleural thickening noted as well. The lungs are otherwi se clear. Hyperinflation compatible with COPD. MEDIASTINUM: Thoracic aorta is of normal caliber. The heart is not enlarged. No evidence for media stinal mass or adenopathy. HILAR STRUCTURES: No evidence for mass. No hilar adenopathy is appreciated. OTHER: Posttreatment changes left breast. CONTRAST CT ABDOMEN AND PELVIS FINDINGS: LIVER/GB: Fatty liver. Hepatic steatosis. No space occupying hepatic lesion. Biliary tree is of haylee l caliber. PANCREAS: No inflammation. No distinct mass. SPLEEN: No splenic enlargement. No lesion seen. ADRENALS: No nodule. No thickening. KIDNEYS/BLADDER: Left renal stent is noted to be in place and appears unchanged in overall position. No hydronephrosis. No nephrolithiasis. 1 cm cortical cyst mid pole left kidney. BOWEL: Partial right hemicolectomy changes within the stenosis. Tach. There is no evidence for recurr ent or residual disease. Nodular thickening of the sigmoid colon is not identified with certainty at this time although there is poor opacification of the sigmoid colon. If felt clinically indicated dir ect visualization should be considered. GENITAL ORGANS: Postoperative changes of hysterectomy and bilateral oophorectomy LYMPH NODES: No greater than 1cm abdominal or pelvic lymph nodes are appreciated. AORTA: No significant abnormality. OSSEOUS STRUCTURES: No significant abnormality is seen. OTHER: No significant additional abnormality is seen. IMPRESSION: 1. Bandlike areas of increased density within the bilateral lung bases and lingula likely related to posttreatment change. 2. Sliver size small left-sided pleural effusion has developed in the interval. 3. Hepatic steatosis. 4. No evidence of tumor recurrence or residual disease of the colon. Nodularity of the sigmoid colon is not reproduced at this time however there is less than ideal opacification of the colon. If felt t o be indicated direct visualization should be considered.
== END | disposition home or self-care (01) ==
LOC: RADCTMAIN 09:41
PROVIDERS: ATTEND Internal Medicine Hematology & Oncology
DX: C18.2 Malignant neoplasm of ascending colon (principal); J90 Pleural effusion, not elsewhere classified; K76.0 Fatty (change of) liver, not elsewhere classified; R91.1 Solitary pulmonary nodule; D05.12 Intraductal carcinoma in situ of left breast; D47.2 Monoclonal gammopathy; Z71.3 Dietary counseling and surveillance
CPT/HCPCS: 82565; 84520; 71260; 74177; 36415; Q9967

== ENCOUNTER → 2023-07-10 | Outpatient (CLI) | payer MEDICARE, BC ==
--- NOTE | 2023-07-10 15:48 | P.GSCN ---
History of Present Illness Consult date: 07/10/23 Reason for Consult: mastodynia History of present illness: Dilma is a 68 year old female with a complaint of pain in her left breast. She states this started about 4 weeks ago. She was seen by her primary care Dr. Asif and given an antibiotic and steriod and this resolved. She started walking her arm up the wall but then the breast got inflamed. Her history is significant for the fact that she had bilateral stereotactic core biopsies on 07-16-2017. The right breast was fibrocystic changes. The left breast revealed focal atypical lobular hyperplasia. She subsequently underwent a left breast lumpectomy on 08-12-2017. 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 Additionally there was focal atypical lobular hyperplasia. This was ER/DE positive. She subsequently 36 radiation treatments of the left breast. She is presently taking tamoxifen. She did not have any chemotherapy. The patient was also diagnosed with colon cancer in Fall 2017: that was treated with a colon resection; she had chemotherapy no radiation; no nodes involved it metastasized to the ovaries she had a complete hysterectomy and told colon mets to ovaries/ chemo again She was hospitilized with each of these chemotherapies The colon cancer then spread to her lungs 2022; she had radiation and had a rib fracture. She is now on weekly infusion of erbutix, and daily braftovi. She has had genetic testing which was (-) left breast mammogram and ultrasound Bilateral mammogram 08-21-2022 which was felt to be benign BI-RADS 2 note 06-29-23 Dr. Asif reviewed Caffeine: occasional nicotine: none; stopped 2017 chocolate: weekly BCP: less than 1 year hormones: none Family History: father: lung cancer Hormonal History: menarche: 15 , breast fed; no, age at first : 24 menopause: mid 40's Surgical History: left breast lumpectomy colon resection port placement gallbladder Medical History: metastatic colon cancer Social History: nicotine: as above alcohol: occasional drugs: none Review of Systems - Constitutional Denies fever, Denies weight loss - EENT Eyes: denies blurred vision Ears: deny: decreased hearing, tinnitus Ears, nose, mouth and throat: Denies dysphagia - Breasts bilateral: as per HPI - Cardiovascular Reports shortness of breath - Respiratory Reports as per HPI - Gastrointestinal Reports as per HPI - Genitourinary Genitourinary: Reports as per HPI Menstruation: Reports post hysterectomy - Musculoskeletal Reports myalgias - Integumentary Reports rash - Neurological Denies headaches, Denies syncope - Psychiatric Reports as per HPI - Endocrine Reports fatigue - Hematologic/Lymphatic Reports as per HPI - Allergic/Immunologic Reports as per HPI Past Medical History Past Medical History: Cancer Additional Past Medical History / Comment(s): LT BREAST CANCER, colon cancer stage II-METS TO OVARIES-with chemo. last chemo june 2020. METS to both lungs History of Any Multi-Drug Resistant Organisms: None Reported Past Surgical History: Bowel Resection, Breast Surgery, Cholecystectomy, Hysterectomy Additional Past Surgical History / Comment(s): LT BREAST LUMPECTOMY-RADIATION, COLONOSCOPY, HAS PORT A CATH Past Anesthesia/Blood Transfusion Reactions: No Reported Reaction Additional Past Anesthesia/Blood Transfusion Reaction / Comm: No problems with previous blood transfusion. Past Psychological History: No Psychological Hx Reported Smoking Status: Former smoker Past Alcohol Use History: Occasional Past Drug Use History: None Reported - Past Family History Mother Family Medical History: COPD, Dementia Father Family Medical History: AFIB, Cancer Additional Family Medical History / Comment(s): Lung cancer. Sister(s) Family Medical History: Cancer Additional Family Medical History / Comment(s): VOCAL CORD CANCER. Medications and Allergies Home Medications Medication Instructions Recorded Confirmed Type Multivitamins, Thera [Multivitamin 1 tab PO DAILY 07/10/17 07/02/23 History (formulary)] Tamoxifen Citrate 20 mg PO DAILY 12/16/17 07/02/23 History Cholecalciferol [Vitamin D3 (25 50 mcg PO DAILY 05/02/20 07/02/23 History Mcg = 1000 Iu)] Cyanocobalamin [Vitamin B-12] 1,000 mcg PO DAILY 05/02/20 07/02/23 History Ascorbic Acid [Vitamin C] 1,000 mg PO DAILY 06/05/22 07/02/23 History Cetuximab [Erbitux] 1 dose IV DIRECTED 09/04/22 07/02/23 History Prochlorperazine Maleate 10 mg PO Q6H PRN 09/04/22 07/02/23 History Valsartan 320 mg PO DAILY 09/04/22 07/02/23 History Amoxic-Pot Clav 875-125Mg 1 tab PO Q12HR 07/02/23 07/02/23 History [Augmentin 875-125] DULoxetine HCL [Cymbalta] 30 mg PO BID 07/02/23 07/02/23 History Metoprolol Succinate (ER) [Toprol 50 mg PO DAILY 07/02/23 07/02/23 History Xl] Metoprolol Succinate (ER) [Toprol 100 mg PO DAILY 07/02/23 07/02/23 History Xl] Vitamin E (Dl,Tocopheryl Acet) 400 unit PO DAILY 07/02/23 07/02/23 History [Vitamin E (400 Iu = 180 mg)] diazePAM [Valium] 1 mg PO TID PRN 07/02/23 07/02/23 History traMADol HCL 50 mg PO TID PRN 07/02/23 07/02/23 History Allergies Allergy/AdvReac Type Severity Reaction Status Date / Time No Known Allergies Allergy Verified 07/02/23 13:18 Surgical - Exam - General no distress - Eyes normal ocular movement - ENT no hearing loss - Neck trachea midline - Respiratory normal respiratory effort - Cardiovascular Rhythm: regular Heart Sounds: normal: S1, S2 - Abdomen Abdomen: soft, non tender, no guarding, no rigid, no rebound - Integumentary normal turgor - Neurologic no disoriented, no combative - Musculoskeletal normal gait - Psychiatric oriented to time, oriented to person, oriented to place, speech is normal, memory intact Breast Exam: BRA: 38D Inspection: Asymmetry of the breast related to left breast lumpectomy and radiation therapy Palpation: Right breast: Multi positional exam no dominant masses or nodules of concern Right axilla: No adenopathy of concern Left breast: Scar from prior lumpectomy with radiation changes, there is fullness to the breast making it difficult to examine and postradiation changes Left axilla: No adenopathy of concern Results left breast mammogram and ultrasoud 07-03-23 reviewed BIRAD 3 Assessment and Plan Assessment: Impression: Recent left breast cellulitis/infection resolved at this time Chronic left breast scarring and radiation changes Metastatic colon cancer which is at the present time no evidence of disease Patient is presently on maintenance chemotherapy Plan: Discussion with Dr. Varela regarding left mastectomy Patient will be due for right breast mammogram in 3 months would like to have this done prior to left mastectomy Probable left mastectomy in August; this is being done secondary to the fact that we cannot follow this breast secondary to the firmness in the breast and difficu lt examination as well as the risk of developing another infection, as well as the fact that the patient states that is very asymmetric and difficult to find closed if it CC: Dr. Asif
[2023-07-10 15:54] VITALS: BP 143/76; PULSE 82; RESP 17; TEMP 97.9
== END ==
LOC: WWCWWP 13:38
PROVIDERS: ATTEND Surgery
DX: N64.4 Mastodynia (principal); N60.92 Unspecified benign mammary dysplasia of left breast; N64.89 Other specified disorders of breast; L90.5 Scar conditions and fibrosis of skin; Z85.038 Personal history of other malignant neoplasm of large intestine; Z92.3 Personal history of irradiation; Z87.891 Personal history of nicotine dependence; Z85.3 Personal history of malignant neoplasm of breast; Z92.21 Personal history of antineoplastic chemotherapy

== ENCOUNTER → 2023-07-15 | Outpatient (CLI) | payer MEDICARE, BC ==
[2023-07-15 19:21] LABS: Basophils # (A) 0.07 X 10*3/uL (0.00-0.10); Basophils % (A) 0.9 %; Eosinophils # (A) 0.25 X 10*3/uL (0.04-0.35); Eosinophils % (A) 3.1 %; HCT 34.9 % (37.2-46.3); Lymphocytes # (A) 1.23 X 10*3/uL (0.90-5.00); Lymphocytes % (A) 15.2 %; MCH 30.1 pg (27.0-32.0); MCHC 31.5 g/dL (32.0-37.0); MCV 95.4 FL (80.0-97.0); Mean Platelet Volume 10.2 FL (9.5-12.2); Monocytes # (A) 0.66 X 10*3/uL (0.20-1.00); Monocytes % (A) 8.1 %; NRBC Per 100 WBC 0 X 10*3/uL (0.00-0.01); Neutrophils # (A) 5.86 X 10*3/uL (1.80-7.70); Neutrophils % (A) 72.2 %; Platelet Count 301 X 10*3/uL (140-440); RBC 3.66 X 10*6/uL (4.10-5.20); RDW 14.3 % (11.5-14.5); WBC 8.11 X 10*3/uL (4.50-10.00)
[2023-07-15 19:33] LABS: BUN/Creat Ratio 17.67 Ratio (12.00-20.00); Blood Urea Nitrogen 15.9 mg/dL (9.0-27.0); Calcium 8.9 mg/dL (8.7-10.3); Carbon Dioxide 22.7 mmol/L (21.6-31.8); Chloride 107 mmol/L (96-109); Glucose 113 mg/dL (70-110); Sodium 142 mmol/L (135-145)
== END | disposition home or self-care (01) ==
LOC: LABPAT 14:03
PROVIDERS: ATTEND Urology
DX: Z01.812 Encounter for preprocedural laboratory examination (principal); N13.1 Hydronephrosis with ureteral stricture, not elsewhere classified
CPT/HCPCS: 36415; 80048; 85025

== ENCOUNTER 2023-07-28 15:11 | Emergency (ER) | payer MEDICARE, BC ==
[2023-07-28 15:55] VITALS: RESP 18
--- NOTE | 2023-07-28 16:24 | ED ---
Fall HPI - General Chief Complaint: Fall Stated Complaint: Fall, no thinners Time Seen by Provider: 07/28/23 16:16 Source: EMS, RN notes reviewed Mode of arrival: EMS - History of Present Illness Initial Comments: 68-year-old female presenting with chief complaint of head injury status post mechanical fall at 2 PM this afternoon. States she was walking down her driveway when she tripped and fell, hitting her right side of forehead on the cement. She does not believe she lost consciousness. Denies blood thinners. States she has been having nausea since the she took an antinausea medication but continues to feel nauseous. Admits headache. Denies any other injuries. She proceeded to go to her infusion appointment at [facility] however instructed her to go straight to the ER. She is also complaining of some left wrist pain as she fell on an outstretched hand. - Related Data Home Medications Medication Instructions Recorded Confirmed Multivitamins, Thera [Multivitamin 1 tab PO QAM 07/10/17 07/28/23 (formulary)] Tamoxifen Citrate 20 mg PO QAM 12/16/17 07/28/23 Cholecalciferol [Vitamin D3 (25 50 mcg PO QAM 05/02/20 07/28/23 Mcg = 1000 Iu)] Cyanocobalamin [Vitamin B-12] 1,000 mcg PO QAM 05/02/20 07/28/23 Ascorbic Acid [Vitamin C] 1,000 mg PO QAM 06/05/22 07/28/23 Cetuximab [Erbitux] 1 dose IV DIRECTED 09/04/22 07/28/23 Prochlorperazine Maleate 10 mg PO Q6H PRN 09/04/22 07/28/23 Valsartan 320 mg PO QAM 09/04/22 07/28/23 DULoxetine HCL [Cymbalta] 30 mg PO BID 07/02/23 07/28/23 Metoprolol Succinate (ER) [Toprol 50 mg PO QAM 07/02/23 07/28/23 Xl] Metoprolol Succinate (ER) [Toprol 100 mg PO QAM 07/02/23 07/28/23 Xl] Vitamin E (Dl,Tocopheryl Acet) 400 unit PO QAM 07/02/23 07/28/23 [Vitamin E (400 Iu = 180 mg)] Eraftovi(Unknown Dose) 75 mg PO QAM 07/28/23 07/28/23 Fish Oil(Unknown Dose) 1 dose PO QAM 07/28/23 07/28/23 Magnesium(Unknown Dose) 1 dose PO QAM 07/28/23 07/28/23 Allergies Allergy/AdvReac Type Severity Reaction Status Date / Time No Known Allergies Allergy Verified 07/28/23 09:47 Review of Systems ROS Statement: Those systems with pertinent positive or pertinent negative responses have been documented in the HPI. ROS Other: All systems not noted in ROS Statement are negative. 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 last chemo june 2020. METS to both lungs History of Any Multi-Drug Resistant Organisms: None Reported Past Surgical History: Bowel Resection, Breast Surgery, Cholecystectomy, Hysterectomy Additional Past Surgical History / Comment(s): LT BREAST LUMPECTOMY-RADIATION, COLONOSCOPY, HAS PORT A CATH Past Anesthesia/Blood Transfusion Reactions: No Reported Reaction Additional Past Anesthesia/Blood Transfusion Reaction / Comment(s): No problems with previous blood transfusion. Past Psychological History: No Psychological Hx Reported Smoking Status: Former smoker Past Alcohol Use History: Occasional Past Drug Use History: None Reported - Past Family History Mother Family Medical History: COPD, Dementia Father Family Medical History: AFIB, Cancer Additional Family Medical History / Comment(s): Lung cancer. Sister(s) Family Medical History: Cancer Additional Family Medical History / Comment(s): VOCAL CORD CANCER General Exam - General Exam Comments Initial Comments: Visual Physical Exam Vital signs reviewed General: Well-appearing, nontoxic, no acute distress. Head: Normocephalic, atraumatic Eyes: PERRLA, EOMI ENT: Airway patent Chest: Nonlabored breathing Skin: No visual rash, normal skin tone Neuro: Alert and oriented 3 Musculoskeletal: No gross abnormalities Limitations: no limitations General appearance: alert, in no apparent distress Head exam: Present: atraumatic, normocephalic, other (1 x 1 cm hematoma present on right yarsani with moderate tenderness to palpation) Eye exam: Present: normal appearance, PERRL, EOMI. Absent: scleral icterus, conjunctival injection, periorbital swelling ENT exam: Present: normal exam, mucous membranes moist, TM's normal bilaterally Neck exam: Present: normal inspection. Absent: tenderness, meningismus, lymphadenopathy Respiratory exam: Present: normal lung sounds bilaterally. Absent: respiratory distress, wheezes, rales, rhonchi, stridor Cardiovascular Exam: Present: regular rate, normal rhythm, normal heart sounds. Absent: systolic murmur, diastolic murmur, rubs, gallop, clicks GI/Abdominal exam: Present: soft, normal bowel sounds. Absent: distended, tenderness, guarding, rebound, rigid Extremities exam: Present: normal inspection, full ROM, tenderness (Tenderness to palpation on dorsal aspect of left wrist), normal capillary refill. Absent: pedal edema, joint swelling, calf tenderness Neurological exam: Present: alert, oriented X3, CN II-XII intact Psychiatric exam: Present: normal affect, normal mood Skin exam: Present: warm, dry, intact, normal color. Absent: rash Course Vital Signs 07/28/23 07/28/23 15:51 19:12 Temperature 97.5 F L 98.3 F Pulse Rate 81 69 Respiratory 18 18 Rate Blood Pressure 119/75 134/80 O2 Sat by Pulse 99 97 Oximetry Medical Decision Making - Medical Decision Making I completed the quick note portion of this chart signed Ivonne Hernandez PA-C Was pt. sent in by a medical professional or institution ([facility] Pabon, PROGRAM DIRECTOR AIR TALENT, urgent care, hospital, or longterm...) When possible be specific @ -Sent by [facility] due to fall with head injury Did you speak to anyone other than the patient for history (EMS, parent, family, police, friend...)? What history was obtained from this source @ -Patient's daughter supplemented history Did you review nursing and triage notes (agree or disagree)? Why? @ -I reviewed and agree with nursing and triage notes Were old charts reviewed (outside hosp., previous admission, EMS record, old EKG, old radiological studies, urgent care reports/EKG's, longterm records)? Report findings @ -No old charts were reviewed Differential Diagnosis (chest pain, altered mental status, abdominal pain women, abdominal pain men, vaginal bleeding, weakness, fever, dyspnea, syncope, headache, dizziness, GI bleed, back pain, seizure, CVA, palpatations, mental health, musculoskeletal)? @ -Differential Headache: Migraine, tension, cluster, carbon monoxide, central venous thrombosis, pension karma temporal arteritis, acute closure glaucoma, intercranial hemorrhage, mastoiditis, sinusitis, head injury, this is not meant to be an all-inclusive list. EKG interpreted by me (3pts min.). @ -None X-rays interpreted by me (1pt min.). @ -X-ray of left wrist reveals no acute fracture or dislocation CT interpreted by me (1pt min.). @ -CT of head and neck reveals no acute fracture or dislocation and cervical spine, no acute intracranial hemorrhage or midline shift U/S interpreted by me (1pt. min.). @ -None done What testing was considered but not performed or refused? (CT, X-rays, U/S, labs)? Why? @ -None What meds were considered but not given or refused? Why? @ -None Did you discuss the management of the patient with other professionals (professionals i.e. , PA, PROGRAM DIRECTOR [employer]AL[employer], lab, RT, psych nurse, high school social studies teacher, graduate intern, teacher, geospatial program management officer, shoe caser)? Give summary @ -No Was smoking cessation discussed for >3mins.? @ -No Was critical care preformed (if so, how long)? @ -No Were there social determinants of health that impacted care today? How? (Homelessness, low income, unemployed, alcoholism, drug addiction, transportation, low edu. Level, literacy, decrease access to med. care, prison, rehab)? @ -No Was there de-escalation of care discussed even if they declined (Discuss DNR or withdrawal of care, Hospice)? DNR status @ -No What co-morbidities impacted this encounter? (DM, HTN, Smoking, COPD, CAD, Cancer, CVA, ARF, Chemo, Hep., AIDS, mental health diagnosis, sleep apnea, morbid obesity)? @ -None Was patient admitted / discharged? Hospital course, mention meds given and route, prescriptions, significant lab abnormalities, going to OR and other pertinent info. @ -Patient was discharged. Patient was seen and evaluated for head injury status post mechanical fall today. Patient is also complaining of left wrist pain and nausea. Patient is neurovascularly intact. Neuro exam is unremarkable. CT of head and neck obtained due to location of head injury as well as nausea after head injury and was negative for acute fracture or dislocation and cervical spine no acute intracranial hemorrhage or midline shift. Left wrist x-ray was negative for fracture or dislocation. Mild concussion discussed with patient and daughter in detail. Advised to follow-up with PCP in 1 to 3 days for reevaluation. Strict return/alarm symptoms discussed with patient in detail and she shows understanding and agrees with plan. Case discussed with my attending Dr. Galaviz. Patient discharged in stable condition. Undiagnosed new problem with uncertain prognosis? @ -No Drug Therapy requiring intensive monitoring for toxicity (Heparin, Nitro, Insulin, Cardizem)? @ -No Were any procedures done? @ -No Diagnosis/symptom? @ -Mild concussion, left wrist strain Acute, or Chronic, or Acute on Chronic? @ -Acute Uncomplicated (without systemic symptoms) or Complicated (systemic symptoms)? @ -Uncomplicated Side effects of treatment? @ -No Exacerbation, Progression, or Severe Exacerbation? @ -No Poses a threat to life or bodily function? How? (Chest pain, [place], VA, pneumonia, PE, COPD, DKA, ARF, appy, cholecystitis, CVA, Diverticulitis, Homicidal, Suicidal, threat to staff... and all critical care pts) @ -Low likelihood Disposition Clinical Impression: Concussion, Strain of left wrist Disposition: HOME SELF-CARE Condition: Stable Instructions (If sedation given, give patient instructions): Concussion (ED), Wrist Sprain (ED) Additional Instructions: Please follow-up with PCP in 1 to 3 days for reevaluation. Please return to the Emergency Department if symptoms worsen or any other concerns. Is patient prescribed a controlled substance at d/c from ED?: No Referrals: Josefa Asif MD [Primary Care Provider] - 1-2 days Time of Disposition: 18:49
--- NOTE | 2023-07-28 17:27 | CT ---
EXAMINATION TYPE: CT brain cspine wo con DATE OF EXAM: 07/28/2023 COMPARISON: CT brain September 04, 2022 HISTORY: Fall, No LOC, No thinners. CT DLP: 1354.1 mGycm. Automated Exposure Control for Dose Reduction was Utilized. TECHNIQUE: CT scan of the head and cervical spine are performed without contrast. FINDINGS: There is no acute intracranial hemorrhage or midline shift identified. Mild ventricular a nd sulcal prominence. Mild low attenuation in periventricular white matter. The calvarium is intact. The globes are intact and the visualized sinuses are clear. Cervical spine is visualized in its entirety from C1 through upper thoracic levels and demonstrates s atisfactory alignment without evidence of acute fracture or dislocation. Prevertebral soft tissue ap pears within normal limits. The C1-C2 articulation is within normal limits on the coronal images. V ertebral body heights are maintained. Mild to moderate disc space narrowing and anterior spurring at C5-C6 level. Mild to moderate anterior spurring at C6-C7 and C7-T1 levels. Small-sized thyroid gland is present. Lung apices are clear without pneumothorax seen. Left subclavian Mediport catheter is par tially imaged. IMPRESSION: 1. There is no acute fracture or dislocation evident in the cervical spine. 2. No acute intracranial hemorrhage or midline shift is seen.
--- NOTE | 2023-07-28 18:21 | XR ---
EXAMINATION TYPE: XR wrist complete LT DATE OF EXAM: 07/28/2023 CLINICAL HISTORY: Injury TECHNIQUE: Frontal, lateral, scaphoid, and oblique images of the left wrist are obtained. COMPARISON: None FINDINGS: There is no acute fracture/dislocation evident in the left wrist. Uipizjzl-cl-irhutm trisc aphe joint degenerative change. Overlying soft tissue is unremarkable. IMPRESSION: There is no acute fracture or dislocation in the left wrist.
[2023-07-28 19:13] VITALS: BP 134/80; PULSE 69; TEMP 98.3
== END 2023-07-28 19:13 | disposition home or self-care (01) ==
LOC: EC 15:11
DX: S06.0X0A Concussion without loss of consciousness, initial encounter (principal); S66.912A Strain of unspecified muscle, fascia and tendon at wrist and hand level, left hand, initial encounter; R40.2410 Glasgow coma scale score 13-15, unspecified time; Z87.891 Personal history of nicotine dependence; W01.198A Fall on same level from slipping, tripping and stumbling with subsequent striking against other object, initial encounter; Y93.01 Activity, walking, marching and hiking
CPT/HCPCS: 70450; 72125; 99284

== ENCOUNTER 2023-07-30 06:08 | Day surgery (SDC) | payer MEDICARE, BC ==
[2023-07-28 09:57] VITALS: BMI 30.5
--- NOTE | 2023-07-29 23:04 | P.GSHP ---
History of Present Illness H&P Date: 07/29/23 Chief Complaint: Left hydronephrosis The patient is a 68-year-old white female with a history of multiple malignancies, including breast and colon cancer. She is now receiving systemic chemotherapy. She was found earlier this year to have left hydroureteronephrosis. She underwent cystoscopy with left ureteral stent insertion on 07/16/2022. At that time, she was found to have a left distal ureteral stricture, which was opened with balloon dilation. CT scan in August margi thu interval development of right hydronephrosis. A right retrograde pyelogram at that time showed no evidence of right hydronephrosis. She underwent left ureteral stent change most recently on 04/30/2023. The removed stent was a 26 cm, 7-Slovenian double-J ureteral stent which was partially calcified. - Constitutional Constitutional: Denies chills, Denies fever - Cardiovascular Cardiovascular: Reports high blood pressure - Genitourinary (Female) Genitourinary: Denies dysuria Past Medical History Past Medical History: Cancer, GERD/Reflux, Hypertension, Osteoarthritis (OA), Pneumonia Additional Past Medical History / Comment(s): LT BREAST CANCER, colon cancer stage II-METS TO OVARIES-with chemo. METS to both lungs-is on IV Chemo presently07/28/23. "Left kidney does not work as it should.""I have this proc edure done every 3 months." History of Any Multi-Drug Resistant Organisms: None Reported Past Surgical History: Bowel Resection, Breast Surgery, Cholecystectomy, Hysterectomy Additional Past Surgical History / Comment(s): LT BREAST LUMPECTOMY-RADIATION, COLONOSCOPY, HAS PORT A CATH-rt side of chest. Cystoscopy. Past Anesthesia/Blood Transfusion Reactions: No Reported Reaction Additional Past Anesthesia/Blood Transfusion Reaction / Comment(s): Hx of blood transfusion-no reaction Smoking Status: Former smoker - Past Family History Mother Family Medical History: COPD, Dementia Father Family Medical History: AFIB, Cancer Additional Family Medical History / Comment(s): Lung cancer. Sister(s) Family Medical History: Cancer Additional Family Medical History / Comment(s): VOCAL CORD CANCER Medications and Allergies Home Medications Medication Instructions Recorded Confirmed Type Multivitamins, Thera [Multivitamin 1 tab PO QAM 07/10/17 07/28/23 History (formulary)] Tamoxifen Citrate 20 mg PO QAM 12/16/17 07/28/23 History Cholecalciferol [Vitamin D3 (25 50 mcg PO QAM 05/02/20 07/28/23 History Mcg = 1000 Iu)] Cyanocobalamin [Vitamin B-12] 1,000 mcg PO QAM 05/02/20 07/28/23 History Ascorbic Acid [Vitamin C] 1,000 mg PO QAM 06/05/22 07/28/23 History Cetuximab [Erbitux] 1 dose IV DIRECTED 09/04/22 07/28/23 History Prochlorperazine Maleate 10 mg PO Q6H PRN 09/04/22 07/28/23 History Valsartan 320 mg PO QAM 09/04/22 07/28/23 History DULoxetine HCL [Cymbalta] 30 mg PO BID 07/02/23 07/28/23 History Metoprolol Succinate (ER) [Toprol 50 mg PO QAM 07/02/23 07/28/23 History Xl] Metoprolol Succinate (ER) [Toprol 100 mg PO QAM 07/02/23 07/28/23 History Xl] Vitamin E (Dl,Tocopheryl Acet) 400 unit PO QAM 07/02/23 07/28/23 History [Vitamin E (400 Iu = 180 mg)] Eraftovi(Unknown Dose) 75 mg PO QAM 07/28/23 07/28/23 History Fish Oil(Unknown Dose) 1 dose PO QAM 07/28/23 07/28/23 History Magnesium(Unknown Dose) 1 dose PO QAM 07/28/23 07/28/23 History Allergies Allergy/AdvReac Type Severity Reaction Status Date / Time No Known Allergies Allergy Verified 07/28/23 09:47 Surgical - Exam - General well developed, well nourished, no distress - Respiratory normal respiratory effort - Abdomen Abdomen: soft, non tender, no guarding, no rigid, no rebound - Genitourinary normal external genitalia - Psychiatric oriented to time, oriented to person, oriented to place, speech is normal, memory intact Assessment and Plan (1) Hydronephrosis with ureteral stricture, not elsewhere classified Status: Acute Code(s): N13.1 - HYDRONEPHROSIS W URETERAL STRICTURE, NEC SNOMED Code(s): 99352790 Plan: Cystoscopy, left ureteral stent change. The procedure has been reviewed in detail with the patient. She is aware of potential risks, which include anesthesia, infection, loss of ureteral access, and ureteral injury.
[2023-07-30] MEDS: IV FLUID CONTINUATION 1,000 ML IV ONE (06:47)
[2023-07-30] MEDS ORDERED: HYDROmorphone 0.5 MG/0.5 ML SYRINGE IVP PRN (07:00)
[2023-07-30] MEDS: ONDANSETRON 4 MG/2 ML VIAL IVP ONE (07:10)
[2023-07-30] MEDS: DEXAMETHASONE SOD PHOSPHATE 4 MG/ML 1 ML VIAL IV ONE (07:10)
[2023-07-30] MEDS: LACTATED RINGERS 1,000 ML IV SCH (07:10)
[2023-07-30 07:17] VITALS: RESP 16
[2023-07-30] MEDS ORDERED: LIDOCAINE 1% INJ 10MG/ML (20 ML MDV) ONE (07:29)
[2023-07-30] MEDS ORDERED: PROPOFOL 10 MG/ML 20 ML VIAL IV ONE (07:29)
[2023-07-30] MEDS ORDERED: PHENYLEPHRINE 10 MG/ML VIAL ONE (07:29)
[2023-07-30] MEDS ORDERED: MIDAZOLAM 2 MG/2 ML VIAL ONE (07:29)
[2023-07-30] MEDS ORDERED: fentaNYL (PF) 50 MCG/ML 2 ML AMP ONE (07:29)
--- NOTE | 2023-07-30 08:09 | P.OP ---
Date of Procedure: 07/30/23 Preoperative Diagnosis: Left hydronephrosis secondary to left ureteral stricture Postoperative Diagnosis: Same Procedure(s) Performed: Cystoscopy, left ureteral stent change Anesthesia: MARQUITAA Surgeon: Krystian Dunlap Estimated Blood Loss (ml): 0 IV fluids (ml): 400 Pathology: none sent Condition: stable Disposition: PACU Indications for Procedure: The patient is a 68-year-old white female with a history of multiple malignancies, including breast and colon cancer. She is now receiving systemic chemotherapy. She was found earlier this year to have left hydroureteronephrosis. She underwent cystoscopy with left ureteral stent insertion on 07/16/2022. At that time, she was found to have a left distal ureteral stricture, which was opened with balloon dilation. CT scan in August showed interval development of right hydronephrosis. A right retrograde pyelogram at that time showed no evidence of right hydronephrosis. She underwent left ureteral stent change most recently on 04/30/2023. Operative Findings: Successful left ureteral stent change Description of Procedure: The patient was taken to the operating room and placed in the dorsolithotomy position, with legs supported in Willie stirrups. The external genitalia was prepped and draped sterilely. The 30 lens was used to introduce the 22-Hebrew Stortz cystoscopic sheath through the urethra and into the bladder under direct vision. The bladder was examined in its entirety. No abnormalities were seen. Grasping forceps were used to grasp the distal end of the left ureteral stent, which was removed along with the cystoscope. A 0.035 inch Glidewire was passed through the stent and up to the left renal pelvis. The stent was removed, and the Glidewire was backloaded into the cystoscope, which was replaced into the bladder. A 24 cm, 7-Hebrew double-J silicone ureteral stent was placed over the wire. Proper stent positioning was verified fluoroscopically and endoscopically. The bladder was emptied and the cystoscope removed. The patient tolerated the procedure well was taken to the recovery room in stable condition.
--- NOTE | 2023-07-30 08:26 | FL ---
EXAMINATION TYPE: FL guidance operating room DATE OF EXAM: 07/30/2023 HISTORY: Fluoroscopy time Total dose area product (DAP) in uGy*m?, mGy*cm? (or similar): 0.84650 IMPRESSION: 1. Fluoroscopy time.
[2023-07-30 08:27] VITALS: TEMP 97.6
[2023-07-30 09:45] VITALS: BP 136/75; PULSE 74
== END 2023-07-30 10:01 | disposition home or self-care (01) ==
LOC: OR 06:08
PROVIDERS: ATTEND Urology
DX: N13.1 Hydronephrosis with ureteral stricture, not elsewhere classified (principal); I10 Essential (primary) hypertension; K21.9 Gastro-esophageal reflux disease without esophagitis; M19.90 Unspecified osteoarthritis, unspecified site; Z85.038 Personal history of other malignant neoplasm of large intestine; Z85.3 Personal history of malignant neoplasm of breast; Z87.891 Personal history of nicotine dependence; Z90.49 Acquired absence of other specified parts of digestive tract; Z90.710 Acquired absence of both cervix and uterus; Z79.899 Other long term (current) drug therapy
CPT/HCPCS: 52332; C1769; J2250; J1100; J0690; J2405; J2001; J3010; J2704; J2371

== ENCOUNTER 2023-09-05 11:23 | Inpatient (IN) | payer MEDICARE, BC ==
--- NOTE | 2023-09-05 11:56 | ED ---
General Adult HPI - General Chief complaint: Recheck/Abnormal Lab/Rx Stated complaint: Back pain, chills, vomiting, nausea, stint ureter Time Seen by Provider: 09/05/23 11:40 Source: patient, family, RN notes reviewed Mode of arrival: ambulatory Limitations: no limitations - History of Present Illness Initial comments: This is a 68-year-old female with a past history of metastatic colon cancer on current chemotherapy who presents to the emergency department chief complaint of left-sided flank pain, hematuria, nausea and vomiting that started this morning. Patient does have a history of a left ureteral stent that was placed due to kidney insufficiency in the left side. Currently patient is endorsing suprapubic abdominal pain and radiation to the left flank. States that nausea has increased over the past day as well. denies hematemesis, coffee-ground emesis, dark or tarry stools, hematochezia. - Related Data Home Medications Medication Instructions Recorded Confirmed Multivitamins, Thera [Multivitamin 1 tab PO DAILY 07/10/17 09/05/23 (formulary)] Tamoxifen Citrate 20 mg PO DAILY 12/16/17 09/05/23 Cholecalciferol [Vitamin D3 (25 50 mcg PO DAILY 05/02/20 09/05/23 Mcg = 1000 Iu)] Cyanocobalamin [Vitamin B-12] 1,000 mcg PO DAILY 05/02/20 09/05/23 Ascorbic Acid [Vitamin C] 1,000 mg PO DAILY 06/05/22 09/05/23 Cetuximab [Erbitux] 1 dose IV Q7D 09/04/22 09/05/23 Prochlorperazine Maleate 10 mg PO Q6H PRN 09/04/22 09/05/23 Valsartan 320 mg PO DAILY 09/04/22 09/05/23 Metoprolol Succinate (ER) [Toprol 100 mg PO DAILY 07/02/23 09/05/23 Xl] Vitamin E (Dl,Tocopheryl Acet) 400 unit PO DAILY 07/02/23 09/05/23 [Vitamin E (400 Iu = 180 mg)] Betamethasone Dipropionate 1 applic TOPICAL DAILY PRN 09/05/23 09/05/23 [Betamethasone Dipropionate 0.05% Cream] DULoxetine HCL [Cymbalta] 60 mg PO Q48H 09/05/23 09/05/23 Encorafenib [Braftovi] 300 mg PO DIRECTED 09/05/23 09/05/23 Metoprolol Succinate (ER) [Toprol 25 mg PO DAILY 09/05/23 09/05/23 Xl] diazePAM [Valium] 1 mg PO TID PRN 09/05/23 09/05/23 Allergies Allergy/AdvReac Type Severity Reaction Status Date / Time No Known Allergies Allergy Verified 09/05/23 15:21 Review of Systems ROS Statement: Those systems with pertinent positive or pertinent negative responses have been documented in the HPI. ROS Other: All systems not noted in ROS Statement are negative. 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 last chemo june 2020. METS to both lungs History of Any Multi-Drug Resistant Organisms: None Reported Past Surgical History: Bowel Resection, Breast Surgery, Cholecystectomy, Hysterectomy Additional Past Surgical History / Comment(s): LT BREAST LUMPECTOMY-RADIATION, COLONOSCOPY, HAS PORT A CATH Past Anesthesia/Blood Transfusion Reactions: No Reported Reaction Additional Past Anesthesia/Blood Transfusion Reaction / Comment(s): No problems with previous blood transfusion. Past Psychological History: No Psychological Hx Reported Smoking Status: Former smoker Past Alcohol Use History: Occasional Past Drug Use History: None Reported - Past Family History Mother Family Medical History: COPD, Dementia Father Family Medical History: AFIB, Cancer Additional Family Medical History / Comment(s): Lung cancer. Sister(s) Family Medical History: Cancer Additional Family Medical History / Comment(s): VOCAL CORD CANCER General Exam Limitations: no limitations General appearance: alert, in no apparent distress Head exam: Present: atraumatic, normocephalic, normal inspection Eye exam: Present: normal appearance, PERRL, EOMI. Absent: scleral icterus, conjunctival injection, periorbital swelling ENT exam: Present: normal exam, mucous membranes moist Neck exam: Present: normal inspection. Absent: tenderness, meningismus, lymphadenopathy Respiratory exam: Present: normal lung sounds bilaterally. Absent: respiratory distress, wheezes, rales, rhonchi, stridor Cardiovascular Exam: Present: regular rate, normal rhythm, normal heart sounds. Absent: systolic murmur, diastolic murmur, rubs, gallop, clicks GI/Abdominal exam: Present: soft, tenderness (LLQ and suprapubic), normal bowel sounds. Absent: distended, guarding, rebound, rigid Extremities exam: Present: normal inspection, full ROM, normal capillary refill. Absent: tenderness, pedal edema, joint swelling, calf tenderness Back exam: Present: normal inspection, full ROM, CVA tenderness (L) Neurological exam: Present: alert, oriented X3, CN II-XII intact Psychiatric exam: Present: normal affect, normal mood Skin exam: Present: warm, dry, intact, normal color. Absent: rash Course Vital Signs 09/05/23 09/05/23 09/05/23 11:42 15:05 16:00 Temperature 98.5 F Pulse Rate 92 90 94 Respiratory 18 18 18 Rate Blood Pressure 151/91 169/93 166/84 O2 Sat by Pulse 98 96 94 L Oximetry Medical Decision Making - Medical Decision Making Was pt. sent in by a medical professional or institution (, PA, PHOSPHATIC FERTILIZER SUPERVISOR, urgent care, hospital, or care home...) When possible be specific @ -No Did you speak to anyone other than the patient for history (EMS, parent, family, police, friend...)? What history was obtained from this source @ -No Did you review nursing and triage notes (agree or disagree)? Why? @ -I reviewed and agree with nursing and triage notes Were old charts reviewed (outside hosp., previous admission, EMS record, old EKG, old radiological studies, urgent care reports/EKG's, care home records)? Report findings @ -No old charts were reviewed Differential Diagnosis (chest pain, altered mental status, abdominal pain women, abdominal pain men, vaginal bleeding, weakness, fever, dyspnea, syncope, headache, dizziness, GI bleed, back pain, seizure, CVA, palpatations, mental health, musculoskeletal)? @ -Differential Abdominal Pain Women: Appendicitis, Cholecystitis, diverticulosis, ischemic bowel, pancreatitis, hepatitis, UTI, gastroenteritis, AAA, incarcerated hernia, bowel obstruction, constipation, inflammatory bowel, hepatitis, peptic ulcer disease, splenic infarction, perforated viscus, vulvitis, ovarian torsion, PID, kidney stone, placenta abruption, this is not meant to be an all-inclusive list EKG interpreted by me (3pts min.). @ -None X-rays interpreted by me (1pt min.). @ -None done CT interpreted by me (1pt min.). @ -CT of the abdomen pelvis with IV contrast reveals inflammatory changes around the left kidney and left ureteral stent in place, no ureteral calculi visualized, mild to moderate hydronephrosis on the left. U/S interpreted by me (1pt. min.). @ -None done What testing was considered but not performed or refused? (CT, X-rays, U/S, labs)? Why? @ -None What meds were considered but not given or refused? Why? @ -None Did you discuss the management of the patient with other professionals (professionals i.e. DrGiovanny, PA, PHOSPHATIC FERTILIZER SUPERVISOR, lab, RT, psych nurse, social media content manager, contour path tape mill operator, teacher, chemistry technical officer, casey saw operator)? Give summary @ -i spoke to pond sawyer physician, internal medicine team [facility], Dr. Girder, in regard to admission of the patient for pyelonephritis and IV antibiotics. Patient is excepted for admission. Was smoking cessation discussed for >3mins.? @ -No Was critical care preformed (if so, how long)? @ -No Were there social determinants of health that impacted care today? How? (H omelessness, low income, unemployed, alcoholism, drug addiction, transportation, low edu. Level, literacy, decrease access to med. care, intermediate, rehab)? @ -No Was there de-escalation of care discussed even if they declined (Discuss DNR or withdrawal of care, Hospice)? DNR status @ -No What co-morbidities impacted this encounter? (DM, HTN, Smoking, COPD, CAD, Cancer, CVA, ARF, Chemo, Hep., AIDS, mental health diagnosis, sleep apnea, morbid obesity)? @ -None Was patient admitted / discharged? Hospital course, mention meds given and route, prescriptions, significant lab abnormalities, going to OR and other pertinent info. @ -68-year-old female with nausea, vomiting, abdominal flank pain. On exam ination patient is noted to have left-sided flank pain and left sided abdominal pain that is palpated. Abdomen is soft. Vitals are stable upon arrival. She was to be symptomatically treated with IV fluids due to episodes of emesis, antiemetics, blood work ordered in addition to urinalysis and CT to rule out acute intra-abdominal process. She is also given pain medication. CBC reveals leukocytosis 16.6 and neutrophilia 14.8 which is consistent with episodes of emesis this morning. Additionally CMP remarkable for acidosis with a CO2 of 17 and chloride 113. Bradford nonelevated. Amylase lipase within normal limits. Urinalysis remarkable for signs of infection including large leukocyte esterase, white blood cells, and positive nitrates. CT concerning for ascending infection of the left kidney. Cultures ordered in addition to urine cultures and patient started on additional liter fluid bolus and IV antibiotics started including Zosyn and vancomycin. Patient is accepted to [facility] for pyelonephritis. pain medications ordered for as needed and scopolamine patch order placed for nausea. case discused with Dr. Landon Undiagnosed new problem with uncertain prognosis? @ -No Drug Therapy requiring intensive monitoring for toxicity (Heparin, Nitro, Insulin, Cardizem)? @ -No Were any procedures done? @ -No Diagnosis/symptom? @ -pyeloneprhitis, urinary tract infection Acute, or Chronic, or Acute on Chronic? @ -Acute Uncomplicated (without systemic symptoms) or Complicated (systemic symptoms)? @ -complicated Side effects of treatment? @ -No Exacerbation, Progression, or Severe Exacerbation? @ -No Poses a threat to life or bodily function? How? (Chest pain, USA, MS, pneumonia, PE, COPD, DKA, ARF, appy, cholecystitis, CVA, Diverticulitis, Homicidal, Suicidal, threat to staff... and all critical care pts) @ -potentially, untreated pyelonephritis can lead to potential bacteremia and multiorgan system dysfunction. - Lab Data Result diagrams: 09/05/23 12:12 09/05/23 12:12 Lab Results 09/05/23 09/05/23 09/05/23 Range/Units 12:12 12:12 12:12 WBC 16.6 H (3.8-10.6) k/uL RBC 3.87 (3.80-5.40) m/uL Hgb 12.0 (11.4-16.0) gm/dL Hct 36.6 (34.0-46.0) % MCV 94.5 (80.0-100.0) fL MCH 30.9 (25.0-35.0) pg MCHC 32.7 (31.0-37.0) g/dL RDW 13.8 (11.5-15.5) % Plt Count 230 (150-450) k/uL MPV 8.3 Neutrophils % 89 % Lymphocytes % 5 % Monocytes % 5 % Eosinophils % 1 % Basophils % 0 % Neutrophils # 14.8 H (1.3-7.7) k/uL Lymphocytes # 0.8 L (1.0-4.8) k/uL Monocytes # 0.8 (0-1.0) k/uL Eosinophils # 0.1 (0-0.7) k/uL Basophils # 0.1 (0-0.2) k/uL Sodium 137 (137-145) mmol/L Potassium 4.0 (3.5-5.1) mmol/L Chloride 113 H (98-107) mmol/L Carbon Dioxide 17 L (22-30) mmol/L Anion Gap 7 mmol/L BUN 24 H (7-17) mg/dL Creatinine 0.76 (0.52-1.04) mg/dL Est GFR (CKD-EPI)AfAm >90 (>60 ml/min/1.73 sqM) Est GFR (CKD-EPI)NonAf 81 (>60 ml/min/1.73 sqM) Glucose 139 H (74-99) mg/dL Plasma Lactic Acid Bradley (0.7-2.0) mmol/L Calcium 9.0 (8.4-10.2) mg/dL Total Bilirubin 0.5 (0.2-1.3) mg/dL AST 20 (14-36) U/L ALT 16 (4-34) U/L Alkaline Phosphatase 88 (38-126) U/L Total Protein 6.4 (6.3-8.2) g/dL Albumin 3.4 L (3.5-5.0) g/dL Amylase 45 (30-110) U/L Lipase 189 (23-300) U/L Urine Color Yellow Urine Appearance Cloudy H (Clear) Urine pH 6.0 (5.0-8.0) Ur Specific [place] 1.023 (1.001-1.035) Urine Protein 1+ H (Negative) Urine Glucose (UA) Trace H (Negative) Urine Ketones Negative (Negative) Urine Blood Large H (Negative) Urine Nitrite Positive H (Negative) Urine Bilirubin Negative (Negative) Urine Urobilinogen <2.0 (<2.0) mg/dL Ur Leukocyte Esterase Large H (Negative) Urine RBC 45 H (0-5) /hpf Urine WBC >182 H (0-5) /hpf Urine WBC Clumps Few H (None) /hpf Ur Squamous Epith Cells <1 (0-4) /hpf Urine Bacteria Occasional H (None) /hpf Urine Mucus Occasional H (None) /hpf 09/05/23 Range/Units 12:12 WBC (3.8-10.6) k/uL RBC (3.80-5.40) m/uL Hgb (11.4-16.0) gm/dL Hct (34.0-46.0) % MCV (80.0-100.0) fL MCH (25.0-35.0) pg MCHC (31.0-37.0) g/dL RDW (11.5-15.5) % Plt Count (150-450) k/uL MPV Neutrophils % % Lymphocytes % % Monocytes % % Eosinophils % % Basophils % % Neutrophils # (1.3-7.7) k/uL Lymphocytes # (1.0-4.8) k/uL Monocytes # (0-1.0) k/uL Eosinophils # (0-0.7) k/uL Basophils # (0-0.2) k/uL Sodium (137-145) mmol/L Potassium (3.5-5.1) mmol/L Chloride (98-107) mmol/L Carbon Dioxide (22-30) mmol/L Anion Gap mmol/L BUN (7-17) mg/dL Creatinine (0.52-1.04) mg/dL Est GFR (CKD-EPI)AfAm (>60 ml/min/1.73 sqM) Est GFR (CKD-EPI)NonAf (>60 ml/min/1.73 sqM) Glucose (74-99) mg/dL Plasma Lactic Acid Bradley 1.1 (0.7-2.0) mmol/L Calcium (8.4-10.2) mg/dL Total Bilirubin (0.2-1.3) mg/dL AST (14-36) U/L ALT (4-34) U/L Alkaline Phosphatase (38-126) U/L Total Protein (6.3-8.2) g/dL Albumin (3.5-5.0) g/dL Amylase (30-110) U/L Lipase (23-300) U/L Urine Color Urine Appearance (Clear) Urine pH (5.0-8.0) Ur Specific [place] (1.001-1.035) Urine Protein (Negative) Urine Glucose (UA) (Negative) Urine Ketones (Negative) Urine Blood (Negative) Urine Nitrite (Negative) Urine Bilirubin (Negative) Urine Urobilinogen (<2.0) mg/dL Ur Leukocyte Esterase (Negative) Urine RBC (0-5) /hpf Urine WBC (0-5) /hpf Urine WBC Clumps (None) /hpf Ur Squamous Epith Cells (0-4) /hpf Urine Bacteria (None) /hpf Urine Mucus (None) /hpf Disposition Clinical Impression: Pyelonephritis Disposition: ADMITTED IP TO THIS [facility] Condition: Serious Is patient prescribed a controlled substance at d/c from ED?: No Decision to Admit Reason: Admit from EC Decision Date: 09/05/23 Decision Time: 15:13
[2023-09-05 12:24] LABS: Basophils # (A) 0.1 k/uL (0-0.2); Basophils % (A) 0 %; Eosinophils # (A) 0.1 k/uL (0-0.7); Eosinophils % (A) 1 %; HCT 36.6 % (34.0-46.0); Lymphocytes # (A) 0.8 k/uL (1.0-4.8); Lymphocytes % (A) 5 %; MCH 30.9 pg (25.0-35.0); MCHC 32.7 g/dL (31.0-37.0); MCV 94.5 fL (80.0-100.0); Mean Platelet Volume 8.3; Monocytes # (A) 0.8 k/uL (0-1.0); Monocytes % (A) 5 %; Neutrophils # (A) 14.8 k/uL (1.3-7.7); Neutrophils % (A) 89 %; Platelet Count 230 k/uL (150-450); RBC 3.87 m/uL (3.80-5.40); RDW 13.8 % (11.5-15.5); WBC 16.6 k/uL (3.8-10.6)
[2023-09-05] MEDS: SODIUM CHLORIDE 0.9% 1,000 ML IV STA ×2 (12:34→16:34)
[2023-09-05] MEDS: METOCLOPRAMIDE 5 MG/ML 2 ML VIAL IVP STA (12:35)
[2023-09-05] MEDS: MORPHINE SULFATE 2 MG/ML SYRINGE IVP ONE (12:36)
[2023-09-05 12:37] LABS: Appearance,Urine Cloudy (Clear); Bacteria,Urine Occasional /hpf; Bilirubin,Urine Negative (Negative); Blood,Urine Large (Negative); Color,Urine Yellow; Glucose,Urine (UA) Trace (Negative); Ketones,Urine Negative (Negative); Leukocyte Esterase,Urine Large (Negative); Mucus,Urine Occasional /hpf; Nitrite,Urine Positive (Negative); Protein,Urine 1+ (Negative); RBC,Urine 45 /hpf (0-5); Specific Gravity,Urine 1.023 (1.001-1.035); Squamous Epithelial Cell,Urine <1 /hpf (0-4); Urobilinogen,Urine <2.0 mg/dL (<2.0); WBC,Urine >182 /hpf (0-5)
[2023-09-05 12:39] LABS: ALT 16 U/L (4-34); AST 20 U/L (14-36); African American GFR (CKD) >90 (>60 ml/min/1.73 sqM); Albumin 3.4 g/dL (3.5-5.0); Alkaline Phosphatase 88 U/L (38-126); Amylase 45 U/L (30-110); Anion Gap 7 mmol/L; Blood Urea Nitrogen 24 mg/dL (7-17); Carbon Dioxide 17 mmol/L (22-30); Chloride 113 mmol/L (98-107); Glucose 139 mg/dL (74-99); Lipase 189 U/L (23-300); Non-African American GFR(CKD) 81 (>60 ml/min/1.73 sqM); Sodium 137 mmol/L (137-145); Total Bilirubin 0.5 mg/dL (0.2-1.3); Total Protein 6.4 g/dL (6.3-8.2)
[2023-09-05] MEDS: ONDANSETRON 4 MG/2 ML VIAL IVP STA (12:39)
--- NOTE | 2023-09-05 13:48 | CT ---
EXAMINATION TYPE: CT abdomen pelvis w con CT DLP: 1402.6 mGycm, Automated exposure control for dose reduction was used. DATE OF EXAM: 09/05/2023 1:26 PM COMPARISON: CT abdomen pelvis most recent from 07/03/2023. CLINICAL INDICATION:Female, 68 years old with history of left flank pain, hx stent in ureter, nausea/ vomiti; Abdominal pain TECHNIQUE: Axial CT abdomen pelvis w con;Sagittal and coronal reformats were created on a separate w orkstation. Contrast used:100 ml mL of Isovue 300 with IV Contrast, (none if empty) Oral contrast used: without Oral Contrast (none if empty) FINDINGS: LOWER CHEST: Unremarkable ABDOMEN LIVER: Unremarkable GALLBLADDER AND BILE DUCTS: Gallbladder surgically absent. PANCREAS: Unremarkable. SPLEEN: Unremarkable. ADRENAL GLANDS: Unremarkable. KIDNEYS AND URETERS: Inflammation changes around the left kidney left ureteral stent in place. No ureteral calculi visuali zed lung the course of the stent. There remains mild to moderate hydronephrosis. PELVIS BLADDER: Unremarkable REPRODUCTIVE: Unremarkable. ABDOMEN & PELVIS STOMACH AND BOWEL: No evidence of bowel obstruction. Scattered colonic diverticula. PERITONEUM/RETROPERITONEUM: No evidence of pneumoperitoneum or free fluid. Fat stranding changes in t he omentum. VASCULATURE: No evidence of aortic aneurysm. MUSCULOSKELETAL: No acute osseous abnormalities LYMPH NODES: No gross evidence for lymphadenopathy. SOFT TISSUE/ABDOMINAL WALL: Unremarkable IMPRESSION: 1. Inflammation changes around the left kidney left ureteral stent in place. No ureteral calculi vis ualized lung the course of the stent. There remains mild to moderate hydronephrosis. Correlate for as cending cholangitis. 2. Colonic diverticulosis. 3. Nonspecific nodularity/fat stranding changes in the omentum given patient's history of cancer hig hly omental caking not excluded. Continued surveillance recommended.
[2023-09-05] MEDS ORDERED: VANCOMYCIN IV PER PHARMACY 1 EACH MISC MISCELLANE PRN (14:26)
[2023-09-05] MEDS: MORPHINE SULFATE 4 MG/ML SYRINGE IVP STA (14:59)
[2023-09-05] MEDS: SCOPOLAMINE 1 MG/72 HR PATCH TRANSDERM STA (15:11)
[2023-09-05] MEDS: VANCOMYCIN 1,500 MG in SODIUM CHLORIDE 0.9% 500 ML 500 ML IVPB STA (15:11)
[2023-09-05] MEDS ORDERED: HYDROmorphone 2 MG TAB PO PRN (15:13)
[2023-09-05] MEDS ORDERED: NALOXONE 0.4 MG/ML 1 ML VIAL IV PRN (15:13)
[2023-09-05] MEDS: ONDANSETRON 4 MG/2 ML VIAL IVP PRN (17:13)
[2023-09-05] MEDS: hydrALAZINE HCL 20 MG/ML 1 ML VIAL IVP PRN (17:13)
[2023-09-05] MEDS: HYDROmorphone 1 MG/ML 1 ML SYRINGE IVP PRN (17:35)
[2023-09-05] MEDS: SODIUM CHLORIDE 0.9% 1,000 ML IV SCH (17:37)
[2023-09-05] MEDS: PIPERACILLIN-TAZOBACTAM 3.375 GM in SODIUM CHLORIDE 0.9% 100 ML IVPB SCH (21:34)
[2023-09-06] MEDS: VANCOMYCIN 1,500 MG in SODIUM CHLORIDE 0.9% 500 ML 500 ML IVPB SCH (04:59)
[2023-09-06 09:17] LABS: HCT 30.4 % (37.2-46.3); HGB 9.6 g/dL (12.0-15.0); MCH 30.5 pg (27.0-32.0); MCHC 31.6 g/dL (32.0-37.0); MCV 96.5 FL (80.0-97.0); Mean Platelet Volume 11.2 FL (9.5-12.2); NRBC Per 100 WBC 0 X 10*3/uL (0.00-0.01); Platelet Count 158 X 10*3/uL (140-440); RBC 3.15 X 10*6/uL (4.10-5.20); RDW 14.4 % (11.5-14.5); WBC 21.49 X 10*3/uL (4.50-10.00)
[2023-09-06 09:42] LABS: ALT 18 U/L (8-44); AST 45 U/L (13-35); Albumin 2.8 g/dL (3.8-4.9); Alkaline Phosphatase 56 U/L (41-126); BUN/Creat Ratio 17.18 Ratio (12.00-20.00); Blood Urea Nitrogen 29.2 mg/dL (9.0-27.0); Carbon Dioxide 17.7 mmol/L (21.6-31.8); Chloride 111 mmol/L (96-109); Glucose 115 mg/dL (70-110); Potassium 4.4 mmol/L (3.5-5.5); Sodium 139 mmol/L (135-145); Total Bilirubin 0.3 mg/dL (0.3-1.2); Total Protein 4.8 g/dL (6.2-8.2)
[2023-09-06 09:50] LABS: Basophils # (A) 0.07 X 10*3/uL (0.00-0.10); Basophils % (A) 0.3 %; Eosinophils # (A) 0.08 X 10*3/uL (0.04-0.35); Eosinophils % (A) 0.4 %; Lymphocytes # (A) 0.83 X 10*3/uL (0.90-5.00); Lymphocytes % (A) 3.9 %; Monocytes # (A) 1.11 X 10*3/uL (0.20-1.00); Monocytes % (A) 5.2 %; Neutrophils # (A) 19.13 X 10*3/uL (1.80-7.70); Neutrophils % (A) 88.9 %
[2023-09-06 09:51] LABS: RBC Morphology Normal (Normal)
[2023-09-06] MEDS ORDERED: diazePAM 2 MG TAB PO PRN (13:30)
[2023-09-06] MEDS: DULoxetine HCL 60 MG CAPSULE.DR PO SCH (14:26)
[2023-09-06] MEDS: CYANOCOBALAMIN 500 MCG TAB PO SCH (14:26)
[2023-09-06] MEDS: TAMOXIFEN 10 MG TAB PO SCH (14:26)
[2023-09-06] MEDS: METOPROLOL SUCCINATE (ER) 25 MG TAB.ER.24H PO SCH (14:26)
[2023-09-06] MEDS: ASCORBIC ACID 500 MG TAB PO SCH (14:26)
[2023-09-06] MEDS: MULTIVITAMINS, THERA 1 EACH TAB PO SCH (14:26)
--- NOTE | 2023-09-06 16:31 | P.HPIM ---
History of Present Illness H&P Date: 09/06/23 History of present illness; 68-year old female with past medical history significant for metastatic colon cancer on current chemotherapy followed by oncology, history of ureteral stent who presented to ER with complaint of left-sided flank pain hematuria, nausea and vomiting. Patient stated that she was not feeling generally well for about a week but on Thursday patient started to have excruciating left-sided flank pain associated with blood in the urine and patient also had associated nausea and vomiting. Patient also reported feeling feverish at home chills and rigors. Patient reports suprapubic abdominal pain, radiating to left flank in the ED. Patient denied any abdominal pain, dysuria, urgency, frequency, weakness or numbness of extremities, shortness of breath, chest pain, palpitation, sore throat, productive cough, headache, vision changes. Patient had a fever of 100.4, tachycardic with heart rate 116, respiratory rate 17, blood pressure was elevated 213/102 on presentation, was saturating 94% on room air. WBCs 16.6, hemoglobin 12.0, platelet 230. Absolute neutrophils 14.8 On presentation. BMP showed normal creatinine 0.76. UA was positive for more than 182 WBCs, large leukocyte Estrace and bacteria. CT abdomen showed inflammatory changes around the left kidney and ureter with stent in place, no ureteral calculi visualized along the course of stent , Mild to moderate hydronephrosis on the left, correlate for ascending infection. Initial workup done in the ER showed REVIEW OF SYSTEMS: CONSTITUTIONAL: No fever, no malaise, no fatigue. HEENT: No recent visual problems or hearing problems. Denied any sore throat. CARDIOVASCULAR: No chest pain, orthopnea, PND, no palpitations, no syncope. PULMONARY: No shortness of breath, no cough, no hemoptysis. GASTROINTESTINAL: No diarrhea, no nausea, no vomiting, no abdominal pain. NEUROLOGICAL: No headaches, no weakness, no numbness. HEMATOLOGICAL: Denies any bleeding or petechiae. GENITOURINARY: Denies any burning micturition, frequency, or urgency. MUSCULOSKELETAL/RHEUMATOLOGICAL: Denies any joint pain, swelling, or any muscle pain. ENDOCRINE: Denies any polyuria or polydipsia. The rest of the 14-point review of systems is negative. PHYSICAL EXAMINATION: GENERAL: The patient is alert and oriented x3, not in any acute distress. Well developed, well nourished. HEENT: Pupils are round and equally reacting to light. EOMI. No scleral icterus. No conjunctival pallor. Normocephalic, atraumatic. No pharyngeal erythema. No thyromegaly. CARDIOVASCULAR: S1 and S2 present. No murmurs, rubs, or gallops. PULMONARY: Chest is clear to auscultation, no wheezing or crackles. ABDOMEN: Soft, nontender, nondistended, normoactive bowel sounds. No palpable organomegaly. MUSCULOSKELETAL: No joint swelling or deformity. EXTREMITIES: No cyanosis, clubbing, or pedal edema. NEUROLOGICAL: Gross neurological examination did not reveal any focal deficits. SKIN: No rashes. Assessment and plan Sepsis: Acute left pyelonephritis: History of left ureteral stent: Proteus bacteremia: History of metastatic colon cancer: Undergoing chemotherapy. RUKHSAAN: Presented with left flank pain, nausea, vomiting, fevers Elevated WBCs, fever of 100.4, tachycardic on presentation. CT abdomen pelvis showed inflammatory changes around left kidney and ureter with stent in place, mild to moderate hydronephrosis on the left. Blood culture positive for Proteus. Continue Rocephin. IV fluids Monitor renal function Urology consulted Infectious disease consulted. Hypertension: Continue metoprolol Hold valsartan due to RUKHSANA. As needed IV hydralazine. DVT prophylaxis. SCD--no prophylactic anticoagulation due to hematuria. Monitor vital signs Monitor CBC Monitor CMP Continue telemetry monitoring Labs and medication were reviewed.. Continue same treatment. Continue with symptomatic treatment. Resume home medication. Monitor labs and vitals. Further recommendations as per clinical course of the patient Dictation was produced using [employer] book dictation software. please excuse any grammatical, word or spelling errors. Past Medical History Past Medical History: Cancer, Hypertension, Osteoarthritis (OA), Pneumonia, Renal Disease Additional Past Medical History / Comment(s): LT BREAST CANCER, colon cancer stage II-METS TO OVARIES, METS to both lungs. Currently on chemo (09/05/23), History of Any Multi-Drug Resistant Organisms: None Reported Past Surgical History: Bowel Resection, Breast Surgery, Cholecystectomy, Hysterectomy Additional Past Surgical History / Comment(s): LT BREAST LUMPECTOMY-RADIATION, COLONOSCOPY, HAS PORT A CATH, left ureteral stent. Past Anesthesia/Blood Transfusion Reactions: No Reported Reaction Additional Past Anesthesia/Blood Transfusion Reaction / Comment(s): No problems with previous blood transfusion. Past Psychological History: Depression Smoking Status: Former smoker Past Alcohol Use History: Occasional Additional Past Alcohol Use History / Comment(s): STARTED SMOKING AT AGE 20 quit December 2017. Past Drug Use History: None Reported - Past Family History Mother Family Medical History: COPD, Dementia Father Family Medical History: AFIB, Cancer Additional Family Medical History / Comment(s): Lung cancer. Sister(s) Family Medical History: Cancer Additional Family Medical History / Comment(s): VOCAL CORD CANCER Medications and Allergies Home Medications Medication Instructions Recorded Confirmed Type Multivitamins, Thera [Multivitamin 1 tab PO DAILY 07/10/17 09/05/23 History (formulary)] Tamoxifen Citrate 20 mg PO DAILY 12/16/17 09/05/23 History Cholecalciferol [Vitamin D3 (25 50 mcg PO DAILY 05/02/20 09/05/23 History Mcg = 1000 Iu)] Cyanocobalamin [Vitamin B-12] 1,000 mcg PO DAILY 05/02/20 09/05/23 History Ascorbic Acid [Vitamin C] 1,000 mg PO DAILY 06/05/22 09/05/23 History Cetuximab [Erbitux] 1 dose IV Q7D 09/04/22 09/05/23 History Prochlorperazine Maleate 10 mg PO Q6H PRN 09/04/22 09/05/23 History Valsartan 320 mg PO DAILY 09/04/22 09/05/23 History Metoprolol Succinate (ER) [Toprol 100 mg PO DAILY 07/02/23 09/05/23 History Xl] Vitamin E (Dl,Tocopheryl Acet) 400 unit PO DAILY 07/02/23 09/05/23 History [Vitamin E (400 Iu = 180 mg)] Betamethasone Dipropionate 1 applic TOPICAL DAILY PRN 09/05/23 09/05/23 History [Betamethasone Dipropionate 0.05% Cream] DULoxetine HCL [Cymbalta] 60 mg PO Q48H 09/05/23 09/05/23 History Encorafenib [Braftovi] 300 mg PO DIRECTED 09/05/23 09/05/23 History Metoprolol Succinate (ER) [Toprol 25 mg PO DAILY 09/05/23 09/05/23 History Xl] diazePAM [Valium] 1 mg PO TID PRN 09/05/23 09/05/23 History Allergies Allergy/AdvReac Type Severity Reaction Status Date / Time No Known Allergies Allergy Verified 09/05/23 15:21 Physical Exam Vitals: Vital Signs Temp Pulse Resp BP Pulse Ox 09/06/23 13:28 99.5 F 107 H 16 138/89 93 L 09/06/23 06:51 98.9 F 90 17 117/79 91 L 09/06/23 01:14 98.5 F 83 18 91/52 94 L 09/05/23 22:10 94 20 09/05/23 20:02 100.4 F H 94 20 96/61 94 L 09/05/23 18:13 98 124/79 93 L Intake and Output 09/06/23 09/06/23 09/06/23 06:59 14:59 22:59 Other: Voiding Method Toilet # Voids 1 Results CBC & Chem 7: 09/06/23 04:20 09/06/23 04:20 Labs: Abnormal Lab Results - Last 24 Hours (Table) 09/06/23 09/06/23 Range/Units 04:20 04:20 WBC 21.49 H (4.50-10.00) X 10*3/uL RBC 3.15 L (4.10-5.20) X 10*6/uL Hgb 9.6 L (12.0-15.0) g/dL Hct 30.4 L (37.2-46.3) % MCHC 31.6 L (32.0-37.0) g/dL Immature Gran # 0.27 H (0.00-0.04) X 10*3/uL Neutrophils # 19.13 H (1.80-7.70) X 10*3/uL Lymphocytes # 0.83 L (0.90-5.00) X 10*3/uL Monocytes # 1.11 H (0.20-1.00) X 10*3/uL Chloride 111 H (96-109) mmol/L Carbon Dioxide 17.7 L (21.6-31.8) mmol/L BUN 29.2 H (9.0-27.0) mg/dL Creatinine 1.7 H (0.6-1.5) mg/dL Est GFR (CKD-EPI) 32 L (>=60) Glucose 115 H (70-110) mg/dL Calcium 8.0 L (8.7-10.3) mg/dL AST 45 H (13-35) U/L Total Protein 4.8 L (6.2-8.2) g/dL Albumin 2.8 L (3.8-4.9) g/dL Albumin/Globulin Ratio 1.40 L (1.60-3.17) Ratio Microbiology - Last 24 Hours (Table) 09/05/23 15:00 Blood Culture Gram Stain - Preliminary Blood Blood Culture - Preliminary Molecular ID 09/05/23 14:50 Blood Culture Gram Stain - Preliminary Blood Thrombosis Risk Factor Assmnt - Choose All That Apply Any of the Below Risk Factors Present?: Yes Each Factor Represents 1 point: Obesity (BMI >25) Other Risk Factors: Yes Each Risk Factor Represents 2 Points: Age 61-74 years Other congenital or acquired thrombophilia - If yes, enter type in comment: No Thrombosis Risk Factor Assessment Total Risk Factor Score: 3 Thrombosis Risk Factor Assessment Level: Moderate Risk
--- NOTE | 2023-09-06 20:54 | P.CONS ---
History of Present Illness - Reason for Consult Consult date: 09/06/23 Proteus bacteremia Requesting physician: Ronny Grider - Chief Complaint Left flank pain X 1 day - History of Present Illness Patient is a 68-year-old female with a past medical history significant for hypertension osteoarthritis metastatic colon cancer last chemo was 09/05/2023 history of left breast cancer patient also have a left ureteral stent placement for hydronephrosis presenting today via concerning for left- sided flank pain and hematuria nausea and vomiting patient symptoms started the day of presentation to the hospital patient also complaining of pain to the left flank area patient describing the pain to be sharp moderate intensity without an y radiation did have nausea and vomiting denies significant burning or frequency of urine no headache or URI symptoms no chest pain shortness of breath or cough on presentation to the hospital the patient was febrile subsequent spike a fever of 100.4 F patient was tachycardic but not hypotensive or hypoxic and no need for supplemental oxygen she did have white count of 16.6 which is up to 21.49 d id have elevated BUN and creatinine AST elevated urine was positive blood cultures came back positive gram-negative bacilli patient currently on vancomycin and Zosyn infectious disease was consulted for further management of antibiotic therapy Review of Systems Positive point and negatives has been mentioned in the HPI, complete review of systems was performed and all other systems are negative Past Medical History Past Medical History: Cancer, Hypertension, Osteoarthritis (OA), Pneumonia, Renal Disease Additional Past Medical History / Comment(s): LT BREAST CANCER, colon cancer stage II-METS TO OVARIES, METS to both lungs. Currently on chemo (09/05/23), History of Any Multi-Drug Resistant Organisms: None Reported Past Surgical History: Bowel Resection, Breast Surgery, Cholecystectomy, Hysterectomy Additional Past Surgical History / Comment(s): LT BREAST LUMPECTOMY-RADIATION, COLONOSCOPY, HAS PORT A CATH, left ureteral stent. Past Anesthesia/Blood Transfusion Reactions: No Reported Reaction Additional Past Anesthesia/Blood Transfusion Reaction / Comm: No problems with previous blood transfusion. Past Psychological History: Depression Smoking Status: Former smoker Past Alcohol Use History: Occasional Additional Past Alcohol Use History / Comment(s): STARTED SMOKING AT AGE 20 quit December 2017. Past Drug Use History: None Reported - Past Family History Mother Family Medical History: COPD, Dementia Father Family Medical History: AFIB, Cancer Additional Family Medical History / Comment(s): Lung cancer. Sister(s) Family Medical History: Cancer Additional Family Medical History / Comment(s): VOCAL CORD CANCER Medications and Allergies Home Medications Medication Instructions Recorded Confirmed Type Multivitamins, Thera [Multivitamin 1 tab PO DAILY 07/10/17 09/05/23 History (formulary)] Tamoxifen Citrate 20 mg PO DAILY 12/16/17 09/05/23 History Cholecalciferol [Vitamin D3 (25 50 mcg PO DAILY 05/02/20 09/05/23 History Mcg = 1000 Iu)] Cyanocobalamin [Vitamin B-12] 1,000 mcg PO DAILY 05/02/20 09/05/23 History Ascorbic Acid [Vitamin C] 1,000 mg PO DAILY 06/05/22 09/05/23 History Cetuximab [Erbitux] 1 dose IV Q7D 09/04/22 09/05/23 History Prochlorperazine Maleate 10 mg PO Q6H PRN 09/04/22 09/05/23 History Valsartan 320 mg PO DAILY 09/04/22 09/05/23 History Metoprolol Succinate (ER) [Toprol 100 mg PO DAILY 07/02/23 09/05/23 History Xl] Vitamin E (Dl,Tocopheryl Acet) 400 unit PO DAILY 07/02/23 09/05/23 History [Vitamin E (400 Iu = 180 mg)] Betamethasone Dipropionate 1 applic TOPICAL DAILY PRN 09/05/23 09/05/23 History [Betamethasone Dipropionate 0.05% Cream] DULoxetine HCL [Cymbalta] 60 mg PO Q48H 09/05/23 09/05/23 History Encorafenib [Braftovi] 300 mg PO DIRECTED 09/05/23 09/05/23 History Metoprolol Succinate (ER) [Toprol 25 mg PO DAILY 09/05/23 09/05/23 History Xl] diazePAM [Valium] 1 mg PO TID PRN 09/05/23 09/05/23 History Allergies Allergy/AdvReac Type Severity Reaction Status Date / Time No Known Allergies Allergy Verified 09/05/23 15:21 Physical Exam Vitals: Vital Signs Temp Pulse Pulse Resp BP BP Pulse Ox 09/06/23 06:51 98.9 F 90 17 117/79 91 L 09/06/23 01:14 98.5 F 83 18 91/52 94 L 09/05/23 22:10 94 20 09/05/23 20:02 100.4 F H 94 20 96/61 94 L 09/05/23 18:13 98 124/79 93 L 09/05/23 16:23 216/84 09/05/23 16:21 97.7 F 116 H 17 213/102 94 L 09/05/23 16:00 94 18 166/84 94 L 09/05/23 15:05 90 18 169/93 96 09/05/23 11:42 98.5 F 92 18 151/91 98 Intake and Output 09/05/23 09/06/23 09/06/23 22:59 06:59 14:59 Other: Voiding Method Toilet # Voids 1 Weight 88.451 kg GENERAL DESCRIPTION: Elderly female lying in bed, no distress. No tachypnea or accessory muscle of respiration use. HEENT: Shows Pallor , no scleral icterus. Oral mucous membrane is dry. No pharyngeal erythema or thrush NECK: Trachea central, no thyromegaly. LUNGS: Unlabored breathing. Clear to auscultation anteriorly. No wheeze or crackle. HEART: S1, S2, regular rate and rhythm. No loud murmur ABDOMEN: Soft, no tenderness , guarding or rigidity, no organomegaly EXTREMITIES: No edema of feet. SKIN: No rash, no masses palpable. NEUROLOGICAL: The patient is awake, alert, oriented x3, mood and affect normal. Results CBC & Chem 7: 09/06/23 04:20 09/07/23 03:40 Labs: Abnormal Lab Results - Last 24 Hours (Table) 09/05/23 09/05/23 09/05/23 Range/Units 12:12 12:12 12:12 WBC 16.6 H (3.8-10.6) k/uL RBC (4.10-5.20) X 10*6/uL Hgb (12.0-15.0) g/dL Hct (37.2-46.3) % MCHC (32.0-37.0) g/dL Immature Gran # (0.00-0.04) X 10*3/uL Neutrophils # 14.8 H (1.3-7.7) k/uL Lymphocytes # 0.8 L (1.0-4.8) k/uL Monocytes # (0.20-1.00) X 10*3/uL Chloride 113 H (98-107) mmol/L Carbon Dioxide 17 L (22-30) mmol/L BUN 24 H (7-17) mg/dL Creatinine (0.6-1.5) mg/dL Est GFR (CKD-EPI) (>=60) Glucose 139 H (74-99) mg/dL Calcium (8.7-10.3) mg/dL AST (13-35) U/L Total Protein (6.2-8.2) g/dL Albumin 3.4 L (3.5-5.0) g/dL Albumin/Globulin Ratio (1.60-3.17) Ratio Urine Appearance Cloudy H (Clear) Urine Protein 1+ H (Negative) Urine Glucose (UA) Trace H (Negative) Urine Blood Large H (Negative) Urine Nitrite Positive H (Negative) Ur Leukocyte Esterase Large H (Negative) Urine RBC 45 H (0-5) /hpf Urine WBC >182 H (0-5) /hpf Urine WBC Clumps Few H (None) /hpf Urine Bacteria Occasional H (None) /hpf Urine Mucus Occasional H (None) /hpf 09/06/23 09/06/23 Range/Units 04:20 04:20 WBC 21.49 H (3.8-10.6) k/uL RBC 3.15 L (4.10-5.20) X 10*6/uL Hgb 9.6 L (12.0-15.0) g/dL Hct 30.4 L (37.2-46.3) % MCHC 31.6 L (32.0-37.0) g/dL Immature Gran # 0.27 H (0.00-0.04) X 10*3/uL Neutrophils # 19.13 H (1.3-7.7) k/uL Lymphocytes # 0.83 L (1.0-4.8) k/uL Monocytes # 1.11 H (0.20-1.00) X 10*3/uL Chloride 111 H (98-107) mmol/L Carbon Dioxide 17.7 L (22-30) mmol/L BUN 29.2 H (7-17) mg/dL Creatinine 1.7 H (0.6-1.5) mg/dL Est GFR (CKD-EPI) 32 L (>=60) Glucose 115 H (74-99) mg/dL Calcium 8.0 L (8.7-10.3) mg/dL AST 45 H (13-35) U/L Total Protein 4.8 L (6.2-8.2) g/dL Albumin 2.8 L (3.5-5.0) g/dL Albumin/Globulin Ratio 1.40 L (1.60-3.17) Ratio Urine Appearance (Clear) Urine Protein (Negative) Urine Glucose (UA) (Negative) Urine Blood (Negative) Urine Nitrite (Negative) Ur Leukocyte Esterase (Negative) Urine RBC (0-5) /hpf Urine WBC (0-5) /hpf Urine WBC Clumps (None) /hpf Urine Bacteria (None) /hpf Urine Mucus (None) /hpf Microbiology - Last 24 Hours (Table) 09/05/23 15:00 Blood Culture Gram Stain - Preliminary Blood Blood Culture - Preliminary Molecular ID 09/05/23 14:50 Blood Culture Gram Stain - Preliminary Blood Assessment and Plan (1) Bacteremia Current Visit: Yes Status: Acute Code(s): R78.81 - BACTEREMIA SNOMED Code(s): 0466129 (2) Pyelonephritis Current Visit: Yes Status: Acute Code(s): N12 - TUBULO-INTERSTITIAL NEPHRITIS, NOT SPCF ACUTE OR CHRONIC SNOMED Code(s): 46672621 (3) Sepsis Current Visit: Yes Status: Acute Code(s): A41.9 - SEPSIS, UNSPECIFIED ORGANISM SNOMED Code(s): 37990778 Plan: 1patient presented hospital with sepsis in this patient who did have fever tachycardia elevated white count source and likely left-sided pyelonephritis possible complicated UTI as patient did have a history of obstructed kidney requiring ureteral stent placement 9 months ago. 2gram-negative bacteremia source likely left-sided pyelonephritis. 3discontinue vancomycin and Zosyn. 4Rocephin 2 g daily as the organism is sensitive to it. We will follow on clinical condition and cultures to further adjust medication if needed Thank you for this consultation we will follow the patient along with you Dictation was produced using [employer] dictation software. please excuse any grammatical, word or spelling errors. Time with Patient: Greater than 30
[2023-09-07 04:29] LABS: ALT 22 U/L (4-34); AST 52 U/L (14-36); African American GFR (CKD) 61 (>60 ml/min/1.73 sqM); Albumin 2.3 g/dL (3.5-5.0); Alkaline Phosphatase 72 U/L (38-126); Anion Gap 8 mmol/L; Blood Urea Nitrogen 29 mg/dL (7-17); Calcium 8.5 mg/dL (8.4-10.2); Carbon Dioxide 13 mmol/L (22-30); Chloride 112 mmol/L (98-107); Globulin 2.3 g/dL; Glucose 95 mg/dL (74-99); Non-African American GFR(CKD) 53 (>60 ml/min/1.73 sqM); Potassium 3.9 mmol/L (3.5-5.1); Sodium 133 mmol/L (137-145); Total Bilirubin 0.2 mg/dL (0.2-1.3); Total Protein 4.6 g/dL (6.3-8.2)
--- NOTE | 2023-09-07 06:50 | P.GSCN ---
History of Present Illness Consult date: 09/06/23 Reason for Consult: UTI, Left Hydronephrosis Requesting physician: Ronny Grider History of present illness: The patient is a 68-year-old white female with a history of multiple malignancies, including breast and colon cancer. She is now receiving systemic chemotherapy. She was found earlier this year to have left hydroureteronephrosis. She underwent cystoscopy with left ureteral stent insertion on 07/16/2022. At that time, she was found to have a left distal ureteral stricture, which was opened with balloon dilation. CT scan in August showed interval development of right hydronephrosis. A right retrograde pyelogram at that time showed no evidence of right hydronephrosis. She underwent left ureteral stent change most recently on 07/30/2023. She now presents with nausea, vomiting, gross hematuria, and left flank pain radiating to the suprapubic region. Onset of symptoms was early last week, but her s ymptoms have worsened in the past several days. She has a low-grade fever. Urine and blood cultures have been sent. Preliminary blood culture shows gram- negative bacilli, likely Proteus mirabilis. She is receiving Rocephin and vancomycin. Review of Systems - Constitutional Reports fever - Gastrointestinal Reports nausea, Reports vomiting - Genitourinary Genitourinary: Reports flank pain, Reports hematuria Past Medical History Past Medical History: Cancer, Hypertension, Osteoarthritis (OA), Pneumonia, Renal Disease Additional Past Medical History / Comment(s): LT BREAST CANCER, colon cancer stage II-METS TO OVARIES, METS to both lungs. Currently on chemo (09/05/23), History of Any Multi-Drug Resistant Organisms: None Reported Past Surgical History: Bowel Resection, Breast Surgery, Cholecystectomy, Hysterectomy Additional Past Surgical History / Comment(s): LT BREAST LUMPECTOMY-RADIATION, COLONOSCOPY, HAS PORT A CATH, left ureteral stent. Past Anesthesia/Blood Transfusion Reactions: No Reported Reaction Additional Past Anesthesia/Blood Transfusion Reaction / Comm: No problems with previous blood transfusion. Past Psychological History: Depression Smoking Status: Former smoker Past Alcohol Use History: Occasional Additional Past Alcohol Use History / Comment(s): STARTED SMOKING AT AGE 20 quit December 2017. Past Drug Use History: None Reported - Past Family History Mother Family Medical History: COPD, Dementia Father Family Medical History: AFIB, Cancer Additional Family Medical History / Comment(s): Lung cancer. Sister(s) Family Medical History: Cancer Additional Family Medical History / Comment(s): VOCAL CORD CANCER Medications and Allergies Home Medications Medication Instructions Recorded Confirmed Type Multivitamins, Thera [Multivitamin 1 tab PO DAILY 07/10/17 09/05/23 History (formulary)] Tamoxifen Citrate 20 mg PO DAILY 12/16/17 09/05/23 History Cholecalciferol [Vitamin D3 (25 50 mcg PO DAILY 05/02/20 09/05/23 History Mcg = 1000 Iu)] Cyanocobalamin [Vitamin B-12] 1,000 mcg PO DAILY 05/02/20 09/05/23 History Ascorbic Acid [Vitamin C] 1,000 mg PO DAILY 06/05/22 09/05/23 History Cetuximab [Erbitux] 1 dose IV Q7D 09/04/22 09/05/23 History Prochlorperazine Maleate 10 mg PO Q6H PRN 09/04/22 09/05/23 History Valsartan 320 mg PO DAILY 09/04/22 09/05/23 History Metoprolol Succinate (ER) [Toprol 100 mg PO DAILY 07/02/23 09/05/23 History Xl] Vitamin E (Dl,Tocopheryl Acet) 400 unit PO DAILY 07/02/23 09/05/23 History [Vitamin E (400 Iu = 180 mg)] Betamethasone Dipropionate 1 applic TOPICAL DAILY PRN 09/05/23 09/05/23 History [Betamethasone Dipropionate 0.05% Cream] DULoxetine HCL [Cymbalta] 60 mg PO Q48H 09/05/23 09/05/23 History Encorafenib [Braftovi] 300 mg PO DIRECTED 09/05/23 09/05/23 History Metoprolol Succinate (ER) [Toprol 25 mg PO DAILY 09/05/23 09/05/23 History Xl] diazePAM [Valium] 1 mg PO TID PRN 09/05/23 09/05/23 History Allergies Allergy/AdvReac Type Severity Reaction Status Date / Time No Known Allergies Allergy Verified 09/05/23 15:21 Surgical - Exam Vital Signs Temp Pulse Resp BP Pulse Ox 98.5 F 92 18 151/91 98 09/05/23 11:42 09/05/23 11:42 09/05/23 11:42 09/05/23 11:42 09/05/23 11:42 - General well developed, well nourished, no distress - Respiratory normal respiratory effort - Abdomen Abdomen: soft, tender (Mild suprapubic/LLQ tenderness), no guarding, no rigid, no rebound - Psychiatric oriented to time, oriented to person, oriented to place, speech is normal, memory intact Results - Labs 09/06/23 04:20 09/07/23 03:40 Abnormal Lab Results - Last 24 Hours (Table) 09/05/23 09/05/23 09/05/23 Range/Units 12:12 12:12 12:12 WBC 16.6 H (3.8-10.6) k/uL RBC (4.10-5.20) X 10*6/uL Hgb (12.0-15.0) g/dL Hct (37.2-46.3) % MCHC (32.0-37.0) g/dL Immature Gran # (0.00-0.04) X 10*3/uL Neutrophils # 14.8 H (1.3-7.7) k/uL Lymphocytes # 0.8 L (1.0-4.8) k/uL Monocytes # (0.20-1.00) X 10*3/uL Chloride 113 H (98-107) mmol/L Carbon Dioxide 17 L (22-30) mmol/L BUN 24 H (7-17) mg/dL Creatinine (0.6-1.5) mg/dL Est GFR (CKD-EPI) (>=60) Glucose 139 H (74-99) mg/dL Calcium (8.7-10.3) mg/dL AST (13-35) U/L Total Protein (6.2-8.2) g/dL Albumin 3.4 L (3.5-5.0) g/dL Albumin/Globulin Ratio (1.60-3.17) Ratio Urine Appearance Cloudy H (Clear) Urine Protein 1+ H (Negative) Urine Glucose (UA) Trace H (Negative) Urine Blood Large H (Negative) Urine Nitrite Positive H (Negative) Ur Leukocyte Esterase Large H (Negative) Urine RBC 45 H (0-5) /hpf Urine WBC >182 H (0-5) /hpf Urine WBC Clumps Few H (None) /hpf Urine Bacteria Occasional H (None) /hpf Urine Mucus Occasional H (None) /hpf 09/06/23 09/06/23 Range/Units 04:20 04:20 WBC 21.49 H (3.8-10.6) k/uL RBC 3.15 L (4.10-5.20) X 10*6/uL Hgb 9.6 L (12.0-15.0) g/dL Hct 30.4 L (37.2-46.3) % MCHC 31.6 L (32.0-37.0) g/dL Immature Gran # 0.27 H (0.00-0.04) X 10*3/uL Neutrophils # 19.13 H (1.3-7.7) k/uL Lymphocytes # 0.83 L (1.0-4.8) k/uL Monocytes # 1.11 H (0.20-1.00) X 10*3/uL Chloride 111 H (98-107) mmol/L Carbon Dioxide 17.7 L (22-30) mmol/L BUN 29.2 H (7-17) mg/dL Creatinine 1.7 H (0.6-1.5) mg/dL Est GFR (CKD-EPI) 32 L (>=60) Glucose 115 H (74-99) mg/dL Calcium 8.0 L (8.7-10.3) mg/dL AST 45 H (13-35) U/L Total Protein 4.8 L (6.2-8.2) g/dL Albumin 2.8 L (3.5-5.0) g/dL Albumin/Globulin Ratio 1.40 L (1.60-3.17) Ratio Urine Appearance (Clear) Urine Protein (Negative) Urine Glucose (UA) (Negative) Urine Blood (Negative) Urine Nitrite (Negative) Ur Leukocyte Esterase (Negative) Urine RBC (0-5) /hpf Urine WBC (0-5) /hpf Urine WBC Clumps (None) /hpf Urine Bacteria (None) /hpf Urine Mucus (None) /hpf Microbiology - Last 24 Hours (Table) 09/05/23 15:00 Blood Culture Gram Stain - Preliminary Blood Blood Culture - Preliminary Molecular ID 09/05/23 14:50 Blood Culture Gram Stain - Preliminary Blood Diabetes panel 09/05/23 09/06/23 Range/Units 12:12 04:20 Sodium 137 139 (137-145) mmol/L Potassium 4.0 4.4 (3.5-5.1) mmol/L Chloride 113 H 111 H (98-107) mmol/L Carbon Dioxide 17 L 17.7 L (22-30) mmol/L BUN 24 H 29.2 H (7-17) mg/dL Creatinine 0.76 1.7 H (0.52-1.04) mg/dL Glucose 139 H 115 H (74-99) mg/dL Calcium 9.0 8.0 L (8.4-10.2) mg/dL AST 20 45 H (14-36) U/L ALT 16 18 (4-34) U/L Alkaline Phosphatase 88 56 (38-126) U/L Total Protein 6.4 4.8 L (6.3-8.2) g/dL Albumin 3.4 L 2.8 L (3.5-5.0) g/dL Calcium panel 09/05/23 09/06/23 Range/Units 12:12 04:20 Calcium 9.0 8.0 L (8.4-10.2) mg/dL Albumin 3.4 L 2.8 L (3.5-5.0) g/dL Pituitary panel 09/05/23 09/06/23 Range/Units 12:12 04:20 Sodium 137 139 (137-145) mmol/L Potassium 4.0 4.4 (3.5-5.1) mmol/L Chloride 113 H 111 H (98-107) mmol/L Carbon Dioxide 17 L 17.7 L (22-30) mmol/L BUN 24 H 29.2 H (7-17) mg/dL Creatinine 0.76 1.7 H (0.52-1.04) mg/dL Glucose 139 H 115 H (74-99) mg/dL Calcium 9.0 8.0 L (8.4-10.2) mg/dL Adrenal panel 09/05/23 09/06/23 Range/Units 12:12 04:20 Sodium 137 139 (137-145) mmol/L Potassium 4.0 4.4 (3.5-5.1) mmol/L Chloride 113 H 111 H (98-107) mmol/L Carbon Dioxide 17 L 17.7 L (22-30) mmol/L BUN 24 H 29.2 H (7-17) mg/dL Creatinine 0.76 1.7 H (0.52-1.04) mg/dL Glucose 139 H 115 H (74-99) mg/dL Calcium 9.0 8.0 L (8.4-10.2) mg/dL Total Bilirubin 0.5 0.3 (0.2-1.3) mg/dL AST 20 45 H (14-36) U/L ALT 16 18 (4-34) U/L Alkaline Phosphatase 88 56 (38-126) U/L Total Protein 6.4 4.8 L (6.3-8.2) g/dL Albumin 3.4 L 2.8 L (3.5-5.0) g/dL - Imaging CT scan - abdomen: report reviewed, image reviewed Assessment and Plan (1) Hydronephrosis with ureteral stricture, not elsewhere classified Current Visit: No Status: Acute Code(s): N13.1 - HYDRONEPHROSIS W URETERAL STRICTURE, NEC SNOMED Code(s): 42162547 (2) UTI (urinary tract infection) Current Visit: No Status: Acute Code(s): N39.0 - URINARY TRACT INFECTION, SITE NOT SPECIFIED SNOMED Code(s): 41059030 Plan: I have reviewed the CT scan. Left perinephric stranding is likely the result of acute left pyelonephritis. The left ureteral stent which was placed last month is properly positioned. There remains mild to moderate left hydronephrosis, but given that the stent is properly positioned and was changed 1 month ago I do not feel that a stent change is warranted. I would recommend continuing broad- spectrum antibiotics until the cultures are complete. Time with Patient: Greater than 30
--- NOTE | 2023-09-07 08:26 | US ---
EXAMINATION TYPE: US renals and bladder DATE OF EXAM: 09/07/2023 COMPARISON: 09/05/23 CLINICAL INDICATION: Female, 68 years old with history of Hydronephrosis; LT hydro EXAM MEASUREMENTS: Right Kidney: 10.5x4.8x5.7 cm Left Kidney: 11.7x6.1x5.8 cm Right Kidney: No hydronephrosis or masses seen Left Kidney: mild hydro Bladder: wnl, not fully distended Bilateral Jets seen: Yes No nephrolithiasis is seen. No masses are identified. The urinary bladder is anechoic. Bilateral u reteral jets are seen. exam limited by bowel and body habitus IMPRESSION: Mild left-sided hydronephrosis of uncertain etiology.
[2023-09-07 09:13] LABS: Basophils # (A) 0.03 X 10*3/uL (0.00-0.10); Basophils % (A) 0.2 %; Eosinophils # (A) 0.02 X 10*3/uL (0.04-0.35); Eosinophils % (A) 0.1 %; HCT 26.6 % (37.2-46.3); HGB 8.6 g/dL (12.0-15.0); Lymphocytes # (A) 1.07 X 10*3/uL (0.90-5.00); Lymphocytes % (A) 7.1 %; MCHC 32.3 g/dL (32.0-37.0); Mean Platelet Volume 11.6 FL (9.5-12.2); Monocytes # (A) 0.63 X 10*3/uL (0.20-1.00); Monocytes % (A) 4.2 %; NRBC Per 100 WBC 0 X 10*3/uL (0.00-0.01); Neutrophils # (A) 13.18 X 10*3/uL (1.80-7.70); Platelet Count 137 X 10*3/uL (140-440); RBC 2.77 X 10*6/uL (4.10-5.20); RDW 14.6 % (11.5-14.5); WBC 15.14 X 10*3/uL (4.50-10.00)
[2023-09-07] MEDS: CHOLECALCIFEROL 25 MCG (1000 IU) TABLET PO SCH (09:41)
[2023-09-07] MEDS: VALSARTAN 160 MG TAB PO SCH (09:41)
--- NOTE | 2023-09-07 10:33 | P.PN ---
Subjective Progress Note Date: 09/07/23 The patient is in the hospital with a uti with sepsis. She has a known history of a left ureteral stricture. This has been treated with dilation and stent chronically by Dr Dunlap. the last stent change was 1 month ago.She is feeling better. HEr wbc are down and she is afebrile Objective - Vital Signs Vital signs: Vital Signs Temp 98.7 F 09/07/23 07:18 Pulse 105 H 09/07/23 07:18 Resp 17 09/07/23 07:18 BP 113/70 09/07/23 07:18 Pulse Ox 92 L 09/07/23 07:18 FiO2 Intake & Output 09/06/23 09/07/23 09/07/23 18:59 06:59 18:59 Other: Voiding Method Toilet Toilet # Voids 3 2 # Bowel Movements 1 - Labs CBC & Chem 7: 09/07/23 03:40 09/07/23 03:40 Labs: Abnormal Lab Results - Last 24 Hours (Table) 09/07/23 09/07/23 Range/Units 03:40 03:40 WBC 15.14 H (4.50-10.00) X 10*3/uL RBC 2.77 L (4.10-5.20) X 10*6/uL Hgb 8.6 L (12.0-15.0) g/dL Hct 26.6 L (37.2-46.3) % RDW 14.6 H (11.5-14.5) % Plt Count 137 L (140-440) X 10*3/uL Immature Gran # 0.21 H (0.00-0.04) X 10*3/uL Neutrophils # 13.18 H (1.80-7.70) X 10*3/uL Eosinophils # 0.02 L (0.04-0.35) X 10*3/uL Sodium 133 L (137-145) mmol/L Chloride 112 H (98-107) mmol/L Carbon Dioxide 13 L (22-30) mmol/L BUN 29 H (7-17) mg/dL Creatinine 1.08 H (0.52-1.04) mg/dL AST 52 H (14-36) U/L Total Protein 4.6 L (6.3-8.2) g/dL Albumin 2.3 L (3.5-5.0) g/dL Microbiology - Last 24 Hours (Table) 09/05/23 12:12 Urine Culture - Preliminary Urine,Clean Catch Gram Neg Bacilli 09/05/23 15:00 Blood Culture Gram Stain - Preliminary Blood Blood Culture - Preliminary Molecular ID 09/05/23 14:50 Blood Culture Gram Stain - Preliminary Blood Assessment and Plan Assessment: Impression: Uti with sepsis. History of ureteral stricture with a left ureteral stent Plan: from a urologcal standpoint there is nothing further we need to do. She should fu with Dr Dunlap in 2 mos to schedule stent change
[2023-09-07] MEDS: SCOPOLAMINE 1 MG/72 HR PATCH TRANSDERM SCH (15:59)
--- NOTE | 2023-09-07 17:36 | P.PN ---
Subjective Progress Note Date: 09/07/23 HISTORY OF PRESENT ILLNESS: 68-year-old female with past medical history of metastatic colon cancer on chemotherapy, left uretal stricture with stent changed by Dr Dunlap 1 month ago, presented to ER with complaint of left-sided flank pain, hematuria, nausea, and vomiting. Patient states that for the past week she has felt more fatigued than usual but no other symptoms, but on Thursday night patient developed severe left- sided flank pain, hematuria, presented to the ER. Upon presentation to the ER patient had a fever 100.4 was tachycardic with a heart rate of 116 and blood pressure was severely elevated to 213/102. Other blood work included WBC of 16.6, hemoglobin of 12.0, platelet of 230, BUN of 29.2, creatinine 1.7, ED GFR of 32. UA was positive for 182 WBCs large leukocyte esterase, and bacteria. CT abdomen was done at this time demonstrated inflammatory changes around left kidney and ureter with the stent in place, no stones noted, mild to moderate h ydronephrosis of the left kidney. Patient was started on IV fluids and Rocephin. Blood culture was positive for Proteus, urine culture pending. Infectious disease was consulted. Urology was consulted to evaluate stent placement. Over the weekend patient's condition improved, hematuria resolved. Hypertension has significantly improved, patient now slightly hypotensive, valsartan was held for RUKHSANA. 09/07/2023: Patient appears to be doing much better this morning, reports improvement but not complete resolution of left flank pain, no longer having hematuria. Still with some nausea, poor appetite. Still on IV fluids. No events reported overnight, vital signs are stable, afebrile. Urine culture positive for gram-negative bacilli. Lab work from this morning shows decreased white blood cell count now 15.14, hemoglobin 8.6, hematocrit 26.6, platelet 137, potassium 3.9, BUN 29, creatinine 1.08, EGFR 53. Patient was evaluated by urology, per CT scan stent appears to be in place, no further intervention planned on their end, recommending follow-up with Dr. Dunlap in 2 weeks. REVIEW OF SYSTEMS: CONSTITUTIONAL: Well-developed no acute respiratory distress. EYES: No icterus sclerae, no conjunctivitis. EARS, NOSE, MOUTH, THROAT, and FACE: No sore throat, lymphadenopathy, carotid bruits or deformity. RESPIRATORY: No SOB cough or wheezes. CARDIOVASCULAR: No CP, Palpitation, PND, Orthopnea, or angina. GASTROINTESTINAL: Positive nausea. No Abd pain, vomiting, no Diarrhea or constipation, No GI Bleed, no distention or masses. GENITOURINARY: Positive UTI, pyelonephritis, hematuria. Negative kidney stones. INTEGUMENT/BREAST: Negative for any muscular injury with mild osteoarthritis.. HEMATOLOGIC/LYMPHATIC: Negative for bleed or purpura. MUSCULOSKELTAL: Negative for Myalgia or arthralgia. NEURLOGICAL: No LOC, Sz or syncope, blurred vision dizziness or abnormality.. BEHAVIORAL/PSYCH: Negative. ENDOCRINE: Negative. PHYSICAL EXAMINATION: General Appearance: Alert, cooperative, no distress, appears stated age. Neck HEENT: Supple, no lymphadenopathy, no thyroid enlargement, no carotid bruits. Lungs: Clear to auscultation without crackles or wheezes no rhonchi, no deformity. Chest Wall: Chest wall normal expansion with deep inspiration no tenderness and no deformity was found on exam, no costochondral pain or discomfort. Heart: Regular rate and rhythm, S1, S2 normal, no murmur, rub or gallop. Back: Symmetric, no curvature, ROM normal. Positive left CVA tenderness. Abdomen: Soft, non-tender, bowel sounds active all four quadrants, no masses, no organomegaly. Extremities: Extremities normal, atraumatic, no cyanosis or edema. Pulses: 2+ and symmetric. Skin: Skin color, texture, tugor normal, no rashes or lesions. Neurologic: Alert oriented x3 cranial nerves II through XII intact, no motor deficit, no abnormal balance or gait. ASSESSMENT AND PLAN: _Sepsis secondary to acute left pyelonephritis: Started on rocephin, blood culture positive for Proteus, urine culture pending but preliminary demonstrates gram negative bacilli. ID consulted. CT abdomen/pelvis demonstrated hydronephrosis of left kidney. Renal US ordered. WBC 16.6 on admission, now 15.4. Monitor CBC. _Acute kidney injury secondary to pyelonephritis: Creatinine at time of admission was 1.7, now 1.08. Continue IVF, hold nephrotoxic medications. Renal US ordered. Monitor CMP. _History of uretal stricture s/p uretal stent: Stent changed [address] Dunlap. Urology was consulted, CT scan demonstrates appropriately placed stent, no futher intervention required, recommend follow up outpatient in 2 weeks. _Metastatic colon cancer, currently undergoing chemotherapy: Follows with Dr. James outpatient. Holding Braftovi until pyelonephritis resolves. _Hypertension: Maintained on valsartan and metoprolol at home. On admission was severely hypertensive, now hypotensive. Valsartan is held for RUKHSANA, continue m etoprolol, hydralazine IV ordered as needed for hypertension. _Anxiety: continue diazepam as needed. _DVT prophylaxis: on hold due to hematuria. Disposition: Full Code. Discussion: Continue IV antibiotics and IV fluids at this time. Check renal US. No further intervention from urology. Continue to monitor CBC and CMP daily. The patient was seen and evaluated by Dr. Garza. Plan, assessment, and medications were all discussed, reviewed, and directed by Dr. Garza with Woody STAFFORD acting as a scribe. Objective - Vital Signs Vital signs: Vital Signs Temp 98.2 F 09/07/23 13:57 Pulse 99 09/07/23 13:57 Resp 17 09/07/23 13:57 BP 102/64 09/07/23 13:57 Pulse Ox 92 L 09/07/23 13:57 FiO2 Intake & Output 09/06/23 09/07/23 09/07/23 18:59 06:59 18:59 Other: Voiding Method Toilet Toilet # Voids 3 2 # Bowel Movements 1 - Labs CBC & Chem 7: 09/07/23 03:40 09/07/23 03:40 Labs: Abnormal Lab Results - Last 24 Hours (Table) 09/07/23 09/07/23 Range/Units 03:40 03:40 WBC 15.14 H (4.50-10.00) X 10*3/uL RBC 2.77 L (4.10-5.20) X 10*6/uL Hgb 8.6 L (12.0-15.0) g/dL Hct 26.6 L (37.2-46.3) % RDW 14.6 H (11.5-14.5) % Plt Count 137 L (140-440) X 10*3/uL Immature Gran # 0.21 H (0.00-0.04) X 10*3/uL Neutrophils # 13.18 H (1.80-7.70) X 10*3/uL Eosinophils # 0.02 L (0.04-0.35) X 10*3/uL Sodium 133 L (137-145) mmol/L Chloride 112 H (98-107) mmol/L Carbon Dioxide 13 L (22-30) mmol/L BUN 29 H (7-17) mg/dL Creatinine 1.08 H (0.52-1.04) mg/dL AST 52 H (14-36) U/L Total Protein 4.6 L (6.3-8.2) g/dL Albumin 2.3 L (3.5-5.0) g/dL Microbiology - Last 24 Hours (Table) 09/05/23 14:50 Blood Culture Gram Stain - Preliminary Blood Blood Culture - Preliminary Proteus mirabilis 09/05/23 15:00 Blood Culture Gram Stain - Preliminary Blood Blood Culture - Preliminary Proteus mirabilis Molecular ID 09/05/23 12:12 Urine Culture - Preliminary Urine,Clean Catch Gram Neg Bacilli
--- NOTE | 2023-09-07 19:06 | P.CONS ---
History of Present Illness - Reason for Consult Consult date: 09/07/23 hx colon cancer, bacteremia Requesting physician: Ronny Grider - Chief Complaint flank pain, N/V - History of Present Illness Patient is a 68 year old female with a significant history of breast cancer (2017) and currently undergoing treatment for colon cancer, who follows with Dr. James. The patient had bilateral stereotactic core biopsy showing fibrocystic changes on the right, and focal atypical lobular hyperplasia on the left, on 07/16/17. She then proceeded to left breast biopsy with needle localization on 08/12/17. This revealed a low-grade DCIS, 7 mm by direct measurement, less than 1 mm from the inked margin. the tumor was strongly ER/TX positive. We discussed having additional excision per protocol, or proceeding straight to RT , based on the small size and low risk profile. She ultimately decided on the latter, and completed RT on 10/30/17. She then started Tamoxifen which she currently continues on. She had an elective colonoscopy on 12/18/17, revealing a partially obstructing lesion in the mid ascending colons, beyond which the scope could not be passed. The pathology was positive for adenocarcinoma. She had a right hemicolectomy on 01/06/18 , revealing a 4 cm , grade II, T 3 tumor with 0/23/nodes positive. She started Xeolda in 2017. 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 CT in 08/05 showed a new 5.2 cm ovarian mass on the left. The patient was referred to TELE[facility] MONITOR oncology, Dr. Barakat at [facility]. She underwent resection with bilateral salpingo-oophorectomy and total abdominal hysterectomy laparoscopically on 09/01/19. Final pathology revealed the left ovarian mass to be consistent with colon primary. PET scan subsequently from 10/05 was negative for any residual uptake. She was PD-1 < 1%. She was started on FOLFOX. Additional biomarker testing revealed MSI stable, KRAS wild type and BRAF V600E positive. She was seen at [facility], and it was recommended to change her regimen to FOLFOXIRI + jack. Completed 11 cycles, and C12 was given only with irinotecan plus bevacizumab due to intolerance. She had a bronchoscopic biopsy by Pulmonary, on 07/03/22, showing metastatic colorectal ca. She was referred to radiation oncology for SBRT. She started on 08/05/22, and completed treatments on 08/15/22. She was then recommended to start Encorafenib and cetuximab. She started the same on 09/01/22. She was also referred to [facility], and felt to be a candidate for clinical trial. However the patient decided against the trial because of the logistical issues. Her CT scans in 05/09 had shown possible abnormality in sigmoid colon. The patient was therefore referred back to GI and had colonoscopy on 05/27/23. This revealed a 2 small, smooth nodules in the sigmoid colon, with biopsy showing benign hyperplasia. She has continued on Encorafenib and cetuximab, and completed cycle 13 on 09/01/23. CT of the chest abdomen and pelvis on 07/03/23 did not show any evidence of recurrence. There was mention of a minimal pleural effusion on the left side, but this is nonspecific. Repeat treatment response CT CAP scheduled for 10/08. Patient presented to the emergency department with complaints of left flank pain, hematuria and nausea vomiting. Of note patient has history of left urethral stent that was replaced approximately 1 month ago. On admission CT abdomen pelvis with contrast revealed inflammation changes around the left kidney and ureter with stent in place. No urethral calculi visualized. Remains to be mild to moderate hydronephrosis on the left. Colonic diverticulosis. Nonspecific nodularity/fat stranding changes in the omentum. Ultrasound of renal and bladder revealed mild left-sided hydronephrosis. Urology was consulted. No plan for surgical intervention at this time. Recommend 2-month follow-up for stent replacement. Blood culture and urine culture positive for gram-negative bacilli. T max 100.4. Continues on IV antibiotics. Labs reviewed, leukocytosis noted with WBC 21.4, hemoglobin 9.6, platelets 158,000. Creatinine improved today at 1.08, 1.7 yesterday. GFR 53. Review of Systems 10 point ROS is negative except as stated in the HPI Past Medical History Past Medical History: Cancer, Hypertension, Osteoarthritis (OA), Pneumonia, Renal Disease Additional Past Medical History / Comment(s): LT BREAST CANCER, colon cancer stage II-METS TO OVARIES, METS to both lungs. Currently on chemo (09/05/23), History of Any Multi-Drug Resistant Organisms: None Reported Past Surgical History: Bowel Resection, Breast Surgery, Cholecystectomy, Hysterectomy Additional Past Surgical History / Comment(s): LT BREAST LUMPECTOMY-RADIATION, COLONOSCOPY, HAS PORT A CATH, left ureteral stent. Past Anesthesia/Blood Transfusion Reactions: No Reported Reaction Additional Past Anesthesia/Blood Transfusion Reaction / Comm: No problems with previous blood transfusion. Past Psychological History: Depression Smoking Status: Former smoker Past Alcohol Use History: Occasional Additional Past Alcohol Use History / Comment(s): STARTED SMOKING AT AGE 20 quit December 2017. Past Drug Use History: None Reported - Past Family History Mother Family Medical History: COPD, Dementia Father Family Medical History: AFIB, Cancer Additional Family Medical History / Comment(s): Lung cancer. Sister(s) Family Medical History: Cancer Additional Family Medical History / Comment(s): VOCAL CORD CANCER Medications and Allergies Home Medications Medication Instructions Recorded Confirmed Type Multivitamins, Thera [Multivitamin 1 tab PO DAILY 07/10/17 09/05/23 History (formulary)] Tamoxifen Citrate 20 mg PO DAILY 12/16/17 09/05/23 History Cholecalciferol [Vitamin D3 (25 50 mcg PO DAILY 05/02/20 09/05/23 History Mcg = 1000 Iu)] Cyanocobalamin [Vitamin B-12] 1,000 mcg PO DAILY 05/02/20 09/05/23 History Ascorbic Acid [Vitamin C] 1,000 mg PO DAILY 06/05/22 09/05/23 History Cetuximab [Erbitux] 1 dose IV Q7D 09/04/22 09/05/23 History Prochlorperazine Maleate 10 mg PO Q6H PRN 09/04/22 09/05/23 History Valsartan 320 mg PO DAILY 09/04/22 09/05/23 History Metoprolol Succinate (ER) [Toprol 100 mg PO DAILY 07/02/23 09/05/23 History Xl] Vitamin E (Dl,Tocopheryl Acet) 400 unit PO DAILY 07/02/23 09/05/23 History [Vitamin E (400 Iu = 180 mg)] Betamethasone Dipropionate 1 applic TOPICAL DAILY PRN 09/05/23 09/05/23 History [Betamethasone Dipropionate 0.05% Cream] DULoxetine HCL [Cymbalta] 60 mg PO Q48H 09/05/23 09/05/23 History Encorafenib [Braftovi] 300 mg PO DAILY 09/05/23 09/07/23 History Metoprolol Succinate (ER) [Toprol 25 mg PO DAILY 09/05/23 09/05/23 History Xl] diazePAM [Valium] 1 mg PO TID PRN 09/05/23 09/05/23 History Allergies Allergy/AdvReac Type Severity Reaction Status Date / Time No Known Allergies Allergy Verified 09/05/23 15:21 Physical Exam Vitals: Vital Signs Temp Pulse Resp BP BP Pulse Ox 09/07/23 07:18 98.7 F 105 H 17 113/70 92 L 09/07/23 01:12 99 F 106 H 18 84/51 90 L 09/06/23 22:00 104/62 09/06/23 20:50 99.1 F 99 18 127/66 93 L 09/06/23 13:28 99.5 F 107 H 16 138/89 93 L Intake and Output 09/06/23 09/07/23 09/07/23 22:59 06:59 14:59 Other: Voiding Method Toilet # Voids 3 2 # Bowel Movements 1 - Constitutional General appearance: average body habitus, no acute distress - EENT Eyes: anicteric sclerae, EOMI ENT: hearing grossly normal - Respiratory Respiratory: bilateral: CTA - Cardiovascular Rhythm: regular Heart sounds: normal: S1, S2 - Gastrointestinal General gastrointestinal: soft, no tenderness - Integumentary Integumentary: no cyanotic, no jaundiced - Neurologic Neurologic: CNII-XII intact - Musculoskeletal Musculoskeletal: strength equal bilaterally - Psychiatric Psychiatric: A&O x's 3 Results CBC & Chem 7: 09/07/23 03:40 09/07/23 03:40 Labs: Abnormal Lab Results - Last 24 Hours (Table) 09/07/23 09/07/23 Range/Units 03:40 03:40 WBC 15.14 H (4.50-10.00) X 10*3/uL RBC 2.77 L (4.10-5.20) X 10*6/uL Hgb 8.6 L (12.0-15.0) g/dL Hct 26.6 L (37.2-46.3) % RDW 14.6 H (11.5-14.5) % Plt Count 137 L (140-440) X 10*3/uL Immature Gran # 0.21 H (0.00-0.04) X 10*3/uL Neutrophils # 13.18 H (1.80-7.70) X 10*3/uL Eosinophils # 0.02 L (0.04-0.35) X 10*3/uL Sodium 133 L (137-145) mmol/L Chloride 112 H (98-107) mmol/L Carbon Dioxide 13 L (22-30) mmol/L BUN 29 H (7-17) mg/dL Creatinine 1.08 H (0.52-1.04) mg/dL AST 52 H (14-36) U/L Total Protein 4.6 L (6.3-8.2) g/dL Albumin 2.3 L (3.5-5.0) g/dL Microbiology - Last 24 Hours (Table) 09/05/23 12:12 Urine Culture - Preliminary Urine,Clean Catch Gram Neg Bacilli 09/05/23 15:00 Blood Culture Gram Stain - Preliminary Blood Blood Culture - Preliminary Molecular ID 09/05/23 14:50 Blood Culture Gram Stain - Preliminary Blood CT scan - abdomen: report reviewed CT scan - pelvis: report reviewed US - abdomen: report reviewed Assessment and Plan (1) Bacteremia Current Visit: Yes Status: Acute Priority: High Code(s): R78.81 - BACTEREMIA SNOMED Code(s): 4702060 (2) Pyelonephritis Current Visit: Yes Status: Acute Priority: High Code(s): N12 - TUBULO- INTERSTITIAL NEPHRITIS, NOT SPCF ACUTE OR CHRONIC SNOMED Code(s): 46068387 (3) Colon cancer Current Visit: No Status: Acute Priority: High Code(s): C18.9 - MALIGNANT NEOPLASM OF COLON, UNSPECIFIED SNOMED Code(s): 645719711 Plan: Bacteremia, UTI Presented to the emergency department with complaints of left flank pain, hematuria and nausea vomiting. Of note patient has history of left urethral stent that was replaced approximately 1 month ago. -On admission CT abdomen pelvis with contrast revealed inflammation changes around the left kidney and ureter with stent in place. No urethral calculi visualized. Remains to be mild to moderate hydronephrosis on the left. Colonic diverticulosis. Nonspecific nodularity/fat stranding changes in the omentum. Ultrasound of renal and bladder revealed mild left-sided hydronephrosis -Urology was consulted. No plan for surgical intervention at this time. Recommend 2-month follow-up for stent replacement -Blood culture and urine culture positive for gram-negative bacilli. T max 100.4. Continues on IV antibiotics. ID consulted -CBC showing leukocytosis with WBC 21.4. Hemoglobin 9.6, platelets 158,000. Creatinine improved today at 1.08, from 1.7 yesterday. GFR 53. Metastatic colon cancer, hx breast cancer: -Full oncological history in [facility] -Currently on treatment with Encorafenib and cetuximab, and completed cycle 13 on 09/01/23. CT of the chest abdomen and pelvis on 07/03/23 did not show any evidence of recurrence -CT AP on admit showed nonspecific nodularity/fat stranding changes in the omentum. Will reevaluate on treatment response CT CAP on 10/09/23 -Will hold Encorafenib and cetuximab until adequately recovered from acute condition. Will f/u on ID antibiotic recommendations -Continue Tamoxifen attests: I have seen and examined pt, performed H&P, developed impression and plan of care. Discussed with dictator. Agree with documentation, dictated as a scribe.
[2023-09-07 23:31] LABS: Glucose,Whole Blood 95 mg/dL (70-110)
[2023-09-08 08:35] LABS: HCT 26.4 % (37.2-46.3); HGB 8.6 g/dL (12.0-15.0); MCH 30.6 pg (27.0-32.0); MCHC 32.6 g/dL (32.0-37.0); Mean Platelet Volume 11.3 FL (9.5-12.2); NRBC Per 100 WBC 0 X 10*3/uL (0.00-0.01); Platelet Count 139 X 10*3/uL (140-440); RBC 2.81 X 10*6/uL (4.10-5.20); RDW 14.4 % (11.5-14.5); WBC 13.67 X 10*3/uL (4.50-10.00)
[2023-09-08 08:48] LABS: ALT 23 U/L (8-44); AST 36 U/L (13-35); Albumin 2.7 g/dL (3.8-4.9); Albumin/Globulin Ratio 1.23 Ratio (1.60-3.17); Alkaline Phosphatase 84 U/L (41-126); BUN/Creat Ratio 16.67 Ratio (12.00-20.00); Calcium 8.5 mg/dL (8.7-10.3); Carbon Dioxide 17.3 mmol/L (21.6-31.8); Chloride 110 mmol/L (96-109); Globulin 2.2 g/dL (1.6-3.3); Glucose 90 mg/dL (70-110); Potassium 3.7 mmol/L (3.5-5.5); Sodium 137 mmol/L (135-145); Total Bilirubin <0.2 mg/dL (0.3-1.2); Total Protein 4.9 g/dL (6.2-8.2)
--- NOTE | 2023-09-08 09:11 | P.PN ---
Subjective Progress Note Date: 09/08/23 HISTORY OF PRESENT ILLNESS: 68-year-old female with past medical history of metastatic colon cancer on chemotherapy, left uretal stricture with stent changed by Dr Dunlap 1 month ago, presented to ER with complaint of left-sided flank pain, hematuria, nausea, and vomiting. Patient states that for the past week she has felt more fatigued than usual but no other symptoms, but on Thursday night patient developed severe left- sided flank pain, hematuria, presented to the ER. Upon presentation to the ER patient had a fever 100.4 was tachycardic with a heart rate of 116 and blood pressure was severely elevated to 213/102. Other blood work included WBC of 16.6, hemoglobin of 12.0, platelet of 230, BUN of 29.2, creatinine 1.7, ED GFR of 32. UA was positive for 182 WBCs large leukocyte esterase, and bacteria. CT abdomen was done at this time demonstrated inflammatory changes around left kidney and ureter with the stent in place, no stones noted, mild to moderate h ydronephrosis of the left kidney. Patient was started on IV fluids and Rocephin. Blood culture was positive for Proteus, urine culture pending. Infectious disease was consulted. Urology was consulted to evaluate stent placement. Over the weekend patient's condition improved, hematuria resolved. Hypertension has significantly improved, patient now slightly hypotensive, valsartan was held for RUKHSANA. 09/07/2023: Patient appears to be doing much better this morning, reports improvement but not complete resolution of left flank pain, no longer having hematuria. Still with some nausea, poor appetite. Still on IV fluids. No events reported overnight, vital signs are stable, afebrile. Urine culture positive for gram-negative bacilli. Lab work from this morning shows decreased white blood cell count now 15.14, hemoglobin 8.6, hematocrit 26.6, platelet 137, potassium 3.9, BUN 29, creatinine 1.08, EGFR 53. Patient was evaluated by urology, per CT scan stent appears to be in place, no further intervention planned on their end, recommending follow-up with Dr. Dunlap in 2 weeks. 09/08/2023: Patient fell overnight, per nursing staff was transported to bathroom without issue but patient fell when trying to walk herself back to bed. There was no injury. Patient has been moved to a room closer to nursing station for closer observation and bed alarms are activated. Despite fall patient feels well this morning, left flank pain is improved, only minor discomfort now. Does report left breast soreness. Blood culture and urine culture both positive for Proteus. Renal ultrasound performed yesterday showed mild left-sided hydronephrosis. Awaiting final input from Urology if any further intervention will be necessary. Dr. James saw patient yesterday, agree with holding chemotherapy until patient has recovered from illness. Vital signs stable. Blood work this morning shows White blood cell 13.67, hemoglobin 8.6, hematocrit 26.4, platelets 139, sodium 137, potassium 3.7, BUN 15, creatinine 0.9, eGFR 70. REVIEW OF SYSTEMS: CONSTITUTIONAL: Well-developed no acute respiratory distress. EYES: No icterus sclerae, no conjunctivitis. EARS, NOSE, MOUTH, THROAT, and FACE: No sore throat, lymphadenopathy, carotid bruits or deformity. RESPIRATORY: No SOB cough or wheezes. CARDIOVASCULAR: No CP, Palpitation, PND, Orthopnea, or angina. GASTROINTESTINAL: Positive nausea. No Abd pain, vomiting, no Diarrhea or constipation, No GI Bleed, no distention or masses. GENITOURINARY: Positive UTI, pyelonephritis, hematuria. Negative kidney stones. INTEGUMENT/BREAST: Negative for any muscular injury with mild osteoarthritis.. HEMATOLOGIC/LYMPHATIC: Negative for bleed or purpura. MUSCULOSKELTAL: Negative for Myalgia or arthralgia. NEURLOGICAL: No LOC, Sz or syncope, blurred vision dizziness or abnormality.. BEHAVIORAL/PSYCH: Negative. ENDOCRINE: Negative. PHYSICAL EXAMINATION: General Appearance: Alert, cooperative, no distress, appears stated age. Neck HEENT: Supple, no lymphadenopathy, no thyroid enlargement, no carotid bruits. Lungs: Clear to auscultation without crackles or wheezes no rhonchi, no deformity. Chest Wall: Chest wall normal expansion with deep inspiration no tenderness and no deformity was found on exam, no costochondral pain or discomfort. Left breast assessed per patient request, no signs of mastitis. Heart: Regular rate and rhythm, S1, S2 normal, no murmur, rub or gallop. Back: Symmetric, no curvature, ROM normal. Positive left CVA tenderness, improved from yesterday. Abdomen: Soft, mild epigastric tenderness, bowel sounds active all four quadrants, no masses, no organomegaly. Extremities: Extremities normal, atraumatic, no cyanosis or edema. Pulses: 2+ and symmetric. Skin: Skin color, texture, turgor normal, no rashes or lesions. Neurologic: Alert oriented x3 cranial nerves II through XII intact, no motor deficit, no abnormal balance or gait. ASSESSMENT AND PLAN: _Sepsis secondary to acute left pyelonephritis: Started on Rocephin, blood and urine cultures positive for Proteus with resistance to Nitrofurantoin and tetracycline. WBC 16.6 on admission, now 13.67. Monitor CBC. _Acute kidney injury secondary to pyelonephritis: Creatinine at time of admission was 1.7, now 0.9. Discontinue IVF. Hold nephrotoxic medications. ID consulted, awaiting recommendations, will transition to oral antibiotics at discharge. CT abdomen/pelvis demonstrated hydronephrosis of left kidney. Renal US shows mild left-sided hydronephrosis. Monitor CMP. _History of uretal stricture s/p uretal stent: Stent changed [address] Dunlap. Urology was consulted, CT scan demonstrates appropriately placed stent, no futher intervention required, recommend follow up outpatient in 2 weeks. _Fall secondary to weakness and debility: No injury from fall on 09/06, fall prevention measures increased. Will have PT come work with patient to increase strength and stability. _Metastatic colon cancer, currently undergoing chemotherapy: Last chemo cycle completed 09/01/23. Follows with Dr. James outpatient. Holding Braftovi until pyelonephritis resolves. Per Dr. James will have repeat CT scan in September. _History of left breast cancer treated with recision and radiotherapy: Continue tamoxifen. Follows with Dr. Carrasco, goal is to have mastectomy done in the future due to repeated occurrences of mastitis but nothing is planned due to ongoing chemotherapy for colon cancer. Left breast does not demonstrate any mastitis at this time. _Hypertension: Maintained on valsartan and metoprolol at home. On admission was severely hypertensive, now hypotensive. Valsartan is held for RUKHSANA, continue metoprolol, hydralazine IV ordered as needed for hypertension. _Anxiety: continue diazepam as needed. _DVT prophylaxis: on hold due to hematuria. Disposition: Full Code. Discussion: Continue IV antibiotics. Will D/C IV fluids. Have PT evaluate and work with patient. Await final recommendations from urology and infectious disease. Continue to monitor CBC and CMP daily. Patient will likely be discharged tomorrow. The patient was seen and evaluated by Dr. Garza. Plan, assessment, and medications were all discussed, reviewed, and directed by Dr. Garza with Woody STAFFORD acting as a scribe. Objective - Vital Signs Vital signs: Vital Signs Temp 98.4 F 09/08/23 07:32 Pulse 100 09/08/23 07:32 Resp 18 09/08/23 07:32 BP 157/83 09/08/23 07:32 Pulse Ox 93 L 09/08/23 07:32 FiO2 Intake & Output 09/07/23 09/08/23 09/08/23 18:59 06:59 18:59 Intake Total 540 Balance 540 Intake: Oral 540 Other: # Voids 3 5 - Labs CBC & Chem 7: 09/08/23 04:20 09/07/23 03:40 Labs: Abnormal Lab Results - Last 24 Hours (Table) 09/07/23 09/08/23 Range/Units 03:40 04:20 WBC 15.14 H 13.67 H (4.50-10.00) X 10*3/uL RBC 2.77 L 2.81 L (4.10-5.20) X 10*6/uL Hgb 8.6 L 8.6 L (12.0-15.0) g/dL Hct 26.6 L 26.4 L (37.2-46.3) % RDW 14.6 H (11.5-14.5) % Plt Count 137 L 139 L (140-440) X 10*3/uL Immature Gran # 0.21 H (0.00-0.04) X 10*3/uL Neutrophils # 13.18 H (1.80-7.70) X 10*3/uL Eosinophils # 0.02 L (0.04-0.35) X 10*3/uL Microbiology - Last 24 Hours (Table) 09/05/23 12:12 Urine Culture - Final Urine,Clean Catch Proteus mirabilis 09/05/23 14:50 Blood Culture Gram Stain - Preliminary Blood Blood Culture - Preliminary Proteus mirabilis 09/05/23 15:00 Blood Culture Gram Stain - Preliminary Blood Blood Culture - Preliminary Proteus mirabilis Molecular ID
[2023-09-08] MEDS: PROCHLORPERAZINE 10 MG TAB PO PRN (10:57)
--- NOTE | 2023-09-08 11:07 | CT ---
EXAMINATION TYPE: CT brain wo con CT DLP: 1096.4 mGycm, Automated exposure control for dose reduction was used. DATE OF EXAM: 09/08/2023 10:57 AM COMPARISON: CT brain C-spine 07/28/2023 CLINICAL INDICATION:Female, 68 years old with history of Fall with head trauma, Fall, struck back of head TECHNIQUE: Brain: Multiple axial CT images of the brain were obtained without IV contrast. . Coronal and sagitta l reformats reviewed. FINDINGS: Brain: Extra-axial spaces: No abnormal extra-axial fluid collections. Ventricular system: Within normal limits Cerebral parenchyma: No acute intraparenchymal hemorrhage or mass effect. The marion-white junction is well differentiated. Scattered hypoattenuating areas are seen within the periventricular white matte r. Cerebellum: Unremarkable. Mass effect: No evidence of midline shift. Intracranial vasculature: unremarkable Soft tissues: Normal. Calvarium/osseous structures: No depressed skull fracture. Paranasal sinuses and mastoid air cells: Minimal scattered paranasal sinus disease. Visualized orbits: Orbital contents are intact. IMPRESSION: 1. No acute intracranial process. 2. Nonspecific white matter changes, likely secondary to chronic small vessel ischemic disease.
--- NOTE | 2023-09-08 12:57 | P.PN ---
Subjective Progress Note Date: 09/08/23 At todays visit pt resting comfortably in bed. She reports a fall off the toilet, unsure if she hit her head. CT brain has been ordered Blood and urine cultures positive for proteus mirabilis, continues on IV abx. Afebrile. Leukocytosis improving, WBC 13.67 today. Hgb 8.6, plt 139,000. Kidney function improving Objective - Vital Signs Vital signs: Vital Signs Temp 98.4 F 09/08/23 07:32 Pulse 98 09/08/23 08:00 Resp 18 09/08/23 07:32 BP 157/83 09/08/23 07:32 Pulse Ox 93 L 09/08/23 07:32 FiO2 Intake & Output 09/07/23 09/08/23 09/08/23 18:59 06:59 18:59 Intake Total 540 Balance 540 Intake: Oral 540 Other: # Voids 3 5 - Constitutional General appearance: Present: average body habitus, no acute distress - EENT EENT Comment(s): head atraumatic Eyes: Present: anicteric sclerae, EOMI ENT: Present: hearing grossly normal - Respiratory Details: breathing is even and unlabored - Cardiovascular Details: well perfused - Integumentary Integumentary: Absent: cyanotic, jaundiced - Neurologic Neurologic Comment(s): no focal deficits - Musculoskeletal Musculoskeletal: Present: strength equal bilaterally - Psychiatric Psychiatric: Present: A&O x's 3 - Labs CBC & Chem 7: 09/08/23 04:20 09/08/23 04:20 Labs: Abnormal Lab Results - Last 24 Hours (Table) 09/08/23 09/08/23 Range/Units 04:20 04:20 WBC 13.67 H (4.50-10.00) X 10*3/uL RBC 2.81 L (4.10-5.20) X 10*6/uL Hgb 8.6 L (12.0-15.0) g/dL Hct 26.4 L (37.2-46.3) % Plt Count 139 L (140-440) X 10*3/uL Chloride 110 H (96-109) mmol/L Carbon Dioxide 17.3 L (21.6-31.8) mmol/L Calcium 8.5 L (8.7-10.3) mg/dL Total Bilirubin <0.2 L (0.3-1.2) mg/dL AST 36 H (13-35) U/L Total Protein 4.9 L (6.2-8.2) g/dL Albumin 2.7 L (3.8-4.9) g/dL Albumin/Globulin Ratio 1.23 L (1.60-3.17) Ratio Microbiology - Last 24 Hours (Table) 09/05/23 14:50 Blood Culture Gram Stain - Final Blood Blood Culture - Final Proteus mirabilis 09/05/23 15:00 Blood Culture Gram Stain - Final Blood Blood Culture - Final Proteus mirabilis Molecular ID 09/05/23 12:12 Urine Culture - Final Urine,Clean Catch Proteus mirabilis - Imaging and Cardiology CT Scan - head: report reviewed US - abdomen: report reviewed Assessment and Plan (1) Bacteremia Current Visit: Yes Status: Acute Priority: High Code(s): R78.81 - BACTEREMIA SNOMED Code(s): 8500001 (2) Pyelonephritis Current Visit: Yes Status: Acute Priority: High Code(s): N12 - TUBULO- INTERSTITIAL NEPHRITIS, NOT SPCF ACUTE OR CHRONIC SNOMED Code(s): 96307031 (3) Colon cancer Current Visit: No Status: Acute Priority: High Code(s): C18.9 - MALIGNANT NEOPLASM OF COLON, UNSPECIFIED SNOMED Code(s): 269917919 Plan: Bacteremia, UTI Presented to the emergency department with complaints of left flank pain, hematuria and nausea vomiting. Of note patient has history of left urethral stent that was replaced approximately 1 month ago. -On admission CT abdomen pelvis with contrast revealed inflammation changes around the left kidney and ureter with stent in place. No urethral calculi visualized. Remains to be mild to moderate hydronephrosis on the left. Colonic diverticulosis. Nonspecific nodularity/fat stranding changes in the omentum. Ultrasound of renal and bladder revealed mild left-sided hydronephrosis -Urology was consulted. No plan for surgical intervention at this time. Recommend 2-month follow-up for stent replacement -Blood culture and urine culture positive for Proteus mirabilis. T max 100.4, afebrile since 09/04. Continues on IV antibiotics. ID following -Leukocytosis improving, WBC 13.67. Kidney function improving, creatinine 0.9, GFR 70 Metastatic colon cancer, hx breast cancer: -Full oncological history in consult HPI -Currently on treatment with Encorafenib and cetuximab, and completed cycle [address] 09/01/[address]. [address] of the chest abdomen and pelvis on 07/03/23 did not show any evidence of recurrence -CT AP on admit showed nonspecific nodularity/fat stranding changes in the omentum. Will reevaluate on treatment response CT CAP on 10/09/23 -Will hold Encorafenib and cetuximab until adequately recovered from acute condition. Will f/u on ID antibiotic recommendations -Continue Tamoxifen
--- NOTE | 2023-09-08 16:25 | P.PN ---
Subjective Progress Note Date: 09/07/23 Principal diagnosis: Reason for follow-up is UTI and bacteremia Patient is a 68-year-old female with a past medical history significant for hypertension osteoarthritis metastatic colon cancer last chemo was 09/05/2023 history of left breast cancer patient also have a left ureteral stent placement for hydronephrosis presenting to the hospital for evaluation left-sided flank pain hematuria patient was noticed to have a sepsis with gram- negative bacteremia On today's evaluation that is 09/07/2023,the patient remains to be afebrile, patient is on room air not requiring supplemental oxygen and denies any shortness of breath no chest pain or cough.Patient did have improvement in her nausea vomiting and flank pain no diarrhea has been reported. Patient white count is down to 15.14, creatinine 1.08 Objective - Vital Signs Vital signs: Vital Signs Temp 98.7 F 09/07/23 07:18 Pulse 105 H 09/07/23 07:18 Resp 17 09/07/23 07:18 BP 113/70 09/07/23 07:18 Pulse Ox 92 L 09/07/23 07:18 FiO2 Intake & Output 09/06/23 09/07/23 09/07/23 18:59 06:59 18:59 Other: Voiding Method Toilet Toilet # Voids 3 2 # Bowel Movements 1 - Exam GENERAL DESCRIPTION: An elderly female lying in bed in no distress RESPIRATORY SYSTEM: Unlabored breathing , decreased breath sounds at bases HEART: S1 S2 regular rate and rhythm , ABDOMEN: Soft , no tenderness EXTREMITIES: No edema feet - Labs CBC & Chem 7: 09/08/23 04:20 09/08/23 04:20 Labs: Abnormal Lab Results - Last 24 Hours (Table) 09/07/23 09/07/23 Range/Units 03:40 03:40 WBC 15.14 H (4.50-10.00) X 10*3/uL RBC 2.77 L (4.10-5.20) X 10*6/uL Hgb 8.6 L (12.0-15.0) g/dL Hct 26.6 L (37.2-46.3) % RDW 14.6 H (11.5-14.5) % Plt Count 137 L (140-440) X 10*3/uL Immature Gran # 0.21 H (0.00-0.04) X 10*3/uL Neutrophils # 13.18 H (1.80-7.70) X 10*3/uL Eosinophils # 0.02 L (0.04-0.35) X 10*3/uL Sodium 133 L (137-145) mmol/L Chloride 112 H (98-107) mmol/L Carbon Dioxide 13 L (22-30) mmol/L BUN 29 H (7-17) mg/dL Creatinine 1.08 H (0.52-1.04) mg/dL AST 52 H (14-36) U/L Total Protein 4.6 L (6.3-8.2) g/dL Albumin 2.3 L (3.5-5.0) g/dL Microbiology - Last 24 Hours (Table) 09/05/23 12:12 Urine Culture - Preliminary Urine,Clean Catch Gram Neg Bacilli 09/05/23 15:00 Blood Culture Gram Stain - Preliminary Blood Blood Culture - Preliminary Molecular ID 09/05/23 14:50 Blood Culture Gram Stain - Preliminary Blood Assessment and Plan (1) Bacteremia Current Visit: Yes Status: Acute Priority: High Code(s): R78.81 - BACTEREMIA SNOMED Code(s): 2098738 (2) Pyelonephritis Current Visit: Yes Status: Acute Priority: High Code(s): N12 - TUBULO- INTERSTITIAL NEPHRITIS, NOT SPCF ACUTE OR CHRONIC SNOMED Code(s): 52851890 (3) Sepsis Current Visit: Yes Status: Acute Code(s): A41.9 - SEPSIS, UNSPECIFIED ORGANISM SNOMED Code(s): 75343945 Plan: 1patient presented hospital with sepsis in this patient who did have fever tachycardia elevated white count source and likely left-sided pyelonephritis possible complicated UTI as patient did have a history of obstructed kidney requiring ureteral stent placement 9 months ago. 2gram-negative bacteremia source likely left-sided pyelonephritis. 3patient to continue with Rocephin 2 g daily awaiting for sensitivity Dictation was produced using [employer] dictation software. please excuse any grammatical, word or spelling errors. Time with Patient: Less than 30
--- NOTE | 2023-09-08 16:26 | P.PN ---
Subjective Progress Note Date: 09/08/23 Principal diagnosis: Reason for follow-up is UTI and bacteremia Patient is a 68-year-old female with a past medical history significant for hypertension osteoarthritis metastatic colon cancer last chemo was 09/05/2023 history of left breast cancer patient also have a left ureteral stent placement for hydronephrosis presenting to the hospital for evaluation left-sided flank pain hematuria patient was noticed to have a sepsis with gram- negative bacteremia On today's evaluation that is 09/08/2023, the patient continues to be afebrile, the patient is on room air and breathing comfortably, the Pt noticed to be sleepy x 2 when he went to see the patient for evaluation apparently the patient has received some Compazine as reported by nursing staff no vomiting or diarrhea has been reported. The patient white count status 13.67, creatinine 0.9 blood and urine with Proteus sensitive pathogen Objective - Vital Signs Vital signs: Vital Signs Temp 98.4 F 09/08/23 07:32 Pulse 98 09/08/23 08:00 Resp 18 09/08/23 07:32 BP 157/83 09/08/23 07:32 Pulse Ox 93 L 09/08/23 07:32 FiO2 Intake & Output 09/07/23 09/08/23 09/08/23 18:59 06:59 18:59 Intake Total 540 Balance 540 Intake: Oral 540 Other: # Voids 3 5 - Labs CBC & Chem 7: 09/08/23 04:20 09/08/23 04:20 Labs: Abnormal Lab Results - Last 24 Hours (Table) 09/08/23 09/08/23 Range/Units 04:20 04:20 WBC 13.67 H (4.50-10.00) X 10*3/uL RBC 2.81 L (4.10-5.20) X 10*6/uL Hgb 8.6 L (12.0-15.0) g/dL Hct 26.4 L (37.2-46.3) % Plt Count 139 L (140-440) X 10*3/uL Chloride 110 H (96-109) mmol/L Carbon Dioxide 17.3 L (21.6-31.8) mmol/L Calcium 8.5 L (8.7-10.3) mg/dL Total Bilirubin <0.2 L (0.3-1.2) mg/dL AST 36 H (13-35) U/L Total Protein 4.9 L (6.2-8.2) g/dL Albumin 2.7 L (3.8-4.9) g/dL Albumin/Globulin Ratio 1.23 L (1.60-3.17) Ratio Microbiology - Last 24 Hours (Table) 09/05/23 14:50 Blood Culture Gram Stain - Final Blood Blood Culture - Final Proteus mirabilis 09/05/23 15:00 Blood Culture Gram Stain - Final Blood Blood Culture - Final Proteus mirabilis Molecular ID 09/05/23 12:12 Urine Culture - Final Urine,Clean Catch Proteus mirabilis Assessment and Plan (1) Bacteremia Current Visit: Yes Status: Acute Priority: High Code(s): R78.81 - BACTEREMIA SNOMED Code(s): 6956102 (2) Pyelonephritis Current Visit: Yes Status: Acute Priority: High Code(s): N12 - TUBULO-INTERSTITIAL NEPHRITIS, NOT SPCF ACUTE OR CHRONIC SNOMED Code(s): 59684423 (3) Sepsis Current Visit: Yes Status: Acute Code(s): A41.9 - SEPSIS, UNSPECIFIED ORGANISM SNOMED Code(s): 11557173 Plan: 1patient presented hospital with sepsis in this patient who did have fever tachycardia elevated white count source and likely left-sided pyelonephritis possible complicated UTI as patient did have a history of obstructed kidney requiring ureteral stent placement 9 months ago. 2Proteus bacteremia source likely left-sided pyelonephritis. 3patient to continue with Rocephin 2 g daily while inpatient will transition to oral antibiotic on discharge Dictation was produced using [employer] dictation software. please excuse any grammatical, word or spelling errors. Time with Patient: Less than 30
[2023-09-09] MEDS: ACETAMINOPHEN TAB 500 MG TAB PO PRN (00:23)
[2023-09-09] MEDS: DEXTROSE 5%-0.45% NACL 1,000 ML IV SCH (13:27)
[2023-09-09] MEDS: METOPROLOL SUCCINATE (ER) 50 MG TAB.ER.24H PO STA (15:47)
--- NOTE | 2023-09-10 05:51 | P.PN ---
Subjective Progress Note Date: 09/09/23 HISTORY OF PRESENT ILLNESS: 68-year-old female with past medical history of metastatic colon cancer on chemotherapy, left uretal stricture with stent changed by Dr Dunlap 1 month ago, presented to ER with complaint of left-sided flank pain, hematuria, nausea, and vomiting. Patient states that for the past week she has felt more fatigued than usual but no other symptoms, but on Thursday night patient developed severe left- sided flank pain, hematuria, presented to the ER. Upon presentation to the ER patient had a fever 100.4 was tachycardic with a heart rate of 116 and blood pressure was severely elevated to 213/102. Other blood work included WBC of 16.6, hemoglobin of 12.0, platelet of 230, BUN of 29.2, creatinine 1.7, ED GFR of 32. UA was positive for 182 WBCs large leukocyte esterase, and bacteria. CT abdomen was done at this time demonstrated inflammatory changes around left kidney and ureter with the stent in place, no stones noted, mild to moderate hydronephrosis of the left kidney. Patient was started on IV fluids and Rocephin. Blood culture was positive for Proteus, urine culture pending. Infectious disease was consulted. Urology was consulted to evaluate stent placement. Over the weekend patient's condition improved, hematuria resolved. Hypertension has significantly improved, patient now slightly hypotensive, valsartan was held for RUKHSANA. 09/07/2023: Patient appears to be doing much better this morning, reports improvement but not complete resolution of left flank pain, no longer having hematuria. Still with some nausea, poor appetite. Still on IV fluids. No events reported overnight, vital signs are stable, afebrile. Urine culture positive for gram-negative bacilli. Lab work from this morning shows decreased white blood cell count now 15.14, hemoglobin 8.6, hematocrit 26.6, platelet 137, potassium 3.9, BUN 29, creatinine 1.08, EGFR 53. Patient was evaluated by urology, per CT scan stent appears to be in place, no further intervention planned on their end, recommending follow-up with Dr. Dunlap in 2 weeks. 09/08/2023: Patient fell overnight, per nursing staff was transported to bathroom without issue but patient fell when trying to walk herself back to bed. There was no injury. Patient has been moved to a room closer to nursing station for closer observation and bed alarms are activated. Despite fall patient feels well this morning, left flank pain is improved, only minor discomfort now. Does report left breast soreness. Blood culture and urine culture both positive for Proteus. Renal ultrasound performed yesterday showed mild left-sided hydronephrosis. Awaiting final input from Urology if any further intervention will be necessary. Dr. James saw patient yesterday, agree with holding chemotherapy until patient has recovered from illness. Vital signs stable. Blood work this morning shows White blood cell 13.67, hemoglobin 8.6, hematocrit 26.4, platelets 139, sodium 137, potassium 3.7, BUN 15, creatinine 0.9, eGFR 70. 09/09/2023: The patient is doing well she still quite dyspneic when attempt to w alk and ambulate had significant lightheadedness and dizziness developed to have significant tachycardia from her earlier admission time her metoprolol was resumed only at 25 mg a day with her being hypertensive at the time the patient is not to have history of tachycardia has been on beta-honey 100 mg daily. Medication were increased to 100 mg a day patient will be observed for the next 24 hours also this episode patient had slight bed dehydration lightheadedness was started on D5.45 IV fluids at 75 cc an hour will titrate physical therapy continue current management will continue IV antibiotics and delay her discharge 1 more day till tomorrow. REVIEW OF SYSTEMS: CONSTITUTIONAL: Well-developed no acute respiratory distress. EYES: No icterus sclerae, no conjunctivitis. EARS, NOSE, MOUTH, THROAT, and FACE: No sore throat, lymphadenopathy, carotid bruits or deformity. RESPIRATORY: No SOB cough or wheezes. CARDIOVASCULAR: No CP, Palpitation, PND, Orthopnea, or angina. GASTROINTESTINAL: Positive nausea. No Abd pain, vomiting, no Diarrhea or constipation, No GI Bleed, no distention or masses. GENITOURINARY: Positive UTI, pyelonephritis, hematuria. Negative kidney stones. INTEGUMENT/BREAST: Negative for any muscular injury with mild osteoarthritis.. HEMATOLOGIC/LYMPHATIC: Negative for bleed or purpura. MUSCULOSKELTAL: Negative for Myalgia or arthralgia. NEURLOGICAL: No LOC, Sz or syncope, blurred vision dizziness or abnormality.. BEHAVIORAL/PSYCH: Negative. ENDOCRINE: Negative. PHYSICAL EXAMINATION: General Appearance: Alert, cooperative, no distress, appears stated age. Neck HEENT: Supple, no lymphadenopathy, no thyroid enlargement, no carotid bruits. Lungs: Clear to auscultation without crackles or wheezes no rhonchi, no deformity. Chest Wall: Chest wall normal expansion with deep inspiration no tenderness and no deformity was found on exam, no costochondral pain or discomfort. Left breast assessed per patient request, no signs of mastitis. Heart: Regular rate and rhythm, S1, S2 normal, no murmur, rub or gallop. Back: Symmetric, no curvature, ROM normal. Positive left CVA tenderness, improved from yesterday. Abdomen: Soft, mild epigastric tenderness, bowel sounds active all four quadrants, no masses, no organomegaly. Extremities: Extremities normal, atraumatic, no cyanosis or edema. Pulses: 2+ and symmetric. Skin: Skin color, texture, turgor normal, no rashes or lesions. Neurologic: Alert oriented x3 cranial nerves II through XII intact, no motor deficit, no abnormal balance or gait. ASSESSMENT AND PLAN: _Sepsis secondary to acute left pyelonephritis: Has been on Rocephin started on Rocephin Since admission her white blood cells are down to 13,000 hemoglobin 8.6 has been stable so far on medication going back to her culture shows Proteus mirabilis susceptible to all antibiotics patient be switched to ciprofloxacin orally 250 mg twice a day to complete total of 10 days to finish her management for pyelo. _Acute kidney injury secondary to pyelonephritis: Creatinine at time of admission was 1.7, now 0.9. Continue IV hydration for 1 more day, tomorrow morning patient creatinine and GFR are back to normal. _History of uretal stricture s/p uretal stent: Stent changed [address] Dunlap. Seeing urology and review her films at this point no need to manipulate or remove the stent yet or replace it with maybe after the infection is gone this is something can be done as an outpatient if needed. _Fall secondary to weakness and debility: No injury from fall on 09/06, fall prevention measures increased. Will have PT come work with patient to increase strength and stability. _Reactive tachycardia with pulse rates up to 120 beats per minutes will resume her metoprolol at full dose watch the patient carefully hydration and reassess patient in next 24 hours. _Metastatic colon cancer, currently undergoing chemotherapy: Has been holding chemo for now she is seen oncology will resume medication as soon as patient is feeling better or by next week when she sees oncology after she leaves hospital. _History of left breast cancer treated with recision and radiotherapy: Continue tamoxifen. This did have slight irritation and discomfort and worry about recurrent cellulitis of the left breast there is nothing more than scar tissue and apparently patient has been seeing Dr. Murillo and was advised to do total mastectomy with something patient might have to do in the next few months. _Hypertension: Maintained on valsartan and metoprolol at home. On admission metoprolol was held originally but resume at 25 mg. Will increase it up to 100 mg daily for now patient is off hydralazine. _Anxiety: continue diazepam as needed. _DVT prophylaxis: Knee-high TRAVON hose and Venodyne boots. Disposition: Discharge home. Discussion: The patient was supposed to go home today but developed to have significant tachycardia hypotension and mild dehydration with lightheadedness will continue hydration resume her full dose of beta-honey and delay discharge till tomorrow as she is still on IV antibiotics. Objective - Vital Signs Vital signs: Vital Signs Temp 98 F 09/09/23 06:50 Pulse 97 09/09/23 06:50 Resp 18 09/09/23 06:50 BP 157/82 09/09/23 06:50 Pulse Ox 94 L 09/09/23 06:50 FiO2 Intake & Output 09/08/23 09/09/23 09/09/23 18:59 06:59 18:59 Other: # Voids 4 7 - Labs CBC & Chem 7: 09/08/23 04:20 09/08/23 04:20 Labs: Abnormal Lab Results - Last 24 Hours (Table) 09/08/23 09/08/23 Range/Units 04:20 04:20 WBC 13.67 H (4.50-10.00) X 10*3/uL RBC 2.81 L (4.10-5.20) X 10*6/uL Hgb 8.6 L (12.0-15.0) g/dL Hct 26.4 L (37.2-46.3) % Plt Count 139 L (140-440) X 10*3/uL Chloride 110 H (96-109) mmol/L Carbon Dioxide 17.3 L (21.6-31.8) mmol/L Calcium 8.5 L (8.7-10.3) mg/dL Total Bilirubin <0.2 L (0.3-1.2) mg/dL AST 36 H (13-35) U/L Total Protein 4.9 L (6.2-8.2) g/dL Albumin 2.7 L (3.8-4.9) g/dL Albumin/Globulin Ratio 1.23 L (1.60-3.17) Ratio Microbiology - Last 24 Hours (Table) 09/05/23 14:50 Blood Culture Gram Stain - Final Blood Blood Culture - Final Proteus mirabilis 09/05/23 15:00 Blood Culture Gram Stain - Final Blood Blood Culture - Final Proteus mirabilis Molecular ID
--- NOTE | 2023-09-10 07:47 | P.DS ---
Providers Date of admission: 09/05/23 14:09 Attending physician: Gama Garza Consults: 09/06/23 10:49 Consult Physician Routine Consulting Provider: Helga Caldera Consult Reason/Comments: Proteus bacteremia Do you want consulting provider notified?: Yes 09/06/23 10:52 Consult Physician Routine Consulting Provider: Krystian Dunlap Consult Reason/Comments: Left ureteral stent with hydroneprosis, bacteremia Do you want consulting provider notified?: Yes 09/06/23 17:14 Consult Physician Routine Consulting Provider: Eddie James Consult Reason/Comments: Colon CA with mets. Has bacteremia. Should she continue chemo Do you want consulting provider notified?: Yes Primary care physician: [facility] Course: HISTORY OF PRESENT ILLNESS: 68-year-old female with past medical history of metastatic colon cancer on chemotherapy, left uretal stricture with stent changed by Dr Dunlap 1 month ago, presented to ER with complaint of left-sided flank pain, hematuria, nausea, and vomiting. Patient states that for the past week she has felt more fatigued than usual but no other symptoms, but on Thursday night patient developed severe left- sided flank pain, hematuria, presented to the ER. Upon presentation to the ER patient had a fever 100.4 was tachycardic with a heart rate of 116 and blood pressure was severely elevated to 213/102. Other blood work included WBC of 16.6, hemoglobin of 12.0, platelet of 230, BUN of 29.2, creatinine 1.7, ED GFR of 32. UA was positive for 182 WBCs large leukocyte esterase, and bacteria. CT abdomen was done at this time demonstrated inflammatory changes around left kidney and ureter with the stent in place, no stones noted, mild to moderate hydronephrosis of the left kidney. Patient was started on IV fluids and Dre ephin. Blood culture was positive for Proteus, urine culture pending. Infectious disease was consulted. Urology was consulted to evaluate stent placement. Over the weekend patient's condition improved, hematuria resolved. Hypertension has significantly improved, patient now slightly hypotensive, valsartan was held for RUKHSANA. 09/07/2023: Patient appears to be doing much better this morning, reports improvement but not complete resolution of left flank pain, no longer having hematuria. Still with some nausea, poor appetite. Still on IV fluids. No events reported overnight, vital signs are stable, afebrile. Urine culture positive for gram-negative bacilli. Lab work from this morning shows decreased white blood cell count now 15.14, hemoglobin 8.6, hematocrit 26.6, platelet 137, potassium 3.9, BUN 29, creatinine 1.08, EGFR 53. Patient was evaluated by urology, per CT scan stent appears to be in place, no further intervention planned on their end, recommending follow-up with Dr. Dunlap in 2 weeks. 09/08/2023: Patient fell overnight, per nursing staff was transported to bathroom without issue but patient fell when trying to walk herself back to bed. There was no injury. Patient has been moved to a room closer to nursing station for closer observation and bed alarms are activated. Despite fall patient feels well this morning, left flank pain is improved, only minor discomfort now. Does report left breast soreness. Blood culture and urine culture both positive for Proteus. Renal ultrasound performed yesterday showed mild left-sided hydronephrosis. Awaiting final input from Urology if any further intervention will be necessary. Dr. James saw patient yesterday, agree with holding chemotherapy until patient has recovered from illness. Vital signs stable. Blood work this morning shows White blood cell 13.67, hemoglobin 8.6, hematocrit 26.4, platelets 139, sodium 137, potassium 3.7, BUN 15, creatinine 0.9, eGFR 70. 09/05/2023: The patient is doing well she still quite dyspneic when attempt to walk and ambulate had significant lightheadedness and dizziness developed to have significant tachycardia from her earlier admission time her metoprolol was resumed only at 25 mg a day with her being hypertensive at the time the patient is not to have history of tachycardia has been on beta-honey 100 mg daily. Medication were increased to 100 mg a day patient will be observed for the next 24 hours also this episode patient had slight bed dehydration lightheadedness was started on D5.45 IV fluids at 75 cc an hour will titrate physical therapy continue current management will continue IV antibiotics and delay her discharge 1 more day till tomorrow. REVIEW OF SYSTEMS: CONSTITUTIONAL: Well-developed no acute respiratory distress. EYES: No icterus sclerae, no conjunctivitis. EARS, NOSE, MOUTH, THROAT, and FACE: No sore throat, lymphadenopathy, carotid bruits or deformity. RESPIRATORY: No SOB cough or wheezes. CARDIOVASCULAR: No CP, Palpitation, PND, Orthopnea, or angina. GASTROINTESTINAL: Positive nausea. No Abd pain, vomiting, no Diarrhea or constipation, No GI Bleed, no distention or masses. GENITOURINARY: Positive UTI, pyelonephritis, hematuria. Negative kidney stones. INTEGUMENT/BREAST: Negative for any muscular injury with mild osteoarthritis.. HEMATOLOGIC/LYMPHATIC: Negative for bleed or purpura. MUSCULOSKELTAL: Negative for Myalgia or arthralgia. NEURLOGICAL: No LOC, Sz or syncope, blurred vision dizziness or abnormality.. BEHAVIORAL/PSYCH: Negative. ENDOCRINE: Negative. PHYSICAL EXAMINATION: General Appearance: Alert, cooperative, no distress, appears stated age. Neck HEENT: Supple, no lymphadenopathy, no thyroid enlargement, no carotid bruits. Lungs: Clear to auscultation without crackles or wheezes no rhonchi, no deformity. Chest Wall: Chest wall normal expansion with deep inspiration no tenderness and no deformity was found on exam, no costochondral pain or discomfort. Left breast assessed per patient request, no signs of mastitis. Heart: Regular rate and rhythm, S1, S2 normal, no murmur, rub or gallop. Back: Symmetric, no curvature, ROM normal. Positive left CVA tenderness, i mproved from yesterday. Abdomen: Soft, mild epigastric tenderness, bowel sounds active all four quadrants, no masses, no organomegaly. Extremities: Extremities normal, atraumatic, no cyanosis or edema. Pulses: 2+ and symmetric. Skin: Skin color, texture, turgor normal, no rashes or lesions. Neurologic: Alert oriented x3 cranial nerves II through XII intact, no motor deficit, no abnormal balance or gait. ASSESSMENT AND PLAN: _Sepsis secondary to acute left pyelonephritis: Has been on Rocephin started on Rocephin Since admission her white blood cells are down to 13,000 hemoglobin 8.6 has been stable so far on medication going back to her culture shows Proteus mirabilis susceptible to all antibiotics patient be switched to ciprofloxacin orally 250 mg twice a day to complete total of 10 days to finish her management for pyelo. _Acute kidney injury secondary to pyelonephritis: Creatinine at time of admission was 1.7, now 0.9. Continue IV hydration for 1 more day, tomorrow morning patient creatinine and GFR are back to normal. _History of uretal stricture s/p uretal stent: Stent changed [address] Dunlap. Seeing urology and review her films at this point no need to manipulate or remove the stent yet or replace it with maybe after the infection is gone this is something can be done as an outpatient if needed. _Fall secondary to weakness and debility: No injury from fall on 09/06, fall prevention measures increased. Will have PT come work with patient to increase strength and stability. _Reactive tachycardia with pulse rates up to 120 beats per minutes will resume her metoprolol at full dose watch the patient carefully hydration and reassess patient in next 24 hours. _Metastatic colon cancer, currently undergoing chemotherapy: Has been holding chemo for now she is seen oncology will resume medication as soon as patient is feeling better or by next week when she sees oncology after she leaves hospital. _History of left breast cancer treated with recision and radiotherapy: Continue tamoxifen. This did have slight irritation and discomfort and worry about recurrent cellulitis of the left breast there is nothing more than scar tissue and apparently patient has been seeing Dr. Murillo and was advised to do total mastectomy with something patient might have to do in the next few months. _Hypertension: Maintained on valsartan and metoprolol at home. On admission metoprolol was held originally but resume at 25 mg. Will increase it up to 100 mg daily for now patient is off hydralazine. _Anxiety: continue diazepam as needed. _DVT prophylaxis: Knee-high TRAVON hose and Venodyne boots. Disposition: Discharge home. Discussion: She is stable doing very well will be discharged home today with family to be seen in the office in the next few days. Hospital course: She was admitted to the hospital on with complaint of severe left-sided flank pain hematuria nausea vomiting she had more systemic symptoms consistent with fever chills slight confusion lightheadedness and dizziness upon presentation to the emergency department her pulse rate was 116 with blood pressure 215/102 with white blood cell was 16.6 bun 29 creatinine 1.7 with GFR of 32 she had positive UA with white blood cell 1 82,[address] of the abdomen at the time showed inflammation and change in the left kidney and ureter consistent with pyelonephritis and mild to moderate hydronephrosis. Patient was started on IV Rocephin was diagnosed with pyelonephritis at the time and admitted to the hospital waiting for blood culture urine culture infectious disease and urology consultation. Patient continues to have slight hematuria hypertension and quite symptoms with hydration and IV antibiotic her symptoms started improving gradually her creatinine dropped down and improve up to 0.9 the day before discharge. Her white blood cell improved as well and down close to be normal. Consult with urology felt there is no reason for any intervention to remove the stent was placed in the ureter over a month ago to leave alone for now finish the treatment for pyelonephritis and eventually to see her as an outpatient and decide on further management from the stent. Patient cancer treatment including her treatment for colon cancer was held while she was in the hospital seeing oncology no further management. Her culture came back positive for Proteus mirabilis susceptible to all antibiotics patient will be started on Cipro and discharged home on Cipro. Supposed to go home on 09/05/2023 developed to have reactive tachycardia and mild hypotension with slight lightheadedness will start back on hydration of her metoprolol to 100 mg daily as she was doing it before admission patient has done slightly better EKG showed only reactive tachycardia with no A-fib or a flutter. Patient is doing well she is not symptomatic anymore feeling more stable to ambulate with a walker she will be going home with family to follow with visiting nurse will follow as an outpatient by urology in our office for the next few days. Patient is stable to be discharged home today on 09/10/2023. Time spent on patient discharge with over 35 minutes. Patient Condition at Discharge: Serious Plan - Discharge Summary Discharge Rx Participant: No New Discharge Prescriptions: New Scopolamine 1 mg/72 Hr Patch [TransDerm Scop] 1 patch TRANSDERM Q72H #3 patch cefUROXime axetiL [Ceftin] 500 mg PO BID 10 Days #20 tab Continue Multivitamins, Thera [Multivitamin (formulary)] 1 tab PO DAILY Tamoxifen Citrate 20 mg PO DAILY Cyanocobalamin [Vitamin B-12] 1,000 mcg PO DAILY Cholecalciferol [Vitamin D3 (25 Mcg = 1000 Iu)] 50 mcg PO DAILY Prochlorperazine Maleate 10 mg PO Q6H PRN PRN Reason: Nausea Cetuximab [Erbitux] 1 dose IV Q7D Valsartan 320 mg PO DAILY Betamethasone Dipropionate [Betamethasone Dipropionate 0.05% Cream] 1 applic TOPICAL DAILY PRN PRN Reason: Rash Ascorbic Acid [Vitamin C] 1,000 mg PO DAILY Vitamin E (Dl,Tocopheryl Acet) [Vitamin E (400 Iu = 180 mg)] 400 unit PO DAILY Encorafenib [Braftovi] 300 mg PO DAILY Metoprolol Succinate (ER) [Toprol XL] 25 mg PO DAILY diazePAM [Valium] 1 mg PO TID PRN PRN Reason: Anxiety DULoxetine HCL [Cymbalta] 60 mg PO Q48H Changed Metoprolol Succinate (ER) [Toprol XL] 50 mg PO DAILY #0 Discharge Medication List Multivitamins, Thera [Multivitamin (formulary)] 1 tab PO DAILY 07/10/17 [History] Tamoxifen Citrate 20 mg PO DAILY 12/16/17 [History] Cholecalciferol [Vitamin D3 (25 Mcg = 1000 Iu)] 50 mcg PO DAILY 05/02/20 [History] Cyanocobalamin [Vitamin B-12] 1,000 mcg PO DAILY 05/02/20 [History] Ascorbic Acid [Vitamin C] 1,000 mg PO DAILY 06/05/22 [History] Cetuximab [Erbitux] 1 dose IV Q7D 09/04/22 [History] Prochlorperazine Maleate 10 mg PO Q6H PRN 09/04/22 [History] Valsartan 320 mg PO DAILY 09/04/22 [History] Vitamin E (Dl,Tocopheryl Acet) [Vitamin E (400 Iu = 180 mg)] 400 unit PO DAILY 07/02/23 [History] Betamethasone Dipropionate [Betamethasone Dipropionate 0.05% Cream] 1 applic TOPICAL DAILY PRN 09/05/23 [History] DULoxetine HCL [Cymbalta] 60 mg PO Q48H 09/05/23 [History] Encorafenib [Braftovi] 300 mg PO DAILY 09/05/23 [History] Metoprolol Succinate (ER) [Toprol XL] 25 mg PO DAILY 09/05/23 [History] diazePAM [Valium] 1 mg PO TID PRN 09/05/23 [History] Metoprolol Succinate (ER) [Toprol XL] 50 mg PO DAILY #0 09/09/23 [Rx] Scopolamine 1 mg/72 Hr Patch [TransDerm Scop] 1 patch TRANSDERM Q72H #3 patch 09/09/23 [Rx] cefUROXime axetiL [Ceftin] 500 mg PO BID 10 Days #20 tab 09/09/23 [Rx] Follow up Appointment(s)/Referral(s): [facility], [NON-STAFF] - As Needed Josefa Asif MD [Primary Care Provider] - 1-2 days (patient alreay has appointment ) Krystian Dunlap MD [STAFF PHYSICIAN] - 09/18/23 10:00 am [facility] [NON-STAFF] - As Needed (walker) Discharge Disposition: HOME WITH HOME HEALTH SERVICES
[2023-09-10] MEDS: METOPROLOL SUCCINATE (ER) 100 MG TAB.ER.24H PO SCH (08:30)
[2023-09-10] MEDS ORDERED: METOPROLOL SUCCINATE (ER) 100 MG TAB.ER.24H PO SCH (09:00)
--- NOTE | 2023-09-10 09:42 | P.CRDCN ---
History of Present Illness Consult date: 09/10/23 Reason for Consult (text): Tachycardia and dizziness History of present illness: This is this is a 68-year-old female patient of Dr. Faby Rosas with past medical history of sinus tachycardia, hypertension, family history of premature coronary artery disease. She also has a past medical history of breast cancer, and recent metastatic colon cancer on chemotherapy, as well as, left ureteral stent left hydroureteronephrosis. We have been asked to evaluate the patient for tachycardia and dizziness. Patient presented to the hospital on 09/04 with left- sided flank pain, hematuria, nausea and vomiting. She was diagnosed with sepsis secondary to acute left pyelonephritis, acute kidney injury. Yesterday, patient was prepared for discharge but was up and walking developed lightheadedness and dizziness as well as tachycardia. She had been resumed on metoprolol at a much lower dose than her home dose of 25 mg and was previously on 125 mg daily per patient. Patient was hydrated and beta-ohney was increased. Her heart rates today are improved in the 90s. She is prepared for discharge home today. Blood pressure 143/78, heart rate 97, pulse ox 95% on room air. EK/24 #1 sinus tachycardia at 111 bpm, #2 sinus tachycardia at 114 bpm. Laboratory studies: WBC 13.6 improved from peak of 21, hemoglobin 8.6. Sodium 137, potassium 3.7, BUN 15 and creatinine 0.9 improved from 1.7. Home cardiac medications: Valsartan 320 mg daily, Toprol XL 100 mg daily +25 mg daily, Review Of Systems: At the time of my exam: CONSTITUTIONAL: Denies fever or chills. HEENT: Denies blurred vision, vision changes, or eye pain. Denies hemoptysis CARDIOVASCULAR: Denies chest pain. Denies orthopnea. Denies PND. Denies palpitations RESPIRATORY: Denies shortness of breath. GASTROINTESTINAL: Denies abdominal pain. Denies nausea or vomiting. HEMATOLOGIC: Denies bleeding disorders. GENITOURINARY: Denies any blood in urine. SKIN: Denies puritis. Denies rash. Physical examination: Gen: This is a 68-year-old female in no acute distress VS: reviewed HEENT: Head is atraumatic, normocephalic. Pupils equal, round. Sclerae is anicteric. NECK: Supple. No JVD. LUNGS: Clear to auscultation. No wheezes or rhonchi. No intercostal retractions. HEART: Regular rate and rhythm. No murmur. ABDOMEN: Soft No tenderness. EXTREMITIES: No pedal edema. No calf tenderness. NEUROLOGICAL: Patient is awake, alert and oriented x3. Assessment: Sinus tachycardia History of inappropriate sinus tachycardia Hypertension Sepsis with acute left pyelonephritis Acute kidney injury, resolved Plan: Continue patient's home cardiac medications Continue Toprol XL at her home dose of 125 mg daily Obtain 2-D echocardiogram and Doppler study to assess cardiac structure and function Patient is cleared for discharge following echocardiogram and will follow-up in the office with Dr. Faby Rosas in 4 weeks. Thank you kindly for this consultation. Nurse practitioner note has been reviewed, I agree with documented findings and plan of care. Patient was seen and examined. Past Medical History Past Medical History: Cancer, Hypertension, Osteoarthritis (OA), Pneumonia, Renal Disease Additional Past Medical History / Comment(s): LT BREAST CANCER, colon cancer stage II-METS TO OVARIES, METS to both lungs. Currently on chemo (09/05/23), History of Any Multi-Drug Resistant Organisms: None Reported Past Surgical History: Bowel Resection, Breast Surgery, Cholecystectomy, Hysterectomy Additional Past Surgical History / Comment(s): LT BREAST LUMPECTOMY-RADIATION, COLONOSCOPY, HAS PORT A CATH, left ureteral stent. Past Anesthesia/Blood Transfusion Reactions: No Reported Reaction Additional Past Anesthesia/Blood Transfusion Reaction / Comment(s): No problems with previous blood transfusion. Past Psychological History: Depression Smoking Status: Former smoker Past Alcohol Use History: Occasional Additional Past Alcohol Use History / Comment(s): STARTED SMOKING AT AGE 20 qu it December 2017. Past Drug Use History: None Reported - Past Family History Mother Family Medical History: COPD, Dementia Father Family Medical History: AFIB, Cancer Additional Family Medical History / Comment(s): Lung cancer. Sister(s) Family Medical History: Cancer Additional Family Medical History / Comment(s): VOCAL CORD CANCER Medications and Allergies Home Medications Medication Instructions Recorded Confirmed Type Multivitamins, Thera [Multivitamin 1 tab PO DAILY 07/10/17 09/05/23 History (formulary)] Tamoxifen Citrate 20 mg PO DAILY 12/16/17 09/05/23 History Cholecalciferol [Vitamin D3 (25 50 mcg PO DAILY 05/02/20 09/05/23 History Mcg = 1000 Iu)] Cyanocobalamin [Vitamin B-12] 1,000 mcg PO DAILY 05/02/20 09/05/23 History Ascorbic Acid [Vitamin C] 1,000 mg PO DAILY 06/05/22 09/05/23 History Cetuximab [Erbitux] 1 dose IV Q7D 09/04/22 09/05/23 History Prochlorperazine Maleate 10 mg PO Q6H PRN 09/04/22 09/05/23 History Valsartan 320 mg PO DAILY 09/04/22 09/05/23 History Vitamin E (Dl,Tocopheryl Acet) 400 unit PO DAILY 07/02/23 09/05/23 History [Vitamin E (400 Iu = 180 mg)] Betamethasone Dipropionate 1 applic TOPICAL DAILY PRN 09/05/23 09/05/23 History [Betamethasone Dipropionate 0.05% Cream] DULoxetine HCL [Cymbalta] 60 mg PO Q48H 09/05/23 09/05/23 History Encorafenib [Braftovi] 300 mg PO DAILY 09/05/23 09/07/23 History diazePAM [Valium] 1 mg PO TID PRN 09/05/23 09/05/23 History Metoprolol Succinate (ER) [Toprol 50 mg PO DAILY #0 09/09/23 09/05/23 Rx XL] Scopolamine 1 mg/72 Hr Patch 1 patch TRANSDERM Q72H #3 patch 09/09/23 Rx [TransDerm Scop] cefUROXime axetiL [Ceftin] 500 mg PO BID 10 Days #20 tab 09/09/23 Rx Metoprolol Succinate (ER) [Toprol 100 mg PO DAILY #30 tab 09/10/23 Rx XL] Allergies Allergy/AdvReac Type Severity Reaction Status Date / Time No Known Allergies Allergy Verified 09/05/23 15:21 Physical Exam Vitals: Vital Signs Temp Pulse Pulse Resp BP BP Pulse Ox 09/10/23 07:01 99.1 F 97 22 143/78 95 09/10/23 01:23 98.7 F 98 16 160/73 95 09/09/23 19:07 98.8 F 84 17 149/83 98 09/09/23 15:38 109 H 07/24/24 15:30 170 H 121/86 96 09/09/23 14:00 98.3 F 132 H 18 151/64 96 09/09/23 10:26 18 Intake and Output 09/09/23 09/10/23 09/10/23 22:59 06:59 14:59 Other: Voiding Method Toilet # Voids 4 2 Results 09/08/23 04:20 09/08/23 04:20 Current Medications Generic Name Dose Route Start Last Admin Trade Name Catie PRN Reason Stop Dose Admin Acetaminophen 500 mg 09/06/23 10:50 09/09/23 00:23 Acetaminophen Tab 500 Mg Tab PO 500 mg Q6HR PRN Administration Fever and/ or Pain Ascorbic Acid 1,000 mg 09/06/23 13:30 09/09/23 09:09 Ascorbic Acid 500 Mg Tab PO 1,000 mg DAILY ESME Administration Cholecalciferol 50 mcg 09/07/23 09:00 09/09/23 09:09 Cholecalciferol 25 Mcg (1000 Iu) Tablet PO 50 mcg DAILY ESME Administration Cyanocobalamin 1,000 mcg 09/06/23 13:45 09/09/23 09:10 Cyanocobalamin 500 Mcg Tab PO 1,000 mcg DAILY ESME Administration Diazepam 1 mg 09/06/23 13:30 Diazepam 2 Mg Tab PO TID PRN Anxiety Duloxetine HCl 60 mg 09/06/23 14:00 09/08/23 14:24 Duloxetine Hcl 60 Mg Capsule.Dr PO 60 mg Q48H ESME Administration Hydralazine HCl 10 mg 09/05/23 16:59 09/09/23 06:40 Hydralazine Hcl 20 Mg/Ml 1 Ml Vial IVP 10 mg Q6HR PRN Administration Blood Pressure - High Hydromorphone HCl 1 mg 09/05/23 17:13 09/07/23 18:54 Hydromorphone 1 Mg/Ml 1 Ml Syringe IVP 1 mg Q3HR PRN Administration Pain Ceftriaxone Sodium 2 gm/ 50 mls @ 100 mls/hr 09/06/23 11:00 09/09/23 07:38 Sodium Chloride IVPB 100 mls/hr Q24HR ESME Administration Protocol Dextrose/Sodium Chloride 1,000 mls @ 75 mls/hr 09/09/23 13:30 09/10/23 02:21 Dextrose 5%-1/2ns Iv Soln IV 75 mls/hr .[id number] ESME Administration Metoprolol Succinate 25 mg 09/06/23 13:45 09/09/23 09:09 Metoprolol Succinate (Er) 25 Mg Tab.Er.24h PO 25 mg DAILY ESME Administration Metoprolol Succinate 100 mg 09/10/23 09:00 Metoprolol Succinate (Er) 100 Mg Tab.Er.24h PO DAILY ESME Multivitamins 1 each 09/06/23 13:45 09/09/23 09:09 Multivitamins, Thera 1 Each Tab PO 1 each DAILY ESME Administration Naloxone HCl 0.2 mg 09/05/23 15:13 Naloxone 0.4 Mg/Ml 1 Ml Vial IV Q2M PRN Opioid Reversal Ondansetron HCl 4 mg 09/05/23 16:59 09/09/23 13:27 Ondansetron 4 Mg/2 Ml Vial IVP 4 mg Q6HR PRN Administration Nausea And Vomiting Prochlorperazine Maleate 10 mg 09/06/23 13:30 09/08/23 10:57 Prochlorperazine 10 Mg Tab PO 10 mg Q6H PRN Administration Nausea Scopolamine 1 patch 09/07/23 15:00 09/07/23 15:59 Scopolamine 1 Mg/72 Hr Patch TRANSDERM 1 patch Q72H ESME Administration Tamoxifen Citrate 20 mg 09/06/23 13:45 09/09/23 09:09 Tamoxifen 10 Mg Tab PO 20 mg DAILY ESME Administration Valsartan 320 mg 09/07/23 09:00 09/09/23 09:09 Valsartan 160 Mg Tab PO 320 mg DAILY ESME Administration Intake and Output 09/09/23 09/10/23 09/10/23 22:59 06:59 14:59 Other: Voiding Method Toilet # Voids 4 2 09/08/23 04:20 09/08/23 04:20
--- NOTE | 2023-09-10 09:50 | P.PN ---
Subjective Progress Note Date: 09/09/23 Principal diagnosis: Reason for follow-up is UTI and bacteremia Patient is a 68-year-old female with a past medical history significant for hypertension osteoarthritis metastatic colon cancer last chemo was 09/05/2023 history of left breast cancer patient also have a left ureteral stent placement for hydronephrosis presenting to the hospital for evaluation left-sided flank pain hematuria patient was noticed to have a sepsis with gram- negative bacteremia On today's evaluation that is 09/09/2023, Patient is afebrile patient is currently on room air and denies having any shortness of breath, the patient denies any chest pain or cough, the patient denies any nausea vomiting still complain of some left-sided abdominal pain no urinary symptoms. No new labs were obtained today blood culture and urine with Proteus Objective - Vital Signs Vital signs: Vital Signs Temp 98 F 09/09/23 06:50 Pulse 97 09/09/23 06:50 Resp 18 09/09/23 10:26 BP 157/82 09/09/23 06:50 Pulse Ox 94 L 09/09/23 06:50 FiO2 Intake & Output 09/08/23 09/09/23 09/09/23 18:59 06:59 18:59 Other: # Voids 4 7 - Exam GENERAL DESCRIPTION: An elderly female lying in bed in no distress RESPIRATORY SYSTEM: Unlabored breathing , decreased breath sounds at bases HEART: S1 S2 regular rate and rhythm , ABDOMEN: Soft , no tenderness EXTREMITIES: No edema feet - Labs CBC & Chem 7: 09/08/23 04:20 09/08/23 04:20 Labs: Microbiology - Last 24 Hours (Table) 09/05/23 14:50 Blood Culture Gram Stain - Final Blood Blood Culture - Final Proteus mirabilis 09/05/23 15:00 Blood Culture Gram Stain - Final Blood Blood Culture - Final Proteus mirabilis Molecular ID Assessment and Plan (1) Bacteremia Current Visit: Yes Status: Acute Priority: High Code(s): R78.81 - BACTEREMIA SNOMED Code(s): 6118949 (2) Pyelonephritis Current Visit: Yes Status: Acute Priority: High Code(s): N12 - TUBULO- INTERSTITIAL NEPHRITIS, NOT SPCF ACUTE OR CHRONIC SNOMED Code(s): 81201312 (3) Sepsis Current Visit: Yes Status: Acute Code(s): A41.9 - SEPSIS, UNSPECIFIED ORG ANISM SNOMED Code(s): 95658235 Plan: 1patient presented hospital with sepsis in this patient who did have fever tachycardia elevated white count source and likely left-sided pyelonephritis possible complicated UTI as patient did have a history of obstructed kidney requiring ureteral stent placement 9 months ago. 2Proteus bacteremia source likely left-sided pyelonephritis. 3patient to continue with Rocephin 2 g daily while inpatient will finish therapy with oral Ceftin on discharge prescription has been sent Cipro discontinued because of drug interaction with SSRI Dictation was produced using [employer] dictation software. please excuse any grammatical, word or spelling errors. Time with Patient: Less than 30
[2023-09-10 14:29] VITALS: BP 158/76; PULSE 84; RESP 20; TEMP 98.3
[2023-09-10 15:55] VITALS: BMI 30.5
--- NOTE | 2023-09-10 16:11 | P.PN ---
Subjective Progress Note Date: 09/10/23 Principal diagnosis: Reason for follow-up is UTI and bacteremia Patient is a 68-year-old female with a past medical history significant for hypertension osteoarthritis metastatic colon cancer last chemo was 09/05/2023 history of left breast cancer patient also have a left ureteral stent placement for hydronephrosis presenting to the hospital for evaluation left-sided flank pain hematuria patient was noticed to have a sepsis with gram- negative bacteremia On today's evaluation that is 09/10/2023, patient has been afebrile, patient is breathing comfortably and is currently on room air, patient denies having any significant cough no chest pain shortness of breath, patient denies nausea vomiting or diarrhea and no abdominal pain, mention feeling better. Patient did not have any lab draw today Objective - Vital Signs Vital signs: Vital Signs Temp 99.1 F 09/10/23 07:01 Pulse 97 09/10/23 07:01 Resp 22 09/10/23 07:01 BP 143/78 09/10/23 07:01 Pulse Ox 95 09/10/23 07:01 FiO2 Intake & Output 09/09/23 09/10/23 09/10/23 18:59 06:59 18:59 Intake Total 0 Balance 0 Intake: Oral 0 Other: Voiding Method Toilet # Voids 4 2 - Exam GENERAL DESCRIPTION: An elderly female lying in bed in no distress RESPIRATORY SYSTEM: Unlabored breathing , decreased breath sounds at bases HEART: S1 S2 regular rate and rhythm , ABDOMEN: Soft , no tenderness EXTREMITIES: No edema feet - Labs CBC & Chem 7: 09/08/23 04:20 09/08/23 04:20 Assessment and Plan (1) Bacteremia Current Visit: Yes Status: Acute Priority: High Code(s): R78.81 - BACTEREMIA SNOMED Code(s): 7827108 (2) Pyelonephritis Current Visit: Yes Status: Acute Priority: High Code(s): N12 - TUBULO- INTERSTITIAL NEPHRITIS, NOT SPCF ACUTE OR CHRONIC SNOMED Code(s): 49113919 (3) Sepsis Current Visit: Yes Status: Acute Code(s): A41.9 - SEPSIS, UNSPECIFIED ORGANISM SNOMED Code(s): 20131776 Plan: 1patient presented hospital with sepsis in this patient who did have fever tachycardia elevated white count source and likely left-sided pyelonephritis possible complicated UTI as patient did have a history of obstructed kidney requiring ureteral stent placement 9 months ago. 2Proteus bacteremia source likely left-sided pyelonephritis. 3patient to continue with Rocephin 2 g daily while inpatient will finish therapy with oral Ceftin prescription was sent to the pharmacy yesterday and close outpatient follow-up Dictation was produced using [employer] dictation software. please excuse any grammatical, word or spelling errors.
--- NOTE | 2023-09-10 17:22 | CA ---
Transthoracic Echo Report Name: Dilma Payne Age: 68 Gender: F : 1955 Exam Date: 09/10/2023 14:59 Exam Location: [facility] Ht (in): 67 Wt (lb): 195 Ordering Physician: Opal Moreno Attending/Referring Phys: [id number], Tiffanie Longshore Equipment Operator Tamia Wells RDCS Procedure CPT: Indications: LVF Cardiac Hx: Technical Quality: Technically difficult study Contrast 1: Definity Total Dose (mL): 2 Contrast 2: Total Dose (mL): MEASUREMENTS (Male / Female) Normal Values 2D ECHO LV Diastolic Diameter PLAX 3.3 cm 4.2 - 5.9 / 3.9 - 5.3 cm LV Systolic Diameter PLAX 2.3 cm IVS Diastolic Thickness 1.5 cm 0.6 - 1.0 / 0.6 - 0.9 cm LVPW Diastolic Thickness 1.3 cm 0.6 - 1.0 / 0.6 - 0.9 cm LV Relative Wall Thickness 0.9 RV Internal Dim ED PLAX 2.3 cm LA Volume 44.8 cm??? 18 - 58 / 22 - 52 cm??? LA Volume Index 21.6 cm???/m??? 16 - 28 cm???/m??? M-MODE Aortic Root Diameter MM 2.5 cm LA Systolic Diameter MM 3.5 cm LA Ao Ratio MM 1.4 AV Cusp Separation MM 1.2 cm DOPPLER AV Peak Velocity 181.8 cm/s AV Peak Gradient 13.2 mmHg AV Mean Velocity 122.0 cm/s AV Mean Gradient 6.8 mmHg AV Velocity Time Integral 36.2 cm LVOT Peak Velocity 126.3 cm/s LVOT Peak Gradient 6.4 mmHg LVOT Velocity Time Integral 24.5 cm MV Area PHT 3.2 cm??? Mitral E Point Velocity 62.9 cm/s Mitral A Point Velocity 87.9 cm/s Mitral E to A Ratio 0.7 MV Deceleration Time 234.0 ms MV E' Velocity 4.9 cm/s Mitral E to MV E' Ratio 12.9 TR Peak Velocity 206.8 cm/s TR Peak Gradient 17.1 mmHg Right Ventricular Systolic Press 22.1 mmHg FINDINGS Left Ventricle Moderately increased left ventricular wall thickness. Left ventricular cavity size normal. Normal left ventricular systolic function with no obvious regional wall motion abnormalities. Left ventricular ejection fraction is estimated at 55-60 %. Grade 1 diastolic dysfunction. Right Ventricle Normal right ventricular size and function. Right ventricular systolic pressure within normal limits. Right Atrium Normal right atrial size. Left Atrium Normal left atrial size. Mitral Valve Structurally normal mitral valve. Mild mitral annular calcification. Mild mitral regurgitation. Aortic Valve Trileaflet aortic valve. No aortic valve stenosis or regurgitation. Aortic valve sclerosis. Tricuspid Valve Structurally normal tricuspid valve. Mild tricuspid regurgitation. Pulmonic Valve Structurally normal pulmonic valve. Pericardium No pericardial effusion. Aorta Normal size aortic root and proximal ascending aorta. CONCLUSIONS Normal LV Previewed by: Dr. Doroteo Rosas MD (Electronically Signed) Final Date: 10 September 2023 17:21
== END 2023-09-10 15:57 | disposition home health service (06) | DRG 872 ==
LOC: EC 11:23 → 4SSUR 14:09
PROVIDERS: ADMIT Internal Medicine Geriatric Medicine; ATTEND Internal Medicine Geriatric Medicine
DX: A41.59 Other Gram-negative sepsis (principal); C78.01 Secondary malignant neoplasm of right lung; C78.02 Secondary malignant neoplasm of left lung; C79.62 Secondary malignant neoplasm of left ovary; N17.9 Acute kidney failure, unspecified; I47.11 Inappropriate sinus tachycardia, so stated; N13.6 Pyonephrosis; C19 Malignant neoplasm of rectosigmoid junction; I95.9 Hypotension, unspecified; F32.A Depression, unspecified; I10 Essential (primary) hypertension; Z17.0 Estrogen receptor positive status [ER+]; E86.0 Dehydration; F41.9 Anxiety disorder, unspecified; K57.30 Diverticulosis of large intestine without perforation or abscess without bleeding; R31.0 Gross hematuria; M19.90 Unspecified osteoarthritis, unspecified site; Z79.810 Long term (current) use of selective estrogen receptor modulators (SERMs); Z79.899 Other long term (current) drug therapy; Z87.891 Personal history of nicotine dependence; Z85.3 Personal history of malignant neoplasm of breast; Z92.3 Personal history of irradiation; W18.11XA Fall from or off toilet without subsequent striking against object, initial encounter; Y92.231 Patient bathroom in hospital as the place of occurrence of the external cause
CPT/HCPCS: 36415; 70450; 74177; 76770; 80053; 81001; 82150; 83605; 83690; 85025; 85027; 87040; 87077; 87086; 87186; 93005; 93306; 96361; 96365; 96375; 96376; 99285

== ENCOUNTER → 2023-10-09 | Outpatient (CLI) | payer MEDICARE, BC ==
--- NOTE | 2023-10-27 12:44 | CT ---
Patient: Dilma Payne Ordering Physician: Unknown, Unknown ID: [id number] Phone, Pager: Phone: N/ A Pager: N/A : 1955 Age/Gender: 68Y, N/A Primary Location: N/A Procedure: CT ChestAbdPelvis w con Study Date: 10/09/2023 11:08:00 AM EXAMINATION TYPE: CT ChestAbdPelvis w con DATE OF EXAM: 10/09/2023 INDICATION: Colon cancer COMPARISON: None CT DLP: 1961.4 mGycm CONTRAST: Performed with Oral Contrast and with IV Contrast, patient injected with 100 mL of Isovue 300. TECHNIQUE: Axial images at 5 mm thick sections. Reconstructed images in the coronal plane. Delayed images through the kidneys. FINDINGS: CT CHEST: Portion of the thyroid visualized is normal. There is an infiltrate in the periphery of the anterior left upper lung field, series 4 image 22. Thi s measures 2.7 x 2.4 cm. Some consolidation or mass density appears to be above the bilateral diaphragms best visualized on natan ng windows. These areas correspond to underlying mass type density along the left mediastinal border, example image series 3 image 36 measuring 3.7 x 2.6 cm. Some increased densities in the medial right lower lobe measuring 4.0 x 3.0 cm. Additional workup for neoplasm is recommended with PET/CT. No enlarged mediastinal or hilar adenopathy is evident. The ascending aorta diameter at the level of the main pulmonary artery is 3.0 cm. The main pulmonary artery diameter at the bifurcation is 2.[address] ABDOMEN: Some vague increased densities along the anterior left lateral intraperitoneal region. So me omental caking may be present. Liver: Normal Spleen: Normal Pancreas: Normal Adrenal glands: The adrenal glands are normal. Gallbladder: Surgically absent Kidneys: No masses are evident. Mild hydronephrosis appears to be present bilaterally. Ureteral stent is on the left. This extends to the urinary bladder. No cysts are present. Delayed images were obta ined through the kidneys, which remain unremarkable. Aorta: Vascular calcification is within the aorta. Inferior vena cava: Normal. CT PELVIS: Subcutaneous nodules along the left posterior flank above the iliac crest measuring 2.1 x 2.9 cm. Series 3 image 77 Loops of bowel within the abdomen and pelvis are normal. There are loops of bowel which are incom pletely distended or lack oral contrast limiting their evaluation. Appendix: Not identified. No dilated tubular structure or inflammatory changes evident. Urinary bladder: Decompressed with limited evaluation Genitourinary structures: Uterus is not well visualized. Adnexal regions appear normal. Osseous structures: No suspicious lytic or sclerotic lesions. IMPRESSION: 1. Soft tissue density versus consolidation and atelectasis bilateral lower lung ferreira. Additional w orkup with PET CT is recommended. Neoplasm is not excluded. 2. There may be some mild omental caking along the anterior left intraperitoneal surface. 3. Mild bilateral hydronephrosis. Left ureteral stent is present. 4. Subcutaneous soft tissue nodule left posterior lower flank
== END | disposition home or self-care (01) ==
LOC: RADCTMAIN 08:57
PROVIDERS: ATTEND Internal Medicine Hematology & Oncology
DX: C18.2 Malignant neoplasm of ascending colon (principal); R91.1 Solitary pulmonary nodule; D05.12 Intraductal carcinoma in situ of left breast; D47.2 Monoclonal gammopathy; N13.30 Unspecified hydronephrosis; Z96.0 Presence of urogenital implants
CPT/HCPCS: 71260; 74177; 36415; Q9967

== ENCOUNTER → 2023-12-09 | Outpatient (CLI) | payer MEDICARE, BC ==
--- NOTE | 2023-12-09 11:09 | MM ---
Reason for Exam: Follow-up at short interval from prior study. Last mammogram was performed 1 year(s) and 3 month(s) ago. Patient History: Menarche at age 15. First Full-Term at age 24. Left ovary removed at age 64. Right ovary removed at age 64. Hysterectomy at age 64. Postmenopausal. Breast cancer, left, age 62. Colorectal cancer, age 62. Ovarian cancer. Other cancer. Previous chest radiation therapy at age 62. Previous chemotherapy. Patient used Hormonal Contraceptives for 1 year. 08/12/2017, Lumpectomy on the Left side. 08/12/2017, Malignant Core Biopsy on the left side. 07/16/2017, High risk Core Biopsy on the right side. 07/16/2017, High risk Core Biopsy on the left side. 2018, Radiation Therapy on the left side. Paternal grandmother had breast cancer, age 50. Paternal aunt had breast cancer, age 50. Tissue Density: The breasts are heterogeneously dense, which may obscure small masses. Findings: Analyzed By CAD. Postoperative distortion left breast from prior lumpectomy and radiation therapy. No evidence for mass within the right breast. No recurrent mass seen. No suspicious microcalcifications. Overall Assessment: Benign, BI-RAD 2 Management: Diagnostic Mammogram of both breasts in 1 year. . Results were given to the patient verbally at the time of exam. Patient should continue monthly self-breast exams. A clinical breast exam by your physician is recommended on an annual basis. This exam should not preclude additional follow-up of suspicious palpable abnormalities. Note on Katelin scores and lifetime risk: 1. A Katelin score greater than 3% is considered moderate risk. If this is the case, consider specialist referral to assess eligibility for a risk reducing agent. 2. If overall lifetime risk for the development of breast cancer is 20% or higher, the patient may qualify for future screening with alternating mammogram and breast MRI. [facility], , 12/09/2023 11:06 AM. Electronically signed and approved by: Onur Bowling M.D. Radiologis
== END | disposition home or self-care (01) ==
LOC: RADMAMWWP 10:34
PROVIDERS: ATTEND Radiology Radiation Oncology
DX: C78.01 Secondary malignant neoplasm of right lung (principal); C78.02 Secondary malignant neoplasm of left lung; R91.8 Other nonspecific abnormal finding of lung field; C18.9 Malignant neoplasm of colon, unspecified; Z92.3 Personal history of irradiation; R92.333 Mammographic heterogeneous density, bilateral breasts; D05.12 Intraductal carcinoma in situ of left breast; Z08 Encounter for follow-up examination after completed treatment for malignant neoplasm; Z86.000 Personal history of in-situ neoplasm of breast; Z79.811 Long term (current) use of aromatase inhibitors; Z85.43 Personal history of malignant neoplasm of ovary; Z80.3 Family history of malignant neoplasm of breast
CPT/HCPCS: 77062; 77066

== ENCOUNTER 2023-12-10 08:25 | Day surgery (SDC) | payer MEDICARE, BC ==
--- NOTE | 2023-12-07 07:59 | P.GSHP ---
History of Present Illness H&P Date: 12/07/23 Chief Complaint: Right Hydronephrosis The patient is a 68-year-old white female with a history of multiple malignancies, including breast and colon cancer. She is now receiving systemic chemotherapy. She was found earlier this year to have left hydroureteronephrosis. She underwent cystoscopy with left ureteral stent insertion on 07/16/2022. At that time, she was found to have a left distal ureteral stricture, which was opened with balloon dilation. CT scan in August sh owed interval development of right hydronephrosis. A right retrograde pyelogram at that time showed no evidence of right hydronephrosis. She underwent left ureteral stent change most recently on 07/30/2023. A 24 cm, 7 Romansh double-J silicone ureteral stent was placed at that time. A recent urine culture has shown Proteus and Enterobacter, for which she is currently taking Bactrim DS. - Genitourinary (Female) Genitourinary: Denies dysuria, Denies hematuria Past Medical History Past Medical History: Cancer, Hypertension, Osteoarthritis (OA) Additional Past Medical History / Comment(s): LT BREAST CANCER, colon cancer stage II-METS TO OVARIES-with chemo. last chemo june 2020. METS to both lungs - continuing weekly infusions, replacing stent allowing kidney to drain. rt port a cath, current UTI (pt on abx per Dr Dunlap) History of Any Multi-Drug Resistant Organisms: None Reported Past Surgical History: Bowel Resection, Breast Surgery, Cholecystectomy, Hysterectomy Additional Past Surgical History / Comment(s): LT BREAST LUMPECTOMY-RADIATION, COLONOSCOPY, HAS PORT A CATH. lung bx Past Anesthesia/Blood Transfusion Reactions: No Reported Reaction Additional Past Anesthesia/Blood Transfusion Reaction / Comment(s): No problems with previous blood transfusion. Smoking Status: Former smoker - Past Family History Mother Family Medical History: COPD, Dementia Father Family Medical History: AFIB, Cancer Additional Family Medical History / Comment(s): Lung cancer. Sister(s) Family Medical History: Cancer Additional Family Medical History / Comment(s): VOCAL CORD CANCER Medications and Allergies Home Medications Medication Instructions Recorded Confirmed Type Multivitamins, Thera [Multivitamin 1 tab PO DAILY 07/10/17 12/04/23 History (formulary)] Tamoxifen Citrate 20 mg PO DAILY 12/16/17 12/04/23 History Cholecalciferol [Vitamin D3 (25 50 mcg PO DAILY 05/02/20 12/04/23 History Mcg = 1000 Iu)] Cyanocobalamin [Vitamin B-12] 5,000 mcg PO DAILY 05/02/20 12/04/23 History Ascorbic Acid [Vitamin C] 1,000 mg PO DAILY 06/05/22 12/04/23 History Cetuximab [Erbitux] 1 dose IV Q7D 09/04/22 12/04/23 History Prochlorperazine Maleate 10 mg PO Q6H PRN 09/04/22 12/04/23 History Valsartan 320 mg PO DAILY 09/04/22 12/04/23 History DULoxetine HCL [Cymbalta] 30 mg PO BID 09/05/23 12/04/23 History Encorafenib [Braftovi] 300 mg PO HS 09/05/23 12/04/23 History Metoprolol Succinate (ER) [Toprol 50 mg PO DAILY #0 09/09/23 12/04/23 Rx XL] Metoprolol Succinate (ER) [Toprol 100 mg PO DAILY #30 tab 09/10/23 12/04/23 Rx XL] Magnesium Oxide [Magnesium] 500 mg PO DAILY 12/04/23 12/04/23 History Scopolamine 1 mg/72 Hr Patch 1 patch TRANSDERM Q72H PRN 12/04/23 12/04/23 History [TransDerm Scop] Sulfamethoxazole/Trimethoprim 1 each PO BID 12/04/23 12/04/23 History [Sulfamethoxazole/Trimethoprim DS Tablet] Allergies Allergy/AdvReac Type Severity Reaction Status Date / Time No Known Allergies Allergy Verified 12/04/23 14:55 Surgical - Exam - General well developed, well nourished, no distress - Respiratory normal respiratory effort - Abdomen Abdomen: soft, non tender, no guarding, no rigid, no rebound - Genitourinary normal external genitalia - Psychiatric oriented to time, oriented to person, oriented to place, speech is normal, memory intact Assessment and Plan (1) Hydronephrosis with ureteral stricture, not elsewhere classified Status: Acute Code(s): N13.1 - HYDRONEPHROSIS W URETERAL STRICTURE, NEC SNOMED Code(s): 28305543 Plan: Cystoscopy, left ureteral stent change. The procedure has been reviewed in detail with the patient. She is aware of potential risks, which include anesthesia, infection, loss of ureteral access, and ureteral injury.
[2023-12-10] MEDS ORDERED: droPERidol 5 MG/2 ML VIAL IVP ONE (08:45)
[2023-12-10] MEDS ORDERED: HYDROmorphone 0.5 MG/0.5 ML SYRINGE IVP PRN (08:45)
[2023-12-10] MEDS: LACTATED RINGERS 1,000 ML IV SCH (09:15)
[2023-12-10] MEDS: IV FLUID CONTINUATION 1,000 ML IV ONE ×2 (09:15→11:03)
[2023-12-10] MEDS: LIDOCAINE 1% (10MG/ML) FOR IV START INTRADERMA PRN (09:15)
[2023-12-10 09:26] VITALS: TEMP 97.3
[2023-12-10] MEDS: DEXAMETHASONE SOD PHOSPHATE 4 MG/ML 1 ML VIAL IV ONE (09:26)
[2023-12-10] MEDS: ONDANSETRON 4 MG/2 ML VIAL IVP ONE (09:26)
[2023-12-10] MEDS ORDERED: fentaNYL (PF) 50 MCG/ML 2 ML AMP ONE (10:18)
[2023-12-10] MEDS ORDERED: MIDAZOLAM 2 MG/2 ML VIAL ONE (10:18)
[2023-12-10] MEDS ORDERED: PROPOFOL 10 MG/ML 20 ML VIAL IV ONE (10:18)
[2023-12-10] MEDS: IOPAMIDOL-300 100ML BTL MISCELLANE ONE ×2 (10:40)
--- NOTE | 2023-12-10 11:08 | P.OP ---
Date of Procedure: 12/10/23 Preoperative Diagnosis: Bilateral hydronephrosis Postoperative Diagnosis: Same Procedure(s) Performed: Cystoscopy, right retrograde pyelogram, left ureteral stent change Anesthesia: MAC Surgeon: Krystian Dunlap Estimated Blood Loss (ml): 0 IV fluids (ml): 500 Pathology: none sent Condition: stable Disposition: PACU Indications for Procedure: The patient is a 68-year-old white female with a history of multiple malignancies, including breast and colon cancer. She is now receiving systemic chemotherapy. She was found earlier this year to have left hydroureteronephrosis. She underwent cystoscopy with left ureteral stent insertion on 07/16/2022. At that time, she was found to have a left distal ureteral stricture, which was opened with balloon dilation. CT scan in August 2022 showed interval development of right hydronephrosis. A right retrograde pyelogram at that time showed no evidence of right hydronephrosis. She underwent left ureteral stent change most recently on 07/30/2023. A 24 cm, 7 Tanzanian double-J silicone ureteral stent was placed at that time. A recent urine culture has shown Proteus and Enterobacter, for which she is currently taking Bactrim DS. Her renal function is normal. CT scan Operative Findings: Successful left ureteral stent change. Left ureteral stent was calcified distally. No evidence of right hydronephrosis. Description of Procedure: The patient was taken to the operating room and placed in the dorsolithotomy position, with legs supported in Willie stirrups. The external genitalia was prepped and draped sterilely. The 30 lens was used to introduce the 22-Tanzanian Stortz cystoscopic sheath through the urethra and into the bladder under direct vision. The bladder was examined in its entirety. No abnormalities were seen, other than very mild edema of the right trigone. Grasping forceps were used to grasp the distal end of the left ureteral stent, which was removed along with the cystoscope. The distal end of the stent was calcified. The distal curl was cut away, allowing a 0.035 inch Glidewire to be passed through the stent and up to the left renal pelvis. The stent was removed, and the Glidewire was backloaded into the cystoscope, which was replaced into the bladder. A 26 cm, 7-Tanzanian double-J silicone ureteral stent was placed over the wire. Proper stent positioning was verified fluoroscopically and endoscopically. Next, a right retrograde pyelogram was performed using a 10 Tanzanian cone-tip catheter. Fluoroscopy was utilized to visualize the ureter, which was normal in course and caliber. There was no evidence of right hydronephrosis. The bladder was emptied and the cystoscope removed. The patient tolerated the procedure well was taken to the recovery room in stable condition.
[2023-12-10 11:23] VITALS: BP 116/74; PULSE 68; RESP 16
--- NOTE | 2023-12-10 13:05 | FL ---
Fluoroscopy for urography retrograde.. COMPARISON: 04/30/2023. TECHNIQUE: 16.8 seconds of fluoroscopy and 5 spot films were obtained. FINDINGS: Spot films display placement of a double-J left ureteral stent which appears to be in satisfactory po sition. A retrograde On the right was performed and there is no filling defect. IMPRESSION: 1. Successful placement of a left ureteral stent. 2. Right retrograde pyelography reveals no abnormality [facility], , 12/10/2023 1:03 PM
== END 2023-12-10 12:06 | disposition home or self-care (01) ==
LOC: OR 08:25
PROVIDERS: ATTEND Urology
CPT/HCPCS: 74420

== ENCOUNTER 2024-01-04 13:59 | Inpatient (IN) | payer MEDICARE, BC ==
[2024-01-04] MEDS ORDERED: HEPARIN SODIUM 1,000 UN/ML (10ML VL) IV PRN (14:55)
--- NOTE | 2024-01-04 14:58 | ED ---
General Adult HPI - General Chief complaint: Shortness of Breath Stated complaint: blood clot in lungs Time Seen by Provider: 01/04/24 14:17 Source: patient, RN notes reviewed, old records reviewed Mode of arrival: ambulatory Limitations: no limitations - History of Present Illness Initial comments: Patient is a 68-year-old female presenting to the emergency department with difficulty breathing. Onset of symptoms was 4 days ago. Symptoms are mostly with exertion, mild at rest. Patient is on chemotherapy with history of colon/ovarian/lung and breast cancer. Patient has mild discomfort of her chest. Patient had outpatient CT scan concerning for pulmonary embolism and was referred to emergency department. - Related Data Home Medications Medication Instructions Recorded Confirmed Multivitamins, Thera [Multivitamin 1 tab PO DAILY 07/10/17 12/04/23 (formulary)] Tamoxifen Citrate 20 mg PO DAILY 12/16/17 12/04/23 Cholecalciferol [Vitamin D3 (25 50 mcg PO DAILY 05/02/20 12/04/23 Mcg = 1000 Iu)] Cyanocobalamin [Vitamin B-12] 5,000 mcg PO DAILY 05/02/20 12/04/23 Ascorbic Acid [Vitamin C] 1,000 mg PO DAILY 06/05/22 12/04/23 Cetuximab [Erbitux] 1 dose IV Q7D 09/04/22 12/04/23 Prochlorperazine Maleate 10 mg PO Q6H PRN 09/04/22 12/04/23 Valsartan 320 mg PO DAILY 09/04/22 12/04/23 DULoxetine HCL [Cymbalta] 30 mg PO BID 09/05/23 12/04/23 Encorafenib [Braftovi] 300 mg PO HS 09/05/23 12/04/23 Magnesium Oxide [Magnesium] 500 mg PO DAILY 12/04/23 12/04/23 Scopolamine 1 mg/72 Hr Patch 1 patch TRANSDERM Q72H PRN 12/04/23 12/04/23 [TransDerm Scop] Sulfamethoxazole/Trimethoprim 1 each PO BID 12/04/23 12/04/23 [Sulfamethoxazole/Trimethoprim DS Tablet] Metoprolol Succinate (ER) [Toprol 25 mg PO DAILY 12/10/23 12/04/23 XL] Previous Rx's Medication Instructions Recorded Metoprolol Succinate (ER) [Toprol 100 mg PO DAILY #30 tab 09/10/23 XL] Allergies Allergy/AdvReac Type Severity Reaction Status Date / Time No Known Allergies Allergy Verified 01/04/24 14:10 Review of Systems ROS Statement: Those systems with pertinent positive or pertinent negative responses have been documented in the HPI. ROS Other: All systems not noted in ROS Statement are negative. Constitutional: Denies: fever Eyes: Denies: eye pain ENT: Denies: ear pain Respiratory: Reports: as per HPI, dyspnea Cardiovascular: Reports: as per HPI Endocrine: Denies: fatigue Gastrointestinal: Denies: abdominal pain Neurological: Denies: headache, weakness Past Medical History Past Medical History: Cancer Additional Past Medical History / Comment(s): LT BREAST CANCER, colon cancer sta ge II-METS TO OVARIES-with chemo. last chemo june 2020. METS to both lungs History of Any Multi-Drug Resistant Organisms: None Reported Past Surgical History: Bowel Resection, Breast Surgery, Cholecystectomy, Hysterectomy Additional Past Surgical History / Comment(s): LT BREAST LUMPECTOMY-RADIATION, COLONOSCOPY, HAS PORT A CATH Past Anesthesia/Blood Transfusion Reactions: No Reported Reaction Additional Past Anesthesia/Blood Transfusion Reaction / Comment(s): No problems with previous blood transfusion. Past Psychological History: No Psychological Hx Reported Smoking Status: Former smoker - Past Family History Mother Family Medical History: COPD, Dementia Father Family Medical History: AFIB, Cancer Additional Family Medical History / Comment(s): Lung cancer. Sister(s) Family Medical History: Cancer Additional Family Medical History / Comment(s): VOCAL CORD CANCER General Exam Limitations: no limitations General appearance: alert, in no apparent distress Head exam: Present: normocephalic Eye exam: Present: normal appearance Neck exam: Present: normal inspection Respiratory exam: Present: normal lung sounds bilaterally Cardiovascular Exam: Present: regular rate, normal rhythm GI/Abdominal exam: Present: soft. Absent: tenderness Extremities exam: Present: normal inspection. Absent: pedal edema, calf tenderness Neurological exam: Present: alert Psychiatric exam: Present: normal affect, normal mood Skin exam: Present: normal color Course Vital Signs 01/04/24 14:07 Temperature 98.3 F Pulse Rate 88 Respiratory 16 Rate Blood Pressure 126/80 O2 Sat by Pulse 94 L Oximetry EKG Findings - EKG Results: EKG: interpreted by ERMD, sinus rhythm, normal axis, normal QRS, normal ST/T Medical Decision Making - Medical Decision Making Was pt. sent in by a medical professional or institution (, KYA, SERVICE CONTROL OPERATOR, urgent care, hospital, or group home...) When possible be specific @ -Patient was sent in by oncology and radiology departments Did you speak to anyone other than the patient for history (EMS, parent, family, police, friend...)? What history was obtained from this source @ -No Did you review nursing and triage notes (agree or disagree)? Why? @ -I reviewed and agree with nursing and triage notes Were old charts reviewed (outside hosp., previous admission, EMS record, old EKG, old radiological studies, urgent care reports/EKG's, group home records)? Report findings @ -CT scan report reviewed from prior to arrival showing concern for pulmonary embolism Differential Diagnosis (chest pain, altered mental status, abdominal pain women, abdominal pain men, vaginal bleeding, weakness, fever, dyspnea, syncope, headache, dizziness, GI bleed, back pain, seizure, CVA, palpatations, mental health, musculoskeletal)? @ -Differential Dyspnea: Coronary syndrome, arrhythmia, tamponade, asthma, COPD, pulmonary embolism, pneumonia, pneumothorax, pulmonary effusion, anaphylaxis, diabetic ketoacidosis, flailed chest, pulmonary contusion, diaphragmatic rupture, anemia, neuromuscular, this is not meant to be an all-inclusive list. EKG interpreted by me (3pts min.). @ -As above X-rays interpreted by me (1pt min.). @ -None done CT interpreted by me (1pt min.). @ -None done U/S interpreted by me (1pt. min.). @ -None done What testing was considered but not performed or refused? (CT, X-rays, U/S, labs)? Why? @ -None What meds were considered but not given or refused? Why? @ -None Did you discuss the management of the patient with other professionals (professionals i.e. , KYA, SERVICE CONTROL OPERATOR, lab, RT, psych nurse, social work lecturer, business systems analyst, teacher, health promotion officer, case technician)? Give summary @ -Case was discussed with Dr. Buchanan who will admit covering Dr. Asif Was smoking cessation discussed for >3mins.? @ -No Was critical care preformed (if so, how long)? @ -32 minutes critical care Were there social determinants of health that impacted care today? How? (Homelessness, low income, unemployed, alcoholism, drug addiction, transportation, low edu. Level, literacy, decrease access to med. care, assisted, rehab)? @ -No Was there de-escalation of care discussed even if they declined (Discuss DNR or withdrawal of care, Hospice)? DNR status @ -No What co-morbidities impacted this encounter? (DM, HTN, Smoking, COPD, CAD, C ancer, CVA, ARF, Chemo, Hep., AIDS, mental health diagnosis, sleep apnea, morbid obesity)? @ -History of cancer on chemotherapy Was patient admitted / discharged? Hospital course, mention meds given and route, prescriptions, significant lab abnormalities, going to OR and other pertinent info. @ -Patient presents with diagnosis of pulmonary embolism from outpatient. Patient is on chemotherapy. Patient will be admitted with IV heparin and oncology consult. Admission orders written Undiagnosed new problem with uncertain prognosis? @ -No Drug Therapy requiring intensive monitoring for toxicity (Heparin, Nitro, Insulin, Cardizem)? @ -Heparin drip Were any procedures done? @ -No Diagnosis/symptom? @ -Pulmonary embolism Acute, or Chronic, or Acute on Chronic? @ -Acute Uncomplicated (without systemic symptoms) or Complicated (systemic symptoms)? @ -Default Side effects of treatment? @ -No Exacerbation, Progression, or Severe Exacerbation? @ -No Poses a threat to life or bodily function? How? (Chest pain, USA, NH, pneumonia, PE, COPD, DKA, ARF, appy, cholecystitis, CVA, Diverticulitis, Homicidal, Suicidal, threat to staff... and all critical care pts) @ -Threat to pulmonary function and oxygenation and life - Lab Data Result diagrams: 01/04/24 14:58 01/04/24 14:58 Lab Results 01/04/24 01/04/24 01/04/24 Range/Units 14:58 14:58 14:58 WBC 10.0 (3.8-10.6) k/uL RBC 3.76 L (3.80-5.40) m/uL Hgb 11.3 L (11.4-16.0) gm/dL Hct 35.2 (34.0-46.0) % MCV 93.7 (80.0-100.0) fL MCH 30.0 (25.0-35.0) pg MCHC 32.0 (31.0-37.0) g/dL RDW 15.3 (11.5-15.5) % Plt Count 318 (150-450) k/uL MPV 7.3 Neutrophils % 66 % Lymphocytes % 21 % Monocytes % 8 % Eosinophils % 2 % Basophils % 1 % Neutrophils # 6.6 (1.3-7.7) k/uL Lymphocytes # 2.1 (1.0-4.8) k/uL Monocytes # 0.8 (0-1.0) k/uL Eosinophils # 0.2 (0-0.7) k/uL Basophils # 0.1 (0-0.2) k/uL Sodium 139 (137-145) mmol/L Potassium 3.8 (3.5-5.1) mmol/L Chloride 106 (98-107) mmol/L Carbon Dioxide 24 (22-30) mmol/L Anion Gap 9 mmol/L BUN 21 H (7-17) mg/dL Creatinine 1.07 H (0.52-1.04) mg/dL Est GFR (CKD-EPI)AfAm 62 (>60 ml/min/1.73 sqM) Est GFR (CKD-EPI)NonAf 54 (>60 ml/min/1.73 sqM) Glucose 98 (74-99) mg/dL Plasma Lactic Acid Bradley 1.8 (0.7-2.0) mmol/L Calcium 9.0 (8.4-10.2) mg/dL Total Bilirubin 0.3 (0.2-1.3) mg/dL AST 22 (14-36) U/L ALT 16 (4-34) U/L Alkaline Phosphatase 97 (38-126) U/L Troponin I (0.000-0.034) ng/mL Total Protein 6.9 (6.3-8.2) g/dL Albumin 3.8 (3.5-5.0) g/dL 01/04/24 Range/Units 14:58 WBC (3.8-10.6) k/uL RBC (3.80-5.40) m/uL Hgb (11.4-16.0) gm/dL Hct (34.0-46.0) % MCV (80.0-100.0) fL MCH (25.0-35.0) pg MCHC (31.0-37.0) g/dL RDW (11.5-15.5) % Plt Count (150-450) k/uL MPV Neutrophils % % Lymphocytes % % Monocytes % % Eosinophils % % Basophils % % Neutrophils # (1.3-7.7) k/uL Lymphocytes # (1.0-4.8) k/uL Monocytes # (0-1.0) k/uL Eosinophils # (0-0.7) k/uL Basophils # (0-0.2) k/uL Sodium (137-145) mmol/L Potassium (3.5-5.1) mmol/L Chloride (98-107) mmol/L Carbon Dioxide (22-30) mmol/L Anion Gap mmol/L BUN (7-17) mg/dL Creatinine (0.52-1.04) mg/dL Est GFR (CKD-EPI)AfAm (>60 ml/min/1.73 sqM) Est GFR (CKD-EPI)NonAf (>60 ml/min/1.73 sqM) Glucose (74-99) mg/dL Plasma Lactic Acid Bradley (0.7-2.0) mmol/L Calcium (8.4-10.2) mg/dL Total Bilirubin (0.2-1.3) mg/dL AST (14-36) U/L ALT (4-34) U/L Alkaline Phosphatase (38-126) U/L Troponin I <0.012 (0.000-0.034) ng/mL Total Protein (6.3-8.2) g/dL Albumin (3.5-5.0) g/dL Critical Care Time Critical Care Time: Yes Disposition Clinical Impression: Pulmonary embolism Disposition: ADMITTED IP TO THIS [facility] Condition: Serious Is patient prescribed a controlled substance at d/c from ED?: No Referrals: Josefa Asif MD [Primary Care Provider] - 1-2 days Time of Disposition: 15:45
[2024-01-04] MEDS: HEPARIN SOD,PORK IN 0.45% NACL 25,000 UNIT in 0.45% NACL 1 250ML.BAG IV SCH (15:03)
[2024-01-04 15:14] LABS: Basophils # (A) 0.1 k/uL (0-0.2); Basophils % (A) 1 %; Eosinophils # (A) 0.2 k/uL (0-0.7); Eosinophils % (A) 2 %; HCT 35.2 % (34.0-46.0); HGB 11.3 gm/dL (11.4-16.0); Lymphocytes # (A) 2.1 k/uL (1.0-4.8); Lymphocytes % (A) 21 %; MCV 93.7 fL (80.0-100.0); Mean Platelet Volume 7.3; Monocytes # (A) 0.8 k/uL (0-1.0); Monocytes % (A) 8 %; Neutrophils # (A) 6.6 k/uL (1.3-7.7); Neutrophils % (A) 66 %; Platelet Count 318 k/uL (150-450); RBC 3.76 m/uL (3.80-5.40); RDW 15.3 % (11.5-15.5)
[2024-01-04 15:33] LABS: ALT 16 U/L (4-34); AST 22 U/L (14-36); African American GFR (CKD) 62 (>60 ml/min/1.73 sqM); Albumin 3.8 g/dL (3.5-5.0); Alkaline Phosphatase 97 U/L (38-126); Anion Gap 9 mmol/L; Blood Urea Nitrogen 21 mg/dL (7-17); Carbon Dioxide 24 mmol/L (22-30); Chloride 106 mmol/L (98-107); Glucose 98 mg/dL (74-99); Non-African American GFR(CKD) 54 (>60 ml/min/1.73 sqM); Potassium 3.8 mmol/L (3.5-5.1); Sodium 139 mmol/L (137-145); Total Bilirubin 0.3 mg/dL (0.2-1.3); Total Protein 6.9 g/dL (6.3-8.2)
[2024-01-04 15:42] LABS: INR 0.9 (<1.2)
[2024-01-04] MEDS ORDERED: ACETAMINOPHEN TAB 325 MG TAB PO PRN (15:50)
[2024-01-04] MEDS ORDERED: NALOXONE 0.4 MG/ML 1 ML VIAL IV PRN (15:50)
[2024-01-04] MEDS: PANTOPRAZOLE 40 MG/10 ML VIAL IV SCH (16:11)
[2024-01-04] MEDS ORDERED: SCOPOLAMINE 1 MG/72 HR PATCH TRANSDERM PRN (18:59)
[2024-01-04] MEDS ORDERED: PROCHLORPERAZINE 10 MG TAB PO PRN (18:59)
[2024-01-04] MEDS: ENCORAFENIB 75 MG PO SCH (20:07)
[2024-01-04] MEDS: DULoxetine HCL 60 MG CAPSULE.DR PO SCH (20:08)
[2024-01-04] MEDS: MAGNESIUM OXIDE 400 MG TAB PO SCH (20:08)
--- NOTE | 2024-01-05 02:41 | HP ---
HISTORY AND PHYSICAL CHIEF COMPLAINT: Shortness of breath. HISTORY OF PRESENT ILLNESS: This is a 68-year-old woman with a past medical history of multiple medical problems, being followed by Dr. Kwan in the outpatient setting, is complaining of shortness of breath for 3 or 4 days. The patient had a CT angio of the chest as an outpatient, which showed right-sided upper and middle lobe segmental pulmonary embolism, atelectasis. The patient is being admitted for further evaluation through the ER. At this time, there is no history of any fever, rigors, or chills. PAST MEDICAL HISTORY: History of left breast cancer, colon cancer stage 2 with mets to ovaries. Rest of the history and rest of the chart is also reviewed. HOME MEDICATIONS: Reviewed include valsartan. Dose and rest of medications noted, not confirmed yet. ALLERGIES: None. FAMILY HISTORY: History of dementia, lung cancer, COPD. SOCIAL HISTORY: Previous history of smoking. REVIEW OF SYSTEMS: Fourteen-point review is negative except as mentioned earlier. PHYSICAL EXAMINATION: VITAL SIGNS: Pulse is 88, blood pressure 127/80, respirations 16. HEENT: Conjunctivae normal. NECK: No JVD. CARDIOVASCULAR: S1, S2. RESPIRATIONS: Breath sounds diminished at the bases. Scattered rhonchi and crackles. ABDOMEN: Soft. LEGS: No edema. NERVOUS SYSTEM: Nonfocal. LABORATORY DATA: Reviewed. ASSESSMENT: 1. Shortness of breath with acute pulmonary embolism in the right upper and middle lobe segments. 2. Metastatic colon cancer. 3. History of left breast cancer. 4. Hypertension. 5. Multiple complex medical issues. RECOMMENDATIONS AND DISCUSSION: This is a 68-year-old woman, who presented with multiple complex medical issues. We will monitor the patient closely. We will initiate IV heparin. Consult Oncology and Pulmonology. Repeat labs in the morning. Otherwise, resume the home medications once they are confirmed. We will follow the patient closely and prognosis guarded. Further recommendations to follow. MMODL / IJN: [id number] /
[2024-01-05 06:53] LABS: Basophils # (A) 0.1 k/uL (0-0.2); Basophils % (A) 1 %; Eosinophils # (A) 0.3 k/uL (0-0.7); Eosinophils % (A) 4 %; HGB 10.3 gm/dL (11.4-16.0); Hypochromasia Slight; Lymphocytes # (A) 2.3 k/uL (1.0-4.8); Lymphocytes % (A) 34 %; MCH 30.4 pg (25.0-35.0); MCHC 32.1 g/dL (31.0-37.0); MCV 94.9 fL (80.0-100.0); Mean Platelet Volume 7.3; Monocytes # (A) 0.5 k/uL (0-1.0); Monocytes % (A) 7 %; Neutrophils # (A) 3.3 k/uL (1.3-7.7); Neutrophils % (A) 49 %; Platelet Count 280 k/uL (150-450); RBC 3.37 m/uL (3.80-5.40); RDW 15.2 % (11.5-15.5); WBC 6.7 k/uL (3.8-10.6)
[2024-01-05] MEDS: VALSARTAN 160 MG TAB PO SCH (07:30)
[2024-01-05] MEDS: MULTIVITAMINS, THERA 1 EACH TAB PO SCH (07:31)
[2024-01-05] MEDS: METOPROLOL SUCCINATE (ER) 50 MG TAB.ER.24H PO SCH (07:31)
[2024-01-05] MEDS: ASCORBIC ACID 500 MG TAB PO SCH (07:31)
[2024-01-05] MEDS: CYANOCOBALAMIN 500 MCG TAB PO SCH (07:31)
[2024-01-05] MEDS: CHOLECALCIFEROL 25 MCG (1000 IU) TABLET PO SCH (07:31)
[2024-01-05 08:07] LABS: African American GFR (CKD) >90 (>60 ml/min/1.73 sqM); Anion Gap 1 mmol/L; Blood Urea Nitrogen 15 mg/dL (7-17); Calcium 8.6 mg/dL (8.4-10.2); Carbon Dioxide 26 mmol/L (22-30); Chloride 113 mmol/L (98-107); Glucose 108 mg/dL (74-99); Non-African American GFR(CKD) 80 (>60 ml/min/1.73 sqM); Potassium 3.6 mmol/L (3.5-5.1); Sodium 140 mmol/L (137-145)
[2024-01-05] MEDS: TAMOXIFEN 10 MG TAB PO SCH (08:41)
--- NOTE | 2024-01-05 11:10 | XR ---
EXAMINATION TYPE: XR chest 1V portable DATE OF EXAM: 01/05/2024 11:04 AM COMPARISON: Chest radiographs from 07/02/2023, CT chest abdomen and pelvis 01/04/2024 TECHNIQUE: XR chest 1V portable Portable AP radiograph of the chest. CLINICAL INDICATION:Female, 68 years old with history of chf; FINDINGS: Lungs/Pleura: There is no evidence of pleural effusion, focal consolidation, or pneumothorax. Linear lingular scarring. Pulmonary vascularity: Unremarkable. Heart/mediastinum: Cardiomediastinal silhouette is enlarged and stable. Musculoskeletal: No acute osseous pathology. Other findings: None Lines/Tubes: [id number] projecting over the right hemithorax with distal tip projecting over the superior vena cava. IMPRESSION: No acute cardiopulmonary disease/process. [facility], , 01/05/2024 11:07 AM
--- NOTE | 2024-01-05 12:00 | CA ---
Transthoracic Echo Report Name: Dilma Payne Age: 68 Gender: F : 1955 Exam Date: 01/05/2024 10:12 Exam Location: [facility] Ht (in): 67.5 Wt (lb): 195 Ordering Physician: Buddy Crespo MD Attending/Referring Phys: Credit Assistant Adilene Hernandez RDCS Procedure CPT: Indications: Shortness of breath, pe Cardiac Hx: Technical Quality: Fair Contrast 1: Total Dose (mL): Contrast 2: Total Dose (mL): MEASUREMENTS (Male / Female) Normal Values 2D ECHO LV Diastolic Diameter PLAX 3.9 cm 4.2 - 5.9 / 3.9 - 5.3 cm LV Systolic Diameter PLAX 2.5 cm IVS Diastolic Thickness 1.3 cm 0.6 - 1.0 / 0.6 - 0.9 cm LVPW Diastolic Thickness 1.3 cm 0.6 - 1.0 / 0.6 - 0.9 cm LV Relative Wall Thickness 0.7 RV Internal Dim ED PLAX 3.2 cm LVOT Diameter 2.3 cm LA Systolic Diameter LX 3.1 cm 3.0 - 4.0 / 2.7 - 3.8 cm LV Diastolic Volume MOD 4C 107.8 cm??? LV Systolic Volume MOD 4C 49.0 cm??? LV Ejection Fraction MOD 4C 54.5 % LV Cardiac Index MOD 4C 2178.7 cm???/min???m??? LV Diastolic Length 4C 8.3 cm LV Systolic Length 4C 6.8 cm LV Diastolic Volume MOD 2C 110.6 cm??? LV Systolic Volume MOD 2C 54.9 cm??? LV Ejection Fraction MOD 2C 50.4 % LV Cardiac Index MOD 2C 2063.5 cm???/min???m??? LV Diastolic Length 2C 8.1 cm LV Systolic Length 2C 6.7 cm M-MODE Aortic Root Diameter MM 3.1 cm LA Systolic Diameter MM 1.8 cm LA Ao Ratio MM 0.6 DOPPLER AV Peak Velocity 148.2 cm/s AV Peak Gradient 8.8 mmHg Mitral E Point Velocity 75.5 cm/s Mitral A Point Velocity 96.4 cm/s Mitral E to A Ratio 0.8 MV Deceleration Time 254.1 ms MV E' Velocity 5.3 cm/s Mitral E to MV E' Ratio 14.2 TR Peak Velocity 257.8 cm/s TR Peak Gradient 26.6 mmHg Right Ventricular Systolic Press 36.6 mmHg FINDINGS Left Ventricle Left ventricular ejection fraction is estimated at 55 %. Left ventricular cavity size normal. Mildly increased septal wall thickness. Mildly increased posterior wall thickness. Normal left ventricular wall motion. Right Ventricle Normal right ventricular size and function. Mild pulmonary hypertension. Right Atrium Normal right atrial size. No right atrial thrombus or mass seen. Left Atrium Normal left atrial size. Left atrial size at the upper limits of normal. Mitral Valve Structurally normal mitral valve. Trace to mild mitral regurgitation. Aortic Valve Trileaflet aortic valve. No aortic valve stenosis or regurgitation. Tricuspid Valve Structurally normal tricuspid valve. Pulmonic Valve Pulmonic valve not well visualized. No pulmonic regurgitation. Pericardium No pericardial or pleural effusion. Aorta Normal size aortic root and proximal ascending aorta. CONCLUSIONS LVEF 55% No obvious regional wall motion abnormality Mild concentric LVH No significant valvular dysfunction Normal RV size and systolic function. RVSP estimated at 37 mmHg Previewed by: Dr Chandrakant Santillan (Electronically Signed) Final Date: 05 January 2024 11:59
--- NOTE | 2024-01-05 12:26 | P.CNPUL ---
History of Present Illness Consult date: 01/05/24 Requesting physician: Treva Buchanan Reason for consult: dyspnea, chest pain, hypoxemia, pulmonary embolism, abnormal CXR/CT Chief complaint: Shortness of breath/chest pain. History of present illness: Pulmonary consult dated January 05, 2024. 68-year-old female who presents to the emergency department, on January 03. She came in for shortness of breath, and chest pain. She apparently was sent for routine CT scan by her medical oncologist, and apparently the CT scan showed evidence of pulmonary embolism. The patient was having some shortness of breath, chest pain, for about 4 days prior. The patient has a history of breast cancer, that has been treated, and is thought to be in remission. 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 She continues to follow with a medical oncologist for that malignancy. The patient is currently seen today in room 371. She is on IV heparin. She is on room air. Saturations are 96%. She appears relatively comfortable, and she is in a very good mood. Local history includes hypertension. Current laboratory data includes a white count 6.7, hemoglobin 10.3, hematocrit 32, platelet count of 280,000. PTT is 84.1. Sodium 140, potassium 3.6, chlorides 113, CO2 26, BUN 15, creatinine 0.77. Glucose is 108. N-terminal proBNP is 1590. Chest x-ray is within normal range. The CAT scan that was done on January 03 shows right sided upper and middle lobe segmental pulmonary emboli, without overt evidence for right heart strain. There is also bilateral lower lobe atelectatic changes. Review of Systems REVIEW OF SYSTEMS: CONSTITUTIONAL: [Negative.] NEUROLOGIC: [ Negative.] HEENT: [ Negative.] CARDIAC: Chest pain. PULMONARY: Shortness of breath. GI: [Negative.] : [Negative.] RHEUMATOLOGIC: [ Negative.] IMMUNOLOGIC: [ Negative.] ENDOCRINE: [Negative. ] DERMATOLOGIC: [Negative.] Past Medical History Past Medical History: Cancer Additional Past Medical History / Comment(s): LT BREAST CANCER, colon cancer stage II-METS TO OVARIES-with chemo. last chemo june 2020. METS to both lungs History of Any Multi-Drug Resistant Organisms: None Reported Past Surgical History: Bowel Resection, Breast Surgery, Cholecystectomy, Hysterectomy Additional Past Surgical History / Comment(s): LT BREAST LUMPECTOMY-RADIATION, COLONOSCOPY, HAS PORT A CATH, Urethral stent-replaced every 3 months Past Anesthesia/Blood Transfusion Reactions: No Reported Reaction Additional Past Anesthesia/Blood Transfusion Reaction / Comment(s): No problems with previous blood transfusion. Past Psychological History: No Psychological Hx Reported Smoking Status: Former smoker Past Alcohol Use History: Occasional Additional Past Alcohol Use History / Comment(s): STARTED SMOKING AT AGE 20 quit December 2017. Past Drug Use History: None Reported - Past Family History Mother Family Medical History: COPD, Dementia Father Family Medical History: AFIB, Cancer Additional Family Medical History / Comment(s): Lung cancer. Sister(s) Family Medical History: Cancer Additional Family Medical History / Comment(s): VOCAL CORD CANCER Medications and Allergies Home Medications Medication Instructions Recorded Confirmed Type Multivitamins, Thera [Multivitamin 1 tab PO DAILY 07/10/17 01/04/24 History (formulary)] Tamoxifen Citrate 20 mg PO DAILY 12/16/17 01/04/24 History Cholecalciferol [Vitamin D3 (25 50 mcg PO DAILY 05/02/20 01/04/24 History Mcg = 1000 Iu)] Cyanocobalamin [Vitamin B-12] 500 mcg PO DAILY 05/02/20 01/04/24 History Ascorbic Acid [Vitamin C] 1,000 mg PO DAILY 06/05/22 01/04/24 History Cetuximab [Erbitux] 1 dose IV TU 09/04/22 01/04/24 History Prochlorperazine Maleate 10 mg PO Q6H PRN 09/04/22 01/04/24 History Valsartan 320 mg PO DAILY 09/04/22 01/04/24 History DULoxetine HCL [Cymbalta] 60 mg PO BID 09/05/23 01/04/24 History Encorafenib [Braftovi] 300 mg PO HS 09/05/23 01/04/24 History Metoprolol Succinate (ER) [Toprol 100 mg PO DAILY #30 tab 09/10/23 01/04/24 Rx XL] Magnesium Oxide [Magnesium] 500 mg PO HS 12/04/23 01/04/24 History Scopolamine 1 mg/72 Hr Patch 1 patch TRANSDERM Q72H PRN 12/04/23 01/04/24 History [TransDerm Scop] Metoprolol Succinate (ER) [Toprol 50 mg PO DAILY 01/04/24 01/04/24 History Xl] Allergies Allergy/AdvReac Type Severity Reaction Status Date / Time No Known Allergies Allergy Verified 01/04/24 16:08 Physical Exam Osteopathic Statement: *. No significant issues noted on an osteopathic structural exam other than those noted in the History and Physical/Consult. Vitals: Vital Signs Temp Pulse Pulse Resp BP BP Pulse Ox 01/05/24 11:27 81 16 144/78 96 01/05/24 08:00 97.5 F L 94 18 138/66 96 01/05/24 04:25 98.1 F 90 18 143/80 98 01/04/24 23:10 89 14 141/89 97 01/04/24 20:05 97.9 F 82 20 139/94 96 01/04/24 18:38 20 01/04/24 18:07 97.9 F 94 18 157/90 94 L 01/04/24 17:55 87 20 154/84 96 01/04/24 16:33 86 18 137/86 98 01/04/24 14:07 98.3 F 88 16 126/80 94 L Intake and Output 01/04/24 01/05/24 01/05/24 22:59 06:59 14:59 Intake Total 225.400 563.115 Balance 225.400 563.115 Intake: Intake, IV Titration 225.400 23.115 Amount Heparin Sod,Pork in 0.45% 225.400 23.115 NaCl 25,000 unit In 0.45 % NaCl 1 250ml.bag @ 18 UNITS/KG/HR 15.921 mls/hr IV .[id number] [facility] Rx#: [id number] Oral 540 Other: Voiding Method Toilet Toilet Toilet # Voids 1 1 2 Weight 88.451 kg 88.6 kg No acute distress, oriented 3. Currently on room air. No respiratory distress. HEENT examination is grossly unremarkable. Mucous membranes are moist. No oral lesions. Neck supple. Full range of motion. No adenopathy thyromegaly or neck vein distention. Cardiovascular examination reveals regular rhythm rate. S1-S2 normal. No S3 or S4. No discernible murmur noted. Lungs reveal clear breath sounds. Breath sounds are equal bilaterally. No adventitious lung sounds including wheezes rhonchi or crackles. Abdomen soft bowel sounds are heard. No masses or tenderness. Extremities are intact. No cyanosis clubbing or edema. Skin is without rash or lesion. Neurologic examination is brief but nonfocal. Results - Laboratory Findings CBC and BMP: 01/05/24 06:10 01/05/24 06:10 PT/INR, D-dimer PT 10.0 sec (10.0-12.5) 01/04/24 14:58 INR 0.9 (<1.2) 01/04/24 14:58 Abnormal lab findings: Abnormal Labs 01/04/24 01/04/24 01/04/24 14:58 14:58 14:58 RBC 3.76 L Hgb 11.3 L Hct APTT 20.0 L Chloride BUN 21 H Creatinine 1.07 H Glucose 01/04/24 01/05/24 01/05/24 21:32 06:10 06:10 RBC 3.37 L Hgb 10.3 L Hct 32.0 L APTT 71.9 H Chloride 113 H BUN Creatinine Glucose 108 H 01/05/24 06:10 RBC Hgb Hct APTT 84.1 H Chloride BUN Creatinine Glucose - Diagnostic Findings Chest x-ray: image reviewed CT scan - chest: image reviewed Assessment and Plan Assessment: Acute pulmonary embolism, right lung. History of colon cancer, metastatic to the ovaries, and lung. S/P colon resection. History of breast cancer, thought to be in remission. History of hypertension. Plan: Plan dated January 05, 2024. The patient was admitted with a diagnosis of pulmonary embolism, involving the right lung. He developed primarily right upper lobe and right middle lobe. The patient did not have right heart strain. The patient is currently on IV heparin. The patient can be transition to a factor Xa inhibitor. Given her malignancy history, the patient should likely be on blood thinner for the rest of her life. Clinically, her respiratory status is stable. No additional recommendations are made. Time with Patient: Greater than 30
--- NOTE | 2024-01-05 13:23 | US ---
EXAMINATION TYPE: US venous doppler duplex LE BI DATE OF EXAM: 01/05/2024 1:17 PM Exam done portable COMPARISON: US 2021 CLINICAL INDICATION: Female, 68 years old with history of Recent diagnosis of PE, baseline; , TECHNIQUE: The lower extremity deep venous system is examined utilizing real time linear array sonog mariam with graded compression, color doppler sonography, and spectral doppler. SIDE PERFORMED: Bilateral FINDINGS: VESSELS IMAGED: Common Femoral Vein Deep Femoral Vein Greater Saphenous Vein * Femoral Vein Popliteal Vein Small Saphenous Vein * Proximal Calf Veins (* superficial vessels) Right Leg: Appears negative for DVT Left Leg: Appears negative for DVT IMPRESSION: No ultrasound evidence for deep venous thrombosis. [facility], , 01/05/2024 1:21 PM
--- NOTE | 2024-01-05 15:18 | P.CONS ---
History of Present Illness - Reason for Consult Consult date: 01/05/24 PE Requesting physician: Eze Fuentes - Chief Complaint Incidental finding of PE on scan, pt having symptoms - History of Present Illness Mrs. Payne is a noel pleasant 68 year old female pt of Dr. Jmaes, well know to the service with a history of breast cancer (2017) treated with radiation and subsequent AI-which she continues on. She had an elective colonoscopy 12/18/17, r evealing a partially obstructing lesion in the mid ascending colons, beyond which the scope could not be passed. The pathology was positive for adenocarcinoma. She had a right hemicolectomy on 01/06/18 , revealing a 4 cm , grade II, T3 tumor with 0/23 nodes positive. [facility]. 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 CT in 08/05 showed a new 5.2 cm ovarian mass on the left. The patient was referred to [facility] [employer] oncology, Dr. Barakat at [facility]. She underwent resection with bilateral salpingo-oophorectomy and total abdominal hysterectomy laparoscopically on 09/01/19. Final pathology revealed the left ovarian mass to be consistent with colon primary. PET 10/05 was negative for any residual uptake. She was PD-1 < 1%. She was started on FOLFOX. Additional biomarker testing revealed MSI stable, KRAS wild type and BRAF V600E positive. She was seen at [facility], and it was recommended to change her regimen to FOLFOXIRI + jack. Completed 11 cycles, and C12 was given only with irinotecan plus bevacizumab due to intolerance. She had a bronch and biopsy on 07/03/22, showing metastatic colorectal ca. Sent to Radiation oncology for SBRT. She started on 08/05/22, and completed treatments on 08/15/22. She was then re commended to start Encorafenib and cetuximab. She started the same on 09/01/22. She was also referred to [facility], and felt to be a candidate for clinical trial. However the patient decided against the trial because of the logistical issues. Her CT scans in 05/09 had shown possible abnormality in sigmoid colon. The patient was therefore referred back to GI and had colonoscopy on 05/27/23. This revealed a 2 small, smooth nodules in the sigmoid colon, with biopsy showing benign hyperplasia. She has continued on Encorafenib and cetuximab, and completed cycle 13 on 09/01/23. CT of the chest abdomen and pelvis on 07/03/23 did not show any evidence of recurrence. There was mention of a minimal pleural effusion on the left side, but this is nonspecific. She cont on the same, daily oral and weekly IV, doing well. She does have a history of left ureteral stent placed for extrinsic compression causing hydronephrosis. Treatment follow-up CT scan yesterday, no evidence to suggest disease progression, no new lesions, stable soft tissue nodule in the left back. Patient was incidentally found to have a right upper and middle lobe segmental pulmonary emboli without evidence for right heart strain. The critical was called to Dr. Varela. Plans were to start patient on anticoagulation outpatient but, she was reporting symptoms of shortness of breath as well as some tightness across the chest. It was therefore felt she would be better treated inpatient with 48 hours of heparin and to ensure her symptoms improved. When seen today patient does report easing of the tightness across her chest with deep inspiration. No progressive shortness of breath, she denies any bleeding since being on the heparin drip Review of Systems 10 point review of systems is negative except as stated in HPI Past Medical History Past Medical History: Cancer Additional Past Medical History / Comment(s): LT BREAST CANCER, colon cancer stage II-METS TO OVARIES-with chemo. last chemo june 2020. METS to both lungs History of Any Multi-Drug Resistant Organisms: None Reported Past Surgical History: Bowel Resection, Breast Surgery, Cholecystectomy, Hysterectomy Additional Past Surgical History / Comment(s): LT BREAST LUMPECTOMY-RADIATION, COLONOSCOPY, HAS PORT A CATH, Urethral stent-replaced every 3 months Past Anesthesia/Blood Transfusion Reactions: No Reported Reaction Additional Past Anesthesia/Blood Transfusion Reaction / Comm: No problems with previous blood transfusion. Past Psychological History: No Psychological Hx Reported Smoking Status: Former smoker Past Alcohol Use History: Occasional Additional Past Alcohol Use History / Comment(s): STARTED SMOKING AT AGE 20 quit December 2017. Past Drug Use History: None Reported - Past Family History Mother Family Medical History: COPD, Dementia Father Family Medical History: AFIB, Cancer Additional Family Medical History / Comment(s): Lung cancer. Sister(s) Family Medical History: Cancer Additional Family Medical History / Comment(s): VOCAL CORD CANCER Medications and Allergies Home Medications Medication Instructions Recorded Confirmed Type Multivitamins, Thera [Multivitamin 1 tab PO DAILY 07/10/17 01/04/24 History (formulary)] Tamoxifen Citrate 20 mg PO DAILY 12/16/17 01/04/24 History Cholecalciferol [Vitamin D3 (25 50 mcg PO DAILY 05/02/20 01/04/24 History Mcg = 1000 Iu)] Cyanocobalamin [Vitamin B-12] 500 mcg PO DAILY 05/02/20 01/04/24 History Ascorbic Acid [Vitamin C] 1,000 mg PO DAILY 06/05/22 01/04/24 History Cetuximab [Erbitux] 1 dose IV TU 09/04/22 01/04/24 History Prochlorperazine Maleate 10 mg PO Q6H PRN 09/04/22 01/04/24 History Valsartan 320 mg PO DAILY 09/04/22 01/04/24 History DULoxetine HCL [Cymbalta] 60 mg PO BID 09/05/23 01/04/24 History Encorafenib [Braftovi] 300 mg PO HS 09/05/23 01/04/24 History Metoprolol Succinate (ER) [Toprol 100 mg PO DAILY #30 tab 09/10/23 01/04/24 Rx XL] Magnesium Oxide [Magnesium] 500 mg PO HS 12/04/23 01/04/24 History Scopolamine 1 mg/72 Hr Patch 1 patch TRANSDERM Q72H PRN 12/04/23 01/04/24 History [TransDerm Scop] Metoprolol Succinate (ER) [Toprol 50 mg PO DAILY 01/04/24 01/04/24 History Xl] Allergies Allergy/AdvReac Type Severity Reaction Status Date / Time No Known Allergies Allergy Verified 01/04/24 16:08 Physical Exam Vitals: Vital Signs Temp Pulse Pulse Resp BP BP Pulse Ox 01/05/24 08:00 97.5 F L 94 18 138/66 96 01/05/24 04:25 98.1 F 90 18 143/80 98 01/04/24 23:10 89 14 141/89 97 01/04/24 20:05 97.9 F 82 20 139/94 96 01/04/24 18:38 20 01/04/24 18:07 97.9 F 94 18 157/90 94 L 01/04/24 17:55 87 20 154/84 96 01/04/24 16:33 86 18 137/86 98 01/04/24 14:07 98.3 F 88 16 126/80 94 L Intake and Output 01/04/24 01/05/24 01/05/24 22:59 06:59 14:59 Intake Total 225.400 23.115 Balance 225.400 23.115 Intake: Intake, IV Titration 225.400 23.115 Amount Heparin Sod,Pork in 0.45% 225.400 23.115 NaCl 25,000 unit In 0.45 % NaCl 1 250ml.bag @ 18 UNITS/KG/HR 15.921 mls/hr IV .[id number] [facility] Rx#: [id number] Other: Voiding Method Toilet Toilet Toilet # Voids 1 1 Weight 88.451 kg 88.6 kg - Constitutional General appearance: average body habitus, cooperative, no acute distress - EENT Eyes: anicteric sclerae, EOMI ENT: hearing grossly normal, normal oropharynx - Respiratory Respiratory: bilateral: CTA - Cardiovascular Rhythm: regular Heart sounds: normal: S1, S2 Abnormal Heart Sounds: no systolic murmur, no diastolic murmur, no rub, no S3 Gallop, no S4 Gallop, no click, no other leg Peripheral Edema: bilateral: None - Gastrointestinal General gastrointestinal: normal bowel sounds, soft - Integumentary Integumentary: normal - Neurologic Neurologic: CNII-XII intact - Musculoskeletal Musculoskeletal: strength equal bilaterally - Psychiatric Psychiatric: A&O x's 3, appropriate affect, intact judgment & insight Results CBC & Chem 7: 01/05/24 06:10 01/05/24 06:10 Labs: Abnormal Lab Results - Last 24 Hours (Table) 01/04/24 01/04/24 01/04/24 Range/Units 14:58 14:58 14:58 RBC 3.76 L (3.80-5.40) m/uL Hgb 11.3 L (11.4-16.0) gm/dL Hct (34.0-46.0) % APTT 20.0 L (22.0-30.0) sec Chloride (98-107) mmol/L BUN 21 H (7-17) mg/dL Creatinine 1.07 H (0.52-1.04) mg/dL Glucose (74-99) mg/dL 01/04/24 01/05/24 01/05/24 Range/Units 21:32 06:10 06:10 RBC 3.37 L (3.80-5.40) m/uL Hgb 10.3 L (11.4-16.0) gm/dL Hct 32.0 L (34.0-46.0) % APTT 71.9 H (22.0-30.0) sec Chloride 113 H (98-107) mmol/L BUN (7-17) mg/dL Creatinine (0.52-1.04) mg/dL Glucose 108 H (74-99) mg/dL 01/05/24 Range/Units 06:10 RBC (3.80-5.40) m/uL Hgb (11.4-16.0) gm/dL Hct (34.0-46.0) % APTT 84.1 H (22.0-30.0) sec Chloride (98-107) mmol/L BUN (7-17) mg/dL Creatinine (0.52-1.04) mg/dL Glucose (74-99) mg/dL Comments: Echo report reviewed Chest x-ray: report reviewed CT scan - abdomen: report reviewed CT scan - chest: report reviewed CT scan - pelvis: report reviewed Assessment and Plan (1) Pulmonary embolism Current Visit: Yes Status: Acute Priority: High Code(s): I26.99 - OTHER PULMONARY EMBOLISM WITHOUT ACUTE COR PULMONALE SNOMED Code(s): 51095339 (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 -Due to patient's symptom of shortness of breath and some chest tightness it was felt that she should be sent to the hospital and placed on heparin drip and to m onitor symptoms versus treating outpatient. -Patient reporting some improvement in the chest tightness on deep inspiration since admit. -Patient is denying any bleeding since starting heparin drip -Bilateral lower extremity Doppler for baseline -Eliquis Rx will be sent, consult case management for co-pay verification -Case was discussed with Internal Medicine. -Ok for DC from Hem/Onc standpoint once eliquis Rx in place, pt reporting stable improved SOB, chest tightness and once cleared by Attending and other consulting MDs Anemia -Anemia is mild, chronic secondary to patient's long history of treatment and current treatment. Counts are continually monitored outpatient. -No transfusion needed at this time History of colon cancer -Diagnosis and treatment as stated in consult -Patient continues on Braftovi and Erbitux, tolerating well. -Most recent imaging reporting stable disease, no new lesions. Breast cancer -Patient has been on AI since 2018. -Will see if treatment needs to be adjusted now that pt has had a VTE.
[2024-01-06 06:53] LABS: Basophils # (A) 0.1 k/uL (0-0.2); Basophils % (A) 1 %; Eosinophils # (A) 0.2 k/uL (0-0.7); Eosinophils % (A) 4 %; HCT 32.2 % (34.0-46.0); HGB 10.5 gm/dL (11.4-16.0); Hypochromasia Slight; Lymphocytes # (A) 1.7 k/uL (1.0-4.8); Lymphocytes % (A) 28 %; MCH 30.7 pg (25.0-35.0); MCHC 32.5 g/dL (31.0-37.0); MCV 94.5 fL (80.0-100.0); Mean Platelet Volume 7.7; Monocytes # (A) 0.5 k/uL (0-1.0); Monocytes % (A) 8 %; Neutrophils # (A) 3.4 k/uL (1.3-7.7); Neutrophils % (A) 57 %; Platelet Count 253 k/uL (150-450); RBC 3.41 m/uL (3.80-5.40); RDW 15.1 % (11.5-15.5)
--- NOTE | 2024-01-06 07:07 | PN ---
PROGRESS NOTE DATE OF SERVICE: 01/05/2024 SUBJECTIVE: This is a 68-year-old woman, who was admitted with pulmonary embolism, still complaining of shortness of breath and weakness. No chest pain. No palpitation. Chest x-ray showed no acute abnormality and 2D echo with Doppler showed normal RV systolic dysfunction. No chest pain. No palpitation. OBJECTIVE: VITAL SIGNS: Pulse is 81, blood pressure 140/70, respirations 16. CHEST: A few scattered rhonchi and crackles. ABDOMEN: Soft, nontender. NERVOUS SYSTEM: Nonfocal. LABORATORY DATA: Noted. ASSESSMENT: 1. Shortness of breath with possible acute pulmonary embolism in the right upper and middle lobe segments. 2. Metastatic colon cancer. 3. History of left breast cancer. 4. Hypertension. 5. Multiple complex medical issues. RECOMMENDATIONS AND DISCUSSION: Recommend to continue current medications with anticoagulation. Closely follow with Hematology, Oncology and as well as Pulmonary. Increase ambulation. Guarded prognosis. Further recommendations to follow. MMODL / IJN: [id number] /
[2024-01-06 08:39] LABS: African American GFR (CKD) 90 (>60 ml/min/1.73 sqM); Anion Gap 7 mmol/L; Blood Urea Nitrogen 15 mg/dL (7-17); Calcium 8.8 mg/dL (8.4-10.2); Carbon Dioxide 22 mmol/L (22-30); Chloride 110 mmol/L (98-107); Glucose 104 mg/dL (74-99); Non-African American GFR(CKD) 78 (>60 ml/min/1.73 sqM); Potassium 3.8 mmol/L (3.5-5.1); Sodium 139 mmol/L (137-145)
--- NOTE | 2024-01-06 12:21 | P.PN ---
Subjective Progress Note Date: 01/06/24 Principal diagnosis: Pulmonary embolism. Pulmonary consult dated January 05, 2024. 68-year-old female who presents to the emergency department, on January 03. She came in for shortness of breath, and chest pain. She apparently was sent for routine CT scan by her medical oncologist, and apparently the CT scan showed evidence of pulmonary embolism. The patient was having some shortness of breath, chest pain, for about 4 days prior. The patient has a history of breast cancer, that has been treated, and is thought to be in remission. 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 She continues to follow with a medical oncologist for that malignancy. The patient is currently seen today in room 371. She is on IV heparin. She is on room air. Saturations are 96%. She appears relatively comfortable, and she is in a very good mood. Local history includes hypertension. Current laboratory data includes a white count 6.7, hemoglobin 10.3, hematocrit 32, platelet count of 280,000. PTT is 84.1. Sodium 140, potassium 3.6, chlorides 113, CO2 26, BUN 15, creatinine 0.77. Glucose is 108. N-terminal proBNP is 1590. Chest x-ray is within normal range. The CAT scan that was done on January 03 shows right sided upper and middle lobe segmental pulmonary emboli, without overt evidence for right heart strain. There is also bilateral lower lobe atelectatic changes. Progress note dated January 06, 2024. The patient is seen today in room 371. She is a 68-year-old female with a history of multiple cancers including breast cancer, and colon cancer which is metastatic. The patient came into the hospital with shortness of breath and chest pain. She was discovered to have a pulmonary embolism. Currently she is on room air. She is on IV heparin. The patient can be transitioned to a factor Xa inhibitor. Clinically she is very stable. White count of 6, hemoglobin 10.5, hematocrit 32.2, platelet count 253,000. Sodium 139, potassium 3.8, chlorides 110, CO2 22, BUN 15, creatinine 0.79. Glucose is 104. Bilateral lower extremity Dopplers are negative for DVT. Objective - Vital Signs Vital signs: Vital Signs Temp 97.9 F 01/06/24 08:00 Pulse 78 01/06/24 11:32 Resp 16 01/06/24 11:32 BP 156/81 01/06/24 11:32 Pulse Ox 96 01/06/24 11:32 FiO2 Intake & Output 01/05/24 01/06/24 01/06/24 18:59 06:59 18:59 Intake Total 563.115 181.205 240 Balance 563.115 181.205 240 Weight 89.2 kg Intake: Intake, IV Titration 23.115 181.205 Amount Heparin Sod,Pork in 0.45% 23.115 181.205 NaCl 25,000 unit In 0.45 % NaCl 1 250ml.bag @ 18 UNITS/KG/HR 15.921 mls/hr IV .[id number] [facility] Rx#: [id number] Oral 540 240 Other: Voiding Method Toilet Toilet Toilet # Voids 1 2 1 - Exam No acute distress, oriented 3. Currently on room air. No respiratory distress. HEENT examination is grossly unremarkable. Mucous membranes are moist. No oral lesions. Neck supple. Full range of motion. No adenopathy thyromegaly or neck vein distention. Cardiovascular examination reveals regular rhythm rate. S1-S2 normal. No S3 or S4. No discernible murmur noted. Lungs reveal clear breath sounds. Breath sounds are equal bilaterally. No adventitious lung sounds including wheezes rhonchi or crackles. Abdomen soft bowel sounds are heard. No masses or tenderness. Extremities are intact. No cyanosis clubbing or edema. Skin is without rash or lesion. Neurologic examination is brief but nonfocal. - Labs CBC & Chem 7: 01/06/24 06:31 01/06/24 06:31 Labs: Abnormal Lab Results - Last 24 Hours (Table) 01/05/24 01/05/24 01/06/24 Range/Units 13:12 19:51 06:31 RBC 3.41 L (3.80-5.40) m/uL Hgb 10.5 L (11.4-16.0) gm/dL Hct 32.2 L (34.0-46.0) % APTT 65.3 H 61.3 H (22.0-30.0) sec Chloride (98-107) mmol/L Glucose (74-99) mg/dL 01/06/24 01/06/24 Range/Units 06:31 06:31 RBC (3.80-5.40) m/uL Hgb (11.4-16.0) gm/dL Hct (34.0-46.0) % APTT 59.3 H (22.0-30.0) sec Chloride 110 H (98-107) mmol/L Glucose 104 H (74-99) mg/dL Assessment and Plan Assessment: Acute pulmonary embolism, right lung. No evidence of lower extremity DVT. History of colon cancer, metastatic to the ovaries, and lung. S/P colon resection. History of breast cancer, thought to be in remission. History of hypertension. Plan: Plan dated January 05, 2024. The patient was admitted with a diagnosis of pulmonary embolism, involving the right lung. He developed primarily right upper lobe and right middle lobe. The patient did not have right heart strain. The patient is currently on IV heparin. The patient can be transition to a factor Xa inhibitor. Given her mal ignancy history, the patient should likely be on blood thinner for the rest of her life. Clinically, her respiratory status is stable. No additional recommendations are made. Plan dated January 06, 2024. This patient does not need to be in the hospital. She can be discharged on a factor Xa inhibitor. She should have anticoagulation for the rest of her life. She is clinically very stable. She is on room air. Labs, x-rays, and medications are reviewed. Time with Patient: Less than 30
[2024-01-06 12:47] LABS: Appearance,Urine Cloudy (Clear); Bacteria,Urine Many /hpf; Bilirubin,Urine Negative (Negative); Blood,Urine Moderate (Negative); Color,Urine Yellow; Glucose,Urine (UA) Negative (Negative); Ketones,Urine Negative (Negative); Leukocyte Esterase,Urine Large (Negative); Mucus,Urine Rare /hpf; Nitrite,Urine Positive (Negative); Protein,Urine 1+ (Negative); RBC,Urine >182 /hpf (0-5); Specific Gravity,Urine 1.016 (1.001-1.035); Squamous Epithelial Cell,Urine 2 /hpf (0-4); Urobilinogen,Urine <2.0 mg/dL (<2.0); WBC,Urine >182 /hpf (0-5)
[2024-01-06] MEDS: CEFEPIME 2 GM in SODIUM CHLORIDE 0.9% 100 ML IVPB SCH (15:58)
--- NOTE | 2024-01-06 20:30 | P.PN ---
Subjective Progress Note Date: 01/06/24 Principal diagnosis: PE In f/u today pt is reporting that she can ambulate and take deep breath with only slight discomfort in the chest. Denies any bleeding on heparindrip. She is reporting some pain in the left flank/back area. She was seen by Dr. Dunlap earlier this week and had a urine specimen taken-she has had resistant UTI's since ureteral stent placement. No fevers to report, N,V. Objective - Vital Signs Vital signs: Vital Signs Temp 97.7 F 01/06/24 15:50 Pulse 85 01/06/24 15:50 Resp 16 01/06/24 15:50 BP 152/88 01/06/24 15:50 Pulse Ox 97 01/06/24 15:50 FiO2 Intake & Output 01/06/24 01/06/24 01/07/24 06:59 18:59 06:59 Intake Total 181.205 780 Balance 181.205 780 Weight 89.2 kg Intake: Intake, IV Titration 181.205 Amount Heparin Sod,Pork in 0.45% 181.205 NaCl 25,000 unit In 0.45 % NaCl 1 250ml.bag @ 18 UNITS/KG/HR 15.921 mls/hr IV .[id number] [facility] Rx#: [id number] Oral 780 Other: Voiding Method Toilet Toilet # Voids 2 2 - Constitutional General appearance: Present: average body habitus, cooperative, no acute distr ess - EENT Eyes: Present: anicteric sclerae, EOMI ENT: Present: hearing grossly normal - Respiratory Respiratory: bilateral: CTA - Cardiovascular Rhythm: regular Heart sounds: normal: S1, S2 Abnormal Heart Sounds: Absent: systolic murmur, diastolic murmur, rub, S3 Gallop, S4 Gallop, click, other - Peripheral edema leg Peripheral Edema: bilateral: None - Gastrointestinal General gastrointestinal: Present: soft - Integumentary Integumentary: Present: normal - Neurologic Neurologic: Present: CNII-XII intact - Musculoskeletal Musculoskeletal: Present: strength equal bilaterally - Psychiatric Psychiatric: Present: A&O x's 3, appropriate affect, intact judgment & insight - Labs CBC & Chem 7: 01/06/24 06:31 01/06/24 06:31 Labs: Abnormal Lab Results - Last 24 Hours (Table) 11/01/06/24 01/06/24 Range/Units 06:31 06:31 06:31 RBC 3.41 L (3.80-5.40) m/uL Hgb 10.5 L (11.4-16.0) gm/dL Hct 32.2 L (34.0-46.0) % APTT 59.3 H (22.0-30.0) sec Chloride 110 H (98-107) mmol/L Glucose 104 H (74-99) mg/dL Urine Appearance (Clear) Urine Protein (Negative) Urine Blood (Negative) Urine Nitrite (Negative) Ur Leukocyte Esterase (Negative) Urine RBC (0-5) /hpf Urine WBC (0-5) /hpf Urine WBC Clumps (None) /hpf Urine Bacteria (None) /hpf Urine Mucus (None) /hpf 01/06/24 Range/Units 12:30 RBC (3.80-5.40) m/uL Hgb (11.4-16.0) gm/dL Hct (34.0-46.0) % APTT (22.0-30.0) sec Chloride (98-107) mmol/L Glucose (74-99) mg/dL Urine Appearance Cloudy H (Clear) Urine Protein 1+ H (Negative) Urine Blood Moderate H (Negative) Urine Nitrite Positive H (Negative) Ur Leukocyte Esterase Large H (Negative) Urine RBC >182 H (0-5) /hpf Urine WBC >182 H (0-5) /hpf Urine WBC Clumps Few H (None) /hpf Urine Bacteria Many H (None) /hpf Urine Mucus Rare H (None) /hpf - Imaging and Cardiology Venous US: report reviewed (BLE doppler neg for DVT) Assessment and Plan (1) Pulmonary embolism Current Visit: Yes Status: Acute Priority: High Code(s): I26.99 - OTHER PULMONARY EMBOLISM WITHOUT ACUTE COR PULMONALE SNOMED Code(s): 79066830 (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 -Due to patient's symptom of shortness of breath and some chest tightness it was felt that she should be sent to the hospital and placed on heparin drip and to monitor symptoms versus treating outpatient. -Patient reporting continued improvement in the chest tightness on deep inspiration since admit. She is ambulating without significant discomfort -No bleeding reported on heparin drip -Bilateral lower extremity Doppler neg for DVT -Eliquis Rx will be sent, consult case management for co-pay verification -Ok for DC from Hem/Onc standpoint once eliquis Rx in place, pt reporting stable improved SOB, chest tightness and once cleared by Attending and other consulting MDs Anemia -Anemia is mild, chronic secondary to patient's long history of treatment and current treatment. Counts are continually monitored outpatient. -No transfusion needed at this time History of colon cancer -Diagnosis and treatment as stated in consult -Patient continues on Braftovi and Erbitux, tolerating well. -Most recent imaging reporting stable disease, no new lesions. Breast cancer -Patient has been on AI since 2018. -Will see if treatment needs to be adjusted now that pt has had a VTE. Cont for now Discussed recent urine collection with Attending HOME SPECIALIST, results reviewed. Pt has had recurrent UTIs with resistant microorganisms. ID consult to treat. Pt may need to hold Braftovi while being treated.
--- NOTE | 2024-01-06 22:04 | P.CONS ---
History of Present Illness - Reason for Consult Consult date: 01/06/24 Complicated UTI Requesting physician: Jackie Kern - Chief Complaint Shortness of breath x few days - History of Present Illness Patient is a 68-year-old female with a past medical history significant for left breast cancer colon cancer stage II history of recurrent UTI presenting to the hospital 2 days ago for evaluation of difficulty in breathing and this patient symptom has been going on for about 4 days before presentation to the hospital patient did have a outpatient CT that was suggestive of PE for the patient was sent to the ER patient has been started on heparin per weight-based protocol patient is also complaining of some urinary burning and frequency and this patient did have history of complicated UTI in the past prompted this consultation on arrival to the ER patient was afebrile and no fever have been recorded subsequently patient was not tachycardic hypotensive or hypoxic no need for supplemental oxygen she did have white count of 6.0 creatinine 0.79 UA has been cloudy with large leukocyte esterase more than 1-2 WBC Review of Systems Positive point and negatives has been mentioned in the HPI, complete review of systems was performed and all other systems are negative Past Medical History Past Medical History: Cancer Additional Past Medical History / Comment(s): LT BREAST CANCER, colon cancer stage II-METS TO OVARIES-with chemo. last chemo june 2020. METS to both lungs History of Any Multi-Drug Resistant Organisms: None Reported Past Surgical History: Bowel Resection, Breast Surgery, Cholecystectomy, Hysterectomy Additional Past Surgical History / Comment(s): LT BREAST LUMPECTOMY-RADIATION, COLONOSCOPY, HAS PORT A CATH, Urethral stent-replaced every 3 months Past Anesthesia/Blood Transfusion Reactions: No Reported Reaction Additional Past Anesthesia/Blood Transfusion Reaction / Comm: No problems with previous blood transfusion. Past Psychological History: No Psychological Hx Reported Smoking Status: Former smoker Past Alcohol Use History: Occasional Additional Past Alcohol Use History / Comment(s): STARTED SMOKING AT AGE 20 quit December 2017. Past Drug Use History: None Reported - Past Family History Mother Family Medical History: COPD, Dementia Father Family Medical History: AFIB, Cancer Additional Family Medical History / Comment(s): Lung cancer. Sister(s) Family Medical History: Cancer Additional Family Medical History / Comment(s): VOCAL CORD CANCER Medications and Allergies Home Medications Medication Instructions Recorded Confirmed Type Multivitamins, Thera [Multivitamin 1 tab PO DAILY 07/10/17 01/04/24 History (formulary)] Tamoxifen Citrate 20 mg PO DAILY 12/16/17 01/04/24 History Cholecalciferol [Vitamin D3 (25 50 mcg PO DAILY 05/02/20 01/04/24 History Mcg = 1000 Iu)] Cyanocobalamin [Vitamin B-12] 500 mcg PO DAILY 05/02/20 01/04/24 History Ascorbic Acid [Vitamin C] 1,000 mg PO DAILY 06/05/22 01/04/24 History Cetuximab [Erbitux] 1 dose IV TU 09/04/22 01/04/24 History Prochlorperazine Maleate 10 mg PO Q6H PRN 09/04/22 01/04/24 History Valsartan 320 mg PO DAILY 09/04/22 01/04/24 History DULoxetine HCL [Cymbalta] 60 mg PO BID 09/05/23 01/04/24 History Encorafenib [Braftovi] 300 mg PO HS 09/05/23 01/04/24 History Metoprolol Succinate (ER) [Toprol 100 mg PO DAILY #30 tab 09/10/23 01/04/24 Rx XL] Magnesium Oxide [Magnesium] 500 mg PO HS 12/04/23 01/04/24 History Scopolamine 1 mg/72 Hr Patch 1 patch TRANSDERM Q72H PRN 12/04/23 01/04/24 History [TransDerm Scop] Metoprolol Succinate (ER) [Toprol 50 mg PO DAILY 01/04/24 01/04/24 History Xl] Apixaban [Eliquis Starter Pack 5 - 10 mg PO DIRECTED 30 Days 01/05/24 Rx (for VTE)] #1 each Allergies Allergy/AdvReac Type Severity Reaction Status Date / Time No Known Allergies Allergy Verified 01/04/24 16:08 Physical Exam Vitals: Vital Signs Temp Pulse Resp BP Pulse Ox 01/06/24 11:32 78 16 156/81 96 01/06/24 08:00 97.9 F 90 18 142/89 97 01/06/24 03:54 83 18 134/78 96 01/05/24 23:05 96 18 144/76 95 01/05/24 19:56 98.2 F 82 17 147/80 97 01/05/24 16:21 98.3 F 84 17 124/71 11/19/24 16:00 97.9 F 83 16 135/78 96 Intake and Output 01/05/24 01/06/24 01/06/24 22:59 06:59 14:59 Intake Total 181.205 240 Balance 181.205 240 Intake: Intake, IV Titration 181.205 Amount Heparin Sod,Pork in 0.45% 181.205 NaCl 25,000 unit In 0.45 % NaCl 1 250ml.bag @ 18 UNITS/KG/HR 15.921 mls/hr IV .[id number] [facility] Rx#: [id number] Oral 240 Other: Voiding Method Toilet Toilet Toilet # Voids 1 2 1 Weight 89.2 kg GENERAL DESCRIPTION: Elderly female up in the chair, no distress. No tachypnea or accessory muscle of respiration use. HEENT: Shows Pallor , no scleral icterus. Oral mucous membrane is dry. No pharyngeal erythema or thrush NECK: Trachea central, no thyromegaly. LUNGS: Unlabored breathing. Clear to auscultation anteriorly. No wheeze or crackle. HEART: S1, S2, regular rate and rhythm. No loud murmur ABDOMEN: Soft, no tenderness , guarding or rigidity, no organomegaly EXTREMITIES: No edema of feet. SKIN: No rash, no masses palpable. NEUROLOGICAL: The patient is awake, alert, oriented x3, mood and affect normal. Results CBC & Chem 7: 01/06/24 06:31 01/06/24 06:31 Labs: Abnormal Lab Results - Last 24 Hours (Table) 01/05/24 01/05/24 01/06/24 Range/Units 13:12 19:51 06:31 RBC 3.41 L (3.80-5.40) m/uL Hgb 10.5 L (11.4-16.0) gm/dL Hct 32.2 L (34.0-46.0) % APTT 65.3 H 61.3 H (22.0-30.0) sec Chloride (98-107) mmol/L Glucose (74-99) mg/dL 01/06/24 01/06/24 Range/Units 06:31 06:31 RBC (3.80-5.40) m/uL Hgb (11.4-16.0) gm/dL Hct (34.0-46.0) % APTT 59.3 H (22.0-30.0) sec Chloride 110 H (98-107) mmol/L Glucose 104 H (74-99) mg/dL Assessment and Plan (1) UTI (urinary tract infection) Current Visit: No Status: Acute Code(s): N39.0 - URINARY TRACT INFECTION, SITE NOT SPECIFIED SNOMED Code(s): 91891757 Plan: 1patient presented to hospital with increasing shortness of breath with outpatient CT positive for PE for the patient is currently getting heparin patient also have some urinary symptoms of burning frequency with significantly positive UA and a previous history of complicated UTI and sepsis [facility] she did grew Enterobacter on November 24, 2023 and did have a culture done on 01/04/2024 growing gram-negative bacilli. 2we will start the patient on cefepime 2 g every 8 hours while waiting for the culture to finalize Question concern answered We will follow on clinical condition and cultures to further adjust medication if needed Thank you for this consultation we will follow the patient along with you Dictation was produced using [employer] dictation software. please excuse any grammatical, word or spelling errors. Time with Patient: Greater than 30
[2024-01-07] MEDS: PANTOPRAZOLE 40 MG TABLET PO SCH (06:07)
--- NOTE | 2024-01-07 06:39 | PN ---
PROGRESS NOTE DATE OF SERVICE: 01/06/2024 SUBJECTIVE: This is a 68-year-old woman, who was admitted with shortness of breath and pulmonary embolism. She is on IV heparin. No chest pain. No palpitation. The venous Doppler is negative for DVT. The patient is also being evaluated for UTI. No chest pain. No palpitation. OBJECTIVE: VITAL SIGNS: Pulse is 78, blood pressure 156/81, respirations 16. CHEST: A few scattered rhonchi. ABDOMEN: Soft. NERVOUS SYSTEM: Nonfocal. LABORATORY DATA: Reviewed. ASSESSMENT: 1. Shortness of breath with possible acute pulmonary embolism in the right upper and middle lobe segments. 2. Rule out urinary tract infection. 3. Metastatic colon cancer. 4. History of left breast cancer. 5. Hypertension. 6. Multiple complex medical issues. RECOMMENDATIONS AND DISCUSSION: Recommend to continue current medications and continue symptomatic treatment. Otherwise, continue with IV heparin. Increase ambulation. Obtain blood and urine culture to complete the workup. Further recommendations to follow. Repeat labs in the morning. MMODL / IJN: [id number] /
[2024-01-07 07:39] LABS: Basophils # (A) 0.1 k/uL (0-0.2); Basophils % (A) 1 %; Eosinophils # (A) 0.2 k/uL (0-0.7); Eosinophils % (A) 3 %; HCT 34.7 % (34.0-46.0); Lymphocytes # (A) 2.3 k/uL (1.0-4.8); Lymphocytes % (A) 34 %; MCH 29.6 pg (25.0-35.0); MCHC 31.6 g/dL (31.0-37.0); MCV 93.6 fL (80.0-100.0); Mean Platelet Volume 8.6; Monocytes # (A) 0.4 k/uL (0-1.0); Monocytes % (A) 6 %; Neutrophils # (A) 3.5 k/uL (1.3-7.7); Neutrophils % (A) 52 %; Platelet Count 267 k/uL (150-450); RDW 15.5 % (11.5-15.5); WBC 6.7 k/uL (3.8-10.6)
[2024-01-07 09:33] LABS: African American GFR (CKD) >90 (>60 ml/min/1.73 sqM); Anion Gap 5 mmol/L; Blood Urea Nitrogen 15 mg/dL (7-17); Calcium 9.7 mg/dL (8.4-10.2); Carbon Dioxide 22 mmol/L (22-30); Chloride 113 mmol/L (98-107); Glucose 109 mg/dL (74-99); Non-African American GFR(CKD) 85 (>60 ml/min/1.73 sqM); Potassium 4.2 mmol/L (3.5-5.1); Sodium 140 mmol/L (137-145)
[2024-01-07] MEDS: Apixaban Initiation Dose--VTE 5 MG TAB PO SCH (11:52)
--- NOTE | 2024-01-07 12:42 | P.PN ---
Subjective Progress Note Date: 01/07/24 Principal diagnosis: Reason for follow-up is a urinary tract infection Patient is a 68-year-old female with a past medical history significant for left breast cancer colon cancer stage II history of recurrent UTI presenting to the hospital with chest pain and outpatient CT positive for PE also have urinary symptoms significant positive UA concerning for symptomatic U TI. On today's evaluation that is 01/07/2024, Patient is afebrile this morning patient denies having any chest pain shortness of breath or cough, the patient is currently on room air, patient denies any abdominal pain no diarrhea no nausea no vomiting. Patient white count 6.7, creatinine 0.73 urine is growing gram-negative Objective - Vital Signs Vital signs: Vital Signs Temp 98.3 F 01/07/24 07:52 Pulse 75 01/07/24 07:52 Resp 20 01/07/24 07:52 BP 150/91 01/07/24 07:52 Pulse Ox 94 L 01/07/24 07:52 FiO2 Intake & Output 01/06/24 01/07/24 01/07/24 18:59 06:59 18:59 Intake Total 1030 Balance 1030 Weight 93.5 kg Intake: Intake, IV Titration 250 Amount Heparin Sod,Pork in 0.45% 250 NaCl 25,000 unit In 0.45 % NaCl 1 250ml.bag @ 18 UNITS/KG/HR 15.921 mls/hr IV .[id number] [facility] Rx#: [id number] Oral 780 Other: Voiding Method Toilet Toilet Toilet # Voids 2 2 1 - Exam GENERAL DESCRIPTION: An elderly female lying in bed in no distress RESPIRATORY SYSTEM: Unlabored breathing , decreased breath sounds at bases HEART: S1 S2 regular rate and rhythm , ABDOMEN: Soft , no tenderness EXTREMITIES: No edema feet - Labs CBC & Chem 7: 01/07/24 07:24 01/07/24 07:24 Labs: Abnormal Lab Results - Last 24 Hours (Table) 01/06/24 01/07/24 01/07/24 Range/Units 12:30 07:24 07:24 RBC 3.70 L (3.80-5.40) m/uL Hgb 11.0 L (11.4-16.0) gm/dL APTT 48.4 H (22.0-30.0) sec Chloride (98-107) mmol/L Glucose (74-99) mg/dL Urine Appearance Cloudy H (Clear) Urine Protein 1+ H (Negative) Urine Blood Moderate H (Negative) Urine Nitrite Positive H (Negative) Ur Leukocyte Esterase Large H (Negative) Urine RBC >182 H (0-5) /hpf Urine WBC >182 H (0-5) /hpf Urine WBC Clumps Few H (None) /hpf Urine Bacteria Many H (None) /hpf Urine Mucus Rare H (None) /hpf 01/07/24 Range/Units 07:24 RBC (3.80-5.40) m/uL Hgb (11.4-16.0) gm/dL APTT (22.0-30.0) sec Chloride 113 H (98-107) mmol/L Glucose 109 H (74-99) mg/dL Urine Appearance (Clear) Urine Protein (Negative) Urine Blood (Negative) Urine Nitrite (Negative) Ur Leukocyte Esterase (Negative) Urine RBC (0-5) /hpf Urine WBC (0-5) /hpf Urine WBC Clumps (None) /hpf Urine Bacteria (None) /hpf Urine Mucus (None) /hpf Assessment and Plan (1) UTI (urinary tract infection) Current Visit: No Status: Acute Code(s): N39.0 - URINARY TRACT INFECTION, SITE NOT SPECIFIED SNOMED Code(s): 83992886 Plan: 1patient presented to hospital with increasing shortness of breath with outpatient CT positive for PE for the patient is currently getting heparin patient also have some urinary symptoms of burning frequency with significantly positive UA and a previous history of complicated UTI and sepsis review of the culture data she did grew Enterobacter on November 24, 2023 and did have a culture done on 01/04/2024 growing gram-negative bacilli. 2patient did have a CT abdominal pelvis on 01/04/2024 did not show any renal stone or hydronephrosis 3-patient to continue with cefepime 2 g every 8 hours while waiting for the culture to finalize Dictation was produced using [employer] dictation software. please excuse any grammatical, word or spelling errors. Time with Patient: Less than 30
--- NOTE | 2024-01-07 13:37 | P.PN ---
Subjective Progress Note Date: 01/07/24 Principal diagnosis: Pulmonary embolism. Pulmonary consult dated January 05, 2024. 68-year-old female who presents to the emergency department, on January 03. She came in for shortness of breath, and chest pain. She apparently was sent for routine CT scan by her medical oncologist, and apparently the CT scan showed evidence of pulmonary embolism. The patient was having some shortness of breath, chest pain, for about 4 days prior. The patient has a history of breast cancer, that has been treated, and is thought to be in remission. 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 She continues to follow with a medical oncologist for that malignancy. The patient is currently seen today in room 371. She is on IV heparin. She is on room air. Saturations are 96%. She appears relatively comfortable, and she is in a very good mood. Local history includes hypertension. Current laboratory data includes a white count 6.7, hemoglobin 10.3, hematocrit 32, platelet count of 280,000. PTT is 84.1. Sodium 140, potassium 3.6, chlorides 113, CO2 26, BUN 15, creatinine 0.77. Glucose is 108. N-terminal proBNP is 1590. Chest x-ray is within normal range. The CAT scan that was done on January 03 shows right sided upper and middle lobe segmental pulmonary emboli, without overt evidence for right heart strain. There is also bilateral lower lobe atelectatic changes. Progress note dated January 06, 2024. The patient is seen today in room 371. She is a 68-year-old female with a history of multiple cancers including breast cancer, and colon cancer which is metastatic. The patient came into the hospital with shortness of breath and chest pain. She was discovered to have a pulmonary embolism. Currently she is on room air. She is on IV heparin. The patient can be transitioned to a factor Xa inhibitor. Clinically she is very stable. White count of 6, hemoglobin 10.5, hematocrit 32.2, platelet count 253,000. Sodium 139, potassium 3.8, chlorides 110, CO2 22, BUN 15, creatinine 0.79. Glucose is 104. Bilateral lower extremity Dopplers are negative for DVT. Progress note dated January 07, 2024. 68-year-old female seen again in room 371. She was admitted with a diagnosis of pulmonary embolism. The patient continues on IV heparin, but that will be discontinued in favor of Eliquis. The patient is on room air. The patient does have gram-negative bacilli in your urine, yet to be identified. The patient continues on cefepime. She denies any shortness of breath or chest discomfort. Current labs include a white count 6.7, hemoglobin 11, hematocrit 34.7, platelet count of 267,000. Sodium 140, potassium 4.2, chlorides 113, CO2 22, and BUN 15, with a creatinine 0.73. Objective - Vital Signs Vital signs: Vital Signs Temp 98.2 F 01/07/24 11:14 Pulse 68 01/07/24 13:20 Resp 20 01/07/24 11:14 BP 150/89 01/07/24 11:14 Pulse Ox 97 01/07/24 11:14 FiO2 Intake & Output 01/06/24 01/07/24 01/07/24 18:59 06:59 18:59 Intake Total 1030 100.921 Balance 1030 100.921 Weight 93.5 kg Intake: Intake, IV Titration 250 100.921 Amount Heparin Sod,Pork in 0.45% 250 100.921 NaCl 25,000 unit In 0.45 % NaCl 1 250ml.bag @ 18 UNITS/KG/HR 15.921 mls/hr IV .[id number] [facility] Rx#: [id number] Oral 780 Other: Voiding Method Toilet Toilet Toilet # Voids 2 2 1 - Exam No acute distress, oriented 3. Currently on room air. No respiratory distress. HEENT examination is grossly unremarkable. Mucous membranes are moist. No oral lesions. Neck supple. Full range of motion. No adenopathy thyromegaly or neck vein distention. Cardiovascular examination reveals regular rhythm rate. S1-S2 normal. No S3 or S4. No discernible murmur noted. Lungs reveal clear breath sounds. Breath sounds are equal bilaterally. No adventitious lung sounds including wheezes rhonchi or crackles. Abdomen soft bowel sounds are heard. No masses or tenderness. Extremities are intact. No cyanosis clubbing or edema. Skin is without rash or lesion. Neurologic examination is brief but nonfocal. - Labs CBC & Chem 7: 01/07/24 07:24 01/07/24 07:24 Labs: Abnormal Lab Results - Last 24 Hours (Table) 01/07/24 01/07/24 01/07/24 Range/Units 07:24 07:24 07:24 RBC 3.70 L (3.80-5.40) m/uL Hgb 11.0 L (11.4-16.0) gm/dL APTT 48.4 H (22.0-30.0) sec Chloride 113 H (98-107) mmol/L Glucose 109 H (74-99) mg/dL Microbiology - Last 24 Hours (Table) 01/06/24 12:30 Urine Culture - Preliminary Urine,Voided Gram Neg Bacilli Assessment and Plan Assessment: Acute pulmonary embolism, right lung. No evidence of lower extremity DVT. Gram-negative bacteriuria. History of colon cancer, metastatic to the ovaries, and lung. S/P colon resection. History of breast cancer, thought to be in remission. History of hypertension. Plan: Plan dated January 05, 2024. The patient was admitted with a diagnosis of pulmonary embolism, involving the right lung. He developed primarily right upper lobe and right middle lobe. The patient did not have right heart strain. The patient is currently on IV heparin. The patient can be transition to a factor Xa inhibitor. Given her malignancy history, the patient should likely be on blood thinner for the rest of her life. Clinically, her respiratory status is stable. No additional recommendations are made. Plan dated January 06, 2024. This patient does not need to be in the hospital. She can be discharged on a factor Xa inhibitor. She should have anticoagulation for the rest of her life. She is clinically very stable. She is on room air. Labs, x-rays, and medications are reviewed. Plan dated January 07, 2024. The patient's heparin can be converted to Eliquis, and, from the pulmonary perspective, the patient is stable for discharge. She continues on room air. She is getting IV heparin. No fluids. The patient does have gram-negative bacilli in the urine. Yet to be identified. The patient is currently on cefepime. Additional recommendations and suggestions are forthcoming. We do recommend lifelong anticoagulation for this patient. Prognosis is guarded. Time with Patient: Less than 30
[2024-01-07] MEDS ORDERED: METOPROLOL SUCCINATE (ER) 50 MG TAB.ER.24H PO SCH (15:00)
--- NOTE | 2024-01-07 15:39 | P.PN ---
Subjective Progress Note Date: 01/07/24 Principal diagnosis: PE In f/u today pt denies any c/o, no bleeding, she has been started on abx with improvement in lt back/flank discomfort. Objective - Vital Signs Vital signs: Vital Signs Temp 98.2 F 01/07/24 11:14 Pulse 68 01/07/24 13:20 Resp 20 01/07/24 11:14 BP 150/89 01/07/24 11:14 Pulse Ox 97 01/07/24 11:14 FiO2 Intake & Output 01/06/24 01/07/24 01/07/24 18:59 06:59 18:59 Intake Total 1030 100.921 Balance 1030 100.921 Weight 93.5 kg Intake: Intake, IV Titration 250 100.921 Amount Heparin Sod,Pork in 0.45% 250 100.921 NaCl 25,000 unit In 0.45 % NaCl 1 250ml.bag @ 18 UNITS/KG/HR 15.921 mls/hr IV .[id number] [facility] Rx#: [id number] Oral 780 Other: Voiding Method Toilet Toilet Toilet # Voids 2 2 1 - Constitutional General appearance: Present: average body habitus, cooperative, no acute distress - EENT Eyes: Present: anicteric sclerae, EOMI ENT: Present: hearing grossly normal - Respiratory Respiratory: bilateral: CTA - Cardiovascular Rhythm: regular Heart sounds: normal: S1, S2 Abnormal Heart Sounds: Absent: systolic murmur, diastolic murmur, rub, S3 Gallop, S4 Gallop, click, other - Peripheral edema leg Peripheral Edema: bilateral: None - Gastrointestinal General gastrointestinal: Present: normal bowel sounds, soft - Integumentary Integumentary: Present: normal - Neurologic Neurologic: Present: CNII-XII intact - Musculoskeletal Musculoskeletal: Present: strength equal bilaterally - Psychiatric Psychiatric: Present: A&O x's 3, appropriate affect, intact judgment & insight - Labs CBC & Chem 7: 01/07/24 07:24 01/07/24 07:24 Labs: Abnormal Lab Results - Last 24 Hours (Table) 01/07/24 01/07/24 01/07/24 Range/Units 07:24 07:24 07:24 RBC 3.70 L (3.80-5.40) m/uL Hgb 11.0 L (11.4-16.0) gm/dL APTT 48.4 H (22.0-30.0) sec Chloride 113 H (98-107) mmol/L Glucose 109 H (74-99) mg/dL Microbiology - Last 24 Hours (Table) 01/06/24 12:30 Urine Culture - Preliminary Urine,Voided Gram Neg Bacilli Assessment and Plan (1) Pulmonary embolism Current Visit: Yes Status: Acute Priority: High Code(s): I26.99 - OTHER PULMONARY EMBOLISM WITHOUT ACUTE COR PULMONALE SNOMED Code(s): 63763571 (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 -Due to patient's symptom of shortness of breath and some chest tightness it was felt that she should be sent to the hospital and placed on heparin drip and to monitor symptoms versus treating outpatient. -Patient reporting no longer symptomatic -No bleeding reported on heparin drip -Bilateral lower extremity Doppler neg for DVT -Eliquis co-pay $38, pt agreeable -Ok for DC from Hem/Onc standpoint once eliquis Rx in place, pt reporting stable improved SOB, chest tightness and once cleared by Attending and other consulting MDs Anemia -Anemia is mild, chronic secondary to patient's long history of treatment and current treatment. Counts are continually monitored outpatient. -No transfusion needed at this time History of colon cancer -Diagnosis and treatment as stated in consult -Patient continues on Braftovi and Erbitux, tolerating well. -Most recent imaging reporting stable disease, no new lesions. -Ok to cont braftovi for now. F/U wit Dr. James next week before next erbitux infusion-this may be delayed because of abx but, will verify Breast cancer -Patient has been on AI since 2018. -Cont tamoxifen-pt is anticoagulated Recurrent, abd resistance UTI -ID consult to treat. -No need to hold Braftovi on IV cefepime-no drug interaction.Will need drug interaction checked based on what oral abx pt is sent home on
--- NOTE | 2024-01-08 04:31 | PN ---
PROGRESS NOTE DATE OF SERVICE: 01/07/2024 SUBJECTIVE: This is a 68-year-old woman, who was admitted with shortness of breath and acute pulmonary embolism, has UTI also. The final cultures are pending. The patient had previously UTI with sepsis also. The patient is on anticoagulation. PAST MEDICAL HISTORY: Reviewed. REVIEW OF SYSTEMS: A 14-point review of systems is negative except as mentioned earlier. CURRENT MEDICATIONS: Reviewed. PHYSICAL EXAMINATION: VITAL SIGNS: Pulse is 68, blood pressure 150/89, respirations 20. HEENT: Conjunctivae normal. NECK: No JVD. CARDIOVASCULAR: S1, S2. RESPIRATIONS: Breath sounds diminished at the bases. Scattered rhonchi. ABDOMEN: Soft. NERVOUS SYSTEM: Nonfocal. LABORATORY DATA: Reviewed. ASSESSMENT: 1. Acute pulmonary embolism in the setting of shortness of breath, right upper and middle lobe segments. 2. Acute urinary tract infection. 3. History of previous urinary tract infection and sepsis. 4. Metastatic colon cancer history. 5. History of left breast cancer. 6. Hypertension. 7. Multiple complex medical issues. RECOMMENDATIONS AND DISCUSSION: Recommend to continue current management, continue symptomatic treatment. Otherwise, I would recommend to continue the antibiotics and continue with Eliquis starter pack 10 mg b.i.d. and the patient is on cefepime at this time. Closely monitor with Infectious Disease. We will obtain the cultures and I would keep the patient till the final cultures are obtained because of the patient's history of severe sepsis and multiple other comorbidities. Again, prognosis guarded because of multiple complex medical issues. Further recommendations to follow. See orders for further details. Repeat labs will be ordered. MMODL / IJN: [id number] /
[2024-01-08 08:42] LABS: Basophils # (A) 0.1 k/uL (0-0.2); Basophils % (A) 1 %; Eosinophils # (A) 0.2 k/uL (0-0.7); Eosinophils % (A) 3 %; HCT 34.5 % (34.0-46.0); HGB 10.9 gm/dL (11.4-16.0); Lymphocytes # (A) 0.9 k/uL (1.0-4.8); Lymphocytes % (A) 16 %; MCH 29.4 pg (25.0-35.0); MCHC 31.5 g/dL (31.0-37.0); MCV 93.2 fL (80.0-100.0); Monocytes # (A) 0.6 k/uL (0-1.0); Monocytes % (A) 10 %; Neutrophils # (A) 3.8 k/uL (1.3-7.7); Neutrophils % (A) 68 %; Platelet Count 255 k/uL (150-450); RDW 15.4 % (11.5-15.5); WBC 5.7 k/uL (3.8-10.6)
[2024-01-08 08:55] LABS: ALT 23 U/L (4-34); AST 34 U/L (14-36); African American GFR (CKD) >90 (>60 ml/min/1.73 sqM); Albumin 3.4 g/dL (3.5-5.0); Alkaline Phosphatase 77 U/L (38-126); Anion Gap 4 mmol/L; Blood Urea Nitrogen 15 mg/dL (7-17); Calcium 9.1 mg/dL (8.4-10.2); Carbon Dioxide 25 mmol/L (22-30); Chloride 110 mmol/L (98-107); Glucose 93 mg/dL (74-99); Non-African American GFR(CKD) 80 (>60 ml/min/1.73 sqM); Potassium 4.2 mmol/L (3.5-5.1); Sodium 139 mmol/L (137-145); Total Bilirubin 0.4 mg/dL (0.2-1.3); Total Protein 6.4 g/dL (6.3-8.2)
--- NOTE | 2024-01-08 12:10 | P.PN ---
Subjective Progress Note Date: 01/08/24 Principal diagnosis: Pulmonary embolism. Pulmonary consult dated January 05, 2024. 68-year-old female who presents to the emergency department, on January 03. She came in for shortness of breath, and chest pain. She apparently was sent for routine CT scan by her medical oncologist, and apparently the CT scan showed evidence of pulmonary embolism. The patient was having some shortness of breath, chest pain, for about 4 days prior. The patient has a history of breast cancer, that has been treated, and is thought to be in remission. 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 She continues to follow with a medical oncologist for that malignancy. The patient is currently seen today in room 371. She is on IV heparin. She is on room air. Saturations are 96%. She appears relatively comfortable, and she is in a very good mood. Local history includes hypertension. Current laboratory data includes a white count 6.7, hemoglobin 10.3, hematocrit 32, platelet count of 280,000. PTT is 84.1. Sodium 140, potassium 3.6, chlorides 113, CO2 26, BUN 15, creatinine 0.77. Glucose is 108. N-terminal proBNP is 1590. Chest x-ray is within normal range. The CAT scan that was done on January 03 shows right sided upper and middle lobe segmental pulmonary emboli, without overt evidence for right heart strain. There is also bilateral lower lobe atelectatic changes. Progress note dated January 06, 2024. The patient is seen today in room 371. She is a 68-year-old female with a history of multiple cancers including breast cancer, and colon cancer which is metastatic. The patient came into the hospital with shortness of breath and chest pain. She was discovered to have a pulmonary embolism. Currently she is on room air. She is on IV heparin. The patient can be transitioned to a factor Xa inhibitor. Clinically she is very stable. White count of 6, hemoglobin 10.5, hematocrit 32.2, platelet count 253,000. Sodium 139, potassium 3.8, chlorides 110, CO2 22, BUN 15, creatinine 0.79. Glucose is 104. Bilateral lower extremity Dopplers are negative for DVT. Progress note dated January 07, 2024. 68-year-old female seen again in room 371. She was admitted with a diagnosis of pulmonary embolism. The patient continues on IV heparin, but that will be discontinued in favor of Eliquis. The patient is on room air. The patient does have gram-negative bacilli in your urine, yet to be identified. The patient continues on cefepime. She denies any shortness of breath or chest discomfort. Current labs include a white count 6.7, hemoglobin 11, hematocrit 34.7, platelet count of 267,000. Sodium 140, potassium 4.2, chlorides 113, CO2 22, and BUN 15, with a creatinine 0.73. Progress note dated January 08, 2024. 68-year-old female seen today in room 371. The patient was admitted with a diag nosis of pulmonary embolism. The patient has been transition to a factor Xa inhibitor. The patient remains on cefepime, for a gram-negative bacillary urinary tract infection. The patient is not receiving any supplemental oxygen. Current laboratory data includes a white count 5.7, hemoglobin 10.9, hematocrit 34.5, and a normal platelet count. Sodium 139, potassium 4.2, chlorides 110, CO2 25, BUN and creatinine are both normal. Objective - Vital Signs Vital signs: Vital Signs Temp 98.2 F 01/08/24 11:41 Pulse 82 01/08/24 11:41 Resp 17 01/08/24 11:41 BP 143/81 01/08/24 11:41 Pulse Ox 96 01/08/24 11:41 FiO2 Intake & Output 01/07/24 01/08/24 01/08/24 18:59 06:59 18:59 Intake Total 336.921 540 180 Balance 336.921 540 180 Intake: Intake, IV Titration 100.921 Amount Heparin Sod,Pork in 0.45% 100.921 NaCl 25,000 unit In 0.45 % NaCl 1 250ml.bag @ 18 UNITS/KG/HR 15.921 mls/hr IV .[id number] [facility] Rx#: [id number] Oral 236 540 180 Other: Voiding Method Toilet Toilet Toilet # Voids 5 1 1 - Exam No acute distress, oriented 3. Currently on room air. No respiratory distress. HEENT examination is grossly unremarkable. Mucous membranes are moist. No oral lesions. Neck supple. Full range of motion. No adenopathy thyromegaly or neck vein distention. Cardiovascular examination reveals regular rhythm rate. S1-S2 normal. No S3 or S4. No discernible murmur noted. Lungs reveal clear breath sounds. Breath sounds are equal bilaterally. No adventitious lung sounds including wheezes rhonchi or crackles. Abdomen soft bowel sounds are heard. No masses or tenderness. Extremities are intact. No cyanosis clubbing or edema. Skin is without rash or lesion. Neurologic examination is brief but nonfocal. - Labs CBC & Chem 7: 01/08/24 07:47 01/08/24 07:47 Labs: Abnormal Lab Results - Last 24 Hours (Table) 01/08/24 01/08/24 Range/Units 07:47 07:47 RBC 3.70 L (3.80-5.40) m/uL Hgb 10.9 L (11.4-16.0) gm/dL Lymphocytes # 0.9 L (1.0-4.8) k/uL Chloride 110 H (98-107) mmol/L Albumin 3.4 L (3.5-5.0) g/dL Microbiology - Last 24 Hours (Table) 01/06/24 14:15 Blood Culture - Preliminary Blood 01/06/24 12:30 Urine Culture - Preliminary Urine,Voided Gram Neg Bacilli Assessment and Plan Assessment: Acute pulmonary embolism, right lung. No evidence of lower extremity DVT. Gram-negative bacteriuria. History of colon cancer, metastatic to the ovaries, and lung. S/P colon resection. History of breast cancer, thought to be in remission. History of hypertension. Plan: Plan dated January 05, 2024. The patient was admitted with a diagnosis of pulmonary embolism, involving the right lung. He developed primarily right upper lobe and right middle lobe. The patient did not have right heart strain. The patient is currently on IV heparin. The patient can be transition to a factor Xa inhibitor. Given her malignancy history, the patient should likely be on blood thinner for the rest of her life. Clinically, her respiratory status is stable. No additional recommendations are made. Plan dated January 06, 2024. This patient does not need to be in the hospital. She can be discharged on a factor Xa inhibitor. She should have anticoagulation for the rest of her life. She is clinically very stable. She is on room air. Labs, x-rays, and medications are reviewed. Plan dated January 07, 2024. The patient's heparin can be converted to Eliquis, and, from the pulmonary perspective, the patient is stable for discharge. She continues on room air. She is getting IV heparin. No fluids. The patient does have gram-negative bacilli in the urine. Yet to be identified. The patient is currently on ce fepime. Additional recommendations and suggestions are forthcoming. We do recommend lifelong anticoagulation for this patient. Prognosis is guarded. Plan dated January 08, 2024. The patient has been transition to a factor Xa inhibitor. The patient is on room air. The patient is not receiving any IV fluids. The patient is doing relatively well. She continues on cefepime. Her bacteria in the urine, has not yet been identified. We will continue to follow make recommendations. Certainly from the pulmonary standpoint, the patient stable for discharge. The patient should be on blood thinner, for the rest of her life. She continues on Eliquis. Prognosis is guarded. Time with Patient: Less than 30
--- NOTE | 2024-01-08 12:43 | P.PN ---
Subjective Progress Note Date: 01/08/24 Principal diagnosis: Reason for follow-up is a urinary tract infection Patient is a 68-year-old female with a past medical history significant for left breast cancer colon cancer stage II history of recurrent UTI presenting to the hospital with chest pain and outpatient CT positive for PE also have urinary symptoms significant positive UA concerning for symptomatic U TI. On today's evaluation that is 01/08/2024,the patient denies any fever or any chills, patient is breathing comfortably on room air, the patient denies chest pain shortness of breath and no significant cough, patient denies abdominal pain, no nausea vomiting or diarrhea. Patient is complaining of some hematuria today. Patient urine is growing gram-negative bacilli white count is 5.7, creatinine 0.77 Objective - Vital Signs Vital signs: Vital Signs Temp 97.6 F 01/08/24 07:53 Pulse 87 01/08/24 07:53 Resp 17 01/08/24 07:53 BP 169/83 01/08/24 07:53 Pulse Ox 92 L 01/08/24 07:53 FiO2 Intake & Output 01/07/24 01/08/24 01/08/24 18:59 06:59 18:59 Intake Total 336.921 540 180 Balance 336.921 540 180 Intake: Intake, IV Titration 100.921 Amount Heparin Sod,Pork in 0.45% 100.921 NaCl 25,000 unit In 0.45 % NaCl 1 250ml.bag @ 18 UNITS/KG/HR 15.921 mls/hr IV .[id number] [facility] Rx#: [id number] Oral 236 540 180 Other: Voiding Method Toilet Toilet Toilet # Voids 5 1 1 - Exam GENERAL DESCRIPTION: An elderly female lying in bed in no distress RESPIRATORY SYSTEM: Unlabored breathing , decreased breath sounds at bases HEART: S1 S2 regular rate and rhythm , ABDOMEN: Soft , no tenderness EXTREMITIES: No edema feet - Labs CBC & Chem 7: 01/08/24 07:47 01/08/24 07:47 Labs: Abnormal Lab Results - Last 24 Hours (Table) 01/08/24 01/08/24 Range/Units 07:47 07:47 RBC 3.70 L (3.80-5.40) m/uL Hgb 10.9 L (11.4-16.0) gm/dL Lymphocytes # 0.9 L (1.0-4.8) k/uL Chloride 110 H (98-107) mmol/L Albumin 3.4 L (3.5-5.0) g/dL Microbiology - Last 24 Hours (Table) 01/06/24 14:15 Blood Culture - Preliminary Blood 01/06/24 12:30 Urine Culture - Preliminary Urine,Voided Gram Neg Bacilli Assessment and Plan (1) UTI (urinary tract infection) Current Visit: No Status: Acute Code(s): N39.0 - URINARY TRACT INFECTION, SITE NOT SPECIFIED SNOMED Code(s): 19349204 Plan: 1patient presented to hospital with increasing shortness of breath with outpatient CT positive for PE for the patient is currently getting heparin patient also have some urinary symptoms of burning frequency with significantly positive UA and a previous history of complicated UTI and sepsis review of the culture data she did grew Enterobacter on November 24, 2023 and did have a culture done on 01/04/2024 growing gram-negative bacilli. 2patient did have a CT abdominal pelvis on 01/04/2024 did not show any renal stone or hydronephrosis 3-patient has developed some hematuria could be related to the blood thinner she is receiving for the PE no concern for worsening infection she is covered with cefepime awaiting the culture Dictation was produced using [employer] dictation software. please excuse any gramma tical, word or spelling errors. Time with Patient: Less than 30
--- NOTE | 2024-01-08 16:06 | P.PN ---
Subjective Progress Note Date: 01/08/24 68-year-old female who presents to the emergency department, on January 03. She came in for shortness of breath, and chest pain. She apparently was sent for routine CT scan by her medical oncologist, and apparently the CT scan showed evidence of pulmonary embolism. The patient was having some shortness of breath, chest pain, for about 4 days prior. The patient has a history of breast cancer, that has been treated, and is thought to be in remission. 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 She continues to follow with a medical oncologist for that malignancy. The patient is currently seen today in room 371. She is on IV heparin. She is on room air. Saturations are 96%. She appears relatively comfortable, and she is in a very good mood. Local history includes hypertension. Current laboratory data includes a white count 6.7, hemoglobin 10.3, hematocrit 32, platelet count of 280,000. PTT is 84.1. Sodium 140, potassium 3.6, chlorides 113, CO2 26, BUN 15, creatinine 0.77. Glucose is 108. N-terminal proBNP is 1590. Chest x-ray i s within normal range. The CAT scan that was done on January 03 shows right sided upper and middle lobe segmental pulmonary emboli, without overt evidence for right heart strain. There is also bilateral lower lobe atelectatic changes. Objective - Vital Signs Vital signs: Vital Signs Temp 97.6 F 01/08/24 07:53 Pulse 87 01/08/24 07:53 Resp 17 01/08/24 07:53 BP 169/83 01/08/24 07:53 Pulse Ox 92 L 01/08/24 07:53 FiO2 Intake & Output 01/07/24 01/08/24 01/08/24 18:59 06:59 18:59 Intake Total 336.921 540 180 Balance 336.921 540 180 Intake: Intake, IV Titration 100.921 Amount Heparin Sod,Pork in 0.45% 100.921 NaCl 25,000 unit In 0.45 % NaCl 1 250ml.bag @ 18 UNITS/KG/HR 15.921 mls/hr IV .[id number] [facility] Rx#: [id number] Oral 236 540 180 Other: Voiding Method Toilet Toilet Toilet # Voids 5 1 1 - Exam No acute distress, oriented 3. Currently on room air. No respiratory dis tress. HEENT examination is grossly unremarkable. Mucous membranes are moist. No oral lesions. Neck supple. Full range of motion. No adenopathy thyromegaly or neck vein distention. Cardiovascular examination reveals regular rhythm rate. S1-S2 normal. No S3 or S4. No discernible murmur noted. Lungs reveal clear breath sounds. Breath sounds are equal bilaterally. No adventitious lung sounds including wheezes rhonchi or crackles. Abdomen soft bowel sounds are heard. No masses or tenderness. Extremities are intact. No cyanosis clubbing or edema. Skin is without rash or lesion. Neurologic examination is brief but nonfocal. - Labs CBC & Chem 7: 01/08/24 07:47 01/08/24 07:47 Labs: Abnormal Lab Results - Last 24 Hours (Table) 01/08/24 01/08/24 Range/Units 07:47 07:47 RBC 3.70 L (3.80-5.40) m/uL Hgb 10.9 L (11.4-16.0) gm/dL Lymphocytes # 0.9 L (1.0-4.8) k/uL Chloride 110 H (98-107) mmol/L Albumin 3.4 L (3.5-5.0) g/dL Microbiology - Last 24 Hours (Table) 01/06/24 14:15 Blood Culture - Preliminary Blood 01/06/24 12:30 Urine Culture - Preliminary Urine,Voided Gram Neg Bacilli Assessment and Plan Assessment: Acute pulmonary embolism, right lung -Patient is being followed by pulmonary service and has been transitioned to oral anticoagulation with apixaban 10 mg twice daily for a week followed by 5 mg twice daily - No evidence of lower extremity DVT. Hematuria; mild; per patient started last night; will continue with Eliquis at this time and monitor H&H closely Gram-negative bacteriuria; patient is currently placed on cefepime 2 g IV every 8 hours; await blood culture and urine culture reports for further recommendations on antibiotic therapy. History of colon cancer, metastatic to the ovaries, and lung. -- S/P colon resection. History of breast cancer; in remission; continue with tamoxifen 20 mg daily. History of hypertension; valsartan 320 mg daily; metoprolol succinate 150 mg daily. Vitamin D deficiency/vitamin B12 deficiency; continue home supplements of vitamin D and vitamin B12 DVT prophylaxis; SCDs/Eliquis CODE STATUS; full code
[2024-01-08 16:43] LABS: Basophils # (A) 0.1 k/uL (0-0.2); Basophils % (A) 1 %; Eosinophils # (A) 0.3 k/uL (0-0.7); Eosinophils % (A) 3 %; HCT 36.3 % (34.0-46.0); HGB 11.2 gm/dL (11.4-16.0); Hypochromasia Slight; Lymphocytes # (A) 1.4 k/uL (1.0-4.8); Lymphocytes % (A) 17 %; MCH 29.5 pg (25.0-35.0); MCHC 30.9 g/dL (31.0-37.0); MCV 95.3 fL (80.0-100.0); Mean Platelet Volume 7.4; Monocytes # (A) 0.6 k/uL (0-1.0); Monocytes % (A) 8 %; Neutrophils # (A) 5.5 k/uL (1.3-7.7); Neutrophils % (A) 68 %; Platelet Count 297 k/uL (150-450); RDW 15.2 % (11.5-15.5); WBC 8.1 k/uL (3.8-10.6)
[2024-01-08 20:52] VITALS: TEMP 98.1
[2024-01-09 00:20] LABS: HCT 31.5 % (34.0-46.0); HGB 10.1 gm/dL (11.4-16.0); MCH 30.1 pg (25.0-35.0); MCHC 32.2 g/dL (31.0-37.0); MCV 93.5 fL (80.0-100.0); Platelet Count 231 k/uL (150-450); RBC 3.37 m/uL (3.80-5.40); RDW 15.5 % (11.5-15.5)
[2024-01-09 04:34] LABS: HCT 32.6 % (34.0-46.0); HGB 10.2 gm/dL (11.4-16.0); Hypochromasia Slight; MCH 29.6 pg (25.0-35.0); MCHC 31.3 g/dL (31.0-37.0); MCV 94.7 fL (80.0-100.0); Mean Platelet Volume 7.8; Platelet Count 253 k/uL (150-450); RBC 3.44 m/uL (3.80-5.40); RDW 15.4 % (11.5-15.5); WBC 6.8 k/uL (3.8-10.6)
[2024-01-09 04:56] LABS: African American GFR (CKD) 82 (>60 ml/min/1.73 sqM); Anion Gap 4 mmol/L; Blood Urea Nitrogen 22 mg/dL (7-17); Calcium 9.1 mg/dL (8.4-10.2); Carbon Dioxide 21 mmol/L (22-30); Chloride 112 mmol/L (98-107); Glucose 106 mg/dL (74-99); Non-African American GFR(CKD) 71 (>60 ml/min/1.73 sqM); Potassium 4.2 mmol/L (3.5-5.1); Sodium 137 mmol/L (137-145)
[2024-01-09 08:35] VITALS: RESP 17
--- NOTE | 2024-01-09 10:57 | P.PN ---
Subjective Progress Note Date: 01/09/24 Principal diagnosis: Pulmonary embolism. Pulmonary consult dated January 05, 2024. 68-year-old female who presents to the emergency department, on January 03. She came in for shortness of breath, and chest pain. She apparently was sent for routine CT scan by her medical oncologist, and apparently the CT scan showed evidence of pulmonary embolism. The patient was having some shortness of breath, chest pain, for about 4 days prior. The patient has a history of breast cancer, that has been treated, and is thought to be in remission. 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 She continues to follow with a medical oncologist for that malignancy. The patient is currently seen today in room 371. She is on IV heparin. She is on room air. Saturations are 96%. She appears relatively comfortable, and she is in a very good mood. Local history includes hypertension. Current laboratory data includes a white count 6.7, hemoglobin 10.3, hematocrit 32, platelet count of 280,000. PTT is 84.1. Sodium 140, potassium 3.6, chlorides 113, CO2 26, BUN 15, creatinine 0.77. Glucose is 108. N-terminal proBNP is 1590. Chest x-ray is within normal range. The CAT scan that was done on January 03 shows right sided upper and middle lobe segmental pulmonary emboli, without overt evidence for right heart strain. There is also bilateral lower lobe atelectatic changes. Progress note dated January 06, 2024. The patient is seen today in room 371. She is a 68-year-old female with a history of multiple cancers including breast cancer, and colon cancer which is metastatic. The patient came into the hospital with shortness of breath and chest pain. She was discovered to have a pulmonary embolism. Currently she is on room air. She is on IV heparin. The patient can be transitioned to a factor Xa inhibitor. Clinically she is very stable. White count of 6, hemoglobin 10.5, hematocrit 32.2, platelet count 253,000. Sodium 139, potassium 3.8, chlorides 110, CO2 22, BUN 15, creatinine 0.79. Glucose is 104. Bilateral lower extremity Dopplers are negative for DVT. Progress note dated January 07, 2024. 68-year-old female seen again in room 371. She was admitted with a diagnosis of pulmonary embolism. The patient continues on IV heparin, but that will be discontinued in favor of Eliquis. The patient is on room air. The patient does have gram-negative bacilli in your urine, yet to be identified. The patient continues on cefepime. She denies any shortness of breath or chest discomfort. Current labs include a white count 6.7, hemoglobin 11, hematocrit 34.7, platelet count of 267,000. Sodium 140, potassium 4.2, chlorides 113, CO2 22, and BUN 15, with a creatinine 0.73. Progress note dated January 08, 2024. 68-year-old female seen today in room 371. The patient was admitted with a diag nosis of pulmonary embolism. The patient has been transition to a factor Xa inhibitor. The patient remains on cefepime, for a gram-negative bacillary urinary tract infection. The patient is not receiving any supplemental oxygen. Current laboratory data includes a white count 5.7, hemoglobin 10.9, hematocrit 34.5, and a normal platelet count. Sodium 139, potassium 4.2, chlorides 110, CO2 25, BUN and creatinine are both normal. Progress note dated January 09, 2024. 68-year-old female seen in room 371. The patient is on room air. She continues on cefepime. Her urine cultures were positive for Enterobacter erogenous, which is sensitive to many oral antibiotics. Current labs include a white count 6.8, hemoglobin 10.2, hematocrit 32.6, and a normal platelet count. Sodium 137, potassium 4.2, chlorides 112, CO2 21, BUN 22, creatinine 0.85. Objective - Vital Signs Vital signs: Vital Signs Temp 98.1 F 01/09/24 08:33 Pulse 94 01/09/24 08:33 Resp 17 01/09/24 08:33 BP 129/68 01/09/24 08:33 Pulse Ox 96 01/09/24 08:33 FiO2 Intake & Output 01/08/24 01/09/24 01/09/24 18:59 06:59 18:59 Intake Total 560 540 180 Balance 560 540 180 Intake: IV 20 Invasive Line 2 20 Oral 540 540 180 Other: Voiding Method Toilet Toilet Toilet # Voids 1 1 1 - Exam No acute distress, oriented 3. Currently on room air. No respiratory distress. HEENT examination is grossly unremarkable. Mucous membranes are moist. No oral lesions. Neck supple. Full range of motion. No adenopathy thyromegaly or neck vein distention. Cardiovascular examination reveals regular rhythm rate. S1-S2 normal. No S3 or S4. No discernible murmur noted. Lungs reveal clear breath sounds. Breath sounds are equal bilaterally. No adventitious lung sounds including wheezes rhonchi or crackles. Abdomen soft bowel sounds are heard. No masses or tenderness. Extremities are intact. No cyanosis clubbing or edema. Skin is without rash or lesion. Neurologic examination is brief but nonfocal. - Labs CBC & Chem 7: 01/09/24 04:27 01/09/24 04:27 Labs: Abnormal Lab Results - Last 24 Hours (Table) 01/08/24 01/08/24 01/09/24 Range/Units 16:32 23:52 04:27 RBC 3.37 L (3.80-5.40) m/uL Hgb 11.2 L 10.1 L (11.4-16.0) gm/dL Hct 31.5 L (34.0-46.0) % MCHC 30.9 L (31.0-37.0) g/dL Chloride 112 H (98-107) mmol/L Carbon Dioxide 21 L (22-30) mmol/L BUN 22 H (7-17) mg/dL Glucose 106 H (74-99) mg/dL 01/09/24 Range/Units 04:27 RBC 3.44 L (3.80-5.40) m/uL Hgb 10.2 L (11.4-16.0) gm/dL Hct 32.6 L (34.0-46.0) % MCHC (31.0-37.0) g/dL Chloride (98-107) mmol/L Carbon Dioxide (22-30) mmol/L BUN (7-17) mg/dL Glucose (74-99) mg/dL Microbiology - Last 24 Hours (Table) 01/06/24 14:15 Blood Culture - Preliminary Blood 01/06/24 12:30 Urine Culture - Final Urine,Voided Enterobacter aerogenes Assessment and Plan Assessment: Acute pulmonary embolism, right lung. No evidence of lower extremity DVT. Enterobacter aerogenes urinary tract infection. History of colon cancer, metastatic to the ovaries, and lung. S/P colon resection. History of breast cancer, thought to be in remission. History of hypertension. Plan: Plan dated January 05, 2024. The patient was admitted with a diagnosis of pulmonary embolism, involving the r ight lung. He developed primarily right upper lobe and right middle lobe. The patient did not have right heart strain. The patient is currently on IV heparin. The patient can be transition to a factor Xa inhibitor. Given her malignancy history, the patient should likely be on blood thinner for the rest of her life. Clinically, her respiratory status is stable. No additional recommendations are made. Plan dated January 06, 2024. This patient does not need to be in the hospital. She can be discharged on a factor Xa inhibitor. She should have anticoagulation for the rest of her life. She is clinically very stable. She is on room air. Labs, x-rays, and medications are reviewed. Plan dated January 07, 2024. The patient's heparin can be converted to Eliquis, and, from the pulmonary perspective, the patient is stable for discharge. She continues on room air. She is getting IV heparin. No fluids. The patient does have gram-negative bacilli in the urine. Yet to be identified. The patient is currently on cefepime. Additional recommendations and suggestions are forthcoming. We do recommend lifelong anticoagulation for this patient. Prognosis is guarded. Plan dated January 08, 2024. The patient has been transition to a factor Xa inhibitor. The patient is on chema m air. The patient is not receiving any IV fluids. The patient is doing relatively well. She continues on cefepime. Her bacteria in the urine, has not yet been identified. We will continue to follow make recommendations. Certainly from the pulmonary standpoint, the patient stable for discharge. The patient should be on blood thinner, for the rest of her life. She continues on Eliquis. Prognosis is guarded. Plan dated January 09, 2024. The patient is currently on room air. The pathogen in her urine has been identified. The patient continues on cefepime. From the pulmonary standpoint, the patient stable for discharge. She is currently on a factor Xa inhibitor. Labs, x-rays, medications are reviewed. She was started on Eliquis. She is tolerating it well. She should stay on it for the rest of her life. Labs, x- rays, and medications are reviewed. Prognosis is guarded. Time with Patient: Less than 30
[2024-01-09 11:46] VITALS: BP 124/81; PULSE 68
--- NOTE | 2024-01-09 13:08 | P.PN ---
Subjective Progress Note Date: 01/09/24 Principal diagnosis: Reason for follow-up is a urinary tract infection Patient is a 68-year-old female with a past medical history significant for left breast cancer colon cancer stage II history of recurrent UTI presenting to the hospital with chest pain and outpatient CT positive for PE also have urinary symptoms significant positive UA concerning for symptomatic U TI. On today's evaluation that is 01/09/2024,the patient remains to be afebrile, patient is on room air not requiring supplemental oxygen and denies any shortness of breath no chest pain or cough.Patient denies having any nausea or vomiting, no abdominal pain and no diarrhea has been reported, has been complaining of some hematuria. Patient white count 6.8 creatinine 0.85 urine with Enterobacter blood culture negative Objective - Vital Signs Vital signs: Vital Signs Temp 98.1 F 01/09/24 08:33 Pulse 94 01/09/24 08:33 Resp 17 01/09/24 08:33 BP 129/68 01/09/24 08:33 Pulse Ox 96 01/09/24 08:33 FiO2 Intake & Output 01/08/24 01/09/24 01/09/24 18:59 06:59 18:59 Intake Total 560 540 180 Balance 560 540 180 Intake: IV 20 Invasive Line 2 20 Oral 540 540 180 Other: Voiding Method Toilet Toilet Toilet # Voids 1 1 1 - Exam GENERAL DESCRIPTION: An elderly female lying in bed in no distress RESPIRATORY SYSTEM: Unlabored breathing , decreased breath sounds at bases HEART: S1 S2 regular rate and rhythm , ABDOMEN: Soft , no tenderness EXTREMITIES: No edema feet - Labs CBC & Chem 7: 01/09/24 04:27 01/09/24 04:27 Labs: Abnormal Lab Results - Last 24 Hours (Table) 01/08/24 01/08/24 01/09/24 Range/Units 16:32 23:52 04:27 RBC 3.37 L (3.80-5.40) m/uL Hgb 11.2 L 10.1 L (11.4-16.0) gm/dL Hct 31.5 L (34.0-46.0) % MCHC 30.9 L (31.0-37.0) g/dL Chloride 112 H (98-107) mmol/L Carbon Dioxide 21 L (22-30) mmol/L BUN 22 H (7-17) mg/dL Glucose 106 H (74-99) mg/dL 01/09/24 Range/Units 04:27 RBC 3.44 L (3.80-5.40) m/uL Hgb 10.2 L (11.4-16.0) gm/dL Hct 32.6 L (34.0-46.0) % MCHC (31.0-37.0) g/dL Chloride (98-107) mmol/L Carbon Dioxide (22-30) mmol/L BUN (7-17) mg/dL Glucose (74-99) mg/dL Microbiology - Last 24 Hours (Table) 01/06/24 14:15 Blood Culture - Preliminary Blood 01/06/24 12:30 Urine Culture - Final Urine,Voided Enterobacter aerogenes Assessment and Plan (1) UTI (urinary tract infection) Current Visit: No Status: Acute Code(s): N39.0 - URINARY TRACT INFECTION, SITE NOT SPECIFIED SNOMED Code(s): 44150910 Plan: 1patient presented to hospital with increasing shortness of breath with outpatient CT positive for PE for the patient is currently getting heparin patient also have some urinary symptoms of burning frequency with significantly positive UA and a previous history of complicated UTI and sepsis review of the culture data she did grew Enterobacter on November 24, 2023 and did have a culture done on 01/04/2024 growing gram-negative bacilli. 2patient did have a CT abdominal pelvis on 01/04/2024 did not show any renal stone or hydronephrosis 3-patient urine is growing Enterobacter ideally would have to use Cipro however the patient is on Cymbalta with drug interaction we will suggest oral Ceftin x 2 weeks prescription has been sent to the pharmacy discussed with admitting physician as well as with the daughter at the bedside Dictation was produced using [employer] dictation software. please excuse any grammatical, word or spelling errors. Time with Patient: Less than 30
== END 2024-01-09 15:22 | disposition home or self-care (01) | DRG 176 ==
LOC: EC 13:59 → 3SCARD 15:52 → OBSVTOIN 01-06 08:37
PROVIDERS: ADMIT Hospitalist; ATTEND Hospitalist
DX: I26.99 Other pulmonary embolism without acute cor pulmonale (principal); C79.60 Secondary malignant neoplasm of unspecified ovary; C78.02 Secondary malignant neoplasm of left lung; C78.01 Secondary malignant neoplasm of right lung; D61.9 Aplastic anemia, unspecified; C79.81 Secondary malignant neoplasm of breast; J98.11 Atelectasis; N39.0 Urinary tract infection, site not specified; C18.9 Malignant neoplasm of colon, unspecified; I10 Essential (primary) hypertension; J44.9 Chronic obstructive pulmonary disease, unspecified; F03.90 Unspecified dementia, unspecified severity, without behavioral disturbance, psychotic disturbance, mood disturbance, and anxiety; R31.9 Hematuria, unspecified; E55.9 Vitamin D deficiency, unspecified; E53.8 Deficiency of other specified B group vitamins; R09.02 Hypoxemia; Z79.01 Long term (current) use of anticoagulants; Z87.440 Personal history of urinary (tract) infections; Z90.49 Acquired absence of other specified parts of digestive tract; Z87.891 Personal history of nicotine dependence; Z85.3 Personal history of malignant neoplasm of breast; Z90.710 Acquired absence of both cervix and uterus; Z92.3 Personal history of irradiation
CPT/HCPCS: 36415; 71045; 80048; 80053; 81001; 83605; 83880; 84484; 85025; 85027; 85610; 85730; 87040; 87077; 87086; 87186; 93005; 93306; 93970; 94760; 96365; 96366; 96375; 99291

== ENCOUNTER → 2024-01-04 | Outpatient (CLI) | payer MEDICARE, BC ==
[2024-01-04 10:08] LABS: African American GFR (CKD) 77 (>60 ml/min/1.73 sqM); Blood Urea Nitrogen 21 mg/dL (7-17); Non-African American GFR(CKD) 67 (>60 ml/min/1.73 sqM)
--- NOTE | 2024-01-04 12:39 | CT ---
"EXAMINATION TYPE: CT ChestAbdPelvis w con CT DLP: 1882.2 mGycm, Automated exposure control for dose reduction was used. DATE OF EXAM: 01/04/2024 11:30 AM COMPARISON: CT chest abdomen pelvis 10/09/2023, 07/03/2023, 04/13/2023, CT abdomen and pelvis 09/05/2023 CLINICAL INDICATION:Female, 68 years old with history of C18.2 MALIGNANT NEOPLASM OF ASCENDING COLON; PHH, f/u colon cancer Technique: Multiple axial images of the chest, abdomen, and pelvis were obtained following the intrav enous administration of 100 mL Isovue-300. Oral contrast was administered. Two-dimensional coronal an d sagittal reconstructions were obtained. Findings: CHEST: LUNGS/ PLEURA: No pleural effusion or pneumothorax. Peripheral left upper lobe stable wedge-shaped re gions of scarring. Additional linear scarring within the bilateral lower lobes. No new suspicious pul monary nodule or mass. Mild to moderate centrilobular emphysematous changes. AIRWAY: Patent and unremarkable.. HEART: Size within normal limits.No pericardial effusion. MEDIASTINUM: No evidence of adenopathy. VASCULATURE: No aortic aneurysm. Right chest wall subclavian approach Mediport catheter with distal tip terminating in the mid SVC. There are filling defects identified within the right main pulmonary artery extending into the right upper and middle lobe segmental pulmonary arteries (series 3, image 3 1). No pulmonary artery dilatation. MUSCULOSKELETAL: No acute osseous abnormalities. Remote left-sided rib fractures. Mild multilevel deg enerative disc disease. No aggressive osseous lesion. SOFT TISSUES/LYMPH NODES: Unremarkable. LOWER NECK: No significant findings. ABDOMEN: ABDOMEN LIVER: Unremarkable GALLBLADDER AND BILE DUCTS: The gallbladder is surgically absent. No biliary ductal dilatation. PANCREAS: Unremarkable. SPLEEN: Unremarkable. ADRENAL GLANDS: Unremarkable. KIDNEYS AND URETERS: No evidence of hydronephrosis or renal calculus. Left ureteral stent identified. The kidneys enhance symmetrically. Subcentimeter hyperdense focus within the left mid kidney which i s too small to characterize but likely represents a cyst. PELVIS BLADDER: Left sided ureteral stent is identified. Urinary bladder is under distended which limits heriberto luation. REPRODUCTIVE: The uterus is surgically absent. ABDOMEN & PELVIS STOMACH AND BOWEL: Stomach and duodenum are unremarkable. Distal colonic diverticulosis without evide nce for acute diverticulitis. Enteric contrast reaches the rectum. . Distention of the sigmoid colon which limits evaluation. No evidence of bowel obstruction. PERITONEUM: No evidence of pneumoperitoneum or free fluid. There is similar vague soft tissue density along the left peripheral mesentery which is similar prior exam. VASCULATURE: Mild atherosclerotic calcifications are present throughout the abdominal aorta and its b ranches. No abdominal aortic aneurysm. MUSCULOSKELETAL: No acute osseous abnormalities. No aggressive osseous lesion. Mild multilevel degene rative disc disease. LYMPH NODES: No evidence for lymphadenopathy. SOFT TISSUE/ABDOMINAL WALL: Stable subcutaneous nodule measuring up to 2.6 cm along the left posterio r flank soft tissues above the iliac crests extending to the skin surface. Additional left mid back s ubcutaneous nodule measured 1.2 cm redemonstrated. IMPRESSION: 1. Right-sided upper and middle lobe segmental pulmonary emboli without overt evidence for right hea rt strain. 2. Bilateral lower lobe atelectatic change identified. 3. Similar soft tissue bandlike density within the left peripheral mesentery concerning for possible omental caking. 4. Poor distention of the sigmoid colon which limits evaluation for recurrent neoplasm. 5. Stable indeterminate subcutaneous soft tissue nodules within the left back. A Red level critical message alert has been initiated for [facility]~[id number] Vick Ross via the [employer] good 360 | Critical Results System on 01/04/2024 12:36 PM. This message alert has been sent to Eddie~A Z374 Vick Erika Vandana via the preferences provided by the clinician for the receipt of Radiology Criti lee Findings. Message ID [id number]. [facility], , 01/04/2024 12:36 PM"
== END | disposition home or self-care (01) ==
LOC: RADCTMAIN 09:24
PROVIDERS: ATTEND Internal Medicine Hematology & Oncology
DX: C18.2 Malignant neoplasm of ascending colon (principal); R91.1 Solitary pulmonary nodule; D05.12 Intraductal carcinoma in situ of left breast; D47.2 Monoclonal gammopathy; I26.99 Other pulmonary embolism without acute cor pulmonale; J98.11 Atelectasis
CPT/HCPCS: 82565; 84520; 71260; 74177; 36415; Q9967

== ENCOUNTER 2024-02-18 13:11 | Emergency (ER) | payer MEDICARE, BC ==
[2024-02-18 13:58] LABS: Basophils # (A) 0.1 k/uL (0-0.2); Basophils % (A) 1 %; Eosinophils # (A) 0.3 k/uL (0-0.7); Eosinophils % (A) 3 %; HCT 36.3 % (34.0-46.0); HGB 11.5 gm/dL (11.4-16.0); Lymphocytes # (A) 1.4 k/uL (1.0-4.8); Lymphocytes % (A) 15 %; MCH 29.9 pg (25.0-35.0); MCHC 31.7 g/dL (31.0-37.0); MCV 94.1 fL (80.0-100.0); Mean Platelet Volume 8.3; Monocytes # (A) 0.5 k/uL (0-1.0); Monocytes % (A) 5 %; Neutrophils # (A) 7.3 k/uL (1.3-7.7); Neutrophils % (A) 75 %; Platelet Count 289 k/uL (150-450); RBC 3.86 m/uL (3.80-5.40); RDW 14.8 % (11.5-15.5); WBC 9.6 k/uL (3.8-10.6)
--- NOTE | 2024-02-18 14:13 | XR ---
EXAMINATION TYPE: XR chest 2V DATE OF EXAM: 02/18/2024 2:06 PM COMPARISON: Chest radiographs from 01/05/2024, CT chest abdomen and pelvis 01/04/2024 TECHNIQUE: XR chest 2V Frontal and lateral views of the chest. CLINICAL INDICATION:Female, 68 years old with history of dysrhythmia; FINDINGS: Lungs/Pleura: There is no evidence of pleural effusion, focal consolidation, or pneumothorax. Stable linear scarring within the left lower lung. Hyperinflation. Pulmonary vascularity: Unremarkable. Heart/mediastinum: Cardiomediastinal silhouette is unremarkable. Musculoskeletal: No acute osseous pathology. Other findings: None Lines/Tubes: [id number]-Szev projecting over the right hemithorax with distal tip projecting over the superior vena cava. IMPRESSION: 1. No acute cardiopulmonary disease/process. 2. Stable left lower lung linear scarring. 3. COPD changes. [facility], , 02/18/2024 2:11 PM
--- NOTE | 2024-02-18 14:30 | ED ---
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 Patient states she is on chemotherapy. Patient states over the last couple of days she has been having episodes where she feels her heart racing especially when she is walking because she gets very lightheaded normally passes out. Patient states she has not passed out. Patient denies chest pain patient states when it does occur it makes her short of breath but it only last about 10 minutes and then it resolves. Patient denies any fever chills. Patient has any swelling to the legs. Patient [place] any symptoms currently - Related Data Home Medications Medication Instructions Recorded Confirmed Multivitamins, Thera [Multivitamin 1 tab PO DAILY 07/10/17 01/04/24 (formulary)] Tamoxifen Citrate 20 mg PO DAILY 12/16/17 01/04/24 Cholecalciferol [Vitamin D3 (25 50 mcg PO DAILY 05/02/20 01/04/24 Mcg = 1000 Iu)] Cyanocobalamin [Vitamin B-12] 500 mcg PO DAILY 05/02/20 01/04/24 Ascorbic Acid [Vitamin C] 1,000 mg PO DAILY 06/05/22 01/04/24 Cetuximab [Erbitux] 1 dose IV TU 09/04/22 01/04/24 Prochlorperazine Maleate 10 mg PO Q6H PRN 09/04/22 01/04/24 Valsartan 320 mg PO DAILY 09/04/22 01/04/24 DULoxetine HCL [Cymbalta] 60 mg PO BID 09/05/23 01/04/24 Encorafenib [Braftovi] 300 mg PO HS 09/05/23 01/04/24 Magnesium Oxide [Magnesium] 500 mg PO HS 12/04/23 01/04/24 Scopolamine 1 mg/72 Hr Patch 1 patch TRANSDERM Q72H PRN 12/04/23 01/04/24 [TransDerm Scop] Metoprolol Succinate (ER) [Toprol 50 mg PO DAILY 01/04/24 01/04/24 XL] Previous Rx's Medication Instructions Recorded Metoprolol Succinate (ER) [Toprol 100 mg PO DAILY #30 tab 09/10/23 XL] Apixaban [Eliquis Starter Pack 5 - 10 mg PO DIRECTED 30 Days 01/05/24 (for VTE)] #1 each Apixaban [Eliquis Starter Pack 5 - 10 mg PO DIRECTED 30 Days 01/09/24 (for VTE)] #1 each Apixaban [Eliquis Starter Pack 5 - 10 mg PO DIRECTED 30 Days 01/09/24 (for VTE)] #1 each cefuroxime axetiL [Ceftin] 500 mg PO BID #28 tab 01/09/24 cefuroxime axetiL [Ceftin] 500 mg PO BID 14 Days #28 tab 01/09/24 Allergies Allergy/AdvReac Type Severity Reaction Status Date / Time No Known Allergies Allergy Verified 02/18/24 13:20 Review of Systems ROS Statement: Those systems with pertinent positive or pertinent negative responses have been documented in the HPI. ROS Other: All systems not noted in ROS Statement are negative. 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 last chemo june 2020. METS to both lungs History of Any Multi-Drug Resistant Organisms: None Reported Past Surgical History: Bowel Resection, Breast Surgery, Cholecystectomy, Hysterectomy Additional Past Surgical History / Comment(s): LT BREAST LUMPECTOMY-RADIATION, COLONOSCOPY, HAS PORT A CATH, Urethral stent-replaced every 3 months Past Anesthesia/Blood Transfusion Reactions: No Reported Reaction Additional Past Anesthesia/Blood Transfusion Reaction / Comment(s): No problems with previous blood transfusion. Past Psychological History: No Psychological Hx Reported Smoking Status: Former smoker Past Alcohol Use History: Occasional Past Drug Use History: None Reported - Past Family History Mother Family Medical History: COPD, Dementia Father Family Medical History: AFIB, Cancer Additional Family Medical History / Comment(s): Lung cancer. Sister(s) Family Medical History: Cancer Additional Family Medical History / Comment(s): VOCAL CORD CANCER General Exam - General Exam Comments Initial Comments: GENERAL: Patient is well-developed and well-nourished. Patient is nontoxic and well- hydrated and is in no acute distress. ENT: Neck is soft and supple. No significant lymphadenopathy is noted. Oropharynx is clear. Moist mucous membranes. Neck has full range of motion without eliciting any pain. EYES: The sclera were anicteric and conjunctiva were pink and moist. Extraocular movements were intact and pupils were equal round and reactive to light. Eyelids were unremarkable. PULMONARY: Unlabored respirations. Good breath sounds bilaterally. No audible rales rhonchi or wheezing was noted. CARDIOVASCULAR: There is a regular rate and rhythm without any murmurs gallops or rubs. ABDOMEN: Soft and nontender with normal bowel sounds. SKIN: Skin is clear with no lesions or rashes and otherwise unremarkable. NEUROLOGIC: Patient is alert and oriented x3. Cranial nerves II through XII are grossly intact. Motor and sensory are also intact. Normal speech, volume and content. Symmetrical smile. MUSCULOSKELETAL: Normal extremities with adequate strength and full range of motion. LYMPHATICS: No significant lymphadenopathy is noted PSYCHIATRIC: Normal psychiatric evaluation. Limitations: no limitations Course Vital Signs 02/18/24 02/18/24 02/18/24 13:20 13:55 14:04 Temperature 97.9 F Pulse Rate 99 112 H Pulse Rate [ 90 Standing] Pulse Rate [ 82 Supine Pulse Oximetery] Pulse Rate [ 81 Supine] Respiratory 16 Rate Blood Pressure 127/80 Blood Pressure 138/83 [Left Arm Supine] Blood Pressure 143/81 [Sitting] Blood Pressure 123/80 [Standing] O2 Sat by Pulse 98 Oximetry 02/18/24 02/18/24 14:59 16:15 Temperature Pulse Rate 75 73 Pulse Rate [ Standing] Pulse Rate [ Supine Pulse Oximetery] Pulse Rate [ Supine] Respiratory 16 18 Rate Blood Pressure 144/82 157/91 Blood Pressure [Left Arm Supine] Blood Pressure [Sitting] Blood Pressure [Standing] O2 Sat by Pulse 98 97 Oximetry Medical Decision Making - Medical Decision Making EKG is interpreted by myself EKG shows 90 bpm sinus rhythm. NC interval 153 QRS is 74 QT interval 371 QTc is 419. Patient's EKG shows no ST segment elevation or depression Was pt. sent in by a medical professional or institution (, PA, [employer], urgent care, hospital, or group home...) When possible be specific @ -No Did you speak to anyone other than the patient for history (EMS, parent, family, police, friend...)? What history was obtained from this source @ -No Did you review nursing and triage notes (agree or disagree)? Why? @ -I reviewed and agree with nursing and triage notes Were old charts reviewed (outside hosp., previous admission, EMS record, old EKG, old radiological studies, urgent care reports/EKG's, group home records)? Report findings @ -No old charts were reviewed Differential Diagnosis? @ -Differential Palpitations Ventricular arrhythmias, atrial arrhythmias, myocardial infarction, anemia, thyrotoxicosis, electrolyte imbalance, hypokalemia, pulmonary embolism, pulmonary disease, drugs, alcohol, anxiety, stress.... This is not meant to be an all-inclusive list. EKG interpreted by me (3pts min.). @ -As above X-rays interpreted by me (1pt min.). @ -Chest x-ray showed no acute abnormality CT interpreted by me (1pt min.). @ -CT of the chest showed no pulmonary embolism a mass was slightly bigger than the prior exam. U/S interpreted by me (1pt. min.). @ -None done What testing was considered but not performed or refused? (CT, X-rays, U/S, labs)? Why? @ -None What meds were considered but not given or refused? Why? @ -None Did you discuss the management of the patient with other professionals (professionals i.e. , PA, [employer], lab, RT, psych nurse, social media developer, senior compensation consultant, teacher, ground defence officer, child welfare caseworker)? Give summary @ -No Was smoking cessation discussed for >3mins.? @ -No Was critical care preformed (if so, how long)? @ -No Were there social determinants of health that impacted care today? How? (Homelessness, low income, unemployed, alcoholism, drug addiction, transportation, low edu. Level, literacy, decrease access to med. care, prison, rehab)? @ -No Was there de-escalation of care discussed even if they declined (Discuss DNR or withdrawal of care, Hospice)? DNR status @ -No What co-morbidities impacted this encounter? (DM, HTN, Smoking, COPD, CAD, Cancer, CVA, ARF, Chemo, Hep., AIDS, mental health diagnosis, sleep apnea, morbid obesity)? @ -None Was patient admitted / discharged? Hospital course, mention meds given and route, prescriptions, significant lab abnormalities, going to OR and other pe rtinent info. @ -Patient had no symptoms while in the emergency department no palpitations. Patient was given magnesium and potassium because the magnesium is 1.2 and potassium is 3.0 patient states this has been an ongoing problem. Undiagnosed new problem with uncertain prognosis? @ -No Drug Therapy requiring intensive monitoring for toxicity (Heparin, Nitro, Insulin, Cardizem)? @ -No Were any procedures done? @ -No Diagnosis/symptom? @ -Hypomagnesemia Acute, or Chronic, or Acute on Chronic? @ -Acute Uncomplicated (without systemic symptoms) or Complicated (systemic symptoms)? @ -Uncomplicated Side effects of treatment? @ -No Exacerbation, Progression, or Severe Exacerbation? @ -No Poses a threat to life or bodily function? How? (Chest pain, [place], [place], pneumonia, PE, COPD, DKA, ARF, appy, cholecystitis, CVA, Diverticulitis, Homicidal, Suicidal, threat to staff... and all critical care pts) @ -No Diagnosis/symptom? @ -Hypokalemia Acute, or Chronic, or Acute on Chronic? @ -Acute Uncomplicated (without systemic symptoms) or Complicated (systemic symptoms)? @ -Default Side effects of treatment? @ -None Exacerbation, Progression, or Severe Exacerbation] @ -No Poses a threat to life or bodily function? @ -No Diagnosis/symptom? @ -Palpitations Acute, or Chronic, or Acute on Chronic? @ -Acute Uncomplicated (without systemic symptoms) or Complicated (systemic symptoms)? @ -Complicated Side effects of treatment? @ -None Exacerbation, Progression, or Severe Exacerbation] @ -No Poses a threat to life or bodily function? @ -No - Lab Data Result diagrams: 02/18/24 13:46 02/18/24 14:32 Lab Results 02/18/24 02/18/24 02/18/24 Range/Units 13:46 13:46 14:22 WBC 9.6 (3.8-10.6) k/uL RBC 3.86 (3.80-5.40) m/uL Hgb 11.5 (11.4-16.0) gm/dL Hct 36.3 (34.0-46.0) % MCV 94.1 (80.0-100.0) fL MCH 29.9 (25.0-35.0) pg MCHC 31.7 (31.0-37.0) g/dL RDW 14.8 (11.5-15.5) % Plt Count 289 (150-450) k/uL MPV 8.3 Neutrophils % 75 % Lymphocytes % 15 % Monocytes % 5 % Eosinophils % 3 % Basophils % 1 % Neutrophils # 7.3 (1.3-7.7) k/uL Lymphocytes # 1.4 (1.0-4.8) k/uL Monocytes # 0.5 (0-1.0) k/uL Eosinophils # 0.3 (0-0.7) k/uL Basophils # 0.1 (0-0.2) k/uL PT (10.0-12.5) sec INR (<1.2) APTT (22.0-30.0) sec D-Dimer 1.23 H (<0.60) mg/L FEU Sodium (137-145) mmol/L Potassium (3.5-5.1) mmol/L Chloride (98-107) mmol/L Carbon Dioxide (22-30) mmol/L Anion Gap mmol/L BUN (7-17) mg/dL Creatinine (0.52-1.04) mg/dL Est GFR (CKD-EPI)AfAm (>60 ml/min/1.73 sqM) Est GFR (CKD-EPI)NonAf (>60 ml/min/1.73 sqM) Glucose (74-99) mg/dL Calcium (8.4-10.2) mg/dL Magnesium (1.6-2.3) mg/dL Total Bilirubin (0.2-1.3) mg/dL AST (14-36) U/L ALT (4-34) U/L Alkaline Phosphatase (38-126) U/L Troponin I <0.012 (0.000-0.034) ng/mL Total Protein (6.3-8.2) g/dL Albumin (3.5-5.0) g/dL 02/18/24 02/18/24 Range/Units 14:22 14:32 WBC (3.8-10.6) k/uL RBC (3.80-5.40) m/uL Hgb (11.4-16.0) gm/dL Hct (34.0-46.0) % MCV (80.0-100.0) fL MCH (25.0-35.0) pg MCHC (31.0-37.0) g/dL RDW (11.5-15.5) % Plt Count (150-450) k/uL MPV Neutrophils % % Lymphocytes % % Monocytes % % Eosinophils % % Basophils % % Neutrophils # (1.3-7.7) k/uL Lymphocytes # (1.0-4.8) k/uL Monocytes # (0-1.0) k/uL Eosinophils # (0-0.7) k/uL Basophils # (0-0.2) k/uL PT 11.0 (10.0-12.5) sec INR 1.0 (<1.2) APTT 20.3 L (22.0-30.0) sec D-Dimer (<0.60) mg/L FEU Sodium 140 (137-145) mmol/L Potassium 3.0 L (3.5-5.1) mmol/L Chloride 109 H (98-107) mmol/L Carbon Dioxide 25 (22-30) mmol/L Anion Gap 6 mmol/L BUN 11 (7-17) mg/dL Creatinine 0.79 (0.52-1.04) mg/dL Est GFR (CKD-EPI)AfAm 90 (>60 ml/min/1.73 sqM) Est GFR (CKD-EPI)NonAf 78 (>60 ml/min/1.73 sqM) Glucose 121 H (74-99) mg/dL Calcium 8.5 (8.4-10.2) mg/dL Magnesium 1.2 L (1.6-2.3) mg/dL Total Bilirubin 0.2 (0.2-1.3) mg/dL AST 39 H (14-36) U/L ALT 57 H (4-34) U/L Alkaline Phosphatase 85 (38-126) U/L Troponin I (0.000-0.034) ng/mL Total Protein 6.6 (6.3-8.2) g/dL Albumin 3.6 (3.5-5.0) g/dL Disposition Clinical Impression: Palpitations, Hypokalemia, Hypomagnesemia Disposition: HOME SELF-CARE Condition: Good Instructions (If sedation given, give patient instructions): Heart Palpitations (ED), Hypomagnesemia (ED), Hypokalemia (ED) Is patient prescribed a controlled substance at d/c from ED?: No Referrals: Josefa Asif MD [Primary Care Provider] - 1-2 days Time of Disposition: 17:00
[2024-02-18 14:44] LABS: ALT 57 U/L (4-34); AST 39 U/L (14-36); African American GFR (CKD) 90 (>60 ml/min/1.73 sqM); Albumin 3.6 g/dL (3.5-5.0); Alkaline Phosphatase 85 U/L (38-126); Anion Gap 6 mmol/L; Blood Urea Nitrogen 11 mg/dL (7-17); Calcium 8.5 mg/dL (8.4-10.2); Carbon Dioxide 25 mmol/L (22-30); Chloride 109 mmol/L (98-107); Glucose 121 mg/dL (74-99); Magnesium 1.2 mg/dL (1.6-2.3); Non-African American GFR(CKD) 78 (>60 ml/min/1.73 sqM); Sodium 140 mmol/L (137-145); Total Bilirubin 0.2 mg/dL (0.2-1.3); Total Protein 6.6 g/dL (6.3-8.2)
[2024-02-18 14:47] LABS: Partial Thromboplastin Time 20.3 sec (22.0-30.0)
[2024-02-18] MEDS: POTASSIUM CHLORIDE 10 MEQ in WATER FOR INJECTION 1 100ML.BAG IVPB STA (15:53)
[2024-02-18] MEDS: POTASSIUM CHLORIDE ER 20 MEQ TAB.ER PO STA (15:55)
--- NOTE | 2024-02-18 15:58 | CT ---
EXAMINATION TYPE: CT chest angio for PE DATE OF EXAM: 02/18/2024 3:51 PM COMPARISON: CTs dating back to 04/13/2023 CLINICAL INDICATION: Female, 68 years old with history of Palpitations, elevated D-dimer; Elevated D- dimer, SOB, Hx of PE's. TECHNIQUE/CONTRAST: CTA scan of the thorax is performed with IV Contrast, patient injected with 100 ml mL of Isovue 370, MIP images are created and reviewed these are created on a separate workstation.. CT DLP: 376.8 mGycm, Automated exposure control for dose reduction was used. FINDINGS: Lungs/Pleura: No evidence of focal consolidation, pleural effusion or pneumothorax. Bronchovascular c rowding with atelectasis of the bilateral lower lungs. Peripheral consolidation changes in left upper lung measuring 26 x 23 mm with cystic component. The soft tissue appears more pronounced compared to multiple priors. Airway: Large airways are patent. Heart: Heart is within normal limits for size. Vasculature: There is no evidence for a filling defect within the pulmonary vasculature to suggest ac nikolai pulmonary embolism. The pulmonary artery is of normal size. Chest wall Shpyqu-y-[id number] terminating in the superior vena cava. Mediastinum: No gross evidence of adenopathy. Musculoskeletal: No acute osseous abnormalities Soft Tissues/lymph nodes: Unremarkable. Lower neck: No significant findings. Upper Abdomen: The gallbladder surgically absent. Left ureteral stent partially visualized. IMPRESSION: 1. No evidence of pulmonary embolism. 2. Elevated right diaphragm with atelectasis changes additionally there is atelectasis changes in the 3. Enlarging left upper lung peripheral cystic and partly solid lesion compared to 01/04/2024. Soft t issue component has slowly increased in size dating back to multiple priors. If not reperformed consi juan pet/CT. [facility], , 02/18/2024 3:55 PM
[2024-02-18 16:16] VITALS: RESP 18
[2024-02-18] MEDS: MAGNESIUM SULFATE-D5W PMX 1 GM in DEXTROSE/WATER 1 100ML.BAG IVPB SCH (16:17)
[2024-02-18 18:25] VITALS: BP 142/88; PULSE 82; TEMP 98.7
== END 2024-02-18 18:32 | disposition home or self-care (01) ==
LOC: EC 13:11
DX: E87.6 Hypokalemia (principal); E83.42 Hypomagnesemia; Z87.891 Personal history of nicotine dependence
CPT/HCPCS: 36415; 93005; 85379; 80053; 83735; 84484; 85025; 85610; 85730; 71046; 71275; 99285; 96365; 96366; 96368; J3475; J3480; Q9967

== ENCOUNTER 2024-04-14 09:38 | Day surgery (SDC) | payer MEDICARE, BC ==
[2024-04-11 12:03] VITALS: BMI 29.0
[~2024-04-14 09:38] MED LIST changes: -DEXAMETHASONE SOD PHOSPHATE 4 MG/ML 1 ML VIAL IV ONE; -LACTATED RINGERS 1,000 ML IV SCH; +MIDAZOLAM 2 MG/2 ML VIAL IV PRN; -ONDANSETRON 4 MG/2 ML VIAL IVP ONE; -droPERidol 5 MG/2 ML VIAL IVP ONE; +fentaNYL (PF) 50 MCG/ML 2 ML AMP IVP PRN
[2024-04-14 10:17] VITALS: TEMP 98.5
[2024-04-14] MEDS: IV FLUID CONTINUATION 1,000 ML IV ONE ×2 (10:25→12:35)
[2024-04-14] MEDS: ONDANSETRON 4 MG/2 ML VIAL IVP ONE (10:29)
[2024-04-14] MEDS: LACTATED RINGERS 1,000 ML IV SCH (10:29)
[2024-04-14] MEDS: DEXAMETHASONE SOD PHOSPHATE 4 MG/ML 1 ML VIAL IV ONE (10:30)
--- NOTE | 2024-04-14 11:51 | P.GSHP ---
History of Present Illness H&P Date: 04/10/24 Chief Complaint: Left hydronephrosis The patient is a 68-year-old white female with a history of multiple malignancies, including breast and colon cancer. She is now receiving systemic chemotherapy. She was found earlier this year to have left hydroureteronephrosis. She underwent cystoscopy with left ureteral stent insertion on 07/16/2022. At that time, she was found to have a left distal ureteral stricture, which was opened with balloon dilation. CT scan in August margi thu interval development of right hydronephrosis. A right retrograde pyelogram at that time showed no evidence of right hydronephrosis. She underwent left ureteral stent change most recently on 12/10/2023. A 24 cm, 7 Czech double-J silicone ureteral stent was placed at that time. A recent urine culture has shown E. coli and Enterobacter, for which she is currently taking Doxycycline. Past Medical History Past Medical History: Cancer, Pulmonary Embolus (PE) Additional Past Medical History / Comment(s): LT BREAST CANCER, colon cancer stage II-METS TO OVARIES-with chemo. last chemo june 2020. METS to both lungs History of Any Multi-Drug Resistant Organisms: None Reported Past Surgical History: Bowel Resection, Breast Surgery, Cholecystectomy, Hysterectomy Additional Past Surgical History / Comment(s): LT BREAST LUMPECTOMY-RADIATION, COLONOSCOPY, HAS PORT A CATH, Urethral stent-replaced every 3 months Past Anesthesia/Blood Transfusion Reactions: No Reported Reaction Additional Past Anesthesia/Blood Transfusion Reaction / Comment(s): No problems with previous blood transfusion. Past Psychological History: No Psychological Hx Reported Smoking Status: Former smoker Past Alcohol Use History: Occasional Past Drug Use History: None Reported - Past Family History Mother Family Medical History: COPD, Dementia Father Family Medical History: AFIB, Cancer Additional Family Medical History / Comment(s): Lung cancer. Sister(s) Family Medical History: Cancer Additional Family Medical History / Comment(s): VOCAL CORD CANCER Medications and Allergies Home Medications Medication Instructions Recorded Confirmed Type Multivitamins, Thera [Multivitamin 1 tab PO DAILY 07/10/17 04/14/24 History (formulary)] Tamoxifen Citrate 20 mg PO DAILY 12/16/17 04/14/24 History Cholecalciferol [Vitamin D3 (25 50 mcg PO DAILY 05/02/20 04/14/24 History Mcg = 1000 Iu)] Cyanocobalamin [Vitamin B-12] 500 mcg PO DAILY 05/02/20 04/14/24 History Ascorbic Acid [Vitamin C] 1,000 mg PO DAILY 06/05/22 04/14/24 History Cetuximab [Erbitux] 1 dose IV TU 09/04/22 04/14/24 History Prochlorperazine Maleate 10 mg PO Q6H PRN 09/04/22 04/14/24 History Valsartan 320 mg PO DAILY 09/04/22 04/14/24 History DULoxetine HCL [Cymbalta] 60 mg PO BID 09/05/23 04/14/24 History Encorafenib [Braftovi] 300 mg PO HS 09/05/23 04/14/24 History Magnesium Oxide [Magnesium] 500 mg PO HS 12/04/23 04/14/24 History Scopolamine 1 mg/72 Hr Patch 1 patch TRANSDERM Q72H PRN 12/04/23 04/14/24 His tory [TransDerm Scop] Apixaban [Eliquis] 5 mg PO BID 04/11/24 04/14/24 History Doxycycline Hyclate 100 mg PO DIRECTED 04/11/24 04/14/24 History Metoprolol Succinate (ER) [Toprol 150 mg PO DAILY 04/11/24 04/14/24 History XL] Allergies Allergy/AdvReac Type Severity Reaction Status Date / Time No Known Allergies Allergy Verified 04/14/24 10:14 Surgical - Exam - General well developed, well nourished, no distress - Respiratory normal respiratory effort - Psychiatric oriented to time, oriented to person, oriented to place, speech is normal, memory intact Results - Imaging CT scan - abdomen: report reviewed, image reviewed Assessment and Plan (1) Hydronephrosis with ureteral stricture, not elsewhere classified Current Visit: No Status: Acute Code(s): N13.1 - HYDRONEPHROSIS W URETERAL STRICTURE, NEC SNOMED Code(s): 62304858 Plan: Cystoscopy, left ureteral stent change. The procedure has been reviewed in detail with the patient. She is aware of potential risks, which include anesthesia, infection, loss of ureteral access, and ureteral injury.
[2024-04-14] MEDS ORDERED: MIDAZOLAM 2 MG/2 ML VIAL ONE (11:57)
[2024-04-14] MEDS ORDERED: LIDOCAINE 1% INJ 10MG/ML (20 ML MDV) ONE (11:57)
[2024-04-14] MEDS ORDERED: fentaNYL (PF) 50 MCG/ML 2 ML AMP ONE (11:57)
[2024-04-14] MEDS ORDERED: PROPOFOL 10 MG/ML 20 ML VIAL IV ONE (11:57)
[2024-04-14 12:37] VITALS: RESP 16
--- NOTE | 2024-04-14 12:49 | P.OP ---
Date of Procedure: 04/14/24 Preoperative Diagnosis: Left hydronephrosis Postoperative Diagnosis: Same Procedure(s) Performed: Cystoscopy, left ureteral stent change Anesthesia: MAC Surgeon: Krystian Dunlap Estimated Blood Loss (ml): 0 IV fluids (ml): 550 Pathology: none sent Condition: stable Disposition: PACU Indications for Procedure: The patient is a 68-year-old white female with a history of multiple malignancies, including breast and colon cancer. She is now receiving systemic chemotherapy. She was found earlier this year to have left hydroureteronephrosis. She underwent cystoscopy with left ureteral stent insertion on 07/16/2022. At that time, she was found to have a left distal ureteral stricture, which was opened with balloon dilation. CT scan in August showed interval development of right hydronephrosis. A right retrograde pyelogram at that time showed no evidence of right hydronephrosis. She underwent left ureteral stent change most recently on 12/10/2023. A 26 cm, 7 [place]ine[place] double-J silicone ureteral stent was placed at that time. A recent urine culture has shown E. coli and Enterobacter, for which she is currently taking Doxycycline. Operative Findings: Successful left ureteral stent change. Description of Procedure: The patient was taken to the operating room and placed in the dorsolithotomy position, with legs supported in Willie stirrups. The external genitalia was prepped and draped sterilely. The 30 lens was used to introduce the 22-[place] Stortz cystoscopic sheath through the urethra and into the bladder under direct vision. The bladder was examined in its entirety. No abnormalities were seen, other than focal erythema at the right bladder dome. Grasping forceps were used to grasp the distal end of the left ureteral stent, which was removed along with the cystoscope. A 0.035 inch Glidewire to be passed through the stent and up to the left renal pelvis. This was made difficult by the fact that the lumen was partially occluded. The stent was removed, and the Glidewire was backloaded into the cystoscope, which was replaced into the bladder. A 26 cm, 7-[place]ine[place] double-J silicone ureteral stent was placed over the wire. Proper stent positioning was verified fluoroscopically and endoscopically. The bladder was emptied and the cystoscope removed. The patient tolerated the procedure well was taken to the recovery room in stable condition.
--- NOTE | 2024-04-14 12:57 | FL ---
EXAMINATION TYPE: FL guidance operating room DATE OF EXAM: 04/14/2024 CLINICAL HISTORY: Kidney stone TECHNIQUE: Fluoroscopy. COMPARISON: None. FINDINGS: Fluoroscopic guidance was provided during cystoscopy with stent insertion procedure perfor med by Dr. Davies. A total of 15 seconds of fluoroscopic time was utilized during the procedure and 4 spot images was acquired. Total dose area product (DAP) in uGy*m?, mGy*cm? (or similar: 0.25384. Im ages acquired show eventual placement of ureter stent. IMPRESSION: As Above. [facility], , 04/14/2024 12:55 PM
[2024-04-14 13:06] VITALS: BP 146/89; PULSE 65
== END 2024-04-14 13:50 | disposition home or self-care (01) ==
LOC: OR 09:38
PROVIDERS: ATTEND Urology
DX: N13.1 Hydronephrosis with ureteral stricture, not elsewhere classified (principal); Z85.3 Personal history of malignant neoplasm of breast; Z85.038 Personal history of other malignant neoplasm of large intestine; Z86.711 Personal history of pulmonary embolism; Z90.710 Acquired absence of both cervix and uterus; Z90.49 Acquired absence of other specified parts of digestive tract; Z80.1 Family history of malignant neoplasm of trachea, bronchus and lung; Z87.891 Personal history of nicotine dependence; Z79.01 Long term (current) use of anticoagulants; Z79.899 Other long term (current) drug therapy
CPT/HCPCS: 52332; C1769; J2250; J1100; J0690; J2405; J2003; J3010; J2704

== ENCOUNTER → 2024-06-15 | Outpatient (CLI) | payer MEDICARE, BC ==
[2024-06-15 11:27] LABS: African American GFR (CKD) 37 (>60 ml/min/1.73 sqM); Blood Urea Nitrogen 24 mg/dL (7-17); Non-African American GFR(CKD) 32 (>60 ml/min/1.73 sqM)
--- NOTE | 2024-06-15 19:24 | CT ---
EXAMINATION TYPE: CT ChestAbdPelvis wo con DATE OF EXAM: 06/15/2024 4:57 PM COMPARISON: Pet/CT 03/24/2024. CLINICAL INDICATION: Female, 68 years old with history of C18.2 MALIGNANT NEOPLASM OF ASCENDING COLON ; PH[facility], Malignant neoplasm of ascending colon Technique: CT ChestAbdPelvis wo con; Multiple axial images were obtained. Two-dimensional coronal and sagittal reconstructions were obtained. Contrast used: mL of , (None if empty) Oral contrast used: with Oral Contrast CT DLP: 1220 mGycm, Automated exposure control for dose reduction was used. Findings: CHEST: LUNGS/ PLEURA: Atelectasis in the lung bases. There is a area of thick-walled possible mass with cavi tation in the left upper lobe anteriorly. Thick zacarias have decreased in size compared to prior.r ther e remains suspicious for malignancy measuring in totality 25 x 20 mm previously 23 x 22 mm with thick er zacarias. No new or enlarging masses or pulmonary nodules. AIRWAY: Patent and unremarkable. HEART: Size within normal limits. Mild coronary artery calcifications present. MEDIASTINUM: No gross evidence of adenopathy. VASCULATURE: No aortic aneurysm. Great central venous catheter tip terminates in the superior vena c ruddy. MUSCULOSKELETAL: Mild disc degeneration changes are present throughout the thoracolumbar spine. Nonfu sed left rib 5 and 6 fractures. SOFT TISSUES/LYMPH NODES: Soft tissue likely postsurgical change the left breast is unchanged from pr ior with small fluid collection measuring 18 x 10 mm. LOWER NECK: No significant findings. ABDOMEN: ABDOMEN LIVER: Unremarkable GALLBLADDER AND BILE DUCTS: The gallbladder surgically absent. PANCREAS: Unremarkable. SPLEEN: Unremarkable. ADRENAL GLANDS: Unremarkable. KIDNEYS AND URETERS: Left ureteral stent in place with superior and inferior pigtails in appropriate position. Mild dilation of the right renal collecting systems obstructing focus identified. PELVIS BLADDER: Unremarkable REPRODUCTIVE: The uterus is atrophic or surgically absent. Stable right labia majora simultaneous pro bable cyst measuring 7 mm series 3 image 124. ABDOMEN & PELVIS STOMACH AND BOWEL: Postsurgical changes of the colon. No definitive recurrent mass identified. No lym phadenopathy identified. No evidence of bowel obstruction. PERITONEUM/RETROPERITONEUM: No evidence of pneumoperitoneum. Trace free fluid within the pelvis and a bdomen. VASCULATURE: No evidence of aortic aneurysm. MUSCULOSKELETAL: No acute osseous abnormalities. Mild disc degeneration changes are present throughou t the thoracolumbar spine. LYMPH NODES: No gross evidence for lymphadenopathy. SOFT TISSUE/ABDOMINAL WALL: Posterior low left back probable sebaceous cyst measuring up to 27 mm not significantly changed from prior. IMPRESSION: 1. Postsurgical changes to the ascending colon without evidence for recurrent mass or lymphadenopath y. 2. Left breast posttreatment changes no new or enlarging mass. Small fluid collection possibly serom a remains present. No new or enlarging lymphadenopathy. 3. Left upper lung cavitary lesion as seen on 03/24/2024 with thinner zacarias on today's exam. 4. Left ureteral stent in appropriate position. 5. Mild right hydroureteronephrosis without evidence for obstructing calculus. [facility], , 06/15/2024 7:22 PM
== END | disposition home or self-care (01) ==
LOC: RADCTMAIN 10:37
PROVIDERS: ATTEND Internal Medicine Hematology & Oncology
DX: C18.2 Malignant neoplasm of ascending colon (principal); I10 Essential (primary) hypertension; R91.1 Solitary pulmonary nodule; D47.2 Monoclonal gammopathy; D05.12 Intraductal carcinoma in situ of left breast; N64.89 Other specified disorders of breast; J98.4 Other disorders of lung; N13.39 Other hydronephrosis; Z98.890 Other specified postprocedural states
CPT/HCPCS: 36415; 71250; 74176; 82565; 84520

== ENCOUNTER → 2024-07-04 | Outpatient (CLI) | payer MEDICARE, BC ==
[2024-07-04 18:04] LABS: Basophils # (A) 0.12 X 10*3/uL (0.00-0.10); Basophils % (A) 1.1 %; Eosinophils # (A) 0.38 X 10*3/uL (0.04-0.35); Eosinophils % (A) 3.6 %; HCT 29.8 % (37.2-46.3); HGB 9.2 g/dL (12.0-15.0); Lymphocytes # (A) 1.76 X 10*3/uL (0.90-5.00); Lymphocytes % (A) 16.8 %; MCH 28.6 pg (27.0-32.0); MCHC 30.9 g/dL (32.0-37.0); MCV 92.5 FL (80.0-97.0); Mean Platelet Volume 10.9 FL (9.5-12.2); Monocytes # (A) 0.92 X 10*3/uL (0.20-1.00); Monocytes % (A) 8.8 %; NRBC Per 100 WBC 0 X 10*3/uL (0.00-0.01); Neutrophils # (A) 7.23 X 10*3/uL (1.80-7.70); Neutrophils % (A) 69.3 %; Platelet Count 317 X 10*3/uL (140-440); RBC 3.22 X 10*6/uL (4.10-5.20); WBC 10.45 X 10*3/uL (4.50-10.00)
[2024-07-04 18:16] LABS: BUN/Creat Ratio 9.88 Ratio (12.00-20.00); Blood Urea Nitrogen 16.8 mg/dL (9.0-27.0); Calcium 9.1 mg/dL (8.7-10.3); Carbon Dioxide 23.3 mmol/L (21.6-31.8); Chloride 104 mmol/L (96-109); Glucose 112 mg/dL (70-110); Potassium 3.9 mmol/L (3.5-5.5); Sodium 140 mmol/L (135-145)
== END | disposition home or self-care (01) ==
LOC: LABWHC1 13:36
PROVIDERS: ATTEND Urology
DX: Z01.812 Encounter for preprocedural laboratory examination (principal); N13.30 Unspecified hydronephrosis
CPT/HCPCS: 36415; 80048; 85025

== ENCOUNTER → 2024-07-06 | Outpatient (CLI) | payer MEDICARE, BC ==
--- NOTE | 2024-07-06 13:44 | MR ---
EXAMINATION TYPE: MR brain wo/w con DATE OF EXAM: 07/06/2024 1:33 PM COMPARISON: Correlation CT body 06/15/2024 CLINICAL INDICATION: Female, 69 years old with history of C18.2 colon ca, Dizziness, syncope, hx of c olon cancer IV Contrast: 8 cc Gadobutrol (None if empty) TECHNIQUE: Multiplanar, multisequence images of the brain and brainstem were acquired before and aft er administration of 8 mL IV Gadobutrol. Diffusion weighted imaging is performed. FINDINGS: No evidence for acute infarction, hemorrhage, mass, mass effect, midline shift, herniation, effacemen t of basal cisterns, or extra-axial fluid collection. The ventricles and sulci are age-appropriate. Major intracranial flow voids are intact. T2/FLAIR weighted sequences shows mild to moderate scattered bright signal foci throughout the subcor tical, deep, and periventricular regions of both cerebral hemispheres. Additional patchy increased si gnal changes in the bilateral paramedian porfirio. There is increased FLAIR signal within the left cerebellopontine angle without correlate on T2 are po stcontrast sequences. Finding suggests CSF flow artifact Midline structures demonstrate normal morphology. The craniocervical junction is normal. Post contrast images demonstrate no evidence of pathologic enhancement. Dural venous sinuses are pat ent. Trace mucosal thickening ethmoid air cells. Small amount of fluid scattered within the bilateral mast oid air cells. Globes are intact. IMPRESSION: 1. No acute intracranial abnormality seen or enhancing intracranial lesions. 2. Mild to moderate scattered burden of chronic small vessel ischemic disease. 3. Some scattered fluid within the bilateral mastoid air cells. Correlate for any mastoid pain to exc lude mastoiditis. [facility], , 07/06/2024 1:41 PM
== END | disposition home or self-care (01) ==
LOC: RADMRIMAIN 12:36
PROVIDERS: ATTEND Internal Medicine Hematology & Oncology
DX: C18.2 Malignant neoplasm of ascending colon (principal); I67.82 Cerebral ischemia; J34.89 Other specified disorders of nose and nasal sinuses
CPT/HCPCS: 70553; A9585

== ENCOUNTER 2024-09-02 05:48 | Emergency (ER) | payer MEDICARE, BC ==
[2024-09-02 05:54] VITALS: RESP 16
--- NOTE | 2024-09-02 06:04 | ED ---
Fall HPI - General Chief Complaint: Fall Stated Complaint: Fall Time Seen by Provider: 09/02/24 06:04 Source: patient, EMS, RN notes reviewed Mode of arrival: EMS Limitations: no limitations - History of Present Illness Initial Comments: 69 year old female presented the ER via EMS for evaluation of fall. Patient states this morning around 345 she woke up in the middle the night. Patient states she attempted to go downstairs however home when she accidentally missed a step. She states she fell down approximately 2 steps and then landed on her bottom. She states she slid on her bottom approximately 12 stairs. Patient denies head injury, loss of consciousness. Patient does take Eliquis for history of embolisms. She states given taking blood thinners she to be evaluated in the emergency department. Patient states for approximately 2 hours she was down and she was unable to get up and she was "scooting" around her home attempting to get up and looking for a phone to call her daughter. Patient does report a history of colon cancer with metastasis and follows up with . She is currently on chemotherapy, last treatment 08-29-2024. Patient states she also received blood transfusions as well. She denies any dizziness, lightheadedness, chest pain or shortness of breath prior to fall. Patient denies any current pain or discomfort. She denies any recent fevers, chills, myalgias. Patient does admit to nausea and diarrhea but states this is chronic due to chemotherapy. Denies any urinary complaints, chest pain, shortness of br eath, dizziness or lightheadedness. Tetanus up-to-date - Related Data Home Medications Medication Instructions Recorded Confirmed Tamoxifen Citrate 20 mg PO DAILY 12/16/17 07/14/24 Cholecalciferol [Vitamin D3 (25 50 mcg PO DAILY 05/02/20 07/14/24 Mcg = 1000 Iu)] Cetuximab [Erbitux] 1 dose IV TU 09/04/22 07/14/24 Prochlorperazine Maleate 10 mg PO Q6H PRN 09/04/22 07/14/24 Valsartan 320 mg PO DAILY 09/04/22 07/14/24 DULoxetine HCL [Cymbalta] 60 mg PO BID 09/05/23 07/14/24 Encorafenib [Braftovi] 300 mg PO HS 09/05/23 07/14/24 Magnesium Oxide [Magnesium] 500 mg PO HS 12/04/23 07/14/24 Scopolamine 1 mg/72 Hr Patch 1 patch TRANSDERM Q72H PRN 12/04/23 07/14/24 [TransDerm Scop] Apixaban [Eliquis] 5 mg PO BID 04/11/24 07/14/24 Doxycycline Hyclate 100 mg PO DIRECTED 04/11/24 07/14/24 Metoprolol Succinate (ER) [Toprol 150 mg PO DAILY 04/11/24 07/14/24 XL] Allergies Allergy/AdvReac Type Severity Reaction Status Date / Time No Known Allergies Allergy Verified 09/02/24 05:54 Review of Systems ROS Statement: Those systems with pertinent positive or pertinent negative responses have been documented in the HPI. ROS Other: All systems not noted in ROS Statement are negative. Past Medical History Past Medical History: Cancer, Pulmonary Embolus (PE) Additional Past Medical History / Comment(s): LT BREAST CANCER, colon cancer stage II-METS TO OVARIES-with chemo. last chemo june 2020. METS to both lungs History of Any Multi-Drug Resistant Organisms: None Reported Past Surgical History: Bowel Resection, Breast Surgery, Cholecystectomy, Hysterectomy Additional Past Surgical History / Comment(s): LT BREAST LUMPECTOMY-RADIATION, COLONOSCOPY, HAS PORT A CATH, Urethral stent-replaced every 3 months Past Anesthesia/Blood Transfusion Reactions: No Reported Reaction Additional Past Anesthesia/Blood Transfusion Reaction / Comment(s): No problems with previous blood transfusion. Past Psychological History: No Psychological Hx Reported Smoking Status: Former smoker Past Alcohol Use History: Occasional Past Drug Use History: None Reported - Past Family History Mother Family Medical History: COPD, Dementia Father Family Medical History: AFIB, Cancer Additional Family Medical History / Comment(s): Lung cancer. Sister(s) Family Medical History: Cancer Additional Family Medical History / Comment(s): VOCAL CORD CANCER. General Exam Limitations: no limitations General appearance: alert, in no apparent distress Head exam: Present: normocephalic, other (1cm abrasion right parietal scalp mild surrounding contuion no actve bleeding) Eye exam: Present: normal appearance, PERRL, EOMI, scleral icterus. Absent: conjunctival injection, periorbital swelling Pupils: Present: normal accommodation ENT exam: Present: normal oropharynx, mucous membranes moist (Edema and contusion noted to left upper lip. No active bleeding. Teeth intact) Neck exam: Present: normal inspection. Absent: tenderness, meningismus, lymphadenopathy Respiratory exam: Present: normal lung sounds bilaterally. Absent: respiratory distress, wheezes, rales, rhonchi, stridor Cardiovascular Exam: Present: regular rate, normal rhythm, normal heart sounds. Absent: systolic murmur, diastolic murmur, rubs, gallop, clicks GI/Abdominal exam: Present: soft, normal bowel sounds. Absent: distended, tenderness, guarding, rebound, rigid Extremities exam: Present: normal inspection, full ROM, normal capillary refill (2+ bilateral radial and PT pulses). Absent: tenderness, pedal edema, joint swelling, calf tenderness Neurological exam: Present: alert, oriented X3, CN II-XII intact Skin exam: Present: warm, dry, abrasion (Bilateral elbows. Abrasion noted to dorsal aspect left hand.), other (jaundice) Course Vital Signs 09/02/24 09/02/24 09/02/24 05:50 06:39 10:09 Temperature 97.9 F Pulse Rate 91 72 82 Respiratory 16 16 16 Rate Blood Pressure 123/87 103/62 O2 Sat by Pulse 99 95 Oximetry 09/02/24 12:37 Temperature 97.3 F L Pulse Rate 76 Respiratory 16 Rate Blood Pressure 144/83 O2 Sat by Pulse 97 Oximetry - Reevaluation(s) Reevaluation #1: 09/02/24 10:34 Patient auto accepted by [facility] without speaking to provider. Accepting physician Dr. Deluca. 09/02/24 11:37 I was notified by nursing staff while patient was being assisted to the bathroom patient had a fall in the bathroom. Per RN patient was found with head leaning against the door. Code coag activated and CT C-spine ordered.Patient reevaluated no signs of acute distress. No acute injuries. Medical Decision Making - Medical Decision Making Was pt. sent in by a medical professional or institution (, PA, ELEMENTARY SPECIAL EDUCATION TEACHER, urgent care, hospital, or longterm...) When possible be specific @ -No Did you speak to anyone other than the patient for history (EMS, parent, family, police, friend...)? What history was obtained from this source @ -Family, bedside, aiding in past medical history Did you review nursing and triage notes (agree or disagree)? Why? @ -I reviewed and agree with nursing and triage notes Were old charts reviewed (outside hosp., previous admission, EMS record, old EKG, old radiological studies, urgent care reports/EKG's, longterm records)? Report findings @ -Prior medical records Differential Diagnosis (chest pain, altered mental status, abdominal pain women, abdominal pain men, vaginal bleeding, weakness, fever, dyspnea, syncope, headache, dizziness, GI bleed, back pain, seizure, CVA, palpatations, mental health, musculoskeletal)? @ -Differential Weakness:Hypoglycemia, shock, sepsis, hyponatremia, anemia, infection, GA, ETOH, adverse medicine reaction, overdose, stroke, this is not meant to be an all-inclusive list. EKG interpreted by me (3pts min.). @ -As above X-rays interpreted by me (1pt min.). @ -None done CT interpreted by me (1pt min.). @ -CT brain C-spine negative for acute intracranial hemorrhage or mass effect. No cervical spine fractures or dislocations. CT abdomen pelvis without contrast showing biliary dilation versus periportal edema recommending MRCP evaluation. Postsurgical changes noted to ascending colon without evidence of recurrent mass or lymphadenopathy. Left ureteral stent in appropriate position. Gas in the bladder and collecting system. Mild right hydroureteronephrosis without evidence of obstructing calculus. Repeat CT brain mild scalp swelling along right superior convexity. No acute intracranial abnormality. U/S interpreted by me (1pt. min.). @ -None done What testing was considered but not performed or refused? (CT, X-rays, U/S, labs )? Why? @ -None What meds were considered but not given or refused? Why? @ -Patient refused analgesics Did you discuss the management of the patient with other professionals (professionals i.e. , PA, ELEMENTARY SPECIAL EDUCATION TEACHER, lab, RT, psych nurse, social welfare research worker, weigher bulker, teacher, public records officer, case liner)? Give summary @ -I did not discussed case with [facility] as a auto excepted patient without speaking to provider. Accepting physician, . Was smoking cessation discussed for >3mins.? @ -No Was critical care preformed (if so, how long)? @ -No Were there social determinants of health that impacted care today? How? (Homelessness, low income, unemployed, alcoholism, drug addiction, transport ation, low edu. Level, literacy, decrease access to med. care, longterm, rehab)? @ -No Was there de-escalation of care discussed even if they declined (Discuss DNR or withdrawal of care, Hospice)? DNR status @ -No What co-morbidities impacted this encounter? (DM, HTN, Smoking, COPD, CAD, Cancer, CVA, ARF, Chemo, Hep., AIDS, mental health diagnosis, sleep apnea, morbid obesity)? @ -History of colon cancer with metastasis. Bowel resection completed in 2018 at [facility] patient is currently on chemotherapy. History of PE on Eliquis. History of cholecystectomy, hysterectomy Was patient admitted / discharged? Hospital course, mention meds given and route, prescriptions, significant lab abnormalities, going to OR and other pertinent info. @ -Transferred. 69-year-old female presented the ER via EMS for evaluation status post fall. Upon arrival code coag activated as patient takes Eliquis with possible head injury. Vital signs stable. Upon my evaluation patient resting comfortably on stretcher no signs of acute distress. C-collar in place. No acute neurological findings on exam. Patient is neurovascularly intact. There are multiple abrasions noted to bilateral elbows and left hand. Tetanus up-to-date, per patient. Patient does appear jaundiced with scleral icterus noted. There is no focal abdominal tenderness to palpation. No rebound or guarding Laboratory studies obtained remarkable for WBC 8.3, hemoglobin 8.5 (07-04-2024 hemoglobin 9.2). Patient does report she receives blood transfusions after chemotherapy. Last chemotherapy treatment on 08-29-2024. CMP impressive for transaminitis with total bilirubin 5.5, AST 143, ALT 117, alk phos 635 this is markedly elevated from comparison on 02-18-24 total bilirubin 0.2. Creatinine kinase 87. BUN 24, creatinine 1.6 with a GFR 33 this appears to be patient's baseline. Urinalysis concerning of infection with many bacteria and greater than 182 urine RBCs and WBCs for which patient was started on IV Rocephin. Blood cultures obtained prior to antibiotic initiation. Urine culture pending. Given transaminitis CT abdomen pelvis was obtained showing concern of biliary dilation versus periportal edema further evaluation with MRCP recommended. There is a left ureteral stent in appropriate position. Gas in bladder and collecting system. CT brain/C-spine negative for acute process. Given need for higher level of care and GI evaluation, case was discussed with [facility] by community services coordinator who auto accepted transfer without speaking to provider. Accepting physician, Dr. Deluca. Patient provided with 500 mL IV fluid bolus in the emergency department. Patient refused analgesic medications. Upon reevaluation patient educated on today's findings, all questions answered. Prior to transfer, patient was to bathroom via wheelchair by nursing staff. I was notified patient had a fall in the bathroom while ambulating from wheelchair to toilet. Patient does admit to head injury. Code coag activated [address] brain ordered at that time. Patient reevaluated no signs acute distress. There are no acute injuries. Repeat CT brain negative for acute intracranial abnormality. Patient reevaluated, repeat CT brain results discussed with patient. Left hand abrasion dressed by RN. Patient is agreeable for transfer and will be transferred in stable condition via EMS to [facility] for further evaluation and treatment. Case discussed with ED attending, Dr. Aly. Undiagnosed new problem with uncertain prognosis? @ -No Drug Therapy requiring intensive monitoring for toxicity (Heparin, Nitro, Insulin, Cardizem)? @ -No Were any procedures done? @ -No Diagnosis/symptom? @ -Transaminitis/ r/o biliary dilation vs. periportal edema/ frequent falls/ abrasions/ UTI Acute, or Chronic, or Acute on Chronic? @ -Acute Uncomplicated (without systemic symptoms) or Complicated (systemic symptoms)? @ -Complicated Side effects of treatment? @ -No Exacerbation, Progression, or Severe Exacerbation? @ -No Poses a threat to life or bodily function? How? (Chest pain, USA, GA, pneumonia, PE, COPD, DKA, ARF, appy, cholecystitis, CVA, Diverticulitis, Homicidal, Suicidal, threat to staff... and all critical care pts) @ -Yes, malignancy is present. - Lab Data Result diagrams: 09/02/24 06:19 09/02/24 06:19 Lab Results 09/02/24 09/02/24 09/02/24 Range/Units 06:19 06:19 10:46 WBC 8.33 (4.50-10.00) 10*3/uL RBC 2.92 L (4.10-5.20) 10*6/uL Hgb 8.5 L (12.0-15.0) g/dL Hct 24.9 L (37.2-46.3) % MCV 85.3 (80.0-97.0) fL MCH 29.1 (27.0-32.0) pg MCHC 34.1 (32.0-37.0) g/dL Plt Count 143 (140-440) 10*3/uL MPV 12.1 (9.5-12.2) fL Immature Gran % (Auto) 5.9 % Neutrophils % 87.0 % Lymphocytes % 5.5 % Monocytes % 1.2 % Eosinophils % 0.0 % Basophils % 0.4 % Immature Gran # 0.49 H (0.00-0.04) 10*3/uL Neutrophils # 7.25 (1.80-7.70) 10*3/uL Lymphocytes # 0.46 L (0.90-5.00) 10*3/uL Monocytes # 0.10 L (0.20-1.00) 10*3/uL Eosinophils # 0.00 L (0.04-0.35) 10*3/uL Basophils # 0.03 (0.00-0.10) 10*3/uL Manual Slide Review Performed Sodium 131 L (137-145) mmol/L Potassium 3.7 (3.5-5.1) mmol/L Chloride 101 (98-107) mmol/L Carbon Dioxide 15 L (22-30) mmol/L Anion Gap 15 mmol/L BUN 24 H (7-17) mg/dL Creatinine 1.60 H (0.52-1.04) mg/dL Est GFR (CKD-EPI)AfAm 38 (>60 ml/min/1.73 sqM) Est GFR (CKD-EPI)NonAf 33 (>60 ml/min/1.73 sqM) Glucose 117 H (74-99) mg/dL Calcium 8.5 (8.4-10.2) mg/dL Total Bilirubin 5.5 H (0.2-1.3) mg/dL AST 143 H (14-36) U/L ALT 117 H (4-34) U/L Alkaline Phosphatase 635 H (38-126) U/L Creatine Kinase 87 (30-135) U/L Total Protein 6.2 L (6.3-8.2) g/dL Albumin 3.0 L (3.5-5.0) g/dL Urine Color Dark Red Urine Appearance Turbid H (Clear) Urine pH 6.0 (5.0-8.0) Ur Specific [place] 1.020 (1.001-1.035) Urine Protein 2+ H (Negative) Urine Glucose (UA) Negative (Negative) Urine Ketones Trace H (Negative) Urine Blood Large H (Negative) Urine Nitrite Negative (Negative) Urine Bilirubin Negative (Negative) Urine Urobilinogen <2.0 (<2.0) mg/dL Ur Leukocyte Esterase Large H (Negative) Urine RBC >182 H (0-5) /hpf Urine WBC >182 H (0-5) /hpf Urine WBC Clumps Many H (None) /hpf Ur Squamous Epith Cells 6 H (0-4) /hpf Urine Bacteria Many H (None) /hpf Urine Yeast (Budding) Many H (None) /hpf - EKG Data -: EKG Interpreted by Me EKG Comments: EKG taken at 5: 52 showing a sinus rhythm. No ST segment elevations or depressions. No T wave versions. QRS duration 85, QT/QTc 329/367 - Radiology Data Radiology results: report reviewed, image reviewed Disposition Clinical Impression: Fall, Multiple abrasions, Transaminitis, Dilation of biliary tract, UTI (urinary tract infection) Disposition: OTHER INSTITUTION NOT DEFINED Condition: Stable Referrals: Josefa Asif MD [Primary Care Provider] - 1-2 days Time of Disposition: 10:34 - Out of Hospital Transfer - Req. Specs Out of Hospital Transfer - [facility]
--- NOTE | 2024-09-02 06:29 | CT ---
EXAM: CT Head Without Intravenous Contrast CLINICAL HISTORY: ITS.REASON CT Reason: head injury on thinners TECHNIQUE: Axial computed tomography images of the head/brain without intravenous contrast. CTDI is 45.2 mGy and DLP is 1100 mGy-cm. This CT exam was performed using one or more of the following dose reduction techniques: automated exposure control, adjustment of the mA and/or kV according to patient size, and/or use of iterative reconstruction technique. COMPARISON: CT dated 09/07 22.4. FINDINGS: Brain: Hypodense changes are seen within the periventricular and deep white matter. No hemorrhage. Ventricles: Unremarkable. No ventriculomegaly. Bones/joints: Unremarkable. No acute fracture. Soft tissues: Unremarkable. Sinuses: Unremarkable as visualized. No acute sinusitis. Mastoid air cells: Unremarkable as visualized. No mastoid effusion. IMPRESSION: No acute intracranial findings. No intracranial hemorrhage. EXAM: CT Cervical Spine Without Intravenous Contrast CLINICAL HISTORY: ITS.REASON CT Reason: head injury on thinners TECHNIQUE: Axial computed tomography images of the cervical spine without intravenous contrast. CTDI is 8.7 mGy and DLP is 268.1 mGy-cm. This CT exam was performed using one or more of the following dose reduction techniques: automated exposure control, adjustment of the mA and/or kV according to patient size, and/or use of iterative reconstruction technique. COMPARISON: No relevant prior studies available. FINDINGS: Vertebrae: Degenerative sclerosis is seen at the superior endplate of C7. Multilevel degenerative endplate and uncovertebral hypertrophy. Bone island is seen within the spinous process of T1. No acute fracture. Discs/spinal canal/neural foramina: No acute findings. No spinal canal stenosis. Soft tissues: Unremarkable. IMPRESSION: No acute findings. No evidence of fracture.
[2024-09-02 07:09] LABS: ALT 117 U/L (4-34); African American GFR (CKD) 38 (>60 ml/min/1.73 sqM); Anion Gap 15 mmol/L; Blood Urea Nitrogen 24 mg/dL (7-17); Calcium 8.5 mg/dL (8.4-10.2); Carbon Dioxide 15 mmol/L (22-30); Chloride 101 mmol/L (98-107); Creatine Kinase 87 U/L (30-135); Glucose 117 mg/dL (74-99); Non-African American GFR(CKD) 33 (>60 ml/min/1.73 sqM); Sodium 131 mmol/L (137-145)
[2024-09-02 07:26] LABS: AST 143 U/L (14-36); Albumin 3.0 g/dL (3.5-5.0); Alkaline Phosphatase 635 U/L (38-126); Potassium 3.7 mmol/L (3.5-5.1); Total Protein 6.2 g/dL (6.3-8.2)
[2024-09-02 08:02] LABS: Basophils # (A) 0.03 10*3/uL (0.00-0.10); Basophils % (A) 0.4 %; Eosinophils # (A) 0.00 10*3/uL (0.04-0.35); Eosinophils % (A) 0.0 %; HCT 24.9 % (37.2-46.3); HGB 8.5 g/dL (12.0-15.0); Lymphocytes # (A) 0.46 10*3/uL (0.90-5.00); Lymphocytes % (A) 5.5 %; MCH 29.1 pg (27.0-32.0); MCHC 34.1 g/dL (32.0-37.0); MCV 85.3 fL (80.0-97.0); Monocytes # (A) 0.10 10*3/uL (0.20-1.00); Monocytes % (A) 1.2 %; Neutrophils # (A) 7.25 10*3/uL (1.80-7.70); Neutrophils % (A) 87.0 %; Platelet Count 143 10*3/uL (140-440); RBC 2.92 10*6/uL (4.10-5.20); RDW 18.7 % (11.5-14.5); WBC 8.33 10*3/uL (4.50-10.00)
--- NOTE | 2024-09-02 09:11 | CT ---
EXAMINATION TYPE: CT abdomen pelvis wo con DATE OF EXAM: 09/02/2024 9:02 AM COMPARISON: CT abdomen pelvis most recent from 06/15/2024 CLINICAL INDICATION: Female, 69 years old with history of Jaundice/transaminitis/hx colon ca; jaundic e, transaminitis, hx of colon cancer TECHNIQUE: Axial CT abdomen pelvis wo con;Sagittal and coronal reformats were created on a separate workstation. Contrast used: mL of , (none if empty) Oral contrast used: without Oral Contrast (none if empty) CT DLP: 503.9 mGycm, Automated exposure control for dose reduction was used. FINDINGS: CHEST: Partially visualized suspected atelectasis changes in the lung bases are not significantly cintia nged from 06/15/2024. ABDOMEN: ABDOMEN LIVER: Unremarkable GALLBLADDER AND BILE DUCTS: The gallbladder surgically absent. There may be biliary dilation versus p eriportal edema. PANCREAS: Unremarkable. SPLEEN: Unremarkable. ADRENAL GLANDS: Unremarkable. KIDNEYS AND URETERS: Left ureteral stent in place with superior and inferior pigtails in appropriate position. Mild dilation of the right renal collecting systems obstructing focus identified. A few foc i of gas are seen in the collecting system on the left. PELVIS BLADDER: Gas in the nondependent portion of the urinary bladder is present on today's exam. REPRODUCTIVE: The uterus is atrophic or surgically absent. Stable right labia majora lesion measuring 7 mm. ABDOMEN & PELVIS STOMACH AND BOWEL: Postsurgical changes of the colon. No definitive recurrent mass identified. No lym phadenopathy identified. No evidence of bowel obstruction. PERITONEUM/RETROPERITONEUM: No evidence of pneumoperitoneum. Trace free fluid within the pelvis and a bdomen. VASCULATURE: Moderate atherosclerotic calcifications are present throughout the abdominal aorta and i ts branches. No evidence of aortic aneurysm. MUSCULOSKELETAL: No acute osseous abnormalities. Mild disc degeneration changes are present throughou t the thoracolumbar spine. LYMPH NODES: No gross evidence for lymphadenopathy. SOFT TISSUE/ABDOMINAL WALL: Posterior low left back probable sebaceous cyst measuring up to 27 mm not significantly changed from prior. IMPRESSION: 1. There may be biliary dilation versus periportal edema. Further evaluation MRCP is recommended. 2. Similar Postsurgical changes to the ascending colon without evidence for recurrent mass or lympha denopathy. 3. Left ureteral stent in appropriate position. Gas in the bladder and the collecting system correla te with urinalysis to exclude underlying infection. 4. Mild right hydroureteronephrosis without evidence for obstructing calculus. [facility], , 09/02/2024 9:09 AM
[2024-09-02] MEDS: SODIUM CHLORIDE 0.9% 500 ML 500 ML IV ONE (10:12)
[2024-09-02 11:01] LABS: Bacteria,Urine Many /hpf; Bilirubin,Urine Negative (Negative); Blood,Urine Large (Negative); Budding Yeast,Urine Many /hpf; Color,Urine Dark Red; Glucose,Urine (UA) Negative (Negative); Ketones,Urine Trace (Negative); Leukocyte Esterase,Urine Large (Negative); Nitrite,Urine Negative (Negative); PH, Urine 6.0 (5.0-8.0); Protein,Urine 2+ (Negative); RBC,Urine >182 /hpf (0-5); Squamous Epithelial Cell,Urine 6 /hpf (0-4); Urobilinogen,Urine <2.0 mg/dL (<2.0); WBC,Urine >182 /hpf (0-5)
[2024-09-02 11:09] LABS: Specific Gravity,Urine 1.020 (1.001-1.035)
--- NOTE | 2024-09-02 12:18 | CT ---
EXAMINATION TYPE: CT brain wo con DATE OF EXAM: 09/02/2024 12:00 PM COMPARISON: Earlier today CLINICAL INDICATION: Female, 69 years old with history of fall in bathroom, pain TECHNIQUE: Examination was done in axial plane without intravenous contrast. Coronal and sagittal r econstructions performed. CT DLP: 1229.4 mGycm, Automated exposure control for dose reduction was used. FINDINGS: There is no evidence of acute intracranial hemorrhage, acute ischemic changes, mass, mass-effect, or extra-axial fluid collection. There is no effacement of cerebral sulci or basal subarachnoid cister ns. There is no hydrocephalus. There is no midline shift. Neumann-white matter distinction is preserv ed. There is mild scalp swelling along the right superior convexity. No underlying calvarial fracture. Paranasal sinuses and mastoid air cells are well pneumatized. Orbits and globes are intact. IMPRESSION: Mild calcified swelling along the right superior convexity. No acute intracranial abnormality seen. [facility], , 09/02/2024 12:16 PM
[2024-09-02 12:40] VITALS: BP 144/83; PULSE 76; TEMP 97.3
== END 2024-09-02 12:00 | disposition other institution (70) ==
LOC: EC 05:48
DX: S00.01XA Abrasion of scalp, initial encounter (principal); S60.512A Abrasion of left hand, initial encounter; N39.0 Urinary tract infection, site not specified; R74.01 Elevation of levels of liver transaminase levels; K83.8 Other specified diseases of biliary tract; W10.9XXA Fall (on) (from) unspecified stairs and steps, initial encounter
CPT/HCPCS: 36415; 93005; 80053; 82550; 85025; 81001; 87040; 87086; 72125; 70450; 74176; 99285; 96365; 96361; J0696; 87077; 87186